=== PATIENT | female | born 1950 | race Two or more races ===

== ENCOUNTER 2016-03-10 15:09 | Emergency (ER) | payer MEDICARE, OTHER ==
[2016-03-10 15:42] LABS: ABSOLUTE BASOPHILS # (AUTO) 0.1 10^3/uL (0.0-0.2); ABSOLUTE EOSINOPHILS # (AUTO) 0.2 10^3/uL (0.0-0.6); ABSOLUTE LYMPHOCYTES (AUTO) 2.4 10^3/uL (0.5-4.7); ABSOLUTE MONOCYTES (AUTO) 0.7 10^3/uL (0.1-1.4); ABSOLUTE NEUT (AUTO) 7.4 10^3/uL (1.7-8.2); BASOPHILS % (AUTO) 0.7 % (0-2); EOSINOPHILS % (AUTO) 2.1 % (0-6); HEMATOCRIT 41.7 % (36.0-47.0); HEMOGLOBIN 13.9 g/dL (12.0-15.5); LYMPHOCYTES % (AUTO) 22.3 % (13-45); MEAN CORPUSCULAR HEMOGLOBIN 27.9 pg (27.0-33.4); MEAN CORPUSCULAR HGB CONC 33.3 g/dL (32.0-36.0); MEAN CORPUSCULAR VOLUME 84 fl (80-97); MONOCYTES % (AUTO) 6.7 % (3-13); RED BLOOD COUNT 4.97 10^6/uL (3.72-5.28); RED CELL DISTRIBUTION WIDTH 13.7 % (11.5-14.0); SEGMENTED NEUTROPHILS % (AUTO) 68.2 % (42-78); WHITE BLOOD COUNT 10.8 10^3/uL (4.0-10.5)
[2016-03-10 15:46] LABS: PROTHROMBIN TIME 11.9 SEC (11.4-15.4)
--- NOTE | 2016-03-10 16:01 | ER Document Report ---
ED General - General Chief Complaint: Blood Pressure Problem Stated Complaint: HEAD PAIN Time seen by provider: 15:56 Mode of Arrival: Medic Information source: Patient Notes: This is a 65-year-old female initially brought in by EMS because of marked elevation in blood pressure, headache, blurred vision. The blood pressure in the field was 260/120. EMS attempted to establish IV access and was unsuccessful. Patient did refuse nitroglycerin in the field. Patient currently states that she does have numbness to the mouth and to the right side. She was initially reluctant to tell me these things because she is fearful about it being admitted to the hospital. The patient states her symptoms started Wednesday (2 days ago). TRAVEL OUTSIDE OF THE [place] IN LAST 30 DAYS: No - HPI Onset: Last week Onset/Duration: Gradual Quality of pain: No pain Severity: None Pain Level: Denies Associated symptoms: denies: Chest pain, Fever Exacerbated by: Denies Relieved by: Denies Similar symptoms previously: No Recently seen / treated by doctor: No - Related Data Allergies/Adverse Reactions: latex [Latex] Allergy (Mild, Verified 11/02/12 11:50) RASH Penicillins Allergy (Mild, Verified 11/02/12 11:50) RASH, BREATHING DIFFICULTY Past Medical History - General Information source: Patient - Social History Smoking Status: Current Every Day Smoker Cigarette use (# per day): Yes - 1 pack per day Chew tobacco use (# tins/day): No Frequency of alcohol use: None Drug Abuse: None Lives with: Alone Family History: None Patient has suicidal ideation: No Patient has homicidal ideation: No - Past Medical History Cardiac Medical History: Denies: Hx Heart Attack, Hx Hypertension Pulmonary Medical History: Denies: Hx Asthma Neurological Medical History: Denies: Hx Cerebrovascular Accident, Hx Seizures Endocrine Medical History: Reports: Hx Diabetes Mellitus Type 2 Renal/ Medical History: Reports: None Malignancy Medical History: Reports: None GI Medical History: Denies: Hx Hepatitis, Hx Hiatal Hernia, Hx Ulcer Musculoskeltal Medical History: Reports None Skin Medical History: Reports None Psychiatric Medical History: Reports: None Traumatic Medical History: Reports: None Infectious Medical History: Denies: Hx Hepatitis Past Surgical History: Reports: Hx Hysterectomy. Denies: Hx Mastectomy, Hx Open Heart Surgery, Hx Pacemaker Review of Systems - Review of Systems Constitutional: No symptoms reported EENT: No symptoms reported Cardiovascular: See HPI Respiratory: No symptoms reported Gastrointestinal: No symptoms reported Genitourinary: No symptoms reported Female Genitourinary: No symptoms reported Musculoskeletal: No symptoms reported Skin: No symptoms reported Hematologic/Lymphatic: No symptoms reported Neurological/Psychological: See HPI Physical Exam - Vital signs Vitals: Pulse Ox 99 03/10/16 15:37 - Notes Notes: Physical exam: GENERAL: 65-year-old female, alert and oriented 2, no acute distress. HEAD: Atraumatic, normocephalic. EYES: Pupils equal round and reactive to light, extraocular movements intact, sclera anicteric, conjunctiva are normal. ENT: TMs normal, nares patent, oropharynx clear without exudates. Moist mucous membranes. NECK: Normal range of motion, supple without lymphadenopathy or JVD. LUNGS: Breath sounds clear to auscultation bilaterally and equal. No wheezes rales or rhonchi. HEART: Regular rate and rhythm without murmurs, rubs or gallops. ABDOMEN: Soft, nontender, normoactive bowel sounds. No guarding, no rebound. No masses appreciated. EXTREMITIES: Normal range of motion, no pitting or edema. No clubbing or cyanosis. NEUROLOGICAL: NIH score: Patient is alert and can minimally responsive, she the month and her age, she is able to follow commands, she has a good horizontal gaze, her visual weinstein are grossly intact, she has no facial palsy, she appears to have some right motor arm weakness and right motor leg weakness(the extremities drift but did not touch the bed), patient has good sensation to the right side of the face is an extremities, the patient's picture description, object naming and sentence reading is good, the patient's speech clarity is good. Finger to nose and heel to nunn ataxia is present in the right side. Patient's NIH score is 4: Right sided sensory loss, right upper and lower motor weakness, ataxia on the right. PSYCH: Normal mood, normal affect. SKIN: Warm, Dry, normal turgor, no rashes or lesions noted. Course - Re-evaluation Re-evalutation: 03/10/16 16:02 Note: Patient does not meet criteria for thrombolytics based upon the time of onset (2 days ago) and markedly elevated blood pressure. 03/10/16 23:04 Note: I have had a long discussion with the patient and the patient's son who is at the bedside. The patient absolutely refuses to come into the hospital. She is very apprehensive because she feels that the doctors "killed her " and she hates coming to the hospital and she has a dog at home and she refuses to come into the hospital. Her blood pressure is lower (significantly improved from 260/120) in the field. However, her blood pressure was still elevated. I have discussed with them my desire to have her admitted for a workup and to follow her blood pressure and lower a little bit more slowly. I have informed her that the risk of a secondary stroke which could be life- threatening and significantly debilitating if she did not . However, the patient still refuses to come into the hospital. I've advised her to increase the aspirin to one a day (full strength). The patient states she is unwilling to do this, but she will take 2 baby aspirins a day (81 mg 2). I have offered to write the patient for a "cholesterol medicine" explaining that these medicines have been found useful to prevent strokes and heart attacks, but the patient states her cholesterol has been fine and she refuses that. I have offered to write the patient a blood pressure medicine, but she is unwilling to take that. She will follow-up with her wire communications engineer (Dr. Lr). The son will be taking the patient home [facility] and a daughter is coming up from [place] and will stay with the patient. I have advised strongly that the patient should cut down on her smoking, but her reaction leads me to think that she won't be doing so. The patient did agree to return tomorrow morning for repeat blood pressure check and I informed her that I will be in the emergency room at 10 AM and I have strongly encouraged her to do this. I have referred the patient to a primary care physician (Dr. Linares). 03/10/16 23:09 - Vital Signs Vital signs: Temp Pulse Resp BP Pulse Ox 98.3 F 21 H 196/83 H 94 03/10/16 16:12 03/10/16 17:01 03/10/16 17:01 03/10/16 17:01 - Laboratory Result Diagrams: 03/10/16 15:25 03/10/16 15:25 Laboratory results interpreted by me: 03/10/16 03/10/16 15:25 15:25 WBC 10.8 H BUN 21 H Creatinine 1.37 H Est GFR ( Amer) 47 L Est GFR (Non-Af Amer) 38 L Glucose 194 H Alkaline Phosphatase 133 H Albumin 3.1 L - Diagnostic Test Radiology reviewed: Image reviewed, Reports reviewed - Rest x-ray shows no infiltrates - EKG Interpretation by Me Rate: Normal Rhythm: NSR - Normal sinus rhythm, nonspecific T changes laterally, LVH with strain. Critical Care Note - Critical Care Note Total time excluding time spent on procedures (mins): 60 Discharge - Discharge Clinical Impression: acute stroke, hypertensive emergency Condition: Serious Disposition: AGAINST MEDICAL ADVICE Additional Instructions: Recommendations: As we discussed, would like you to stop smoking cigarettes. Increase the dose of aspirin as we discussed. Follow-up with Dr. Lr this Wednesday. You will need an outpatient ultrasound of the carotid arteries and an ultrasound of the heart (ECHO) and reevaluation for your cholesterol. Follow-up with a primary care doctor: I left the number for Dr. Linares.\\ Return to the emergency room tomorrow morning as we discussed for repeat blood pressure check. Forms: Elevated Blood Pressure, Smoking Cessation Education Referrals: AIXA GUTIERREZ MD [ACTIVE STAFF] - Follow up as needed
[2016-03-10 16:02] LABS: ALANINE AMINOTRANSFERASE 25 U/L (9-52); ALBUMIN 3.1 g/dL (3.5-5.0); ALKALINE PHOSPHATASE 133 U/L (38-126); ANION GAP 7 (5-19); ASPARTATE AMINO TRANSFERASE 23 U/L (14-36); BILIRUBIN,TOTAL 0.6 mg/dL (0.2-1.3); BLOOD UREA NITROGEN 21 mg/dL (7-20); CALCIUM 9.2 mg/dL (8.4-10.2); CARBON DIOXIDE 27 mmol/L (22-30); CHLORIDE 104 mmol/L (98-107); CREATINE KINASE 42 U/L (30-135); CREATININE RESULT 1.37 mg/dL (0.52-1.25); GLUCOSE 194 mg/dL (75-110); POTASSIUM 4.1 mmol/L (3.6-5.0); SODIUM 138.1 mmol/L (137-145); TOTAL PROTEIN 6.7 g/dL (6.3-8.2)
[2016-03-10 16:14] LABS: CREATINE KINASE MB 0.88 ng/mL (<4.55)
[2016-03-10 16:22] LABS: TROPONIN I < 0.012 ng/mL
[2016-03-10] MEDS ORDERED: LABETALOL HCL INJ 20 MG/4 ML DISP.SYRIN IV ONE (17:19)
[2016-03-10 17:49] VITALS: BP 196/83
--- NOTE | 2016-03-11 15:40 | EKG REPORT ---
SEVERITY:- ABNORMAL ECG - SINUS RHYTHM PROBABLE LVH WITH SECONDARY REPOL ABNRM : Confirmed by: Dee Quinn 11-Mar-2016 15:39:25
== END 2016-03-10 18:03 | disposition left against medical advice (07) ==
LOC: ER 15:09
DX: I63.9 Cerebral infarction, unspecified (principal); I16.0 Hypertensive urgency; R51 Headache; H53.8 Other visual disturbances; F17.210 Nicotine dependence, cigarettes, uncomplicated
CPT/HCPCS: 36415; 70450; 71010; 80053; 82550; 82553; 84484; 85025; 85610; 93005; 93010; 99291

== ENCOUNTER 2016-03-11 09:27 | Observation (INO) | payer MEDICARE, OTHER ==
[2016-03-11] MEDS ORDERED: ASPIRIN 81 MG TABLET, CHEWABLE PO ONE (10:01)
[2016-03-11] MEDS ORDERED: LABETALOL HCL INJ 20 MG/4 ML DISP.SYRIN IV ONE ×2 (10:04→12:49)
--- NOTE | 2016-03-11 10:09 | ER Document Report ---
ED General - General Chief Complaint: Blood Pressure Problem Stated Complaint: BLOOD PRESSURE ISSUES Time seen by provider: 10:06 Mode of Arrival: Ambulatory Information source: Patient Notes: This is a 65-year-old female with a history of diabetes and smoking who presents for reevaluation of her blood pressure. Patient has been experiencing right-sided numbness and weakness for the past 3 days. She was initially brought in by EMS yesterday for strokelike symptoms in the setting of uncontrolled blood pressure. She did leave AMA at that time. She presents today and states she still having some of the numbness but it is improved somewhat. Her blood pressure is uncontrolled. TRAVEL OUTSIDE OF THE [place] IN LAST 30 DAYS: No - HPI Onset: Last week Onset/Duration: Gradual Quality of pain: No pain Severity: None Pain Level: Denies Associated symptoms: Headache. denies: Chills, Fever, Nausea, Vomiting, Shortness of breath Exacerbated by: Denies Relieved by: Denies Similar symptoms previously: Yes Recently seen / treated by doctor: Yes - Related Data Allergies/Adverse Reactions: latex [Latex] Allergy (Mild, Verified 03/11/16 09:34) RASH Penicillins Allergy (Mild, Verified 03/11/16 09:34) RASH, BREATHING DIFFICULTY acetaminophen [From Tylenol] Allergy (Verified 03/11/16 09:34) codeine Allergy (Verified 03/11/16 09:34) Past Medical History - General Information source: Patient - Social History Smoking Status: Current Every Day Smoker Cigarette use (# per day): Yes - 1 pack per day Chew tobacco use (# tins/day): No Frequency of alcohol use: None Drug Abuse: None Lives with: Alone Family History: None Patient has suicidal ideation: No Patient has homicidal ideation: No - Past Medical History Cardiac Medical History: Denies: Hx Heart Attack, Hx Hypertension Pulmonary Medical History: Denies: Hx Asthma Neurological Medical History: Denies: Hx Cerebrovascular Accident, Hx Seizures Endocrine Medical History: Reports: Hx Diabetes Mellitus Type 2 GI Medical History: Denies: Hx Hepatitis, Hx Hiatal Hernia, Hx Ulcer Infectious Medical History: Denies: Hx Hepatitis Past Surgical History: Reports: Hx Hysterectomy. Denies: Hx Mastectomy, Hx Open Heart Surgery, Hx Pacemaker Review of Systems - Review of Systems Constitutional: denies: Chills, Fever EENT: No symptoms reported Cardiovascular: No symptoms reported Respiratory: No symptoms reported Gastrointestinal: No symptoms reported Genitourinary: No symptoms reported Female Genitourinary: No symptoms reported Musculoskeletal: No symptoms reported Skin: No symptoms reported Hematologic/Lymphatic: No symptoms reported Neurological/Psychological: See HPI Physical Exam - Vital signs Vitals: Temp Pulse Resp BP Pulse Ox 97.8 F 85 18 216/97 H 96 03/11/16 09:38 03/11/16 09:38 03/11/16 09:38 03/11/16 09:38 03/11/16 09:38 Notes: Physical exam: GENERAL: HEAD: Atraumatic, normocephalic. EYES: Pupils equal round and reactive to light, extraocular movements intact, sclera anicteric, conjunctiva are normal. ENT: TMs normal, nares patent, oropharynx clear without exudates. Moist mucous membranes. NECK: Normal range of motion, supple without lymphadenopathy or JVD. LUNGS: Breath sounds clear to auscultation bilaterally and equal. No wheezes rales or rhonchi. HEART: Regular rate and rhythm without murmurs, rubs or gallops. ABDOMEN: Soft, nontender, normoactive bowel sounds. No guarding, no rebound. No masses appreciated. EXTREMITIES: Normal range of motion, no pitting or edema. No clubbing or cyanosis. NEUROLOGICAL: Cranial nerves II through XII grossly intact. Subjective right- sided numbness, weakness has improved since yesterday. PSYCH: Normal mood, normal affect. SKIN: Warm, Dry, normal turgor, no rashes or lesions noted. Course - Re-evaluation Re-evalutation: 03/11/16 12:46 Note: Patient presents with symptoms consistent with a stroke 3-4 days ago. She is not a candidate for thrombolytics. She does have uncontrolled hypertension. BP: 193/88, P78 after 10 mg of labetalol. We are attempting to avoid precipitous drop in her blood pressure, but we do want to maintain a lower level. Will give more of labetalol and continue to monitor. 03/11/16 12:49 03/11/16 13:01 - Vital Signs Vital signs: Temp Pulse Resp BP Pulse Ox 97.8 F 85 20 186/105 H 97 03/11/16 09:38 03/11/16 09:38 03/11/16 12:02 03/11/16 12:02 03/11/16 10:06 - Laboratory Result Diagrams: 03/11/16 12:07 03/11/16 12:07 - EKG Interpretation by Me Rate: Normal Rhythm: NSR - EKG shows normal sinus rhythm with a ventricular rate of 75, LVH. Discharge - Discharge Clinical Impression: CVA, uncontrolled hypertension Condition: Stable Disposition: ADMITTED INPATIENT Admitting Provider: Hospitalist - Dr. delong Unit Admitted: [facility]
[2016-03-11] MEDS ORDERED: ASPIRIN 325 MG TABLET PO SCH (11:30)
[2016-03-11 12:23] LABS: ABSOLUTE BASOPHILS # (AUTO) 0.1 10^3/uL (0.0-0.2); ABSOLUTE EOSINOPHILS # (AUTO) 0.2 10^3/uL (0.0-0.6); ABSOLUTE LYMPHOCYTES (AUTO) 2.7 10^3/uL (0.5-4.7); ABSOLUTE MONOCYTES (AUTO) 0.6 10^3/uL (0.1-1.4); ABSOLUTE NEUT (AUTO) 5.6 10^3/uL (1.7-8.2); EOSINOPHILS % (AUTO) 2.4 % (0-6); HEMATOCRIT 42.4 % (36.0-47.0); HEMOGLOBIN 14.2 g/dL (12.0-15.5); HGB HCT DIFFERENCE 0.2; MEAN CORPUSCULAR HEMOGLOBIN 27.9 pg (27.0-33.4); MEAN CORPUSCULAR HGB CONC 33.4 g/dL (32.0-36.0); MEAN CORPUSCULAR VOLUME 83 fl (80-97); MONOCYTES % (AUTO) 6.7 % (3-13); RED BLOOD COUNT 5.08 10^6/uL (3.72-5.28); RED CELL DISTRIBUTION WIDTH 13.5 % (11.5-14.0); SEGMENTED NEUTROPHILS % (AUTO) 60.9 % (42-78); WHITE BLOOD COUNT 9.2 10^3/uL (4.0-10.5)
[2016-03-11 12:39] LABS: ALANINE AMINOTRANSFERASE 27 U/L (9-52); ALBUMIN 3.2 g/dL (3.5-5.0); ALKALINE PHOSPHATASE 126 U/L (38-126); ANION GAP 10 (5-19); ASPARTATE AMINO TRANSFERASE 14 U/L (14-36); BILIRUBIN,TOTAL 0.9 mg/dL (0.2-1.3); BLOOD UREA NITROGEN 18 mg/dL (7-20); CALCIUM 9.3 mg/dL (8.4-10.2); CARBON DIOXIDE 25 mmol/L (22-30); CHLORIDE 103 mmol/L (98-107); CREATINE KINASE 46 U/L (30-135); CREATININE RESULT 1.38 mg/dL (0.52-1.25); GLUCOSE 145 mg/dL (75-110); POTASSIUM 4.2 mmol/L (3.6-5.0); SODIUM 137.8 mmol/L (137-145); TOTAL PROTEIN 6.2 g/dL (6.3-8.2)
[2016-03-11 12:52] LABS: CREATINE KINASE MB 0.96 ng/mL (<4.55); TROPONIN I < 0.012 ng/mL
[2016-03-11] MEDS ORDERED: ENOXAPARIN SODIUM INJ 40 MG/0.4 ML DISP.SYRIN SUBCUT ONE (14:00)
--- NOTE | 2016-03-11 15:39 | EKG REPORT ---
SEVERITY:- ABNORMAL ECG - SINUS RHYTHM PROBABLE LVH WITH SECONDARY REPOL ABNRM : Confirmed by: Dee Quinn 11-Mar-2016 15:39:14
[2016-03-11] MEDS ORDERED: LABETALOL HCL INJ 20 MG/4 ML DISP.SYRIN IV PRN (17:49)
[2016-03-11] MEDS ORDERED: AMLODIPINE BESYLATE 10 MG TABLET PO ONE (18:00)
--- NOTE | 2016-03-11 18:07 | XCELERA REPORT ---
[address] [address] Transthoracic Echocardiogram Report Name: GEORGE LAUGHLIN Age: 65 yrs Gender: Female : 1950 Patient Status: Inpatient Patient Location: \S\[facility]\S\A Study Date: 03/11/2016 03:11 PM Height: 63 in Weight: 145 lb BSA: 1.7 m2 Procedure: A two-dimensional transthoracic echocardiogram with color flow and Doppler was performed. Study Quality: Fair. Reason For Study: TIA History: TIA. Ordering Physician: MARKELL SAWANT Performed By: Crystal Taylor Interpretation Summary There is no obvious cardiac source of embolus noted on this transthoracic echocardiogram. Follow-up with a TOMA is suggested if cardiac source is still suspected. The left ventricle is normal in size. Mild to moderate concentric LVH. LV EF is > than 60% Left ventricular systolic function is normal. Doppler measurements suggest impaired left ventricular relaxation, which is associated with grade I/IV or mild diastolic dysfunction The left ventricular wall motion is normal. The left atrial size is normal. The interatrial septum is intact with no evidence for an atrial septal defect. There is no mitral valve stenosis. There is no mitral regurgitation noted. There is no evidence of mitral valve prolapse. There is no aortic valve stenosis There is no LVOT obstruction. No aortic regurgitation is present. There is no tricuspid stenosis. No tricuspid regurgitation. Unable to calcilate RVSP due to insufficient TR jet. There is no pericardial effusion. MMode/2D Measurements \T\ Calculations RVDd: 2.4 cm LVIDd: 4.1 cm FS: 20.2 % Ao root diam: 3.3 cm IVSd: 1.4 cm LVIDs: 3.3 cm EDV(Teich): 76.2 ml LVPWd: 1.4 cm ESV(Teich): 44.4 ml Ao root area: 8.3 cm2 EF(Teich): 41.7 % LA dimension: 3.7 cm LVOT diam: 2.2 cm LVOT area: 4.0 cm2 Doppler Measurements \T\ Calculations MV E max avel: MV P1/2t max avel: Ao V2 max: LV V1 max P.3 cm/sec 90.8 cm/sec 154.2 cm/sec 3.8 mmHg MV A max avel: MV P1/2t: 61.5 msec Ao max PG: LV V1 max: 109.6 cm/sec MVA(P1/2t): 3.6 cm2 9.5 mmHg 97.2 cm/sec MV E/A: 0.82 MV dec slope: MEGAN(V,D): 2.5 cm2 432.2 cm/sec2 MV dec time: 0.23 sec PA V2 max: 78.0 cm/sec PA max P.4 mmHg Left Ventricle The left ventricle is normal in size. Mild to moderate concentric LVH. LV EF is > than 60%. Left ventricular systolic function is normal. Doppler measurements suggest impaired left ventricular relaxation, which is associated with grade I/IV or mild diastolic dysfunction. The left ventricular wall motion is normal. There is no thrombus. There is no ventricular septal defect visualized. Right Ventricle The right ventricle is normal in size and function. Atria The right atrium is normal. The left atrial size is normal. The interatrial septum is intact with no evidence for an atrial septal defect. Mitral Valve There is mild mitral annular calcification. There is no evidence of mitral valve prolapse. There is no vegetation seen on the mitral valve. There is no mitral valve stenosis. There is no mitral regurgitation noted. Aortic Valve There is no aortic valvular vegetation. There is no aortic valve stenosis. There is no LVOT obstruction. No aortic regurgitation is present. Tricuspid Valve There is no tricuspid stenosis. No tricuspid regurgitation. Unable to calcilate RVSP due to insufficient TR jet. Pulmonic Valve There is no pulmonic valvular stenosis. There is no pulmonic valvular regurgitation. Great Vessels The aortic root is normal size. Effusions There is no pericardial effusion. : MARKELL SAWANT > Liya De Leon
--- NOTE | 2016-03-11 18:09 | PDOC H&P ---
History of Present Illness Admission Date/PCP: 03/11/16 12:31 CHARLENE ORTIZ Patient complains of: intermittent blurred vision, headache, numbness rt arm History of Present Illness: GEORGE LAUGHLIN is a 65 year old female ith a history of diabetes and smoking who presents for reevaluation of her blood pressure. Patient has been experiencing right-sided numbness and weakness for the past 3 days. She was initially brought in by EMS yesterday for strokelike symptoms in the setting of uncontrolled blood pressure. She did leave AMA at that time. She presents today and states she still having some of the numbness but it is improved somewhat. Her blood pressure is uncontrolled. Patient had a negative CT Scan of the brain in the ED She was subsequently admitted to a telemetry unit under Hospitalist service for further evaluation Past Medical History Cardiac Medical History: Denies: Myocardial Infarction, Hypertension Pulmonary Medical History: Denies: Asthma Neurological Medical History: Denies: Seizures Endocrine Medical History: Reports: Diabetes Mellitus Type 2 Malignancy Medical History: Reports: None GI Medical History: Reports: None Denies: Hepatitis, Hiatal Hernia Musculoskeltal Medical History: Reports: None Skin Medical History: Reports: None Psychiatric Medical History: Reports: None Hematology: Denies: Anemia, Sickle Cell Disease Past Surgical History Past Surgical History: Reports: Hysterectomy Denies: Amputation, Mastectomy, Pacemaker Social History Lives with: Alone Smoking Status: Current Every Day Smoker Cigarettes Packs Per Day: 1 Number of Years Smokin Last Time Smoked: t Frequency of Alcohol Use: None Hx Recreational Drug Use: No Drugs: None Hx Prescription Drug Abuse: No - Advance Directive Resuscitation Status: Do Not Resuscitate Surrogate healthcare decision maker:: daughter and son Asael Family History Family History: None Parental Family History Reviewed: Yes - mother CHF , father leukemia Children Family History Reviewed: Yes Sibling(s) Family History Reviewed.: Yes Medication/Allergy Home Medications: Aspirin [Aspirin EC] 81 mg PO DAILY 03/11/16 Cholecalciferol (Vitamin D3) [Vitamin D3] 400 mg PO DAILY 03/11/16 Insulin Aspart [Novolog Insulin (Aspart) 100 unit/mL] 0 units SQ ASDIR PRN 03/11 Insulin Glargine,Hum.rec.anlog [Lantus] 40 units SQ BID 03/11/16 Liraglutide [Victoza 2-Miko] 1.8 mg SQ DAILY 03/11/16 Allergies/Adverse Reactions: latex [Latex] Allergy (Mild, Verified 03/11/16 09:34) RASH Penicillins Allergy (Mild, Verified 03/11/16 09:34) RASH, BREATHING DIFFICULTY acetaminophen [From Tylenol] Allergy (Verified 03/11/16 09:34) codeine Allergy (Verified 03/11/16 09:34) Review of Systems Constitutional: ABSENT: chills, fever(s), headache(s), weight gain, weight loss Eyes: ABSENT: visual disturbances Ears: ABSENT: hearing changes Cardiovascular: ABSENT: chest pain, dyspnea on exertion, edema, orthropnea, palpitations Respiratory: ABSENT: cough, hemoptysis Gastrointestinal: ABSENT: abdominal pain, constipation, diarrhea, hematemesis, hematochezia, nausea, vomiting Genitourinary: ABSENT: dysuria, hematuria Musculoskeletal: ABSENT: joint swelling Integumentary: ABSENT: rash, wounds Neurological: PRESENT: numbness, tingling, other - occipital headache. ABSENT: abnormal gait, abnormal speech, confusion, dizziness, focal weakness, syncope Psychiatric: ABSENT: anxiety, depression, homidical ideation, suicidal ideation Endocrine: ABSENT: cold intolerance, heat intolerance, polydipsia, polyuria Hematologic/Lymphatic: ABSENT: easy bleeding, easy bruising Physical Exam Vital Signs: Temp Pulse Resp BP Pulse Ox 98.0 F 74 16 180/79 H 96 03/11/16 16:05 03/11/16 16:05 03/11/16 16:05 03/11/16 16:12 03/11/16 16:05 Intake & Output 03/10/16 03/11/16 03/12/16 00:59 00:59 00:59 Weight 67.5 kg General appearance: PRESENT: no acute distress, well-developed, well-nourished Head exam: PRESENT: atraumatic, normocephalic Eye exam: PRESENT: conjunctiva pink, EOMI, PERRLA. ABSENT: scleral icterus Ear exam: PRESENT: normal external ear exam Mouth exam: PRESENT: moist, tongue midline Neck exam: ABSENT: carotid bruit, JVD, lymphadenopathy, thyromegaly Respiratory exam: PRESENT: clear to auscultation nicole. ABSENT: rales, rhonchi, wheezes Cardiovascular exam: PRESENT: RRR. ABSENT: diastolic murmur, rubs, systolic murmur Pulses: PRESENT: normal dorsalis pedis pul Vascular exam: PRESENT: normal capillary refill GI/Abdominal exam: PRESENT: normal bowel sounds, soft. ABSENT: distended, guarding, mass, organolmegaly, rebound, tenderness Rectal exam: PRESENT: deferred Extremities exam: PRESENT: full ROM. ABSENT: calf tenderness, clubbing, pedal edema Neurological exam: PRESENT: alert, awake, oriented to person, oriented to place , oriented to time, oriented to situation, CN II-XII grossly intact. ABSENT: motor sensory deficit Psychiatric exam: PRESENT: appropriate affect, normal mood. ABSENT: homicidal ideation, suicidal ideation Skin exam: PRESENT: dry, intact, warm. ABSENT: cyanosis, rash Results Laboratory Results: 03/11/16 16:37 Troponin I < 0.012 Labs- All tests 24 hr 03/11/16 03/11/16 03/11/16 12:07 12:07 12:07 WBC 9.2 RBC 5.08 Hgb 14.2 Hct 42.4 MCV 83 MCH 27.9 MCHC 33.4 RDW 13.5 Plt Count 289 Seg Neutrophils % 60.9 Lymphocytes % 29.0 Monocytes % 6.7 Eosinophils % 2.4 Basophils % 1.0 Absolute Neutrophils 5.6 Absolute Lymphocytes 2.7 Absolute Monocytes 0.6 Absolute Eosinophils 0.2 Absolute Basophils 0.1 Sodium 137.8 Potassium 4.2 Chloride 103 Carbon Dioxide 25 Anion Gap 10 BUN 18 Creatinine 1.38 H Est GFR ( Amer) 46 L Est GFR (Non-Af Amer) 38 L Glucose 145 H Calcium 9.3 Total Bilirubin 0.9 Direct Bilirubin 0.0 AST 14 ALT 27 Alkaline Phosphatase 126 Creatine Kinase 46 CK-MB (CK-2) 0.96 Troponin I < 0.012 Total Protein 6.2 L Albumin 3.2 L 03/11/16 16:37 WBC RBC Hgb Hct MCV MCH MCHC RDW Plt Count Seg Neutrophils % Lymphocytes % Monocytes % Eosinophils % Basophils % Absolute Neutrophils Absolute Lymphocytes Absolute Monocytes Absolute Eosinophils Absolute Basophils Sodium Potassium Chloride Carbon Dioxide Anion Gap BUN Creatinine Est GFR ( Amer) Est GFR (Non-Af Amer) Glucose Calcium Total Bilirubin Direct Bilirubin AST ALT Alkaline Phosphatase Creatine Kinase CK-MB (CK-2) Troponin I < 0.012 Total Protein Albumin Impressions: Head MRI 03/11/16 12:37 IMPRESSION: No acute findings Mild spotty white matter disease with old lacunar infarcts in the right basal ganglia and left thalamus as above. Carotid Doppler Study 03/11/16 12:45 IMPRESSION: NO HEMODYNAMICALLY SIGNIFICANT STENOSIS AT THE CAROTID BIFURCATION. Assessment & Plan - Diagnosis (1) TIA (transient ischemic attack) Qualifiers: Transient cerebral ischemia type: unspecified Qualified Code(s): G45.9 - Transient cerebral ischemic attack, unspecified Is this a current diagnosis for this admission?: YesPlan: Patient will be admitted to telemetry unit for observation She will undergo MRI of the brain carotid ultrasound echocardiogram ; we will monitor her for 24 hours Serial EKG and a cardiac enzymes will be ordered Patient will be started on Ecotrin 325 mg by mouth daily and Lipitor 80 mg at bedtime (2) Accelerated hypertension Is this a current diagnosis for this admission?: YesPlan: We will treat the patient if blood pressure is over 180 with intermittent doses of labetalol Norvasc 10 mg daily will be ordered (3) Diabetes mellitus Qualifiers: Diabetes mellitus complication status: without complication Diabetes mellitus shelter insulin use: without keno terminal operator use Is this a current diagnosis for this admission?: YesPlan: Obtain hemoglobin A1c and lipid profile in a.m. Continue home meds Accu-Cheks before meals at bedtime and lispro coverage (4) DVT prophylaxis Is this a current diagnosis for this admission?: YesPlan: Teds and Lovenox subcutaneous - Time Time Spent: Greater than 70 Minutes - Inpatient Certification Based on my medical assessment, after consideration of the patient's comorbidities, presenting symptoms, or acuity I expect that the services needed warrant INPATIENT care.: No I certify that my determination is in accordance with my understanding of Medicare's requirements for reasonable and necessary INPATIENT services [42 CFR 412.3e].: Yes
[2016-03-11] MEDS ORDERED: INSULIN LISPRO 100 UNIT/ML 3 ML VIAL SUBCUT PRN (18:10)
[2016-03-11] MEDS ORDERED: GLUCAGON,HUMAN RECOMB 1 MG INJ IM PRN (18:10)
[2016-03-11] MEDS ORDERED: DEXTROSE 50%-WATER 25 GM/50 ML DISP.SYRIN IV PRN ×2 (18:10)
[2016-03-11] MEDS ORDERED: DEXTROSE 40% GEL 15 GM TUBE PO PRN ×2 (18:10)
[2016-03-11] MEDS: FAMOTIDINE 20 MG TABLET PO SCH (21:08)
[2016-03-11] MEDS ORDERED: ATORVASTATIN CALCIUM 80 MG TABLET PO SCH (22:00)
[2016-03-11] MEDS: INSULIN GLARGINE,HUM.REC.ANLOG 1,000 UNIT/10 ML UNIT SUBCUT SCH (22:54)
[2016-03-12 04:46] LABS: ABSOLUTE BASOPHILS # (AUTO) 0.1 10^3/uL (0.0-0.2); ABSOLUTE EOSINOPHILS # (AUTO) 0.2 10^3/uL (0.0-0.6); ABSOLUTE LYMPHOCYTES (AUTO) 1.8 10^3/uL (0.5-4.7); ABSOLUTE MONOCYTES (AUTO) 0.6 10^3/uL (0.1-1.4); ABSOLUTE NEUT (AUTO) 5.3 10^3/uL (1.7-8.2); BASOPHILS % (AUTO) 0.8 % (0-2); HEMATOCRIT 37.5 % (36.0-47.0); HEMOGLOBIN 12.3 g/dL (12.0-15.5); HGB HCT DIFFERENCE -0.6; LYMPHOCYTES % (AUTO) 22.4 % (13-45); MEAN CORPUSCULAR HEMOGLOBIN 27.7 pg (27.0-33.4); MEAN CORPUSCULAR HGB CONC 32.9 g/dL (32.0-36.0); MEAN CORPUSCULAR VOLUME 84 fl (80-97); RED BLOOD COUNT 4.45 10^6/uL (3.72-5.28); RED CELL DISTRIBUTION WIDTH 13.6 % (11.5-14.0); SEGMENTED NEUTROPHILS % (AUTO) 66.8 % (42-78); WHITE BLOOD COUNT 7.9 10^3/uL (4.0-10.5)
[2016-03-12 05:08] LABS: CHOLESTEROL 272.17 mg/dL (0-200); Direct HDL 42 mg/dL (>40); TRIGLYCERIDES 255 mg/dL (<150)
[2016-03-12 05:19] LABS: DIRECT LDL 199 mg/dL (<100)
--- NOTE | 2016-03-12 07:54 | EKG REPORT ---
SEVERITY:- ABNORMAL ECG - SINUS RHYTHM PROBABLE LEFT ATRIAL ABNORMALITY CONSIDER ANTEROSEPTAL INFARCT : Confirmed by: Dee Quinn 12-Mar-2016 07:53:29
[2016-03-12] MEDS ORDERED: ENOXAPARIN SODIUM INJ 40 MG/0.4 ML DISP.SYRIN SUBCUT SCH (08:00)
[2016-03-12] MEDS ORDERED: LOSARTAN POTASSIUM 50 MG TABLET PO SCH (09:00)
[2016-03-12] MEDS ORDERED: CHOLECALCIFEROL (D3) 400 UNIT TABLET PO SCH (10:00)
[2016-03-12] MEDS ORDERED: ASPIRIN 325 MG TABLET, ENT COATED PO SCH (10:00)
[2016-03-12] MEDS ORDERED: AMLODIPINE BESYLATE 10 MG TABLET PO SCH (10:00)
[2016-03-12] MEDS ORDERED: INSULIN GLARGINE,HUM.REC.ANLOG 1,000 UNIT/10 ML UNIT SUBCUT SCH ×2 (10:00→22:00)
[2016-03-12] MEDS: FAMOTIDINE 20 MG TABLET PO SCH (10:06)
[2016-03-12] MEDS: INSULIN GLARGINE,HUM.REC.ANLOG 1,000 UNIT/10 ML UNIT SUBCUT SCH (10:06)
--- NOTE | 2016-03-12 11:13 | PDOC DISCHARGE SUMMARY ---
General - Admit/Disc Date/PCP Admission Date/Primary Care Provider: 03/11/16 12:31 CHARLENE LR Discharge Date: 03/12/16 - Discharge Diagnosis (1) TIA (transient ischemic attack) Is this a current diagnosis for this admission?: Yes (2) Accelerated hypertension Is this a current diagnosis for this admission?: Yes (3) Diabetes mellitus Is this a current diagnosis for this admission?: Yes (4) DVT prophylaxis Is this a current diagnosis for this admission?: Yes (5) Hyperlipidemia Is this a current diagnosis for this admission?: Yes - Additional Information Resuscitation Status: Do Not Resuscitate Discharge Diet: Cardiac, Diabetic Discharge Activity: Activity As Tolerated Home Medications: Cholecalciferol (Vitamin D3) [Vitamin D3] 400 mg PO DAILY 03/11/16 Insulin Aspart [Novolog Insulin (Aspart) 100 unit/mL] 0 units SQ ASDIR PRN 03/11 Insulin Glargine,Hum.rec.anlog [Lantus] 40 units SQ BID 03/11/16 Liraglutide [Victoza 2-Miko] 1.8 mg SQ DAILY 03/11/16 Amlodipine Besylate [Norvasc 10 mg Tablet] 10 mg PO DAILY #30 tablet 03/12/16 Clopidogrel Bisulfate [Plavix 75 mg Tablet] 75 mg PO DAILY #30 tablet 03/12/16 Losartan Potassium [Cozaar 50 mg Tablet] 50 mg PO DAILY #30 tablet 03/12/16 Rosuvastatin Calcium [Crestor 20 mg Tablet] 20 mg PO QHS #30 tablet 03/12/16 History of Present Illness Patient complains of: headache, blurred vision and numbness right arm History of Present Illness: GEORGE LAUGHLIN is a 65 year old female ith a history of diabetes and smoking who presents for reevaluation of her blood pressure. Patient has been experiencing right-sided numbness and weakness for the past 3 days. She was initially brought in by EMS yesterday for strokelike symptoms in the setting of uncontrolled blood pressure. She did leave AMA at that time. She presents today and states she still having some of the numbness but it is improved somewhat. Her blood pressure is uncontrolled. Patient had a negative CT Scan of the brain in the ED She was subsequently admitted to a telemetry unit under Hospitalist service for further evaluation Hospital Course Hospital Course: 1 accelerated hypertension Patient was treated with Norvasc and intermittent doses of labetalol On day of discharge patient's blood pressure is 167/58 She will be discharged on Norvasc and losartan 2-hyperlipidemia Lipitor 80 mg was a prescribed during her hospital stay Patient states she did not tolerate Lipitor in the past we did discharge her on Crestor 20 mg q HS Edward he is all I think he could not reach me: Dennis was a local Patient is followed by Dr. Lr Her hemoglobin A1c was over 9; she will follow up in the office 4 TIA like episode Physical Exam Vital Signs: Temp Pulse Resp BP Pulse Ox 97.9 F 73 16 167/58 H 97 03/12/16 07:13 03/12/16 07:13 03/12/16 07:13 03/12/16 07:13 03/12/16 07:13 Intake & Output 03/11/16 03/12/16 03/13/16 00:59 00:59 00:59 Intake Total 250 150 Balance 250 150 Weight 67.5 kg 68.2 kg Results Laboratory Results: 03/12/16 04:23 03/12/16 03/12/16 03/12/16 04:23 04:23 04:23 WBC 7.9 RBC 4.45 Hgb 12.3 Hct 37.5 MCV 84 MCH 27.7 MCHC 32.9 RDW 13.6 Plt Count 246 Seg Neutrophils % 66.8 Lymphocytes % 22.4 Monocytes % 7.0 Eosinophils % 3.0 Basophils % 0.8 Absolute Neutrophils 5.3 Absolute Lymphocytes 1.8 Absolute Monocytes 0.6 Absolute Eosinophils 0.2 Absolute Basophils 0.1 Triglycerides 255 H Cholesterol 272.17 H LDL Cholesterol Direct 199 H VLDL Cholesterol 51.0 H HDL Cholesterol 42 TSH 1.21 03/11/16 03/11/16 03/12/16 16:37 22:20 04:23 Troponin I < 0.012 < 0.012 < 0.012 Impressions: Head MRI 03/11/16 12:37 IMPRESSION: No acute findings Mild spotty white matter disease with old lacunar infarcts in the right basal ganglia and left thalamus as above. Carotid Doppler Study 03/11/16 12:45 IMPRESSION: NO HEMODYNAMICALLY SIGNIFICANT STENOSIS AT THE CAROTID BIFURCATION.
[2016-03-12 12:40] VITALS: BP 180/79
== END 2016-03-12 13:00 | disposition home or self-care (01) ==
LOC: ER 09:27 → UNDOADMIN 10:58 → EH 10:58 → INTOOBSV 12:31 → EH 12:31 → 3W 15:56
PROVIDERS: ADMIT Emergency Medicine; ATTEND Emergency Medicine
DX: I63.9 Cerebral infarction, unspecified (principal); I10 Essential (primary) hypertension; E11.9 Type 2 diabetes mellitus without complications; E78.5 Hyperlipidemia, unspecified; Z79.4 Long term (current) use of insulin; Z79.01 Long term (current) use of anticoagulants; F17.200 Nicotine dependence, unspecified, uncomplicated
CPT/HCPCS: 93005 ×2; 99284; 36415 ×2; 82553; 82962 ×2; 82550; 84443; 85025 ×2; 80053; 84484 ×2; 83036; 80061; 93306; 93880; 70551; 93010 ×2; G0378 ×3; A9270 ×6; J3490; J1815

== ENCOUNTER 2016-03-25 19:39 | Emergency (ER) | payer MEDICARE, OTHER ==
--- NOTE | 2016-03-25 19:54 | ER Document Report ---
ED Medical Screen (RME) - General Stated Complaint: FALL/BACK PAIN Mode of Arrival: Wheelchair Information source: Relative - son Notes: Patient presents to the emergency department for recent stroke, fall yesterday complaining of right-sided pain. Denies neck pain when moving head side-to- side without problems. Son reports patient has no strength. He reports this is new since she's been discharged from the hospital on March 13. I have greeted and performed a rapid initial assessment of this patient. A comprehensive ED assessment and evaluation of the patient, analysis of test results and completion of the medical decision making process will be conducted by additional ED providers. -I have consulted the attending provider per [employer] guidelines TRAVEL OUTSIDE OF THE [place] IN LAST 30 DAYS: No - Related Data Allergies/Adverse Reactions: latex [Latex] Allergy (Mild, Verified 03/11/16 09:34) RASH Penicillins Allergy (Mild, Verified 03/11/16 09:34) RASH, BREATHING DIFFICULTY acetaminophen [From Tylenol] Allergy (Verified 03/11/16 09:34) codeine Allergy (Verified 03/11/16 09:34) Past Medical History - Past Medical History Cardiac Medical History: Denies: Hx Heart Attack, Hx Hypertension Pulmonary Medical History: Denies: Hx Asthma Neurological Medical History: Denies: Hx Cerebrovascular Accident, Hx Seizures Endocrine Medical History: Reports: Hx Diabetes Mellitus Type 2 GI Medical History: Denies: Hx Hepatitis, Hx Hiatal Hernia, Hx Ulcer Infectious Medical History: Denies: Hx Hepatitis Past Surgical History: Reports: Hx Hysterectomy. Denies: Hx Mastectomy, Hx Open Heart Surgery, Hx Pacemaker Physical Exam - Vital signs Vitals: Temp Pulse Resp BP Pulse Ox 98.0 F 79 18 162/80 H 95 03/25/16 19:48 03/25/16 19:48 03/25/16 19:48 03/25/16 19:48 03/25/16 19:48 Course - Vital Signs Vital signs: Temp Pulse Resp BP Pulse Ox 98.0 F 79 18 162/80 H 95 03/25/16 19:48 03/25/16 19:48 03/25/16 19:48 03/25/16 19:48 03/25/16 19:48
[2016-03-25 20:31] LABS: ABSOLUTE MONOCYTES (AUTO) 0.8 10^3/uL (0.1-1.4); ABSOLUTE NEUT (AUTO) 3.7 10^3/uL (1.7-8.2); BASOPHILS % (AUTO) 0.7 % (0-2); EOSINOPHILS % (AUTO) 0.8 % (0-6); HEMATOCRIT 46.4 % (36.0-47.0); HEMOGLOBIN 14.6 g/dL (12.0-15.5); HGB HCT DIFFERENCE -2.6; LYMPHOCYTES % (AUTO) 17.9 % (13-45); MEAN CORPUSCULAR HEMOGLOBIN 27.1 pg (27.0-33.4); MEAN CORPUSCULAR HGB CONC 31.5 g/dL (32.0-36.0); MEAN CORPUSCULAR VOLUME 86 fl (80-97); MONOCYTES % (AUTO) 13.8 % (3-13); RED BLOOD COUNT 5.39 10^6/uL (3.72-5.28); RED CELL DISTRIBUTION WIDTH 14.3 % (11.5-14.0); SEGMENTED NEUTROPHILS % (AUTO) 66.8 % (42-78); WHITE BLOOD COUNT 5.5 10^3/uL (4.0-10.5)
[2016-03-25 20:44] LABS: ALANINE AMINOTRANSFERASE 22 U/L (9-52); ALBUMIN 3.2 g/dL (3.5-5.0); ALKALINE PHOSPHATASE 112 U/L (38-126); ANION GAP 15 (5-19); ASPARTATE AMINO TRANSFERASE 28 U/L (14-36); BILIRUBIN,TOTAL 0.5 mg/dL (0.2-1.3); BLOOD UREA NITROGEN 21 mg/dL (7-20); CALCIUM 9.2 mg/dL (8.4-10.2); CARBON DIOXIDE 15 mmol/L (22-30); CHLORIDE 109 mmol/L (98-107); CREATININE RESULT 1.45 mg/dL (0.52-1.25); GLUCOSE 126 mg/dL (75-110); SODIUM 138.5 mmol/L (137-145); TOTAL PROTEIN 6.4 g/dL (6.3-8.2)
[2016-03-25] MEDS ORDERED: OXYCODONE HCL IR 5 MG TABLET PO ONE ×2 (21:29→23:58)
--- NOTE | 2016-03-25 21:33 | ER Document Report ---
ED Fall - General Chief Complaint: Fall Stated Complaint: FALL/BACK PAIN Time seen by provider: 21:31 Mode of Arrival: Wheelchair Information source: Relative - son Notes: The patient is a 65-year-old female with a history of accelerated hypertension, dyslipidemia, recent stroke symptoms with workup. Patient presents to the emergency room after a fall at home. She fell back hitting the right side of her body, back and head. She is complaining of pain. There is no loss of consciousness. Patient does report that since leaving the hospital, she's had decreased by mouth intake and her medicines bother her in the morning. TRAVEL OUTSIDE OF THE [place] IN LAST 30 DAYS: No - HPI Occurred: Just prior to arrival Where: Home Context: Slipped Associated symptoms: denies: Lost consciousness, Dazed/confused, Seizure, Difficulty breathing, Difficulty walking, Became dizzy/fainted, Blood in stool Location of injury/pain: Back Quality of pain: Dull Severity: Moderate Pain Level: 3 Prehospital interventions: No: C-collar, Backboard, KENNETH, IV, IO, BVM, Dg airway, Nasal airway, Oral airway, Intubation, Needle decompression, Splints, Wound care, Analgesia, Cardiac medications, CPR, Defibrillation, Other - Related data Allergies/Adverse Reactions: latex [Latex] Allergy (Mild, Verified 03/11/16 09:34) RASH Penicillins Allergy (Mild, Verified 03/11/16 09:34) RASH, BREATHING DIFFICULTY acetaminophen [From Tylenol] Allergy (Verified 03/11/16 09:34) codeine Allergy (Verified 03/11/16 09:34) Past Medical History - General Information source: Relative - son - Social History Smoking Status: Current Every Day Smoker Cigarette use (# per day): No Chew tobacco use (# tins/day): No Frequency of alcohol use: None Drug Abuse: None Family History: None Patient has suicidal ideation: No Patient has homicidal ideation: No - Past Medical History Cardiac Medical History: Denies: Hx Heart Attack, Hx Hypertension Pulmonary Medical History: Denies: Hx Asthma Neurological Medical History: Denies: Hx Cerebrovascular Accident, Hx Seizures Endocrine Medical History: Reports: Hx Diabetes Mellitus Type 2 Renal/ Medical History: Denies: Hx Peritoneal Dialysis GI Medical History: Denies: Hx Hepatitis, Hx Hiatal Hernia, Hx Ulcer Infectious Medical History: Denies: Hx Hepatitis Past Surgical History: Reports: Hx Hysterectomy. Denies: Hx Mastectomy, Hx Open Heart Surgery, Hx Pacemaker Review of Systems - Review of Systems Constitutional: No symptoms reported EENT: No symptoms reported Cardiovascular: No symptoms reported Respiratory: No symptoms reported Gastrointestinal: No symptoms reported Genitourinary: No symptoms reported Female Genitourinary: No symptoms reported Musculoskeletal: See HPI Skin: No symptoms reported Hematologic/Lymphatic: No symptoms reported Neurological/Psychological: No symptoms reported Physical Exam - Vital signs Vitals: Temp Pulse Resp BP Pulse Ox 98.0 F 79 18 162/80 H 95 03/25/16 19:48 03/25/16 19:48 03/25/16 19:48 03/25/16 19:48 03/25/16 19:48 Notes: Physical exam: GENERAL: 65-year-old female, alert and oriented 3 complaining of pain to the right shoulder and neck and back HEAD: Atraumatic, normocephalic. EYES: Pupils equal round and reactive to light, extraocular movements intact, sclera anicteric, conjunctiva are normal. ENT: TMs normal, nares patent, oropharynx clear without exudates. Moist mucous membranes. NECK: Normal range of motion, supple without lymphadenopathy or JVD. LUNGS: Breath sounds clear to auscultation bilaterally and equal. No wheezes rales or rhonchi. HEART: Regular rate and rhythm without murmurs, rubs or gallops. ABDOMEN: Soft, nontender, normoactive bowel sounds. No guarding, no rebound. No masses appreciated. BACK: Patient does have tenderness over the midthoracic spinous processes and lower lumbar spinous processes. There is right paraspinal tenderness as well. There is no crepitus or step offs. EXTREMITIES: Patient does have range of motion of the right shoulder, there is some pain to palpation over the humeral head,, no pitting or edema. No clubbing or cyanosis. NEUROLOGICAL: Cranial nerves II through XII grossly intact. Normal speech, normal gait. PSYCH: Normal mood, normal affect. SKIN: Warm, Dry, normal turgor, no rashes or lesions noted. Course - Re-evaluation Re-evalutation: 03/26/16 00:01 Patient has been taking ibuprofen regularly for the past month. I've explained to both her sons who are at the bedside and to the patient that the ibuprofen has been affecting her kidneys and she needs to cut down or even stop the ibuprofen. I am given a prescribe some oxycodone so she can avoid as much ibuprofen and she's been taking. She also complains of nausea and decreased by mouth intake. She states she takes her medicines before she eats in the morning and then is nauseated by them. I've advised her to take them after lunch. I also instructed that if she feels too weak and dizzy after her blood pressure medicines, then she could hold these until the nighttime and take them before bed. - Vital Signs Vital signs: Temp Pulse Resp BP Pulse Ox 98.0 F 79 18 162/80 H 95 03/25/16 19:48 03/25/16 19:48 03/25/16 19:48 03/25/16 19:48 03/25/16 19:48 - Laboratory Result Diagrams: 03/25/16 20:13 03/25/16 20:13 Laboratory results interpreted by me: 03/25/16 03/25/16 03/25/16 20:13 20:13 22:55 RBC 5.39 H MCHC 31.5 L RDW 14.3 H Monocytes % 13.8 H Chloride 109 H Carbon Dioxide 15 L BUN 21 H Creatinine 1.45 H Est GFR ( Amer) 44 L Est GFR (Non-Af Amer) 36 L Glucose 126 H Albumin 3.2 L Urine Protein >=500 H Urine Glucose (UA) 150 H Urine Ketones TRACE H - Diagnostic Test Radiology reviewed: Image reviewed, Reports reviewed - Head CT shows no bleed. T -spine, LS-spine, right shoulder x-rays are negative. Discharge - Discharge Clinical Impression: back pain status post fall Condition: Stable Disposition: HOME, SELF-CARE Instructions: Oral Narcotic Medication ([facility]) Additional Instructions: Recommendations: As we discussed, take the medicines after lunch instead of the morning. If you find that you're getting dizzy from the blood pressure medicine, you can take those to at night (this is the losartan and the amlodipine). Follow-up with your primary care doctor: Return to the emergency room for worsening pain, dizziness or any concerns he getting worse. Drink plenty fluids You're taking too much ibuprofen and it starting to affect her kidneys: I want you to cut back on it. Prescriptions: Oxycodone HCl 5 mg PO Q6HP PRN #14 tablet PRN Reason: Oxycodone HCl 5 mg PO Q6HP PRN #25 tablet PRN Reason:
[2016-03-25 23:11] LABS: APPEARANCE,URINE SLIGHTLY-CLOUDY; BILIRUBIN,URINE NEGATIVE (NEGATIVE); GLUCOSE, URINE 150 mg/dL (NEGATIVE); KETONES,URINE TRACE mg/dL (NEGATIVE); LEUKOCYTE ESTERASE,URINE NEGATIVE (NEGATIVE); NITRITE,URINE NEGATIVE (NEGATIVE); PROTEIN,URINE >=500 mg/dL (NEGATIVE); URINE SPECIFIC GRAVITY 1.017; UROBILINOGEN,URINE NEGATIVE mg/dL (<2.0)
[2016-03-26 00:28] VITALS: BP 171/69
== END 2016-03-26 00:26 | disposition home or self-care (01) ==
LOC: ER 19:39
DX: M54.9 Dorsalgia, unspecified (principal); M25.511 Pain in right shoulder; M54.2 Cervicalgia; W19.XXXA Unspecified fall, initial encounter; Y92.009 Unspecified place in unspecified non-institutional (private) residence as the place of occurrence of the external cause; I10 Essential (primary) hypertension; E11.9 Type 2 diabetes mellitus without complications; R11.0 Nausea; Z91.040 Latex allergy status; Z88.0 Allergy status to penicillin; Z88.6 Allergy status to analgesic agent; Z88.5 Allergy status to narcotic agent; Z79.1 Long term (current) use of non-steroidal anti-inflammatories (NSAID); Z79.899 Other long term (current) drug therapy
CPT/HCPCS: 99284; 36415; 85025; 80053; 81001; 72110; 73030; 72070; 70450; A9270 ×2

== ENCOUNTER 2016-03-28 15:19 | Inpatient (IN) | payer MEDICARE, OTHER ==
[2016-03-28] MEDS ORDERED: ONDANSETRON HCL INJ/PF 4 MG/2 ML SDV IV ONE ×2 (15:53→19:57)
[2016-03-28 16:40] LABS: ABSOLUTE LYMPHOCYTES (AUTO) 1.2 10^3/uL (0.5-4.7); ABSOLUTE MONOCYTES (AUTO) 0.7 10^3/uL (0.1-1.4); ABSOLUTE NEUT (AUTO) 8.9 10^3/uL (1.7-8.2); BASOPHILS % (AUTO) 0.5 % (0-2); HEMATOCRIT 44.4 % (36.0-47.0); HEMOGLOBIN 14.1 g/dL (12.0-15.5); HGB HCT DIFFERENCE -2.1; LYMPHOCYTES % (AUTO) 11.2 % (13-45); MEAN CORPUSCULAR HEMOGLOBIN 26.9 pg (27.0-33.4); MEAN CORPUSCULAR HGB CONC 31.7 g/dL (32.0-36.0); MEAN CORPUSCULAR VOLUME 85 fl (80-97); MONOCYTES % (AUTO) 6.7 % (3-13); RED BLOOD COUNT 5.22 10^6/uL (3.72-5.28); SEGMENTED NEUTROPHILS % (AUTO) 81.6 % (42-78); WHITE BLOOD COUNT 10.9 10^3/uL (4.0-10.5)
--- NOTE | 2016-03-28 17:57 | ER Document Report ---
ED General - General Chief Complaint: Nausea/Vomiting Stated Complaint: NAUSEA Time seen by provider: 17:45 Notes: Patient is a 65-year-old female presents emergency department for nausea, vomiting, and weakness for the past 3 days. Patient was recently hospitalized for acute CVA. Patient's son states that when she was discharged home, she was ambulatory without difficulties. She started having some nausea several days ago. She had a fall on the and was seen again in the emergency department for evaluation. She was prescribed oxycodone. Since states that for the past 3 days, she has had worsening nausea with vomiting. He states that she has generalized weakness and is unable to get out of bed. He states that she seems to be getting worse over the last several days. She's had difficulty keeping down any of her medications over the last several days as well. TRAVEL OUTSIDE OF THE [place] IN LAST 30 DAYS: No - Related Data Allergies/Adverse Reactions: latex [Latex] Allergy (Mild, Verified 03/28/16 16:38) RASH Penicillins Allergy (Mild, Verified 03/28/16 16:38) RASH, BREATHING DIFFICULTY acetaminophen [From Tylenol] Allergy (Verified 03/28/16 16:38) codeine Allergy (Verified 03/28/16 16:38) Past Medical History - Social History Smoking Status: Current Every Day Smoker Frequency of alcohol use: None Family History: None Patient has suicidal ideation: No Patient has homicidal ideation: No - Past Medical History Cardiac Medical History: Denies: Hx Heart Attack, Hx Hypertension Pulmonary Medical History: Denies: Hx Asthma Neurological Medical History: Denies: Hx Cerebrovascular Accident, Hx Seizures Endocrine Medical History: Reports: Hx Diabetes Mellitus Type 2 Renal/ Medical History: Denies: Hx Peritoneal Dialysis GI Medical History: Denies: Hx Hepatitis, Hx Hiatal Hernia, Hx Ulcer Infectious Medical History: Denies: Hx Hepatitis Past Surgical History: Reports: Hx Hysterectomy. Denies: Hx Mastectomy, Hx Open Heart Surgery, Hx Pacemaker Review of Systems - Review of Systems Constitutional: Fever - Subjective, Malaise EENT: denies: Nose congestion Cardiovascular: Dyspnea. denies: Chest pain Respiratory: Cough, Short of breath Gastrointestinal: Nausea, Vomiting, Poor appetite, Poor fluid intake. denies: Abdominal pain, Diarrhea Genitourinary: denies: Dysuria Skin: denies: Rash Neurological/Psychological: Weakness, Numbness. denies: Headaches -: Yes All other systems reviewed and negative Physical Exam - Vital signs Vitals: Temp Pulse Resp BP Pulse Ox 98.8 F 77 12 142/66 H 92 03/28/16 15:30 03/28/16 15:30 03/28/16 15:30 03/28/16 15:30 03/28/16 15:30 - Notes Notes: PHYSICAL EXAMINATION: GENERAL: Well-appearing, well-nourished and in no acute distress. HEAD: Atraumatic, normocephalic. EYES: Pupils equal, round, and reactive to light, sclera anicteric, conjunctiva are normal. ENT: dry mucous membranes. NECK: supple no nuchal rigidity LUNGS: Scattered wheezing bilaterally, no respiratory distress, on 2 L nasal cannula HEART: Regular rate and rhythm without murmurs ABDOMEN: Soft, nontender, normoactive bowel sounds. No guarding, no rebound. No masses appreciated. EXTREMITIES: Normal range of motion, no pitting or edema. No cyanosis. No calf tenderness to palpation. 2+ pulses. NEUROLOGICAL: Cranial nerves grossly intact. Slow speech. Right upper extremity strength 2/5, right lower extremity strength 3/5, left lower extremity strength 4/5, left upper extremity strength 4/5 decreased sensation to light touch on the right, oriented 3 PSYCH: Normal mood, normal affect. SKIN: Warm, Dry, no rashes or lesions noted. Course - Re-evaluation Re-evalutation: 03/28/16 20:59 Patient presents for vomiting and generalized weakness. She does appear to be dry on exam. She does have right sided weakness on exam. On review of patient' s previous notes, her right-sided weakness had resolved after her recent. Patient's laboratory evaluation does show elevated creatinine of 2 along with an elevated BUNs of 37. This is consistent with patient's vomiting and evidence of dehydration on exam. CT head did not show acute abnormality and chest x-ray did not show evidence of pulmonary edema or infiltrate. Case is discussed with Dr. Keith, hospitalist, who recommended a dose of Narcan as symptoms may be secondary to patient starting oxycodone. Patient was given a dose of oxycodone and had several more episodes of vomiting. She was given Zofran. Although she did appear more alert, her pulse ox did actually decreased to 87-88% on 2 L nasal cannula. She was given a DuoNeb and O2 was turned up to 3 L. Given her smoking history, suspect that she has underlying COPD. Given her evidence of dehydration with elevated creatinine and hypoxia, do think she wants hospitalization at this time. Patient and her sons verbalized understanding and are in agreement. Case was discussed with Dr. Keith who will evaluate patient in the ED. - Vital Signs Vital signs: Temp Pulse Resp BP Pulse Ox 98.8 F 77 18 162/73 H 93 03/28/16 15:30 03/28/16 15:30 03/28/16 19:01 03/28/16 18:00 03/28/16 19:01 - Laboratory Result Diagrams: 03/28/16 16:10 03/28/16 18:15 Laboratory results interpreted by me: 03/28/16 03/28/16 03/28/16 16:10 18:15 19:06 WBC 10.9 H MCH 26.9 L MCHC 31.7 L Seg Neutrophils % 81.6 H Lymphocytes % 11.2 L Absolute Neutrophils 8.9 H Carbon Dioxide 20 L BUN 37 H Creatinine 2.01 H Est GFR ( Amer) 30 L Est GFR (Non-Af Amer) 25 L Glucose 144 H Total Protein 5.7 L Albumin 3.0 L Urine Protein >=500 H Urine Glucose (UA) 50 H Urine Ketones TRACE H Urine Blood SMALL H - Diagnostic Test Radiology reviewed: Image reviewed, Reports reviewed - EKG Interpretation by Me EKG shows normal: Sinus rhythm, [place], QRS Complexes, ST-T Waves Rate: Normal Rhythm: NSR When compared to previous EKG there are: No significant change Discharge - Discharge Clinical Impression: Dehydration, Hypoxia, Right sided weakness Condition: Stable Disposition: ADMITTED OBSERVATION Admitting Provider: Hospitalist Unit Admitted: Medical Floor
[2016-03-28] MEDS ORDERED: NORMAL SALINE 1000 ML 1,000 ML IV ONE (17:58)
[2016-03-28 18:18] LABS: ADD ON TESTING BLD IN LAB ACKNOWLEDGE
[2016-03-28] MEDS ORDERED: ONDANSETRON HCL INJ/PF 4 MG/2 ML SDV ONE (18:46)
[2016-03-28 18:50] LABS: MAGNESIUM 2.2 mg/dL (1.6-2.3)
[2016-03-28 18:51] LABS: ALANINE AMINOTRANSFERASE 23 U/L (9-52); ALKALINE PHOSPHATASE 110 U/L (38-126); ANION GAP 15 (5-19); ASPARTATE AMINO TRANSFERASE 30 U/L (14-36); BILIRUBIN,TOTAL 0.5 mg/dL (0.2-1.3); BLOOD UREA NITROGEN 37 mg/dL (7-20); CALCIUM 8.9 mg/dL (8.4-10.2); CARBON DIOXIDE 20 mmol/L (22-30); CHLORIDE 107 mmol/L (98-107); CREATININE RESULT 2.01 mg/dL (0.52-1.25); GLUCOSE 144 mg/dL (75-110); POTASSIUM 4.2 mmol/L (3.6-5.0); SODIUM 142.1 mmol/L (137-145); TOTAL PROTEIN 5.7 g/dL (6.3-8.2)
[2016-03-28 19:02] LABS: CREATINE KINASE MB 0.69 ng/mL (<4.55); TROPONIN I 0.03 ng/mL
[2016-03-28 19:37] LABS: APPEARANCE,URINE CLOUDY; BILIRUBIN,URINE NEGATIVE (NEGATIVE); GLUCOSE, URINE 50 mg/dL (NEGATIVE); KETONES,URINE TRACE mg/dL (NEGATIVE); LEUKOCYTE ESTERASE,URINE NEGATIVE (NEGATIVE); NITRITE,URINE NEGATIVE (NEGATIVE); PROTEIN,URINE >=500 mg/dL (NEGATIVE); URINE SPECIFIC GRAVITY 1.022; UROBILINOGEN,URINE NEGATIVE mg/dL (<2.0)
[2016-03-28] MEDS ORDERED: NALOXONE HCL INJ/PF 0.4 MG/1 ML SDV IV ONE (19:46)
[2016-03-28] MEDS ORDERED: IPRATROPIUM/ALBUTEROL 0.5-2.5 MG/3 ML AMPUL NEB ONE (20:08)
[2016-03-28] MEDS ORDERED: DEXTROSE 50%-WATER 25 GM/50 ML DISP.SYRIN IV PRN ×2 (20:53)
[2016-03-28] MEDS ORDERED: GLUCAGON,HUMAN RECOMB 1 MG INJ IM PRN (20:53)
[2016-03-28] MEDS ORDERED: DEXTROSE 40% GEL 15 GM TUBE PO PRN ×2 (20:53)
[2016-03-28] MEDS ORDERED: ONDANSETRON HCL INJ/PF 4 MG/2 ML SDV IV PRN (21:25)
[2016-03-28] MEDS ORDERED: MAGNESIUM HYDROXIDE SUSP 30 ML UDCUP PO PRN (21:25)
[2016-03-28] MEDS ORDERED: NORMAL SALINE 1000 ML 1,000 ML IV SCH (21:30)
--- NOTE | 2016-03-28 21:37 | EKG REPORT ---
SEVERITY:- ABNORMAL ECG - SINUS RHYTHM MINIMAL ST DEPRESSION, INFEROLATERAL LEADS : Confirmed by: Baldomero Hollis MD 28-Mar-2016 21:37:15
[2016-03-28] MEDS: AMLODIPINE BESYLATE 10 MG TABLET PO SCH (22:00)
[2016-03-28] MEDS ORDERED: INSULIN GLARGINE,HUM.REC.ANLOG 300 UNIT/3 ML INSULN.PEN SUBCUT SCH (22:00)
[2016-03-28] MEDS ORDERED: (PENDING PHARMACY ID) (Rosuvastatin Calcium [Crestor 20 Mg Tablet] 20 MG) PO SCH (22:00)
[2016-03-28] MEDS ORDERED: LEVOFLOXACIN 750 MG/D5W RTU 750 MG/150 ML RTUPB IV ONE (22:00)
[2016-03-28] MEDS ORDERED: METOCLOPRAMIDE HCL INJ/PF 10 MG/2 ML SDV IV ONE (22:00)
[2016-03-29] MEDS: ATORVASTATIN CALCIUM 40 MG TABLET PO SCH ×2 (00:21→23:47)
[2016-03-29] MEDS: MIRTAZAPINE 15 MG TABLET PO SCH ×2 (00:21→21:42)
[2016-03-29] MEDS: HEPARIN SOD (PORCINE) 5,000 UNIT/ML 1 ML SYRINGE SUBCUT SCH ×4 (01:03→21:41)
[2016-03-29] MEDS ORDERED: INSULIN GLARGINE,HUM.REC.ANLOG 300 UNIT/3 ML INSULN.PEN SUBCUT ONE ×2 (02:07→10:45)
[2016-03-29] MEDS: METOCLOPRAMIDE HCL INJ/PF 10 MG/2 ML SDV IV SCH ×4 (02:25→21:42)
[2016-03-29] MEDS: IPRATROPIUM/ALBUTEROL 0.5-2.5 MG/3 ML AMPUL NEB SCH ×4 (02:25→19:59)
[2016-03-29] MEDS: HYDRALAZINE HCL INJ/PF 20 MG/1 ML SDV IV PRN (02:50)
[2016-03-29 04:40] LABS: ABSOLUTE MONOCYTES (AUTO) 0.9 10^3/uL (0.1-1.4); ABSOLUTE NEUT (AUTO) 7.4 10^3/uL (1.7-8.2); BASOPHILS % (AUTO) 0.2 % (0-2); HEMATOCRIT 41.1 % (36.0-47.0); HEMOGLOBIN 13.1 g/dL (12.0-15.5); HGB HCT DIFFERENCE -1.8; LYMPHOCYTES % (AUTO) 19.1 % (13-45); MEAN CORPUSCULAR HGB CONC 31.9 g/dL (32.0-36.0); MEAN CORPUSCULAR VOLUME 85 fl (80-97); MONOCYTES % (AUTO) 9.1 % (3-13); RED BLOOD COUNT 4.85 10^6/uL (3.72-5.28); RED CELL DISTRIBUTION WIDTH 14.2 % (11.5-14.0); SEGMENTED NEUTROPHILS % (AUTO) 71.6 % (42-78); WHITE BLOOD COUNT 10.3 10^3/uL (4.0-10.5)
[2016-03-29 04:55] LABS: ANION GAP 11 (5-19); BLOOD UREA NITROGEN 38 mg/dL (7-20); CALCIUM 8.5 mg/dL (8.4-10.2); CARBON DIOXIDE 21 mmol/L (22-30); CHLORIDE 111 mmol/L (98-107); CREATININE RESULT 1.73 mg/dL (0.52-1.25); GLUCOSE 77 mg/dL (75-110); POTASSIUM 3.6 mmol/L (3.6-5.0); SODIUM 142.6 mmol/L (137-145)
--- NOTE | 2016-03-29 05:17 | PDOC H&P ---
History of Present Illness Admission Date/PCP: 03/28/16 21:44 Patient complains of: Nausea and vomiting 3 days History of Present Illness: GEORGE LAUGHLIN is a 65 year old female with a past medical history of depression and grief as she is recently , recent TIA with right-sided weakness insulin dependent diabetes, COPD with ongoing tobacco dependence, hypertension dyslipidemia and recent fall resulting in pain to the right shoulder for which she had evaluated 3 days ago in the emergency room was given oxycodone for pain. She has subsequently had severe constipation and inability to tolerate by mouth resulting in vomiting of gastric content. In the emergency room she is found to have dehydration, constipation, acute renal failure with a creatinine of 2 and is referred to the hospitalist for admission. Discussion with family members believe her nausea vomiting predate Percocet use and I'm concerned for gastroparesis given long-term uncontrolled diabetes. Past Medical History Cardiac Medical History: Reports: Hypertension Denies: Atrial Fibrillation, Congestive Heart Failure, Myocardial Infarction , Peripheral Vascular Disease, Pulmonary Embolism Pulmonary Medical History: Reports: Chronic Obstructive Pulmonary Disease (COPD) Denies: Asthma Neurological Medical History: Denies: Seizures Endocrine Medical History: Reports: Diabetes Mellitus Type 2 GI Medical History: Denies: Hepatitis, Hiatal Hernia Psychiatric Medical History: Reports: Depression, Tobacco Dependency Hematology: Denies: Anemia, Sickle Cell Disease Past Surgical History Past Surgical History: Reports: Hysterectomy Denies: Amputation, Mastectomy, Pacemaker Social History Information Source: Patient, Relative Lives with: Family Smoking Status: Current Every Day Smoker Frequency of Alcohol Use: None Hx Recreational Drug Use: No Drugs: None Hx Prescription Drug Abuse: No - Advance Directive Resuscitation Status: Full Code Family History Family History: COPD Parental Family History Reviewed: Yes Children Family History Reviewed: Yes Sibling(s) Family History Reviewed.: Yes Medication/Allergy Home Medications: Cholecalciferol (Vitamin D3) [Vitamin D3] 400 mg PO DAILY 03/11/16 Insulin Aspart [Novolog Insulin (Aspart) 100 unit/mL] 0 units SQ ASDIR PRN 03/11 Insulin Glargine,Hum.rec.anlog [Lantus] 40 units SQ BID 03/11/16 Liraglutide [Victoza 2-Miko] 1.8 mg SQ DAILY 03/11/16 Amlodipine Besylate [Norvasc 10 mg Tablet] 10 mg PO DAILY #30 tablet 03/16/16 Clopidogrel Bisulfate [Plavix 75 mg Tablet] 75 mg PO DAILY #30 tablet 03/16/16 Losartan Potassium [Cozaar 50 mg Tablet] 50 mg PO DAILY #30 tablet 03/16/16 Rosuvastatin Calcium [Crestor 20 mg Tablet] 20 mg PO QHS #30 tablet 03/16/16 Oxycodone HCl 5 mg PO Q6HP PRN #14 tablet 03/25/16 Oxycodone HCl 5 mg PO Q6HP PRN #25 tablet 03/25/16 Allergies/Adverse Reactions: latex [Latex] Allergy (Mild, Verified 03/28/16 16:38) RASH Penicillins Allergy (Mild, Verified 03/28/16 16:38) RASH, BREATHING DIFFICULTY acetaminophen [From Tylenol] Allergy (Verified 03/28/16 16:38) codeine Allergy (Verified 03/28/16 16:38) Review of Systems Constitutional: PRESENT: anorexia, fatigue, weakness. ABSENT: fever(s), headache(s), night sweats Eyes: ABSENT: visual disturbances Ears: ABSENT: hearing changes Cardiovascular: ABSENT: chest pain, dyspnea on exertion, edema, orthropnea, palpitations Respiratory: PRESENT: cough, dyspnea, sputum Gastrointestinal: PRESENT: abdominal pain, bloating, constipation, heartburn, nausea, vomiting. ABSENT: diarrhea, hematemesis, hematochezia, melena Genitourinary: ABSENT: dysuria, hematuria Musculoskeletal: ABSENT: joint swelling Integumentary: ABSENT: rash, wounds Neurological: ABSENT: abnormal gait, abnormal speech, confusion, dizziness, focal weakness, syncope Psychiatric: PRESENT: anxiety, depression. ABSENT: homidical ideation, suicidal ideation Endocrine: ABSENT: cold intolerance, heat intolerance, polydipsia, polyuria Hematologic/Lymphatic: ABSENT: easy bleeding, easy bruising Physical Exam Vital Signs: Temp Pulse Resp BP Pulse Ox 98.4 F 79 21 H 166/53 H 92 03/29/16 03:15 03/29/16 04:00 03/29/16 04:00 03/29/16 04:00 03/29/16 04:00 Intake & Output 03/27/16 03/28/16 03/29/16 11:59 11:59 11:59 Weight 74 kg General appearance: PRESENT: cooperative, disheveled, mild distress, well- developed, well-nourished Head exam: PRESENT: atraumatic, normocephalic Eye exam: PRESENT: conjunctiva pink, EOMI, PERRLA. ABSENT: scleral icterus Ear exam: PRESENT: normal external ear exam Mouth exam: PRESENT: dry mucosa, tongue midline Neck exam: ABSENT: carotid bruit, JVD, lymphadenopathy, thyromegaly Respiratory exam: PRESENT: accessory muscle use, crackles, prolonged expiratory phas, rales, symmetrical, tachypnea, wheezes. ABSENT: rhonchi Cardiovascular exam: PRESENT: RRR. ABSENT: diastolic murmur, gallop, rubs, systolic murmur Pulses: PRESENT: normal dorsalis pedis pul Vascular exam: PRESENT: normal capillary refill GI/Abdominal exam: PRESENT: normal bowel sounds, soft. ABSENT: distended, guarding, mass, organolmegaly, rebound, tenderness Rectal exam: PRESENT: deferred Extremities exam: PRESENT: full ROM. ABSENT: calf tenderness, clubbing, pedal edema Neurological exam: PRESENT: alert, awake, oriented to person, oriented to place , oriented to time, oriented to situation, CN II-XII grossly intact. ABSENT: motor sensory deficit Psychiatric exam: PRESENT: appropriate affect, normal mood. ABSENT: homicidal ideation, suicidal ideation Skin exam: PRESENT: dry, intact, warm. ABSENT: cyanosis, rash Results Laboratory Results: 03/29/16 04:04 03/29/16 04:04 03/29/16 03/29/16 04:04 04:04 WBC 10.3 RBC 4.85 Hgb 13.1 Hct 41.1 MCV 85 MCH 27.0 MCHC 31.9 L RDW 14.2 H Plt Count 221 Seg Neutrophils % 71.6 Lymphocytes % 19.1 Monocytes % 9.1 Eosinophils % 0.0 Basophils % 0.2 Absolute Neutrophils 7.4 Absolute Lymphocytes 2.0 Absolute Monocytes 0.9 Absolute Eosinophils 0.0 Absolute Basophils 0.0 Sodium 142.6 Potassium 3.6 Chloride 111 H Carbon Dioxide 21 L Anion Gap 11 BUN 38 H Creatinine 1.73 H Est GFR ( Amer) 36 L Est GFR (Non-Af Amer) 29 L Glucose 77 Calcium 8.5 Impressions: Chest X-Ray 03/28/16 17:55 IMPRESSION: NO ACUTE RADIOGRAPHIC FINDING IN THE CHEST. Head CT 03/28/16 17:56 IMPRESSION: Stable CT appearance of the brain, again demonstrating chronic microvascular ischemic changes. No evidence of acute or subacute ischemic event. Assessment & Plan - Diagnosis (2) Acute renal failure Is this a current diagnosis for this admission?: YesPlan: Prerenal acute renal failure with dehydration avoid nephrotoxic meds and doses IV fluid challenge and reevaluation of chemistry (3) Acute bronchitis Is this a current diagnosis for this admission?: YesPlan: Tobacco cessation albuterol Atrovent empiric antibiotic's incentive spirometry and reevaluation (4) COPD exacerbation Is this a current diagnosis for this admission?: YesPlan: Please see #2 (5) Gastroparesis Is this a current diagnosis for this admission?: YesPlan: Long-standing uncontrolled diabetes with nausea and vomiting strongly suspect gastroparesis will trial Reglan IV every before meals (6) Generalized weakness Is this a current diagnosis for this admission?: YesPlan: Clearly physically debilitated and depressed unable to evaluate as she has intermittent weakness and uncooperative at this time will obtain physical therapy consultation (7) Depression Is this a current diagnosis for this admission?: YesPlan: Trial of Remeron consider Risperdal - Time Time Spent: 50 to 70 Minutes
[2016-03-29] MEDS ORDERED: OXYCODONE HCL IR 5 MG TABLET PO PRN (10:05)
[2016-03-29] MEDS: CLOPIDOGREL BISULFATE 75 MG TABLET PO SCH (10:22)
[2016-03-29] MEDS: DOCUSATE SODIUM 100 MG CAPSULE PO SCH ×2 (10:22→17:29)
[2016-03-29] MEDS: LOSARTAN POTASSIUM 50 MG TABLET PO SCH (10:23)
[2016-03-29] MEDS: AMLODIPINE BESYLATE 10 MG TABLET PO SCH (10:24)
[2016-03-29] MEDS ORDERED: LEVOFLOXACIN 750 MG/D5W RTU 750 MG/150 ML RTUPB IV ONE (11:30)
[2016-03-29] MEDS ORDERED: METHYLPREDNISOLONE INJ 40 MG/1 ML SDV ONE (13:26)
[2016-03-29] MEDS: METHYLPREDNISOLONE INJ 40 MG/1 ML SDV IV SCH ×2 (13:40→21:42)
[2016-03-29] MEDS: NORMAL SALINE 1000 ML 1,000 ML IV PRN (13:41)
[2016-03-29] MEDS ORDERED: NICOTINE 21 MG/24 HR PATCH.TD24 TD PRN (14:46)
[2016-03-29] MEDS: ALPRAZOLAM 0.5 MG TABLET PO PRN (17:29)
[2016-03-29] MEDS: INSULIN LISPRO 100 UNIT/ML 3 ML VIAL SUBCUT PRN (21:42)
[2016-03-29] MEDS: INSULIN GLARGINE,HUM.REC.ANLOG 300 UNIT/3 ML INSULN.PEN SUBCUT SCH (21:42)
[2016-03-29] MEDS ORDERED: INSULIN GLARGINE,HUM.REC.ANLOG 300 UNIT/3 ML INSULN.PEN SUBCUT SCH (22:00)
[2016-03-29] MEDS ORDERED: LEVOFLOXACIN 750 MG/D5W RTU 750 MG/150 ML RTUPB IV SCH (22:00)
[2016-03-30] MEDS: IPRATROPIUM/ALBUTEROL 0.5-2.5 MG/3 ML AMPUL NEB SCH ×4 (02:03→20:09)
[2016-03-30] MEDS: METOCLOPRAMIDE HCL INJ/PF 10 MG/2 ML SDV IV SCH ×4 (02:59→22:22)
[2016-03-30] MEDS: METHYLPREDNISOLONE INJ 40 MG/1 ML SDV IV SCH ×3 (06:47→22:22)
[2016-03-30] MEDS: HEPARIN SOD (PORCINE) 5,000 UNIT/ML 1 ML SYRINGE SUBCUT SCH ×3 (06:47→22:22)
--- NOTE | 2016-03-30 07:36 | PDOC PROGRESS REPORT ---
Subjective Progress Note for:: 03/29/16 Subjective:: Patient seen on morning rounds. She is sleeping in bed. She awakens easily. She denies any further nausea or vomiting. She denies any diarrhea. She has a congested cough. She denies dyspnea, chest pain or dizziness. She has refused some medications and breathing treatments. She has a flat affect. She denies any other complaints. Physical Exam Vital Signs: Temp Pulse Resp BP Pulse Ox 97.6 F 64 18 148/66 H 95 03/29/16 20:56 03/30/16 02:03 03/30/16 02:03 03/30/16 00:03 03/30/16 02:03 Intake & Output 03/29/16 03/30/16 03/31/16 06:59 06:59 06:59 Intake Total 1060 1003 Output Total 0 0 Balance 1060 1003 Weight 74 kg 74 kg General appearance: PRESENT: no acute distress, well-developed, well-nourished Head exam: PRESENT: atraumatic, normocephalic Eye exam: PRESENT: conjunctiva pink, EOMI, PERRLA. ABSENT: scleral icterus Ear exam: PRESENT: normal external ear exam Mouth exam: PRESENT: moist, tongue midline Neck exam: ABSENT: carotid bruit, JVD, lymphadenopathy, thyromegaly Respiratory exam: PRESENT: rhonchi, symmetrical, unlabored Cardiovascular exam: PRESENT: RRR. ABSENT: diastolic murmur, rubs, systolic murmur Pulses: PRESENT: normal dorsalis pedis pul Vascular exam: PRESENT: normal capillary refill GI/Abdominal exam: PRESENT: normal bowel sounds, soft. ABSENT: distended, guarding, mass, organolmegaly, rebound, tenderness Rectal exam: PRESENT: deferred Extremities exam: PRESENT: full ROM. ABSENT: calf tenderness, clubbing, pedal edema Neurological exam: PRESENT: alert, awake, oriented to person, oriented to place , oriented to time, oriented to situation, CN II-XII grossly intact. ABSENT: motor sensory deficit Psychiatric exam: PRESENT: appropriate affect, normal mood. ABSENT: homicidal ideation, suicidal ideation Skin exam: PRESENT: dry, intact, warm. ABSENT: cyanosis, rash Results Laboratory Results: 03/29/16 04:04 03/29/16 04:04 Impressions: Chest X-Ray 03/28/16 17:55 IMPRESSION: NO ACUTE RADIOGRAPHIC FINDING IN THE CHEST. Head CT 03/28/16 17:56 IMPRESSION: Stable CT appearance of the brain, again demonstrating chronic microvascular ischemic changes. No evidence of acute or subacute ischemic event. Assessment & Plan - Diagnosis (1) COPD exacerbation Is this a current diagnosis for this admission?: YesPlan: Continue nebulizer treatmens, antibiotics. Cultures pending (2) Acute renal failure Qualifiers: Acute renal failure type: unspecified Qualified Code(s): N17.9 - Acute kidney failure, unspecified Is this a current diagnosis for this admission?: YesPlan: Appears to be prerenal from volume depletion from vomiting and diarrhea. Rehydrating with fluids (3) Dehydration Is this a current diagnosis for this admission?: YesPlan: Continue rehydration and monitor (4) Generalized weakness Is this a current diagnosis for this admission?: YesPlan: Secondary to dehydration and COPD exacerbation (5) Diabetes mellitus Qualifiers: Diabetes mellitus complication status: with unspecified complications Diabetes mellitus buttermilk drier operator insulin use: with senior living use Is this a current diagnosis for this admission?: YesPlan: Sliding scale insulin plus 1/2 dose of lantus (6) Hyperlipidemia Qualifiers: Hyperlipidemia type: unspecified Qualified Code(s): E78.5 - Hyperlipidemia, unspecified Is this a current diagnosis for this admission?: YesPlan: Continue statin (7) Accelerated hypertension Is this a current diagnosis for this admission?: YesPlan: Continue current antihypertensives (8) Hypoxia Is this a current diagnosis for this admission?: YesPlan: Continue oxygen, breathing treatments and antibiotics (9) Tobacco abuse Is this a current diagnosis for this admission?: YesPlan: Counseled and is contemplating - Time Time Spent with patient: 25-34 minutes Critical Time spent with patient: 15-24 minutes Smoking Cessation Education: 3 to 10 minutes Anticipated discharge: Home
[2016-03-30 07:52] LABS: ABSOLUTE LYMPHOCYTES (AUTO) 0.8 10^3/uL (0.5-4.7); ABSOLUTE MONOCYTES (AUTO) 0.4 10^3/uL (0.1-1.4); ABSOLUTE NEUT (AUTO) 11.3 10^3/uL (1.7-8.2); HEMATOCRIT 38.8 % (36.0-47.0); HEMOGLOBIN 12.3 g/dL (12.0-15.5); HGB HCT DIFFERENCE -1.9; LYMPHOCYTES % (AUTO) 6.4 % (13-45); MEAN CORPUSCULAR HEMOGLOBIN 26.7 pg (27.0-33.4); MEAN CORPUSCULAR HGB CONC 31.6 g/dL (32.0-36.0); MEAN CORPUSCULAR VOLUME 85 fl (80-97); MONOCYTES % (AUTO) 2.8 % (3-13); RED BLOOD COUNT 4.59 10^6/uL (3.72-5.28); RED CELL DISTRIBUTION WIDTH 14.1 % (11.5-14.0); SEGMENTED NEUTROPHILS % (AUTO) 90.8 % (42-78); WHITE BLOOD COUNT 12.5 10^3/uL (4.0-10.5)
[2016-03-30 08:10] LABS: ANION GAP 11 (5-19); BLOOD UREA NITROGEN 36 mg/dL (7-20); CALCIUM 9.5 mg/dL (8.4-10.2); CARBON DIOXIDE 21 mmol/L (22-30); CHLORIDE 110 mmol/L (98-107); CREATININE RESULT 1.56 mg/dL (0.52-1.25); GLUCOSE 188 mg/dL (75-110); POTASSIUM 4.2 mmol/L (3.6-5.0); SODIUM 141.9 mmol/L (137-145)
[2016-03-30] MEDS: INSULIN GLARGINE,HUM.REC.ANLOG 300 UNIT/3 ML INSULN.PEN SUBCUT SCH ×2 (10:56→22:25)
[2016-03-30] MEDS: CLOPIDOGREL BISULFATE 75 MG TABLET PO SCH (11:05)
[2016-03-30] MEDS: LOSARTAN POTASSIUM 50 MG TABLET PO SCH (11:05)
[2016-03-30] MEDS: DOCUSATE SODIUM 100 MG CAPSULE PO SCH ×2 (11:06→17:39)
[2016-03-30] MEDS: CHOLECALCIFEROL (D3) 400 UNIT TABLET PO SCH (11:06)
[2016-03-30] MEDS: AMLODIPINE BESYLATE 10 MG TABLET PO SCH (11:06)
--- NOTE | 2016-03-30 12:22 | Physician Advisory Note ---
Physician Advisor ProgressNote .: Pursuant to the plan for [facility], I have reviewed the medical record for this patient. Physician Advisor Statement: Possible documentation opportunities if attending agrees: 1. "Acute Kidney Injury likely due to , w/baseline Cr 1.45 on 03/25/16" [ ATN, Acute cortical necrosis, medullary necrosis, ... are what coders are needing] 2. "COPD exac with suspected Acute Bronchitis & Acute Hypoxemic Resp Failure evidenced by (+) lethargy, accessory muscle use, & O2 sat 85% RA initially in ED " ['Ac Bronchitis' as per H&P - this dx explains why giving abx. O2/lethargy info in initial triage notes, acc muscle use per H&P; subsequent hypoxemia findings as well. ] 3. "suspected diabetic gastroparesis" [as per H&P] 4. Does pt still have residual "Rt-sided hemiparesis", or not? 5. Please document whether or not you feel pt has/has had "hypertensive urgency " or "hypertensive emergency". "Accelerated HTN" & "malignant HTN" were old terms that were the only ones recognized by the previous ICD-10 coding system as being something other than benign HTN, so documentation had to include them in order to get credit for the appropriate severity of illness. However, as of 12/07/15, multiple codes were changed, requiring changes in how we document. Now: "Accelerated HTN" or malignant HTN is taken to mean the same thing as "benign HTN". If pt has dHI151+ &/or eME399+ , without associated sx -> "HTNive urgency" is now the accepted term. If pt has bFI609+ &/or kAI445+ , & sx of possible organ damage, such as FERNANDEZ, CP, SOB, acute exac of CHF, ... -> "Hypertensive emergency" is now the accepted term, & we need documentation of what s/s were caused by the malig HTN. Status: Pt w/COPD/tobacco abuse/dependence (no h/o any previous need for O2 reported), recent TIA w/Rt hemiparesis, N/V issues since prior to use of Percocet, then recent Percocet use for shoulder pain, presented with N/V x3 days, constipation , anorexia, fatigue, cough, SOB, abd pain, RR21. She was initially lethargic w/ O2 sat 85% RA that increased to 92% on 2L O2. After 1MN of hospital care, pt's Cr still significantly above baseline, & pt continuing to have significant hypoxemia at times even on O2, with labored breathing documented 10AM 03/29/16. H&P, done 03/29 AM, documented continued "mild distress", "+)accessory muscle use, rales, wheezes, tachypnea, prolonged expir phase". In PM 03/29/16, sat as low as 83% at 16:08 (with O2 off) - sat increased to only 91% on 5L after O2 put back on, per nsg note. Mult other VS documentation of hypoxemia continued 03/29 PM. Pt still needing IVF rehydration & aggressive tx & monitoring of respiratory decompensation. Tx in inpatient hospital setting medically reasonable & necessary to protect pt's health, safety, & medical condition. Appropriate for Inpt status. Thanks for your help (& patience) with documentation accuracy/specificity improvement! Michell Lofton MD [facility] Physician Advisor, Fellow of Hospital Medicine
[2016-03-30] MEDS: INSULIN LISPRO 100 UNIT/ML 3 ML VIAL SUBCUT PRN ×3 (13:06→22:22)
[2016-03-30] MEDS: NORMAL SALINE 1000 ML 1,000 ML IV PRN ×2 (13:06→22:33)
--- NOTE | 2016-03-30 13:21 | PDOC PROGRESS REPORT ---
Subjective Progress Note for:: 03/30/16 Subjective:: Patient seen on morning rounds. She is resting in bed. She continues to have congested cough but it has improved since yesterday. She denies any further nausea or vomiting. She denies any diarrhea. She denies dyspnea, chest pain or dizziness. She has refused some medications and breathing treatments. Her family reports that is normal behavior for her since she had a stroke 5 years ago. She has a flat affect. She denies any other complaints. Physical Exam Vital Signs: Temp Pulse Resp BP Pulse Ox 97.4 F 67 16 190/62 H 97 03/30/16 07:36 03/30/16 07:40 03/30/16 07:40 03/30/16 07:36 03/30/16 07:40 Intake & Output 03/29/16 03/30/16 03/31/16 06:59 06:59 06:59 Intake Total 1060 2203 Output Total 0 0 Balance 1060 2203 Weight 74 kg 74 kg General appearance: PRESENT: no acute distress, well-developed, well-nourished Head exam: PRESENT: atraumatic, normocephalic Eye exam: PRESENT: conjunctiva pink, EOMI, PERRLA. ABSENT: scleral icterus Ear exam: PRESENT: normal external ear exam Mouth exam: PRESENT: moist, tongue midline Neck exam: ABSENT: carotid bruit, JVD, lymphadenopathy, thyromegaly Respiratory exam: PRESENT: clear to auscultation nicole. ABSENT: rales, rhonchi, wheezes Cardiovascular exam: PRESENT: RRR. ABSENT: diastolic murmur, rubs, systolic murmur Pulses: PRESENT: normal dorsalis pedis pul Vascular exam: PRESENT: normal capillary refill GI/Abdominal exam: PRESENT: normal bowel sounds, soft. ABSENT: distended, guarding, mass, organolmegaly, rebound, tenderness Rectal exam: PRESENT: deferred Extremities exam: PRESENT: full ROM. ABSENT: calf tenderness, clubbing, pedal edema Musculoskeletal exam: PRESENT: ambulatory, full ROM, tenderness Neurological exam: PRESENT: alert, awake, oriented to person, oriented to place , oriented to time, oriented to situation, CN II-XII grossly intact. ABSENT: motor sensory deficit Psychiatric exam: PRESENT: flat affect Skin exam: PRESENT: dry, intact, warm. ABSENT: cyanosis, rash Results Laboratory Results: 03/30/16 07:32 03/30/16 07:32 03/30/16 03/30/16 07:32 07:32 WBC 12.5 H RBC 4.59 Hgb 12.3 Hct 38.8 MCV 85 MCH 26.7 L MCHC 31.6 L RDW 14.1 H Plt Count 241 Seg Neutrophils % 90.8 H Lymphocytes % 6.4 L Monocytes % 2.8 L Eosinophils % 0.0 Basophils % 0.0 Absolute Neutrophils 11.3 H Absolute Lymphocytes 0.8 Absolute Monocytes 0.4 Absolute Eosinophils 0.0 Absolute Basophils 0.0 Sodium 141.9 Potassium 4.2 Chloride 110 H Carbon Dioxide 21 L Anion Gap 11 BUN 36 H Creatinine 1.56 H Est GFR ( Amer) 40 L Est GFR (Non-Af Amer) 33 L Glucose 188 H Calcium 9.5 Impressions: Chest X-Ray 03/28/16 17:55 IMPRESSION: NO ACUTE RADIOGRAPHIC FINDING IN THE CHEST. Head CT 03/28/16 17:56 IMPRESSION: Stable CT appearance of the brain, again demonstrating chronic microvascular ischemic changes. No evidence of acute or subacute ischemic event. Assessment & Plan - Diagnosis (1) Acute renal failure Qualifiers: Acute renal failure type: unspecified Qualified Code(s): N17.9 - Acute kidney failure, unspecified Is this a current diagnosis for this admission?: YesPlan: Patient had a cr of 1.45 during hospitalization earlier this month. Acute kidney injury appears to be prerenal from volume depletion from vomiting and diarrhea. Rehydrating with fluids. BUN/CR now trending towards baseline. Patient was encouraged to increase po intake now that nausea and vomiting has resolved. (2) Dehydration Is this a current diagnosis for this admission?: YesPlan: Continue rehydration and monitor electrolytes. Nausea and vomiting has resolved. (3) Generalized weakness Is this a current diagnosis for this admission?: YesPlan: Secondary to dehydration and COPD exacerbation (4) Diabetes mellitus Qualifiers: Diabetes mellitus complication status: with unspecified complications Diabetes mellitus terminal gauger insulin use: with terminal gauger use Is this a current diagnosis for this admission?: YesPlan: Sliding scale insulin plus regular dose of lantus (5) Hyperlipidemia Qualifiers: Hyperlipidemia type: unspecified Qualified Code(s): E78.5 - Hyperlipidemia, unspecified Is this a current diagnosis for this admission?: Yes (6) Hypoxia Is this a current diagnosis for this admission?: YesPlan: Continue oxygen, breathing treatments and antibiotics (7) Tobacco abuse Is this a current diagnosis for this admission?: Yes (8) COPD (chronic obstructive pulmonary disease) with acute bronchitis Is this a current diagnosis for this admission?: YesPlan: Patient had evidence of acute hypoxemic respiratory failure with SPO2 of 85% on room air. She was observed to be lethargic with use of accessory muscles to breath. Oxygenation improving with antibiotic therapy, nebulizer treatments (9) Asymptomatic hypertensive urgency Is this a current diagnosis for this admission?: YesPlan: Patient had not been taking her home blood pressure medications for 3 days prior to arrival here due to nausea and vomiting. Her nausea and vomiting has resolved . Her blood pressure control is improving. Increased losartan to bid now that creatinine is improving - Time Time Spent with patient: 25-34 minutes Critical Time spent with patient: 15-24 minutes Smoking Cessation Education: 3 to 10 minutes Medications reviewed and adjusted accordingly: Yes Anticipated discharge: Home with Homehealth
[2016-03-30] MEDS ORDERED: LOSARTAN POTASSIUM 50 MG TABLET PO ONE (14:00)
[2016-03-30] MEDS ORDERED: LOSARTAN POTASSIUM 50 MG TABLET PO SCH (22:00)
[2016-03-30] MEDS: MIRTAZAPINE 15 MG TABLET PO SCH (22:22)
[2016-03-30] MEDS: ATORVASTATIN CALCIUM 40 MG TABLET PO SCH (22:22)
[2016-03-31] MEDS: IPRATROPIUM/ALBUTEROL 0.5-2.5 MG/3 ML AMPUL NEB SCH ×4 (02:08→22:16)
[2016-03-31] MEDS: METOCLOPRAMIDE HCL INJ/PF 10 MG/2 ML SDV IV SCH ×3 (02:34→16:14)
[2016-03-31] MEDS: METHYLPREDNISOLONE INJ 40 MG/1 ML SDV IV SCH ×2 (06:51→16:14)
[2016-03-31] MEDS: HEPARIN SOD (PORCINE) 5,000 UNIT/ML 1 ML SYRINGE SUBCUT SCH ×2 (06:51→16:13)
[2016-03-31 07:09] LABS: ABSOLUTE LYMPHOCYTES (AUTO) 0.7 10^3/uL (0.5-4.7); ABSOLUTE MONOCYTES (AUTO) 0.5 10^3/uL (0.1-1.4); ABSOLUTE NEUT (AUTO) 12.7 10^3/uL (1.7-8.2); BASOPHILS % (AUTO) 0.2 % (0-2); HEMATOCRIT 40.7 % (36.0-47.0); HEMOGLOBIN 12.8 g/dL (12.0-15.5); HGB HCT DIFFERENCE -2.3; LYMPHOCYTES % (AUTO) 5.2 % (13-45); MEAN CORPUSCULAR HEMOGLOBIN 26.7 pg (27.0-33.4); MEAN CORPUSCULAR HGB CONC 31.5 g/dL (32.0-36.0); MEAN CORPUSCULAR VOLUME 85 fl (80-97); MONOCYTES % (AUTO) 3.9 % (3-13); RED CELL DISTRIBUTION WIDTH 14.3 % (11.5-14.0); SEGMENTED NEUTROPHILS % (AUTO) 90.7 % (42-78); WHITE BLOOD COUNT 14.1 10^3/uL (4.0-10.5)
[2016-03-31 07:35] LABS: ANION GAP 9 (5-19); BLOOD UREA NITROGEN 34 mg/dL (7-20); CALCIUM 9.6 mg/dL (8.4-10.2); CARBON DIOXIDE 20 mmol/L (22-30); CHLORIDE 114 mmol/L (98-107); CREATININE RESULT 1.24 mg/dL (0.52-1.25); GLUCOSE 161 mg/dL (75-110); POTASSIUM 3.8 mmol/L (3.6-5.0); SODIUM 143.4 mmol/L (137-145)
[2016-03-31] MEDS: NORMAL SALINE 1000 ML 1,000 ML IV PRN (08:31)
[2016-03-31] MEDS: INSULIN LISPRO 100 UNIT/ML 3 ML VIAL SUBCUT PRN (08:33)
[2016-03-31] MEDS: HYDRALAZINE HCL INJ/PF 20 MG/1 ML SDV IV PRN (09:08)
[2016-03-31] MEDS ORDERED: OXYCODONE HCL IR 5 MG TABLET PO PRN (10:53)
[2016-03-31] MEDS ORDERED: LOSARTAN POTASSIUM 50 MG TABLET PO SCH (11:00)
[2016-03-31] MEDS: CHOLECALCIFEROL (D3) 400 UNIT TABLET PO SCH (12:36)
[2016-03-31] MEDS: INSULIN GLARGINE,HUM.REC.ANLOG 300 UNIT/3 ML INSULN.PEN SUBCUT SCH (12:36)
[2016-03-31] MEDS: DOCUSATE SODIUM 100 MG CAPSULE PO SCH ×2 (12:39→18:40)
[2016-03-31] MEDS: AMLODIPINE BESYLATE 10 MG TABLET PO SCH (12:39)
[2016-03-31] MEDS ORDERED: HYDRALAZINE HCL 50 MG TABLET PO ONE (15:32)
--- NOTE | 2016-03-31 15:42 | PDOC PROGRESS REPORT ---
Subjective Progress Note for:: 03/31/16 Subjective:: The patient was seen earlier today on rounds. The patient would answer yes and no but would not elaborate anymore. The patient was very short and appeared irritated with the interaction. The patient denies any nausea, vomiting, diarrhea, shortness of breath, dizziness, chest pain, heart palpitations, fevers , or chills. The patient has remained afebrile. Blood pressures have been in a good range. When prompted the patient voices no other concerns at this time. Review of systems: The rest of the review of systems is negative. Physical Exam Vital Signs: Temp Pulse Resp BP Pulse Ox 98.7 F 71 16 202/67 H 95 03/31/16 08:03 03/31/16 13:11 03/31/16 13:11 03/31/16 12:47 03/31/16 13:11 Intake & Output 03/29/16 03/30/16 03/31/16 23:59 23:59 23:59 Intake Total 2062 3080 2322 Output Total 0 900 400 Balance 2062 2180 1922 Weight 74 kg 74 kg 74 kg General appearance: PRESENT: no acute distress, disheveled, well-developed, well -nourished Head exam: PRESENT: atraumatic, normocephalic Eye exam: PRESENT: conjunctiva pink, EOMI, PERRLA. ABSENT: scleral icterus Ear exam: PRESENT: normal external ear exam Mouth exam: PRESENT: moist, tongue midline Neck exam: ABSENT: carotid bruit, JVD, lymphadenopathy, thyromegaly Respiratory exam: PRESENT: symmetrical, unlabored, wheezes. ABSENT: rales, rhonchi, tachypnea Cardiovascular exam: PRESENT: RRR. ABSENT: diastolic murmur, rubs, systolic murmur Pulses: PRESENT: normal dorsalis pedis pul Vascular exam: PRESENT: normal capillary refill GI/Abdominal exam: PRESENT: normal bowel sounds, soft. ABSENT: distended, guarding, mass, organolmegaly, rebound, tenderness Rectal exam: PRESENT: deferred Extremities exam: PRESENT: full ROM. ABSENT: calf tenderness, clubbing, pedal edema Neurological exam: PRESENT: alert, awake, oriented to person, oriented to place. ABSENT: motor sensory deficit Psychiatric exam: PRESENT: agitated, unusual affect Skin exam: PRESENT: dry, intact, warm. ABSENT: cyanosis, rash Results Laboratory Results: 03/31/16 06:35 03/31/16 06:35 03/31/16 03/31/16 06:35 06:35 WBC 14.1 H RBC 4.80 Hgb 12.8 Hct 40.7 MCV 85 MCH 26.7 L MCHC 31.5 L RDW 14.3 H Plt Count 278 Seg Neutrophils % 90.7 H Lymphocytes % 5.2 L Monocytes % 3.9 Eosinophils % 0.0 Basophils % 0.2 Absolute Neutrophils 12.7 H Absolute Lymphocytes 0.7 Absolute Monocytes 0.5 Absolute Eosinophils 0.0 Absolute Basophils 0.0 Sodium 143.4 Potassium 3.8 Chloride 114 H Carbon Dioxide 20 L Anion Gap 9 BUN 34 H Creatinine 1.24 Est GFR ( Amer) 52 L Est GFR (Non-Af Amer) 43 L Glucose 161 H Calcium 9.6 Impressions: Chest X-Ray 03/28/16 17:55 IMPRESSION: NO ACUTE RADIOGRAPHIC FINDING IN THE CHEST. Head CT 03/28/16 17:56 IMPRESSION: Stable CT appearance of the brain, again demonstrating chronic microvascular ischemic changes. No evidence of acute or subacute ischemic event. Assessment & Plan - Diagnosis (1) Acute bronchitis Qualifiers: Bronchitis organism: unspecified organism Qualified Code(s): J20.9 - Acute bronchitis, unspecified Is this a current diagnosis for this admission?: YesPlan: Patient overall appears improved will continue current medication (2) COPD (chronic obstructive pulmonary disease) with acute bronchitis Is this a current diagnosis for this admission?: Yes (3) Acute renal failure Qualifiers: Acute renal failure type: unspecified Qualified Code(s): N17.9 - Acute kidney failure, unspecified Is this a current diagnosis for this admission?: YesPlan: The patient is back to baseline. Will DC IV fluids. Appears to be stage III at baseline. (4) Asymptomatic hypertensive urgency Is this a current diagnosis for this admission?: YesPlan: Will add hydralazine and continue oral medications. (5) Constipation Qualifiers: Constipation type: unspecified constipation type Qualified Code(s): K59.00 - Constipation, unspecified Is this a current diagnosis for this admission?: YesPlan: Will continue home medications. (6) Depression Qualifiers: Depression Type: major depressive disorder Is this a current diagnosis for this admission?: YesPlan: Will continue home medications. (7) Gastroparesis Is this a current diagnosis for this admission?: YesPlan: Will continue home medications. 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 (12) DVT prophylaxis Is this a current diagnosis for this admission?: YesPlan: Subcutaneous heparin (13) Tobacco abuse Is this a current diagnosis for this admission?: Yes - Time Time Spent with patient: on this visit including assessment, plan, physical examination, and patient education is 25 minutes. Time Spent with patient: 25-34 minutes Medications reviewed and adjusted accordingly: Yes Anticipated discharge: Home Within: within 48 hours Disposition: The patient is a full code. Pending patient's symptomatology and diagnostic findings will reevaluate in the a.m.
[2016-03-31] MEDS ORDERED: (PENDING PHARMACY ID) (Rosuvastatin Calcium [Crestor 20 Mg Tablet] 20 MG) PO SCH (22:00)
[2016-03-31] MEDS ORDERED: LEVOFLOXACIN 750 MG/D5W RTU 750 MG/150 ML RTUPB IV SCH (22:00)
[2016-04-01] MEDS: METOCLOPRAMIDE HCL INJ/PF 10 MG/2 ML SDV IV SCH ×3 (00:07→09:52)
[2016-04-01] MEDS: METHYLPREDNISOLONE INJ 40 MG/1 ML SDV IV SCH ×2 (00:08→06:31)
[2016-04-01] MEDS: HYDRALAZINE HCL 50 MG TABLET PO SCH ×2 (00:13→09:52)
[2016-04-01] MEDS: ATORVASTATIN CALCIUM 40 MG TABLET PO SCH (00:13)
[2016-04-01] MEDS: HEPARIN SOD (PORCINE) 5,000 UNIT/ML 1 ML SYRINGE SUBCUT SCH ×2 (00:13→06:31)
[2016-04-01] MEDS: LOSARTAN POTASSIUM 50 MG TABLET PO SCH ×2 (00:13→09:52)
[2016-04-01] MEDS: MIRTAZAPINE 15 MG TABLET PO SCH (00:13)
[2016-04-01] MEDS: INSULIN GLARGINE,HUM.REC.ANLOG 300 UNIT/3 ML INSULN.PEN SUBCUT SCH ×2 (00:14→09:53)
[2016-04-01] MEDS: IPRATROPIUM/ALBUTEROL 0.5-2.5 MG/3 ML AMPUL NEB SCH ×3 (02:37→13:37)
[2016-04-01] MEDS: ALPRAZOLAM 0.5 MG TABLET PO PRN (03:53)
[2016-04-01] MEDS: DOCUSATE SODIUM 100 MG CAPSULE PO SCH (09:52)
[2016-04-01] MEDS: CHOLECALCIFEROL (D3) 400 UNIT TABLET PO SCH (09:53)
[2016-04-01] MEDS: AMLODIPINE BESYLATE 10 MG TABLET PO SCH (09:53)
[2016-04-01] MEDS ORDERED: CLOPIDOGREL BISULFATE 75 MG TABLET PO SCH (10:00)
[2016-04-01] MEDS ORDERED: GUAIFENESIN 600 MG TABLET.SA PO ONE (11:00)
[2016-04-01] MEDS ORDERED: HYDRALAZINE HCL 50 MG TABLET PO SCH ×2 (11:00→22:00)
[2016-04-01] MEDS ORDERED: CLINDAMYCIN HCL 150 MG CAPSULE PO SCH (14:00)
[2016-04-01 14:12] VITALS: BP 175/59
--- NOTE | 2016-04-01 16:55 | PDOC DISCHARGE SUMMARY ---
General - Admit/Disc Date/PCP Admission Date/Primary Care Provider: 03/28/16 21:44 Has been referred to the primary care provider who is electrical construction project manager the day the patient was admitted. Discharge Date: 04/01/16 - Discharge Diagnosis (1) Acute bronchitis Is this a current diagnosis for this admission?: Yes (2) COPD (chronic obstructive pulmonary disease) with acute bronchitis Is this a current diagnosis for this admission?: Yes (3) Acute renal failure Is this a current diagnosis for this admission?: Yes (4) Asymptomatic hypertensive urgency Is this a current diagnosis for this admission?: Yes (5) Constipation Is this a current diagnosis for this admission?: Yes (6) Depression Is this a current diagnosis for this admission?: Yes (7) Gastroparesis Is this a current diagnosis for this admission?: Yes (8) Accelerated hypertension Is this a current diagnosis for this admission?: Yes (9) Hyperlipidemia Is this a current diagnosis for this admission?: Yes (10) Diabetes mellitus type II, controlled, with no complications Is this a current diagnosis for this admission?: Yes (11) DVT prophylaxis Is this a current diagnosis for this admission?: Yes (12) Tobacco abuse Is this a current diagnosis for this admission?: Yes - Additional Information Resuscitation Status: Full Code Discharge Diet: As Tolerated Discharge Activity: Supervised Activity Home Medications: Amlodipine Besylate [Norvasc 10 mg Tablet] 10 mg PO DAILY 03/29/16 Clopidogrel Bisulfate [Plavix 75 mg Tablet] 75 mg PO DAILY 03/29/16 Liraglutide [Victoza 2-Miko] 1.8 mg SQ DAILY 03/29/16 Oxycodone HCl [Oxy-Ir 5 mg Tablet] 5 mg PO Q6HP PRN 03/29/16 Rosuvastatin Calcium [Crestor 20 mg Tablet] 20 mg PO QHS 03/29/16 Bifidobacterium Infantis [Align 4 mg Capsule] 1 cap PO BID #28 04/01/16 Clindamycin HCl [Cleocin 300 mg Capsule] 300 mg PO Q6 #28 capsule 04/01/16 Guaifenesin [Mucinex Sr 600 mg Tablet.sa] 1,200 mg PO Q12 #8 tablet.sa 04/01/16 Hydralazine HCl [Apresoline 50 mg Tablet] 50 mg PO Q8H #90 tablet 04/01/16 Ipratropium/Albuterol Sulfate [Duoneb 3 ml Ampul] 3 ml NEB Q6HP PRN #10 vial.neb 04/01/16 Losartan Potassium [Cozaar 50 mg Tablet] 50 mg PO Q12H #60 tablet 04/01/16 Nebulizer [Nebulizer Machine] 1 each ASDIR PRN #1 kit 04/01/16 Prednisone [Deltasone 10 mg Tablet] 10 mg PO ASDIR PRN #10 tablet 04/01/16 Walker [Ultra-Light Rollator] 1 each PRN PRN #1 each 04/01/16 History of Present Illness Patient complains of: Nausea and vomiting History of Present Illness: GEORGE LAUGHLIN is a 65 year old female with a past medical history of depression and grief as she is recently , recent TIA with right-sided weakness insulin dependent diabetes, COPD with ongoing tobacco dependence, hypertension dyslipidemia and recent fall resulting in pain to the right shoulder for which she had evaluated 3 days ago in the emergency room was given oxycodone for pain. The patient subsequently had severe constipation and inability to tolerate by mouth resulting in vomiting of gastric content. In the emergency room she is found to have dehydration, constipation, acute renal failure with a creatinine of 2 and is referred to the hospitalist for admission. Discussion with family members believe her nausea vomiting predate Percocet use. The patient was referred to the hospitalist for admission and management. Hospital Course Hospital Course: The patient was admitted to telemetry. The patient was placed on scheduled nebs as well as PRN nebs, steroids, and supplemental oxygen. The patient's oxygen, steroids, and nebs were titrated and weaned. The patient is back to baseline and able to complete sentences. The patient's nausea and vomiting resolved. The patient's creatinine normalized with aggressive hydration. According to the patient she felt she may have aspirated during her vomiting episodes as she did check. The patient apparently had evidence of pneumonia on right lung during her stay and subsequently was cover with clindamycin. The patient is a significant improvement of symptoms back to baseline. During the patient's stay and did meet with her son who had a myriad of request for various durable equipment. I conceded the patient would benefit from a letter walker however I was unable to on his his request for hospital bed, shower chair, and bedside commode given that the patient did not meet criteria for any of the above given that the patient does not have wounds, is able to get out of bed, is able to ambulate with walker, patient is not confined to a single room, the patient is not confined to one level of her home environment without a toilet, and the patient does have indoor plumbing. Physical Exam Vital Signs: Temp Pulse Resp BP Pulse Ox 98.0 F 88 20 175/59 H 92 04/01/16 12:26 04/01/16 12:26 04/01/16 12:26 04/01/16 12:26 04/01/16 12:26 Intake & Output 03/30/16 03/31/16 04/01/16 23:59 23:59 23:59 Intake Total 3080 3687 50 Output Total 900 1000 Balance 2180 2687 50 Weight 74 kg 74 kg 74 kg General appearance: PRESENT: no acute distress, disheveled, well-developed, well -nourished Head exam: PRESENT: atraumatic, normocephalic Eye exam: PRESENT: conjunctiva pink, EOMI, PERRLA. ABSENT: scleral icterus Ear exam: PRESENT: normal external ear exam Mouth exam: PRESENT: moist, tongue midline Neck exam: ABSENT: carotid bruit, JVD, lymphadenopathy, thyromegaly Respiratory exam: PRESENT: clear to auscultation nicole, symmetrical, unlabored. ABSENT: rales, rhonchi, tachypnea, wheezes Cardiovascular exam: PRESENT: RRR. ABSENT: diastolic murmur, rubs, systolic murmur Pulses: PRESENT: normal dorsalis pedis pul Vascular exam: PRESENT: normal capillary refill GI/Abdominal exam: PRESENT: normal bowel sounds, soft. ABSENT: distended, guarding, mass, organolmegaly, rebound, tenderness Rectal exam: PRESENT: deferred Extremities exam: PRESENT: full ROM. ABSENT: calf tenderness, clubbing, pedal edema Neurological exam: PRESENT: alert, awake, oriented to person, oriented to place , oriented to time, oriented to situation, CN II-XII grossly intact. ABSENT: motor sensory deficit Psychiatric exam: PRESENT: appropriate affect, normal mood. ABSENT: homicidal ideation, suicidal ideation Skin exam: PRESENT: dry, intact, warm. ABSENT: cyanosis, rash Results Laboratory Results: 03/31/16 06:35 03/31/16 06:35 Impressions: Head CT 03/28/16 17:56 IMPRESSION: Stable CT appearance of the brain, again demonstrating chronic microvascular ischemic changes. No evidence of acute or subacute ischemic event. Chest X-Ray 03/31/16 18:50 IMPRESSION: PATCHY RIGHT LOWER LOBE AIRSPACE DISEASE WITH A SMALL AMOUNT OF FLUID WITHIN THE RIGHT HORIZONTAL FISSURE MAY REPRESENT DEVELOPING PNEUMONIA, ASPIRATION, OR ASYMMETRIC PULMONARY EDEMA. Qualifiers PATEINT BEING DISCHARGED WITH ANY OF THE FOLLOWING DIAGNOSIS?: No Plan Discharge Plan: The patient is to followup with their primary care provider, [ ], within one week for hospital followup regarding bronchitis. Time Spent: Greater than 30 Minutes
[2016-04-01] MEDS ORDERED: PREDNISONE 20 MG TABLET PO SCH (18:00)
[2016-04-01] MEDS ORDERED: LACTOBACILLUS ACIDOPHILUS 250 MG TAB PO SCH (18:00)
[2016-04-01] MEDS ORDERED: GUAIFENESIN 600 MG TABLET.SA PO SCH (22:00)
[2016-04-02] MEDS ORDERED: CITALOPRAM HYDROBROMIDE 20 MG TABLET PO SCH (10:00)
== END 2016-04-01 15:39 | disposition home health service (06) | DRG 191 ==
LOC: ER 15:19 → EH 21:25 → OBSVTOIN 21:44 → EH 21:44 → UNDOADMOB 21:44 → INTOOBSV 21:44 → 5 03-29 01:21
PROVIDERS: ADMIT Internal Medicine; ATTEND Internal Medicine
PROC: 3E0F73Z Introduction of Anti-inflammatory into Respiratory Tract, Via Natural or Artificial Opening (ICD-10-PCS; principal; 2016-03-29)
DX: J44.0 Chronic obstructive pulmonary disease with (acute) lower respiratory infection (principal); N17.9 Acute kidney failure, unspecified; I69.351 Hemiplegia and hemiparesis following cerebral infarction affecting right dominant side; J20.9 Acute bronchitis, unspecified; J44.1 Chronic obstructive pulmonary disease with (acute) exacerbation; E11.43 Type 2 diabetes mellitus with diabetic autonomic (poly)neuropathy; K31.84 Gastroparesis; I16.0 Hypertensive urgency; I10 Essential (primary) hypertension; K59.00 Constipation, unspecified; F32.9 Major depressive disorder, single episode, unspecified; E78.5 Hyperlipidemia, unspecified; F17.210 Nicotine dependence, cigarettes, uncomplicated; E86.0 Dehydration; R09.02 Hypoxemia; Z79.4 Long term (current) use of insulin; Z79.899 Other long term (current) drug therapy; Z90.710 Acquired absence of both cervix and uterus; Z88.0 Allergy status to penicillin; Z88.6 Allergy status to analgesic agent; Z91.040 Latex allergy status; Z83.6 Family history of other diseases of the respiratory system
CPT/HCPCS: 36415; 70450; 71010; 72070; 72110; 80048; 80053; 81001; 82553; 82962; 83036; 83735; 84484; 85025; 87086; 93005; 93010; 96361; 96365; 96375; 96376; 99285; G8978-GP; G8979-GP; J0360; J1644; J1815; J1956; J2310; J2405; J2765; J2920; J3490; J7030; J7620

== ENCOUNTER 2016-10-17 22:07 | Emergency (ER) | payer MEDICARE, OTHER ==
--- NOTE | 2016-10-18 00:03 | RADIOLOGY REPORT (SQ) ---
EXAM DESCRIPTION: RIBS LEFT W/PA CHEST COMPLETED DATE/TIME: 10/17/2016 11:43 pm REASON FOR STUDY: fall, rib injury, pain COMPARISON: 03/31/2016 TECHNIQUE: Frontal view of the chest and additional views of the left ribs acquired. NUMBER OF VIEWS: Four view. LIMITATIONS: None. FINDINGS: FRONTAL CXR: No pneumothorax. Small left-sided pleural effusion. No atelectasis or infil trates. Stable left lung base scarring. RIBS: Several subtle cortical irregularities are seen of the left lateral ribs, predominantly involvi ng ribs 7 through 10, suggest nondisplaced rib fractures. The 8th rib injury demonstrates some heali ng changes, conferring a subacute appearance. OTHER: No other significant finding. IMPRESSION: Multiple age indeterminate rib fractures involving left lateral ribs 7 through 10. Carlos mmend correlation with timing and mechanism of injury. COMMENT: SITE OF TRAUMA/COMPLAINT MARKED/STAMP COMPLETED: NO. TECHNICAL DOCUMENTATION: JOB ID: [id number] [employer]- All Rights Reserved
[2016-10-18] MEDS ORDERED: HYDROCODONE/ACETAMINOPHEN 5-325 MG 6 TAB/DSPK PO PRN (00:22)
--- NOTE | 2016-10-18 00:24 | ER Document Report ---
ED General - General Chief Complaint: Rib Pain Stated Complaint: FALL/RIB PAIN Time Seen by Provider: 10/17/16 23:25 Mode of Arrival: Wheelchair Information source: Patient Notes: Patient is a 66-year-old female with a history of stroke leaving her with left- sided weakness who presents to the ER today after fall Wednesday at 3 AM when she was getting up to go to the bathroom, hitting her left side on a wooden nightstand. Patient states that she has had some pain since that time but that it does not hurt to breathe. She also fell and hit that same side in March of this year. She denies any bruising. She denies hitting her head or losing consciousness. TRAVEL OUTSIDE OF THE [place] IN LAST 30 DAYS: No - Related Data Allergies/Adverse Reactions: latex [Latex] Allergy (Mild, Verified 03/28/16 16:38) RASH Penicillins Allergy (Mild, Verified 03/28/16 16:38) RASH, BREATHING DIFFICULTY acetaminophen [From Tylenol] Allergy (Verified 03/28/16 16:38) codeine Allergy (Verified 03/28/16 16:38) Past Medical History - General Information source: Patient - Social History Smoking Status: Former Smoker Family History: COPD Patient has suicidal ideation: No Patient has homicidal ideation: No - Past Medical History Cardiac Medical History: Reports: Hx Hypertension Denies: Hx Atrial Fibrillation, Hx Congestive Heart Failure, Hx Heart Attack , Hx Peripheral Vascular Disease, Hx Pulmonary Embolism Pulmonary Medical History: Reports: Hx COPD Denies: Hx Asthma Neurological Medical History: Denies: Hx Cerebrovascular Accident, Hx Seizures Endocrine Medical History: Reports: Hx Diabetes Mellitus Type 2 Renal/ Medical History: Denies: Hx Peritoneal Dialysis GI Medical History: Denies: Hx Hepatitis, Hx Hiatal Hernia, Hx Ulcer Psychiatric Medical History: Reports: Hx Depression Infectious Medical History: Denies: Hx Hepatitis Past Surgical History: Reports: Hx Hysterectomy. Denies: Hx Mastectomy, Hx Open Heart Surgery, Hx Pacemaker Review of Systems - Review of Systems Constitutional: No symptoms reported EENT: No symptoms reported Cardiovascular: No symptoms reported Respiratory: No symptoms reported Gastrointestinal: No symptoms reported Genitourinary: No symptoms reported Female Genitourinary: No symptoms reported Musculoskeletal: See HPI Skin: No symptoms reported Hematologic/Lymphatic: No symptoms reported Neurological/Psychological: No symptoms reported Physical Exam - Vital signs Vitals: Temp Pulse Resp BP Pulse Ox 98.2 F 81 20 167/68 H 95 10/17/16 22:16 10/17/16 22:16 10/17/16 22:16 10/17/16 22:16 10/17/16 22:16 - Notes Notes: PHYSICAL EXAMINATION: GENERAL: Appears uncomfortable, but in no acute distress. HEAD: Atraumatic, normocephalic. EYES: Pupils equal round and reactive to light, extraocular movements intact, sclera anicteric, conjunctiva are normal. NECK: Normal range of motion, supple without lymphadenopathy LUNGS: CTAB and equal. No wheezes rales or rhonchi. HEART: Regular rate and rhythm without murmurs ABDOMEN: tender over left lateral ribs, otherwise Soft, no abdominal tenderness. No guarding, no rebound BACK: no vertebral tenderness, normal ROM GI/: no CVA tenderness EXTREMITIES: Normal range of motion, no pitting edema. No cyanosis. NEUROLOGICAL: decreased strength on left side, Cranial nerves grossly intact. PSYCH: Normal mood, normal affect. SKIN: Warm, Dry, normal turgor, no rashes or lesions noted Course - Re-evaluation Re-evalutation: 10/18/16 00:35 x ray reports old and healing fractures with possible subacute fractures of 7-10 , all nondisplaced with small pleural effusion to left lower lobe. Due to old and new fractures and no increased pain with breathing, I did discharge pt with pain medication. She states she can get in with her pcp easily and will follow up Wednesday morning. (today is wednesday) or return with worsening symptoms, her vitals are all stable today. - Vital Signs Vital signs: Temp Pulse Resp BP Pulse Ox 98.2 F 81 20 167/68 H 95 10/17/16 22:16 10/17/16 22:16 10/17/16 22:16 10/17/16 22:16 10/17/16 22:16 Discharge - Discharge Clinical Impression: Rib fractures Qualifiers: Encounter type: initial encounter Rib fracture type: multiple ribs Fracture type: closed Laterality: left Qualified Code(s): S22.42XA - Multiple fractures of ribs, left side, initial encounter for closed fracture Condition: Stable Disposition: HOME, SELF-CARE Additional Instructions: Return immediately for any new or worsening symptoms. Follow up with primary care provider, call tomorrow to make followup appointment. Prescriptions: Hydrocodone/Acetaminophen [Olean 5-325 mg Tablet] 1 tab PO Q4 PRN #12 tablet PRN Reason: Referrals: AIXA GUTIERREZ MD [Primary Care Provider] - Follow up as needed
[2016-10-18 00:43] VITALS: BP 155/87
== END 2016-10-18 00:52 | disposition home or self-care (01) ==
LOC: ER 22:07
DX: S22.42XA Multiple fractures of ribs, left side, initial encounter for closed fracture (principal); R53.1 Weakness; Y92.009 Unspecified place in unspecified non-institutional (private) residence as the place of occurrence of the external cause; W18.39XA Other fall on same level, initial encounter; I10 Essential (primary) hypertension; E11.9 Type 2 diabetes mellitus without complications; Z90.710 Acquired absence of both cervix and uterus; Z88.0 Allergy status to penicillin; Z88.6 Allergy status to analgesic agent
CPT/HCPCS: 99283; 71101; A9270

== ENCOUNTER → 2017-02-17 | Outpatient (CLI) | payer MEDICARE, OTHER ==
--- NOTE | 2017-02-17 12:49 | RADIOLOGY REPORT (SQ) ---
EXAM DESCRIPTION: MRI HEAD WITHOUT COMPLETED DATE/TIME: 02/17/2017 11:52 am REASON FOR STUDY: HEMIPLGA FOL UNSP CEREBVASC DISEASE AFF RIGHT DOMINANT SIDE (I69.951) I69.951 HEM IPLGA FOL UNSP CEREBVASC DISEASE AFF RIGHT DOMINA COMPARISON: 03/11/2016 TECHNIQUE: Multiplanar imaging includes non-contrasted T1, T2, FLAIR, and diffusion with ADC map seq uences. Images stored on PACS. LIMITATIONS: None. FINDINGS: ANATOMY: No anomalies. Normal vascular flow voids. Pituitary fossa normal. CSF SPACES: Atrophy induced prominence of ventricles and CSF spaces. CEREBRUM: Old lacunar infarcts basal ganglia and left thalamus. Old infarct left internal capsule. High signal intensity lesions scattered throughout the white matter on FLAIR imaging with distributio n suggesting micro-vascular ischemic changes. No evidence of hemorrhage, mass, or extraaxial fluid c ollection. POSTERIOR FOSSA: No signal alteration. No hemorrhage. No edema, masses or mass effect. Internal kalie tory canals, cerebello-pontine angles, mastoids normal. DIFFUSION IMAGING: Areas of T2 shine through without corresponding decreased signal on ADC map. ORBITS: No masses. Globes normal. PARANASAL SINUSES: No fluid levels. Mucosa normal. OTHER: No other significant finding. IMPRESSION: Chronic ischemic changes. EVIDENCE OF ACUTE STROKE: NO. TECHNICAL DOCUMENTATION: JOB ID: [id number] [employer]- All Rights Reserved
== END ==
LOC: RAD 10:36
PROVIDERS: ATTEND Family Medicine
DX: I69.951 Hemiplegia and hemiparesis following unspecified cerebrovascular disease affecting right dominant side (principal)
CPT/HCPCS: 70551

== ENCOUNTER → 2017-02-22 | Outpatient (CLI) | payer MEDICARE, OTHER ==
[2017-02-22 12:58] LABS: ALANINE AMINOTRANSFERASE 26 U/L (9-52); ALBUMIN 3.2 g/dL (3.5-5.0); ALKALINE PHOSPHATASE 136 U/L (38-126); ANION GAP 11 (5-19); ASPARTATE AMINO TRANSFERASE 14 U/L (14-36); BILIRUBIN,DIRECT 0.5 mg/dL (0.0-0.4); BILIRUBIN,TOTAL 0.5 mg/dL (0.2-1.3); BLOOD UREA NITROGEN 30 mg/dL (7-20); CALCIUM 9.2 mg/dL (8.4-10.2); CARBON DIOXIDE 18 mmol/L (22-30); CHLORIDE 111 mmol/L (98-107); CREATININE RESULT 2.65 mg/dL (0.52-1.25); Direct HDL 42 mg/dL (>40); GLUCOSE 175 mg/dL (75-110); POTASSIUM 5.3 mmol/L (3.6-5.0); SODIUM 139.6 mmol/L (137-145); TOTAL PROTEIN 6.6 g/dL (6.3-8.2); TRIGLYCERIDES 468 mg/dL (<150)
[2017-02-22 13:09] LABS: DIRECT LDL 184 mg/dL (<100)
[2017-02-22 13:26] LABS: CHOLESTEROL 340.82 mg/dL (0-200)
== END ==
LOC: OD 11:32
PROVIDERS: ATTEND Family Medicine
DX: I10 Essential (primary) hypertension (principal); Z79.1 Long term (current) use of non-steroidal anti-inflammatories (NSAID)
CPT/HCPCS: 36415; 80053; 80061

== ENCOUNTER → 2017-02-25 | Outpatient (CLI) | payer MEDICARE, OTHER ==
[2017-02-25 11:21] LABS: ABSOLUTE EOSINOPHILS # (AUTO) 1.1 10^3/uL (0.0-0.6); ABSOLUTE LYMPHOCYTES (AUTO) 1.8 10^3/uL (0.5-4.7); ABSOLUTE MONOCYTES (AUTO) 0.4 10^3/uL (0.1-1.4); ABSOLUTE NEUT (AUTO) 4.5 10^3/uL (1.7-8.2); BASOPHILS % (AUTO) 0.6 % (0-2); EOSINOPHILS % (AUTO) 13.6 % (0-6); HEMATOCRIT 33.9 % (36.0-47.0); HEMOGLOBIN 11.2 g/dL (12.0-15.5); HGB HCT DIFFERENCE -0.3; LYMPHOCYTES % (AUTO) 23.1 % (13-45); MEAN CORPUSCULAR HEMOGLOBIN 27.9 pg (27.0-33.4); MEAN CORPUSCULAR VOLUME 85 fl (80-97); MONOCYTES % (AUTO) 5.4 % (3-13); RED BLOOD COUNT 4.01 10^6/uL (3.72-5.28); RED CELL DISTRIBUTION WIDTH 14.6 % (11.5-14.0); SEGMENTED NEUTROPHILS % (AUTO) 57.3 % (42-78); WHITE BLOOD COUNT 7.9 10^3/uL (4.0-10.5)
== END ==
LOC: OD 10:48
PROVIDERS: ATTEND Family Medicine
DX: I10 Essential (primary) hypertension (principal); Z79.1 Long term (current) use of non-steroidal anti-inflammatories (NSAID)
CPT/HCPCS: 36415; 85025

== ENCOUNTER → 2017-03-09 | Outpatient (CLI) | payer MEDICARE, OTHER ==
--- NOTE | 2017-03-09 12:39 | RADIOLOGY REPORT (SQ) ---
EXAM DESCRIPTION: KNEE LEFT 4 VIEW COMPLETED DATE/TIME: 03/09/2017 11:29 am REASON FOR STUDY: M25.562 PAIN IN LEFT KNEE M25.562 PAIN IN LEFT KNEE COMPARISON: None. NUMBER OF VIEWS: Four views. TECHNIQUE: AP, lateral, and both oblique radiographic images acquired of the left knee. LIMITATIONS: None. FINDINGS: MINERALIZATION: Osteopenia. BONES: Minimally displaced oblique fracture of the proximal fibula JOINT: No effusion. SOFT TISSUES: No soft tissue swelling. No radio-opaque foreign body. OTHER: No other significant finding. IMPRESSION: Minimally displaced fracture proximal fibula. TECHNICAL DOCUMENTATION: JOB ID: [id number] [employer]- All Rights Reserved
== END ==
LOC: RAD 11:10
PROVIDERS: ATTEND Family Medicine
DX: M25.562 Pain in left knee (principal); S82.452A Displaced comminuted fracture of shaft of left fibula, initial encounter for closed fracture

== ENCOUNTER 2017-03-18 14:41 | Inpatient (IN) | payer MEDICARE, OTHER ==
[2017-03-18] MEDS ORDERED: ONDANSETRON HCL INJ/PF 4 MG/2 ML SDV IV ONE (16:00)
[2017-03-18] MEDS ORDERED: NORMAL SALINE 1000 ML 1,000 ML IV PRN (16:06)
--- NOTE | 2017-03-18 16:12 | ER Document Report ---
ED General - General Chief Complaint: Nausea Stated Complaint: NAUSEA TRAVEL OUTSIDE OF THE [place] 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 Denies any recent travel, medications or foods. Patient states that started gradually. Patient has had history of nausea and vomiting in the past. Patient switched her primary care to Dr. Lauren Celaya, per son. Patient is recently been decreased on her clonidine from 3 times a day to twice a day approximately a week and half ago. Recent MRI of head done a month ago was negative for any acute findings and showed chronic ischemic changes.. Patient has chronic kidney disease, has first appointment with nephrology on April 07 with [facility] per son. Denies any rashes. Denies any chest pain, shortness of breath, diarrhea, vaginal or pelvic pain. Denies any blurred vision, double vision, loss of vision. Patient states she did not take blood pressure medication today - Related Data Allergies/Adverse Reactions: latex [Latex] Allergy (Mild, Verified 03/18/17 15:38) RASH Penicillins Allergy (Mild, Verified 03/18/17 15:38) RASH, BREATHING DIFFICULTY acetaminophen [From Tylenol] Allergy (Verified 03/18/17 15:38) codeine Allergy (Verified 03/18/17 15:38) Past Medical History - Social History Smoking Status: Unknown if Ever Smoked Chew tobacco use (# tins/day): No Frequency of alcohol use: None Drug Abuse: None Family History: COPD Patient has suicidal ideation: No Patient has homicidal ideation: No - Past Medical History Cardiac Medical History: Reports: Hx Hypertension Denies: Hx Atrial Fibrillation, Hx Congestive Heart Failure, Hx Heart Attack , Hx Peripheral Vascular Disease, Hx Pulmonary Embolism Pulmonary Medical History: Reports: Hx COPD Denies: Hx Asthma Neurological Medical History: Denies: Hx Cerebrovascular Accident, Hx Seizures Endocrine Medical History: Reports: Hx Diabetes Mellitus Type 2 Renal/ Medical History: Denies: Hx Peritoneal Dialysis GI Medical History: Denies: Hx Hepatitis, Hx Hiatal Hernia, Hx Ulcer Psychiatric Medical History: Reports: Hx Depression Infectious Medical History: Denies: Hx Hepatitis Past Surgical History: Reports: Hx Hysterectomy. Denies: Hx Mastectomy, Hx Open Heart Surgery, Hx Pacemaker Physical Exam - Vital signs Vitals: Temp Pulse Resp BP Pulse Ox 98.7 F 101 H 18 168/99 H 97 03/18/17 15:15 03/18/17 15:15 03/18/17 15:15 03/18/17 15:15 03/18/17 15:15 Interpretation: Tachycardic - Notes Notes: PHYSICAL EXAMINATION: GENERAL: Well-appearing, well-nourished and in no acute distress. HEAD: Atraumatic, normocephalic. EYES: Pupils equal round and reactive to light, extraocular movements intact, conjunctiva are normal. ENT: Nares patent, oropharynx clear without exudates. Moist mucous membranes. NECK: Normal range of motion, supple without lymphadenopathy LUNGS: Breath sounds clear to auscultation bilaterally and equal. No wheezes rales or rhonchi. HEART: Regular rate and rhythm without murmurs ABDOMEN: Soft, nontender, nondistended abdomen. No guarding, no rebound. No masses appreciated. Female : deferred Musculoskeletal: Normal range of motion, no pitting or edema. No cyanosis. NEUROLOGICAL: Cranial nerves grossly intact. slow speech. Extremity strength 2 out of 5, right lower extremity 3 out of 5, left lower extremity 45, left upper extremity 4 out of 5. Decreased sensation to light touch on the right. No facial droop, tongue midline. No drift, dysmetria or lag PSYCH: Normal mood, normal affect. SKIN: Warm, Dry, normal turgor, no rashes or lesions noted. Course - Re-evaluation Re-evalutation: 03/18/17 1745-patient given 10mg hydralazine for blood pressure 200/110. blood pressure did not show a reduction for over 1 hour. 1800- Added losartan p.o. 50 mg and clonidine 0.1 mg. With and review of laboratory findings, patient shows chronic renal failure with trending creatinine and GFR's. pt had an episodic nausa. CBC clotted and needs to be redrawn. Nurses attempted but unable to gain any blood access, power grader operator called at bedside for redraw. Awaiting for blood redraw. CT abdomen/pelvis nad per rad disposition given to VON muñoz at 1930 03/18/17 19:26 - Vital Signs Vital signs: Temp Pulse Resp BP Pulse Ox 98.7 F 101 H 17 214/90 H 94 03/18/17 15:15 03/18/17 15:15 03/18/17 17:40 03/18/17 17:40 03/18/17 16:21 - Laboratory Result Diagrams: 03/18/17 17:30 03/18/17 17:30 Laboratory results interpreted by me: 03/18/17 03/18/17 17:30 17:30 Chloride 110 H Carbon Dioxide 18 L BUN 38 H Creatinine 2.99 H Est GFR ( Amer) 19 L Est GFR (Non-Af Amer) 16 L Glucose 163 H AST 13 L Alkaline Phosphatase 151 H C-Reactive Protein 10.4 H NT-Pro-B Natriuret Pep 5510 H Albumin 3.2 L - Diagnostic Exam Chest Type of test: Xray Findings: Nml/NAD - EKG Interpretation by Sd EKG shows normal: Sinus rhythm Rate: Tachycardia Voltage: Consistant with LVH Discharge - Discharge Referrals: SHELBY RAYA MD [Primary Care Provider] - Follow up as needed
--- NOTE | 2017-03-18 17:18 | RADIOLOGY REPORT (SQ) ---
EXAM DESCRIPTION: CHEST SINGLE VIEW COMPLETED DATE/TIME: 03/18/2017 5:02 pm REASON FOR STUDY: weakness COMPARISON: March 2016 EXAM PARAMETERS: NUMBER OF VIEWS: One view. TECHNIQUE: Single frontal radiographic view of the chest acquired. RADIATION DOSE: NA LIMITATIONS: None. FINDINGS: LUNGS AND PLEURA: No opacities, masses or pneumothorax. No pleural effusion. There are so me minimal linear densities in the left lower lung field which could represent subsegmental atelectas is or scarring. MEDIASTINUM AND HILAR STRUCTURES: There is some widening of the superior mediastinum with mild trache al deviation at the thoracic inlet unchanged from the previous study. HEART AND VASCULAR STRUCTURES: The configuration of the heart and mediastinal structures is unchanged . BONES: No acute findings. HARDWARE: None in the chest. OTHER: No other significant finding. IMPRESSION: NO ACUTE RADIOGRAPHIC FINDING IN THE CHEST. TECHNICAL DOCUMENTATION: JOB ID: [id number] [employer]- All Rights Reserved
[2017-03-18] MEDS ORDERED: HYDRALAZINE HCL INJ/PF 20 MG/1 ML SDV IV ONE (17:23)
[2017-03-18] MEDS ORDERED: METOCLOPRAMIDE HCL INJ/PF 10 MG/2 ML SDV IV ONE (17:57)
[2017-03-18] MEDS ORDERED: CLONIDINE HCL 0.1 MG TABLET PO ONE (18:01)
[2017-03-18] MEDS ORDERED: LOSARTAN POTASSIUM 50 MG TABLET PO ONE (18:01)
[2017-03-18 18:13] LABS: ALANINE AMINOTRANSFERASE 17 U/L (9-52); ALBUMIN 3.2 g/dL (3.5-5.0); ALKALINE PHOSPHATASE 151 U/L (38-126); ANION GAP 14 (5-19); ASPARTATE AMINO TRANSFERASE 13 U/L (14-36); BILIRUBIN,DIRECT 0.3 mg/dL (0.0-0.4); BILIRUBIN,TOTAL 0.5 mg/dL (0.2-1.3); BLOOD UREA NITROGEN 38 mg/dL (7-20); C-REACTIVE PROTEIN 10.4 mg/L (<10.0); CALCIUM 9.2 mg/dL (8.4-10.2); CARBON DIOXIDE 18 mmol/L (22-30); CHLORIDE 110 mmol/L (98-107); GLUCOSE 163 mg/dL (75-110); LIPASE 35.9 U/L (23-300); MAGNESIUM 1.9 mg/dL (1.6-2.3); POTASSIUM 4.9 mmol/L (3.6-5.0); SODIUM 142.3 mmol/L (137-145); TOTAL PROTEIN 6.3 g/dL (6.3-8.2)
--- NOTE | 2017-03-18 18:41 | EKG REPORT ---
SEVERITY:- ABNORMAL ECG - SINUS TACHYCARDIA PROBABLE LVH WITH SECONDARY REPOL ABNRM : Confirmed by: Baldomero Hollis MD 18-Mar-2017 18:40:39
--- NOTE | 2017-03-18 19:04 | RADIOLOGY REPORT (SQ) ---
EXAM DESCRIPTION: CT ABD/PELVIS NO ORAL OR IV COMPLETED DATE/TIME: 03/18/2017 6:52 pm REASON FOR STUDY: n/v with abd pain COMPARISON: None. TECHNIQUE: CT scan of the abdomen and pelvis performed without intravenous or oral contrast. Images reviewed with lung, soft tissue, and bone windows. Reconstructed coronal and sagittal MPR images revi ewed. All images stored on PACS. All CT scanners at this facility use dose modulation, iterative reconstruction, and/or weight based d osing when appropriate to reduce radiation dose to as low as reasonably achievable (ALARA). [facility]: Dose Right [facility]: CareDose [facility]: Dose Right [facility]: Teradose 4D [facility]: [place] RADIATION DOSE: CT Rad equipment meets quality standard of care and radiation dose reduction techniq ues were employed. CTDIvol: 8.9 mGy. DLP: 496 mGy-cm.mGy. LIMITATIONS: None. FINDINGS: LOWER CHEST: No significant findings. No nodules or infiltrates. NON-CONTRASTED LIVER, SPLEEN, ADRENALS: Evaluation limited by lack of IV contrast. No identified sign ificant masses. PANCREAS: No masses. No peripancreatic inflammatory changes. GALLBLADDER: Surgically absent. RIGHT KIDNEY AND URETER: No suspicious masses. Assessment limited by lack of IV contrast. Periphera l calcifications. Scarring. No hydronephrosis or hydroureter. LEFT KIDNEY AND URETER: 6 mm indeterminate mass exophytic from the mid kidney. No significant calci fications. No hydronephrosis or hydroureter. AORTA AND RETROPERITONEUM: No aneurysm. No retroperitoneal masses or adenopathy. BOWEL AND PERITONEAL CAVITY: No obvious masses or inflammatory changes. No free fluid. APPENDIX: Normal. PELVIS, BLADDER, AND ABDOMINAL WALL:No abnormal masses. No free fluid. Bladder normal. BONES: Compression fractures of T11 and T7 which are age indeterminate. OTHER: No other significant finding. IMPRESSION: No acute intra-abdominal process. 6 mm indeterminate mass left kidney. Compression fractures T11 and T7 which are age indeterminate. COMMENT: Quality ID # [id number]: Final reports with documentation of one or more dose reduction techniques (e.g., Automated exposure control, adjustment of the mA and/or kV according to patient size, use of iterative reconstruction technique) TECHNICAL DOCUMENTATION: JOB ID: [id number] [employer]- All Rights Reserved
[2017-03-18 21:45] LABS: ABSOLUTE BASOPHILS # (AUTO) 0.1 10^3/uL (0.0-0.2); ABSOLUTE LYMPHOCYTES (AUTO) 1.5 10^3/uL (0.5-4.7); ABSOLUTE MONOCYTES (AUTO) 0.4 10^3/uL (0.1-1.4); ABSOLUTE NEUT (AUTO) 9.7 10^3/uL (1.7-8.2); BASOPHILS % (AUTO) 0.7 % (0-2); EOSINOPHILS % (AUTO) 0.1 % (0-6); HEMATOCRIT 35.2 % (36.0-47.0); HEMOGLOBIN 11.1 g/dL (12.0-15.5); MEAN CORPUSCULAR HEMOGLOBIN 26.9 pg (27.0-33.4); MEAN CORPUSCULAR HGB CONC 31.6 g/dL (32.0-36.0); MEAN CORPUSCULAR VOLUME 85 fl (80-97); MONOCYTES % (AUTO) 3.1 % (3-13); PLATELET COUNT 367 10^3/uL (150-450); RED BLOOD COUNT 4.14 10^6/uL (3.72-5.28); RED CELL DISTRIBUTION WIDTH 14.7 % (11.5-14.0); SEGMENTED NEUTROPHILS % (AUTO) 83.1 % (42-78); TOTAL CELLS COUNTED % (AUTO) 100 %; WHITE BLOOD COUNT 11.7 10^3/uL (4.0-10.5)
[2017-03-18] MEDS ORDERED: PROCHLORPERAZINE EDISYLATE INJ 10 MG/2 ML VIAL IV ONE (22:46)
[2017-03-18 23:08] LABS: AMORPHOUS SEDIMENT,URINE TRACE /HPF; APPEARANCE,URINE CLOUDY; BILIRUBIN,URINE NEGATIVE (NEGATIVE); COLOR,URINE YELLOW; GLUCOSE, URINE >=500 mg/dL (NEGATIVE); KETONES,URINE 20 mg/dL (NEGATIVE); LEUKOCYTE ESTERASE,URINE NEGATIVE (NEGATIVE); NITRITE,URINE NEGATIVE (NEGATIVE); PROTEIN,URINE >=500 mg/dL (NEGATIVE); URINE SPECIFIC GRAVITY 1.021; UROBILINOGEN,URINE NEGATIVE mg/dL (<2.0)
[2017-03-19] MEDS ORDERED: PROMETHAZINE HCL INJ 25 MG/1 ML VIAL IV ONE (00:22)
[2017-03-19] MEDS ORDERED: NORMAL SALINE 1000 ML 1,000 ML IV PRN ×2 (00:45→02:16)
[2017-03-19] MEDS ORDERED: PROMETHAZINE HCL 25 MG SUPP.RECT PR PRN (02:16)
[2017-03-19] MEDS ORDERED: ONDANSETRON HCL INJ/PF 4 MG/2 ML SDV IV PRN (02:16)
[2017-03-19] MEDS ORDERED: DEXTROSE 40% GEL 15 GM TUBE PO PRN ×2 (02:33)
[2017-03-19] MEDS ORDERED: GLUCAGON,HUMAN RECOMB 1 MG INJ IM PRN (02:33)
[2017-03-19] MEDS ORDERED: DEXTROSE 50%-WATER 25 GM/50 ML DISP.SYRIN IV PRN ×2 (02:33)
[2017-03-19] MEDS ORDERED: INSULIN LISPRO 100 UNIT/ML 3 ML VIAL SUBCUT PRN (02:33)
[2017-03-19] MEDS ORDERED: HYDRALAZINE HCL INJ/PF 20 MG/1 ML SDV IV PRN ×2 (02:34→07:52)
[2017-03-19] MEDS ORDERED: CEFTRIAXONE 1 GM/D5W RTU 1 GM/50 ML RTUPB IV ONE (03:00)
[2017-03-19] MEDS ORDERED: CEFTRIAXONE INJ 1000 MG VIAL ONE (03:27)
[2017-03-19] MEDS: MAGNESIUM SULFATE 1 GM/D5W 100 ML IV SCH ×2 (04:51→06:14)
[2017-03-19] MEDS: ACETAMINOPHEN 325 MG TABLET PO PRN ×2 (05:33→10:17)
[2017-03-19] MEDS ORDERED: HEPARIN SOD (PORCINE) 5,000 UNIT/ML 1 ML SYRINGE SUBCUT SCH (06:00)
[2017-03-19] MEDS ORDERED: HYDRALAZINE HCL INJ/PF 20 MG/1 ML SDV IV ONE (07:51)
--- NOTE | 2017-03-19 08:17 | PDOC H&P ---
History of Present Illness Admission Date/PCP: SHELBY RAYA MD History of Present Illness: GEORGE LAUGHLIN is a 66 year old female who is an exceptionally poor historian who reports a history of diabetes, hypertension, CVA, COPD who presents with 3 days of sudden onset nausea vomiting. She denies any abdominal pain she denies any diarrhea. Patient is found to have UTI and acute on chronic renal failure. She is referred to hospital service Patient's medications are currently undergoing reconciliation. Current list is automatically generated by [employer] and does not reflect an accurate description of her medications. Due to the urgent/emergent nature of her condition, she is admitted without a full list. Past Medical History Cardiac Medical History: Reports: Hypertension Denies: Atrial Fibrillation, Congestive Heart Failure, Myocardial Infarction , Peripheral Vascular Disease, Pulmonary Embolism Pulmonary Medical History: Reports: Chronic Obstructive Pulmonary Disease (COPD) Denies: Asthma Neurological Medical History: Denies: Seizures Endocrine Medical History: Reports: Diabetes Mellitus Type 2 GI Medical History: Denies: Hepatitis, Hiatal Hernia Psychiatric Medical History: Reports: Depression Hematology: Denies: Anemia, Sickle Cell Disease Past Surgical History Past Surgical History: Reports: Hysterectomy Denies: Amputation, Mastectomy, Pacemaker Social History Smoking Status: Unknown if Ever Smoked Frequency of Alcohol Use: None Hx Recreational Drug Use: No Drugs: None Hx Prescription Drug Abuse: No - Advance Directive Resuscitation Status: Full Code Surrogate healthcare decision maker:: SonJason Family History Family History: CAD, COPD Parental Family History Reviewed: Yes Children Family History Reviewed: Yes Sibling(s) Family History Reviewed.: Yes Medication/Allergy Allergies/Adverse Reactions: latex [Latex] Allergy (Mild, Verified 03/18/17 15:38) RASH Penicillins Allergy (Mild, Verified 03/18/17 15:38) RASH, BREATHING DIFFICULTY codeine Allergy (Verified 03/18/17 15:38) Review of Systems Constitutional: PRESENT: anorexia. ABSENT: chills, fever(s), headache(s), weight gain, weight loss Eyes: ABSENT: visual disturbances Ears: ABSENT: hearing changes Cardiovascular: ABSENT: chest pain, dyspnea on exertion, edema, orthropnea, palpitations Respiratory: ABSENT: cough, hemoptysis Gastrointestinal: PRESENT: nausea, vomiting. ABSENT: abdominal pain, constipation, diarrhea, hematemesis, hematochezia, melena Genitourinary: ABSENT: dysuria, hematuria Musculoskeletal: ABSENT: joint swelling Integumentary: ABSENT: rash, wounds Neurological: ABSENT: abnormal gait, abnormal speech, confusion, dizziness, focal weakness, syncope Psychiatric: ABSENT: anxiety, depression, homidical ideation, suicidal ideation Endocrine: ABSENT: cold intolerance, heat intolerance, polydipsia, polyuria Hematologic/Lymphatic: ABSENT: easy bleeding, easy bruising Physical Exam Vital Signs: Temp Pulse Resp BP Pulse Ox 98.7 F 101 H 16 146/73 H 89 L 03/18/17 15:15 03/18/17 15:15 03/18/17 23:20 03/18/17 23:20 03/18/17 23:20 General appearance: PRESENT: mild distress, well-developed, well-nourished Head exam: PRESENT: atraumatic, normocephalic Eye exam: PRESENT: conjunctiva pink, EOMI, PERRLA. ABSENT: scleral icterus Ear exam: PRESENT: normal external ear exam Mouth exam: PRESENT: dry mucosa, tongue midline Neck exam: ABSENT: JVD, lymphadenopathy, thyromegaly, tracheal deviation Respiratory exam: PRESENT: clear to auscultation nicole. ABSENT: rales, rhonchi, wheezes Cardiovascular exam: PRESENT: +S1, +S2. ABSENT: diastolic murmur, rubs, systolic murmur Pulses: PRESENT: normal dorsalis pedis pul Vascular exam: PRESENT: normal capillary refill GI/Abdominal exam: PRESENT: hypoactive bowel sounds, soft. ABSENT: distended, firm, guarding, mass, Baker's sign, organolmegaly, rebound, rigid, tenderness Rectal exam: PRESENT: deferred Extremities exam: PRESENT: full ROM. ABSENT: calf tenderness, clubbing, pedal edema Neurological exam: PRESENT: alert, awake, oriented to person, oriented to place , oriented to time, oriented to situation, motor sensory deficit - Right-sided hemiparesis Psychiatric exam: PRESENT: appropriate affect, normal mood. ABSENT: homicidal ideation, suicidal ideation Skin exam: PRESENT: dry, intact, warm. ABSENT: cyanosis, rash Results Laboratory Results: 03/18/17 21:36 03/18/17 17:30 03/18/17 03/18/17 03/18/17 17:30 17:30 17:30 WBC Cancelled RBC Cancelled Hgb Cancelled Hct Cancelled MCV Cancelled MCH Cancelled MCHC Cancelled RDW Cancelled Plt Count Cancelled Seg Neutrophils % Cancelled Lymphocytes % Cancelled Monocytes % Cancelled Eosinophils % Cancelled Basophils % Cancelled Absolute Neutrophils Cancelled Absolute Lymphocytes Cancelled Absolute Monocytes Cancelled Absolute Eosinophils Cancelled Absolute Basophils Cancelled Sodium 142.3 Potassium 4.9 Chloride 110 H Carbon Dioxide 18 L Anion Gap 14 BUN 38 H Creatinine 2.99 H Est GFR ( Amer) 19 L Est GFR (Non-Af Amer) 16 L Glucose 163 H Lactic Acid 1.1 Calcium 9.2 Magnesium 1.9 Total Bilirubin 0.5 AST 13 L ALT 17 Alkaline Phosphatase 151 H C-Reactive Protein 10.4 H Total Protein 6.3 Albumin 3.2 L Lipase 35.9 Urine Color Urine Appearance Urine pH Ur Specific [place] Urine Protein Urine Glucose (UA) Urine Ketones Urine Blood Urine Nitrite Ur Leukocyte Esterase Urine WBC (Auto) Urine RBC (Auto) 03/18/17 03/18/17 03/18/17 17:30 21:36 22:24 WBC Cancelled 11.7 H RBC Cancelled 4.14 Hgb Cancelled 11.1 L Hct Cancelled 35.2 L MCV Cancelled 85 MCH Cancelled 26.9 L MCHC Cancelled 31.6 L RDW Cancelled 14.7 H Plt Count Cancelled 367 Seg Neutrophils % Cancelled 83.1 H Lymphocytes % Cancelled 13.0 Monocytes % Cancelled 3.1 Eosinophils % Cancelled 0.1 Basophils % Cancelled 0.7 Absolute Neutrophils Cancelled 9.7 H Absolute Lymphocytes Cancelled 1.5 Absolute Monocytes Cancelled 0.4 Absolute Eosinophils Cancelled 0.0 Absolute Basophils Cancelled 0.1 Sodium Potassium Chloride Carbon Dioxide Anion Gap BUN Creatinine Est GFR ( Amer) Est GFR (Non-Af Amer) Glucose Lactic Acid Calcium Magnesium Total Bilirubin AST ALT Alkaline Phosphatase C-Reactive Protein Total Protein Albumin Lipase Urine Color YELLOW Urine Appearance CLOUDY Urine pH 5.0 Ur Specific [place] 1.021 Urine Protein >=500 H Urine Glucose (UA) >=500 H Urine Ketones 20 H Urine Blood MODERATE H Urine Nitrite NEGATIVE Ur Leukocyte Esterase NEGATIVE Urine WBC (Auto) 43 Urine RBC (Auto) 61 03/18/17 03/18/17 03/18/17 17:30 17:30 21:36 Troponin I 0.031 0.029 NT-Pro-B Natriuret Pep 5510 H Impressions: Chest X-Ray 03/18/17 16:22 IMPRESSION: NO ACUTE RADIOGRAPHIC FINDING IN THE CHEST. Abdomen/Pelvis CT 03/18/17 18:14 IMPRESSION: No acute intra-abdominal process. 6 mm indeterminate mass left kidney. Compression fractures T11 and T7 which are age indeterminate. Assessment & Plan - Diagnosis (1) Acute renal failure Qualifiers: Acute renal failure type: unspecified Qualified Code(s): N17.9 - Acute kidney failure, unspecified Is this a current diagnosis for this admission?: Yes Plan: Gentle hydration (2) Hypertensive urgency Is this a current diagnosis for this admission?: Yes Plan: As needed hydralazine (3) Nausea & vomiting Qualifiers: Vomiting type: unspecified Vomiting Intractability: intractable Qualified Code(s): R11.2 - Nausea with vomiting, unspecified Is this a current diagnosis for this admission?: Yes Plan: May need NG if this is not controlled As needed Zofran Likely secondary to gastroparesis (4) UTI (urinary tract infection) Qualifiers: Urinary tract infection type: acute cystitis Hematuria presence: with hematuria Qualified Code(s): N30.01 - Acute cystitis with hematuria Is this a current diagnosis for this admission?: Yes Plan: Place on Rocephin send culture (5) Diabetes mellitus type II, controlled, with no complications Qualifiers: Diabetes mellitus long term acute care registered nurse insulin use: without prison use Qualified Code(s): E11.9 - Type 2 diabetes mellitus without complications Is this a current diagnosis for this admission?: Yes (6) Gastroparesis Is this a current diagnosis for this admission?: Yes Plan: Reglan (7) Hyperlipidemia Qualifiers: Hyperlipidemia type: unspecified Qualified Code(s): E78.5 - Hyperlipidemia , unspecified Is this a current diagnosis for this admission?: Yes
[2017-03-19] MEDS ORDERED: METOCLOPRAMIDE HCL INJ/PF 10 MG/2 ML SDV IV ONE (08:30)
[2017-03-19] MEDS ORDERED: LABETALOL HCL INJ 20 MG/4 ML DISP.SYRIN IV PRN (08:42)
[2017-03-19] MEDS: MAGNESIUM SULFATE/D5W 1 GM/100 ML RTUPB IV SCH ×2 (10:16→12:04)
[2017-03-19 10:20] VITALS: BP 168/67
[2017-03-19] MEDS ORDERED: METOCLOPRAMIDE HCL INJ/PF 10 MG/2 ML SDV IV SCH (11:00)
--- NOTE | 2017-03-19 13:35 | Progress Note ---
Provider Note Provider Note: Patient family has decided to take her AGAINST MEDICAL ADVICE. Patient has history of diabetes, hypertension the [facility] and COPD. Hypertensive emergency with systolic blood pressure of 215/94 with abdominal pain and vomiting. Patient was given labetalol, hydralazine, hydralazine and losartan. Last recorded blood pressure was 160/67. There are no more recorded blood pressures at this time as all equipment has been removed by the patient's family. CT abdomen was completed for patient's abdominal pain and vomiting. CT scan of the abdomen was negative for any acute intra-abdominal process. Patient does have a indeterminate mass of the left kidney. Patient was given IV hydration her acute on chronic renal failure most likely due to dehydration from vomiting over the last 3 days. Patient creatinine was 2.99 however her previous creatinine on 02/22/2017 was 2.65. Unfortunately we are unable to repeat any labs to see if patient was improving. She also had hypomagnesemia with magnesium level of 1.1. 3 g of magnesium were given. Again repeat labs were not drawn to see if there is any correction. She was noted to have a UTI with greater than 100,000 gram-negative rods which patient was given ceftriaxone. Patient only was given 1 dose of ceftriaxone. Patient family was informed that she does have UTI that scripts cannot be given if he decides to leave AGAINST MEDICAL ADVICE. The decision was made to leave AGAINST MEDICAL ADVICE and follow-up PCP. It was not evaluated prior to discharge. I was called by the nurse and informed that patient family was taking her AGAINST MEDICAL ADVICE.
[2017-03-19] MEDS ORDERED: CEFTRIAXONE 1 GM/D5W RTU 1 GM/50 ML RTUPB IV SCH (22:00)
== END 2017-03-19 13:10 | disposition left against medical advice (07) | DRG 683 ==
LOC: ER 14:41 → EH 03-19 02:29
PROVIDERS: ADMIT Family Medicine; ATTEND Family Medicine
DX: N17.9 Acute kidney failure, unspecified (principal); N30.01 Acute cystitis with hematuria; E11.22 Type 2 diabetes mellitus with diabetic chronic kidney disease; I12.9 Hypertensive chronic kidney disease with stage 1 through stage 4 chronic kidney disease, or unspecified chronic kidney disease; N18.9 Chronic kidney disease, unspecified; J44.9 Chronic obstructive pulmonary disease, unspecified; R11.2 Nausea with vomiting, unspecified; F32.9 Major depressive disorder, single episode, unspecified; I16.0 Hypertensive urgency; E78.5 Hyperlipidemia, unspecified; R63.0 Anorexia; E11.43 Type 2 diabetes mellitus with diabetic autonomic (poly)neuropathy; K31.84 Gastroparesis; E83.42 Hypomagnesemia; Z91.040 Latex allergy status; Z88.6 Allergy status to analgesic agent; Z88.0 Allergy status to penicillin; Z86.73 Personal history of transient ischemic attack (TIA), and cerebral infarction without residual deficits; Z90.710 Acquired absence of both cervix and uterus; Z83.6 Family history of other diseases of the respiratory system; Z82.49 Family history of ischemic heart disease and other diseases of the circulatory system
CPT/HCPCS: 36415; 71045; 74176; 80053; 81001; 82962; 83605; 83690; 83735; 83880; 84439; 84443; 84484; 85025; 86140; 87040; 87086; 87088; 87186; 93005; 93010; 96361; 96374; 96375; 99285; J0360; J0696; J0780; J2405; J2550; J2765; J3475; J7030

== ENCOUNTER → 2017-04-15 | Outpatient (CLI) | payer MEDICARE, OTHER ==
[2017-04-15 12:06] LABS: HEMATOCRIT 33.5 % (36.0-47.0); HEMOGLOBIN 10.6 g/dL (12.0-15.5); MEAN CORPUSCULAR HEMOGLOBIN 27.1 pg (27.0-33.4); MEAN CORPUSCULAR HGB CONC 31.6 g/dL (32.0-36.0); MEAN CORPUSCULAR VOLUME 86 fl (80-97); RED BLOOD COUNT 3.92 10^6/uL (3.72-5.28); RED CELL DISTRIBUTION WIDTH 14.7 % (11.5-14.0); WHITE BLOOD COUNT 9.3 10^3/uL (4.0-10.5)
[2017-04-15 12:23] LABS: PLATELET COUNT 340 10^3/uL (150-450)
[2017-04-15 12:26] LABS: ABSOLUTE MONOCYTES # (MANUAL) 0.3 10^3/uL (0.1-1.4); BASOPHILS % (MANUAL) 0 % (0-2); EOSINOPHILS % (MANUAL) 1 % (0-6); LYMPHOCYTES % (MANUAL) 32 % (13-45); MONOCYTES % (MANUAL) 3 % (3-13); SEGMENTED NEUTROPHILS % (MAN) 64 % (42-78); TOTAL CELLS COUNTED 100
[2017-04-15 12:27] LABS: ANISOCYTOSIS SLIGHT; OVALOCYTES 1+; PLATELET CLUMPS PRESENT; POIKILOCYTOSIS 1+; TEAR DROP CELLS SLIGHT
[2017-04-15 12:43] LABS: ALBUMIN 3.1 g/dL (3.5-5.0); ANION GAP 7 (5-19); BLOOD UREA NITROGEN 27 mg/dL (7-20); CALCIUM 9.4 mg/dL (8.4-10.2); CARBON DIOXIDE 21 mmol/L (22-30); CHLORIDE 111 mmol/L (98-107); GLUCOSE 187 mg/dL (75-110); PHOSPHORUS 4.9 mg/dL (2.5-4.5); POTASSIUM 5.7 mmol/L (3.6-5.0); SODIUM 139.4 mmol/L (137-145)
[2017-04-15 13:01] LABS: APPEARANCE,URINE SLIGHTLY-CLOUDY; BILIRUBIN,URINE NEGATIVE (NEGATIVE); COLOR,URINE YELLOW; GLUCOSE, URINE 150 mg/dL (NEGATIVE); KETONES,URINE NEGATIVE (NEGATIVE); LEUKOCYTE ESTERASE,URINE SMALL (NEGATIVE); NITRITE,URINE NEGATIVE (NEGATIVE); PROTEIN,URINE >=500 mg/dL (NEGATIVE); UROBILINOGEN,URINE NEGATIVE mg/dL (<2.0)
[2017-04-15 13:24] LABS: URINE CREATININE 66.9 mg/dL (15-278)
[2017-04-15 13:45] LABS: UR PRO/CREAT RATIO RESULT 9.4 mg/mg (0.0-0.2); URINE PROTEIN 632.1 mg/dL (<12)
== END ==
LOC: OD 11:09
PROVIDERS: ATTEND Internal Medicine Nephrology
DX: N17.9 Acute kidney failure, unspecified (principal); R80.1 Persistent proteinuria, unspecified; N28.89 Other specified disorders of kidney and ureter; D64.9 Anemia, unspecified
CPT/HCPCS: 36415; 80048; 81001; 82040; 82306; 82570; 83970; 84100; 84156; 85025

== ENCOUNTER → 2017-04-23 | Outpatient (CLI) | payer MEDICARE, OTHER | LOC: OD 10:19 | PROVIDERS: ATTEND Internal Medicine Nephrology | DX: E87.5 Hyperkalemia (principal) | CPT/HCPCS: 36415; 84132 ==

== ENCOUNTER → 2017-09-29 | Outpatient (CLI) | payer MEDICARE, OTHER ==
[2017-09-29 11:04] LABS: ABSOLUTE BASOPHILS # (AUTO) 0.1 10^3/uL (0.0-0.2); ABSOLUTE EOSINOPHILS # (AUTO) 0.2 10^3/uL (0.0-0.6); ABSOLUTE LYMPHOCYTES (AUTO) 2.3 10^3/uL (0.5-4.7); ABSOLUTE MONOCYTES (AUTO) 0.7 10^3/uL (0.1-1.4); ABSOLUTE NEUT (AUTO) 6.4 10^3/uL (1.7-8.2); BASOPHILS % (AUTO) 0.5 % (0-2); EOSINOPHILS % (AUTO) 2.4 % (0-6); HEMATOCRIT 28.3 % (36.0-47.0); HEMOGLOBIN 9.6 g/dL (12.0-15.5); LYMPHOCYTES % (AUTO) 24.2 % (13-45); MEAN CORPUSCULAR HEMOGLOBIN 28.8 pg (27.0-33.4); MEAN CORPUSCULAR HGB CONC 33.7 g/dL (32.0-36.0); MEAN CORPUSCULAR VOLUME 85 fl (80-97); MONOCYTES % (AUTO) 6.8 % (3-13); PLATELET COUNT 331 10^3/uL (150-450); RED BLOOD COUNT 3.32 10^6/uL (3.72-5.28); RED CELL DISTRIBUTION WIDTH 14.1 % (11.5-14.0); SEGMENTED NEUTROPHILS % (AUTO) 66.1 % (42-78); TOTAL CELLS COUNTED % (AUTO) 100 %; WHITE BLOOD COUNT 9.6 10^3/uL (4.0-10.5)
[2017-09-29 11:20] LABS: ALBUMIN 3.5 g/dL (3.5-5.0); ANION GAP 12 (5-19); BLOOD UREA NITROGEN 34 mg/dL (7-20); CALCIUM 9.6 mg/dL (8.4-10.2); CARBON DIOXIDE 18 mmol/L (22-30); CHLORIDE 111 mmol/L (98-107); GLUCOSE 224 mg/dL (75-110); IRON(TIBC) 56.7 ug/dL (37-170); PHOSPHORUS 4.6 mg/dL (2.5-4.5); POTASSIUM 5.3 mmol/L (3.6-5.0); SODIUM 140.6 mmol/L (137-145)
[2017-10-01 11:40] LABS: UR PRO/CREAT RATIO RESULT 8.6 mg/mg (0.0-0.2)
== END ==
LOC: OD 10:12
PROVIDERS: ATTEND Internal Medicine Nephrology
DX: N18.4 Chronic kidney disease, stage 4 (severe) (principal); D63.1 Anemia in chronic kidney disease; N25.81 Secondary hyperparathyroidism of renal origin; E55.9 Vitamin D deficiency, unspecified
CPT/HCPCS: 36415; 80048; 82040; 82306; 82570; 82728; 83540; 83550; 83970; 84100; 84156; 85025

== ENCOUNTER → 2017-10-21 | Outpatient (CLI) | payer MEDICARE, OTHER ==
[2017-10-21 11:52] LABS: ANION GAP 14 (5-19); BLOOD UREA NITROGEN 46 mg/dL (7-20); CALCIUM 9.1 mg/dL (8.4-10.2); CARBON DIOXIDE 14 mmol/L (22-30); CHLORIDE 115 mmol/L (98-107); GLUCOSE 163 mg/dL (75-110); POTASSIUM 5.7 mmol/L (3.6-5.0); SODIUM 142.9 mmol/L (137-145)
== END ==
LOC: OD 10:33
PROVIDERS: ATTEND Physician Assistant Surgical
DX: N18.4 Chronic kidney disease, stage 4 (severe) (principal)
CPT/HCPCS: 36415; 80048

== ENCOUNTER 2017-12-31 16:49 | Emergency (ER) | payer MEDICARE, OTHER ==
--- NOTE | 2017-12-31 19:35 | ER Document Report ---
ED General - General Chief Complaint: Abscess Stated Complaint: POSSIBLE ABSCESS Time Seen by Provider: 12/31/17 18:44 Cannot obtain history due to: Altered mental status Notes: Patient is a 67-year-old female with a past medical history of dialysis dependent end-stage renal disease, diabetes with insulin dependence, hypertension, recent left BKA, history of peripheral arterial disease who presents with multiple issues. History is as provided by the son at the bedside as the patient is quite lethargic, unable to provide history. Apparently this morning the patient's son noticed that there was an area of swelling underneath her right breast. He says that when he lifted the breast a large quantity of black, purulent material came from what appear to be an abscess under the right breast. This is what prompted him to contact EMS to bring patient to the hospital. He however states that he is quite concerned that the patient has been more lethargic than normal over the last 48-72 hours. He notes that her right foot has become increasingly necrotic in appearance over the last 2 weeks and that when she last saw her vascular surgeon 3 weeks ago only the toes were necrotic. He states that he is concerned that this is causing her increased lethargy as she was acting in this manner prior to amputation of her left lower extremity below the knee. She has not had fever. She has not seen her primary doctor. TRAVEL OUTSIDE OF THE [place] IN LAST 30 DAYS: No - Related Data Allergies/Adverse Reactions: latex [Latex] Allergy (Mild, Verified 12/31/17 17:56) RASH Penicillins Allergy (Mild, Verified 12/31/17 17:56) RASH, BREATHING DIFFICULTY codeine Allergy (Verified 12/31/17 17:56) heparin Allergy (Verified 12/31/17 17:56) Past Medical History - General Information source: Relative - Social History Smoking Status: Never Smoker Chew tobacco use (# tins/day): No Frequency of alcohol use: None Drug Abuse: None Lives with: Family Family History: CAD, COPD Patient has suicidal ideation: No Patient has homicidal ideation: No - Past Medical History Cardiac Medical History: Reports: Hx Hypertension Denies: Hx Atrial Fibrillation, Hx Congestive Heart Failure, Hx Heart Attack , Hx Peripheral Vascular Disease, Hx Pulmonary Embolism Pulmonary Medical History: Reports: Hx COPD Denies: Hx Asthma Neurological Medical History: Denies: Hx Cerebrovascular Accident, Hx Seizures Endocrine Medical History: Reports: Hx Diabetes Mellitus Type 2 Renal/ Medical History: Denies: Hx Peritoneal Dialysis GI Medical History: Denies: Hx Hepatitis, Hx Hiatal Hernia, Hx Ulcer Psychiatric Medical History: Reports: Hx Depression Infectious Medical History: Denies: Hx Hepatitis Past Surgical History: Reports: Hx Hysterectomy, Hx Orthopedic Surgery - L AKA. Denies: Hx Mastectomy, Hx Open Heart Surgery, Hx Pacemaker Review of Systems - Review of Systems -: Yes ROS unobtainable due to patient's medical condition Physical Exam - Vital signs Vitals: Temp Pulse Resp BP 97.8 F 80 18 124/50 L 12/31/17 16:58 12/31/17 16:58 12/31/17 16:58 12/31/17 16:58 Notes: PHYSICAL EXAMINATION: GENERAL: Somewhat lethargic, appears chronically ill but in no acute distress HEAD: Atraumatic, normocephalic. EYES: Pupils equal round and reactive to light, extraocular movements intact, sclera anicteric, conjunctiva are normal. ENT: nares patent, oropharynx clear without exudates. Moderately dry mucous membranes. NECK: Normal range of motion, supple without lymphadenopathy LUNGS: Breath sounds clear to auscultation bilaterally and equal. No wheezes rales or rhonchi. HEART: Regular rate and rhythm without murmurs ABDOMEN: Soft, nontender, normoactive bowel sounds. No guarding, no rebound. No masses appreciated. EXTREMITIES: Left BKA present, stump with seamus in place, appears to be very well healing. The right foot is necrotic diffusely over the plantar surface as well as all 5 digits of the foot. NEUROLOGICAL: No focal neurological deficits. Moves all extremities spontaneously and on command. PSYCH: Lethargic, oriented only to person SKIN: Warm, Dry, normal turgor, there is a 1 x 1 cm mostly drained abscess below the right mid breast Course - Re-evaluation Re-evalutation: 12/31/17 19:33 Presentation of a very complex 67-year-old patient. I did spend over 35 minutes at the patient's bedside discussing overall prognosis with her son. In summary this is a patient with end-stage renal disease with dialysis dependence , insulin dependent diabetes, peripheral arterial disease, left-sided BKA 3 weeks ago, now with a completely necrotic right foot and increasing confusion and lethargy. The patient also came in for a breast abscess on the right breast that drained at home. If complete incision and drainage was also performed at the bedside and packing placed. See procedure note. The patient' s vitals are within normal limits. The family is requesting transfer to [facility] as they report that the necrosis of the right foot has occurred rapidly and that is where her vascular surgeon is located. They also state that her current mental status is not her baseline. Patient is able to tell me her name but is not able to provide any additional details. Falls asleep mid sentence. Quite lethargic. Family is also concerned the patient struck her right knee at dialysis has been complaining of pain to the area since that time. There is no obvious deformity or swelling to the area. Will proceed with an x-ray of the right foot, right knee, labs, and then reevaluate the patient. 12/31/17 21:06 Patient's laboratories do not demonstrate any evidence of sepsis, normal lactate , there is no evidence of osteomyelitis or gas-forming infection on the x-ray of the right foot. The right knee does show some soft tissue swelling, likely the source of the patient's discomfort but no evidence of fracture. I have explained the results to the patient's son as well as the patient herself. At this point there is not appear to be any emergent indication for hospitalization or amputation of the right foot. I explained the family that they need to contact the vascular surgeon, evaluate for the possible need for a BKA. We have also discussed consideration of comfort measures at length. The patient has been started on doxycycline for coverage of MRSA in regards her right breast abscess. At this time will discharge with return precautions and follow-up recommendations. Verbal discharge instructions given a the bedside and opportunity for questions given. Medication warnings reviewed. Patient is in agreement with this plan and has verbalized understanding of return precautions and the need for primary care follow-up in the next 24-72 hours. - Vital Signs Vital signs: Temp Pulse Resp BP Pulse Ox 97.8 F 80 18 124/50 L 12/31/17 16:58 12/31/17 16:58 12/31/17 16:58 12/31/17 16:58 - Laboratory Result Diagrams: 12/31/17 19:45 12/31/17 19:45 Laboratory results interpreted by me: 12/31/17 12/31/17 19:45 19:45 RBC 2.90 L Hgb 8.1 L Hct 24.9 L RDW 17.6 H Creatinine 1.50 H Est GFR ( Amer) 42 L Est GFR (Non-Af Amer) 34 L Calcium 8.2 L Total Protein 5.1 L Albumin 2.2 L - Diagnostic Test Radiology reviewed: Image reviewed, Reports reviewed Radiology results interpreted by me: 12/31/17 21:13 Right knee x-ray: No acute fracture or dislocation Procedures - Incision and Drainage Right breast Type: Simple Anesthetic type: 1% Lidocaine Blade size: 11 I&D procedure: Betadine prep applied, Iodoform packing placed Incision Method: Incision made by scalpel Amount/type of drainage: 1 cc purulent material Critical Care Note - Critical Care Note Total time excluding time spent on procedures (mins): 38 Comments: Critical care time spent continuous at the bedside discussing treatment options with the family, physical assessment, review of old charts, review of laboratories and radiographic results. Discharge - Discharge Clinical Impression: Abscess of right breast, Right foot necrosis, Anemia of chronic disease Diabetes mellitus type II, controlled, with no complications Qualifiers: Diabetes mellitus nursing home insulin use: with nursing home use Qualified Code(s): E11.9 - Type 2 diabetes mellitus without complications; Z79.4 - [facility] ( current) use of insulin; Z79.4 - [facility] (current) use of insulin; Z79.4 - [employer] (current) use of insulin; Z79.4 - [facility] (current) use of insulin Condition: Stable Disposition: HOME, SELF-CARE Additional Instructions: You were seen for an abscess that required drainage. Please clean this area with soap and water twice daily and apply a topical antibiotic. Dress the area after each cleaning. Please return if you develop fever, vomiting, the pain at the site worsens, you notice spreading redness from the area, or you have any other symptoms that are concerning to you.. In regards to your necrotic right foot you do need to follow-up with your vascular surgeon regarding this issue. Your x-rays do not show any evidence of infection of the bone or soft tissues. Your labs do not suggest an infection with a normal white blood cell count. Your blood lactate is also normal. Your right leg pain is likely due to a small soft tissue contusion that he sustained at dialysis. Your x-ray does not show any fracture. Prescriptions: Doxycycline Hyclate 100 mg PO BID #14 capsule Referrals: SHELBY RAYA MD [Primary Care Provider] - Follow up tomorrow
[2017-12-31 20:03] LABS: ABSOLUTE BASOPHILS # (AUTO) 0.1 10^3/uL (0.0-0.2); ABSOLUTE EOSINOPHILS # (AUTO) 0.3 10^3/uL (0.0-0.6); ABSOLUTE LYMPHOCYTES (AUTO) 2.1 10^3/uL (0.5-4.7); ABSOLUTE MONOCYTES (AUTO) 0.9 10^3/uL (0.1-1.4); ABSOLUTE NEUT (AUTO) 7.1 10^3/uL (1.7-8.2); BASOPHILS % (AUTO) 0.6 % (0-2); EOSINOPHILS % (AUTO) 3.1 % (0-6); HEMATOCRIT 24.9 % (36.0-47.0); HEMOGLOBIN 8.1 g/dL (12.0-15.5); LYMPHOCYTES % (AUTO) 20.4 % (13-45); MEAN CORPUSCULAR HEMOGLOBIN 28.1 pg (27.0-33.4); MEAN CORPUSCULAR HGB CONC 32.8 g/dL (32.0-36.0); MEAN CORPUSCULAR VOLUME 86 fl (80-97); MONOCYTES % (AUTO) 8.2 % (3-13); PLATELET COUNT 369 10^3/uL (150-450); RED CELL DISTRIBUTION WIDTH 17.6 % (11.5-14.0); SEGMENTED NEUTROPHILS % (AUTO) 67.7 % (42-78); TOTAL CELLS COUNTED % (AUTO) 100 %; WHITE BLOOD COUNT 10.4 10^3/uL (4.0-10.5)
[2017-12-31 20:22] LABS: ALANINE AMINOTRANSFERASE 19 U/L (9-52); ALBUMIN 2.2 g/dL (3.5-5.0); ALKALINE PHOSPHATASE 123 U/L (38-126); ANION GAP 9 (5-19); ASPARTATE AMINO TRANSFERASE 22 U/L (14-36); BILIRUBIN,DIRECT 0.3 mg/dL (0.0-0.4); BILIRUBIN,TOTAL 0.7 mg/dL (0.2-1.3); BLOOD UREA NITROGEN 10 mg/dL (7-20); CALCIUM 8.2 mg/dL (8.4-10.2); CARBON DIOXIDE 30 mmol/L (22-30); CHLORIDE 99 mmol/L (98-107); GLUCOSE 89 mg/dL (75-110); TOTAL PROTEIN 5.1 g/dL (6.3-8.2)
--- NOTE | 2017-12-31 21:00 | RADIOLOGY REPORT (SQ) ---
EXAM DESCRIPTION: FOOT RIGHT COMPLETE COMPLETED DATE/TIME: 12/31/2017 8:12 pm REASON FOR STUDY: black foot COMPARISON: None. NUMBER OF VIEWS: Three views. TECHNIQUE: AP, lateral and oblique radiographic images acquired of the right foot. LIMITATIONS: None. FINDINGS: MINERALIZATION: Osteopenia. BONES: Chronic fracture deformity of the 5th metatarsal. No acute fracture. Os naviculare present. Plantar calcaneal and Achilles enthesophytes. No erosions. JOINTS: Mild diffuse interphalangeal joint space narrowing. SOFT TISSUES: Mild soft tissue swelling of the hindfoot. No foreign body. No dissecting subcutaneou s gas. OTHER: No other significant finding. IMPRESSION: 1. Mild soft tissue swelling of the hindfoot. No radiographic findings of active osteomyelitis. 2. Diffuse osteopenia. TECHNICAL DOCUMENTATION: JOB ID: [id number] [employer]- All Rights Reserved Reading location - IP/workstation name: [email or web address]
--- NOTE | 2017-12-31 21:02 | RADIOLOGY REPORT (SQ) ---
EXAM DESCRIPTION: KNEE RIGHT 3 VIEWS COMPLETED DATE/TIME: 12/31/2017 8:13 pm REASON FOR STUDY: pain post-trauma COMPARISON: None. NUMBER OF VIEWS: Four views. TECHNIQUE: AP, lateral, and both oblique radiographic images acquired of the right knee. LIMITATIONS: None. FINDINGS: MINERALIZATION: Osteopenia. BONES: No acute fracture or dislocation. No worrisome bone lesions. JOINT: Small suprapatellar joint effusion. SOFT TISSUES: No soft tissue swelling. No radio-opaque foreign body.Mild soft tissue swelling of the medial right knee. Mild scattered vascular calcifications. OTHER: None IMPRESSION: Small suprapatellar knee joint effusion with mild soft tissue swelling of the medial rig ht knee. No acute fracture or dislocation. TECHNICAL DOCUMENTATION: JOB ID: [id number] [employer]- All Rights Reserved Reading location - IP/workstation name: [email or web address]
[2017-12-31] MEDS ORDERED: DOXYCYCLINE HYCLATE 100 MG TABLET PO ONE (21:09)
[2017-12-31] MEDS ORDERED: ACETAMINOPHEN 325 MG TABLET PO ONE (21:13)
[2017-12-31 22:51] VITALS: BP 122/44
== END 2017-12-31 22:53 | disposition home or self-care (01) ==
LOC: ER 16:49
DX: N61.1 Abscess of the breast and nipple (principal); E11.52 Type 2 diabetes mellitus with diabetic peripheral angiopathy with gangrene; E11.65 Type 2 diabetes mellitus with hyperglycemia; I96 Gangrene, not elsewhere classified; R53.83 Other fatigue; Z79.4 Long term (current) use of insulin; I12.0 Hypertensive chronic kidney disease with stage 5 chronic kidney disease or end stage renal disease; E11.22 Type 2 diabetes mellitus with diabetic chronic kidney disease; N18.6 End stage renal disease; D63.1 Anemia in chronic kidney disease; Z99.2 Dependence on renal dialysis; Z89.512 Acquired absence of left leg below knee; Z91.040 Latex allergy status; Z88.0 Allergy status to penicillin; Z88.6 Allergy status to analgesic agent; Z90.710 Acquired absence of both cervix and uterus
CPT/HCPCS: 99291; 36415; 87040; 83605; 85025; 80053; 73630; 73562; 10060; A6266; A9270 ×2

== ENCOUNTER 2018-01-24 22:51 | Emergency (ER) | payer MEDICARE, OTHER ==
[2018-01-25] MEDS ORDERED: HYDROCODONE/ACETAMINOPHEN 5-325 MG (6 TAB/ER DISP) PO PRN (00:35)
--- NOTE | 2018-01-25 00:35 | ER Document Report ---
ED Extremity Problem, Lower - General Chief Complaint: Leg Pain Stated Complaint: LEG PAIN Time Seen by Provider: 01/24/18 23:27 Mode of Arrival: Medic Information source: Patient, Relative, Emergency Med Personnel TRAVEL OUTSIDE OF THE [place] IN LAST 30 DAYS: No - HPI Patient complains to provider of: Other - 67-year-old female status post a right -sided AKA with pain which worsened tonight in the setting of having run out of her home hydrocodone postoperatively. She is scheduled to be seen in surgery clinic tomorrow for a wound check and staple removal. Denies urinary symptoms at this time, she and her family note that the major concern is pain control they deny any fevers chills other injuries do note a small bit of skin breakdown over her buttocks because she is essentially now entirely bedbound. She is on dialysis and has not missed any sessions they have no concerns at this time family notes that they do not wish to pursue any aggressive workup if available and that if we are able to control pain they have no further concerns. Currently the patient notes that while in route to the hospital she was given medicine and currently has no complaints. - Related Data Allergies/Adverse Reactions: latex [Latex] Allergy (Mild, Verified 12/31/17 17:56) RASH Penicillins Allergy (Mild, Verified 12/31/17 17:56) RASH, BREATHING DIFFICULTY codeine Allergy (Verified 12/31/17 17:56) heparin Allergy (Verified 12/31/17 17:56) Home Medications: atorvastatin, torsemide, vit D, virt-caps, gabapentin, clonidine, cyclobenzaprine, clopidogrel, mag-oxide, metoprolol Past Medical History - General Information source: Patient, Relative, Emergency Med Personnel - Social History Smoking Status: Former Smoker Family History: CAD, COPD - Past Medical History Cardiac Medical History: Reports: Hx Hypertension Denies: Hx Atrial Fibrillation, Hx Congestive Heart Failure, Hx Heart Attack , Hx Peripheral Vascular Disease, Hx Pulmonary Embolism Pulmonary Medical History: Reports: Hx COPD Denies: Hx Asthma Neurological Medical History: Denies: Hx Cerebrovascular Accident, Hx Seizures Endocrine Medical History: Reports: Hx Diabetes Mellitus Type 2 Renal/ Medical History: Denies: Hx Peritoneal Dialysis GI Medical History: Denies: Hx Hepatitis, Hx Hiatal Hernia, Hx Ulcer Psychiatric Medical History: Reports: Hx Depression Infectious Medical History: Denies: Hx Hepatitis Past Surgical History: Reports: Hx Hysterectomy, Hx Orthopedic Surgery - L AKA. Denies: Hx Mastectomy, Hx Open Heart Surgery, Hx Pacemaker Review of Systems - Review of Systems -: Yes All other systems reviewed and negative Physical Exam - Vital signs Vitals: Resp BP 15 168/73 H 01/24/18 23:01 01/24/18 23:01 - General General appearance: Alert In distress: None - HEENT Head: Normocephalic, Atraumatic Eyes: Normal Pupils: PERRL - Respiratory Respiratory status: No respiratory distress Chest status: Nontender Breath sounds: Normal Chest palpation: Normal - Cardiovascular Rhythm: Regular Heart sounds: Normal auscultation Murmur: No - Abdominal Inspection: Normal Distension: No distension Bowel sounds: Normal Tenderness: Nontender Organomegaly: No organomegaly - Back Back: Normal, Nontender - Extremities General upper extremity: Normal inspection, Nontender, Normal color, Normal ROM , Normal temperature General lower extremity: Other - 311 P left-sided BKA Right-sided AKA, well approximated stump incision line with seamus no obvious underlying fluctuance or erythema - Neurological Neuro grossly intact: Yes Cognition: Normal Orientation: AAOx4 Robbie Coma Scale Eye Opening: Spontaneous Dillon Coma Scale Verbal: Oriented Dillon Coma Scale Motor: Obeys Commands Robbie Coma Scale Total: 15 Speech: Normal Cranial nerves: Normal Motor strength normal: RUE - Psychological Associated symptoms: Flat affect Course - Re-evaluation Re-evalutation: 01/25/18 04:52 67-year-old woman status post AKA on the right side who comes in for pain control issues at home. Ran out of her home narcotic medications, she is scheduled to see her primary surgeon tomorrow morning at approximately 9 AM. He has no secondary complaints at this time no systemic signs of infection. Family notes that they do not wish to pursue any aggressive workup if at all avoidable, because this patient is well-appearing overall will plan for administration of analgesia in the emergency department, 6 pills of [place] to take home and hand such that they are able to help control her pain until she is able to be seen in clinic with a brief prescription thereafter. They are given return precautions, she was subsequently transported by ambulance home. - Vital Signs Vital signs: Temp Pulse Resp BP Pulse Ox 17 145/66 H 94 01/25/18 03:01 01/25/18 03:01 01/25/18 03:01 Discharge - Discharge Clinical Impression: Leg pain Qualifiers: Laterality: right Qualified Code(s): M79.604 - Pain in right leg Condition: Good Disposition: HOME, SELF-CARE Prescriptions: Hydrocodone/Acetaminophen [[place] 5-325 mg Tablet] 1 tab PO Q8H PRN 3 Days #8 tablet PRN Reason: For Pain Scale 4-5 Referrals: SHELBY RAYA MD [Primary Care Provider] - Follow up as needed
[2018-01-25 03:13] VITALS: BP 145/66
== END 2018-01-25 03:24 | disposition home or self-care (01) ==
LOC: ER 22:51
DX: M79.604 Pain in right leg (principal); Z89.611 Acquired absence of right leg above knee; Z99.2 Dependence on renal dialysis; Z79.899 Other long term (current) drug therapy; I10 Essential (primary) hypertension; J44.9 Chronic obstructive pulmonary disease, unspecified; E11.9 Type 2 diabetes mellitus without complications
CPT/HCPCS: 99283; A9270

== ENCOUNTER → 2018-02-17 | Outpatient (CLI) | payer MEDICARE, OTHER | LOC: OD 10:49 | PROVIDERS: ATTEND Internal Medicine Nephrology | DX: Z53.9 Procedure and treatment not carried out, unspecified reason (principal); N18.6 End stage renal disease ==

== ENCOUNTER → 2018-02-23 | Outpatient (CLI) | payer MEDICARE, OTHER ==
[2018-02-23 11:41] LABS: ANION GAP 9 (5-19); BLOOD UREA NITROGEN 44 mg/dL (7-20); CALCIUM 8.4 mg/dL (8.4-10.2); CARBON DIOXIDE 18 mmol/L (22-30); CHLORIDE 112 mmol/L (98-107); GLUCOSE 58 mg/dL (75-110); SODIUM 139.4 mmol/L (137-145)
--- NOTE | 2018-02-23 11:51 | RADIOLOGY REPORT (SQ) ---
EXAM DESCRIPTION: CHEST SINGLE VIEW COMPLETED DATE/TIME: 02/23/2018 11:24 am REASON FOR STUDY: HYPOXEMIA COMPARISON: None. EXAM PARAMETERS: NUMBER OF VIEWS: One view. TECHNIQUE: Single frontal radiographic view of the chest acquired. RADIATION DOSE: NA LIMITATIONS: None. FINDINGS: LUNGS AND PLEURA: No focal consolidation. Mild Basilar predominant interstitial opacities and Filippo B-lines. No significant pleural effusion. No pneumothorax. MEDIASTINUM AND HILAR STRUCTURES: No masses. Contour normal. HEART AND VASCULAR STRUCTURES: Heart normal in size. Normal vasculature. BONES: Decreased mineralization. No acute findings. HARDWARE: Right internal jugular central venous hemodialysis catheter with tip at right atrium. OTHER: No other significant finding. IMPRESSION: Likely mild interstitial edema. Right IJ hemodialysis catheter with tip at right atrium. TECHNICAL DOCUMENTATION: JOB ID: [id number] [email or web address]- All Rights Reserved Reading location - IP/workstation name: [email or web address]
== END ==
LOC: OD 10:39
PROVIDERS: ATTEND Family Medicine
DX: N18.6 End stage renal disease (principal); R09.02 Hypoxemia
CPT/HCPCS: 36415; 71045; 80048

== ENCOUNTER 2018-03-10 12:08 | Emergency (ER) | payer MEDICARE, OTHER ==
[~2018-03-10 12:08] MED LIST: ROCURONIUM BROMIDE INJ 50 MG/5 ML VIAL IV ONE
[2018-03-10] MEDS ORDERED: ETOMIDATE INJ/PF 20 MG/10 ML SDV IV ONE ×2 (12:21→12:23)
[2018-03-10 12:22] LABS: PARTIAL THROMBOPLASTIN TIME 40.8 SEC (23.5-35.8)
[2018-03-10] MEDS ORDERED: ROCURONIUM BROMIDE INJ 50 MG/5 ML VIAL IV ONE (12:23)
[2018-03-10 12:24] LABS: ABSOLUTE BASOPHILS # (AUTO) 0.1 10^3/uL (0.0-0.2); ABSOLUTE EOSINOPHILS # (AUTO) 0.2 10^3/uL (0.0-0.6); ABSOLUTE LYMPHOCYTES (AUTO) 2.2 10^3/uL (0.5-4.7); ABSOLUTE NEUT (AUTO) 8.8 10^3/uL (1.7-8.2); BASOPHILS % (AUTO) 0.9 % (0-2); EOSINOPHILS % (AUTO) 1.4 % (0-6); HEMATOCRIT 25.1 % (36.0-47.0); INTERNATIONAL RATION (INR) 0.95; LYMPHOCYTES % (AUTO) 17.9 % (13-45); MEAN CORPUSCULAR HEMOGLOBIN 27.4 pg (27.0-33.4); MEAN CORPUSCULAR HGB CONC 31.2 g/dL (32.0-36.0); MEAN CORPUSCULAR VOLUME 88 fl (80-97); PLATELET COUNT 307 10^3/uL (150-450); PROTHROMBIN TIME 13.2 SEC (11.4-15.4); RED BLOOD COUNT 2.87 10^6/uL (3.72-5.28); RED CELL DISTRIBUTION WIDTH 19.2 % (11.5-14.0); SEGMENTED NEUTROPHILS % (AUTO) 71.8 % (42-78); TOTAL CELLS COUNTED % (AUTO) 100 %; WHITE BLOOD COUNT 12.2 10^3/uL (4.0-10.5)
[2018-03-10 12:25] LABS: HEMOGLOBIN 7.9 g/dL (12.0-15.5)
--- NOTE | 2018-03-10 12:27 | RADIOLOGY REPORT (SQ) ---
EXAM DESCRIPTION: CT HEAD WITHOUT COMPLETED DATE/TIME: 03/10/2018 12:16 pm REASON FOR STUDY: bed 9 stroke alert COMPARISON: None. TECHNIQUE: Axial images acquired through the brain without intravenous contrast. Images reviewed wi th bone, brain and subdural windows. Additional sagittal and coronal reconstructions were generated. Images stored on PACS. All CT scanners at this facility use dose modulation, iterative reconstruction, and/or weight based d osing when appropriate to reduce radiation dose to as low as reasonably achievable (ALARA). [facility]: Dose Right [facility]: CareDose [facility]: Dose Right [facility]: Teradose 4D [facility]: [facility]gate RADIATION DOSE: CT Rad equipment meets quality standard of care and radiation dose reduction techniq ues were employed. CTDIvol: 53.2 mGy. DLP: 991 mGy-cm. mGy. LIMITATIONS: None. FINDINGS: VENTRICLES: Normal size and contour. CEREBRUM: No CT evidence of acute large territory ischemic change. No acute intracranial hemorrhage, mass effect, or midline shift. There is extensive small vessel ischemic change, with multiple lacun ar infarcts in the right and left thalamus and bilateral deep periventricular white matter. CEREBELLUM: No masses. No hemorrhage. No alteration of density. No evidence for acute infarction. EXTRAAXIAL SPACES: No fluid collections. No masses. ORBITS AND GLOBE: No intra- or extraconal masses. Normal contour of globe without masses. CALVARIUM: No fracture. PARANASAL SINUSES: No fluid or mucosal thickening. SOFT TISSUES: No mass or hematoma. OTHER: No other significant finding. 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 No acute findings. EVIDENCE OF ACUTE STROKE: NO. COMMENT: Pertinent findings on the imaging study reported as a CRITICAL RESULT to Dr Diamond Llamas at12:14 on 03/10/2018. Category of Critical Result: CT code stroke Quality ID # [id number]: Final reports with documentation of one or more dose reduction techniques (e.g., Au tomated exposure control, adjustment of the mA and/or kV according to patient size, use of iterative reconstruction technique) TECHNICAL DOCUMENTATION: JOB ID: [id number] [employer]- All Rights Reserved Reading location - IP/workstation name: [email or web address] [email or web address]
--- NOTE | 2018-03-10 12:36 | ER Document Report ---
ED General - General Stated Complaint: UNRESPONSIVE Time Seen by Provider: 03/10/18 12:22 Notes: Patient is a 67-year-old female with history of CVA, renal disease, and severe peripheral vascular disease that presents to the emergency department for chief complaint of unresponsiveness. History obtained from patient's who is at bedside, he states that around 930 last night as on the last time he saw the patient normal, she was talking at that time and conversant, and seemed normal. He states this morning around 8:30 in the morning he woke up and checked on her she was snoring, did not think much of it, went to do his normal morning routine, then around 11 AM she was checked on again, and he could not wake her up, he said he tapped her face, and she was not responding, and was snoring, at that point he called 911. She does have a history of a stroke in the past, with residual right-sided deficits, but she was talking, and functioning afterwards. She does have significant comorbidities including severe peripheral vascular disease, hypertension, hyperlipidemia and chronic kidney disease, he states she was temporarily on dialysis, but that was stopped approximately 3 weeks ago, because she was making urine. She did have relatively recent jaazj-rjd-[id number] amputation on the right, and below the knee amputation on the left. The patient's as far as he is aware does not think the patient has had any fever, chills, chest pain or shortness of breath or difficulty breathing she has not had any nausea or vomiting. Past Medical History: CVA, chronic kidney disease, severe peripheral vascular disease, hypertension, hyperlipidemia, sacral decubitus ulcers Past Surgical History: Right lfkne-spa-hiod amputation, left below the knee amp utation Social History: Smoker, denies alcohol or drug use. Family History: Reviewed and noncontributory for presenting illness Allergies: Reviewed, see documented allergy list. REVIEW OF SYSTEMS: Other than noted above, the 12 point review of systems was reviewed with the patient and were negative, all pertinent findings are included in the HPI. PHYSICAL EXAMINATION: Vital signs reviewed, nursing noted reviewed. GENERAL: Elderly, chronically ill appearing female, obtunded HEAD: Atraumatic, normocephalic. EYES: Pupils are nonreactive, appears to be a partial gaze palsy to the right, patient unable to look to the left, corneal reflex intact ENT: nares patent, copious oral secretions NECK: supple without lymphadenopathy LUNGS: Rhonchorous lung sounds, no acute respiratory distress, but patient not protecting airway HEART: Regular rate and rhythm without murmurs ABDOMEN: Soft, normoactive bowel sounds. No rebound, guarding, or rigidity. No masses appreciated. EXTREMITIES: Left below the knee amputation, right rdiil-fcs-zlno amputation. The right upper extremity has flexion contractures, from prior CVA, the left upper extremity, has minimal movement, patient will grab hand, but not purposely. NEUROLOGICAL: GCS: 6, eyes open, minimal response to noxious stimuli in 1 limb, no verbal response. Contracture of the right upper extremity PSYCH: Unresponsive SKIN: Warm, Dry, normal turgor, sacral decubitus ulcer TRAVEL OUTSIDE OF THE [place] IN LAST 30 DAYS: No - Related Data Allergies/Adverse Reactions: latex [Latex] Allergy (Mild, Verified 12/31/17 17:56) RASH Penicillins Allergy (Mild, Verified 12/31/17 17:56) RASH, BREATHING DIFFICULTY codeine Allergy (Verified 12/31/17 17:56) heparin Allergy (Verified 12/31/17 17:56) Past Medical History - Social History Smoking Status: Current Every Day Smoker Family History: CAD, COPD - Past Medical History Cardiac Medical History: Reports: Hx Hypertension Denies: Hx Atrial Fibrillation, Hx Congestive Heart Failure, Hx Heart Attack, Hx Peripheral Vascular Disease, Hx Pulmonary Embolism Pulmonary Medical History: Reports: Hx COPD Denies: Hx Asthma Neurological Medical History: Denies: Hx Cerebrovascular Accident, Hx Seizures Endocrine Medical History: Reports: Hx Diabetes Mellitus Type 2 Renal/ Medical History: Denies: Hx Peritoneal Dialysis GI Medical History: Denies: Hx Hepatitis, Hx Hiatal Hernia, Hx Ulcer Psychiatric Medical History: Reports: Hx Depression Infectious Medical History: Denies: Hx Hepatitis Past Surgical History: Reports: Hx Hysterectomy, Hx Orthopedic Surgery - L AKA. Denies: Hx Mastectomy, Hx Open Heart Surgery, Hx Pacemaker Physical Exam - Vital signs Vitals: Resp Pulse Ox 17 100 03/10/18 12:17 03/10/18 12:17 Course - Re-evaluation Re-evalutation: Patient seen and examined vital signs reviewed. Laboratory data and imaging were ordered as appropriate for the patient's presenting symptoms and complaint, with consideration of any critical or life threatening conditions that may be associated with their obtained history and exam as noted above. Patient was initially seen, noted to be obtunded, taken to CT scan, she was requiring nonrebreather, she was hypoxic by EMS, 85% on room air. CT scan was reviewed, no acute stroke, demonstrated previous lacunar stroke. Patient was not maintaining her airway, and a GCS of 6, at this point I decided to intubate the patient using RSI, as noted, no complications, blood work and urine testing was ordered, patient was noted to have a metabolic acidosis, and she did have renal insufficiency, which was near her baseline chronic kidney disease creatinine, and BUN, she did have a mild hyperkalemia of 5.9, she was given IV sodium bicarbonate, IV insulin 10 units with IV dextrose, as well as a liter of IV fluids. Patient's ventilatory settings were corrected after ABG was obtained, decrease her rate from 12-8 initially, and then back up to 10. Patient was maintained on a very low dose of propofol, for sedation. She remained hemodynamically stable, her blood pressure remained in the 130s systolic, heart rate low 100s, pulse ox 96% on 40% FiO2 on the ventilator. The patient was re-evaluated and was stable on the ventilator Evaluation was most consistent with acute CVA, unfortunate this patient is awake CVA, and would not be a TPA candidate, she is out of the therapeutic window for systemic intravenous alteplase, I did discuss this with the patient's , her altered mental status and encephalopathy, could be secondary to her renal failure, although her numbers are not terribly off than her recent blood work about a week and a half ago. Urinalysis pending, patient was not making much urine in the ED, however the patient's stated that they drained about 900 mL's prior to ED arrival from her Carrillo catheter. I discussed with the , poor prognosis, she may have a reversible metabolic cause of her encephalopathy, versus having a devastating CVA, resulting in her comatose state that she is currently in he understood this, she does have chronic conditions, and has been in a rather difficult state over the last several years since her initial stroke. I again spoke with the patients at length her current state and that she will need ICU care and correction of metabolic abnormalities and ultimately prognosis cannot be completely determined at this time. He understood and will plan on driving to [facility] to meet her when she arrives. Results were discussed with the patient at this point after careful cons ideration I feel that that patient should be transferred to [facility] due to acute CVA, metabolic encephalopathy, acute respiratory failure. This was discussed with the patient that it is in the best interest for their care to be transferred, the risks and benefits of transfer were discussed, including but not limited to clinical deterioration during transport, respiratory distress, and potential for traumatic injuries. Patient agreed with this plan of care. *Note is created using voice recognition software and may contain spelling, syntax or grammatical errors. Laboratory 03/10/18 03/10/18 03/10/18 11:50 11:50 11:50 WBC 12.2 H RBC 2.87 L Hgb 7.9 L Hct 25.1 L MCV 88 MCH 27.4 MCHC 31.2 L RDW 19.2 H Plt Count 307 Seg Neutrophils % 71.8 Lymphocytes % 17.9 Monocytes % 8.0 Eosinophils % 1.4 Basophils % 0.9 Absolute Neutrophils 8.8 H Absolute Lymphocytes 2.2 Absolute Monocytes 1.0 Absolute Eosinophils 0.2 Absolute Basophils 0.1 PT 13.2 INR 0.95 APTT 40.8 H Carbonic Acid HCO3/H2CO3 Ratio ABG pH ABG pCO2 ABG pO2 ABG HCO3 ABG Total CO2 ABG O2 Saturation ABG Base Excess FiO2 Sodium 140.8 Potassium 5.9 H Chloride 117 H Carbon Dioxide 18 L Anion Gap 6 BUN 52 H Creatinine 2.87 H Est GFR ( Amer) 20 L Est GFR (Non-Af Amer) 16 L Glucose 85 Lactic Acid Calcium 8.4 Total Bilirubin 0.4 Direct Bilirubin 0.4 Neonat Total Bilirubin Not Reportable Neonat Direct Bilirubin Not Reportable Neonat Indirect Bili Not Reportable AST 59 H ALT 20 Alkaline Phosphatase 261 H Creatine Kinase 34 CK-MB (CK-2) Troponin I Total Protein 5.5 L Albumin 2.1 L 03/10/18 03/10/18 03/10/18 11:50 13:35 14:05 WBC RBC Hgb Hct MCV MCH MCHC RDW Plt Count Seg Neutrophils % Lymphocytes % Monocytes % Eosinophils % Basophils % Absolute Neutrophils Absolute Lymphocytes Absolute Monocytes Absolute Eosinophils Absolute Basophils PT INR APTT Carbonic Acid 1.07 HCO3/H2CO3 Ratio 13:1 ABG pH 7.24 L ABG pCO2 35.6 ABG pO2 80.6 ABG HCO3 14.8 L ABG Total CO2 15.9 L ABG O2 Saturation 94.0 ABG Base Excess -11.7 FiO2 50% Sodium Potassium Chloride Carbon Dioxide Anion Gap BUN Creatinine Est GFR ( Amer) Est GFR (Non-Af Amer) Glucose Lactic Acid 0.9 Calcium Total Bilirubin Direct Bilirubin Neonat Total Bilirubin Neonat Direct Bilirubin Neonat Indirect Bili AST ALT Alkaline Phosphatase Creatine Kinase CK-MB (CK-2) 1.35 Troponin I 0.031 Total Protein Albumin Chest X-Ray 03/10/18 12:09 IMPRESSION: LIFE LINES DESCRIBED IN SATISFACTORY POSITION. Head CT 03/10/18 12:09 IMPRESSION: Chronic white matter disease with old right and left alignment lacunar infarcts. No acute findings. EVIDENCE OF ACUTE STROKE: NO. 03/10/18 20:03 - Vital Signs Vital signs: Temp Pulse Resp BP Pulse Ox 99.3 F 100 18 156/68 H 97 03/10/18 18:33 03/10/18 18:33 03/10/18 18:33 03/10/18 18:33 03/10/18 18:33 - Laboratory Result Diagrams: 03/10/18 11:50 03/10/18 11:50 Laboratory results interpreted by me: 03/10/18 03/10/18 03/10/18 11:50 11:50 11:50 WBC 12.2 H RBC 2.87 L Hgb 7.9 L Hct 25.1 L MCHC 31.2 L RDW 19.2 H Absolute Neutrophils 8.8 H APTT 40.8 H ABG pH ABG HCO3 ABG Total CO2 Potassium 5.9 H Chloride 117 H Carbon Dioxide 18 L BUN 52 H Creatinine 2.87 H Est GFR ( Amer) 20 L Est GFR (Non-Af Amer) 16 L AST 59 H Alkaline Phosphatase 261 H Total Protein 5.5 L Albumin 2.1 L Urine Protein Urine Blood Ur Leukocyte Esterase 03/10/18 03/10/18 14:05 17:05 WBC RBC Hgb Hct MCHC RDW Absolute Neutrophils APTT ABG pH 7.24 L ABG HCO3 14.8 L ABG Total CO2 15.9 L Potassium Chloride Carbon Dioxide BUN Creatinine Est GFR ( Amer) Est GFR (Non-Af Amer) AST Alkaline Phosphatase Total Protein Albumin Urine Protein 100 H Urine Blood MODERATE H Ur Leukocyte Esterase LARGE H Procedures - Intubation Orotracheal Airway evaluation: Large tongue Mallampati Classification: Class 3 Medications: Etomidate - 15mg, Other - Rocuronium 75mg Intubation method: Orotracheal Blade size: 4 Equipment used: Glidescope ETT size: 7.5 ETT secured at: Lips ETT secured at (cm): 23 Breath Sounds after Intubation: Equal End tidal CO2 confirmed: Yes Ventilator settings: SIMV Tidal volume: 450 FiO2: 40 Respirations: 12 PEEP: 5 Post Intubation Xray: Yes Intubation Complications: No complications Critical Care Note - Critical Care Note Total time excluding time spent on procedures (mins): 78 Comments: Critical care time 78 minutes exclusive from separate billable procedures for a patient requiring complex medical decision making, and high potential for clinical deterioration. In a patient with acute encephalopathy, obtunded, requiring intubation, ventilator management, and correction of her metabolic abnormalities. Time spent obtaining history from patient or surrogate, discussions with consultants, development of treatment plan with patient or surrogate, evaluation of patient's response to treatment, examination of patient, ordering and performing treatments and interventions, ordering and review of laboratory studies, re-evaluation of patient's condition, ordering and review of radiographic studies and review of old charts Discharge - Discharge Clinical Impression: Aphasia, Hyperkalemia, Acute CVA (cerebrovascular accident), Metabolic acidosis, Renal insufficiency Altered mental status Qualifiers: Altered mental status type: unspecified Qualified Code(s): R41.82 - Altered mental status, unspecified Leukocytosis Qualifiers: Leukocytosis type: unspecified Qualified Code(s): D72.829 - Elevated white blood cell count, unspecified Condition: Serious Disposition: [facility] Referrals: SHELBY RAYA MD [Primary Care Provider] - Follow up as needed ED [employer]te[employer]/Exc Criteria - Inclusion Criteria: 1: Patient presented to ED within 3 hours of acute ischemic stroke symptom onset? -: No - Last known normal was 9:30PM 03/09/2018 2: Did baseline CT exclude intracranial hemorrhage and/or other risk factors? -: Yes 3: Is the age of the patient 18 years of age or greater? -: Yes : If any of the above questions are answered "NO" then stop, patient is not a candidate for Alteplase, : If all of the above questions are answered "YES" then continue with Exclusion Criteria. - Exclusion Criteria: 1: Is there evidence of intracranial hemorrhage on baseline CT? 2: Is there suspicion of subarachnoid hemorrhage (even if CT negative)? 3: Is there a history of serious head trauma, recent previous stroke or SC within 3 months? 4: Does the patient have a clinical presentation consistent with SC or post-SC pericarditis? 5: Is there history of intracranial hemorrhage? 6: On repeated measurement is Systolic BP greater than 185mmHg or Diastolic BP greater that 110 mmHg and is aggressive treatment needed to reduce blood pressure to these limits (e.g. constant infusion of an anti-hypertensive)? 7: Did the patient awake with stroke symptoms? 8: Has the patient had a lumbar puncture or an arterial puncture at a non- compressile site within 7 days? 9: With in the last 14 days did the patient have surgery or major trauma? 10: Is the patient or less than 2 weeks? 11: Was there any active bleeding or acute trauma? 12: Does the patient have intracranial neoplasm, arteriovenous malformation or aneurysm? 13: Does the patient have abnormal glucose (less than 50 or greater than 400mg/dl)? Record glucose in Comment. 14: Patient has rapidly improving symptoms at the time Alteplase is to be Administered. 15: Does the patient have any risks for bleeding, including but not limited to: a.: Current use of Coumadin with PT greater than 15 seconds or INR greater than 1.7. b.: Current use of Pradaxa (Dabigatran). c.: Heparin administereed within the past 48 hours and PTT elevated. d.: Platelet count less than 100,000/mm. e.: Major surgery or serious trauma within 14 days. f.: Gastrointestinal or gynecological urinary bleeding within 14 days. g.: Myocardial Infarction (SC) within 3 months. : If the answer to any of the above questions is "YES" then stop, the patient is not a candidate for Alteplase. : If the answer to all of the above questions is "NO" then the patient may be eligible for the Administration of Alteplase. : If the patient is noted to have seizure activity at onset of Stroke symptoms; Consult Neurologist for further evaluation. - The patient is: -: Included and is eligible to receive Alteplase. *Initiate bed placement at higher level of care* --: No Reviewed risks & benefits of thrombolytic therapy: I have reviewed the risks and benefits of thrombolytic therapy with the patient and/or his/her family. -: Excluded and not eligible to receive Alteplase for the above exclusions. --: Yes -: Excluded and not eligible to receive Alteplase for other reasons (specify in comments): - Diagnosis of TIA: -: Patient presented with transient symptoms that are now resolved and no other neurologic findings are currently present. List symptoms in comments. -: Patient is NOT a candidate for tPA. -: ____(put name in comment) has been consulted for admission and continued evaluation of risk factor assessment. Comment: Patient not a tPA candidate due to last known normal at 930PM on 03/09/2018. ED NIH Stroke Scale - NIH Stroke Scale When completed:: Protocol - Stroke symptoms, last known normal 930PM on 03/09/2018 *: 1. NIH scale should be completed with appropriate accompanying assessment tools. *: 2. The NIH should reflect what the patient is capable of doing and should not be coached by the clinician. 1a. Level of Consciousness: 0=Alert;keenly responsive -: 1=Drowsy -: 2=Obtunded -: 3=Coma/unresponsive or reflex to noxious stimuli. 1a. Responses: 3 1b. Orientation Questions: a. What month is it? -: b. How old are you? -: 0=Answers both questions correctly. -: 1=Answers one question correctly or patient is intubated or has orotracheal trauma. -: 2=Answers neither question correctly. 1b. Responses: 2 1c. Response to commands: a. Open and close eyes? -: b. Automotive Consultant and release hand? -: Credit is given despite weakness. Demonstration of task is permitted. Sub stitute command if hands cannot be used. -: 0=Performs both tasks correctly -: 1=Performs one task correctly -: 2=Performs neither task correctly 1c. Responses: 2 2. Gaze: Establish eye contact and instruct patient to "Follow my finger" -: 0=Normal -: 1=Partial gaze palsy. Gaze is abnormal in one or both eyes, but where forced deviation or total gaze paresis is not present. -: 2=Forced deviation or total gaze paresis. 2. Responses: 1 3. Visual Chavez: Sees fingers in all four quadrants. -: 0=No visual loss. -: 1=Partial hemianopsia. -: 2=Complete hemianopsia. -: 3=Bilateral hemianopsia (including Cortical blindness) 3. Responses: 0 4. Facial Movement: Instruct patient to: -: a. Show me your teeth -: b. Raise your eyebrows -: c. Close your eyes -: d. Smile -: 0=Normal symmetrical movement -: 1=Minor paralysis (flattened nasolabial fold, asymmetry on smiling). -: 2=Partial paralysis (total or near total paralysis of lower face). -: 3=Complete paralysis of upper and lower face 4. Responses: 1 5. Motor functions (left arm): Alternate sides and extend each arm with palms down (90 degrees if sitting or 45 degrees for supine). -: 0=No drift;limb holds for full 10 seconds. -: 1=Drift; limb holds but drifts down before full 10 seconds, but does not hit bed. -: 2=Some effort against gravity; limb cannot get to or maintain position. -: 3=No effort against gravity; limb falls. -: 4=No movement. -: UN=Amputation, joint fusion, explain in comments. 5. Responses (left arm): 4 5. Motor Functions (right arm): Alternate sides and extend each arm with palms down (90 degrees if sitting or 45 degrees for supine). -: 0=No drift;limb holds for full 10 seconds. -: 1=Drift; limb holds but drifts down before full 10 seconds, but does not hit bed. -: 2=Some effort against gravity; limb cannot get to or maintain position. -: 3=No effort against gravity; limb falls. -: 4=No movement. -: UN=Amputation, joint fusion, explain in comments. 5. Responses (right arm): UN - Right arm contracture, previous CVA 6. Motor Functions (left leg): With patient lying supine, alternate sides and extend each leg (30 degrees always while supine). -: 0=No drift, leg holds position for full 5 seconds -: 1=Drift; leg falls before full 5 seconds but does not hit bed. -: 2=Some effort against gravity, leg falls to bed but some effort against gravity. -: 3=No effort against gravity, leg falls to bed immediately. -: 4=No movement. -: UN=Amputation, joint fusion; explain in comments. 6. Responses (left leg): UN - amputation 6. Motor Functions (right leg): With patient lying supine, alternate sides and extend each leg (30 degrees always while supine). -: 0=No drift, leg holds position for full 5 seconds -: 1=Drift; leg falls before full 5 seconds but does not hit bed. -: 2=Some effort against gravity, leg falls to bed but some effort against gravity. -: 3=No effort against gravity, leg falls to bed immediately. -: 4=No movement. -: UN=Amputation, joint fusion; explain in comments. 6. Responses (right leg): UN - amputation 7. Limb Ataxia: With eyes open instruct patient to: -: a. "Touch your finger to your nose". -: b. "Touch your heel to your nunn" -: 0=Absent -: 1=Present in one limb. -: 2=Present in two limbs. -: UN=Amputation or joint fusion; explain in comments. 7. Responses: UN - bilateral LE amputations, aphasic 8. Sensory: Test sensation using pinprick or noxious stimuli. Test as many body parts as possible. -: 0=Normal;no sensory loss -: 1=Mile to moderate sensory loss (patient feels pin prick but is less sharp on affected side). -: 2=Severe or total sensory loss. 8. Responses: 2 9. Best Language: Instruct patient to: -: a. "Describe what you see in this picture." -: b. "Name the items in this picture." -: c. "Read these sentences." -: 0=No aphasia, normal -: 1=Mild to moderate aphasia. -: 2=Severe aphasia -: 3=Mute, global aphasia, no usable speech or auditory comprehension. 9. Responses: 3 10. Articulation, Dysarthia: Instruct patient to: -: "Read these words" or "Repeat these words" -: 0=Normal -: 1=Mild to moderate; patient may slur some words but can be understood without difficulty. -: 2=Severe; patients speech so slurred as to be unintelligible in the absence of dysphasia. -: UN=Intubated or other physical barrier, explain in comments. 10. Responses: 2 11. Extinction or inattention: 0=No abnormality -: 1= Visual, tactile, auditory, spatial, or personal inattention or extinction to bilateral simulation in one or the sensory modalities. -: 2=Profound rima-inattention or rima-inattention to more than one modality; does not recognize own hand. 11. Responses: 0 Total Score: 20
[2018-03-10 12:51] LABS: ALANINE AMINOTRANSFERASE 20 U/L (9-52); ALBUMIN 2.1 g/dL (3.5-5.0); ALKALINE PHOSPHATASE 261 U/L (38-126); ANION GAP 6 (5-19); ASPARTATE AMINO TRANSFERASE 59 U/L (14-36); BILIRUBIN,DIRECT 0.4 mg/dL (0.0-0.4); BILIRUBIN,TOTAL 0.4 mg/dL (0.2-1.3); BLOOD UREA NITROGEN 52 mg/dL (7-20); CALCIUM 8.4 mg/dL (8.4-10.2); CARBON DIOXIDE 18 mmol/L (22-30); CHLORIDE 117 mmol/L (98-107); CREATINE KINASE 34 U/L (30-135); GLUCOSE 85 mg/dL (75-110); POTASSIUM 5.9 mmol/L (3.6-5.0); SODIUM 140.8 mmol/L (137-145); TOTAL PROTEIN 5.5 g/dL (6.3-8.2)
[2018-03-10 12:58] LABS: CREATINE KINASE MB 1.35 ng/mL (<4.55); TROPONIN I 0.031 ng/mL
[2018-03-10] MEDS ORDERED: PROPOFOL 1,000 MG/100 ML INFUS..BTL IV ONE (13:08)
--- NOTE | 2018-03-10 13:08 | RADIOLOGY REPORT (SQ) ---
EXAM DESCRIPTION: CHEST SINGLE VIEW COMPLETED DATE/TIME: 03/10/2018 12:53 pm REASON FOR STUDY: bed 9 stroke alert, INTUBATION, NG TUBE COMPARISON: 02/23/2018. EXAM PARAMETERS: NUMBER OF VIEWS: One view. TECHNIQUE: Single frontal radiographic view of the chest acquired. RADIATION DOSE: NA LIMITATIONS: None. FINDINGS: LUNGS AND PLEURA: Interstitial prominence with pleural thickening versus minimal fluid in the right minor fissure. MEDIASTINUM AND HILAR STRUCTURES: No masses. Contour normal. HEART AND VASCULAR STRUCTURES: Heart normal in size. Normal vasculature. BONES: No acute findings. HARDWARE: Endotracheal tube with the tip located 2 cm proximal to the perlita. Nasogastric tube with the tip in the stomach. Stable central line. OTHER: No other significant finding. IMPRESSION: LIFE LINES DESCRIBED IN SATISFACTORY POSITION. TECHNICAL DOCUMENTATION: JOB ID: [id number]- All Rights Reserved Reading location - IP/workstation name: [email or web address]
--- NOTE | 2018-03-10 13:36 | EKG REPORT ---
SEVERITY:- OTHERWISE NORMAL ECG - SINUS RHYTHM LOW VOLTAGE IN FRONTAL LEADS : Confirmed by: Liya De Leon MD 10-Mar-2018 13:36:07
[2018-03-10] MEDS ORDERED: NORMAL SALINE 1000 ML 1,000 ML IV ONE (13:49)
[2018-03-10] MEDS ORDERED: SODIUM BICARBONATE 8.4% INJ 50 MEQ/50 ML DISP.SYRIN IV ONE (13:50)
[2018-03-10] MEDS ORDERED: PROPOFOL 1,000 MG/100 ML INFUS..BTL IV PRN (13:57)
[2018-03-10 14:21] LABS: ARTERIAL BLOOD BASE EXCESS -11.7 mmol/L; ARTERIAL BLOOD H2CO3 1.07 mmol/L (1.05-1.35); ARTERIAL BLOOD HCO3 14.8 mmol/L (20-24); ARTERIAL BLOOD PCO2 35.6 mmHg (35-45); ARTERIAL BLOOD PH 7.24 (7.35-7.45); ARTERIAL BLOOD PO2 80.6 mmHg (80-100); ARTERIAL BLOOD TOTAL CO2 15.9 mmol/L (21-25)
[2018-03-10 14:22] LABS: ARTERIAL BLOOD FIO2 50%
[2018-03-10] MEDS ORDERED: INSULIN REG, HUMAN 100 UNIT/ML 3 ML VIAL (PYX) IV ONE (14:56)
[2018-03-10] MEDS ORDERED: DEXTROSE 5%-WATER 1000 ML 1,000 ML with SODIUM BICARBONATE 150 MEQ IV ONE ×2 (14:56)
[2018-03-10] MEDS ORDERED: DEXTROSE 50%-WATER 25 GM/50 ML DISP.SYRIN IV ONE (14:56)
[2018-03-10 17:51] LABS: APPEARANCE,URINE TURBID; BILIRUBIN,URINE NEGATIVE (NEGATIVE); GLUCOSE, URINE NEGATIVE (NEGATIVE); KETONES,URINE NEGATIVE (NEGATIVE); LEUKOCYTE ESTERASE,URINE LARGE (NEGATIVE); NITRITE,URINE NEGATIVE (NEGATIVE); PROTEIN,URINE 100 mg/dL (NEGATIVE); URINE SPECIFIC GRAVITY 1.016; UROBILINOGEN,URINE NEGATIVE mg/dL (<2.0)
[2018-03-10 17:54] LABS: COLOR,URINE YELLOW
[2018-03-10 18:20] VITALS: BP 156/68
== END 2018-03-10 18:30 | disposition short-term general hospital (02) ==
LOC: ER 12:08
DX: I63.9 Cerebral infarction, unspecified (principal); R47.01 Aphasia; D72.829 Elevated white blood cell count, unspecified; R41.82 Altered mental status, unspecified; E87.2 Acidosis; N28.9 Disorder of kidney and ureter, unspecified; I10 Essential (primary) hypertension; E11.9 Type 2 diabetes mellitus without complications; F17.200 Nicotine dependence, unspecified, uncomplicated; I69.951 Hemiplegia and hemiparesis following unspecified cerebrovascular disease affecting right dominant side; Z90.710 Acquired absence of both cervix and uterus; Z91.040 Latex allergy status; Z88.0 Allergy status to penicillin; Z88.6 Allergy status to analgesic agent; Z89.512 Acquired absence of left leg below knee; Z89.611 Acquired absence of right leg above knee
CPT/HCPCS: 93005; 99291; 99292; 96361; 96374; 36415; 87040; 87086; 82553; 82803; 82550; 85025; 85610; 85730; 87077; 87088; 80053; 81001; 84484; 87186; 83605; 71045; 70450; 94660; 93010; 36600; 31500; J3490 ×3; J2704; A9270; J7060; J7030; 94002; J1815

== ENCOUNTER 2018-03-28 10:15 | Inpatient (IN) | payer MEDICARE, OTHER ==
--- NOTE | 2018-03-28 11:34 | ER Document Report ---
ED General - General Stated Complaint: ALTERED MENTAL STATUS Time Seen by Provider: 03/28/18 11:26 Notes: Patient brought in by EMS from home where she is cared for by her sons. Patient has a history of a massive stroke 2 years ago which resulted in right-sided paralysis, now with contractures. She is normally alert, and can converse although she is supposed to get therapy for dysphasia. Son says that she is poorly responsive today and not as responsive as usual. This is the same way she was when she was here a week and a half ago and was sent from here to [facility]. She was just discharged from [facility] 3 days ago. They told the family that the patient has had another stroke a week and a half ago. Son describes her oxygen level is being low when EMS arrived it was 40-60%, but on the run report, she is 99% on 10 L of oxygen. Has had some recent cough. Has an indwelling Carrillo. Feeds by PEG tube. Patient has had bilateral BKA's for peripheral vascular disease. In the past, she has been on dialysis, but not currently requiring dialysis. She has not had any for at least 2 months. TRAVEL OUTSIDE OF THE [place] IN LAST 30 DAYS: No - Related Data Allergies/Adverse Reactions: latex [Latex] Allergy (Mild, Verified 12/31/17 17:56) RASH Penicillins Allergy (Mild, Verified 12/31/17 17:56) RASH, BREATHING DIFFICULTY codeine Allergy (Verified 12/31/17 17:56) heparin Allergy (Verified 12/31/17 17:56) Past Medical History - Social History Smoking Status: Unknown if Ever Smoked Family History: Reviewed & Not Pertinent, CAD, COPD - Past Medical History Cardiac Medical History: Reports: Hx Hypertension Pulmonary Medical History: Reports: Hx COPD Neurological Medical History: Reports: Hx Cerebrovascular Accident - 2 years ago and then couple of weeks ago.. Denies: Hx Seizures Endocrine Medical History: Reports: Hx Diabetes Mellitus Type 2 Renal/ Medical History: Reports: Hx Renal Insufficiency, Other - Patient has previously been on dialysis, but has not had dialysis for sever Psychiatric Medical History: Reports: Hx Depression Past Surgical History: Reports: Hx Hysterectomy, Hx Orthopedic Surgery - Bilateral BKA Review of Systems - Review of Systems -: Yes ROS unobtainable due to patient's medical condition - patient has severe dysplasia and I cannot understand what she is saying. Physical Exam - Vital signs Vitals: Resp 20 03/28/18 10:22 Interpretation: Normal, Hypoxic - Family reports oxygen saturation was low (40%) at home. Notes: Physical Exam late entry 02/27/2019, 2:14 pm Vital Signs all essentially normal Head: atraumatic, EOM intact. Oral moist, no lesions. Neck: supple. No caroid bruits heard. Thyroid not enlarged without nocules. Chest: clear bilaterally; poor inspirations. O2 sat 97% on O2. Heart: RR. No murmur heard. No ectopy heard. Abdom: soft and nontender anywhere. Feeding PEG tube. Urol: Carrillo cath in bladder. cloudy urine. no bladder tenderness. Skin: Decubitus lesions around buttock; seem painful. Otherwise, no rashes or lesions Ortho/Extremities: Bilateral BKA. Neuro: right arm with chronic contracture from old stroke. awake and alert, but not oriented. Unable to speak although she tries. Moves left arm. No facial asymmetry. Course - Re-evaluation Re-evalutation: 03/30/18 14:28 Carrillo cath was changed and subsequent U/A shows severe UTI. Discussed with Hospitalist who will admit patient. - Vital Signs Vital signs: Temp Pulse Resp BP Pulse Ox 98.0 F 78 16 144/58 H 98 03/30/18 08:09 03/30/18 12:00 03/30/18 12:00 03/30/18 12:00 03/30/18 12:00 - Laboratory Result Diagrams: 03/30/18 05:46 03/30/18 05:46 Laboratory results interpreted by me: 03/28/18 03/28/18 03/28/18 11:20 11:20 11:20 RBC 2.62 L Hgb 7.7 L Hct 23.4 L RDW 17.4 H VBG pH Sodium 136.9 L Potassium 6.0 H* BUN 76 H Creatinine 2.14 H Est GFR ( Amer) 28 L Est GFR (Non-Af Amer) 23 L Lactic Acid 0.6 L AST 37 H Alkaline Phosphatase 132 H Total Protein 5.5 L Albumin 2.4 L Urine Protein Urine Blood Ur Leukocyte Esterase 03/28/18 03/28/18 11:20 13:10 RBC Hgb Hct RDW VBG pH 7.44 H Sodium Potassium BUN Creatinine Est GFR ( Amer) Est GFR (Non-Af Amer) Lactic Acid AST Alkaline Phosphatase Total Protein Albumin Urine Protein 100 H Urine Blood SMALL H Ur Leukocyte Esterase LARGE H Critical Care Note - Critical Care Note Total time excluding time spent on procedures (mins): 40 Discharge - Discharge Clinical Impression: Renal insufficiency, Hyperkalemia, Pneumonia UTI (urinary tract infection) Qualifiers: Urinary tract infection type: acute cystitis Hematuria presence: with hematuria Qualified Code(s): N30.01 - Acute cystitis with hematuria Condition: Stable Disposition: ADMITTED INPATIENT Admitting Provider: Hospitalist Unit Admitted: IMCU
[2018-03-28 11:46] LABS: ABSOLUTE BASOPHILS # (AUTO) 0.1 10^3/uL (0.0-0.2); ABSOLUTE EOSINOPHILS # (AUTO) 0.2 10^3/uL (0.0-0.6); ABSOLUTE LYMPHOCYTES (AUTO) 1.5 10^3/uL (0.5-4.7); ABSOLUTE MONOCYTES (AUTO) 0.6 10^3/uL (0.1-1.4); ABSOLUTE NEUT (AUTO) 6.4 10^3/uL (1.7-8.2); EOSINOPHILS % (AUTO) 2.8 % (0-6); HEMATOCRIT 23.4 % (36.0-47.0); LYMPHOCYTES % (AUTO) 16.6 % (13-45); MEAN CORPUSCULAR HEMOGLOBIN 29.5 pg (27.0-33.4); MEAN CORPUSCULAR HGB CONC 33.1 g/dL (32.0-36.0); MEAN CORPUSCULAR VOLUME 89 fl (80-97); MONOCYTES % (AUTO) 7.1 % (3-13); PLATELET COUNT 375 10^3/uL (150-450); RED BLOOD COUNT 2.62 10^6/uL (3.72-5.28); RED CELL DISTRIBUTION WIDTH 17.4 % (11.5-14.0); SEGMENTED NEUTROPHILS % (AUTO) 72.5 % (42-78); TOTAL CELLS COUNTED % (AUTO) 100 %; WHITE BLOOD COUNT 8.8 10^3/uL (4.0-10.5)
[2018-03-28 11:47] LABS: PROTHROMBIN TIME 12.6 SEC (11.4-15.4)
[2018-03-28 11:49] LABS: VENOUS BLOOD HCO3 26.5 mmol/L (20-32); VENOUS BLOOD PCO2 40.3 mmHg (35-63); VENOUS BLOOD PH 7.44 (7.30-7.42)
[2018-03-28 11:51] LABS: HEMOGLOBIN 7.7 g/dL (12.0-15.5)
[2018-03-28 12:00] LABS: ALANINE AMINOTRANSFERASE 31 U/L (9-52); ALBUMIN 2.4 g/dL (3.5-5.0); ALKALINE PHOSPHATASE 132 U/L (38-126); ANION GAP 6 (5-19); ASPARTATE AMINO TRANSFERASE 37 U/L (14-36); BILIRUBIN,DIRECT 0.4 mg/dL (0.0-0.4); BILIRUBIN,TOTAL 0.4 mg/dL (0.2-1.3); BLOOD UREA NITROGEN 76 mg/dL (7-20); CALCIUM 8.7 mg/dL (8.4-10.2); CARBON DIOXIDE 28 mmol/L (22-30); CHLORIDE 103 mmol/L (98-107); GLUCOSE 86 mg/dL (75-110); SODIUM 136.9 mmol/L (137-145); TOTAL PROTEIN 5.5 g/dL (6.3-8.2)
--- NOTE | 2018-03-28 12:42 | RADIOLOGY REPORT (SQ) ---
EXAM DESCRIPTION: CT HEAD WITHOUT COMPLETED DATE/TIME: 03/28/2018 12:15 pm REASON FOR STUDY: bed 11 r/o stroke COMPARISON: 03/10/2018 TECHNIQUE: Axial images acquired through the brain without intravenous contrast. Images reviewed wi th bone, brain and subdural windows. Additional sagittal and coronal reconstructions were generated. Images stored on PACS. All CT scanners at this facility use dose modulation, iterative reconstruction, and/or weight based d osing when appropriate to reduce radiation dose to as low as reasonably achievable (ALARA). [facility]: Dose Right [facility]: CareDose [facility]: Dose Right [facility]: Teradose 4D [facility]: Smart P[employer] RADIATION DOSE: CT Rad equipment meets quality standard of care and radiation dose reduction techniq ues were employed. CTDIvol: 53.2 mGy. DLP: 1017 mGy-cm LIMITATIONS: None. FINDINGS: VENTRICLES: Mildly prominent, commensurate with the sulci. The cisterns are patent. CEREBRUM: Old left thalamic infarct and right periventricular infarct.. Chronic small vessel ischem ic disease. No masses. No hemorrhage. No midline shift. No evidence for acute infarction. CEREBELLUM: No masses. No hemorrhage. No alteration of density. No evidence for acute infarction. EXTRAAXIAL SPACES: Age related involutional change. No fluid collections. No masses. ORBITS AND GLOBE: No intra- or extraconal masses. Normal contour of globe without masses. CALVARIUM: No fracture. PARANASAL SINUSES: Small air-fluid level in the sphenoid sinus suggest acute disease. SOFT TISSUES: No mass or hematoma. OTHER: No other significant finding. IMPRESSION: 1. No significant interval changes since the prior study dated 03/10/2018. No acute intra cranial abnormality. 2. Chronic small vessel ischemic changes and old remote left thalamic and right periventricular infa rcts. 3. A small air-fluid level in the sphenoid sinus suggest acute sinus disease. Correlation suggested . EVIDENCE OF ACUTE STROKE: NO. COMMENT: Quality ID # 436: Final reports with documentation of one or more dose reduction techniques (e.g., Automated exposure control, adjustment of the mA and/or kV according to patient size, use of iterative reconstruction technique) TECHNICAL DOCUMENTATION: JOB ID: [id number] [employer]- All Rights Reserved Reading location - IP/workstation name: [email or web address]
--- NOTE | 2018-03-28 12:54 | RADIOLOGY REPORT (SQ) ---
EXAM DESCRIPTION: CHEST SINGLE VIEW COMPLETED DATE/TIME: 03/28/2018 12:41 pm REASON FOR STUDY: Fever and cough. COMPARISON: 03/10/2018 EXAM PARAMETERS: NUMBER OF VIEWS: One view. TECHNIQUE: Single frontal radiographic view of the chest acquired. RADIATION DOSE: NA LIMITATIONS: None. FINDINGS: LUNGS AND PLEURA: The previously demonstrated right upper lobe infiltrate has resolved. New finding of mild parenchymal density in the left mid-lower lung zones, may be on the basis of infi ltrates. Minimal atelectasis/infiltrate at the right lung base. No pneumothorax or pleural effusion . MEDIASTINUM AND HILAR STRUCTURES: No masses. Contour normal. HEART AND VASCULAR STRUCTURES: Heart normal in size. Normal vasculature. BONES: No acute findings. HARDWARE: Interval resolution of endotracheal and nasogastric tubes. The previously demonstrated Rr ight internal jugular central venous hemodialysis catheter is not visualized. OTHER: No other significant finding. IMPRESSION: 1. Interval resolution of the right upper lobe infiltrate since the prior study dated . 2. There are new areas of mild increased parenchymal density in the left mid-lower lung zones and mi nimal changes at the right lung base, may be on the basis of infiltrates. Correlation suggested. 3. Interval removal of the Right IJ hemodialysis catheter, endotracheal and nasogastric tubes. TECHNICAL DOCUMENTATION: JOB ID: [id number] [employer]- All Rights Reserved Reading location - IP/workstation name: [email or web address]
[2018-03-28] MEDS ORDERED: CEFTRIAXONE INJ 1000 MG VIAL IV ONE (13:19)
[2018-03-28] MEDS ORDERED: FENTANYL CITRATE INJ/PF 100 MCG/2 ML AMPUL IV ONE ×2 (13:19→13:25)
[2018-03-28 13:30] LABS: APPEARANCE,URINE CLOUDY; BILIRUBIN,URINE NEGATIVE (NEGATIVE); COLOR,URINE YELLOW; GLUCOSE, URINE NEGATIVE (NEGATIVE); KETONES,URINE NEGATIVE (NEGATIVE); LEUKOCYTE ESTERASE,URINE LARGE (NEGATIVE); NITRITE,URINE NEGATIVE (NEGATIVE); PROTEIN,URINE 100 mg/dL (NEGATIVE); URINE SPECIFIC GRAVITY 1.014; UROBILINOGEN,URINE NEGATIVE mg/dL (<2.0)
[2018-03-28] MEDS ORDERED: ACETAMINOPHEN 650 MG SUPP.RECT PR ONE (13:32)
[2018-03-28] MEDS ORDERED: DEXTROSE 50%-WATER 25 GM/50 ML DISP.SYRIN IV ONE (14:44)
[2018-03-28] MEDS ORDERED: INSULIN REG, HUMAN 100 UNIT/ML 3 ML VIAL (PYX) IV ONE (14:46)
[2018-03-28] MEDS ORDERED: NORMAL SALINE 1000 ML 1,000 ML IV ONE (14:48)
[2018-03-28] MEDS ORDERED: SODIUM BICARBONATE 8.4% INJ 50 MEQ/50 ML DISP.SYRIN IV ONE (15:22)
[2018-03-28] MEDS ORDERED: INSULIN LISPRO 100 UNIT/ML 3 ML VIAL SUBCUT PRN (15:48)
[2018-03-28] MEDS ORDERED: GLUCAGON,HUMAN RECOMB 1 MG INJ IM PRN (15:48)
[2018-03-28] MEDS ORDERED: DEXTROSE 50%-WATER 25 GM/50 ML DISP.SYRIN IV PRN ×2 (15:48)
[2018-03-28] MEDS ORDERED: DEXTROSE 40% GEL 15 GM TUBE PO PRN ×2 (15:48)
[2018-03-28] MEDS ORDERED: IPRATROPIUM/ALBUTEROL 0.5-2.5 MG/3 ML AMPUL NEB PRN (15:50)
--- NOTE | 2018-03-28 16:23 | RADIOLOGY REPORT (SQ) ---
EXAM DESCRIPTION: CT CHEST WITHOUT COMPLETED DATE/TIME: 03/28/2018 4:00 pm REASON FOR STUDY: hypoxia COMPARISON: None. TECHNIQUE: CT scan performed of the chest without intravenous contrast. Images reviewed with lung, soft tissue and bone windows. Reconstructed coronal and sagittal MPR images reviewed. All images st ored on PACS. All CT scanners at this facility use dose modulation, iterative reconstruction, and/or weight based d osing when appropriate to reduce radiation dose to as low as reasonably achievable (ALARA). [facility]: Dose Right [facility]: CareDose [facility]: Dose Right [facility]: Teradose 4D [facility]: Smart [employer] RADIATION DOSE: CT Rad equipment meets quality standard of care and radiation dose reduction techniq ues were employed. CTDIvol: 15.0 mGy. DLP: 571 mGy-cm. LIMITATIONS: No technical limitations. FINDINGS: LUNGS AND PLEURA: Bilateral small pleural effusions, larger on the right. Multifocal air space disease, more so in the left lung, with fairly extensive consolidation in the left perihilar an d left lower lobe with associated air bronchograms. Considerations for these findings include pneumo klever. A few very small subcentimeter pulmonary nodules. A few focal secretions in the proximal -mid trache a. No pneumothorax. HILAR AND MEDIASTINAL STRUCTURES: No identified masses or abnormal nodes. No obvious aneurysm. HEART AND VASCULAR STRUCTURES: No aneurysm. Dense mitral annular calcifications. Coronary artery ca lcifications. Small pericardial effusion. UPPER ABDOMEN: Prior cholecystectomy. Stable appearing atrophic appearing right kidney. Lobulated contour may be on the basis of prior inflammatory changes with scar. Gastrostomy tube, new finding s robel the CT abdomen and pelvis study dated 03/18/2017. Atherosclerotic changes involving the visualiz ed upper abdominal aorta and branch vessels. Limited exam. THYROID AND OTHER SOFT TISSUES: The thyroid gland is heterogenous in appearance with asymmetric prom inence of the left lobe. A large complex nodule with calcifications almost completely replaces the v isualized left lobe of the thyroid gland. There is evidence of some retrosternal extension identifie d. BONES: Stable remote moderate severe compression deformity involving the T11 vertebra. Remote compr ession deformity at T7. HARDWARE: None in the chest.. OTHER: No other significant findings. IMPRESSION: 1. Multifocal airspace disease, more so in the left lung with fairly extensive consolid ation in the left perihilar and left lower lobe with associated air bronchograms. Considerations for these findings include pneumonia. A follow-up examination following treatment for re-evaluation and to exclude any other underlying pathology. Bilateral small pleural effusions. 2. A few very small subcentimeter pulmonary nodules. 3. The visualized thyroid gland is heterogenous in appearance with asymmetric prominence of the left lobe which is almost completely replaced by a complex appearing nodule. Correlation with lab values and thyroid ultrasound. 4. Additional findings as above. COMMENT: 1. The results of this examination were discussed with the Hospitalist on 03/28/2018 at 16: 16 hours. TECHNICAL DOCUMENTATION: JOB ID: [id number] Quality ID # [id number]: Final reports with documentation of one or more dose reduction techniques (e.g., Au tomated exposure control, adjustment of the mA and/or kV according to patient size, use of iterative reconstruction technique) 2010 [employer]- All Rights Reserved Reading location - IP/workstation name: [email or web address]
[2018-03-28] MEDS ORDERED: CALCIUM GLUCONATE 1000 MG/10 ML INJ IV ONE (16:30)
--- NOTE | 2018-03-28 17:31 | PDOC H&P ---
History of Present Illness Admission Date/PCP: SHELBY RAYA MD Patient complains of: confusion, low O2 at home History of Present Illness: GEORGE LAUGHLIN is a 67 year old female with multiple medical issues. History obtained through patient and calling son over the phone. She has a PMH of prior CVAs with right sided residual weakness, PAD (failed angioplasty and stenting), had a recent left BKA in November 2017 at [facility], complicated by acute renal failure that time requiring hemodialysys and post operative anemia, right BKA in January 2018, subsequently developed sacral ulcers, placed on Carrillo catheter since then, has a PEG tube for dysphagia (failed swallow eval x 3), diabetes mellitus, hypertension and COPD (supposed to be on 2-4L NC but son says O2 was ?not covered by insurance) who was brought in due to lethargy and low O2 sats at home. Upon encounter, patient is saturating at 98% on NRB. She is not in acute distress. She is able to tell me her name, knows she is in a hospital and knows it is March 2018. Denies chest pain or SOB at the moment. Spoke to son/DPOA over the phone who says patient was recently discharged a week and a half ago from [facility] where she was treated for an acute embolic stroke and infected dialysis port subsequently removed. He says patient was discharged back home and was doing fine and was at baseline (AO x 4) until this morning when she woke up and was noted to be more unusually lethargic. He says he took her O2 sats which read in the 40-50s. He called EMS and sats were noted to be in the low 80s and imprved to high 90s with O2 support. He does say she has been having minimally productive cough in the past few days. He says she felt warm but no actual temp was checked at home. Past Medical History Cardiac Medical History: Reports: Hypertension Denies: Atrial Fibrillation, Congestive Heart Failure, Myocardial Infarction, Peripheral Vascular Disease, Pulmonary Embolism Pulmonary Medical History: Reports: Chronic Obstructive Pulmonary Disease (COPD) Denies: Asthma Neurological Medical History: Denies: Seizures Endocrine Medical History: Reports: Diabetes Mellitus Type 2 Renal/ Medical History: Reports: Other - Patient has previously been on dialysis, but has not had dialysis for sever GI Medical History: Denies: Hepatitis, Hiatal Hernia Psychiatric Medical History: Reports: Depression Hematology: Denies: Anemia, Sickle Cell Disease Past Surgical History Past Surgical History: Reports: Hysterectomy, Orthopedic Surgery - Bilateral BKA Denies: Amputation, Mastectomy, Pacemaker Social History Smoking Status: Unknown if Ever Smoked Frequency of Alcohol Use: None Hx Recreational Drug Use: No Drugs: None Hx Prescription Drug Abuse: No Family History Family History: Reviewed & Not Pertinent, CAD, COPD Parental Family History Reviewed: Yes - no premature CAD Children Family History Reviewed: No Sibling(s) Family History Reviewed.: No Medication/Allergy Home Medications: RX: Amlodipine Besylate [Norvasc 5 mg Tablet] 5 mg PO DAILY 03/28/18 RX: Aspirin [Aspirin 325 mg Tablet] 325 mg PO DAILY 03/28/18 RX: Atorvastatin Calcium [Lipitor 40 mg Tablet] 40 mg PO QHS 03/28/18 RX: Cholecalciferol (Vitamin D3) [Vitamin D3 5000 unit Capsule] 5,000 unit PO DAILY 03/28/18 RX: Clonidine HCl [Clonidine HCl ER] 0.1 mg PO Q12 03/28/18 RX: Gabapentin [Neurontin 100 mg Capsule] 100 mg PO QHS 03/28/18 RX: Insulin Aspart [Novolog Flexpen] 0 unit SUBCUT .SLD SCALE 03/28/18 RX: Metoprolol Tartrate [Lopressor 25 mg Tablet] 50 mg PO Q12 03/28/18 Allergies/Adverse Reactions: heparin Allergy (Intermediate, Verified 03/31/18 10:14) Hives latex [Latex] Allergy (Mild, Verified 12/31/17 17:56) RASH Penicillins Allergy (Mild, Verified 12/31/17 17:56) RASH, BREATHING DIFFICULTY codeine Allergy (Verified 12/31/17 17:56) Review of Systems All systems: reviewed and no additional remarkable complaints except as stated - as mentioned above Physical Exam Vital Signs: Temp Pulse Resp BP Pulse Ox 100.7 F H 88 20 154/57 H 99 03/28/18 11:00 03/28/18 11:00 03/28/18 13:01 03/28/18 13:01 03/28/18 13:01 General appearance: PRESENT: no acute distress, well-developed, well-nourished Head exam: PRESENT: atraumatic, normocephalic Eye exam: PRESENT: conjunctiva pink, EOMI, PERRLA. ABSENT: scleral icterus Ear exam: PRESENT: normal external ear exam Neck exam: ABSENT: carotid bruit, JVD, lymphadenopathy, thyromegaly Respiratory exam: PRESENT: rales, rhonchi. ABSENT: wheezes Cardiovascular exam: PRESENT: RRR. ABSENT: diastolic murmur, rubs, systolic murmur Pulses: PRESENT: normal dorsalis pedis pul GI/Abdominal exam: PRESENT: normal bowel sounds, soft. ABSENT: distended, guarding, mass, organolmegaly, rebound, tenderness Rectal exam: PRESENT: deferred Neurological exam: PRESENT: alert, awake, oriented to person, oriented to place, oriented to time, motor sensory deficit - 2/5 motor strength on the right arm, unable to test LEs due to pror bilateral amputations. ABSENT: oriented to situation, CN II-XII grossly intact Results Laboratory Results: 03/28/18 11:20 03/28/18 11:20 03/28/18 03/28/18 03/28/18 11:20 11:20 11:20 WBC 8.8 RBC 2.62 L Hgb 7.7 L Hct 23.4 L MCV 89 MCH 29.5 MCHC 33.1 RDW 17.4 H Plt Count 375 Seg Neutrophils % 72.5 Lymphocytes % 16.6 Monocytes % 7.1 Eosinophils % 2.8 Basophils % 1.0 Absolute Neutrophils 6.4 Absolute Lymphocytes 1.5 Absolute Monocytes 0.6 Absolute Eosinophils 0.2 Absolute Basophils 0.1 VBG pH VBG pCO2 VBG HCO3 VBG Base Excess Sodium 136.9 L Potassium 6.0 H* Chloride 103 Carbon Dioxide 28 Anion Gap 6 BUN 76 H Creatinine 2.14 H Est GFR ( Amer) 28 L Est GFR (Non-Af Amer) 23 L Glucose 86 Lactic Acid 0.6 L Calcium 8.7 Total Bilirubin 0.4 AST 37 H ALT 31 Alkaline Phosphatase 132 H Total Protein 5.5 L Albumin 2.4 L Urine Color Urine Appearance Urine pH Ur Specific [place] Urine Protein Urine Glucose (UA) Urine Ketones Urine Blood Urine Nitrite Ur Leukocyte Esterase Urine WBC (Auto) Urine RBC (Auto) 03/28/18 03/28/18 11:20 13:10 WBC RBC Hgb Hct MCV MCH MCHC RDW Plt Count Seg Neutrophils % Lymphocytes % Monocytes % Eosinophils % Basophils % Absolute Neutrophils Absolute Lymphocytes Absolute Monocytes Absolute Eosinophils Absolute Basophils VBG pH 7.44 H VBG pCO2 40.3 VBG HCO3 26.5 VBG Base Excess 2.0 Sodium Potassium Chloride Carbon Dioxide Anion Gap BUN Creatinine Est GFR ( Amer) Est GFR (Non-Af Amer) Glucose Lactic Acid Calcium Total Bilirubin AST ALT Alkaline Phosphatase Total Protein Albumin Urine Color YELLOW Urine Appearance CLOUDY Urine pH 5.0 Ur Specific [place] 1.014 Urine Protein 100 H Urine Glucose (UA) NEGATIVE Urine Ketones NEGATIVE Urine Blood SMALL H Urine Nitrite NEGATIVE Ur Leukocyte Esterase LARGE H Urine WBC (Auto) >182 Urine RBC (Auto) 23 Impressions: Head CT 03/28/18 00:00 IMPRESSION: 1. No significant interval changes since the prior study dated 03/10/2018. No acute intracranial abnormality. 2. 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 3. A small air-fluid level in the sphenoid sinus suggest acute sinus disease. Correlation suggested. EVIDENCE OF ACUTE STROKE: NO. Chest X-Ray 03/28/18 12:12 IMPRESSION: 1. Interval resolution of the right upper lobe infiltrate since the prior study dated 03/10/2018. 2. There are new areas of mild increased parenchymal density in the left mid- lower lung zones and minimal changes at the right lung base, may be on the basis of infiltrates. Correlation suggested. 3. Interval removal of the Right IJ hemodialysis catheter, endotracheal and nasogastric tubes. Assessment & Plan - Diagnosis (1) Acute encephalopathy Is this a current diagnosis for this admission?: Yes Plan: Appears to have improved with oxygen support. Likely from hypoxia from pneumonia, UTI contributing. CT head only remarkable for chronic CVA changes from previous CVA. Unable to do a full neuro assessment due to prior bilateral amputations. Will proceed with MRI of the brain. (2) Acute respiratory failure with hypoxia Is this a current diagnosis for this admission?: Yes Plan: Secondary to multifocal pneumonia. Currently comfortable and saturating well on a nonrebreather. (3) Multifocal pneumonia Is this a current diagnosis for this admission?: Yes Plan: Noted inital CXR results. Chest CT pursued which showed multifocal pneumonia. Likely HCAP due to recent hospitalization. She has penicillin allergy. She has been recently taken off dialysis. Will hold off on vancomycin for now and will start patient on Levofloxacin. Breathing treatments and sputum culture ordered. (4) UTI (urinary tract infection) due to urinary indwelling Carrillo catheter Is this a current diagnosis for this admission?: Yes Plan: Started on Levaquin. Urine culture ordered. (5) CKD (chronic kidney disease) stage 4, GFR 15-29 ml/min Is this a current diagnosis for this admission?: Yes Plan: Patient recently taken off dialysis. Creatinine today is 2.1. Per son, her creatinine a few weeks ago was 2.8. Avoid nephrotoxic agents. Will also consult Dr. Worrell. (6) Hyperkalemia Is this a current diagnosis for this admission?: Yes Plan: Potassium at 6.0. No EKG changes. Dextrose, insulin and calcium gluconate regimen ordered in the ER. Repeat BMP. (7) Insulin dependent diabetes mellitus Is this a current diagnosis for this admission?: Yes Plan: Son says she is on Novolog and Lantus but that Dr. Angelo has recently d/yvse Lantus. Check Hba1c. Sliding scale insulin for now. Accucheck q6h. Dietary consult for tube feedings. (8) Sacral decubitus ulcer Qualifiers: Pressure injury stage: stage 3 Qualified Code(s): L89.153 - Pressure ulcer of sacral region, stage 3 Is this a current diagnosis for this admission?: Yes Plan: Daily wound care. (9) Anemia Qualifiers: Anemia type: due to chronic kidney disease Chronic kidney disease stage: stage 4 (severe) Qualified Code(s): N18.4 - Chronic kidney disease, stage 4 (severe); D63.1 - Anemia in chronic kidney disease Is this a current diagnosis for this admission?: Yes Plan: Son says she developed significant anemia after her bilateral amputations and when she was started on dialysis. Hemoglobin appears to be stable from new baseline post amputations. (10) Pulmonary nodules Is this a current diagnosis for this admission?: Yes Plan: Discussed chest CT results with radiologist. Will consult pulmonology for further recommendations. (11) Thyroid nodule Is this a current diagnosis for this admission?: Yes Plan: Called by radiologist about complex thyroid nodule. Will check TSH. Routine US thyroid when patient is more stable. - Time Time Spent: 50 to 70 Minutes
[2018-03-28 18:06] LABS: ANION GAP 6 (5-19); BLOOD UREA NITROGEN 73 mg/dL (7-20); CALCIUM 8.9 mg/dL (8.4-10.2); CARBON DIOXIDE 29 mmol/L (22-30); CHLORIDE 104 mmol/L (98-107); GLUCOSE 187 mg/dL (75-110); SODIUM 139.2 mmol/L (137-145)
[2018-03-28 18:10] LABS: POTASSIUM 4.6 mmol/L (3.6-5.0)
--- NOTE | 2018-03-28 18:29 | EKG REPORT ---
SEVERITY:- OTHERWISE NORMAL ECG - SINUS RHYTHM LEFT AXIS DEVIATION MINIMAL ST DEPRESSION, LATERAL LEADS : Confirmed by: Liya De Leon MD 28-Mar-2018 18:29:23
[2018-03-28] MEDS: TRAMADOL HCL 50 MG TABLET PO PRN (20:08)
[2018-03-28] MEDS ORDERED: LORAZEPAM INJ 2 MG/1 ML VIAL IV ONE (20:30)
[2018-03-28] MEDS ORDERED: LEVOFLOXACIN 500 MG/D5W RTU 500 MG/100 ML RTUPB IV ONE (20:30)
--- NOTE | 2018-03-28 21:06 | RADIOLOGY REPORT (SQ) ---
EXAM DESCRIPTION: MR BRAIN WITHOUT IV CONTRAST COMPLETED DATE/TME: 03/28/2018 15:26 CLINICAL HISTORY: 67 years, Female, acute enceph,recent CVA,multiple hx of CVA COMPARISON: CT brain from today's date TECHNIQUE: 280 Images stored on PACS. LIMITATIONS: None. FINDINGS: Sagittal, midline anatomic structures show what is likely at least a partially "empty sella". There is extensive motion artifact which significantly limits the exam. T2 sequences are nearly nondiagnostic. The globes are grossly intact. Partial opacification of the right mastoid air cells. Gradient sequences show no evidence for acute intracranial hemorrhage. Diffusion sequences show areas of diffusion restriction in the right parietal region, measuring 1.7 x 1.0 cm. This area shows relatively low signal on ADC map consistent with acute infarct. No large or territorial acute infarct. No discrete mass or midline shift. Diffuse atrophy. Areas of increased FLAIR/T2 white matter signal in the periventricular and subcortical regions consistent with sequelae of small vessel ischemic change. Remote lacunar infarct of the left thalamus. IMPRESSION: Areas of diffusion restriction consistent with acute infarct in the right parietal region, as above. Remote lacunar infarct left thalamus. Significant motion artifact. Atrophy. Small vessel ischemic change. Partial opacification of the right mastoid air cells. copyright 2010 [employer]- All Rights Reserved
[2018-03-28] MEDS ORDERED: ATORVASTATIN CALCIUM 40 MG TABLET PO SCH (22:00)
[2018-03-28] MEDS ORDERED: ASPIRIN 81 MG TABLET, CHEWABLE PO ONE (22:30)
[2018-03-28] MEDS: ATORVASTATIN CALCIUM 80 MG TABLET PO SCH (22:30)
[2018-03-29] MEDS: HYDRALAZINE HCL INJ/PF 20 MG/1 ML SDV IV PRN (00:33)
[2018-03-29 01:53] LABS: A TYPE INFLUENZA AG NEGATIVE (NEGATIVE); B INFLUENZA AG NEGATIVE (NEGATIVE)
[2018-03-29 06:19] LABS: ABSOLUTE BASOPHILS # (AUTO) 0.1 10^3/uL (0.0-0.2); ABSOLUTE EOSINOPHILS # (AUTO) 0.3 10^3/uL (0.0-0.6); ABSOLUTE LYMPHOCYTES (AUTO) 2.1 10^3/uL (0.5-4.7); ABSOLUTE NEUT (AUTO) 7.4 10^3/uL (1.7-8.2); BASOPHILS % (AUTO) 0.5 % (0-2); EOSINOPHILS % (AUTO) 3.1 % (0-6); HEMATOCRIT 22.6 % (36.0-47.0); LYMPHOCYTES % (AUTO) 18.9 % (13-45); MEAN CORPUSCULAR HEMOGLOBIN 29.6 pg (27.0-33.4); MEAN CORPUSCULAR HGB CONC 33.5 g/dL (32.0-36.0); MEAN CORPUSCULAR VOLUME 88 fl (80-97); MONOCYTES % (AUTO) 9.6 % (3-13); PLATELET COUNT 363 10^3/uL (150-450); RED BLOOD COUNT 2.56 10^6/uL (3.72-5.28); RED CELL DISTRIBUTION WIDTH 17.2 % (11.5-14.0); SEGMENTED NEUTROPHILS % (AUTO) 67.9 % (42-78); TOTAL CELLS COUNTED % (AUTO) 100 %
[2018-03-29 06:21] LABS: HEMOGLOBIN 7.6 g/dL (12.0-15.5)
[2018-03-29 06:41] LABS: BLOOD UREA NITROGEN 69 mg/dL (7-20); CALCIUM 8.8 mg/dL (8.4-10.2); CHOLESTEROL 107.18 mg/dL (0-200); GLUCOSE 70 mg/dL (75-110); POTASSIUM 5.1 mmol/L (3.6-5.0); TRIGLYCERIDES 103 mg/dL (<150)
[2018-03-29 06:47] LABS: ANION GAP 6 (5-19); CARBON DIOXIDE 30 mmol/L (22-30); CHLORIDE 105 mmol/L (98-107); SODIUM 141.2 mmol/L (137-145)
[2018-03-29 06:52] LABS: DIRECT LDL 54 mg/dL (<100)
[2018-03-29] MEDS: FONDAPARINUX SODIUM INJ 2.5 MG/0.5 ML DISP.SYRIN SUBCUT SCH (08:24)
--- NOTE | 2018-03-29 08:37 | RADIOLOGY REPORT (SQ) ---
EXAM DESCRIPTION: U/S THYROID/SFT TISS HD NECK COMPLETED DATE/TIME: 03/29/2018 5:37 am REASON FOR STUDY: complex thyroid nodule COMPARISON: 03/28/2018 TECHNIQUE: Dynamic and static shepard-scale images acquired of the thyroid gland. Selected additional c olor/power Doppler images recorded. All images stored to PACS. LIMITATIONS: Limited exam secondary to patient movement and positioning. FINDINGS: RIGHT LOBE: Unremarkable size measuring 4.0 x 1.3 x 1.6 cm. Heterogeneous echotexture. T here is a anechoic nodule with hyperechoic rim within the mid lobe measuring 6 x 4 x 5 mm. There add itional hypoechoic nodule with internal echoes chain neck areas measuring 5 x 3 x 2 mm. LEFT LOBE: Mildly enlarged measuring 4.6 x 3.2 x 2.1 cm. There is a heterogeneous echotexture with s cattered calcifications. There is a dominant complex nodule with internal calcifications and mixed e chogenicity measuring 1.6 x 2.2 x 1.8 cm. ISTHMUS: Normal size. There is a small hypoechoic nodule measuring 3 x 3 x 2 mm. OTHER: No other significant finding. IMPRESSION: Dominant heterogeneous nodule within the left thyroid lobe measuring 1.6 x 2.2 x 1.8 cm which meets criteria for ultrasound-guided FNA. Additional nodules above. COMMENT: RECOMMENDATIONS FOR THYROID NODULES 1 CM OR LARGER Solitary nodules: Microcalcifications - FNA if 1 cm or greater. Solid or coarse calcification - FNA if 1.5 cm or greater. Mixed Solid/Cystic or Cystic with Mural Nodule - FNA if 2 cm or greater. None of the above but substantial growth since previous - FNA. Cystic with none of the above features and no significant growth - no FNA. Multiple nodules: Use above criteria for selection of nodules to FNA/biopsy. Biopsy probably not necessary in enlarged gland with multiple nodules of similar appearance. Abnormal lymph nodes - FNA/biopsy. Reference: Management of Thyroid Nodules Detected at [place]: Society of Radiologists in Ultrasound Consensus Stateme nt. Radiology 2005; 237:794-800 TECHNICAL DOCUMENTATION: JOB ID: [id number]- All Rights Reserved Reading location - IP/workstation name: [email or web address]
[2018-03-29] MEDS: ASPIRIN 81 MG TABLET, CHEWABLE PO SCH (09:59)
[2018-03-29] MEDS: CLOPIDOGREL BISULFATE 75 MG TABLET PO SCH (09:59)
[2018-03-29] MEDS: TRAMADOL HCL 50 MG TABLET PO PRN (13:11)
--- NOTE | 2018-03-29 14:00 | PDOC CONSULTATION ---
Consultation Consult Date: 03/29/18 Consult reason:: CKD stage IV. History of Present Illness Admission Date/PCP: 03/28/18 17:27 SHELBY RAYA MD History of Present Illness: GEORGE LAUGHLIN is a 67 year old with multiple medical issues. History obtained from her son who is at her bedside this morning. 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 Since her recent discharge from [facility] after her apparent stroke, she was found to be hypoxic and was supposed to be on 2-4L NC but son says O2 was apparently not covered by insurance And so she was not getting any oxygen post discharge from [facility]. Along with her altered mental status she was found to be hypoxic by her son and was brought in due to lethargy and low O2 sats at home. She was on transient hemodialysis during the months of . She then made an apparent renal recovery and was taken off dialysis but before her catheter could be removed she was admitted to [facility] for the stroke. During this evaluation at that hospital she was found to have an infected IJ catheter which was then removed and she was given antibiotics according to the son. Currently on today's examination, she is not in acute distress. She is able to tell me her name, knows she is in a hospital and was talking with her son like nothing was different. Denies chest pain or SOB at the moment. Labs and medications were reviewed with the patient and her son.Shows a stable creatinine of 2.2. Discussions were also done with the treating nurse. Past Medical History Cardiac Medical History: Reports: Hypertension-primary Denies: Atrial Fibrillation, Myocardial Infarction, Peripheral Vascular Disease, Pulmonary Embolism Pulmonary Medical History: Reports: Chronic Obstructive Pulmonary Disease (COPD) Denies: Asthma Neurological Medical History: Denies: Seizures Neurological History Note: History of multiple strokes affecting the left side. Endocrine Medical History: Reports: Diabetes Mellitus Type 2 Complications of Diabetes: Reports: Diabetic Foot Ulcer Renal/ Medical History: Reports: Chronic Kidney Disease Stage IV, Other - Patient has previously been on dialysis, but has not had dialysis for sever GI Medical History: Denies: Hepatitis, Hiatal Hernia Psychiatric Medical History: Reports: Depression Past Surgical History Past Surgical History: Reports: Hysterectomy, Orthopedic Surgery - Bilateral BKA Denies: Mastectomy, Pacemaker Social History Smoking Status: Unknown if Ever Smoked Frequency of Alcohol Use: None Hx Recreational Drug Use: No Drugs: None Hx Prescription Drug Abuse: No Family History Parental Family History Reviewed: Yes - Negative for ESRD Children Family History Reviewed: No Sibling(s) Family History Reviewed.: No Medication/Allergy Home Medications: Amlodipine Besylate [Norvasc 5 mg Tablet] 5 mg PO DAILY 03/28/18 Aspirin [Aspirin 325 mg Tablet] 325 mg PO DAILY 03/28/18 Atorvastatin Calcium [Lipitor 40 mg Tablet] 40 mg PO QHS 03/28/18 Cholecalciferol (Vitamin D3) [Vitamin D3 5000 unit Capsule] 5,000 unit PO DAILY 03/28/18 Clonidine HCl [Clonidine HCl ER] 0.1 mg PO Q12 03/28/18 Gabapentin [Neurontin 100 mg Capsule] 100 mg PO QHS 03/28/18 Insulin Aspart [Novolog Flexpen] 0 unit SUBCUT .SLD SCALE 03/28/18 Metoprolol Tartrate [Lopressor 25 mg Tablet] 50 mg PO Q12 03/28/18 Allergies/Adverse Reactions: latex [Latex] Allergy (Mild, Verified 12/31/17 17:56) RASH Penicillins Allergy (Mild, Verified 12/31/17 17:56) RASH, BREATHING DIFFICULTY codeine Allergy (Verified 12/31/17 17:56) heparin Allergy (Verified 12/31/17 17:56) Review of Systems Constitutional: PRESENT: fatigue, weakness. ABSENT: anorexia, chills, fever(s), headache(s), night sweats Nose, Mouth, and Throat: ABSENT: mouth pain, sore throat Cardiovascular: PRESENT: dyspnea on exertion. ABSENT: chest pain, edema, orthropnea Respiratory: PRESENT: dyspnea. ABSENT: hemoptysis Gastrointestinal: ABSENT: abdominal pain, coffee ground emesis, diarrhea, dysphagia, heartburn, melena, nausea, vomiting Genitourinary: ABSENT: dysuria, hematuria Neurological: PRESENT: abnormal speech, confusion. ABSENT: focal weakness Hematologic/Lymphatic: ABSENT: easy bruising, lymphadenopathy Physical Exam Vital Signs: Temp Pulse Resp BP Pulse Ox 98.2 F 80 16 145/57 H 95 03/29/18 12:01 03/29/18 12:01 03/29/18 12:01 03/29/18 12:01 03/29/18 12:01 Intake & Output 03/28/18 03/29/18 03/30/18 06:59 06:59 06:59 Intake Total 1100 Output Total 225 Balance 875 Weight 62.3 kg General appearance: PRESENT: no acute distress - She is awake alert and talking with her son. She has a chronic Carrillo catheter which was apparently recently exchanged and 1 in [facility]. Eye exam: PRESENT: EOMI, PERRLA. ABSENT: nystagmus Ear exam: PRESENT: normal external ear exam Mouth exam: PRESENT: moist, neck supple Neck exam: ABSENT: lymphadenopathy, meningismus, tenderness, thyromegaly, tracheal deviation Respiratory exam: PRESENT: clear to auscultation nicole, crackles, decreased breath sounds Cardiovascular exam: PRESENT: +S1, +S2 GI/Abdominal exam: PRESENT: normal bowel sounds, soft. ABSENT: organomegaly, tenderness Extremities exam: ABSENT: pedal edema Musculoskeletal exam: PRESENT: other - She is a bilateral lower extremity amputee.. ABSENT: ambulatory Neurological exam: PRESENT: alert, awake, oriented to person, motor sensory deficit - Mainly of the left side.. ABSENT: oriented to place, oriented to time Skin exam: ABSENT: cyanosis, mottled, rash Results Laboratory Results: 03/29/18 05:44 03/29/18 05:44 03/28/18 03/28/18 03/29/18 11:20 17:42 05:44 WBC RBC Hgb Hct MCV MCH MCHC RDW Plt Count Seg Neutrophils % Lymphocytes % Monocytes % Eosinophils % Basophils % Absolute Neutrophils Absolute Lymphocytes Absolute Monocytes Absolute Eosinophils Absolute Basophils Sodium 139.2 141.2 Potassium 4.6 D 5.1 H Chloride 104 105 Carbon Dioxide 29 30 Anion Gap 6 6 BUN 73 H 69 H Creatinine 2.32 H 2.29 H Est GFR ( Amer) 25 L 26 L Est GFR (Non-Af Amer) 21 L 21 L Glucose 187 H 70 L Calcium 8.9 8.8 Triglycerides 103 Cholesterol 107.18 LDL Cholesterol Direct 54 VLDL Cholesterol 21.0 HDL Cholesterol 36 L TSH 1.97 03/29/18 05:44 WBC 11.0 H RBC 2.56 L Hgb 7.6 L Hct 22.6 L MCV 88 MCH 29.6 MCHC 33.5 RDW 17.2 H Plt Count 363 Seg Neutrophils % 67.9 Lymphocytes % 18.9 Monocytes % 9.6 Eosinophils % 3.1 Basophils % 0.5 Absolute Neutrophils 7.4 Absolute Lymphocytes 2.1 Absolute Monocytes 1.0 Absolute Eosinophils 0.3 Absolute Basophils 0.1 Sodium Potassium Chloride Carbon Dioxide Anion Gap BUN Creatinine Est GFR ( Amer) Est GFR (Non-Af Amer) Glucose Calcium Triglycerides Cholesterol LDL Cholesterol Direct VLDL Cholesterol HDL Cholesterol TSH 03/28/18 13:10 Catheterized Urine Urine Culture - Final C.albicans/C.dubliniensis Impressions: Head CT 03/28/18 00:00 IMPRESSION: 1. No significant interval changes since the prior study dated 03/10/2018. No acute intracranial abnormality. 2. 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 3. A small air-fluid level in the sphenoid sinus suggest acute sinus disease. Correlation suggested. EVIDENCE OF ACUTE STROKE: NO. Chest X-Ray 03/28/18 12:12 IMPRESSION: 1. Interval resolution of the right upper lobe infiltrate since the prior study dated 03/10/2018. 2. There are new areas of mild increased parenchymal density in the left mid- lower lung zones and minimal changes at the right lung base, may be on the basis of infiltrates. Correlation suggested. 3. Interval removal of the Right IJ hemodialysis catheter, endotracheal and nasogastric tubes. Head MRI 03/28/18 15:26 IMPRESSION: Areas of diffusion restriction consistent with acute infarct in the right parietal region, as above. Remote lacunar infarct left thalamus. Significant motion artifact. Atrophy. Small vessel ischemic change. Partial opacification of the right mastoid air cells. copyright 2010 [employer]- All Rights Reserved Chest CT 03/28/18 15:43 IMPRESSION: 1. Multifocal airspace disease, more so in the left lung with fairly extensive consolidation in the left perihilar and left lower lobe with associated air bronchograms. Considerations for these findings include pneumo klever. A follow-up examination following treatment for re-evaluation and to exclude any other underlying pathology. Bilateral small pleural effusions. 2. A few very small subcentimeter pulmonary nodules. 3. The visualized thyroid gland is heterogenous in appearance with asymmetric prominence of the left lobe which is almost completely replaced by a complex appearing nodule. Correlation with lab values and thyroid ultrasound. 4. Additional findings as above. Thyroid Ultrasound 03/29/18 13:00 IMPRESSION: Dominant heterogeneous nodule within the left thyroid lobe measuring 1.6 x 2.2 x 1.8 cm which meets criteria for ultrasound-guided FNA. Additional nodules above. Assessment & Plan - Diagnosis (1) Acute encephalopathy Is this a current diagnosis for this admission?: Yes Plan: Apparently possibly multifactorial. I believe she had insults of hypoxia from multifocal pneumonia and possible infection from a sinusitis. Both of these have been corrected with introduction of oxygen as well as levofloxacin. Currently her mental status is back to baseline according to the son. Renal functions are stable and no evidences of uremia. (2) Multifocal pneumonia Is this a current diagnosis for this admission?: Yes Plan: Patient on antibiotic and seemingly responding along with the oxygen being supplemented (3) Sinusitis, acute Plan: Currently on levofloxacin and apparently doing better. (4) Acute respiratory failure with hypoxia Is this a current diagnosis for this admission?: Yes Plan: . Background multifocal pneumonia. Currently on oxygen and saturating well. (5) Anemia Is this a current diagnosis for this admission?: Yes Plan: Latest hemoglobin is 7.6. This needs to be worked up and possibly started on erythropoietin (6) CKD (chronic kidney disease) stage 4, GFR 15-29 ml/min Is this a current diagnosis for this admission?: Yes Plan: It is creatinine is 2.2 and nonoliguric. She has a Carrillo catheter and draining well. No evidences of uremia. No indications for renal replacements. We will continue to monitor. (7) Hyperkalemia Is this a current diagnosis for this admission?: Yes Plan: Advised proper diet. (8) Insulin dependent diabetes mellitus Is this a current diagnosis for this admission?: Yes Plan: Advised tight control. (9) COPD (chronic obstructive pulmonary disease) with acute bronchitis Plan: Presently stable and on oxygen. Stable saturations
--- NOTE | 2018-03-29 15:14 | RADIOLOGY REPORT (SQ) ---
EXAM DESCRIPTION: CAROTID DOPPLER COMPLETED DATE/TIME: 03/29/2018 3:00 pm REASON FOR STUDY: cva COMPARISON: 03/11/2016 TECHNIQUE: Grayscale ultrasound, Doppler velocity and spectra, and color Doppler images acquired of the extra-cranial carotid and vertebral arteries. Images stored on PACS. LIMITATIONS: None. FINDINGS: RIGHT CAROTID CCA Velocities: Within normal limits. ICA Velocities Peak systolic 135 cm/s. End diastolic 45 cm/s. Proximal ICA/CCA peak systolic ratio 1.6. There is plaque in the proximal internal carotid. LEFT CAROTID CCA Velocities: Within normal limits. ICA Velocities Peak systolic 155 cm/s. End diastolic 24 cm/s. Proximal ICA/CCA peak systolic ratio 2. There is plaque in the proximal internal and external carotids. VERTEBRAL ARTERIES: Antegrade flow. Normal waveforms. SUBCLAVIAN ARTERIES: No finding. OTHER: No other significant finding. IMPRESSION: NO HEMODYNAMICALLY SIGNIFICANT STENOSIS. COMMENT: Quality ID #[id number]: Velocity criteria are extrapolated from the diameter data as defined by t he Society of Radiologists in Ultrasound Consensus Conference. Radiology 2003: 229; 340-346. TECHNICAL DOCUMENTATION: JOB ID: [id number] [employer]- All Rights Reserved Reading location - IP/workstation name: [email or web address]
--- NOTE | 2018-03-29 16:44 | PDOC PROGRESS REPORT ---
Subjective Progress Note for:: 03/29/18 Subjective:: No adverse events overnight. No new complaints. No complaints of cough or shortness of breath. Her son said that she had had a stroke and that is why she was initially in the hospital and that she has just come home with a new PEG tube that she had to get as a result of the stroke. She apparently had not been home very long when she had an episode of decreased responsiveness and was found to have a multifocal pneumonia. She was also found to have a thyroid nodule, but she was not interested in getting a biopsy at this time. She actually seems quite fearful of it. Her son seemed to be enthusiastic about getting the biopsy. Reason For Visit: ACUTE ENCEPHALOPATHY, PNEUMONIA, UTI Physical Exam Vital Signs: Temp Pulse Resp BP Pulse Ox 98.2 F 78 16 145/57 H 95 03/29/18 12:01 03/29/18 14:00 03/29/18 12:01 03/29/18 12:01 03/29/18 12:01 Intake & Output 03/28/18 03/29/18 03/30/18 06:59 06:59 06:59 Intake Total 1100 Output Total 225 Balance 875 Weight 62.3 kg General appearance: PRESENT: no acute distress, cooperative, disheveled, hard of hearing Teeth exam: PRESENT: edentulous Respiratory exam: PRESENT: decreased breath sounds, symmetrical, unlabored. ABSENT: accessory muscle use, crackles, prolonged expiratory phas, rhonchi, tach ypnea, wheezes Cardiovascular exam: PRESENT: RRR Vascular exam: PRESENT: normal capillary refill, pallor GI/Abdominal exam: PRESENT: normal bowel sounds, soft. ABSENT: distended, guarding, rebound, tenderness Extremities exam: PRESENT: other - She had a left BKA and a right TKA with unremarkable stumps. ABSENT: joint swelling Musculoskeletal exam: PRESENT: deformity - Left BKA and right AKA as noted above Neurological exam: PRESENT: alert - Drowsy but arousable answer questions appropriately, awake, oriented to person, oriented to place, oriented to situation, other - She held her right upper extremity with the elbow and wrist in flexed positions Psychiatric exam: PRESENT: flat affect Skin exam: PRESENT: dry, pallor, warm Results Laboratory Results: 03/29/18 05:44 03/29/18 05:44 03/28/18 03/28/18 03/29/18 11:20 17:42 05:44 WBC RBC Hgb Hct MCV MCH MCHC RDW Plt Count Seg Neutrophils % Lymphocytes % Monocytes % Eosinophils % Basophils % Absolute Neutrophils Absolute Lymphocytes Absolute Monocytes Absolute Eosinophils Absolute Basophils Sodium 139.2 141.2 Potassium 4.6 D 5.1 H Chloride 104 105 Carbon Dioxide 29 30 Anion Gap 6 6 BUN 73 H 69 H Creatinine 2.32 H 2.29 H Est GFR ( Amer) 25 L 26 L Est GFR (Non-Af Amer) 21 L 21 L Glucose 187 H 70 L Calcium 8.9 8.8 Triglycerides 103 Cholesterol 107.18 LDL Cholesterol Direct 54 VLDL Cholesterol 21.0 HDL Cholesterol 36 L TSH 1.97 03/29/18 05:44 WBC 11.0 H RBC 2.56 L Hgb 7.6 L Hct 22.6 L MCV 88 MCH 29.6 MCHC 33.5 RDW 17.2 H Plt Count 363 Seg Neutrophils % 67.9 Lymphocytes % 18.9 Monocytes % 9.6 Eosinophils % 3.1 Basophils % 0.5 Absolute Neutrophils 7.4 Absolute Lymphocytes 2.1 Absolute Monocytes 1.0 Absolute Eosinophils 0.3 Absolute Basophils 0.1 Sodium Potassium Chloride Carbon Dioxide Anion Gap BUN Creatinine Est GFR ( Amer) Est GFR (Non-Af Amer) Glucose Calcium Triglycerides Cholesterol LDL Cholesterol Direct VLDL Cholesterol HDL Cholesterol TSH 03/28/18 13:10 Catheterized Urine Urine Culture - Final C.albicans/C.dubliniensis Impressions: Head CT 03/28/18 00:00 IMPRESSION: 1. No significant interval changes since the prior study dated 03/10/2018. No acute intracranial abnormality. 2. 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 3. A small air-fluid level in the sphenoid sinus suggest acute sinus disease. Correlation suggested. EVIDENCE OF ACUTE STROKE: NO. Chest X-Ray 03/28/18 12:12 IMPRESSION: 1. Interval resolution of the right upper lobe infiltrate since the prior study dated 03/10/2018. 2. There are new areas of mild increased parenchymal density in the left mid- lower lung zones and minimal changes at the right lung base, may be on the basis of infiltrates. Correlation suggested. 3. Interval removal of the Right IJ hemodialysis catheter, endotracheal and nasogastric tubes. Head MRI 03/28/18 15:26 IMPRESSION: Areas of diffusion restriction consistent with acute infarct in the right parietal region, as above. Remote lacunar infarct left thalamus. Significant motion artifact. Atrophy. Small vessel ischemic change. Partial opacification of the right mastoid air cells. copyright 2010 [employer]- All Rights Reserved Chest CT 03/28/18 15:43 IMPRESSION: 1. Multifocal airspace disease, more so in the left lung with fairly extensive consolidation in the left perihilar and left lower lobe with associated air bronchograms. Considerations for these findings include pneumoni a. A follow-up examination following treatment for re-evaluation and to exclude any other underlying pathology. Bilateral small pleural effusions. 2. A few very small subcentimeter pulmonary nodules. 3. The visualized thyroid gland is heterogenous in appearance with asymmetric prominence of the left lobe which is almost completely replaced by a complex appearing nodule. Correlation with lab values and thyroid ultrasound. 4. Additional findings as above. Carotid Doppler Study 03/29/18 00:00 IMPRESSION: NO HEMODYNAMICALLY SIGNIFICANT STENOSIS. Thyroid Ultrasound 03/29/18 13:00 IMPRESSION: Dominant heterogeneous nodule within the left thyroid lobe measuring 1.6 x 2.2 x 1.8 cm which meets criteria for ultrasound-guided FNA. Additional nodules above. Assessment & Plan - Diagnosis (1) Acute respiratory failure with hypoxia Is this a current diagnosis for this admission?: Yes (2) Anemia Qualifiers: Anemia type: due to chronic kidney disease Chronic kidney disease stage: stage 4 (severe) Qualified Code(s): N18.4 - Chronic kidney disease, stage 4 (severe); D63.1 - Anemia in chronic kidney disease Is this a current diagnosis for this admission?: Yes Plan: Nephrology has been consulted, says she may need to start taking EPO. (3) CKD (chronic kidney disease) stage 4, GFR 15-29 ml/min Is this a current diagnosis for this admission?: Yes Plan: Creatinine is stable in its usual range (4) Multifocal pneumonia Is this a current diagnosis for this admission?: Yes Plan: Possibly due to aspiration. She just got the PEG tube. Whenever the case she seems to be responding to the current treatment, so we will continue. (5) Pulmonary nodules Is this a current diagnosis for this admission?: Yes Plan: Dr. Escobar has been consulted (6) Sacral decubitus ulcer Qualifiers: Pressure injury stage: unspecified pressure injury stage Qualified Code(s): L89.159 - Pressure ulcer of sacral region, unspecified stage Is this a current diagnosis for this admission?: Yes Plan: Present on admission, continue to provide local wound care and turn every 2 hours (7) Thyroid nodule Is this a current diagnosis for this admission?: Yes Plan: She was adamant that she did not want a fine-needle aspirate. I told her to think about it and will check back in with her tomorrow. Her son seem to want t o be very aggressive with her. - Time Time Spent with patient: 25-34 minutes
[2018-03-29] MEDS: LEVOFLOXACIN 250 MG/D5W RTU 250 MG/50 ML RTUPB IV SCH (17:50)
[2018-03-29] MEDS: ATORVASTATIN CALCIUM 80 MG TABLET PO SCH (22:08)
[2018-03-30 06:31] LABS: BLOOD UREA NITROGEN 65 mg/dL (7-20); CALCIUM 8.9 mg/dL (8.4-10.2); GLUCOSE 72 mg/dL (75-110); IRON(TIBC) 39.8 ug/dL (37-170); POTASSIUM 5.2 mmol/L (3.6-5.0)
[2018-03-30 06:37] LABS: ABSOLUTE RETICS # 0.068 10^6/uL (0.028-0.122); ANION GAP 5 (5-19); CARBON DIOXIDE 30 mmol/L (22-30); CHLORIDE 104 mmol/L (98-107); HEMATOCRIT 23.4 % (36.0-47.0); HEMOGLOBIN 7.9 g/dL (12.0-15.5); MEAN CORPUSCULAR HEMOGLOBIN 29.5 pg (27.0-33.4); MEAN CORPUSCULAR HGB CONC 33.6 g/dL (32.0-36.0); MEAN CORPUSCULAR VOLUME 88 fl (80-97); PLATELET COUNT 373 10^3/uL (150-450); RED BLOOD COUNT 2.67 10^6/uL (3.72-5.28); RETICULOCYTE COUNT (AUTO) 2.53 % (0.66-2.85); SODIUM 138.5 mmol/L (137-145); WHITE BLOOD COUNT 8.9 10^3/uL (4.0-10.5)
[2018-03-30] MEDS: FONDAPARINUX SODIUM INJ 2.5 MG/0.5 ML DISP.SYRIN SUBCUT SCH (07:32)
[2018-03-30] MEDS: ASPIRIN 81 MG TABLET, CHEWABLE PO SCH (10:18)
[2018-03-30] MEDS: CLOPIDOGREL BISULFATE 75 MG TABLET PO SCH (10:18)
--- NOTE | 2018-03-30 11:28 | PDOC PROGRESS REPORT ---
Subjective Progress Note for:: 03/30/18 Reason For Visit: Patient seen in the hospital today. She is sleeping comfortably but easily arousable. Seems a bit confused this morning. Discussions were done with the treating nurse Whit. No apparent complaints of shortness of breath, fever or chills. Labs and medications were reviewed. Physical Exam Vital Signs: Temp Pulse Resp BP Pulse Ox 98.0 F 82 16 144/58 H 97 03/30/18 03:43 03/30/18 08:00 03/30/18 08:00 03/30/18 08:00 03/30/18 08:00 Intake & Output 03/29/18 03/30/18 03/31/18 06:59 06:59 06:59 Intake Total 1100 1348 213 Output Total 225 600 Balance 875 748 213 Weight 62.3 kg 66.3 kg General appearance: PRESENT: no acute distress Respiratory exam: PRESENT: clear to auscultation nicole, decreased breath sounds. ABSENT: crackles Cardiovascular exam: PRESENT: +S1, +S2 GI/Abdominal exam: PRESENT: normal bowel sounds, soft. ABSENT: organomegaly, t enderness Extremities exam: ABSENT: pedal edema Musculoskeletal exam: ABSENT: ambulatory Results Laboratory Results: 03/30/18 05:46 03/30/18 05:46 03/30/18 03/30/18 05:46 05:46 WBC 8.9 RBC 2.67 L Hgb 7.9 L Hct 23.4 L MCV 88 MCH 29.5 MCHC 33.6 RDW 17.0 H Plt Count 373 Retic Count (auto) 2.53 Absolute Retic 0.068 Sodium 138.5 Potassium 5.2 H Chloride 104 Carbon Dioxide 30 Anion Gap 5 BUN 65 H Creatinine 2.34 H Est GFR ( Amer) 25 L Est GFR (Non-Af Amer) 21 L Glucose 72 L Calcium 8.9 Iron 39.8 TIBC 189 L % Saturation 21 Ferritin 917.00 H Vitamin B12 840.0 Folate 19.90 03/28/18 13:10 Catheterized Urine Urine Culture - Final C.albicans/C.dubliniensis Impressions: Head CT 03/28/18 00:00 IMPRESSION: 1. No significant interval changes since the prior study dated 03/10/2018. No acute intracranial abnormality. 2. 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 3. A small air-fluid level in the sphenoid sinus suggest acute sinus disease. Correlation suggested. EVIDENCE OF ACUTE STROKE: NO. Chest X-Ray 03/28/18 12:12 IMPRESSION: 1. Interval resolution of the right upper lobe infiltrate since the prior study dated 03/10/2018. 2. There are new areas of mild increased parenchymal density in the left mid- lower lung zones and minimal changes at the right lung base, may be on the basis of infiltrates. Correlation suggested. 3. Interval removal of the Right IJ hemodialysis catheter, endotracheal and na sogastric tubes. Head MRI 03/28/18 15:26 IMPRESSION: Areas of diffusion restriction consistent with acute infarct in the right parietal region, as above. Remote lacunar infarct left thalamus. Significant motion artifact. Atrophy. Small vessel ischemic change. Partial opacification of the right mastoid air cells. copyright 2010 [employer]- All Rights Reserved Chest CT 03/28/18 15:43 IMPRESSION: 1. Multifocal airspace disease, more so in the left lung with fairly extensive consolidation in the left perihilar and left lower lobe with associated air bronchograms. Considerations for these findings include pneumonia. A follow-up examination following treatment for re-evaluation and to exclude any other underlying pathology. Bilateral small pleural effusions. 2. A few very small subcentimeter pulmonary nodules. 3. The visualized thyroid gland is heterogenous in appearance with asymmetric prominence of the left lobe which is almost completely replaced by a complex appearing nodule. Correlation with lab values and thyroid ultrasound. 4. Additional findings as above. Carotid Doppler Study 03/29/18 00:00 IMPRESSION: NO HEMODYNAMICALLY SIGNIFICANT STENOSIS. Thyroid Ultrasound 03/29/18 13:00 IMPRESSION: Dominant heterogeneous nodule within the left thyroid lobe measuring 1.6 x 2.2 x 1.8 cm which meets criteria for ultrasound-guided FNA. Additional nodules above. Assessment & Plan - Diagnosis (1) Acute encephalopathy Is this a current diagnosis for this admission?: Yes Plan: Likely from multifocal pneumonia and hypoxia. Currently improved. (2) CKD (chronic kidney disease) stage 4, GFR 15-29 ml/min Is this a current diagnosis for this admission?: Yes Plan: Renal numbers are stable. She is CKD stage IV. She is currently getting Nepro through her gastrostomy. Potassium is slightly high. No indications for renal dialysis. (3) Multifocal pneumonia Is this a current diagnosis for this admission?: Yes Plan: On antibiotics. As per hospitalist. (4) Acute respiratory failure with hypoxia Is this a current diagnosis for this admission?: Yes (5) Anemia Qualifiers: Anemia type: due to chronic kidney disease Chronic kidney disease stage: stage 4 (severe) Qualified Code(s): N18.4 - Chronic kidney disease, stage 4 (severe); D63.1 - Anemia in chronic kidney disease Is this a current diagnosis for this admission?: Yes Plan: Iron studies are adequate. She has anemia of chronic kidney disease.Will start on erythropoietin weekly and post discharge this needs to be followed up as an outpatient.. (6) Hyperkalemia Is this a current diagnosis for this admission?: Yes Plan: Will make sure that she is on a renal diet. (7) Insulin dependent diabetes mellitus Is this a current diagnosis for this admission?: Yes Plan: Advised tight control (8) COPD (chronic obstructive pulmonary disease) with acute bronchitis Plan: Stable.
[2018-03-30] MEDS ORDERED: EPOETIN ALFA INJ 20000 UNIT/1 ML VIAL (RENAL) SUBCUT ONE (14:00)
--- NOTE | 2018-03-30 15:39 | PDOC PROGRESS REPORT ---
Subjective Progress Note for:: 03/30/18 Subjective:: No adverse events overnight. No fevers. We had hold her tube feeds for a while and then decrease the rate today because she had some residuals. We did not have the tube feed she uses at home and so were using Nepro. Her son told the nurse last night that he has been giving her liquids at home to drink. Reason For Visit: ACUTE ENCEPHALOPATHY, PNEUMONIA, UTI Physical Exam Vital Signs: Temp Pulse Resp BP Pulse Ox 98.0 F 83 16 144/58 H 98 03/30/18 08:09 03/30/18 14:00 03/30/18 12:00 03/30/18 12:00 03/30/18 12:00 Intake & Output 03/29/18 03/30/18 03/31/18 06:59 06:59 06:59 Intake Total 1100 1348 213 Output Total 225 600 Balance 875 748 213 Weight 62.3 kg 66.3 kg General appearance: PRESENT: no acute distress, cooperative, disheveled, hard of hearing Teeth exam: PRESENT: edentulous Respiratory exam: PRESENT: decreased breath sounds, symmetrical, unlabored. ABSENT: accessory muscle use, crackles, prolonged expiratory phas, rhonchi, tachypnea, wheezes Cardiovascular exam: PRESENT: RRR Vascular exam: PRESENT: normal capillary refill, pallor GI/Abdominal exam: PRESENT: normal bowel sounds, soft. ABSENT: distended, guarding, rebound, tenderness Extremities exam: PRESENT: other - She had a left BKA and a right TKA with unremarkable stumps. ABSENT: joint swelling Musculoskeletal exam: PRESENT: deformity - Left BKA and right AKA as noted above Neurological exam: PRESENT: alert - Drowsy but arousable and can answer yes and no questions appropriately, awake, oriented to person, oriented to place, oriented to situation Psychiatric exam: PRESENT: flat affect Skin exam: PRESENT: dry, pallor, warm Results Laboratory Results: 03/30/18 05:46 03/30/18 05:46 03/30/18 03/30/18 05:46 05:46 WBC 8.9 RBC 2.67 L Hgb 7.9 L Hct 23.4 L MCV 88 MCH 29.5 MCHC 33.6 RDW 17.0 H Plt Count 373 Retic Count (auto) 2.53 Absolute Retic 0.068 Sodium 138.5 Potassium 5.2 H Chloride 104 Carbon Dioxide 30 Anion Gap 5 BUN 65 H Creatinine 2.34 H Est GFR ( Amer) 25 L Est GFR (Non-Af Amer) 21 L Glucose 72 L Calcium 8.9 Iron 39.8 TIBC 189 L % Saturation 21 Ferritin 917.00 H Vitamin B12 840.0 Folate 19.90 03/28/18 13:10 Catheterized Urine Urine Culture - Final C.albicans/C.dubliniensis Impressions: Head CT 03/28/18 00:00 IMPRESSION: 1. No significant interval changes since the prior study dated 03/10/2018. No acute intracranial abnormality. 2. 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 3. A small air-fluid level in the sphenoid sinus suggest acute sinus disease. Correlation suggested. EVIDENCE OF ACUTE STROKE: NO. Chest X-Ray 03/28/18 12:12 IMPRESSION: 1. Interval resolution of the right upper lobe infiltrate since the prior study dated 03/10/2018. 2. There are new areas of mild increased parenchymal density in the left mid- lower lung zones and minimal changes at the right lung base, may be on the basis of infiltrates. Correlation suggested. 3. Interval removal of the Right IJ hemodialysis catheter, endotracheal and nasogastric tubes. Head MRI 03/28/18 15:26 IMPRESSION: Areas of diffusion restriction consistent with acute infarct in the right parietal region, as above. Remote lacunar infarct left thalamus. Significant motion artifact. Atrophy. Small vessel ischemic change. Partial opacification of the right mastoid air cells. copyright 2010 [employer]- All Rights Reserved Chest CT 03/28/18 15:43 IMPRESSION: 1. Multifocal airspace disease, more so in the left lung with fairly extensive consolidation in the left perihilar and left lower lobe with associated air bronchograms. Considerations for these findings include pneumonia. A follow-up examination following treatment for re-evaluation and to exclude any other underlying pathology. Bilateral small pleural effusions. 2. A few very small subcentimeter pulmonary nodules. 3. The visualized thyroid gland is heterogenous in appearance with asymmetric prominence of the left lobe which is almost completely replaced by a complex appearing nodule. Correlation with lab values and thyroid ultrasound. 4. Additional findings as above. Carotid Doppler Study 03/29/18 00:00 IMPRESSION: NO HEMODYNAMICALLY SIGNIFICANT STENOSIS. Thyroid Ultrasound 03/29/18 13:00 IMPRESSION: Dominant heterogeneous nodule within the left thyroid lobe measuring 1.6 x 2.2 x 1.8 cm which meets criteria for ultrasound-guided FNA. Additional nodules above. Assessment & Plan - Diagnosis (1) Acute respiratory failure with hypoxia Is this a current diagnosis for this admission?: Yes Plan: Currently stable on 2 L of nasal cannula. We will wean as tolerated. (2) Anemia Qualifiers: Anemia type: due to chronic kidney disease Chronic kidney disease stage: stage 4 (severe) Qualified Code(s): N18.4 - Chronic kidney disease, stage 4 (severe); D63.1 - Anemia in chronic kidney disease Is this a current diagnosis for this admission?: Yes Plan: EPO being started due to to nephrology recommendations (3) CKD (chronic kidney disease) stage 4, GFR 15-29 ml/min Is this a current diagnosis for this admission?: Yes Plan: Stable in her usual range, being followed by nephrology (4) Multifocal pneumonia Is this a current diagnosis for this admission?: Yes Plan: I switched her antibiotics to Zosyn yesterday due to suspicion of aspiration pneumonia (5) Pulmonary nodules Is this a current diagnosis for this admission?: Yes Plan: Dr. Escobar has been consulted (6) Sacral decubitus ulcer Qualifiers: Pressure injury stage: unspecified pressure injury stage Qualified Code(s): L89.159 - Pressure ulcer of sacral region, unspecified stage Is this a current diagnosis for this admission?: Yes Plan: Present on admission, continue to provide local wound care and turn every 2 hours (7) Thyroid nodule Is this a current diagnosis for this admission?: Yes Plan: She continues to refuse biopsy. Her son was not in the room today when I came in and so I do not know if he has had any discussion with her about this. - Time Time Spent with patient: 25-34 minutes
[2018-03-30] MEDS: LEVOFLOXACIN 250 MG/D5W RTU 250 MG/50 ML RTUPB IV SCH (17:25)
[2018-03-30] MEDS: ATORVASTATIN CALCIUM 80 MG TABLET PO SCH (21:41)
[2018-03-30] MEDS: TRAMADOL HCL 50 MG TABLET PO PRN (23:54)
[2018-03-31] MEDS ORDERED: EPOETIN ALFA INJ 20000 UNIT/1 ML VIAL (RENAL) SUBCUT ONE (08:00)
[2018-03-31] MEDS: ENOXAPARIN SODIUM INJ 30 MG/0.3 ML DISP.SYRIN SUBCUT SCH (11:05)
[2018-03-31] MEDS: CLOPIDOGREL BISULFATE 75 MG TABLET PO SCH (11:06)
[2018-03-31] MEDS: ASPIRIN 81 MG TABLET, CHEWABLE PO SCH (11:06)
[2018-03-31 12:20] LABS: ANION GAP 6 (5-19); BLOOD UREA NITROGEN 63 mg/dL (7-20); CALCIUM 9.1 mg/dL (8.4-10.2); CARBON DIOXIDE 30 mmol/L (22-30); CHLORIDE 104 mmol/L (98-107); GLUCOSE 99 mg/dL (75-110); POTASSIUM 5.1 mmol/L (3.6-5.0); SODIUM 139.6 mmol/L (137-145)
[2018-03-31] MEDS: HYDRALAZINE HCL INJ/PF 20 MG/1 ML SDV IV PRN ×2 (15:10→23:44)
[2018-03-31] MEDS: TRAMADOL HCL 50 MG TABLET PO PRN (15:17)
[2018-03-31] MEDS: LEVOFLOXACIN 250 MG/D5W RTU 250 MG/50 ML RTUPB IV SCH (17:03)
--- NOTE | 2018-03-31 17:26 | PDOC PROGRESS REPORT ---
Subjective Progress Note for:: 03/31/18 Subjective:: No adverse events overnight. No new complaints. More alert and interactive today. We had to slow down her tube feeds for her to tolerate it better. Today she did say that she wants to get this thyroid mass biopsied. Reason For Visit: ACUTE ENCEPHALOPATHY, PNEUMONIA, UTI Physical Exam Vital Signs: Temp Pulse Resp BP Pulse Ox 97.4 F 88 18 166/68 H 100 03/31/18 14:59 03/31/18 14:59 03/31/18 14:59 03/31/18 16:27 03/31/18 14:59 Intake & Output 03/30/18 03/31/18 04/01/18 06:59 06:59 06:59 Intake Total 1348 923 296 Output Total 600 750 375 Balance 748 173 -79 Weight 66.3 kg 66.2 kg General appearance: PRESENT: no acute distress, cooperative, disheveled, hard of hearing Teeth exam: PRESENT: edentulous Respiratory exam: PRESENT: decreased breath sounds, symmetrical, unlabored. ABSENT: accessory muscle use, crackles, prolonged expiratory phas, rhonchi, tachypnea, wheezes Cardiovascular exam: PRESENT: RRR Vascular exam: PRESENT: normal capillary refill, pallor GI/Abdominal exam: PRESENT: normal bowel sounds, soft. ABSENT: distended, guarding, rebound, tenderness Extremities exam: PRESENT: other - She had a left BKA and a right TKA with unremarkable stumps. ABSENT: joint swelling Musculoskeletal exam: PRESENT: deformity - Left BKA and right AKA as noted above Neurological exam: PRESENT: alert - Drowsy but arousable and can answer yes and no questions appropriately, awake, oriented to person, oriented to place, oriented to situation Psychiatric exam: PRESENT: flat affect Skin exam: PRESENT: dry, pallor, warm Results Laboratory Results: 03/30/18 05:46 03/31/18 11:12 03/31/18 11:12 Sodium 139.6 Potassium 5.1 H Chloride 104 Carbon Dioxide 30 Anion Gap 6 BUN 63 H Creatinine 2.28 H Est GFR ( Amer) 26 L Est GFR (Non-Af Amer) 21 L Glucose 99 Calcium 9.1 Impressions: Head CT 03/28/18 00:00 IMPRESSION: 1. No significant interval changes since the prior study dated 03/10/2018. No acute intracranial abnormality. 2. 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 3. A small air-fluid level in the sphenoid sinus suggest acute sinus disease. Correlation suggested. EVIDENCE OF ACUTE STROKE: NO. Chest X-Ray 03/28/18 12:12 IMPRESSION: 1. Interval resolution of the right upper lobe infiltrate since the prior study dated 03/10/2018. 2. There are new areas of mild increased parenchymal density in the left mid-lo wer lung zones and minimal changes at the right lung base, may be on the basis of infiltrates. Correlation suggested. 3. Interval removal of the Right IJ hemodialysis catheter, endotracheal and nasogastric tubes. Head MRI 03/28/18 15:26 IMPRESSION: Areas of diffusion restriction consistent with acute infarct in the right parietal region, as above. Remote lacunar infarct left thalamus. Significant motion artifact. Atrophy. Small vessel ischemic change. Partial opacification of the right mastoid air cells. copyright 2010 [employer]- All Rights Reserved Chest CT 03/28/18 15:43 IMPRESSION: 1. Multifocal airspace disease, more so in the left lung with fairly extensive consolidation in the left perihilar and left lower lobe with associated air bronchograms. Considerations for these findings include p neumonia. A follow-up examination following treatment for re-evaluation and to exclude any other underlying pathology. Bilateral small pleural effusions. 2. A few very small subcentimeter pulmonary nodules. 3. The visualized thyroid gland is heterogenous in appearance with asymmetric prominence of the left lobe which is almost completely replaced by a complex appearing nodule. Correlation with lab values and thyroid ultrasound. 4. Additional findings as above. Carotid Doppler Study 03/29/18 00:00 IMPRESSION: NO HEMODYNAMICALLY SIGNIFICANT STENOSIS. Thyroid Ultrasound 03/29/18 13:00 IMPRESSION: Dominant heterogeneous nodule within the left thyroid lobe measuring 1.6 x 2.2 x 1.8 cm which meets criteria for ultrasound-guided FNA. Additional nodules above. Assessment & Plan - Diagnosis (1) Acute respiratory failure with hypoxia Is this a current diagnosis for this admission?: Yes Plan: Currently stable on 2 L of nasal cannula. We will wean as tolerated. (2) Anemia Qualifiers: Anemia type: due to chronic kidney disease Chronic kidney disease stage: stage 4 (severe) Qualified Code(s): N18.4 - Chronic kidney disease, stage 4 (severe); D63.1 - Anemia in chronic kidney disease Is this a current diagnosis for this admission?: Yes Plan: EPO being started due to to nephrology recommendations. Anemia of chronic kidney disease. (3) CKD (chronic kidney disease) stage 4, GFR 15-29 ml/min Is this a current diagnosis for this admission?: Yes Plan: Stable in her usual range, being followed by nephrology (4) Multifocal pneumonia Is this a current diagnosis for this admission?: Yes Plan: I switched her antibiotics to Zosyn due to suspicion of aspiration pneumonia. She will probably have to finish on IV antibiotics. (5) Pulmonary nodules Is this a current diagnosis for this admission?: Yes Plan: Dr. Escobar has been consulted (6) Sacral decubitus ulcer Qualifiers: Pressure injury stage: unspecified pressure injury stage Qualified Code(s): L89.159 - Pressure ulcer of sacral region, unspecified stage Is this a current diagnosis for this admission?: Yes Plan: Present on admission, continue to provide local wound care and turn every 2 hours (7) Thyroid nodule Is this a current diagnosis for this admission?: Yes Plan: She has decided she wants to get the thyroid nodule biopsied, so we will try to make the arrangements to get this done. We might be able to do this as an outpatient. - Time Time Spent with patient: 25-34 minutes
[2018-03-31] MEDS: ATORVASTATIN CALCIUM 80 MG TABLET PO SCH (22:55)
[2018-04-01] MEDS: ASPIRIN 81 MG TABLET, CHEWABLE PO SCH (10:09)
[2018-04-01] MEDS: HYDRALAZINE HCL INJ/PF 20 MG/1 ML SDV IV PRN ×2 (16:24→23:24)
--- NOTE | 2018-04-01 16:54 | PDOC PROGRESS REPORT ---
Subjective Progress Note for:: 04/01/18 Subjective:: No adverse events overnight. She is now off oxygen. She is more alert and interactive today. No abdominal pain. No cough or shortness of breath. No fevers. Reason For Visit: ACUTE ENCEPHALOPATHY, PNEUMONIA, UTI Physical Exam Vital Signs: Temp Pulse Resp BP Pulse Ox 98.1 F 91 18 174/74 H 96 04/01/18 16:02 04/01/18 16:02 04/01/18 16:02 04/01/18 16:02 04/01/18 16:02 Intake & Output 03/31/18 04/01/18 04/02/18 06:59 06:59 06:59 Intake Total 923 532 0 Output Total 750 700 150 Balance 173 -168 -150 Weight 66.2 kg 66.6 kg General appearance: PRESENT: no acute distress, cooperative, disheveled, hard of hearing Teeth exam: PRESENT: edentulous Respiratory exam: PRESENT: decreased breath sounds, symmetrical, unlabored. ABSENT: accessory muscle use, crackles, prolonged expiratory phas, rhonchi, tachypnea, wheezes Cardiovascular exam: PRESENT: RRR Vascular exam: PRESENT: normal capillary refill, pallor GI/Abdominal exam: PRESENT: normal bowel sounds, soft. ABSENT: distended, guarding, rebound, tenderness Extremities exam: PRESENT: other - She had a left BKA and a right TKA with unremarkable stumps. ABSENT: joint swelling Musculoskeletal exam: PRESENT: deformity - Left BKA and right AKA as noted above Neurological exam: PRESENT: alert, awake, oriented to person, oriented to place, oriented to situation Psychiatric exam: PRESENT: flat affect Skin exam: PRESENT: dry, pallor, warm Results Laboratory Results: 03/30/18 05:46 03/31/18 11:12 Impressions: Head CT 03/28/18 00:00 IMPRESSION: 1. No significant interval changes since the prior study dated 03/10/2018. No acute intracranial abnormality. 2. 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 3. A small air-fluid level in the sphenoid sinus suggest acute sinus disease. Correlation suggested. EVIDENCE OF ACUTE STROKE: NO. Chest X-Ray 03/28/18 12:12 IMPRESSION: 1. Interval resolution of the right upper lobe infiltrate since the prior study dated 03/10/2018. 2. There are new areas of mild increased parenchymal density in the left mid- lower lung zones and minimal changes at the right lung base, may be on the basis of infiltrates. Correlation suggested. 3. Interval removal of the Right IJ hemodialysis catheter, endotracheal and n asogastric tubes. Head MRI 03/28/18 15:26 IMPRESSION: Areas of diffusion restriction consistent with acute infarct in the right parietal region, as above. Remote lacunar infarct left thalamus. Significant motion artifact. Atrophy. Small vessel ischemic change. Partial opacification of the right mastoid air cells. copyright 2010 [employer]- All Rights Reserved Chest CT 03/28/18 15:43 IMPRESSION: 1. Multifocal airspace disease, more so in the left lung with fairly extensive consolidation in the left perihilar and left lower lobe with associated air bronchograms. Considerations for these findings include pneumonia. A follow-up examination following treatment for re-evaluation and to exclude any other underlying pathology. Bilateral small pleural effusions. 2. A few very small subcentimeter pulmonary nodules. 3. The visualized thyroid gland is heterogenous in appearance with asymmetric prominence of the left lobe which is almost completely replaced by a complex appearing nodule. Correlation with lab values and thyroid ultrasound. 4. Additional findings as above. Carotid Doppler Study 03/29/18 00:00 IMPRESSION: NO HEMODYNAMICALLY SIGNIFICANT STENOSIS. Thyroid Ultrasound 03/29/18 13:00 IMPRESSION: Dominant heterogeneous nodule within the left thyroid lobe measuring 1.6 x 2.2 x 1.8 cm which meets criteria for ultrasound-guided FNA. Additional nodules above. Assessment & Plan - Diagnosis (1) Acute respiratory failure with hypoxia Is this a current diagnosis for this admission?: Yes Plan: Resolved (2) Anemia Qualifiers: Anemia type: due to chronic kidney disease Chronic kidney disease stage: stage 4 (severe) Qualified Code(s): N18.4 - Chronic kidney disease, stage 4 (severe); D63.1 - Anemia in chronic kidney disease Is this a current diagnosis for this admission?: Yes Plan: EPO being started due to to nephrology recommendations. Anemia of chronic ki dney disease. (3) CKD (chronic kidney disease) stage 4, GFR 15-29 ml/min Is this a current diagnosis for this admission?: Yes Plan: Stable in her usual range, being followed by nephrology (4) Multifocal pneumonia Is this a current diagnosis for this admission?: Yes Plan: I switched her antibiotics to Zosyn due to suspicion of aspiration pneumonia. She will probably have to finish on IV antibiotics. Tomorrow should be her fifth day she should finish after that. (5) Pulmonary nodules Is this a current diagnosis for this admission?: Yes Plan: Dr. Escobar has been consulted, plan to follow-up as an outpatient (6) Sacral decubitus ulcer Qualifiers: Pressure injury stage: unspecified pressure injury stage Qualified Code(s): L89.159 - Pressure ulcer of sacral region, unspecified stage Is this a current diagnosis for this admission?: Yes Plan: Present on admission, continue to provide local wound care and turn every 2 hours (7) Thyroid nodule Is this a current diagnosis for this admission?: Yes Plan: She will follow-up outpatient with surgery because radiology said they would be able to do it with a needle based on its location - Time Time Spent with patient: 25-34 minutes
[2018-04-01] MEDS: LEVOFLOXACIN 250 MG/D5W RTU 250 MG/50 ML RTUPB IV SCH (17:17)
[2018-04-01] MEDS: ATORVASTATIN CALCIUM 80 MG TABLET PO SCH (22:29)
[2018-04-01] MEDS: TRAMADOL HCL 50 MG TABLET PO PRN (22:38)
[2018-04-02] MEDS: ASPIRIN 81 MG TABLET, CHEWABLE PO SCH (09:58)
[2018-04-02] MEDS: ENOXAPARIN SODIUM INJ 30 MG/0.3 ML DISP.SYRIN SUBCUT SCH (10:01)
[2018-04-02 12:40] VITALS: BP 151/70
--- NOTE | 2018-04-02 16:30 | PDOC DISCHARGE SUMMARY ---
General - Admit/Disc Date/PCP Admission Date/Primary Care Provider: 03/28/18 17:27 SHELBY RAYA MD Discharge Date: 04/02/18 - Discharge Diagnosis (1) Acute respiratory failure with hypoxia Is this a current diagnosis for this admission?: Yes Summary: Resolved with treatment of her aspiration pneumonia. (2) Anemia Is this a current diagnosis for this admission?: Yes Summary: Of chronic kidney disease. She is followed by nephrology. They are starting her on EPO. (3) CKD (chronic kidney disease) stage 4, GFR 15-29 ml/min Is this a current diagnosis for this admission?: Yes Summary: Remained stable in his usual range. (4) Multifocal pneumonia Is this a current diagnosis for this admission?: Yes Summary: Seem to be worse in the left lower lobe, aspiration pneumonia suspected. She got 5 days of antibiotics and this has resolved. (5) Pulmonary nodules Is this a current diagnosis for this admission?: Yes Summary: She was seen in consultation by pulmonary, who will follow her as an outpatient. (6) Sacral decubitus ulcer Is this a current diagnosis for this admission?: Yes Summary: We provided local wound care and turn her every couple of hours. (7) Thyroid nodule Is this a current diagnosis for this admission?: Yes Summary: Radiology said that because of the location it would be very difficult to get via FNA. They have recommended surgical consultation. Surgery said they would see her in the outpatient setting. - Additional Information Discharge Diet: Tube Feeding (Comments) Discharge Activity: Activity As Tolerated Home Medications: Amlodipine Besylate [Norvasc 5 mg Tablet] 5 mg PO DAILY 03/28/18 Aspirin [Aspirin 325 mg Tablet] 325 mg PO DAILY 03/28/18 Atorvastatin Calcium [Lipitor 40 mg Tablet] 40 mg PO QHS 03/28/18 Cholecalciferol (Vitamin D3) [Vitamin D3 5000 unit Capsule] 5,000 unit PO DAILY 03/28/18 Clonidine HCl [Clonidine HCl ER] 0.1 mg PO Q12 03/28/18 Gabapentin [Neurontin 100 mg Capsule] 100 mg PO QHS 03/28/18 Insulin Aspart [Novolog Flexpen] 0 unit SUBCUT .SLD SCALE 03/28/18 Metoprolol Tartrate [Lopressor 25 mg Tablet] 50 mg PO Q12 03/28/18 History of Present Illness History of Present Illness: GEORGE LAUGHLIN is a 67 year old female with multiple medical issues. History obtained through patient and calling son over the phone. 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 Upon encounter, patient is saturating at 98% on NRB. She is not in acute distress. She is able to tell me her name, knows she is in a hospital and knows it is March 2018. Denies chest pain or SOB at the moment. Spoke to son/DPOA over the phone who says patient was recently discharged a week and a half ago from [facility] where she was treated for an acute embolic stroke and infected dialysis port subsequently removed. He says patient was discharged back home and was doing fine and was at baseline (AO x 4) until this morning when she woke up and was noted to be more unusually lethargic. He says he took her O2 sats which read in the 40-50s. He called EMS and sats were noted to be in the low 80s and imprved to high 90s with O2 support. He does say she has been having minimally productive cough in the past few days. He says she felt warm but no actual temp was checked at home. Hospital Course Hospital Course: Her symptoms and given her things to drink at home and it is suspected that she aspirated. She recently had a stroke and had to have a PEG tube placed because she could not swallow. She did not have any signs of aspiration here. We put her on Nepro for her tube feeds because we do not have what she uses at home, she had issues tolerating that we had to stop the pump a couple of times, but she never had any symptoms of aspiration from it. We kept her head of the bed at 30 degrees or greater. We treated her for aspiration pneumonia for 5 days and that is now resolved. She initially required supplemental O2 but the last couple of days she has not needed it. Her comorbid conditions were managed with her home medications. Her labs and examination were reassuring and she was discharged in good condition. She also had a thyroid nodule that was not going to be easy to biopsy via FNA and so were going to set her up with an outpatient surgical consultation. Physical Exam Vital Signs: Temp Pulse Resp BP Pulse Ox 97.2 F 91 18 136/69 H 94 04/02/18 12:28 04/02/18 12:28 04/02/18 12:28 04/02/18 12:28 04/02/18 12:28 Intake & Output 04/01/18 04/02/18 04/03/18 06:59 06:59 06:59 Intake Total 532 50 Output Total 700 800 Balance -168 -750 Weight 66.6 kg 65.7 kg General appearance: PRESENT: no acute distress, cooperative, disheveled, hard of hearing Teeth exam: PRESENT: edentulous Respiratory exam: PRESENT: decreased breath sounds, symmetrical, unlabored. ABSENT: accessory muscle use, crackles, prolonged expiratory phas, rhonchi, tachypnea, wheezes Cardiovascular exam: PRESENT: RRR Vascular exam: PRESENT: normal capillary refill, pallor GI/Abdominal exam: PRESENT: normal bowel sounds, soft. ABSENT: distended, guarding, rebound, tenderness Extremities exam: PRESENT: other - She had a left BKA and a right TKA with unremarkable stumps. ABSENT: joint swelling Musculoskeletal exam: PRESENT: deformity - Left BKA and right AKA as noted above Neurological exam: PRESENT: alert, awake, oriented to person, oriented to place, oriented to situation Psychiatric exam: PRESENT: flat affect Skin exam: PRESENT: dry, pallor, warm Results Laboratory Results: 03/30/18 05:46 03/31/18 11:12 03/28/18 12:32 Blood Blood Culture - Final NO GROWTH IN 5 DAYS 03/28/18 11:20 Blood Blood Culture - Final NO GROWTH IN 5 DAYS Impressions: Head CT 03/28/18 00:00 IMPRESSION: 1. No significant interval changes since the prior study dated 03/10/2018. No acute intracranial abnormality. 2. 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 3. A small air-fluid level in the sphenoid sinus suggest acute sinus disease. Correlation suggested. EVIDENCE OF ACUTE STROKE: NO. Chest X-Ray 03/28/18 12:12 IMPRESSION: 1. Interval resolution of the right upper lobe infiltrate since the prior study dated 03/10/2018. 2. There are new areas of mild increased parenchymal density in the left mid- lower lung zones and minimal changes at the right lung base, may be on the basis of infiltrates. Correlation suggested. 3. Interval removal of the Right IJ hemodialysis catheter, endotracheal and nasogastric tubes. Head MRI 03/28/18 15:26 IMPRESSION: Areas of diffusion restriction consistent with acute infarct in the right parietal region, as above. Remote lacunar infarct left thalamus. Significant motion artifact. Atrophy. Small vessel ischemic change. Partial opacification of the right mastoid air cells. copyright 2010 [employer]- All Rights Reserved Chest CT 03/28/18 15:43 IMPRESSION: 1. Multifocal airspace disease, more so in the left lung with fairly extensive consolidation in the left perihilar and left lower lobe with associated air bronchograms. Considerations for these findings include pneumonia. A follow-up examination following treatment for re-evaluation and to exclude any other underlying pathology. Bilateral small pleural effusions. 2. A few very small subcentimeter pulmonary nodules. 3. The visualized thyroid gland is heterogenous in appearance with asymmetric prominence of the left lobe which is almost completely replaced by a complex appearing nodule. Correlation with lab values and thyroid ultrasound. 4. Additional findings as above. Carotid Doppler Study 03/29/18 00:00 IMPRESSION: NO HEMODYNAMICALLY SIGNIFICANT STENOSIS. Thyroid Ultrasound 03/29/18 13:00 IMPRESSION: Dominant heterogeneous nodule within the left thyroid lobe measuring 1.6 x 2.2 x 1.8 cm which meets criteria for ultrasound-guided FNA. Additional nodules above. Qualifiers - * PATIENT BEING DISCHARGED WITH ANY OF THE FOLLOWING DIAGNOSIS: No
== END 2018-04-02 12:40 | disposition home or self-care (01) | DRG 177 ==
LOC: ER 10:15 → EH 17:27 → 3S 23:55
PROVIDERS: ADMIT Internal Medicine; ATTEND Internal Medicine
DX: J69.0 Pneumonitis due to inhalation of food and vomit (principal); J96.01 Acute respiratory failure with hypoxia; T83.511A Infection and inflammatory reaction due to indwelling urethral catheter, initial encounter; I69.351 Hemiplegia and hemiparesis following cerebral infarction affecting right dominant side; N18.4 Chronic kidney disease, stage 4 (severe); G93.49 Other encephalopathy; N39.0 Urinary tract infection, site not specified; L89.152 Pressure ulcer of sacral region, stage 2; E11.22 Type 2 diabetes mellitus with diabetic chronic kidney disease; E11.51 Type 2 diabetes mellitus with diabetic peripheral angiopathy without gangrene; E87.5 Hyperkalemia; Z93.1 Gastrostomy status; Z89.611 Acquired absence of right leg above knee; J44.9 Chronic obstructive pulmonary disease, unspecified; D63.1 Anemia in chronic kidney disease; E04.1 Nontoxic single thyroid nodule; I12.9 Hypertensive chronic kidney disease with stage 1 through stage 4 chronic kidney disease, or unspecified chronic kidney disease; H91.90 Unspecified hearing loss, unspecified ear; F32.9 Major depressive disorder, single episode, unspecified; J01.90 Acute sinusitis, unspecified; J20.9 Acute bronchitis, unspecified; Z91.040 Latex allergy status; Z79.82 Long term (current) use of aspirin; Z79.4 Long term (current) use of insulin; Z95.820 Peripheral vascular angioplasty status with implants and grafts; Z89.512 Acquired absence of left leg below knee; Z83.6 Family history of other diseases of the respiratory system; Z88.0 Allergy status to penicillin
CPT/HCPCS: 36415; 51702; 70450; 70551; 71045; 71250; 76536; 80048; 80053; 80061; 81001; 82607; 82728; 82746; 82803; 82962; 83036; 83540; 83550; 83605; 84443; 85025; 85027; 85045; 85610; 87040; 87086; 87804; 93005; 93010; 93880; 96365; 96375; 99285; J0360; J0610; J0696; J1610; J1650; J1652; J1815; J1956; J2060; J3010; J3490; J7030; Q4081

== ENCOUNTER 2018-04-18 10:49 | Inpatient (IN) | payer MEDICARE, OTHER ==
[2018-04-18 11:42] LABS: ABSOLUTE BASOPHILS # (AUTO) 0.1 10^3/uL (0.0-0.2); ABSOLUTE EOSINOPHILS # (AUTO) 0.3 10^3/uL (0.0-0.6); ABSOLUTE LYMPHOCYTES (AUTO) 1.5 10^3/uL (0.5-4.7); ABSOLUTE MONOCYTES (AUTO) 0.8 10^3/uL (0.1-1.4); ABSOLUTE NEUT (AUTO) 7.4 10^3/uL (1.7-8.2); BASOPHILS % (AUTO) 0.7 % (0-2); EOSINOPHILS % (AUTO) 3.1 % (0-6); HEMATOCRIT 32.3 % (36.0-47.0); HEMOGLOBIN 10.4 g/dL (12.0-15.5); LYMPHOCYTES % (AUTO) 14.5 % (13-45); MEAN CORPUSCULAR HEMOGLOBIN 29.4 pg (27.0-33.4); MEAN CORPUSCULAR HGB CONC 32.1 g/dL (32.0-36.0); MEAN CORPUSCULAR VOLUME 91 fl (80-97); MONOCYTES % (AUTO) 8.4 % (3-13); RED BLOOD COUNT 3.53 10^6/uL (3.72-5.28); RED CELL DISTRIBUTION WIDTH 15.4 % (11.5-14.0); SEGMENTED NEUTROPHILS % (AUTO) 73.3 % (42-78); TOTAL CELLS COUNTED % (AUTO) 100 %
--- NOTE | 2018-04-18 11:48 | RADIOLOGY REPORT (SQ) ---
EXAM DESCRIPTION: CHEST SINGLE VIEW COMPLETED DATE/TIME: 04/18/2018 11:33 am REASON FOR STUDY: low O2 sats COMPARISON: 03/28/2018 EXAM PARAMETERS: NUMBER OF VIEWS: One view. TECHNIQUE: Single frontal radiographic view of the chest acquired. RADIATION DOSE: NA LIMITATIONS: None. FINDINGS: LUNGS AND PLEURA: Interval resolution of the left mid-lower lung zones and right lower anabel ng zone infiltrates. No pneumothorax or pleural effusion. MEDIASTINUM AND HILAR STRUCTURES: No masses. Contour normal. HEART AND VASCULAR STRUCTURES: Heart normal in size. Normal vasculature. BONES: No acute findings. HARDWARE: None in the chest. OTHER: Calcified nodules are again identified overlying the left thoracic inlet. Smooth indentation on the left lateral wall of the trachea likely related to enlarged left thyroid lobe. These findings are stable since the prior study and the CT chest examination dated 03/28/2018. IMPRESSION: 1. Interval resolution of the infiltrates previously demonstrated in the left mid-left lower lower lung zones and the right lower lung zone. TECHNICAL DOCUMENTATION: JOB ID: [id number] [employer]- All Rights Reserved Reading location - IP/workstation name: [email or web address]
[2018-04-18 12:10] LABS: PLATELET COUNT 228 10^3/uL (150-450)
[2018-04-18 12:11] LABS: APPEARANCE,URINE TURBID; BILIRUBIN,URINE NEGATIVE (NEGATIVE); GLUCOSE, URINE NEGATIVE (NEGATIVE); KETONES,URINE TRACE mg/dL (NEGATIVE); LEUKOCYTE ESTERASE,URINE LARGE (NEGATIVE); NITRITE,URINE NEGATIVE (NEGATIVE); PROTEIN,URINE 100 mg/dL (NEGATIVE); URINE SPECIFIC GRAVITY 1.012; UROBILINOGEN,URINE NEGATIVE mg/dL (<2.0)
[2018-04-18 12:12] LABS: COLOR,URINE YELLOW
[2018-04-18 12:49] LABS: ALANINE AMINOTRANSFERASE 180 U/L (9-52); ALBUMIN 3.1 g/dL (3.5-5.0); ALKALINE PHOSPHATASE 175 U/L (38-126); ANION GAP 12 (5-19); ASPARTATE AMINO TRANSFERASE 290 U/L (14-36); BILIRUBIN,DIRECT 0.3 mg/dL (0.0-0.4); BILIRUBIN,TOTAL 0.5 mg/dL (0.2-1.3); BLOOD UREA NITROGEN 74 mg/dL (7-20); CALCIUM 9.3 mg/dL (8.4-10.2); CARBON DIOXIDE 26 mmol/L (22-30); CHLORIDE 96 mmol/L (98-107); CREATINE KINASE 30 U/L (30-135); POTASSIUM 5.9 mmol/L (3.6-5.0); SODIUM 133.6 mmol/L (137-145); TOTAL PROTEIN 6.1 g/dL (6.3-8.2)
[2018-04-18 12:55] LABS: GLUCOSE 63 mg/dL (75-110)
[2018-04-18] MEDS ORDERED: DEXTROSE 50%-WATER 25 GM/50 ML DISP.SYRIN IV ONE ×2 (13:06→13:17)
[2018-04-18 13:21] LABS: VENOUS BLOOD HCO3 27.3 mmol/L (20-32); VENOUS BLOOD PCO2 56.8 mmHg (35-63); VENOUS BLOOD PH 7.3 (7.30-7.42)
[2018-04-18 13:26] LABS: CREATINE KINASE MB 1.62 ng/mL (<4.55)
[2018-04-18 13:28] LABS: TROPONIN I < 0.012 ng/mL
[2018-04-18] MEDS ORDERED: NORMAL SALINE 1000 ML 1,000 ML IV ONE (14:42)
[2018-04-18] MEDS ORDERED: IPRATROPIUM/ALBUTEROL 0.5-2.5 MG/3 ML AMPUL NEB ONE (14:42)
[2018-04-18] MEDS ORDERED: CALCIUM GLUCONATE 1000 MG/10 ML INJ IV ONE (14:42)
[2018-04-18] MEDS ORDERED: SODIUM BICARBONATE 8.4% INJ 50 MEQ/50 ML DISP.SYRIN IV ONE ×2 (14:43→15:26)
--- NOTE | 2018-04-18 15:34 | ER Document Report ---
Entered by RAMU WILKINS SCRIBE 04/18/18 1306 Acting as scribe for:SAIGE LEY MD ED Respiratory Problem - General Chief Complaint: Shortness Of Breath Stated Complaint: DIFFICULTY BREATHING Time Seen by Provider: 04/18/18 11:02 Primary Care Provider: SHELBY RAYA MD [Primary Care Provider] - Follow up as needed Mode of Arrival: Medic Information source: Patient, Relative, Emergency Med Personnel, [facility] Records Notes: 67-year-old female who presents to the emergency department today with complaints of shortness of breath. According to family at bedside, the patient had an oxygen saturation between 40% and 50% this morning prior to arrival on room air. The patient was recently discharged from [facility] but in her discharge summary it did not mention anything about her breathing issues so she is not on home oxygen as Medicaid will not pay for it. EMS had an oxygen saturation in the low 50s on arrival as well, on arrival here the patient had an oxygen saturation 82% on room air which increased to 100% on 4 L. Family does note vomit on the patient's gown this morning. The oxygen was turned down at my request to maintain her sats in the 95% range, they are able to quickly lower the oxygen to 1 L and still maintain oxygen saturations of 95%. The family reports that she has been running high residuals after tube feeding, and they had decreased her feeding from 240 mL to 120 mL's, despite that she still has run high residuals, this may have contributed to her vomiting this morning. Chest x-ray does not suggest an aspiration in the pneumonia that was present on 03/28/2018 has cleared.. The patient had been admitted here on 03/28/2018 through 04/02/2018 for pneumonia. At that time she had urine that showed too numerous to count red cells and white cells as she did on a previous visit in March. A culture done on the 03/28/2018 visit grew Ashley in the urine but no bacteria. She was started on Diflucan yesterday by her primary care provider. TRAVEL OUTSIDE OF THE [place] IN LAST 30 DAYS: No - Related Data Allergies/Adverse Reactions: heparin Allergy (Intermediate, Verified 03/31/18 10:14) Hives latex [Latex] Allergy (Mild, Verified 12/31/17 17:56) RASH Penicillins Allergy (Mild, Verified 12/31/17 17:56) RASH, BREATHING DIFFICULTY codeine Allergy (Verified 12/31/17 17:56) Past Medical History - General Information source: Patient, Relative, Emergency Med Personnel, [facility] Records - Social History Smoking Status: Former Smoker Cigarette use (# per day): No Chew tobacco use (# tins/day): No Smoking Education Provided: No Frequency of alcohol use: None Drug Abuse: None Lives with: Family Family History: Reviewed & Not Pertinent, CAD, COPD Patient has suicidal ideation: No Patient has homicidal ideation: No - Past Medical History Cardiac Medical History: Reports: Hx Hypertension, Hx Peripheral Vascular Disease Pulmonary Medical History: Reports: Hx COPD Neurological Medical History: Reports: Hx Cerebrovascular Accident - 2 years ago and then couple of weeks ago. Chronic right sided weakness. Endocrine Medical History: Reports: Hx Diabetes Mellitus Type 2 Renal/ Medical History: Reports: Hx Renal Insufficiency, Other - Both patient did recently have renal failure requiring brief dialysis. Musculoskeletal Medical History: Reports Other - Contractures to the right upper extremity secondary to old CVA. Psychiatric Medical History: Reports: Hx Depression Past Surgical History: Reports: Hx Abdominal Surgery - Gastrostomy tube, Hx Hysterectomy, Hx Orthopedic Surgery - Bilateral BKA, Hx Vascular Surgery - Failed angioplasty and stenting into the lower extremities. Review of Systems - Review of Systems Notes: Patient is nonverbal, given by family at bedside Constitutional: No symptoms reported EENT: No symptoms reported Cardiovascular: No symptoms reported Respiratory: See HPI, Short of breath, Wheezing Gastrointestinal: No symptoms reported Genitourinary: No symptoms reported Female Genitourinary: No symptoms reported Musculoskeletal: No symptoms reported Skin: No symptoms reported Hematologic/Lymphatic: No symptoms reported Neurological/Psychological: No symptoms reported -: Yes All other systems reviewed and negative Physical Exam - Vital signs Vitals: Pulse Ox 82 L 04/18/18 10:57 - Notes Notes: Physical Exam: General: Alert but nonverbal. HEENT: Normocephalic. Atraumatic. PERRL. Extraocular movements intact. Oropharynx clear. Neck: Supple. Non-tender. Respiratory: No respiratory distress. Clear and equal breath sounds bilaterally. Cardiovascular: Regular rate and rhythm. Abdominal: Normal Inspection. Non-tender. No distension. Normal Bowel Sounds. Back: Non-tender. No deformity or step off. Extremities: Upper extremities: Normal inspection. Normal ROM. Lower extremities: Right AKA, left BKA. Neurological: Nonverbal. Skin: Warm. Dry. Normal color. Course - Re-evaluation Re-evalutation: 04/18/18 15:12 The patient's venous blood gas today had a pH of 7.30, PCO2 56.8, on 03/28/2018 she had pH 7.44 and a PCO2 of 40.3 This would suggest that the hypoxia that was seen this morning may have been due to hypoventilation. She was somewhat non-interactive when I first saw her this morning. Later in the day she is wide awake smiling talking and does recall seeing me when I came in the room earlier today. I suspect that she may have had a transient ischemic type event or some other reason to have been hyperventilating and so lethargic earlier today. Given that the only suggestion of TIA is now suspected based on the mental status improving, and the lab work suggesting hypoventilation, and the fact that she did not have any new motor deficits, she was not a TPA candidate when she first came into the emergency room. - Vital Signs Vital signs: Temp Pulse Resp BP Pulse Ox 98.2 F 16 125/61 94 04/18/18 11:00 04/18/18 14:01 04/18/18 14:00 04/18/18 14:01 - Laboratory Result Diagrams: 04/18/18 10:15 04/18/18 12:10 Laboratory results interpreted by me: 04/18/18 04/18/18 04/18/18 10:15 11:55 12:10 RBC 3.53 L Hgb 10.4 L Hct 32.3 L RDW 15.4 H Sodium 133.6 L Potassium 5.9 H Chloride 96 L BUN 74 H Creatinine 2.54 H Est GFR ( Amer) 23 L Est GFR (Non-Af Amer) 19 L Glucose 63 L POC Glucose AST 290 H ALT 180 H Alkaline Phosphatase 175 H Total Protein 6.1 L Albumin 3.1 L Urine Protein 100 H Urine Ketones TRACE H Urine Blood MODERATE H Ur Leukocyte Esterase LARGE H 04/18/18 13:48 RBC Hgb Hct RDW Sodium Potassium Chloride BUN Creatinine Est GFR ( Amer) Est GFR (Non-Af Amer) Glucose POC Glucose 141 H AST ALT Alkaline Phosphatase Total Protein Albumin Urine Protein Urine Ketones Urine Blood Ur Leukocyte Esterase - Diagnostic Test Radiology reviewed: Image reviewed, Reports reviewed - Chest x-ray shows interval clearing of the pneumonias that were seen on 03/08/2018. - EKG Interpretation by Me EKG shows normal: Sinus rhythm, Voss, Intervals, QRS Complexes, ST-T Waves Rate: Normal - 87 Rhythm: NSR Voltage: Consistant with LVH, Decreased voltage - Consults Dr. Cottrell Time consulted: 14:29 Consulted provider: will come to ER Critical Care Note - Critical Care Note Total time excluding time spent on procedures (mins): 45 Discharge - Discharge Clinical Impression: Hypoxemia, Hypoglycemia, Hyperkalemia Altered mental status Qualifiers: Altered mental status type: transient alteration of awareness Qualified Code(s): R40.4 - Transient alteration of awareness Condition: Stable Disposition: ADMITTED OBSERVATION Admitting Provider: Hospitalist Unit Admitted: Telemetry Referrals: SHELBY RAYA MD [Primary Care Provider] - Follow up as needed Scribe Attestation: 04/18/18 13:19 I personally performed the services described in the documentation, reviewed and edited the documentation which was dictated to the scribe in my presence, and it accurately records my words and actions. I personally performed the services described in the documentation, reviewed and edited the documentation which was dictated to the scribe in my presence, and it accurately records my words and actions.
[2018-04-18] MEDS ORDERED: ONDANSETRON HCL INJ/PF 4 MG/2 ML SDV IV PRN (18:08)
[2018-04-18] MEDS ORDERED: DEXTROSE 50%-WATER 25 GM/50 ML DISP.SYRIN IV PRN ×2 (18:08)
[2018-04-18] MEDS ORDERED: DEXTROSE 40% GEL 15 GM TUBE PO PRN ×2 (18:08)
[2018-04-18] MEDS ORDERED: GLUCAGON,HUMAN RECOMB 1 MG INJ SUBCUT PRN (18:08)
[2018-04-18] MEDS ORDERED: NORMAL SALINE 1000 ML 1,000 ML IV PRN (18:08)
[2018-04-18] MEDS ORDERED: IPRATROPIUM/ALBUTEROL 0.5-2.5 MG/3 ML AMPUL NEB PRN (18:15)
[2018-04-18] MEDS ORDERED: (PENDING PHARMACY ID) (Buprenorphine [Butrans] 1 PATCH) TD SCH (18:15)
--- NOTE | 2018-04-18 18:59 | PDOC H&P ---
History of Present Illness Admission Date/PCP: 04/18/18 15:49 SHELBY RAYA MD Patient complains of: Altered level of consciousness History of Present Illness: GEORGE LAUGHLIN is a 67 year old female this is the third admission for this pleasant 67-year-old female since March 08. She has had an admission for her stroke in early March with subsequent admission for pneumonia April 02. She now presents for altered mental status. Evidently they patient was feeling short of breath. She has a pulse oximeter at home. The son tested her pulse oximetry and it was less than 50%. The patient was asymptomatic. Hypoxemia was confirmed in the emergency department. The patient was 84% on room air and required 4 L of nasal cannula oxygen initially. This successfully brought her pulse ox to 100%. She was tapered down to 1 L while in the emergency room in ad dition the patient was found to have hyperkalemia, respiratory acidosis, acute on chronic kidney injury and possible cystitis. Past Medical History Cardiac Medical History: Reports: Hypertension, Peripheral Vascular Disease Denies: Atrial Fibrillation, Congestive Heart Failure, Myocardial Infarction, Pulmonary Embolism Pulmonary Medical History: Reports: Chronic Obstructive Pulmonary Disease (COPD) Denies: Asthma Neurological Medical History: Denies: Seizures Endocrine Medical History: Reports: Diabetes Mellitus Type 2 Renal/ Medical History: Reports: Other - Both patient did recently have renal failure requiring brief dialysis. 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 Psychiatric Medical History: Reports: Depression Hematology: Denies: Anemia, Sickle Cell Disease Past Surgical History Past Surgical History: Reports: Hysterectomy, Orthopedic Surgery - Bilateral BKA, Vascular Surgery - Failed angioplasty and stenting into the lower extremities. Denies: Amputation, Mastectomy, Pacemaker Social History Information Source: Patient Lives with: Family Smoking Status: Former Smoker Frequency of Alcohol Use: None Hx Recreational Drug Use: No Drugs: None Hx Prescription Drug Abuse: No - Advance Directive Resuscitation Status: Do Not Resuscitate Surrogate healthcare decision maker:: The patient was very clear about her DNR status. I believe we have a copy on file at the hospital since she has been admitted twice already since March. Family History Family History: Reviewed & Not Pertinent, CAD, COPD Parental Family History Reviewed: Yes Children Family History Reviewed: Yes Sibling(s) Family History Reviewed.: Yes Medication/Allergy Home Medications: Amlodipine Besylate [Norvasc 5 mg Tablet] 5 mg PO DAILY 03/28/18 Clonidine HCl [Clonidine HCl ER] 0.1 mg PO Q12 03/28/18 Insulin Aspart [Novolog Flexpen] 0 unit SUBCUT .SLD SCALE 03/28/18 Buprenorphine [Butrans] 1 patch TD Q7D 04/18/18 Metoprolol Tartrate [Lopressor 25 mg Tablet] 12.5 mg PO Q12 04/18/18 Naloxone HCl [Narcan] 1 spray NASL DAILY PRN 04/18/18 Nystatin [Mycostatin Cream 15 gm] 15 applic TP QID 04/18/18 Oxycodone HCl [Oxy-Ir 5 mg Tablet] 5 mg PO Q4HP PRN 04/18/18 Allergies/Adverse Reactions: heparin Allergy (Intermediate, Verified 03/31/18 10:14) Hives latex [Latex] Allergy (Mild, Verified 12/31/17 17:56) RASH Penicillins Allergy (Mild, Verified 12/31/17 17:56) RASH, BREATHING DIFFICULTY codeine Allergy (Verified 12/31/17 17:56) Review of Systems Constitutional: PRESENT: as per HPI, fatigue. ABSENT: fever(s), headache(s), night sweats Ears: ABSENT: hearing changes Nose, Mouth, and Throat: ABSENT: mouth pain, sore throat Respiratory: PRESENT: dyspnea Gastrointestinal: ABSENT: constipation, diarrhea, heartburn, nausea, vomiting Genitourinary: ABSENT: dysuria, hematuria Musculoskeletal: PRESENT: other - Left below-knee amputation and right above- knee amputation Integumentary: ABSENT: diaphoresis, lesions, rash Neurological: PRESENT: focal weakness, other - Bedbound Psychiatric: ABSENT: anxiety, depression Endocrine: ABSENT: cold intolerance, heat intolerance Hematologic/Lymphatic: ABSENT: easy bleeding, easy bruising Physical Exam Vital Signs: Temp Pulse Resp BP Pulse Ox 98.2 F 17 138/59 H 95 04/18/18 18:02 04/18/18 17:01 04/18/18 18:00 04/18/18 18:01 General appearance: PRESENT: cooperative, mild distress, well-developed Head exam: PRESENT: atraumatic, normocephalic Ear exam: PRESENT: TM's normal bilaterally Mouth exam: PRESENT: moist Respiratory exam: PRESENT: clear to auscultation nicole - Anteriorly, symmetrical, unlabored. ABSENT: crackles, rales, stridor, tachypnea, wheezes Cardiovascular exam: PRESENT: RRR, +S1, +S2, systolic murmur - 2/6 GI/Abdominal exam: PRESENT: normal bowel sounds, soft, other - PEG tube left side of abdomen. ABSENT: guarding, tenderness Rectal exam: PRESENT: deferred Neurological exam: PRESENT: alert, awake, oriented to person, oriented to place, oriented to situation Psychiatric exam: PRESENT: flat affect. ABSENT: agitated, anxious Results Laboratory Results: 04/18/18 10:15 04/18/18 12:10 04/18/18 04/18/18 04/18/18 10:15 11:55 12:10 WBC 10.0 RBC 3.53 L Hgb 10.4 L Hct 32.3 L MCV 91 MCH 29.4 MCHC 32.1 RDW 15.4 H Plt Count 228 Seg Neutrophils % 73.3 Lymphocytes % 14.5 Monocytes % 8.4 Eosinophils % 3.1 Basophils % 0.7 Absolute Neutrophils 7.4 Absolute Lymphocytes 1.5 Absolute Monocytes 0.8 Absolute Eosinophils 0.3 Absolute Basophils 0.1 VBG pH VBG pCO2 VBG HCO3 VBG Base Excess Sodium 133.6 L Potassium 5.9 H Chloride 96 L Carbon Dioxide 26 Anion Gap 12 BUN 74 H Creatinine 2.54 H Est GFR ( Amer) 23 L Est GFR (Non-Af Amer) 19 L Glucose 63 L Lactic Acid Calcium 9.3 Total Bilirubin 0.5 AST 290 H ALT 180 H Alkaline Phosphatase 175 H Total Protein 6.1 L Albumin 3.1 L Urine Color YELLOW Urine Appearance TURBID Urine pH 5.0 Ur Specific [place] 1.012 Urine Protein 100 H Urine Glucose (UA) NEGATIVE Urine Ketones TRACE H Urine Blood MODERATE H Urine Nitrite NEGATIVE Ur Leukocyte Esterase LARGE H Urine WBC (Auto) >182 Urine RBC (Auto) 46 04/18/18 04/18/18 12:28 12:28 WBC RBC Hgb Hct MCV MCH MCHC RDW Plt Count Seg Neutrophils % Lymphocytes % Monocytes % Eosinophils % Basophils % Absolute Neutrophils Absolute Lymphocytes Absolute Monocytes Absolute Eosinophils Absolute Basophils VBG pH 7.30 VBG pCO2 56.8 VBG HCO3 27.3 VBG Base Excess 0 Sodium Potassium Chloride Carbon Dioxide Anion Gap BUN Creatinine Est GFR ( Amer) Est GFR (Non-Af Amer) Glucose Lactic Acid 0.8 Calcium Total Bilirubin AST ALT Alkaline Phosphatase Total Protein Albumin Urine Color Urine Appearance Urine pH Ur Specific [place] Urine Protein Urine Glucose (UA) Urine Ketones Urine Blood Urine Nitrite Ur Leukocyte Esterase Urine WBC (Auto) Urine RBC (Auto) 04/18/18 04/18/18 12:10 12:28 Creatine Kinase 30 CK-MB (CK-2) 1.62 Troponin I < 0.012 Impressions: Chest X-Ray 04/18/18 11:17 IMPRESSION: 1. Interval resolution of the infiltrates previously demonstrated in the left mid-left lower lower lung zones and the right lower lung zone. Assessment & Plan - Diagnosis (1) Altered mental status Qualifiers: Altered mental status type: somnolence Qualified Code(s): R40.0 - Somnolence Is this a current diagnosis for this admission?: Yes Plan: It is difficult to identify the exact etiology of the patient's altered mental state. With her elevated PCO2 there could have been a transient window of hypoventilation. With her history of stroke this could have been a TIA. She also had hypoglycemia and hyperkalemia. She has acute on chronic kidney failure. She just recently had pneumonia. When the patient was placed on oxygen she clearly improved and improved fairly quickly. She was also given dextrose until depending on where her hemoglobin A1c level is a glucose of 60 could have been extremely low for this patient. It is possible that she was even lower and was recovering slowly. At the time of this encounter she was awake, alert, oriented and participating in the encounter. (2) Acute on chronic respiratory failure with hypoxia and hypercapnia Is this a current diagnosis for this admission?: Yes Plan: As noted above the patient had an elevated PCO2 as well as an oxygen saturation of 84% on room air at the time of admission. There were no scheduled inhalers on her medication list. I have ordered nebulizer treatments to be available if needed. Oxygen supplementation to keep pulse ox greater than 90%. (3) Hyperkalemia Is this a current diagnosis for this admission?: Yes Plan: The patient was given IV fluids and glucose. I have asked to recheck the electrolytes this evening. (4) Hypoglycemia Is this a current diagnosis for this admission?: Yes Plan: The patient's most recent hemoglobin A1c was 5.2 on March 29. It is surprisin g that she would drop to 60 unless she administered an incorrect dose of insulin She was given dextrose in the emergency department. She is awake and alert. We will continue to monitor her glucose by Accu-Chek. (5) CKD (chronic kidney disease) stage 4, GFR 15-29 ml/min Is this a current diagnosis for this admission?: Yes Plan: Gentle IV fluids. Continue to monitor renal function. (6) Abnormal liver enzymes Is this a current diagnosis for this admission?: Yes Plan: Unsure of the etiology of the abnormal liver enzymes. I do not believe that there is any history of liver disease. I reviewed records from the multiple previous admissions and never found enzymes as high as this. Will recheck in the morning. We may need to image the abdomen. (7) Dysphagia as late effect of stroke Is this a current diagnosis for this admission?: Yes Plan: Medications, tube feeds and water boluses through the PEG tube. - Time Time Spent: 50 to 70 Minutes Medications reviewed and adjusted accordingly: Yes Anticipated discharge: Home Within: within 48 hours
[2018-04-18 20:19] LABS: ANION GAP 8 (5-19); BLOOD UREA NITROGEN 74 mg/dL (7-20); CALCIUM 8.6 mg/dL (8.4-10.2); CARBON DIOXIDE 25 mmol/L (22-30); CHLORIDE 101 mmol/L (98-107); POTASSIUM 5.3 mmol/L (3.6-5.0); SODIUM 134.3 mmol/L (137-145)
[2018-04-18 20:40] LABS: GLUCOSE 62 mg/dL (75-110)
[2018-04-18] MEDS ORDERED: (PENDING PHARMACY ID) (Clonidine Hcl [Clonidine Hcl Er] 0.1 MG) PEG SCH (22:00)
[2018-04-18] MEDS: METOPROLOL TARTRATE 25 MG TABLET PEG SCH (22:08)
[2018-04-18] MEDS: CLONIDINE HCL 0.1 MG TABLET PO SCH (22:08)
--- NOTE | 2018-04-18 23:18 | EKG REPORT ---
SEVERITY:- ABNORMAL ECG - SINUS RHYTHM LOW VOLTAGE IN FRONTAL LEADS CONSIDER LEFT VENTRICULAR HYPERTROPHY : Confirmed by: Liya De Leon MD 18-Apr-2018 23:18:27
[2018-04-18] MEDS: INSULIN LISPRO 100 UNIT/ML 3 ML VIAL SUBCUT SCH (23:41)
[2018-04-19 06:08] LABS: ALANINE AMINOTRANSFERASE 117 U/L (9-52); ALBUMIN 2.2 g/dL (3.5-5.0); ALKALINE PHOSPHATASE 125 U/L (38-126); ANION GAP 6 (5-19); ASPARTATE AMINO TRANSFERASE 149 U/L (14-36); BILIRUBIN,DIRECT 0.3 mg/dL (0.0-0.4); BILIRUBIN,TOTAL 0.3 mg/dL (0.2-1.3); CARBON DIOXIDE 27 mmol/L (22-30); CHLORIDE 103 mmol/L (98-107); GLUCOSE 93 mg/dL (75-110); POTASSIUM 5.1 mmol/L (3.6-5.0); SODIUM 136.2 mmol/L (137-145); TOTAL PROTEIN 4.7 g/dL (6.3-8.2)
[2018-04-19] MEDS: INSULIN LISPRO 100 UNIT/ML 3 ML VIAL SUBCUT SCH ×4 (06:10→23:30)
[2018-04-19] MEDS: CLONIDINE HCL 0.1 MG TABLET PO SCH ×2 (09:54→21:28)
[2018-04-19] MEDS: AMLODIPINE BESYLATE 5 MG TABLET PEG SCH (09:54)
[2018-04-19] MEDS: METOPROLOL TARTRATE 25 MG TABLET PEG SCH ×2 (09:54→21:28)
[2018-04-19] MEDS: ACETAMINOPHEN 325 MG TABLET PEG PRN ×2 (16:31→20:36)
[2018-04-19] MEDS: OXYCODONE HCL IR 5 MG TABLET PEG PRN ×2 (16:32→20:35)
--- NOTE | 2018-04-19 19:01 | PDOC PROGRESS REPORT ---
Subjective Progress Note for:: 04/19/18 Subjective:: No adverse events overnight. She seems sad today and generally just kept saying that she wanted to go home. She is tolerating her continuous tube feeds without incident. She is apparently more alert awake and interactive than she was yesterday. Reason For Visit: HYPOXEMIA,HYPERKALEMIA,ALTERED MENTAL STATUS Physical Exam Vital Signs: Temp Pulse Resp BP Pulse Ox 98.6 F 73 16 131/44 H 95 04/19/18 15:27 04/19/18 15:27 04/19/18 15:27 04/19/18 15:27 04/19/18 15:27 Intake & Output 04/18/18 04/19/18 04/20/18 06:59 06:59 06:59 Intake Total 1000 1119 Output Total 720 Balance 1000 399 Weight 60.1 kg General appearance: PRESENT: no acute distress, cooperative, disheveled Teeth exam: PRESENT: edentulous Respiratory exam: PRESENT: clear to auscultation nicole, symmetrical, unlabored. ABSENT: accessory muscle use, crackles, prolonged expiratory phas, rhonchi, tachypnea, wheezes Cardiovascular exam: PRESENT: RRR, +S1, +S2 Vascular exam: PRESENT: normal capillary refill GI/Abdominal exam: PRESENT: normal bowel sounds, soft. ABSENT: distended, guarding, rebound, tenderness Extremities exam: PRESENT: other - Bilateral lower extremity amputee. ABSENT: clubbing Musculoskeletal exam: ABSENT: tenderness Neurological exam: PRESENT: alert, awake, oriented to person, oriented to place, oriented to situation Psychiatric exam: PRESENT: depressed Skin exam: PRESENT: dry, pallor, warm Results Laboratory Results: 04/18/18 10:15 04/19/18 05:24 04/18/18 04/19/18 19:30 05:24 Sodium 134.3 L 136.2 L Potassium 5.3 H 5.1 H Chloride 101 103 Carbon Dioxide 25 27 Anion Gap 8 6 BUN 74 H Creatinine 2.32 H Est GFR ( Amer) 25 L Est GFR (Non-Af Amer) 21 L Glucose 62 L 93 Calcium 8.6 Total Bilirubin 0.3 AST 149 H ALT 117 H Alkaline Phosphatase 125 Total Protein 4.7 L Albumin 2.2 L 04/18/18 11:55 Carrillo Catheter Urine Culture - Final C.albicans/C.dubliniensis 04/18/18 04/18/18 12:10 12:28 Creatine Kinase 30 CK-MB (CK-2) 1.62 Troponin I < 0.012 Impressions: Chest X-Ray 04/18/18 11:17 IMPRESSION: 1. Interval resolution of the infiltrates previously demonstrated in the left mid-left lower lower lung zones and the right lower lung zone. Assessment & Plan - Diagnosis (1) Altered mental status Qualifiers: Altered mental status type: somnolence Qualified Code(s): R40.0 - Somnolence Is this a current diagnosis for this admission?: Yes Plan: Resolved. She is back to baseline. (2) Hypoxemia Is this a current diagnosis for this admission?: Yes Plan: Stable on 1 L per nasal cannula. We will wean as tolerated. (3) CKD (chronic kidney disease) stage 4, GFR 15-29 ml/min Is this a current diagnosis for this admission?: Yes Plan: Creatinine is at baseline (4) Hypoglycemia Is this a current diagnosis for this admission?: Yes Plan: It seems like she was not getting the right amount of nutritional support at home. I am told it is estimated she was getting between 600 to 700 bella a day on the feeding regimen her son was giving her at home. We have got her on a continuous tube feeding regimen which she is tolerating. We hope to be able to set this up for her at home. - Time Time Spent with patient: 25-34 minutes
[2018-04-20] MEDS: INSULIN LISPRO 100 UNIT/ML 3 ML VIAL SUBCUT SCH ×3 (05:36→18:07)
[2018-04-20] MEDS: AMLODIPINE BESYLATE 5 MG TABLET PEG SCH (09:09)
[2018-04-20] MEDS: OXYCODONE HCL IR 5 MG TABLET PEG PRN ×2 (09:09→15:45)
[2018-04-20] MEDS: ACETAMINOPHEN 325 MG TABLET PEG PRN ×2 (09:10→15:44)
[2018-04-20] MEDS: CLONIDINE HCL 0.1 MG TABLET PO SCH ×2 (09:11→21:54)
[2018-04-20] MEDS: METOPROLOL TARTRATE 25 MG TABLET PEG SCH ×2 (09:12→21:55)
[2018-04-20] MEDS: NYSTATIN TOPICAL POWDER 15 GM TP SCH ×3 (12:33→21:48)
[2018-04-20] MEDS: NYSTATIN CREAM 15 GM TP SCH ×2 (12:34→21:49)
[2018-04-20] MEDS: FLUCONAZOLE 100 MG in CONTAINER,EMPTY 1 EACH IV SCH (16:53)
--- NOTE | 2018-04-20 17:39 | PDOC PROGRESS REPORT ---
Subjective Progress Note for:: 04/20/18 Subjective:: No adverse events overnight. Complaining of some discomfort in her groin and under her skin folds. She is been tolerating her tube feeds. Reason For Visit: HYPOXEMIA,HYPERKALEMIA,ALTERED MENTAL STATUS Physical Exam Vital Signs: Temp Pulse Resp BP Pulse Ox 97.9 F 70 16 150/57 H 97 04/20/18 17:20 04/20/18 17:20 04/20/18 17:20 04/20/18 17:20 04/20/18 17:20 Intake & Output 04/19/18 04/20/18 04/21/18 06:59 06:59 06:59 Intake Total 1000 1369 250 Output Total 870 Balance 1000 499 250 Weight 60.1 kg 64 kg General appearance: PRESENT: no acute distress, cooperative, disheveled Teeth exam: PRESENT: edentulous Respiratory exam: PRESENT: clear to auscultation nicole, symmetrical, unlabored. ABSENT: accessory muscle use, crackles, prolonged expiratory phas, rhonchi, tachypnea, wheezes Cardiovascular exam: PRESENT: RRR, +S1, +S2 Vascular exam: PRESENT: normal capillary refill GI/Abdominal exam: PRESENT: normal bowel sounds, soft. ABSENT: distended, guarding, rebound, tenderness Extremities exam: PRESENT: other - Bilateral lower extremity amputee. ABSENT: clubbing Musculoskeletal exam: ABSENT: tenderness Neurological exam: PRESENT: alert, awake, oriented to person, oriented to place, oriented to situation Psychiatric exam: PRESENT: depressed Skin exam: PRESENT: dry, pallor, warm, candidiasis in the groin and under her breasts and axillae Results Laboratory Results: 04/18/18 10:15 04/19/18 05:24 04/18/18 11:55 Carrillo Catheter Urine Culture - Final C.albicans/C.dubliniensis 04/18/18 04/18/18 12:10 12:28 Creatine Kinase 30 CK-MB (CK-2) 1.62 Troponin I < 0.012 Impressions: Chest X-Ray 04/18/18 11:17 IMPRESSION: 1. Interval resolution of the infiltrates previously demonstrated in the left mid-left lower lower lung zones and the right lower lung zone. Assessment & Plan - Diagnosis (1) Altered mental status Qualifiers: Altered mental status type: somnolence Qualified Code(s): R40.0 - Somnolence Is this a current diagnosis for this admission?: Yes Plan: Resolved. She is back to baseline. (2) Hypoxemia Is this a current diagnosis for this admission?: Yes Plan: Stable on 1 L per nasal cannula. We will wean as tolerated. (3) CKD (chronic kidney disease) stage 4, GFR 15-29 ml/min Is this a current diagnosis for this admission?: Yes Plan: Creatinine is at baseline (4) Hypoglycemia Is this a current diagnosis for this admission?: Yes Plan: It seems like she was not getting the right amount of nutritional support at home. I am told it is estimated she was getting between 600 to 700 bella a day on the feeding regimen her son was giving her at home. We have got her on a continuous tube feeding regimen which she is tolerating. We hope to be able to set this up for her at home. She is currently 25 mL's an hour, we will try to increase this up to 45 mL's an hour. (5) Candidiasis of skin Is this a current diagnosis for this admission?: Yes Plan: We started her on some Diflucan, along with some nystatin cream and powder. - Time Time Spent with patient: 25-34 minutes
[2018-04-21] MEDS: INSULIN LISPRO 100 UNIT/ML 3 ML VIAL SUBCUT SCH ×4 (00:33→18:00)
[2018-04-21] MEDS: NYSTATIN TOPICAL POWDER 15 GM TP SCH ×3 (06:31→21:35)
[2018-04-21] MEDS: NYSTATIN CREAM 15 GM TP SCH ×3 (06:31→21:37)
[2018-04-21 10:51] LABS: ANION GAP 8 (5-19); BLOOD UREA NITROGEN 66 mg/dL (7-20); CALCIUM 9.2 mg/dL (8.4-10.2); CARBON DIOXIDE 26 mmol/L (22-30); CHLORIDE 105 mmol/L (98-107); GLUCOSE 89 mg/dL (75-110); POTASSIUM 5.2 mmol/L (3.6-5.0); SODIUM 138.5 mmol/L (137-145)
[2018-04-21] MEDS: AMLODIPINE BESYLATE 5 MG TABLET PEG SCH (11:31)
[2018-04-21] MEDS: METOPROLOL TARTRATE 25 MG TABLET PEG SCH ×2 (11:31→21:36)
[2018-04-21] MEDS: CLONIDINE HCL 0.1 MG TABLET PO SCH ×2 (11:31→21:37)
[2018-04-21] MEDS: FLUCONAZOLE 100 MG in CONTAINER,EMPTY 1 EACH IV SCH (11:33)
[2018-04-21] MEDS: OXYCODONE HCL IR 5 MG TABLET PEG PRN (15:19)
--- NOTE | 2018-04-21 17:59 | PDOC PROGRESS REPORT ---
Subjective Progress Note for:: 04/21/18 Subjective:: No adverse events overnight. She says the discomfort in her skin fold is improving. She is tolerating her tube feeds. We increased her up to 35 mL's an hour earlier and she is been tolerating it for the last several hours. Reason For Visit: HYPOXEMIA,HYPERKALEMIA,ALTERED MENTAL STATUS Physical Exam Vital Signs: Temp Pulse Resp BP Pulse Ox 97.9 F 70 17 136/49 H 98 04/21/18 17:33 04/21/18 17:33 04/21/18 17:33 04/21/18 17:33 04/21/18 17:33 Intake & Output 04/20/18 04/21/18 04/22/18 06:59 06:59 06:59 Intake Total 1369 300 33 Output Total 870 Balance 499 300 33 Weight 64 kg 64.4 kg General appearance: PRESENT: no acute distress, cooperative, disheveled Teeth exam: PRESENT: edentulous Respiratory exam: PRESENT: clear to auscultation nicole, symmetrical, unlabored. ABSENT: accessory muscle use, crackles, prolonged expiratory phase, rhonchi, tachypnea, wheezes Cardiovascular exam: PRESENT: RRR, +S1, +S2 Vascular exam: PRESENT: normal capillary refill GI/Abdominal exam: PRESENT: normal bowel sounds, soft. ABSENT: distended, guarding, rebound, tenderness Extremities exam: PRESENT: other - Bilateral lower extremity amputee. ABSENT: clubbing Musculoskeletal exam: ABSENT: tenderness Neurological exam: PRESENT: alert, awake, oriented to person, oriented to place, oriented to situation Psychiatric exam: PRESENT: depressed Skin exam: PRESENT: dry, pallor, warm, candidiasis in the groin and under her breasts and axillae has reduced in intensity Results Laboratory Results: 04/18/18 10:15 04/21/18 10:04 04/21/18 10:04 Sodium 138.5 Potassium 5.2 H Chloride 105 Carbon Dioxide 26 Anion Gap 8 BUN 66 H Creatinine 2.04 H Est GFR ( Amer) 29 L Est GFR (Non-Af Amer) 24 L Glucose 89 Calcium 9.2 04/18/18 04/18/18 12:10 12:28 Creatine Kinase 30 CK-MB (CK-2) 1.62 Troponin I < 0.012 Impressions: Chest X-Ray 04/18/18 11:17 IMPRESSION: 1. Interval resolution of the infiltrates previously demonstrated in the left mid-left lower lower lung zones and the right lower lung zone. Assessment & Plan - Diagnosis (1) Altered mental status Qualifiers: Altered mental status type: somnolence Qualified Code(s): R40.0 - Somnolence Is this a current diagnosis for this admission?: Yes Plan: Resolved. She is back to baseline. (2) Hypoxemia Is this a current diagnosis for this admission?: Yes Plan: Stable on 1 L per nasal cannula. We will wean as tolerated. (3) CKD (chronic kidney disease) stage 4, GFR 15-29 ml/min Is this a current diagnosis for this admission?: Yes Plan: Creatinine is at baseline (4) Hypoglycemia Is this a current diagnosis for this admission?: Yes Plan: It seems like she was not getting the right amount of nutritional support at home. I am told it is estimated she was getting between 600 to 700 bella a day on the feeding regimen her son was giving her at home. We have got her on a contin uous tube feeding regimen which she is tolerating. We hope to be able to set this up for her at home. She is currently 25 mL's an hour, we will try to increase this up to 45 mL's an hour. If she is tolerating that by tomorrow, will probably discharge her home at that time. (5) Candidiasis of skin Is this a current diagnosis for this admission?: Yes Plan: We started her on some Diflucan, along with some nystatin cream and powder. She is responding well to it. - Time Time Spent with patient: 15-24 minutes
[2018-04-22] MEDS: INSULIN LISPRO 100 UNIT/ML 3 ML VIAL SUBCUT SCH ×4 (02:31→22:27)
[2018-04-22] MEDS: NYSTATIN CREAM 15 GM TP SCH ×3 (06:00→22:26)
[2018-04-22] MEDS: NYSTATIN TOPICAL POWDER 15 GM TP SCH ×3 (06:00→22:25)
[2018-04-22] MEDS: METOPROLOL TARTRATE 25 MG TABLET PEG SCH ×2 (10:27→22:24)
[2018-04-22] MEDS: AMLODIPINE BESYLATE 5 MG TABLET PEG SCH (10:28)
[2018-04-22] MEDS: FLUCONAZOLE 100 MG in CONTAINER,EMPTY 1 EACH IV SCH (10:29)
[2018-04-22] MEDS: CLONIDINE HCL 0.1 MG TABLET PO SCH ×2 (10:29→22:22)
[2018-04-22] MEDS: OXYCODONE HCL IR 5 MG TABLET PEG PRN (10:34)
--- NOTE | 2018-04-22 17:22 | PDOC PROGRESS REPORT ---
Subjective Progress Note for:: 04/22/18 Subjective:: No adverse events overnight. No new complaints. Results were going to be able to send her home today but the home health agency cannot deliver her tube feed pump until Wednesday. Reason For Visit: HYPOXEMIA,HYPERKALEMIA,ALTERED MENTAL STATUS Physical Exam Vital Signs: Temp Pulse Resp BP Pulse Ox 98.0 F 80 16 167/59 H 94 04/22/18 12:00 04/22/18 12:00 04/22/18 12:00 04/22/18 12:00 04/22/18 12:00 Intake & Output 04/21/18 04/22/18 04/23/18 06:59 06:59 06:59 Intake Total 300 33 50 Output Total 950 Balance 300 -917 50 Weight 64.4 kg 63.4 kg General appearance: PRESENT: no acute distress, cooperative, disheveled Teeth exam: PRESENT: edentulous Respiratory exam: PRESENT: clear to auscultation nicole, symmetrical, unlabored. ABSENT: accessory muscle use, crackles, prolonged expiratory phase, rhonchi, tachypnea, wheezes Cardiovascular exam: PRESENT: RRR, +S1, +S2 Vascular exam: PRESENT: normal capillary refill GI/Abdominal exam: PRESENT: normal bowel sounds, soft. ABSENT: distended, guarding, rebound, tenderness Extremities exam: PRESENT: other - Bilateral lower extremity amputee. ABSENT: clubbing Musculoskeletal exam: ABSENT: tenderness Neurological exam: PRESENT: alert, awake, oriented to person, oriented to place, oriented to situation Psychiatric exam: PRESENT: depressed Skin exam: PRESENT: dry, pallor, warm, candidiasis in the groin and under her breasts and axillae has reduced in intensity Results Laboratory Results: 04/18/18 10:15 04/21/18 10:04 04/18/18 04/18/18 12:10 12:28 Creatine Kinase 30 CK-MB (CK-2) 1.62 Troponin I < 0.012 Impressions: Chest X-Ray 04/18/18 11:17 IMPRESSION: 1. Interval resolution of the infiltrates previously demonstrated in the left mid-left lower lower lung zones and the right lower lung zone. Assessment & Plan - Diagnosis (1) Altered mental status Qualifiers: Altered mental status type: somnolence Qualified Code(s): R40.0 - Somnolence Is this a current diagnosis for this admission?: Yes Plan: Resolved. She is back to baseline. (2) Hypoxemia Is this a current diagnosis for this admission?: Yes Plan: Stable on 1 L per nasal cannula. We will wean as tolerated. (3) CKD (chronic kidney disease) stage 4, GFR 15-29 ml/min Is this a current diagnosis for this admission?: Yes Plan: Creatinine is at baseline (4) Hypoglycemia Is this a current diagnosis for this admission?: Yes Plan: It seems like she was not getting the right amount of nutritional support at home. I am told it is estimated she was getting between 600 to 700 bella a day on the feeding regimen her son was giving her at home. We have got her on a continuous tube feeding regimen which she is tolerating. We got her up to 45 mL's an hour and she is doing fine. We will plan to send her home on 50 mL's an hour. As previously noted, we were going to send her home today but they cannot deliver her tube feeding pump until Wednesday. (5) Candidiasis of skin Is this a current diagnosis for this admission?: Yes Plan: We started her on some Diflucan, along with some nystatin cream and powder. She is responding well to it. - Time Time Spent with patient: 15-24 minutes
[2018-04-23] MEDS: INSULIN LISPRO 100 UNIT/ML 3 ML VIAL SUBCUT SCH ×4 (00:01→17:44)
[2018-04-23] MEDS: NYSTATIN CREAM 15 GM TP SCH ×3 (06:29→21:34)
[2018-04-23] MEDS: NYSTATIN TOPICAL POWDER 15 GM TP SCH ×3 (06:29→21:35)
[2018-04-23] MEDS: FLUCONAZOLE 100 MG in CONTAINER,EMPTY 1 EACH IV SCH (10:56)
[2018-04-23] MEDS: METOPROLOL TARTRATE 25 MG TABLET PEG SCH ×2 (10:56→21:33)
[2018-04-23] MEDS: AMLODIPINE BESYLATE 5 MG TABLET PEG SCH (10:57)
[2018-04-23] MEDS: CLONIDINE HCL 0.1 MG TABLET PO SCH ×2 (10:57→21:33)
[2018-04-23] MEDS: OXYCODONE HCL IR 5 MG TABLET PEG PRN ×3 (11:00→21:32)
--- NOTE | 2018-04-23 15:47 | PDOC PROGRESS REPORT ---
Subjective Progress Note for:: 04/23/18 Subjective:: No adverse events overnight. No new complaints. We were going to be able to send her home yesterday but the home health agency cannot deliver her tube feed pump until Wednesday. Her clinical condition has remained unchanged and she is at her baseline. Reason For Visit: HYPOXEMIA,HYPERKALEMIA,ALTERED MENTAL STATUS Physical Exam Vital Signs: Temp Pulse Resp BP Pulse Ox 98.6 F 79 17 159/68 H 95 04/23/18 12:00 04/23/18 12:00 04/23/18 12:00 04/23/18 12:00 04/23/18 12:00 Intake & Output 04/22/18 04/23/18 04/24/18 06:59 06:59 06:59 Intake Total 33 50 4012 Output Total 950 1200 Balance -917 -1150 4012 Weight 63.4 kg 67.8 kg General appearance: PRESENT: no acute distress, cooperative, disheveled Teeth exam: PRESENT: edentulous Respiratory exam: PRESENT: clear to auscultation nicole, symmetrical, unlabored. ABSENT: accessory muscle use, crackles, prolonged expiratory phase, rhonchi, tachypnea, wheezes Cardiovascular exam: PRESENT: RRR, +S1, +S2 Vascular exam: PRESENT: normal capillary refill GI/Abdominal exam: PRESENT: normal bowel sounds, soft. ABSENT: distended, guarding, rebound, tenderness Extremities exam: PRESENT: other - Bilateral lower extremity amputee. ABSENT: clubbing Musculoskeletal exam: ABSENT: tenderness Neurological exam: PRESENT: alert, awake, oriented to person, oriented to place, oriented to situation Psychiatric exam: PRESENT: depressed Skin exam: PRESENT: dry, pallor, warm, candidiasis in the groin and under her breasts and axillae has reduced in intensity Results Laboratory Results: 04/18/18 10:15 04/21/18 10:04 04/18/18 12:10 Blood Blood Culture - Final NO GROWTH IN 5 DAYS 04/18/18 04/18/18 12:10 12:28 Creatine Kinase 30 CK-MB (CK-2) 1.62 Troponin I < 0.012 Impressions: Chest X-Ray 04/18/18 11:17 IMPRESSION: 1. Interval resolution of the infiltrates previously demonstrated in the left mid-left lower lower lung zones and the right lower lung zone. Assessment & Plan - Diagnosis (1) Altered mental status Qualifiers: Altered mental status type: somnolence Qualified Code(s): R40.0 - Somnolence Is this a current diagnosis for this admission?: Yes Plan: Resolved. She is back to baseline. (2) Hypoxemia Is this a current diagnosis for this admission?: Yes Plan: Resolved (3) CKD (chronic kidney disease) stage 4, GFR 15-29 ml/min Is this a current diagnosis for this admission?: Yes Plan: Creatinine is at baseline (4) Hypoglycemia Is this a current diagnosis for this admission?: Yes Plan: It seems like she was not getting the right amount of nutritional support at home. I am told it is estimated she was getting between 600 to 700 bella a day on the feeding regimen her son was giving her at home. We have got her on a continuous tube feeding regimen which she is tolerating. We got her up to 45 mL's an hour and she is doing fine. We will plan to send her home on 50 mL's an hour. As previously noted, we were going to send her home yesterday but they cannot deliver her tube feeding pump until Wednesday. (5) Candidiasis of skin Is this a current diagnosis for this admission?: Yes Plan: We started her on some Diflucan, along with some nystatin cream and powder. She is responding well to it. - Time Time Spent with patient: 15-24 minutes
[2018-04-23] MEDS: ACETAMINOPHEN SOLN 325 MG/10.15 ML UDCUP PEG PRN (21:29)
[2018-04-24] MEDS: NYSTATIN TOPICAL POWDER 15 GM TP SCH ×3 (06:03→22:20)
[2018-04-24] MEDS: NYSTATIN CREAM 15 GM TP SCH ×3 (06:03→22:33)
[2018-04-24] MEDS: INSULIN LISPRO 100 UNIT/ML 3 ML VIAL SUBCUT SCH ×4 (08:05→18:15)
[2018-04-24] MEDS: FLUCONAZOLE 100 MG in CONTAINER,EMPTY 1 EACH IV SCH (09:35)
[2018-04-24] MEDS: AMLODIPINE BESYLATE 5 MG TABLET PEG SCH (09:36)
[2018-04-24] MEDS: METOPROLOL TARTRATE 25 MG TABLET PEG SCH ×2 (09:36→22:20)
[2018-04-24] MEDS: CLONIDINE HCL 0.1 MG TABLET PO SCH ×2 (09:40→22:19)
[2018-04-24] MEDS: OXYCODONE HCL IR 5 MG TABLET PEG PRN (10:06)
[2018-04-24] MEDS: ACETAMINOPHEN SOLN 325 MG/10.15 ML UDCUP PEG PRN ×2 (10:06→19:00)
[2018-04-24] MEDS: ONDANSETRON HCL INJ/PF 4 MG/2 ML SDV IV PRN ×2 (11:14→22:32)
--- NOTE | 2018-04-24 18:11 | PDOC PROGRESS REPORT ---
Subjective Progress Note for:: 04/24/18 Subjective:: No adverse events overnight. No new complaints. Vital signs been stable. Tolerating her tube feeds. Clinical condition is unchanged. Reason For Visit: HYPOXEMIA,HYPERKALEMIA,ALTERED MENTAL STATUS Physical Exam Vital Signs: Temp Pulse Resp BP Pulse Ox 98.2 F 68 15 146/55 H 94 04/24/18 16:00 04/24/18 16:00 04/24/18 16:00 04/24/18 16:00 04/24/18 16:00 Intake & Output 04/23/18 04/24/18 04/25/18 06:59 06:59 06:59 Intake Total 50 8578 50 Output Total 1200 1100 Balance -1150 7478 50 Weight 67.8 kg 69.9 kg General appearance: PRESENT: no acute distress, cooperative, disheveled Teeth exam: PRESENT: edentulous Respiratory exam: PRESENT: clear to auscultation nicole, symmetrical, unlabored. ABSENT: accessory muscle use, crackles, prolonged expiratory phase, rhonchi, tachypnea, wheezes Cardiovascular exam: PRESENT: RRR, +S1, +S2 Vascular exam: PRESENT: normal capillary refill GI/Abdominal exam: PRESENT: normal bowel sounds, soft. ABSENT: distended, guarding, rebound, tenderness Extremities exam: PRESENT: other - Bilateral lower extremity amputee. ABSENT: clubbing Musculoskeletal exam: ABSENT: tenderness Neurological exam: PRESENT: alert, awake, oriented to person, oriented to place, oriented to situation Psychiatric exam: PRESENT: depressed Skin exam: PRESENT: dry, pallor, warm, candidiasis in the groin and under her breasts and axillae has reduced in intensity Results Laboratory Results: 04/18/18 10:15 04/21/18 10:04 04/18/18 19:30 Blood Blood Culture - Final NO GROWTH IN 5 DAYS 04/18/18 04/18/18 12:10 12:28 Creatine Kinase 30 CK-MB (CK-2) 1.62 Troponin I < 0.012 Impressions: Chest X-Ray 04/18/18 11:17 IMPRESSION: 1. Interval resolution of the infiltrates previously demonstrated in the left mid-left lower lower lung zones and the right lower lung zone. Assessment & Plan - Diagnosis (1) Altered mental status Qualifiers: Altered mental status type: somnolence Qualified Code(s): R40.0 - Somno lence Is this a current diagnosis for this admission?: Yes Plan: Resolved. She is back to baseline. (2) Hypoxemia Is this a current diagnosis for this admission?: Yes Plan: Resolved (3) CKD (chronic kidney disease) stage 4, GFR 15-29 ml/min Is this a current diagnosis for this admission?: Yes Plan: Creatinine is at baseline (4) Hypoglycemia Is this a current diagnosis for this admission?: Yes Plan: It seems like she was not getting the right amount of nutritional support at home. I am told it is estimated she was getting between 600 to 700 bella a day on the feeding regimen her son was giving her at home. We have got her on a c ontinuous tube feeding regimen which she is tolerating. We got her up to 45 mL's an hour and she is doing fine. We will plan to send her home on 50 mL's an hour. As previously noted, we were going to send her home Wednesday but they cannot deliver her tube feeding pump until Wednesday. (5) Candidiasis of skin Is this a current diagnosis for this admission?: Yes Plan: We started her on some Diflucan, along with some nystatin cream and powder. She is responding well to it. - Time Time Spent with patient: 15-24 minutes
[2018-04-25] MEDS: INSULIN LISPRO 100 UNIT/ML 3 ML VIAL SUBCUT SCH ×4 (00:46→17:27)
[2018-04-25] MEDS: NYSTATIN TOPICAL POWDER 15 GM TP SCH ×3 (07:00→22:59)
[2018-04-25] MEDS: NYSTATIN CREAM 15 GM TP SCH ×3 (07:01→23:00)
[2018-04-25] MEDS: ONDANSETRON HCL INJ/PF 4 MG/2 ML SDV IV PRN (07:05)
[2018-04-25] MEDS: ACETAMINOPHEN SOLN 325 MG/10.15 ML UDCUP PEG PRN ×2 (07:51→18:08)
[2018-04-25] MEDS: OXYCODONE HCL IR 5 MG TABLET PEG PRN ×2 (07:52→18:08)
[2018-04-25] MEDS: CLONIDINE HCL 0.1 MG TABLET PO SCH ×2 (09:35→23:22)
[2018-04-25] MEDS: METOPROLOL TARTRATE 25 MG TABLET PEG SCH ×2 (09:35→23:22)
[2018-04-25] MEDS: AMLODIPINE BESYLATE 5 MG TABLET PEG SCH (09:35)
[2018-04-25] MEDS: FLUCONAZOLE 100 MG in CONTAINER,EMPTY 1 EACH IV SCH (09:36)
--- NOTE | 2018-04-25 16:15 | PDOC PROGRESS REPORT ---
Subjective Progress Note for:: 04/25/18 Subjective:: No acute events/adverse events overnight. Patient is afebrile. Blood pressure today is 141/50. T-max is 97.7. Comfortable in the bed asking me when she is ready to go home. Explained to her that we waiting for the feeding tube machine. Reason For Visit: HYPOXEMIA,HYPERKALEMIA,ALTERED MENTAL STATUS Physical Exam Vital Signs: Temp Pulse Resp BP Pulse Ox 98.3 F 71 17 157/72 H 92 04/25/18 12:00 04/25/18 14:00 04/25/18 12:00 04/25/18 12:00 04/25/18 12:00 Intake & Output 04/24/18 04/25/18 04/26/18 06:59 06:59 06:59 Intake Total 8578 50 50 Output Total 1100 750 Balance 7478 -700 50 Weight 69.9 kg 68.7 kg General appearance: PRESENT: no acute distress, cooperative, disheveled Head exam: PRESENT: atraumatic Eye exam: PRESENT: PERRLA Mouth exam: PRESENT: moist, tongue midline Neck exam: ABSENT: carotid bruit, JVD, lymphadenopathy, thyromegaly Respiratory exam: PRESENT: clear to auscultation nicole. ABSENT: rales, rhonchi, wheezes Cardiovascular exam: PRESENT: RRR. ABSENT: diastolic murmur, rubs, systolic murmur GI/Abdominal exam: PRESENT: normal bowel sounds, soft. ABSENT: distended, guarding, mass, organolmegaly, rebound, tenderness Extremities exam: PRESENT: other - Bilateral lower extremity amputation by Neurological exam: PRESENT: alert, awake, oriented to person, oriented to place, oriented to time, oriented to situation, CN II-XII grossly intact. ABSENT: motor sensory deficit Psychiatric exam: PRESENT: anxious, depressed Results Laboratory Results: 04/18/18 10:15 04/21/18 10:04 04/18/18 04/18/18 12:10 12:28 Creatine Kinase 30 CK-MB (CK-2) 1.62 Troponin I < 0.012 Impressions: Chest X-Ray 04/18/18 11:17 IMPRESSION: 1. Interval resolution of the infiltrates previously demonstrated in the left mid-left lower lower lung zones and the right lower lung zone. Assessment & Plan - Diagnosis (1) Altered mental status Qualifiers: Altered mental status type: somnolence Qualified Code(s): R40.0 - Somnolence Is this a current diagnosis for this admission?: Yes Plan: 04/25/2018 patient was admitted with altered mental status/acute encephalopathy most likely secondary to elevated PCO2, she has history of stroke it could be a TIA. She was also hyperglycemic hyperkalemic at the time of admission in association with acute on chronic kidney failure. All these factors may be contributing to her altered mental status/acute encephalopathy. (2) Hypoxemia Is this a current diagnosis for this admission?: Yes Plan: 04/25/2018-patient was admitted with hypoxia which was resolved pulse ox today is 94% on room air. Hypoxia most likely secondary to pneumonia. (3) CKD (chronic kidney disease) stage 4, GFR 15-29 ml/min Is this a current diagnosis for this admission?: Yes Plan: 04/25/2018 patient's admission creatinine was 2.54, and it is today 2.04. Acute on chronic renal failure is resolving. Patient has baseline CKD stage III. Kidney function is back to baseline. (4) Hypoglycemia Is this a current diagnosis for this admission?: Yes Plan: 04/25/2018 patient was admitted with hypoglycemia latest blood sugar today is 106. Patient is on tube feedings. Patient is going to go home with feeding rate of 50 mL/h. waiting for the feeding pump and supplies. - Time Time Spent with patient: 15-24 minutes Smoking Cessation Education: 3 to 10 minutes Medications reviewed and adjusted accordingly: Yes Anticipated discharge: Home
[2018-04-26] MEDS: INSULIN LISPRO 100 UNIT/ML 3 ML VIAL SUBCUT SCH ×3 (00:11→12:44)
[2018-04-26] MEDS: NYSTATIN TOPICAL POWDER 15 GM TP SCH ×2 (06:12→13:54)
[2018-04-26] MEDS: NYSTATIN CREAM 15 GM TP SCH ×2 (06:13→13:54)
[2018-04-26] MEDS: ACETAMINOPHEN SOLN 325 MG/10.15 ML UDCUP PEG PRN (07:50)
[2018-04-26] MEDS: CLONIDINE HCL 0.1 MG TABLET PO SCH (09:49)
[2018-04-26] MEDS: FLUCONAZOLE 100 MG in CONTAINER,EMPTY 1 EACH IV SCH ×2 (09:49→10:58)
[2018-04-26] MEDS: METOPROLOL TARTRATE 25 MG TABLET PEG SCH (09:50)
[2018-04-26] MEDS: AMLODIPINE BESYLATE 5 MG TABLET PEG SCH (09:50)
[2018-04-26] MEDS ORDERED: OXYCODONE HCL IR 5 MG TABLET PEG PRN (10:01)
[2018-04-26] MEDS: ONDANSETRON HCL INJ/PF 4 MG/2 ML SDV IV PRN (11:19)
[2018-04-26] MEDS ORDERED: PROMETHAZINE HCL 25 MG TABLET PEG PRN (12:12)
--- NOTE | 2018-04-26 14:41 | PDOC DISCHARGE SUMMARY ---
General - Admit/Disc Date/PCP Admission Date/Primary Care Provider: 04/19/18 15:41 SHELBY RAYA MD Discharge Date: 04/26/18 - Discharge Diagnosis (1) Altered mental status Is this a current diagnosis for this admission?: Yes Summary: 04/25/2018 patient was admitted with altered mental status/acute encephalopathy most likely secondary to elevated PCO2, she has history of stroke it could be a TIA. She was also hyperglycemic hyperkalemic at the time of admission in association with acute on chronic kidney failure. All these factors may be contributing to her altered mental status/acute encephalopathy. 04/26/2018 patient admitted with altered mental status/acute encephalopathy most likely due to hypercapnia, she had a history of stroke it could be transient ischemic attack. Initially she was found to be hyperglycemic, with high potassium levels. She is also came in with acute on chronic kidney failure. All these factors may be contributing to altered mental status which was resolved now. It is going home today. (2) Hypoxemia Is this a current diagnosis for this admission?: Yes Summary: 04/25/2018-patient was admitted with hypoxia which was resolved pulse ox today is 94% on room air. Hypoxia most likely secondary to pneumonia. 04/26/2018-patient was admitted with hypoxia pulse ox today is 93% on room air. Hypoxia may be secondary to infiltrates that was found in the chest x-ray. (3) CKD (chronic kidney disease) stage 4, GFR 15-29 ml/min Is this a current diagnosis for this admission?: Yes Summary: 04/25/2018 patient's admission creatinine was 2.54, and it is today 2.04. Acute on chronic renal failure is resolving. Patient has baseline CKD stage III. Kidney function is back to baseline. 04/26/2018-patient's admission creatinine is 2.54, latest creatinine is 2.04. Acute on chronic renal failure is resolved. (4) Hypoglycemia Is this a current diagnosis for this admission?: Yes Summary: 04/25/2018 patient was admitted with hyperglycemia latest blood sugar today is 106. Patient is on tube feedings. Patient is going to go home with feeding rate of 50 mL/h. waiting for the feeding pump and supplies. 04/26/2018-patient was admitted with hyperglycemia. Latest blood sugar is 81. Patient is going to go home on feedings at the rate of 50 mL/h. Patient has a feeding pump and supplies at home today she can go home today. - Additional Information Resuscitation Status: Do Not Resuscitate Discharge Diet: Tube Feeding (Comments) - Nepro at 50 ml/hr Discharge Activity: Other - turn q 2 hr Prescriptions: Fluconazole [Diflucan 100 Mg Tablet] 100 mg PO DAILY #7 tablet Nystatin [Mycostatin Topical Powder 15 gm] 1 applic TP Q8 #1 bottle Nystatin/Triamcin [Mycolog-II Cream 15 gm] 1 applic TP Q8 #1 tube Home Medications: Amlodipine Besylate [Norvasc 5 mg Tablet] 5 mg PO DAILY 03/28/18 Insulin Aspart [Novolog Flexpen] 0 unit SUBCUT .SLD SCALE 03/28/18 Buprenorphine [Butrans] 1 patch TD Q7D 04/18/18 Clonidine HCl [Catapres 0.1 mg Tablet] 0.1 mg PO Q12 04/18/18 Metoprolol Tartrate [Lopressor 25 mg Tablet] 12.5 mg PO Q12 04/18/18 Naloxone HCl [Narcan] 1 spray NASL DAILY PRN 04/18/18 Oxycodone HCl [Oxy-Ir 5 mg Tablet] 5 mg PO Q4HP PRN 04/18/18 Fluconazole [Diflucan 100 Mg Tablet] 100 mg PO DAILY #7 tablet 04/22/18 Nystatin [Mycostatin Topical Powder 15 gm] 1 applic TP Q8 #1 bottle 04/22/18 Nystatin/Triamcin [Mycolog-II Cream 15 gm] 1 applic TP Q8 #1 tube 04/22/18 History of Present Illness History of Present Illness: GEORGE LAUGHLIN is a 67 year old female 67 year old female this is the third admission for this pleasant 67-year-old f emale since March 08. She has had an admission for her stroke in early March with subsequent admission for pneumonia April 02. She now presents for altered mental status. Evidently they patient was feeling short of breath. She has a pulse oximeter at home. The son tested her pulse oximetry and it was less than 50%. The patient was asymptomatic. Hypoxemia was confirmed in the emergency department. The patient was 84% on room air and required 4 L of nasal cannula oxygen initially. This successfully brought her pulse ox to 100%. She was tapered down to 1 L while in the emergency room in addition the patient was found to have hyperkalemia, respiratory acidosis, acute on chronic kidney injury and possible cystitis. Physical Exam Vital Signs: Temp Pulse Resp BP Pulse Ox 97.8 F 74 18 160/61 H 94 04/26/18 11:44 04/26/18 11:44 04/26/18 11:44 04/26/18 13:46 04/26/18 11:44 Intake & Output 04/25/18 04/26/18 04/27/18 06:59 06:59 06:59 Intake Total 50 50 Output Total 750 450 Balance -700 50 -450 Weight 68.7 kg 69.4 kg General appearance: PRESENT: no acute distress Head exam: PRESENT: atraumatic Eye exam: PRESENT: PERRLA Mouth exam: PRESENT: dry mucosa Neck exam: ABSENT: carotid bruit, JVD, lymphadenopathy, thyromegaly Respiratory exam: PRESENT: clear to auscultation nicole. ABSENT: rales, rhonchi, wheezes Cardiovascular exam: PRESENT: RRR. ABSENT: diastolic murmur, rubs, systolic murmur GI/Abdominal exam: PRESENT: other - Feeding tube in place bowel sounds are pr esent. Neurological exam: PRESENT: alert, awake, oriented to person, oriented to place, oriented to time, oriented to situation, CN II-XII grossly intact. ABSENT: motor sensory deficit Psychiatric exam: PRESENT: appropriate affect, normal mood. ABSENT: homicidal ideation, suicidal ideation Results Laboratory Results: 04/18/18 10:15 04/21/18 10:04 04/18/18 04/18/18 12:10 12:28 Creatine Kinase 30 CK-MB (CK-2) 1.62 Troponin I < 0.012 Impressions: Chest X-Ray 04/18/18 11:17 IMPRESSION: 1. Interval resolution of the infiltrates previously demonstrated in the left mid-left lower lower lung zones and the right lower lung zone. Qualifiers - * PATIENT BEING DISCHARGED WITH ANY OF THE FOLLOWING DIAGNOSIS: No VTE patient discharged on overlapping Therapy?: No
[2018-04-26 17:10] VITALS: BP 160/71
== END 2018-04-26 17:11 | disposition home health service (06) | DRG 640 ==
LOC: ER 10:49 → EH 15:49 → INTOOBSV 15:49 → OBSVTOIN 15:49 → 5 20:25 → OBSVTOIN 04-19 15:41
PROVIDERS: ADMIT Internal Medicine; ATTEND Internal Medicine
PROC: 3E0F73Z Introduction of Anti-inflammatory into Respiratory Tract, Via Natural or Artificial Opening (ICD-10-PCS; principal; 2018-04-19)
DX: E87.5 Hyperkalemia (principal); J18.9 Pneumonia, unspecified organism; N17.9 Acute kidney failure, unspecified; N18.4 Chronic kidney disease, stage 4 (severe); I13.0 Hypertensive heart and chronic kidney disease with heart failure and stage 1 through stage 4 chronic kidney disease, or unspecified chronic kidney disease; J44.0 Chronic obstructive pulmonary disease with (acute) lower respiratory infection; Z66 Do not resuscitate; E11.22 Type 2 diabetes mellitus with diabetic chronic kidney disease; B37.2 Candidiasis of skin and nail; E11.649 Type 2 diabetes mellitus with hypoglycemia without coma; E11.51 Type 2 diabetes mellitus with diabetic peripheral angiopathy without gangrene; R09.02 Hypoxemia; F32.9 Major depressive disorder, single episode, unspecified; I69.991 Dysphagia following unspecified cerebrovascular disease; Z79.4 Long term (current) use of insulin; Z79.899 Other long term (current) drug therapy; Z90.710 Acquired absence of both cervix and uterus; Z89.512 Acquired absence of left leg below knee; Z89.511 Acquired absence of right leg below knee; Z87.891 Personal history of nicotine dependence; Z88.0 Allergy status to penicillin; Z88.6 Allergy status to analgesic agent; Z91.040 Latex allergy status; Z83.6 Family history of other diseases of the respiratory system; Z82.49 Family history of ischemic heart disease and other diseases of the circulatory system
CPT/HCPCS: 36415; 71045; 80048; 80051; 80053; 80076; 81001; 82550; 82553; 82803; 82947; 82962; 83605; 84484; 85025; 87040; 87086; 93005; 93010; 94640; 96361; 96374; 96375; 99291; G0378; J0610; J1450; J1815; J2405; J3490; J7030; J7620

== ENCOUNTER 2018-05-18 19:19 | Inpatient (IN) | payer MEDICARE, OTHER ==
[2018-05-18 20:47] LABS: ABSOLUTE BASOPHILS # (AUTO) 0.1 10^3/uL (0.0-0.2); ABSOLUTE EOSINOPHILS # (AUTO) 0.2 10^3/uL (0.0-0.6); ABSOLUTE LYMPHOCYTES (AUTO) 1.3 10^3/uL (0.5-4.7); ABSOLUTE MONOCYTES (AUTO) 0.9 10^3/uL (0.1-1.4); ABSOLUTE NEUT (AUTO) 6.4 10^3/uL (1.7-8.2); BASOPHILS % (AUTO) 0.6 % (0-2); HEMATOCRIT 31.1 % (36.0-47.0); HEMOGLOBIN 10.4 g/dL (12.0-15.5); LYMPHOCYTES % (AUTO) 14.5 % (13-45); MEAN CORPUSCULAR HEMOGLOBIN 29.1 pg (27.0-33.4); MEAN CORPUSCULAR HGB CONC 33.6 g/dL (32.0-36.0); MEAN CORPUSCULAR VOLUME 87 fl (80-97); MONOCYTES % (AUTO) 10.1 % (3-13); PLATELET COUNT 287 10^3/uL (150-450); RED BLOOD COUNT 3.59 10^6/uL (3.72-5.28); SEGMENTED NEUTROPHILS % (AUTO) 72.8 % (42-78); TOTAL CELLS COUNTED % (AUTO) 100 %; WHITE BLOOD COUNT 8.8 10^3/uL (4.0-10.5)
--- NOTE | 2018-05-18 21:06 | ER Document Report ---
ED Medical Screen (RME) - General Chief Complaint: Decreased LOC Stated Complaint: BREATHING PROBLEMS Time Seen by Provider: 05/18/18 21:05 Primary Care Provider: SHELBY RAYA MD [Primary Care Provider] - Follow up as needed Notes: 68-year-old female brought in by EMS for evaluation of shortness of breath and low oxygen saturations at home. Patient is a bilateral lower extremity amputee, stroke, PEG tube, feeding tube. Had a little cough she says. Patient is alert and responsive and talking at this time. Reportedly her oxygen saturations were 70%. Currently while talking her saturations are 95%. Patient denies any complaints at this time. I have greeted and performed a rapid initial assessment of this patient. A comprehensive ED assessment and evaluation of the patient, analysis of test results and completion of the medical decision making process will be conducted by additional ED providers. TRAVEL OUTSIDE OF THE [place] IN LAST 30 DAYS: No - Related Data Allergies/Adverse Reactions: heparin Allergy (Intermediate, Verified 05/18/18 19:46) Hives latex [Latex] Allergy (Mild, Verified 05/18/18 19:46) RASH Penicillins Allergy (Mild, Verified 05/18/18 19:46) RASH, BREATHING DIFFICULTY coconut Allergy (Verified 05/18/18 19:46) codeine Allergy (Verified 05/18/18 19:46) seafood Allergy (Uncoded 05/18/18 19:46) Past Medical History - Past Medical History Cardiac Medical History: Reports: Hx Hypertension, Hx Peripheral Vascular Disease Denies: Hx Atrial Fibrillation, Hx Congestive Heart Failure, Hx Heart Attack, Hx Pulmonary Embolism Pulmonary Medical History: Reports: Hx COPD Denies: Hx Asthma Neurological Medical History: Reports: Hx Cerebrovascular Accident - 2 years ago and then couple of weeks ago. Chronic right sided weakness.. Denies: Hx Seizures Endocrine Medical History: Reports: Hx Diabetes Mellitus Type 2 Renal/ Medical History: Reports: Hx Renal Insufficiency. Denies: Hx Peritoneal Dialysis GI Medical History: Denies: Hx Hepatitis, Hx Hiatal Hernia, Hx Ulcer Psychiatric Medical History: Reports: Hx Depression Infectious Medical History: Denies: Hx Hepatitis Past Surgical History: Reports: Hx Abdominal Surgery - Gastrostomy tube, Hx Hysterectomy, Hx Orthopedic Surgery - Bilateral BKA, Hx Vascular Surgery - Failed angioplasty and stenting into the lower extremities.. Denies: Hx Mastectomy, Hx Open Heart Surgery, Hx Pacemaker - Immunizations History of Influenza Vaccine for 12/2016 - 05/2017 Season: No Physical Exam - Vital signs Vitals: Pulse Ox 89 L 05/18/18 19:30 Course - Vital Signs Vital signs: Temp Pulse Resp BP Pulse Ox 98.1 F 10 L 148/61 H 95 05/18/18 20:01 05/18/18 20:01 05/18/18 20:01 05/18/18 20:01 - Laboratory Result Diagrams: 05/18/18 20:14 05/18/18 20:14 Laboratory results interpreted by me: 05/18/18 20:14 RBC 3.59 L Hgb 10.4 L Hct 31.1 L Doctor's Discharge - Discharge Referrals: SHELBY RAYA MD [Primary Care Provider] - Follow up as needed
[2018-05-18 21:14] LABS: ALANINE AMINOTRANSFERASE 293 U/L (9-52); ALBUMIN 4.1 g/dL (3.5-5.0); ALKALINE PHOSPHATASE 166 U/L (38-126); ANION GAP 14 (5-19); ASPARTATE AMINO TRANSFERASE 229 U/L (14-36); BILIRUBIN,DIRECT 0.5 mg/dL (0.0-0.4); BILIRUBIN,TOTAL 0.5 mg/dL (0.2-1.3); CALCIUM 10.5 mg/dL (8.4-10.2); CARBON DIOXIDE 25 mmol/L (22-30); CHLORIDE 93 mmol/L (98-107); GLUCOSE 100 mg/dL (75-110); SODIUM 131.8 mmol/L (137-145)
[2018-05-18 21:39] LABS: BLOOD UREA NITROGEN 130 mg/dL (7-20)
[2018-05-18 21:41] LABS: POTASSIUM 6.2 mmol/L (3.6-5.0)
[2018-05-18 22:11] LABS: INTERNATIONAL RATION (INR) 0.94
[2018-05-18] MEDS ORDERED: INSULIN REG, HUMAN 100 UNIT/ML 3 ML VIAL (PYX) IV ONE (22:35)
[2018-05-18] MEDS ORDERED: DEXTROSE 50%-WATER 25 GM/50 ML DISP.SYRIN IV ONE (22:35)
[2018-05-18] MEDS ORDERED: CALCIUM GLUCONATE 1000 MG/10 ML INJ IV ONE (22:35)
[2018-05-18] MEDS ORDERED: SODIUM POLYSTYRENE SULFONATE 15 GM/60 ML GT ONE (22:35)
[2018-05-18 22:51] LABS: CREATINE KINASE MB 0.93 ng/mL (<4.55)
[2018-05-18 22:52] LABS: TROPONIN I < 0.012 ng/mL
[2018-05-19 02:35] LABS: ARTERIAL BLOOD BASE EXCESS -1.4 mmol/L; ARTERIAL BLOOD H2CO3 1.35 mmol/L (1.05-1.35); ARTERIAL BLOOD HCO3 24.2 mmol/L (20-24); ARTERIAL BLOOD O2 SATURATION 93.4 % (94-98); ARTERIAL BLOOD PH 7.35 (7.35-7.45); ARTERIAL BLOOD PO2 70.8 mmHg (80-100); ARTERIAL BLOOD TOTAL CO2 25.6 mmol/L (21-25)
[2018-05-19 02:36] LABS: ARTERIAL BLOOD FIO2 2L
[2018-05-19 02:42] LABS: APPEARANCE,URINE CLOUDY; BILIRUBIN,URINE NEGATIVE (NEGATIVE); COLOR,URINE YELLOW; GLUCOSE, URINE 50 mg/dL (NEGATIVE); KETONES,URINE NEGATIVE (NEGATIVE); LEUKOCYTE ESTERASE,URINE LARGE (NEGATIVE); NITRITE,URINE POSITIVE (NEGATIVE); PROTEIN,URINE 100 mg/dL (NEGATIVE); URINE SPECIFIC GRAVITY 1.011; UROBILINOGEN,URINE NEGATIVE mg/dL (<2.0)
--- NOTE | 2018-05-19 02:55 | ER Document Report ---
ED General - General Chief Complaint: Decreased LOC Stated Complaint: BREATHING PROBLEMS Time Seen by Provider: 05/18/18 21:05 Primary Care Provider: SHELBY RAYA MD [Primary Care Provider] - Follow up as needed TRAVEL OUTSIDE OF THE [place] IN LAST 30 DAYS: No - HPI Notes: Patient brought to the emergency room for evaluation. Per the son he found her to have a decreased level of consciousness. She was seeming short of breath. He found her oxygen saturation to be in the 70s. She is not on oxygen at home. She has a very comp gated medical history including recent CVA, is a bilateral amputee, PEG tube feedings. Patient herself can offer me little in the way of history. She denies any pain at this time. - Related Data Allergies/Adverse Reactions: heparin Allergy (Intermediate, Verified 05/18/18 19:46) Hives latex [Latex] Allergy (Mild, Verified 05/18/18 19:46) RASH Penicillins Allergy (Mild, Verified 05/18/18 19:46) RASH, BREATHING DIFFICULTY coconut Allergy (Verified 05/18/18 19:46) codeine Allergy (Verified 05/18/18 19:46) seafood Allergy (Uncoded 05/18/18 19:46) Past Medical History - General Information source: Patient, [facility] Records - Social History Smoking Status: Former Smoker Drug Abuse: None Lives with: Family Family History: Reviewed & Not Pertinent, CAD, COPD Patient has suicidal ideation: No Patient has homicidal ideation: No - Past Medical History Cardiac Medical History: Reports: Hx Hypertension, Hx Peripheral Vascular Di sease Denies: Hx Atrial Fibrillation, Hx Congestive Heart Failure, Hx Heart Attack, Hx Pulmonary Embolism Pulmonary Medical History: Reports: Hx COPD Denies: Hx Asthma Neurological Medical History: Reports: Hx Cerebrovascular Accident - 2 years ago and then couple of weeks ago. Chronic right sided weakness.. Denies: Hx Seizures Endocrine Medical History: Reports: Hx Diabetes Mellitus Type 2 Renal/ Medical History: Reports: Hx Renal Insufficiency. Denies: Hx Peritoneal Dialysis GI Medical History: Denies: Hx Hepatitis, Hx Hiatal Hernia, Hx Ulcer Psychiatric Medical History: Reports: Hx Depression Infectious Medical History: Denies: Hx Hepatitis Past Surgical History: Reports: Hx Abdominal Surgery - Gastrostomy tube, Hx Hysterectomy, Hx Orthopedic Surgery - Bilateral BKA, Hx Vascular Surgery - Failed angioplasty and stenting into the lower extremities.. Denies: Hx Mastectomy, Hx Open Heart Surgery, Hx Pacemaker Review of Systems - Review of Systems Constitutional: Weakness EENT: No symptoms reported Cardiovascular: No symptoms reported Respiratory: See HPI Gastrointestinal: No symptoms reported Genitourinary: No symptoms reported Musculoskeletal: No symptoms reported Skin: No symptoms reported Neurological/Psychological: No symptoms reported Physical Exam - Vital signs Vitals: Pulse Ox 89 L 05/18/18 19:30 Notes: Total signs reviewed and as charted - Notes Notes: Vital signs reviewed, as charted. Head is normocephalic and appears atraumatic. Pupils are equal, round, reactive to light. She does have a right-sided facial droop. Heart is regular rate and rhythm, lungs reveal diminished breath sounds, particularly expiratory. Abdomen is soft. G-tube in the left upper abdomen with some dried blood surrounding, but no erythema. Patient is a right [id number] amputation, left below the knee amputation. No skin breakdown noted. Patient has a sickly of right-sided weakness from a former stroke, unchanged per patient. She is awake and alert. Course - Re-evaluation Re-evalutation: 05/19/18 02:54 Presents emergency department for evaluation. There was report of hypoxia. The patient is not on oxygen at home. She did have an ABG here performed on 2 L and remained hypoxemic. Laboratory investigations show an acute alteration in kidney function, with a creatinine of 3.24. Her last creatinine was 2.04. Potassium is elevated at 6.2 as well. She was given calcium, insulin, dextrose, Kayexalate. Her oxygen level was increased to 3 L. Patient's urine was a nitrates positive specimen with large leukocyte esterase. This was in fact however a Carrillo catheter specimen. I suspect this is colonization. We will contact Dr. Keith for potential admission. 05/19/18 04:05 Notified by nursing that Dr. Keith has placed orders for admission 05/19/18 04:06 - Vital Signs Vital signs: Temp Pulse Resp BP Pulse Ox 98.1 F 12 150/61 H 96 05/18/18 20:01 05/19/18 02:21 05/19/18 02:21 05/19/18 02:21 - Laboratory Result Diagrams: 05/18/18 20:14 05/18/18 20:14 Laboratory results interpreted by me: 05/18/18 05/18/18 05/18/18 20:14 20:14 20:17 RBC 3.59 L Hgb 10.4 L Hct 31.1 L APTT 50.0 H ABG pO2 ABG HCO3 ABG Total CO2 ABG O2 Saturation Sodium 131.8 L Potassium 6.2 H* Chloride 93 L BUN 130 H Creatinine 3.24 H Est GFR ( Amer) 17 L Est GFR (Non-Af Amer) 14 L Calcium 10.5 H Magnesium Direct Bilirubin 0.5 H AST 229 H ALT 293 H Alkaline Phosphatase 166 H Creatine Kinase NT-Pro-B Natriuret Pep Urine Protein Urine Glucose (UA) Urine Blood Urine Nitrite Ur Leukocyte Esterase 05/18/18 05/18/18 05/18/18 21:08 21:08 21:08 RBC Hgb Hct APTT ABG pO2 ABG HCO3 ABG Total CO2 ABG O2 Saturation Sodium Potassium Chloride BUN Creatinine Est GFR ( Amer) Est GFR (Non-Af Amer) Calcium Magnesium 3.9 H Direct Bilirubin AST ALT Alkaline Phosphatase Creatine Kinase 25 L NT-Pro-B Natriuret Pep 4430 H Urine Protein Urine Glucose (UA) Urine Blood Urine Nitrite Ur Leukocyte Esterase 05/19/18 05/19/18 02:20 02:20 RBC Hgb Hct APTT ABG pO2 70.8 L ABG HCO3 24.2 H ABG Total CO2 25.6 H ABG O2 Saturation 93.4 L Sodium Potassium Chloride BUN Creatinine Est GFR ( Amer) Est GFR (Non-Af Amer) Calcium Magnesium Direct Bilirubin AST ALT Alkaline Phosphatase Creatine Kinase NT-Pro-B Natriuret Pep Urine Protein 100 H Urine Glucose (UA) 50 H Urine Blood SMALL H Urine Nitrite POSITIVE H Ur Leukocyte Esterase LARGE H - Diagnostic Test Radiology results interpreted by me: 05/19/18 02:53 No acute cardiopulmonary disease, interpreted by myself - EKG Interpretation by Me Additional EKG results interpreted by me: 05/19/18 02:53 Sinus mechanism with a rate of 77 bpm. Left axis deviation. Mildly peaked T waves. No acute changes concerning for ischemia or infarction. Discharge - Discharge Clinical Impression: Hypoxemia, Acute renal failure, Hyperkalemia Disposition: ADMITTED INPATIENT Admitting Provider: Hospitalist - [facility] Admitted: Telemetry Referrals: SHELBY RAYA MD [Primary Care Provider] - Follow up as needed
[2018-05-19] MEDS ORDERED: ACETAMINOPHEN 325 MG TABLET PEG PRN (03:52)
[2018-05-19] MEDS ORDERED: MAG HYDROX/AL HYDROX/SIMETH SUSP 30 ML UDCUP PEG PRN (03:52)
[2018-05-19] MEDS ORDERED: DEXTROSE 40% GEL 15 GM TUBE PO PRN ×2 (03:52)
[2018-05-19] MEDS ORDERED: IPRATROPIUM/ALBUTEROL 0.5-2.5 MG/3 ML AMPUL NEB PRN (03:52)
[2018-05-19] MEDS ORDERED: GLUCAGON,HUMAN RECOMB 1 MG INJ IM PRN (03:52)
[2018-05-19] MEDS ORDERED: DEXTROSE 50%-WATER 25 GM/50 ML DISP.SYRIN IV PRN ×2 (03:52)
[2018-05-19] MEDS ORDERED: (PENDING PHARMACY ID) (Buprenorphine [Butrans] 1 PATCH) TD SCH (04:00)
[2018-05-19] MEDS: NORMAL SALINE 1000 ML 1,000 ML IV PRN ×2 (04:23→08:54)
[2018-05-19 06:15] LABS: ANION GAP 10 (5-19); BLOOD UREA NITROGEN 119 mg/dL (7-20); CARBON DIOXIDE 23 mmol/L (22-30); CHLORIDE 99 mmol/L (98-107); GLUCOSE 80 mg/dL (75-110); LIPASE 62.2 U/L (23-300); PHOSPHORUS 6.3 mg/dL (2.5-4.5); POTASSIUM 5.7 mmol/L (3.6-5.0); SODIUM 131.9 mmol/L (137-145)
--- NOTE | 2018-05-19 06:16 | RADIOLOGY REPORT (SQ) ---
CLINICAL HISTORY: low POX/ decreased LOC COMPARISON: April 18, 2018 TECHNIQUE: XR CHEST 1 VIEW 05/18/2018 7:47 PM CDT FINDINGS: The heart is enlarged. Lungs are clear without consolidation, atelectasis, mass or edema. There is no pleural effusion. There is no pneumothorax. There are no acute osseous findings. IMPRESSION: Clear lungs.
[2018-05-19] MEDS: FONDAPARINUX SODIUM INJ 2.5 MG/0.5 ML DISP.SYRIN SUBCUT SCH (08:00)
--- NOTE | 2018-05-19 08:04 | EKG REPORT ---
SEVERITY:- OTHERWISE NORMAL ECG - SINUS RHYTHM LEFT AXIS DEVIATION LOW VOLTAGE IN FRONTAL LEADS : Confirmed by: Baldomero Hollis MD 19-May-2018 08:03:51
[2018-05-19] MEDS ORDERED: ASPIRIN 81 MG TABLET, ENT COATED PO SCH (10:00)
[2018-05-19] MEDS: CLONIDINE HCL 0.1 MG TABLET PEG SCH ×2 (12:08→22:00)
[2018-05-19] MEDS: METOPROLOL TARTRATE 25 MG TABLET PEG SCH ×2 (12:08→21:59)
[2018-05-19] MEDS: CLOPIDOGREL BISULFATE 75 MG TABLET PEG SCH (12:09)
[2018-05-19] MEDS: GABAPENTIN 100 MG CAPSULE PEG SCH (12:10)
[2018-05-19] MEDS: DOCUSATE SODIUM 100 MG/10 ML UDC PEG SCH ×2 (12:10→18:54)
[2018-05-19] MEDS: MAGNESIUM HYDROXIDE SUSP 30 ML UDCUP PEG SCH (12:10)
[2018-05-19] MEDS: NYSTATIN TOPICAL POWDER 15 GM TP SCH ×3 (12:11→22:01)
[2018-05-19] MEDS: INSULIN LISPRO 100 UNIT/ML 3 ML VIAL SUBCUT SCH ×3 (12:12→21:08)
[2018-05-19] MEDS: NYSTATIN/TRIAMCIN CREAM 15 GM TP SCH ×3 (14:00→22:02)
[2018-05-19] MEDS ORDERED: NORMAL SALINE 1000 ML 1,000 ML IV PRN (17:32)
[2018-05-19] MEDS ORDERED: SODIUM POLYSTYRENE SULFONATE 15 GM/60 ML GT ONE (17:47)
[2018-05-19] MEDS ORDERED: ASPIRIN 81 MG TABLET, CHEWABLE ONE (17:51)
--- NOTE | 2018-05-19 17:52 | PDOC PROGRESS REPORT ---
Subjective Progress Note for:: 05/19/18 Subjective:: The patient is a 68-year-old female with a past medical history of hypertension, PVD, COPD, DM 2,CKD 4, bilateral BKA, CVA, and PEG tube who is on her fourth admission since March of this year for altered mental status, acute respiratory failure with hypoxia, acute on chronic kidney failure, and hyperkalemia. The patient was seen on afternoon rounds. She was found resting in bed comfortably on supplemental oxygen via nasal cannula. She was alert and oriented to self, place, situation. She reports that she is feeling fine today, though somewhat fatigued. She denies headaches, dizziness, chest pain, palpitation, dyspnea, orthopnea, abdominal pain, nausea vomiting and diarrhea. She cannot recall why she was brought to the emergency department. She becomes tearful and agitated when attempting to discuss her living situation and frequent readmissions. She tells me that she only wants to discuss this when her son is present and is adamant that she return to home at time of discharge. She has no other questions or concerns at this time. No concerns per nursing. Reason For Visit: ASPIRATION PNA, UREMIA, ARF, HYPERKALEMIA Physical Exam Vital Signs: Temp Pulse Resp BP Pulse Ox 98.6 F 66 16 145/52 H 96 05/19/18 15:35 05/19/18 15:35 05/19/18 15:35 05/19/18 15:35 05/19/18 15:35 Intake & Output 05/18/18 05/19/18 05/20/18 06:59 06:59 06:59 Intake Total 1060 Output Total 520 Balance 1060 -520 Weight 63 kg 63 kg General appearance: PRESENT: no acute distress, disheveled, obese, well- developed Head exam: PRESENT: atraumatic, normocephalic Eye exam: PRESENT: conjunctiva pink, EOMI, PERRLA. ABSENT: scleral icterus Mouth exam: PRESENT: moist, tongue midline Teeth exam: PRESENT: poor dentation Respiratory exam: PRESENT: clear to auscultation nicole, decreased breath sounds - Bibasilar; secondary to body habitus and poor respiratory effort, symmetrical, unlabored, other - Supplemental oxygen by nasal cannula. ABSENT: rales, rhonchi, wheezes Cardiovascular exam: PRESENT: RRR. ABSENT: diastolic murmur, rubs, systolic murmur Vascular exam: PRESENT: normal capillary refill GI/Abdominal exam: PRESENT: normal bowel sounds, soft, other - PEG tube. ABSENT: distended, guarding, mass, organolmegaly, rebound, tenderness Rectal exam: PRESENT: deferred Extremities exam: PRESENT: full ROM - BUE. ABSENT: calf tenderness, clubbing, pedal edema Neurological exam: PRESENT: alert, awake, oriented to person, oriented to place, oriented to situation, CN II-XII grossly intact. ABSENT: motor sensory deficit Psychiatric exam: PRESENT: anxious, appropriate affect, normal mood, other - Tearful. ABSENT: homicidal ideation, suicidal ideation Skin exam: PRESENT: dry, warm. ABSENT: cyanosis, intact - Stage III decubitus ulcer, rash Results Laboratory Results: 05/18/18 20:14 05/19/18 05:30 05/18/18 05/18/18 05/18/18 20:14 20:14 21:08 WBC 8.8 RBC 3.59 L Hgb 10.4 L Hct 31.1 L MCV 87 MCH 29.1 MCHC 33.6 RDW 14.0 Plt Count 287 Seg Neutrophils % 72.8 Lymphocytes % 14.5 Monocytes % 10.1 Eosinophils % 2.0 Basophils % 0.6 Absolute Neutrophils 6.4 Absolute Lymphocytes 1.3 Absolute Monocytes 0.9 Absolute Eosinophils 0.2 Absolute Basophils 0.1 Carbonic Acid HCO3/H2CO3 Ratio ABG pH ABG pCO2 ABG pO2 ABG HCO3 ABG O2 Saturation ABG Base Excess FiO2 Sodium 131.8 L Potassium 6.2 H* Chloride 93 L Carbon Dioxide 25 Anion Gap 14 BUN 130 H Creatinine 3.24 H Est GFR ( Amer) 17 L Est GFR (Non-Af Amer) 14 L Glucose 100 Lactic Acid 0.8 Calcium 10.5 H Phosphorus Magnesium Total Bilirubin 0.5 AST 229 H ALT 293 H Alkaline Phosphatase 166 H Total Protein 8.0 Albumin 4.1 Lipase Urine Color Urine Appearance Urine pH Ur Specific Seale Urine Protein Urine Glucose (UA) Urine Ketones Urine Blood Urine Nitrite Ur Leukocyte Esterase Urine WBC (Auto) Urine RBC (Auto) 05/18/18 05/19/18 05/19/18 21:08 02:20 02:20 WBC RBC Hgb Hct MCV MCH MCHC RDW Plt Count Seg Neutrophils % Lymphocytes % Monocytes % Eosinophils % Basophils % Absolute Neutrophils Absolute Lymphocytes Absolute Monocytes Absolute Eosinophils Absolute Basophils Carbonic Acid 1.35 HCO3/H2CO3 Ratio 17:1 ABG pH 7.35 ABG pCO2 45.0 ABG pO2 70.8 L ABG HCO3 24.2 H ABG O2 Saturation 93.4 L ABG Base Excess -1.4 FiO2 2L Sodium Potassium Chloride Carbon Dioxide Anion Gap BUN Creatinine Est GFR ( Amer) Est GFR (Non-Af Amer) Glucose Lactic Acid Calcium Phosphorus Magnesium 3.9 H Total Bilirubin AST ALT Alkaline Phosphatase Total Protein Albumin Lipase Urine Color YELLOW Urine Appearance CLOUDY Urine pH 5.0 Ur Specific Seale 1.011 Urine Protein 100 H Urine Glucose (UA) 50 H Urine Ketones NEGATIVE Urine Blood SMALL H Urine Nitrite POSITIVE H Ur Leukocyte Esterase LARGE H Urine WBC (Auto) 56 Urine RBC (Auto) 4 05/19/18 05/19/18 04:34 05:30 WBC RBC Hgb Hct MCV MCH MCHC RDW Plt Count Seg Neutrophils % Lymphocytes % Monocytes % Eosinophils % Basophils % Absolute Neutrophils Absolute Lymphocytes Absolute Monocytes Absolute Eosinophils Absolute Basophils Carbonic Acid HCO3/H2CO3 Ratio ABG pH ABG pCO2 ABG pO2 ABG HCO3 ABG O2 Saturation ABG Base Excess FiO2 Sodium Cancelled 131.9 L Potassium Cancelled 5.7 H Chloride Cancelled 99 Carbon Dioxide Cancelled 23 Anion Gap Cancelled 10 BUN Cancelled 119 H Creatinine Cancelled 3.19 H Est GFR ( Amer) Cancelled 17 L Est GFR (Non-Af Amer) Cancelled 14 L Glucose Cancelled 80 Lactic Acid Calcium Cancelled 10.0 Phosphorus Cancelled 6.3 H Magnesium Total Bilirubin AST ALT Alkaline Phosphatase Total Protein Albumin Lipase Cancelled 62.2 Urine Color Urine Appearance Urine pH Ur Specific Seale Urine Protein Urine Glucose (UA) Urine Ketones Urine Blood Urine Nitrite Ur Leukocyte Esterase Urine WBC (Auto) Urine RBC (Auto) 05/18/18 05/18/18 05/18/18 21:08 21:08 21:08 Creatine Kinase 25 L CK-MB (CK-2) 0.93 Troponin I < 0.012 NT-Pro-B Natriuret Pep 4430 H Impressions: Chest X-Ray 05/18/18 19:47 IMPRESSION: Clear lungs. Assessment & Plan - Diagnosis (1) Acute on chronic renal failure Qualifiers: Chronic kidney disease stage: stage 4 (severe) Is this a current diagnosis for this admission?: Yes Plan: The patient is admitted with acute on chronic renal failure. Baseline creatinine of 2.2. On admission she was found to have an elevated creatinine to 3.24 which is improved slightly with IV fluids. Currently 3.19. BUN is also elevated to 130 from baseline of 60. She is found to have hyperkalemia which is trending down with IV fluids. Likely secondary to dehydration. Carrillo catheter has been placed for strict I&O's. She received 2 L IV fluid bolus; we will continue gentle IV fluid hydration. We will avoid nephrotoxic medications as able. Monitor with daily chemistries. Nephrology, Dr. Hinojosa, has been consulted. Appreciate her evaluation recommendations. (2) Diabetes Qualifiers: Diabetes mellitus group home insulin use: with group home use Diabetes mellitus complication status: with kidney complications Chronic kidney disease stage: stage 4 (severe) Is this a current diagnosis for this admission?: Yes Plan: Patient is provided tube feedings. Registered dietitian has been consulted. We will monitor Accu-Cheks every 6 hours and provide Humalog for sliding scale coverage. Hypoglycemia protocol in place. (3) Hyperkalemia Is this a current diagnosis for this admission?: Yes Plan: Secondary to acute on chronic kidney disease. She received Kayexalate 15 g x1 overnight. Continues to trend down with IV fluids. Will repeat kayexalate today. Nephrology is consulted; appreciate their assistance. (4) Acute encephalopathy Is this a current diagnosis for this admission?: Yes Plan: Improved; likely secondary to hypoxia. (5) Acute respiratory failure with hypoxia Is this a current diagnosis for this admission?: Yes Plan: Significantly improved. Unclear etiology; found to be hypoxic with a saturation of 70% on room air by EM S. She is now maintaining oxygen saturations in the high 90s on 1 L/min. Lung sounds are diminished but clear. Chest x-ray and EKG are benign. There is no evidence of pneumonia or COPD exacerbation at this time. Possibly related to narcotic medications; patient utilizes Butrans patch and oxycodone as needed home. We will continue home oxygen as needed to maintain saturations >89% She is provided as needed nebulizer treatments. Will monitor closely for sedation secondary to narcotic medications; home regiment on hold at present. - Time Time Spent with patient: 35 or more minutes Medications reviewed and adjusted accordingly: Yes Anticipated discharge: Home with Homehealth - Inpatient Certification Based on my medical assessment, after consideration of the patient's comor bidities, presenting symptoms, or acuity I expect that the services needed warrant INPATIENT care.: Yes I certify that my determination is in accordance with my understanding of Medicare's requirements for reasonable and necessary INPATIENT services [42 CFR 412.3e].: Yes Medical Necessity: Failure to Improve With Outpatient Therapy, Significant Comorbidiites Make Outpatient Treatment Too Risky, Need Close Monitoring Due to Risk of Patient Decompensation, Need For IV Fluids
[2018-05-19] MEDS: ASPIRIN 81 MG TABLET, CHEWABLE PEG SCH ×2 (17:53→21:59)
[2018-05-19] MEDS: ACETAMINOPHEN SOLN 325 MG/10.15 ML UDCUP PEG PRN ×2 (17:54→22:01)
[2018-05-19] MEDS ORDERED: ATORVASTATIN CALCIUM 40 MG TABLET PO SCH (22:00)
[2018-05-19] MEDS ORDERED: PATIROMER 8.4 GM SUSP PACKET PO ONE (22:30)
[2018-05-20] MEDS: INSULIN LISPRO 100 UNIT/ML 3 ML VIAL SUBCUT SCH ×4 (00:10→18:58)
[2018-05-20] MEDS: NYSTATIN TOPICAL POWDER 15 GM TP SCH ×3 (05:40→21:54)
[2018-05-20] MEDS: NYSTATIN/TRIAMCIN CREAM 15 GM TP SCH ×3 (05:40→21:54)
[2018-05-20] MEDS: ACETAMINOPHEN SOLN 325 MG/10.15 ML UDCUP PEG PRN ×3 (06:02→21:49)
[2018-05-20 08:19] LABS: ABSOLUTE BASOPHILS # (AUTO) 0.1 10^3/uL (0.0-0.2); ABSOLUTE EOSINOPHILS # (AUTO) 0.4 10^3/uL (0.0-0.6); ABSOLUTE LYMPHOCYTES (AUTO) 1.5 10^3/uL (0.5-4.7); ABSOLUTE NEUT (AUTO) 5.2 10^3/uL (1.7-8.2); BASOPHILS % (AUTO) 0.7 % (0-2); EOSINOPHILS % (AUTO) 4.6 % (0-6); HEMATOCRIT 26.8 % (36.0-47.0); LYMPHOCYTES % (AUTO) 18.1 % (13-45); MEAN CORPUSCULAR HEMOGLOBIN 29.3 pg (27.0-33.4); MEAN CORPUSCULAR HGB CONC 33.5 g/dL (32.0-36.0); MEAN CORPUSCULAR VOLUME 87 fl (80-97); MONOCYTES % (AUTO) 12.5 % (3-13); PLATELET COUNT 240 10^3/uL (150-450); RED BLOOD COUNT 3.06 10^6/uL (3.72-5.28); RED CELL DISTRIBUTION WIDTH 14.1 % (11.5-14.0); SEGMENTED NEUTROPHILS % (AUTO) 64.1 % (42-78); TOTAL CELLS COUNTED % (AUTO) 100 %; WHITE BLOOD COUNT 8.2 10^3/uL (4.0-10.5)
[2018-05-20 08:39] LABS: ANION GAP 12 (5-19); BLOOD UREA NITROGEN 107 mg/dL (7-20); CALCIUM 9.8 mg/dL (8.4-10.2); CARBON DIOXIDE 20 mmol/L (22-30); CHLORIDE 103 mmol/L (98-107); GLUCOSE 89 mg/dL (75-110); POTASSIUM 5.1 mmol/L (3.6-5.0); SODIUM 134.6 mmol/L (137-145)
[2018-05-20] MEDS: FONDAPARINUX SODIUM INJ 2.5 MG/0.5 ML DISP.SYRIN SUBCUT SCH (08:44)
[2018-05-20] MEDS: DOCUSATE SODIUM 100 MG/10 ML UDC PEG SCH ×2 (10:27→18:58)
[2018-05-20] MEDS: CLONIDINE HCL 0.1 MG TABLET PEG SCH ×2 (10:32→21:49)
[2018-05-20] MEDS: MAGNESIUM HYDROXIDE SUSP 30 ML UDCUP PEG SCH (10:32)
[2018-05-20] MEDS: CLOPIDOGREL BISULFATE 75 MG TABLET PEG SCH (10:33)
[2018-05-20] MEDS: METOPROLOL TARTRATE 25 MG TABLET PEG SCH ×2 (10:33→21:49)
[2018-05-20] MEDS: ASPIRIN 81 MG TABLET, CHEWABLE PEG SCH ×2 (10:33→21:49)
[2018-05-20] MEDS: GABAPENTIN 100 MG CAPSULE PEG SCH (10:33)
[2018-05-20] MEDS ORDERED: CARBOXYMETHYLCELLULOSE SOD 0.5% 0.4 ML DROPERETTE OU PRN (13:06)
--- NOTE | 2018-05-20 13:13 | ADVANCED CARE ---
- Diagnosis (1) Acute on chronic renal failure Diagnosis Current: Yes (2) Diabetes Diagnosis Current: Yes (3) Hyperkalemia Diagnosis Current: Yes (4) Acute encephalopathy Diagnosis Current: Yes (5) Acute respiratory failure with hypoxia Diagnosis Current: Yes Attendance: The patient, Ms. Sonja Bolanos, and her son (by phone) Junito Bolanos. Resuscitation Status: Full Code Discussion: We discussed the patient's overall comorbid condition, age, and frequent readmissions. It was stated that it is important to begin advance care planning and asked if they had discussed what the patient would want if she were to become critically ill or has her diseases worsen with time. Both the son and patient were immediately adamant that the patient is to be a FULL CODE with all interventions provided. However, they were agreeable to meeting with Palliative Care for "informational purposes." Care Planning Goals: FULL CODE. Palliative Care consultation. Time Spent: >16 minutes
--- NOTE | 2018-05-20 13:21 | PDOC PROGRESS REPORT ---
Subjective Progress Note for:: 05/20/18 Subjective:: The patient is a 68-year-old female with a past medical history of hypertension, PVD, COPD, DM 2,CKD 4, bilateral BKA, CVA, and PEG tube who is on her fourth admission since March of this year for altered mental status, acute respiratory failure with hypoxia, acute on chronic kidney failure, and hyperkalemia. The patient was seen on morning rounds. She was found resting in bed comfortably on supplemental oxygen via nasal cannula at 0.5 lpm; oxygen was turned off while I was in the room and the patient continued to breathe easily with even and unlabored respirations and speaking in full sentences. She was alert and oriented to self, place, situation. She denies headaches, dizziness, chest pain, palpitation, dyspnea, orthopnea, abdominal pain, nausea vomiting and diarrhea. Her only concern today is her desire to be discharged home as soon as possible. We did speak with her son over the phone. We discussed advance care planning; see separate note dated same day, patient remains full code. We reviewed that the patient does not have any indications of pneumonia at this time, is currently maintaining oxygen saturations on room air, but continues to receive IV fluids and tube feedings for electrolyte correction and management of her acute on chronic kidney injury. They have no other questions or concerns at this time. No concerns per nursing. Reason For Visit: ASPIRATION PNA, UREMIA, ARF, HYPERKALEMIA Physical Exam Vital Signs: Temp Pulse Resp BP Pulse Ox 98.1 F 66 18 148/47 H 95 05/20/18 11:55 05/20/18 11:55 05/20/18 11:55 05/20/18 11:55 05/20/18 11:55 Intake & Output 05/19/18 05/20/18 05/21/18 06:59 06:59 06:59 Intake Total 1060 1025 Output Total 660 Balance 1060 365 Weight 63 kg 63.5 kg General appearance: PRESENT: no acute distress, disheveled, obese, well-develop ed Head exam: PRESENT: atraumatic, normocephalic Eye exam: PRESENT: conjunctiva pink, EOMI, PERRLA. ABSENT: scleral icterus Mouth exam: PRESENT: moist, tongue midline Teeth exam: PRESENT: poor dentation Respiratory exam: PRESENT: decreased breath sounds - Bibasilar; secondary to body habitus and poor inspiratory effort, symmetrical, unlabored. ABSENT: rales, rhonchi, wheezes Cardiovascular exam: PRESENT: RRR. ABSENT: diastolic murmur, rubs, systolic murmur Pulses: PRESENT: normal dorsalis pedis pul Vascular exam: PRESENT: normal capillary refill GI/Abdominal exam: PRESENT: normal bowel sounds, soft, other - G-tube. ABSENT: distended, guarding, mass, organolmegaly, rebound, tenderness Rectal exam: PRESENT: deferred Gentrourinary exam: PRESENT: indwelling catheter Extremities exam: PRESENT: full ROM - Generalized weakness, other - Right AKA, left BKA. ABSENT: calf tenderness, clubbing, pedal edema Neurological exam: PRESENT: alert, awake, oriented to person, oriented to place, oriented to situation, CN II-XII grossly intact, other - Forgetful; easily confu sed. ABSENT: motor sensory deficit Psychiatric exam: PRESENT: appropriate affect, depressed, other - Tearful. ABSENT: homicidal ideation, suicidal ideation Skin exam: PRESENT: dry, warm. ABSENT: cyanosis, rash Results Laboratory Results: 05/20/18 07:34 05/20/18 07:34 05/20/18 05/20/18 07:34 07:34 WBC 8.2 RBC 3.06 L Hgb 9.0 L Hct 26.8 L MCV 87 MCH 29.3 MCHC 33.5 RDW 14.1 H Plt Count 240 Seg Neutrophils % 64.1 Lymphocytes % 18.1 Monocytes % 12.5 Eosinophils % 4.6 Basophils % 0.7 Absolute Neutrophils 5.2 Absolute Lymphocytes 1.5 Absolute Monocytes 1.0 Absolute Eosinophils 0.4 Absolute Basophils 0.1 Sodium 134.6 L Potassium 5.1 H Chloride 103 Carbon Dioxide 20 L Anion Gap 12 BUN 107 H Creatinine 2.67 H Est GFR ( Amer) 21 L Est GFR (Non-Af Amer) 18 L Glucose 89 Calcium 9.8 05/18/18 05/18/18 05/18/18 21:08 21:08 21:08 Creatine Kinase 25 L CK-MB (CK-2) 0.93 Troponin I < 0.012 NT-Pro-B Natriuret Pep 4430 H Impressions: Chest X-Ray 05/18/18 19:47 IMPRESSION: Clear lungs. Assessment & Plan - Diagnosis (1) Acute on chronic renal failure Qualifiers: Chronic kidney disease stage: stage 4 (severe) Is this a current diagnosis for this admission?: Yes Plan: Improved; Cr 3.24-> 3.19-> 2.67The patient is admitted with acute on chronic renal failure. Baseline creatinine of 2.2. She is found to have hyperkalemia which is trending down with IV fluids. Likely secondary to dehydration. Carrillo catheter has been placed for strict I&O's. She received 2 L IV fluid bolus; we will continue gentle IV fluid hydration. Patient currently receives 2.4 L/24 hr fluid between IVF, peg flushes, and free water in tube feeds. We will avoid nephrotoxic medications as able. Monitor with daily chemistries. Nephrology, Dr. Sandy has been consulted. Appreciate her evaluation recommendations. (2) Diabetes Qualifiers: Diabetes mellitus assisted insulin use: with long wall shear operator use Diabetes shea itus complication status: with kidney complications Chronic kidney disease stage: stage 4 (severe) Is this a current diagnosis for this admission?: Yes Plan: Patient is provided tube feedings. Registered dietitian has been consulted. We will monitor Accu-Cheks every 6 hours and provide Humalog for sliding scale coverage. Hypoglycemia protocol in place. (3) Hyperkalemia Is this a current diagnosis for this admission?: Yes Plan: Secondary to acute on chronic kidney disease. She received Kayexalate 15 g x2. Continues to trend down with IV fluids. Nephrology is consulted; appreciate their assistance. (4) Acute encephalopathy Is this a current diagnosis for this admission?: Yes Plan: Improved; likely secondary to hypoxia. (5) Acute respiratory failure with hypoxia Is this a current diagnosis for this admission?: Yes Plan: Resolved; now maintaining oxygen saturations on room air. Unclear etiology; though I have a high suspicion for DAKOTAH as the patient's son reports that her respiratory difficulty always occurs at night while sleeping. She does have an outpatient sleep study scheduled by her PCP. Lung sounds are diminished but clear. Chest x-ray and EKG are benign. There is no evidence of pneumonia or COPD exacerbation at this time. Possibly related to narcotic medications; patient utilizes Butrans patch and oxycodone as needed home. We will continue home oxygen as needed to maintain saturations >89% She is provided as needed nebulizer treatments. Will monitor closely for sedation secondary to narcotic medications; home regiment on hold at present. - Time Time Spent with patient: 15-24 minutes Medications reviewed and adjusted accordingly: Yes Anticipated discharge: Home with Homehealth Within: within 72 hours - Inpatient Certification Based on my medical assessment, after consideration of the patient's comorbidities, presenting symptoms, or acuity I expect that the services needed warrant INPATIENT care.: Yes I certify that my determination is in accordance with my understanding of Medicare's requirements for reasonable and necessary INPATIENT services [42 CFR 412.3e].: Yes Medical Necessity: Need For IV Fluids
[2018-05-20] MEDS: NORMAL SALINE 1000 ML 1,000 ML IV PRN (15:13)
[2018-05-20] MEDS: CEFTRIAXONE 1 GM/D5W RTU 1 GM/50 ML RTUPB IV SCH (15:16)
[2018-05-20] MEDS: CETIRIZINE 5 MG TABLET PO SCH (16:00)
--- NOTE | 2018-05-20 21:11 | PDOC CONSULTATION ---
Consultation Consult Date: 05/20/18 Attending physician:: INDRA CLANCY Consult reason:: I was asked to see the patient because of worsening kidney function and hyperkalemia. History of Present Illness Admission Date/PCP: 05/19/18 04:07 SHELBY RAYA MD History of Present Illness: GEORGE LAUGHLIN is a 68 year old female known to me with a complex history including chronic kidney disease stage V, diabetes mellitus type 2, hypertension, anemia of chronic kidney disease, peripheral vascular disease, previous CVA, bilateral amputations who was brought into the emergency room by [facility] because the patient was found to have altered mental status at home by the son, associated with shortness of breath with oxygen saturation as low as 70 percent. Initial evaluation showed hypoxia, potassium of 6.2, BUN of 130 creatinine of 3.24. Urinalysis also showed 100 protein, glucose of 50, small blood, positive nitrite and large leukocyte esterase. Blood culture showed gram-positive cocci in clusters in 1 of 2 bottles. Urine culture showed gram- negative rods greater than 100,000. Chest x-ray did not show any acute changes. When I saw the patient today the patient is awake alert and answering questions coherently. He said she feels tired but denies any other symptoms including chest pains, shortness of breath nor any pain anywhere. She is on tube feeding using Nepro. Said she drinks water a little bit sometimes. Patient was treated with IV fluid hydration, Patiromer for the hyperkalemia. The patient could not not really give any other further history aside from the above. However from the way she was described on admission she seems improved clinically today. Her labs today showed potassium of 5.1, BUN of 107, creatinine of 2.67. Note that the patient had a history of acute on chronic kidney disease last year after her vascular surgeries requiring hemodialysis treatment for about 6 months until February 2018. She also has multiple hospitalizations after discontinuation of dialysis so we were able to see her for follow-up in the clinic after discontinuation of dialysis. Past Medical History Cardiac Medical History: Reports: Hyperlipidemia, Hypertension-primary, Peripheral Vascular Disease Pulmonary Medical History: Reports: Chronic Obstructive Pulmonary Disease (COPD) EENT Medical History: Reports: Cataracts Neurological Medical History: Reports: Ischemic CVA Endocrine Medical History: Reports: Diabetes Mellitus Type 2 Complications of Diabetes: Reports: Autonomic Neuropathy, Diabetic Foot Ulcer, Nephropathy Renal/ Medical History: Reports: Chronic Kidney Disease Stage IV, Hyperkalemia, Hyperphosphatemia, Proteinuria, Secondary Hyperparathyroidism, Other - History of acute kidney injury requiring hemodialysis for 6 months in 2018 Musculoskeltal Medical History: Reports: Other - Right AKA and left BKA, left knee fracture Psychiatric Medical History: Reports: Depression Hematology Medical History: Reports Anemia of Chronic Kidney Disease Past Surgical History Past Surgical History: Reports: Hysterectomy, Orthopedic Surgery - Left BKA, right AKA, Vascular Surgery - Failed angioplasty and stenting into the lower extremities. Social History Lives with: Family - Lives with son Smoking Status: Former Smoker Frequency of Alcohol Use: None Hx Recreational Drug Use: No Drugs: None Hx Prescription Drug Abuse: No - Advance Directive Resuscitation Status: Full Code Family History Family History: Chronic Kidney Disease - Grandson, CVA - Mother, Malignancy - Father had leukemia Parental Family History Reviewed: Yes Children Family History Reviewed: Yes Sibling(s) Family History Reviewed.: Yes Medication/Allergy Home Medications: Amlodipine Besylate [Norvasc 5 mg Tablet] 5 mg PO DAILY 03/28/18 Insulin Aspart [Novolog Flexpen] 0 unit SUBCUT .SLD SCALE PRN 03/28/18 Buprenorphine [Butrans] 1 patch TD Q7D 04/18/18 Clonidine HCl [Catapres 0.1 mg Tablet] 0.1 mg PO Q12 04/18/18 Metoprolol Tartrate [Lopressor 25 mg Tablet] 12.5 mg PO Q12 04/18/18 Naloxone HCl [Narcan] 1 spray NASL DAILY PRN 04/18/18 Oxycodone HCl [Oxy-Ir 5 mg Tablet] 5 mg PO Q4HP PRN 04/18/18 Nystatin [Mycostatin Topical Powder 15 gm] 1 applic TP Q8 #1 bottle 04/22/18 Nystatin/Triamcin [Mycolog-II Cream 15 gm] 1 applic TP Q8 #1 tube 04/22/18 Aspirin [Lo-Dose Aspirin EC] 81 mg PO BID 05/19/18 Atorvastatin Calcium [Lipitor 40 mg Tablet] 40 mg PO QHS 05/19/18 Clopidogrel Bisulfate [Plavix 75 mg Tablet] 75 mg PO DAILY 05/19/18 Dextrose [Glucose] 1 each PO PRN PRN 05/19/18 Fluconazole [Diflucan] 100 mg PO DAILY 05/19/18 Fluconazole [Diflucan] 150 mg PO ONCE PRN 05/19/18 Gabapentin [Neurontin 100 mg Capsule] 100 mg PO QHS 05/19/18 Ondansetron HCl [Zofran 4 mg Tablet] 1 tab PO Q4H PRN 05/19/18 Allergies/Adverse Reactions: heparin Allergy (Intermediate, Verified 05/18/18 19:46) Hives latex [Latex] Allergy (Mild, Verified 05/18/18 19:46) RASH Penicillins Allergy (Mild, Verified 05/18/18 19:46) RASH, BREATHING DIFFICULTY coconut Allergy (Verified 05/18/18 19:46) codeine Allergy (Verified 05/18/18 19:46) seafood Allergy (Uncoded 05/18/18 19:46) Review of Systems All systems: reviewed and no additional remarkable complaints except as stated Review of Systems: Constitutional: ABSENT: chills, fever(s), headache(s), weight gain, weight loss; admits fatigue and tiredness Eyes: ABSENT: visual disturbances Ears: ABSENT: hearing changes Cardiovascular: ABSENT: chest pain, dyspnea on exertion, edema, orthropnea, palpitations Respiratory: ABSENT: cough, hemoptysis; presented with shortness of breath Gastrointestinal: ABSENT: abdominal pain, constipation, diarrhea, hematemesis, hematochezia, nausea, vomiting Genitourinary: ABSENT: dysuria, hematuria Musculoskeletal: ABSENT: joint swelling Integumentary: ABSENT: rash, wounds Neurological: ABSENT: abnormal gait, abnormal speech, confusion, dizziness, focal weakness, numbness, syncope Psychiatric: ABSENT: anxiety, depression Endocrine: ABSENT: cold intolerance, heat intolerance, polydipsia, polyuria Hematologic/Lymphatic: ABSENT: easy bleeding, easy bruising, lymphadenopathy Physical Exam Vital Signs: Temp Pulse Resp BP Pulse Ox 98.2 F 66 16 163/53 H 92 05/20/18 15:26 05/20/18 15:26 05/20/18 15:26 05/20/18 15:26 05/20/18 15:26 Intake & Output 05/19/18 05/20/18 05/21/18 06:59 06:59 06:59 Intake Total 1060 1025 425 Output Total 660 800 Balance 1060 365 -375 Weight 63 kg 63.5 kg Exam: General appearance: No acute distress, cooperative, well-developed, well- nourished Head exam: PRESENT: atraumatic, normocephalic Eye exam: PRESENT: Conjunctiva pale, EOMI, PERRLA. ABSENT: conjunctival inje ction, scleral icterus Mouth exam: PRESENT: moist, neck supple, tongue midline Neck exam: PRESENT: full ROM. ABSENT: carotid bruit, JVD, lymphadenopathy, thyromegaly Respiratory exam: PRESENT: clear to auscultation bilaterally. ABSENT: rales, rhonchi, stridor, wheezes Cardiovascular exam: PRESENT: RRR, +S1, +S2. Grade 2/6 systolic murmur Pulses: PRESENT: normal radial pulses, normal dorsalis pedis pulses GI/Abdominal exam: PRESENT: normal bowel sounds, soft. PEG tube in place and functional. Positive with chronic indwelling Carrillo catheter. ABSENT: guarding, mass, tenderness Rectal exam: Deferred Extremities exam: PRESENT: Right AKA and left BKA ABSENT: calf tenderness, pedal edema Musculoskeletal: PRESENT: full ROM. ABSENT: deformity Neurological exam: PRESENT: alert, Awake, Oriented to person, Oriented to place, Oriented to time, reflexes normal, CN II-XII grossly intact. ABSENT: motor sensory deficit Psychiatric exam: PRESENT: appropriate affect, normal mood. ABSENT: homicidal ideation, suicidal ideation Skin exam: PRESENT: intact, dry, warm. ABSENT: rash Results Laboratory Results: 05/20/18 07:34 05/20/18 07:34 05/20/18 05/20/18 07:34 07:34 WBC 8.2 RBC 3.06 L Hgb 9.0 L Hct 26.8 L MCV 87 MCH 29.3 MCHC 33.5 RDW 14.1 H Plt Count 240 Seg Neutrophils % 64.1 Lymphocytes % 18.1 Monocytes % 12.5 Eosinophils % 4.6 Basophils % 0.7 Absolute Neutrophils 5.2 Absolute Lymphocytes 1.5 Absolute Monocytes 1.0 Absolute Eosinophils 0.4 Absolute Basophils 0.1 Sodium 134.6 L Potassium 5.1 H Chloride 103 Carbon Dioxide 20 L Anion Gap 12 BUN 107 H Creatinine 2.67 H Est GFR ( Amer) 21 L Est GFR (Non-Af Amer) 18 L Glucose 89 Calcium 9.8 05/18/18 05/18/18 05/18/18 21:08 21:08 21:08 Creatine Kinase 25 L CK-MB (CK-2) 0.93 Troponin I < 0.012 NT-Pro-B Natriuret Pep 4430 H Impressions: Chest X-Ray 05/18/18 19:47 IMPRESSION: Clear lungs. Assessment & Plan - Diagnosis (1) Acute on chronic renal failure Qualifiers: Chronic kidney disease stage: stage 4 (severe) Is this a current diagnosis for this admission?: Yes Plan: Patient is nonoliguric and her kidney function improved with IV fluid hydration. So this is likely due to prerenal factors including volume depletion with dehy dration. Continue maintenance IV fluid hydration currently. Patient does not need any acute renal replacement therapy at this time. When I asked the patient if she would go for dialysis again if her kidney function deteriorates again in the future, he replied that she would go for dialysis again if needed. (2) CKD (chronic kidney disease) stage 4, GFR 15-29 ml/min Is this a current diagnosis for this admission?: Yes Plan: This is due to underlying diabetic nephropathy with known proteinuria. (3) Hyperkalemia Is this a current diagnosis for this admission?: Yes Plan: Resolving with IV fluid hydration and anti-hyperkalemia regimen. Continue low potassium prerenal diet. (4) Acute encephalopathy Is this a current diagnosis for this admission?: Yes Plan: Due to hypoxia. Currently at baseline mental status. (5) Acute respiratory failure with hypoxia Is this a current diagnosis for this admission?: Yes Plan: Resolved. (6) Diabetes mellitus type 2 in obese Is this a current diagnosis for this admission?: Yes (7) UTI (urinary tract infection) due to urinary indwelling Carrillo catheter Is this a current diagnosis for this admission?: Yes Plan: On IV ceftriaxone. (8) Anemia Qualifiers: Anemia type: due to chronic kidney disease Chronic kidney disease stage: stage 4 (severe) Qualified Code(s): N18.4 - Chronic kidney disease, stage 4 (severe); D63.1 - Anemia in chronic kidney disease Is this a current diagnosis for this admission?: Yes (9) Hypertension Is this a current diagnosis for this admission?: Yes - Notes Notes: Thank you very much for this consultation. - Time Time Spent: 50 to 70 Minutes
[2018-05-21] MEDS: INSULIN LISPRO 100 UNIT/ML 3 ML VIAL SUBCUT SCH ×5 (05:14→23:12)
[2018-05-21] MEDS: NYSTATIN TOPICAL POWDER 15 GM TP SCH ×3 (05:15→22:38)
[2018-05-21] MEDS: NYSTATIN/TRIAMCIN CREAM 15 GM TP SCH ×3 (05:15→22:38)
[2018-05-21] MEDS: NORMAL SALINE 1000 ML 1,000 ML IV PRN (06:05)
[2018-05-21 08:03] LABS: ALANINE AMINOTRANSFERASE 140 U/L (9-52); ALKALINE PHOSPHATASE 141 U/L (38-126); ANION GAP 12 (5-19); ASPARTATE AMINO TRANSFERASE 67 U/L (14-36); BILIRUBIN,DIRECT 0.3 mg/dL (0.0-0.4); BILIRUBIN,TOTAL 0.3 mg/dL (0.2-1.3); BLOOD UREA NITROGEN 94 mg/dL (7-20); CALCIUM 9.8 mg/dL (8.4-10.2); CARBON DIOXIDE 21 mmol/L (22-30); CHLORIDE 106 mmol/L (98-107); GLUCOSE 76 mg/dL (75-110); POTASSIUM 4.8 mmol/L (3.6-5.0); SODIUM 138.8 mmol/L (137-145)
[2018-05-21] MEDS: METOPROLOL TARTRATE 25 MG TABLET PEG SCH ×2 (10:01→22:40)
[2018-05-21] MEDS: DOCUSATE SODIUM 100 MG/10 ML UDC PEG SCH ×2 (10:01→17:33)
[2018-05-21] MEDS: FONDAPARINUX SODIUM INJ 2.5 MG/0.5 ML DISP.SYRIN SUBCUT SCH (10:01)
[2018-05-21] MEDS: ASPIRIN 81 MG TABLET, CHEWABLE PEG SCH ×2 (10:01→22:40)
[2018-05-21] MEDS: CLONIDINE HCL 0.1 MG TABLET PEG SCH ×2 (10:01→22:41)
[2018-05-21] MEDS: CLOPIDOGREL BISULFATE 75 MG TABLET PEG SCH (10:02)
[2018-05-21] MEDS: CEFTRIAXONE 1 GM/D5W RTU 1 GM/50 ML RTUPB IV SCH (10:02)
[2018-05-21] MEDS: GABAPENTIN 100 MG CAPSULE PEG SCH (10:02)
[2018-05-21] MEDS: CETIRIZINE 5 MG TABLET PO SCH (10:02)
[2018-05-21] MEDS: MAGNESIUM HYDROXIDE SUSP 30 ML UDCUP PEG SCH (10:02)
[2018-05-21] MEDS ORDERED: NORMAL SALINE 1000 ML 1,000 ML IV PRN (14:27)
--- NOTE | 2018-05-21 14:39 | PDOC PROGRESS REPORT ---
Subjective Progress Note for:: 05/21/18 Subjective:: The patient is a 68-year-old female with a past medical history of hypertension, PVD, COPD, DM 2,CKD 4, bilateral BKA, CVA, and PEG tube who is on her fourth admission since March of this year for altered mental status, acute respiratory failure with hypoxia, acute on chronic kidney failure, and hyperkalemia. The patient was seen on morning rounds. She was found resting in bed comfortably on room air. She was sleeping soundly; she woke slightly when I said her name but quickly fell back to sleep. She appears to be comfortable and not in any acute distress. Overnight pulse oximetry was completed and demonstrated desaturations <89% for greater than 5 minutes while on room air. Will ask d/c planning to assist with obtaining home O2. I did speak with the patient's PCP, Dr. Stewart today. Discontinued Milk of Mag. Reviewed overnight study and lab work. All questions answered. No concerns per nursing. Reason For Visit: ASPIRATION PNA, UREMIA, ARF, HYPERKALEMIA Physical Exam Vital Signs: Temp Pulse Resp BP Pulse Ox 98.4 F 68 16 185/64 H 99 05/21/18 12:00 05/21/18 14:00 05/21/18 12:00 05/21/18 12:00 05/21/18 12:00 Pulse Oximeter Nocturnal Start: 05/20/18 17:05 Freq: RTQ4 Status: Complete Protocol: Document 05/21/18 07:10 CMI (Rec: 05/21/18 07:10 CMI [id number]) Nocturnal Pulse Oximetry Equipment Usage Equipment Discontinued Continuous SpO2 Machine # 6 Intake & Output 05/20/18 05/21/18 05/22/18 06:59 06:59 06:59 Intake Total 1025 2035 50 Output Total 660 1400 Balance 365 635 50 Weight 63.5 kg 66.3 kg General appearance: PRESENT: no acute distress, disheveled - hair is matted, obese, well-developed Head exam: PRESENT: atraumatic, normocephalic Eye exam: PRESENT: conjunctiva pink, EOMI, PERRLA Teeth exam: PRESENT: poor dentation Respiratory exam: PRESENT: clear to auscultation nicole, decreased breath sounds - bibasilar, symmetrical, unlabored. ABSENT: rales, rhonchi, wheezes Cardiovascular exam: PRESENT: RRR. ABSENT: diastolic murmur, rubs, systolic murmur Vascular exam: PRESENT: normal capillary refill GI/Abdominal exam: PRESENT: normal bowel sounds, soft, other - G tube. ABSENT: distended, guarding, mass, organolmegaly, rebound, tenderness Gentrourinary exam: PRESENT: indwelling catheter Extremities exam: PRESENT: other - Right AKA, left BKA Musculoskeletal exam: PRESENT: full ROM Neurological exam: PRESENT: alert, awake, oriented to person, oriented to place, CN II-XII grossly intact. ABSENT: motor sensory deficit Skin exam: PRESENT: dry, warm. ABSENT: cyanosis, intact - Stage II decubitus ulcer, rash Results Laboratory Results: 05/20/18 07:34 05/21/18 07:00 05/21/18 07:00 Sodium 138.8 Potassium 4.8 Chloride 106 Carbon Dioxide 21 L Anion Gap 12 BUN 94 H Creatinine 2.41 H Est GFR ( Amer) 24 L Est GFR (Non-Af Amer) 20 L Glucose 76 Calcium 9.8 Phosphorus 5.0 H Magnesium 3.6 H Total Bilirubin 0.3 AST 67 H ALT 140 H Alkaline Phosphatase 141 H Total Protein 6.0 L Albumin 3.0 L 05/19/18 02:20 Catheterized Urine Urine Culture - Final Escherichia Coli 05/18/18 05/18/18 05/18/18 21:08 21:08 21:08 Creatine Kinase 25 L CK-MB (CK-2) 0.93 Troponin I < 0.012 NT-Pro-B Natriuret Pep 4430 H Impressions: Chest X-Ray 05/18/18 19:47 IMPRESSION: Clear lungs. Assessment & Plan - Diagnosis (1) Acute on chronic renal failure Qualifiers: Chronic kidney disease stage: stage 4 (severe) Is this a current diagnosis for this admission?: Yes Plan: Improved; Cr 3.24-> 3.19-> 2.67-> 2.41. Nearing baseline. The patient is admitted with acute on chronic renal failure. Baseline creatinine of 2.2. Hyperkalemia has resolved. Likely secondary to dehydration. Carrillo catheter has been placed for strict I&O's. She received 2 L IV fluid bolus; we will continue gentle IV fluid hydration. Patient currently receives 1.4 L/24 hr fluid between IVF, peg flushes, and free water in tube feeds. We will avoid nephrotoxic medications as able. Monitor with daily chemistries. Nephrology, Dr. Sandy has been consulted. Appreciate her evaluation recommendations. (2) Diabetes Qualifiers: Diabetes mellitus sales account executive insulin use: with chcf use Diabetes mellitus complication status: with kidney complications Chronic kidney disease stage: stage 4 (severe) Is this a current diagnosis for this admission?: Yes Plan: Patient is provided tube feedings; has not required glucose correction this admission. Registered dietitian has been consulted. We will monitor Accu-Cheks every 6 hours and provide Humalog for sliding scale coverage. Hypoglycemia protocol in place. (3) Hyperkalemia Is this a current diagnosis for this admission?: Yes Plan: Resolved. Secondary to acute on chronic kidney disease. (4) Acute encephalopathy Is this a current diagnosis for this admission?: Yes Plan: Resolved; now at baseline. Likely secondary to hypoxia. (5) Acute respiratory failure with hypoxia Is this a current diagnosis for this admission?: Yes Plan: Resolved; now maintaining oxygen saturations on room air. Unclear etiology; though I have a high suspicion for DAKOTAH as the patient's son reports that her respiratory difficulty always occurs at night while sleeping. She does have an outpatient sleep study scheduled by her PCP. Lung sounds are diminished but clear. Chest x-ray and EKG are benign. There is no evidence of pneumonia or COPD exacerbation at this time. Possibly related to narcotic medications; patient utilizes Butrans patch and oxycodone as needed at home. We will continue supplemental oxygen as needed to maintain saturations >89% Overnight pulse oximetry study did show desaturation events below 89% for more than 5 minutes. Will request home oxygen for use while sleeping. She is provided as needed nebulizer treatments. Will monitor closely for sedation secondary to narcotic medications; home regiment on hold at present. (6) UTI (urinary tract infection) Qualifiers: Urinary tract infection type: acute cystitis Hematuria presence: with hematuria Qualified Code(s): N30.01 - Acute cystitis with hematuria Is this a current diagnosis for this admission?: Yes Plan: Urinalysis is positive for UTI. Urine culture demonstrates carlton sensitive e. coli. Currently on Rocephin. - Time Time Spent with patient: 15-24 minutes Medications reviewed and adjusted accordingly: Yes Anticipated discharge: Home with Homehealth Within: within 48 hours
[2018-05-22] MEDS: NYSTATIN/TRIAMCIN CREAM 15 GM TP SCH ×3 (05:45→21:37)
[2018-05-22] MEDS: NYSTATIN TOPICAL POWDER 15 GM TP SCH ×3 (05:45→21:38)
[2018-05-22] MEDS: INSULIN LISPRO 100 UNIT/ML 3 ML VIAL SUBCUT SCH ×3 (06:26→17:11)
[2018-05-22 07:28] LABS: HEMATOCRIT 28.4 % (36.0-47.0); HEMOGLOBIN 9.5 g/dL (12.0-15.5); MEAN CORPUSCULAR HEMOGLOBIN 28.9 pg (27.0-33.4); MEAN CORPUSCULAR HGB CONC 33.3 g/dL (32.0-36.0); MEAN CORPUSCULAR VOLUME 87 fl (80-97); PLATELET COUNT 267 10^3/uL (150-450); RED BLOOD COUNT 3.27 10^6/uL (3.72-5.28); RED CELL DISTRIBUTION WIDTH 14.4 % (11.5-14.0); WHITE BLOOD COUNT 7.8 10^3/uL (4.0-10.5)
[2018-05-22 07:44] LABS: ANION GAP 11 (5-19); BLOOD UREA NITROGEN 83 mg/dL (7-20); CALCIUM 9.9 mg/dL (8.4-10.2); CARBON DIOXIDE 20 mmol/L (22-30); CHLORIDE 108 mmol/L (98-107); GLUCOSE 93 mg/dL (75-110); POTASSIUM 4.7 mmol/L (3.6-5.0); SODIUM 139.3 mmol/L (137-145)
[2018-05-22] MEDS: CEFTRIAXONE 1 GM/D5W RTU 1 GM/50 ML RTUPB IV SCH (10:14)
[2018-05-22] MEDS: CLONIDINE HCL 0.1 MG TABLET PEG SCH ×2 (10:15→21:37)
[2018-05-22] MEDS: GABAPENTIN 100 MG CAPSULE PEG SCH (10:15)
[2018-05-22] MEDS: CLOPIDOGREL BISULFATE 75 MG TABLET PEG SCH (10:15)
[2018-05-22] MEDS: METOPROLOL TARTRATE 25 MG TABLET PEG SCH ×2 (10:16→21:37)
[2018-05-22] MEDS: FONDAPARINUX SODIUM INJ 2.5 MG/0.5 ML DISP.SYRIN SUBCUT SCH (10:18)
[2018-05-22] MEDS: DOCUSATE SODIUM 100 MG/10 ML UDC PEG SCH ×2 (10:19→18:19)
[2018-05-22] MEDS: CETIRIZINE 5 MG TABLET PO SCH (10:19)
[2018-05-22] MEDS: ASPIRIN 81 MG TABLET, CHEWABLE PEG SCH ×2 (10:20→21:37)
--- NOTE | 2018-05-22 13:20 | PDOC PROGRESS REPORT ---
Subjective Progress Note for:: 05/22/18 Subjective:: The patient is a 68-year-old female with a past medical history of hypertension, PVD, COPD, DM 2,CKD 4, bilateral BKA, CVA, and PEG tube who is on her fourth admission since March of this year for altered mental status, acute respiratory failure with hypoxia, acute on chronic kidney failure, and hyperkalemia. The patient was seen on morning rounds. She was found resting in bed comfortably on room air. She was sleeping soundly; but woke easily when I said her name. We did speak with the patient's son, Junito, by phone while I was in the room. She reports that she is feeling well and has no new concerns or complaints today. She denies fever, chills, chest pain, palpitations, abdominal pain, nausea and vomiting. No concerns per nursing. Reason For Visit: ASPIRATION PNA, UREMIA, ARF, HYPERKALEMIA Physical Exam Vital Signs: Temp Pulse Resp BP Pulse Ox 97.7 F 67 15 178/60 H 97 05/22/18 08:00 05/22/18 08:00 05/22/18 08:00 05/22/18 08:00 05/22/18 08:00 Pulse Oximeter Nocturnal Start: 05/20/18 17:05 Freq: RTQ4 Status: Complete Protocol: Document 05/21/18 07:10 CMI (Rec: 05/21/18 07:10 CMI [id number]) Nocturnal Pulse Oximetry Equipment Usage Equipment Discontinued Continuous SpO2 Machine # 6 Intake & Output 05/21/18 05/22/18 05/23/18 06:59 06:59 06:59 Intake Total 2034 2021 Output Total 1400 1400 Balance 635 622 Weight 66.3 kg 67.9 kg General appearance: PRESENT: no acute distress, disheveled - hair matted, obese, well-developed Head exam: PRESENT: atraumatic, normocephalic Eye exam: PRESENT: conjunctiva pink, EOMI, PERRLA. ABSENT: scleral icterus Mouth exam: PRESENT: moist, tongue midline Respiratory exam: PRESENT: clear to auscultation nicole, decreased breath sounds, symmetrical, unlabored, other. ABSENT: rales, rhonchi, wheezes Cardiovascular exam: PRESENT: RRR. ABSENT: diastolic murmur, rubs, systolic murmur Vascular exam: PRESENT: normal capillary refill GI/Abdominal exam: PRESENT: normal bowel sounds, soft, other - G tube. ABSENT: distended, guarding, mass, organolmegaly, rebound, tenderness Rectal exam: PRESENT: deferred Extremities exam: PRESENT: full ROM, other - Right AKA, left BKA. ABSENT: calf tenderness, clubbing, pedal edema Neurological exam: PRESENT: alert, awake, oriented to person, oriented to place, oriented to time, oriented to situation, CN II-XII grossly intact. ABSENT: motor sensory deficit Psychiatric exam: PRESENT: appropriate affect, normal mood. ABSENT: homicidal ideation, suicidal ideation Skin exam: PRESENT: dry, warm, other - Stage II decubitus ulcer. ABSENT: cyanosis, rash Results Laboratory Results: 05/22/18 06:54 05/22/18 06:54 05/22/18 05/22/18 06:54 06:54 WBC 7.8 RBC 3.27 L Hgb 9.5 L Hct 28.4 L MCV 87 MCH 28.9 MCHC 33.3 RDW 14.4 H Plt Count 267 Sodium 139.3 Potassium 4.7 Chloride 108 H Carbon Dioxide 20 L Anion Gap 11 BUN 83 H Creatinine 2.41 H Est GFR ( Amer) 24 L Est GFR (Non-Af Amer) 20 L Glucose 93 Calcium 9.9 05/18/18 20:14 Blood Blood Culture - Final Staphylococcus Hominis 05/19/18 02:20 Catheterized Urine Urine Culture - Final Escherichia Coli 05/18/18 05/18/18 05/18/18 21:08 21:08 21:08 Creatine Kinase 25 L CK-MB (CK-2) 0.93 Troponin I < 0.012 NT-Pro-B Natriuret Pep 4430 H Impressions: Chest X-Ray 05/18/18 19:47 IMPRESSION: Clear lungs. Assessment & Plan - Diagnosis (1) Acute on chronic renal failure Qualifiers: Chronic kidney disease stage: stage 4 (severe) Is this a current diagnosis for this admission?: Yes Plan: Improved; Cr 3.24-> 3.19-> 2.67-> 2.41. Nearing baseline. The patient is admitted with acute on chronic renal failure. Baseline creatinine of 2.2. Hyperkalemia has resolved. Likely secondary to dehydration. Carrillo catheter has been placed for strict I&O's. Discontinue IV fluids today. Continue tube feedings with q2 hour flushes; will receive 1.4 L/24 hr fluid between peg flushes and free water in tube feeds. Will ask psychiatric registered nurse to make recommendations for home tube feeding formula and flushes to prevent dehydration once discharged. We will avoid nephrotoxic medications as able. Monitor with daily chemistries. Nephrology, Dr. Sandy has been consulted. Appreciate her evaluation recommendations. (2) Diabetes Qualifiers: Diabetes mellitus long-term insulin use: with watermelon inspector use Diabetes mellitus complication status: with kidney complications Chronic kidney disease stage: stage 4 (severe) Is this a current diagnosis for this admission?: Yes Plan: Patient is provided tube feedings; has not required glucose correction this admission. Registered dietitian has been consulted. We will monitor Accu-Cheks every 6 hours and provide Humalog for sliding scale coverage. Hypoglycemia protocol in place. (3) Hyperkalemia Is this a current diagnosis for this admission?: Yes Plan: Resolved. Secondary to acute on chronic kidney disease. (4) Acute encephalopathy Is this a current diagnosis for this admission?: Yes Plan: Resolved; now at baseline. Likely secondary to hypoxia. (5) Acute respiratory failure with hypoxia Is this a current diagnosis for this admission?: Yes Plan: Resolved; now maintaining oxygen saturations on room air when awake. She desats while sleeping. Unclear etiology; though I have a high suspicion for DAKOTAH as the patient's son reports that her respiratory difficulty always occurs at night while sleeping. She does have an outpatient sleep study scheduled by her PCP. Chest x-ray and EKG are benign. There is no evidence of pneumonia or COPD exacerbation at this time. Possibly related to narcotic medications; patient utilizes Butrans patch and oxycodone as needed at home (has not received narcotics while here). We will continue supplemental oxygen as needed to maintain saturations >89% Overnight pulse oximetry study did show desaturation events below 89% for more than 5 minutes. Will request home oxygen for use while sleeping. She is provided as needed nebulizer treatments. Will monitor closely for sedation secondary to narcotic medications; home regiment on hold at present. (6) UTI (urinary tract infection) Qualifiers: Urinary tract infection type: acute cystitis Hematuria presence: with hematuria Qualified Code(s): N30.01 - Acute cystitis with hematuria Is this a current diagnosis for this admission?: Yes Plan: Urinalysis is positive for UTI. Urine culture demonstrates carlton sensitive e. coli. Currently on Rocephin, Day #3 - Time Time Spent with patient: 25-34 minutes Medications reviewed and adjusted accordingly: Yes Anticipated discharge: Home with Homehealth Within: within 24 hours
[2018-05-23] MEDS: INSULIN LISPRO 100 UNIT/ML 3 ML VIAL SUBCUT SCH ×3 (01:40→11:59)
[2018-05-23] MEDS ORDERED: HYDRALAZINE HCL 10 MG TABLET PEG PRN (04:54)
[2018-05-23] MEDS ORDERED: TRAZODONE HCL 50 MG TABLET PEG ONE (05:00)
[2018-05-23] MEDS: NYSTATIN/TRIAMCIN CREAM 15 GM TP SCH ×2 (05:27→13:24)
[2018-05-23] MEDS: NYSTATIN TOPICAL POWDER 15 GM TP SCH ×2 (05:27→13:25)
[2018-05-23 06:25] LABS: HEMOGLOBIN 9.8 g/dL (12.0-15.5); MEAN CORPUSCULAR HEMOGLOBIN 28.8 pg (27.0-33.4); MEAN CORPUSCULAR HGB CONC 32.7 g/dL (32.0-36.0); MEAN CORPUSCULAR VOLUME 88 fl (80-97); PLATELET COUNT 260 10^3/uL (150-450); RED BLOOD COUNT 3.41 10^6/uL (3.72-5.28); RED CELL DISTRIBUTION WIDTH 14.3 % (11.5-14.0)
[2018-05-23 06:43] LABS: ALANINE AMINOTRANSFERASE 105 U/L (9-52); ALBUMIN 3.2 g/dL (3.5-5.0); ALKALINE PHOSPHATASE 140 U/L (38-126); ANION GAP 15 (5-19); ASPARTATE AMINO TRANSFERASE 57 U/L (14-36); BILIRUBIN,DIRECT 0.4 mg/dL (0.0-0.4); BILIRUBIN,TOTAL 0.4 mg/dL (0.2-1.3); BLOOD UREA NITROGEN 82 mg/dL (7-20); CARBON DIOXIDE 21 mmol/L (22-30); CHLORIDE 104 mmol/L (98-107); GLUCOSE 109 mg/dL (75-110); POTASSIUM 4.7 mmol/L (3.6-5.0); SODIUM 139.7 mmol/L (137-145); TOTAL PROTEIN 6.5 g/dL (6.3-8.2)
--- NOTE | 2018-05-23 09:37 | ST Inp Modified Barium Swallow ---
Medical Diagnosis - Medical Diagnoses Medical Diagnosis Description & ICD-10 Code(s): acute on chronic renal failure, dysphagia ST [place] [facility] [place] - General Date: 05/23/18 Date of Onset: 05/23/18 - unsure of onset date - History History Obtained From: Other - EMR -: Medical - per EMR: patient admitted with altered mental status, has had frequent admissions since March of this year. Prior medical history includes past recent CVA, PEG tube dependent, bilateral amputee lower extremeties, chronic kidney disease stage 5, diabetes, hypertension, peripheral vascular disease, chronic right side weakness. Coconut and seafood allergy. Medications: Medications Reviewed Allergies: Refer to medical record - Subjective Current Nutritional Means: PEG Current PO Diet: N/A (NPO) Pain: Patient reports, 2/5 - did not quantify pain, but expressed pain in backside when positioned upright for procedure. - Objective Assessment: Upright, Left Lateral - Food Trials Food Trials Used: Thin liquids, Pureed The Patient: Required Assist, via cup, via spoon - Assessment Labial Function: Impaired - right side loss of liquid Dentition: Edentulous - Pharyngeal Stage Initiation of Pharyngeal Stage: Delayed - up to a 4 second delay, at level of pyriform sinus Decreased Laryngeal Elevation: No Reduced Velo-Pharyngeal Closure: no Reduced Pressure Generation: Yes - mild Reduced Tongue Base Retraction: No Pre-Swallowing Pooling in Valleculae: Moderate Pre-Swallowing Pooling in Pyriforms: Moderate Reduced Thyro-Hyiod Approximation: No Reduced Epiglottic Excursion: No Reduced Pharyngeal Peristalsis: No Multiple Swallows With: Cleared w/ Dry Swallow Post Swallow Residuals in Valleculae: Mild Post Swallow Residuals in Pyriforms: Mild - Impression/Summary Laryngeal Penetration: Yes, during swallow - with thin liquids Tracheal Aspiration: no - none observed on this study Patient Presents With: Pharyngeal stage dysph., Mild-Moderate Risk of Aspiration: Mild Risk Due To: When positioned upright, and with max assist to feed, patient with mild risk of aspiration. However, due to difficulty positioning patient and confusion level of patient, risk of aspiration may increase in less controlled and structured settings. - Recommendations NPO: therapeutic trials - pleasure feeds, free water - candidate for free water protocol Solid Diet Recommendations: Pureed Liquid Diet Recommendations: Thin Strict Aspitarion Precautions: Yes Dysphagia Therapy with MEDIA SERVICES SPECIALIST: No Recommended Techniques: Fully Upright During Meal, Small Bites and Sips Supervision: requires assistance Other Recommendations: Recommend pleasure feeds of puree solids and cup sips of thin liquid, only when patient is fully upright. Will likely require PEG feeds to maintain nutrition and hydration. - Time Total Time: 20 Total Timed Minutes: 20
[2018-05-23] MEDS: FONDAPARINUX SODIUM INJ 2.5 MG/0.5 ML DISP.SYRIN SUBCUT SCH (10:23)
[2018-05-23] MEDS: CLONIDINE HCL 0.1 MG TABLET PEG SCH (10:26)
[2018-05-23] MEDS: ASPIRIN 81 MG TABLET, CHEWABLE PEG SCH (10:26)
[2018-05-23] MEDS: DOCUSATE SODIUM 100 MG/10 ML UDC PEG SCH (10:26)
[2018-05-23] MEDS: CEFTRIAXONE 1 GM/D5W RTU 1 GM/50 ML RTUPB IV SCH (10:27)
[2018-05-23] MEDS: GABAPENTIN 100 MG CAPSULE PEG SCH (10:27)
[2018-05-23] MEDS: METOPROLOL TARTRATE 25 MG TABLET PEG SCH (10:27)
[2018-05-23] MEDS: CLOPIDOGREL BISULFATE 75 MG TABLET PEG SCH (10:27)
[2018-05-23] MEDS: CETIRIZINE 5 MG TABLET PO SCH (10:27)
--- NOTE | 2018-05-23 11:55 | RADIOLOGY REPORT (SQ) ---
EXAM DESCRIPTION: MIRYAM SWALLOW COMPLETED DATE/TIME: 05/23/2018 9:32 am REASON FOR STUDY: Dysphagia, aspiration COMPARISON: None. TECHNIQUE: Videofluoroscopic swallowing examination was performed in conjunction with speech patholo gy. Videofluoroscopic imaging was obtained and reviewed and these are the findings: RADIATION DOSE: Fluoro time 2.1 minutes 1 images saved to PACS. LIMITATIONS: None FINDINGS: The patient was brought into the fluoro room and placed upright on a modified barium swall ow chair. The patient was then given multiple consistencies mixed with barium to swallow under live fluoroscopic video guidance. According to the Speech Pathologist there was penetration seen with thi n barium. All other consistencies were swallowed without incident. No aspiration identified. Please refer to the speech pathology report for further details. IMPRESSION: LARYNGEAL PENETRATION WITHOUT ASPIRATION SEEN WITH THIN BARIUM. PLEASE SEE SPEECH PATHOL OGIST REPORT FOR OTHER FINDINGS AND RECOMMENDATIONS. COMMENT: NONE Quality ID [id number]: Final reports for procedures using fluoroscopy that document radiation exposure pablito erica, or exposure time and number of fluorographic images (if radiation exposure indices are not avail able) TECHNICAL DOCUMENTATION: JOB ID: [id number] [employer]- All Rights Reserved Reading location - IP/workstation name: [email or web address]
--- NOTE | 2018-05-23 15:10 | PDOC DISCHARGE SUMMARY ---
Addendum entered and electronically signed by INDRA CLANCY NP-C 06/06/18 15:17: Provider Note Provider Note: Addendum of diagnosis #6) UTI The patient presented to the emergency department with catheter associated urinary tract infection; present on arrival. Urinalysis positive for UTI. Urine culture grew E. coli; likely chronic colonization. However, the patient was symptomatic with suprapubic abdominal pain and had nitrates in urinalysis. Carrillo catheter was exchanged and she received a full course of IV Rocephin. Addendum entered and electronically signed by INDRA CLANCY NP-C 06/05/18 17:28: Provider Note Provider Note: (7) stage II decubitus ulcer Stable. The patient was admitted with a stage II decubitus ulcer to her sacrum, chronic and present on arrival. Nursing was asked to reposition and turn patient every 2 hours and as needed to offload. Meticulous hygiene. Allevyn dressing. Original Note: General - Admit/Disc Date/PCP Admission Date/Primary Care Provider: 05/19/18 04:07 SHELBY RAYA MD Discharge Date: 05/23/18 - Discharge Diagnosis (1) Acute on chronic renal failure Is this a current diagnosis for this admission?: Yes Summary: Acute exacerbation has resolved; patient is now at her baseline renal function. Cr 3.24-> 3.19-> 2.67-> 2.41-> 2.12. The patient is admitted with acute on chronic renal failure. Baseline creatinine of 2.2. Hyperkalemia has resolved. Likely secondary to dehydration. The patient was admitted to the medical floor and monitored on continuous cardiac telemetry. She was provided gentle IV fluids with resumption of her tube feeds with free water flushes. Her strict I&Os were monitored carefully in order to adjust her total daily water intake. IV fluids were gradually decreased as tube feeding and flushes were increased. The registered dietitian was consulted to assist with adjustments. At discharge they recommended the patient resume Nepro at 30 mL's per hour with water flush 75 mL's every 2 hours for a total 1400 mL's free water daily. Dr. Sandy was consulted; appreciate her evaluation recommendations. Patient should follow-up with her in the office as scheduled. At time of discharge, the patient has returned to her baseline mental and functional status. She is in no acute distress, maintaining oxygen saturations while on supplemental oxygen at 2 L/min, and tolerating her goal feed and water rates. She is discharged to home in the care of her family members with home health nursing, physical therapy, occupational therapy, speech therapy, and aide services. She is directed follow-up with her primary care provider within 1 week. She is advised to follow-up with Dr. Sandy as scheduled. Recommend returning to the emergency department as needed for concerning symptoms. (2) Diabetes Is this a current diagnosis for this admission?: Yes Summary: The patient did not require insulin coverage while on tube feedings. Recommend continued once daily glucose monitoring at home and reporting any upward trends to primary care provider at routine follow-up appointments. (3) Hyperkalemia Is this a current diagnosis for this admission?: Yes Summary: Resolved. Secondary to acute on chronic kidney disease. (4) Acute encephalopathy Is this a current diagnosis for this admission?: Yes Summary: Resolved; now at baseline. Likely secondary to hypoxia; possibly further complicated by narcotic pain medications. The patient is prescribed Butrans patch and as needed oxycodone for her chronic pain. She did not require opiate medications for management of her discomfort while admitted. Strongly encourage discussing reduce dose opiate medications at follow-up with PCP. (5) Acute respiratory failure with hypoxia Is this a current diagnosis for this admission?: Yes Summary: Resolved; now maintaining oxygen saturations on room air when awake. She desats while sleeping. Unclear etiology; though I have a high suspicion for DAKOTAH as the patient's son reports that her respiratory difficulty always occurs at night while sleeping. She does have an outpatient sleep study scheduled by her PCP. Chest x-ray and EKG are benign. There is no evidence of pneumonia or COPD exacerbation at this time. Possibly related to narcotic medications; patient utilizes Butrans patch and oxycodone as needed at home (has not received narcotics while here). Recommend weaning narcotic medications as able. Overnight pulse oximetry study did show desaturation events below 89% for more than 5 minutes. Will request home oxygen for use while sleeping. (6) UTI (urinary tract infection) Is this a current diagnosis for this admission?: Yes Summary: Urinalysis is positive for UTI. Urine culture demonstrates carlton sensitive e. coli. She received a full course of Rocephin; no further antibiotic therapies are warranted. Advise urology follow-up and consideration of straight caths over Carrillo catheter for management of neurogenic bladder to reduce future urinary tract infection risk. - Additional Information Resuscitation Status: Full Code Discharge Diet: Tube Feeding (Comments) - Nepro @ 30 mls/hr w/ 75 ml water flush every 2 hours Discharge Activity: Activity As Tolerated Home Medications: Amlodipine Besylate [Norvasc 5 mg Tablet] 5 mg PO DAILY 03/28/18 Insulin Aspart [Novolog Flexpen] 0 unit SUBCUT .SLD SCALE PRN 03/28/18 Buprenorphine [Butrans] 1 patch TD Q7D 04/18/18 Clonidine HCl [Catapres 0.1 mg Tablet] 0.1 mg PO Q12 04/18/18 Metoprolol Tartrate [Lopressor 25 mg Tablet] 12.5 mg PO Q12 04/18/18 Naloxone HCl [Narcan] 1 spray NASL DAILY PRN 04/18/18 Nystatin [Mycostatin Topical Powder 15 gm] 1 applic TP Q8 #1 bottle 04/22/18 Nystatin/Triamcin [Mycolog-II Cream 15 gm] 1 applic TP Q8 #1 tube 04/22/18 Aspirin [Lo-Dose Aspirin EC] 81 mg PO BID 05/19/18 Atorvastatin Calcium [Lipitor 40 mg Tablet] 40 mg PO QHS 05/19/18 Clopidogrel Bisulfate [Plavix 75 mg Tablet] 75 mg PO DAILY 05/19/18 Dextrose [Glucose] 1 each PO PRN PRN 05/19/18 Gabapentin [Neurontin 100 mg Capsule] 100 mg PO QHS 05/19/18 Ondansetron HCl [Zofran 4 mg Tablet] 1 tab PO Q4H PRN 05/19/18 Acetaminophen [Tylenol Soln 325 mg/10.15 ml Udcup] 650 mg PEG Q4HP PRN udc 05/23/18 Cetirizine HCl [Zyrtec 5 mg Tablet] 5 mg PO DAILY tablet 05/23/18 Docusate Sodium [Colace Udc 100 mg/10 ml Oral Soln] 100 mg PEG BID udc 05/23/18 History of Present Illness History of Present Illness: The patient is a 68-year-old female with a past medical history of hypertension, PVD, COPD, DM 2,CKD 4, bilateral BKA, CVA, and PEG tube who presented via EMS for hypoxia; found to be in the 70s on room air, altered mental status and found to have acute respiratory failure with hypoxia, UTI, and dehydration evidenced by acute on chronic kidney failure, and hyperkalemia. This is the patient's third admission since March 2018 for similar findings. Physical Exam Vital Signs: Temp Pulse Resp BP Pulse Ox 98.5 F 71 16 205/75 H 94 05/23/18 08:00 05/23/18 10:31 05/23/18 10:31 05/23/18 08:00 05/23/18 10:31 Pulse Oximeter Nocturnal Start: 05/20/18 17:05 Freq: RTQ4 Status: Complete Protocol: Document 05/21/18 07:10 CMI (Rec: 05/21/18 07:10 CMI [id number]) Nocturnal Pulse Oximetry Equipment Usage Equipment Discontinued Continuous SpO2 Machine # 6 Intake & Output 05/22/18 05/23/18 05/24/18 06:59 06:59 06:59 Intake Total 2 1414 50 Output Total 1400 1350 300 Balance 622 64 -250 Weight 67.9 kg 67.9 kg General appearance: PRESENT: no acute distress, disheveled, obese Head exam: PRESENT: atraumatic, normocephalic Eye exam: PRESENT: conjunctiva pink, EOMI, PERRLA Mouth exam: PRESENT: moist, tongue midline Teeth exam: PRESENT: poor dentation Respiratory exam: PRESENT: clear to auscultation nicole, decreased breath sounds, symmetrical, unlabored, other - supplemental oxygen via NC. ABSENT: rales, rhonchi, wheezes Cardiovascular exam: PRESENT: RRR. ABSENT: diastolic murmur, rubs, systolic murmur Vascular exam: PRESENT: normal capillary refill GI/Abdominal exam: PRESENT: normal bowel sounds, soft, other - G tube. ABSENT: distended, guarding, mass, organolmegaly, rebound, tenderness Rectal exam: PRESENT: deferred Gentrourinary exam: PRESENT: indwelling catheter Extremities exam: PRESENT: full ROM, other - Right AKA, left BKA. ABSENT: calf tenderness, clubbing, pedal edema Neurological exam: PRESENT: alert, awake, oriented to person, oriented to place, oriented to situation, CN II-XII grossly intact, other - Intermittently confused/forgetful. ABSENT: motor sensory deficit Psychiatric exam: PRESENT: anxious, normal mood Skin exam: PRESENT: dry, warm, other - Stage II decubitus ulcer. ABSENT: cyanosis, rash Results Laboratory Results: 05/23/18 05:25 05/23/18 05:25 05/23/18 05/23/18 05:25 05:25 WBC 8.0 RBC 3.41 L Hgb 9.8 L Hct 30.0 L MCV 88 MCH 28.8 MCHC 32.7 RDW 14.3 H Plt Count 260 Sodium 139.7 Potassium 4.7 Chloride 104 Carbon Dioxide 21 L Anion Gap 15 BUN 82 H Creatinine 2.12 H Est GFR ( Amer) 28 L Est GFR (Non-Af Amer) 23 L Glucose 109 Calcium 10.0 Total Bilirubin 0.4 AST 57 H ALT 105 H Alkaline Phosphatase 140 H Total Protein 6.5 Albumin 3.2 L 05/18/18 20:14 Blood Blood Culture - Final Staphylococcus Hominis 05/18/18 05/18/18 05/18/18 21:08 21:08 21:08 Creatine Kinase 25 L CK-MB (CK-2) 0.93 Troponin I < 0.012 NT-Pro-B Natriuret Pep 4430 H Impressions: Chest X-Ray 05/18/18 19:47 IMPRESSION: Clear lungs. Qualifiers - * PATIENT BEING DISCHARGED WITH ANY OF THE FOLLOWING DIAGNOSIS: No Plan Discharge Plan: Follow up with primary care provider within 1 week. Recommend outpatient Palliative Care/Advance Care Planning consultation. Resume tube feedings as follows: Nepro continuous feedings at 30 ml/hr with 75 ml Water flush every 2 hours. This provides a total of 1,400 ml of free water daily [520 ml from the Nepro [720 total volume] and 900 ml from flushes). Recommend repeat chemistry in 3-5 days to assess electrolytes and kidney function. Follow up with Dr. Sandy as scheduled. Recommend urology follow-up to evaluate chronic Acrrillo catheter and recurrent U TIs. Time Spent: Greater than 30 Minutes
[2018-05-23 16:04] VITALS: BP 168/72
== END 2018-05-23 16:09 | disposition home health service (06) | DRG 698 ==
LOC: ER 19:19 → EH 05-19 04:07 → 4S 05-19 06:30
PROVIDERS: ADMIT Internal Medicine; ATTEND Internal Medicine
PROC: 3E0F73Z Introduction of Anti-inflammatory into Respiratory Tract, Via Natural or Artificial Opening (ICD-10-PCS; principal; 2018-05-19)
DX: T83.511A Infection and inflammatory reaction due to indwelling urethral catheter, initial encounter (principal); J96.01 Acute respiratory failure with hypoxia; N17.9 Acute kidney failure, unspecified; G93.40 Encephalopathy, unspecified; N18.4 Chronic kidney disease, stage 4 (severe); N25.81 Secondary hyperparathyroidism of renal origin; N39.0 Urinary tract infection, site not specified; E87.5 Hyperkalemia; E86.0 Dehydration; E11.22 Type 2 diabetes mellitus with diabetic chronic kidney disease; B96.20 Unspecified Escherichia coli [E. coli] as the cause of diseases classified elsewhere; I12.9 Hypertensive chronic kidney disease with stage 1 through stage 4 chronic kidney disease, or unspecified chronic kidney disease; L89.152 Pressure ulcer of sacral region, stage 2; E11.51 Type 2 diabetes mellitus with diabetic peripheral angiopathy without gangrene; D63.1 Anemia in chronic kidney disease; E78.5 Hyperlipidemia, unspecified; E11.43 Type 2 diabetes mellitus with diabetic autonomic (poly)neuropathy; E11.21 Type 2 diabetes mellitus with diabetic nephropathy; E83.39 Other disorders of phosphorus metabolism; F32.9 Major depressive disorder, single episode, unspecified; E66.9 Obesity, unspecified; J44.9 Chronic obstructive pulmonary disease, unspecified; Y84.6 Urinary catheterization as the cause of abnormal reaction of the patient, or of later complication, without mention of misadventure at the time of the procedure; Z89.512 Acquired absence of left leg below knee; Z86.73 Personal history of transient ischemic attack (TIA), and cerebral infarction without residual deficits; Z98.42 Cataract extraction status, left eye; Z98.41 Cataract extraction status, right eye; Z99.81 Dependence on supplemental oxygen; Z79.899 Other long term (current) drug therapy; Z79.1 Long term (current) use of non-steroidal anti-inflammatories (NSAID); Z79.4 Long term (current) use of insulin; Z79.82 Long term (current) use of aspirin; Z90.710 Acquired absence of both cervix and uterus; Z89.611 Acquired absence of right leg above knee; Z87.891 Personal history of nicotine dependence; Z79.02 Long term (current) use of antithrombotics/antiplatelets; Z88.6 Allergy status to analgesic agent; Z91.040 Latex allergy status; Z88.0 Allergy status to penicillin; Z91.013 Allergy to seafood; Z88.8 Allergy status to other drugs, medicaments and biological substances; Z91.018 Allergy to other foods; Z93.1 Gastrostomy status; Z84.1 Family history of disorders of kidney and ureter; Z80.6 Family history of leukemia; Z82.3 Family history of stroke
CPT/HCPCS: 36415; 71045; 74230; 80048; 80053; 81001; 82550; 82553; 82803; 82962; 83605; 83690; 83735; 83880; 84100; 84484; 85025; 85027; 85610; 85730; 87040; 87077; 87086; 87088; 87186; 93005; 93010; 94762; 96365; 96366; 96375; 99285; J0610; J0696; J1652; J1815; J3490; J7030

== ENCOUNTER 2018-06-28 11:59 | Inpatient (IN) | payer MEDICARE, OTHER ==
[2018-06-28] MEDS ORDERED: NORMAL SALINE 1000 ML 1,000 ML IV ONE (12:36)
[2018-06-28 14:43] LABS: AMORPHOUS SEDIMENT,URINE TRACE /HPF; APPEARANCE,URINE CLOUDY; BILIRUBIN,URINE NEGATIVE (NEGATIVE); COLOR,URINE YELLOW; GLUCOSE, URINE 150 mg/dL (NEGATIVE); KETONES,URINE NEGATIVE (NEGATIVE); LEUKOCYTE ESTERASE,URINE LARGE (NEGATIVE); NITRITE,URINE NEGATIVE (NEGATIVE); PROTEIN,URINE 100 mg/dL (NEGATIVE); URINE SPECIFIC GRAVITY 1.012; UROBILINOGEN,URINE NEGATIVE mg/dL (<2.0)
--- NOTE | 2018-06-28 15:33 | RADIOLOGY REPORT (SQ) ---
EXAM DESCRIPTION: CHEST SINGLE VIEW COMPLETED DATE/TIME: 06/28/2018 3:14 pm REASON FOR STUDY: Congested cough COMPARISON: 05/18/2018 EXAM PARAMETERS: NUMBER OF VIEWS: One view. TECHNIQUE: Single frontal radiographic view of the chest acquired. RADIATION DOSE: NA LIMITATIONS: None. FINDINGS: LUNGS AND PLEURA: Low lung volumes. No opacities, masses or pneumothorax. No pleural eff usion. MEDIASTINUM AND HILAR STRUCTURES: No masses. Contour normal. HEART AND VASCULAR STRUCTURES: Slight accentuation of the cardiac silhouette maybe related patient p ositioning. Normal vasculature. BONES: No acute findings. HARDWARE: None in the chest. OTHER: Small hiatal hernia. Stable calcified nodule overlying the region of the left thyroid gland. IMPRESSION: 1. Low lung volumes limits examination. No acute pulmonary findings. TECHNICAL DOCUMENTATION: JOB ID: [id number] [employer]- All Rights Reserved Reading location - IP/workstation name: [email or web address]
[2018-06-28 15:50] LABS: HEMATOCRIT 29.6 % (36.0-47.0); HEMOGLOBIN 9.7 g/dL (12.0-15.5); MEAN CORPUSCULAR HEMOGLOBIN 27.6 pg (27.0-33.4); MEAN CORPUSCULAR HGB CONC 32.9 g/dL (32.0-36.0); MEAN CORPUSCULAR VOLUME 84 fl (80-97); PLATELET COUNT 291 10^3/uL (150-450); RED BLOOD COUNT 3.53 10^6/uL (3.72-5.28); RED CELL DISTRIBUTION WIDTH 13.8 % (11.5-14.0)
--- NOTE | 2018-06-28 16:03 | ER Document Report ---
Entered by CELESTINE MONTGOMERY SCRIBE 06/28/18 1249 Acting as scribe for:SAIGE LEY MD ED General - General Chief Complaint: Altered Mental Status Stated Complaint: WEAKNESS Time Seen by Provider: 06/28/18 12:23 Primary Care Provider: SHELBY RAYA MD [Primary Care Provider] - Follow up as needed Mode of Arrival: Ambulatory Information source: Patient Notes: Patient is a 68 year old female presenting to the emergency department accompanied by son complaining of altered mental status onset 1 week ago. Son states for the last week, the patient has become very drowsy further stating she has become less talkative and less responsive. He reports multiple decubitus ulcers on her sacral region and right posterior thigh as well as an healing ulcer on her left stump. Son reports the patient has an appointment with wound care on the pertaining to the decubitus ulcers on her sacral region. I did see this patient here on 04/19/2018 when she came in for decreased mental status. She had an elevated PCO2 and was hypoventilating. Throughout the day her mental status improved to the point that she became wide awake and talking, and did recall seeing me earlier that morning. At the time it was felt that she may have had a TIA causing her symptoms. Given the way she presented today and the history from the son and EMS, I suspect these episodes of decreased mental status are probably due to too much narcotic dosing. She is on the Butrans patch by her son's history, and he supplements her pain control with oxycodone. TRAVEL OUTSIDE OF THE [place] IN LAST 30 DAYS: No - Related Data Allergies/Adverse Reactions: heparin Allergy (Intermediate, Verified 05/18/18 19:46) Hives latex [Latex] Allergy (Mild, Verified 05/18/18 19:46) RASH Penicillins Allergy (Mild, Verified 05/18/18 19:46) RASH, BREATHING DIFFICULTY coconut Allergy (Verified 05/18/18 19:46) codeine Allergy (Verified 05/18/18 19:46) seafood Allergy (Uncoded 05/18/18 19:46) Past Medical History - General Information source: Relative - Social History Smoking Status: Former Smoker Cigarette use (# per day): No Chew tobacco use (# tins/day): No Smoking Education Provided: No Frequency of alcohol use: None Family History: Reviewed & Not Pertinent, CAD, COPD - Past Medical History Cardiac Medical History: Reports: Hx Hypercholesterolemia, Hx Hypertension, Hx Peripheral Vascular Disease Pulmonary Medical History: Reports: Hx COPD Neurological Medical History: Reports: Hx Cerebrovascular Accident - 2 years ago and then couple of weeks ago. Chronic right sided weakness. Endocrine Medical History: Reports: Hx Diabetes Mellitus Type 2 Renal/ Medical History: Reports: Hx Renal Insufficiency Psychiatric Medical History: Reports: Hx Depression Past Surgical History: Reports: Hx Abdominal Surgery - Gastrostomy tube, Hx Hysterectomy, Hx Orthopedic Surgery - Left BKA, right AKA, Hx Vascular Surgery - Failed angioplasty and stenting into the lower extremities. Review of Systems - Review of Systems Constitutional: See HPI, Weakness EENT: No symptoms reported Cardiovascular: No symptoms reported Respiratory: No symptoms reported Gastrointestinal: No symptoms reported Genitourinary: No symptoms reported Female Genitourinary: No symptoms reported Musculoskeletal: No symptoms reported Skin: No symptoms reported Hematologic/Lymphatic: No symptoms reported Neurological/Psychological: No symptoms reported -: Yes All other systems reviewed and negative Physical Exam - Vital signs Vitals: Resp Pulse Ox 16 96 06/28/18 12:08 06/28/18 12:08 - Notes Notes: GENERAL: Alert, responds to noxious stimuli. Keeps head turned towards the left. HEAD: Normocephalic, atraumatic. EYES: Pupils equal, round, and reactive to light. Extraocular movements intact. ENT: Oral mucosa moist, tongue midline. NECK: Full range of motion. Supple. Trachea midline. LUNGS: Rhonchi. No respiratory distress. HEART: Regular rate and rhythm. Faint systolic murmur. ABDOMEN: Soft, non-tender. Non-distended. Bowel sounds present in all 4 quadrants. No guarding, rigidity, or rebound. EXTREMITIES: Moves all 4 extremities spontaneously. Right AKA, Left BKA. NEUROLOGICAL: Alert, responds to noxious stimuli. Keeps head turned towards the left. PSYCH: Normal affect, normal mood. SKIN: Warm, dry, normal turgor. Almost healed pressure ulcer on left stump. 2 pressure ulcers on right posterior thigh. Decubitus ulcers on sacral region. Course - Re-evaluation Re-evalutation: 06/28/18 18:28 At this time the patient is wide awake. She states she is not having any pain anywhere and does not feel bad. She does have a white count of 30,600 with a shift but no obvious source of infection to cause such a white blood cell count. Review of multiple visits does not show a prior leukemoid reaction but she has today. - Vital Signs Vital signs: Temp Pulse Resp BP Pulse Ox 99.7 F 20 153/69 H 99 06/28/18 13:09 06/28/18 14:01 06/28/18 14:01 06/28/18 14:01 - Laboratory Result Diagrams: 06/28/18 15:30 06/28/18 15:30 Laboratory results interpreted by me: 06/28/18 06/28/18 06/28/18 14:06 15:30 15:30 WBC 30.6 H* RBC 3.53 L Hgb 9.7 L Hct 29.6 L Seg Neuts % (Manual) 88 H Lymphocytes % (Manual) 4 L Abs Neuts (Manual) 26.9 H Abs Monocytes (Manual) 2.1 H Abs Basophils (Manual) 0.3 H Sodium 129.8 L Potassium 5.2 H Carbon Dioxide 20 L BUN 206 H Creatinine 2.54 H Est GFR ( Amer) 23 L Est GFR (Non-Af Amer) 19 L Glucose 206 H Magnesium 4.0 H AST 217 H ALT 422 H Alkaline Phosphatase 272 H Creatine Kinase < 20 L Albumin 3.4 L Urine Protein 100 H Urine Glucose (UA) 150 H Urine Blood SMALL H Ur Leukocyte Esterase LARGE H - Diagnostic Test Radiology reviewed: Image reviewed, Reports reviewed - Chest x-ray shows low lung volumes without any acute process. - EKG Interpretation by Me EKG shows normal: Sinus rhythm, Lynch, Intervals, QRS Complexes, ST-T Waves Rate: Normal - 70 Rhythm: NSR Lynch/QRS: Left axis deviation When compared to previous EKG there are: No significant change - Consults Dr. Neil Time consulted: 18:18 Consulted provider: will come to ER - Admit to telemetry. Will have Dr. Keith see the patient when he comes on duty. Critical Care Note - Critical Care Note Total time excluding time spent on procedures (mins): 35 Discharge - Discharge Clinical Impression: Narcotic induced mental alteration, Leukemoid reaction Altered mental status Qualifiers: Altered mental status type: unspecified Qualified Code(s): R41.82 - Altered mental status, unspecified Leukocytosis Qualifiers: Leukocytosis type: unspecified Qualified Code(s): D72.829 - Elevated white blood cell count, unspecified Condition: Stable Disposition: ADMITTED INPATIENT Admitting Provider: Jolynn (Hospitalist) Unit Admitted: Telemetry Referrals: SHELBY RAYA MD [Primary Care Provider] - Follow up as needed Scribe Attestation: 06/28/18 14:04 I personally performed the services described in the documentation, reviewed and edited the documentation which was dictated to the scribe in my presence, and it accurately records my words and actions. I personally performed the services described in the documentation, reviewed and edited the documentation which was dictated to the scribe in my presence, and it accurately records my words and actions.
[2018-06-28 16:06] LABS: ABSOLUTE LYMPHOCYTES# (MANUAL) 1.2 10^3/uL (0.5-4.7); ABSOLUTE MONOCYTES # (MANUAL) 2.1 10^3/uL (0.1-1.4); ABSOLUTE NEUTROPHILS# (MANUAL) 26.9 10^3/uL (1.7-8.2); BASOPHILS % (MANUAL) 1 % (0-2); EOSINOPHILS % (MANUAL) 0 % (0-6); LYMPHOCYTES % (MANUAL) 4 % (13-45); MONOCYTES % (MANUAL) 7 % (3-13); SEGMENTED NEUTROPHILS % (MAN) 88 % (42-78); TOTAL CELLS COUNTED 100
[2018-06-28 16:09] LABS: PLATELET COMMENT ADEQUATE; RBC MORPHOLOGY COMMENT NORMO-CYTIC/CHROMIC
[2018-06-28 16:13] LABS: WHITE BLOOD COUNT 30.6 10^3/uL (4.0-10.5)
[2018-06-28 16:27] LABS: ALANINE AMINOTRANSFERASE 422 U/L (9-52); ALBUMIN 3.4 g/dL (3.5-5.0); ALKALINE PHOSPHATASE 272 U/L (38-126); ANION GAP 12 (5-19); ASPARTATE AMINO TRANSFERASE 217 U/L (14-36); BILIRUBIN,DIRECT 0.4 mg/dL (0.0-0.4); BILIRUBIN,TOTAL 0.4 mg/dL (0.2-1.3); CALCIUM 9.3 mg/dL (8.4-10.2); CARBON DIOXIDE 20 mmol/L (22-30); CHLORIDE 98 mmol/L (98-107); GLUCOSE 206 mg/dL (75-110); POTASSIUM 5.2 mmol/L (3.6-5.0); SODIUM 129.8 mmol/L (137-145); TOTAL PROTEIN 7.3 g/dL (6.3-8.2)
[2018-06-28 16:34] LABS: BLOOD UREA NITROGEN 206 mg/dL (7-20); CREATINE KINASE < 20 U/L (30-135)
--- NOTE | 2018-06-28 17:16 | EKG REPORT ---
SEVERITY:- ABNORMAL ECG - SINUS RHYTHM BORDERLINE LEFT AXIS DEVIATION CONSIDER OLD INFERIOR PR. : Confirmed by: Baldomero Hollis MD 28-Jun-2018 17:15:38
[2018-06-28] MEDS ORDERED: CEFTRIAXONE 1 GM/D5W RTU 1 GM/50 ML RTUPB IV ONE (18:27)
[2018-06-28] MEDS ORDERED: ACETAMINOPHEN 325 MG TABLET JT PRN (19:41)
[2018-06-28] MEDS ORDERED: (PENDING PHARMACY ID) (Buprenorphine [Butrans] 1 PATCH) TD SCH (19:45)
[2018-06-28] MEDS ORDERED: NORMAL SALINE 1000 ML 1,000 ML IV SCH (19:45)
[2018-06-28] MEDS: IPRATROPIUM/ALBUTEROL 0.5-2.5 MG/3 ML AMPUL NEB SCH (20:19)
[2018-06-28 20:42] LABS: PHOSPHORUS 5.3 mg/dL (2.5-4.5)
[2018-06-28] MEDS ORDERED: HEPARIN SOD (PORCINE) 5,000 UNIT/ML 1 ML SYRINGE SUBCUT SCH (22:00)
[2018-06-28] MEDS: CLONIDINE HCL 0.1 MG TABLET PO SCH (23:05)
[2018-06-28] MEDS: ATORVASTATIN CALCIUM 40 MG TABLET PO SCH (23:05)
[2018-06-28] MEDS: METOPROLOL TARTRATE 25 MG TABLET PO SCH (23:05)
[2018-06-28] MEDS: GABAPENTIN 100 MG CAPSULE PO SCH (23:05)
[2018-06-28] MEDS: CEFTAZIDIME PENTAHYDRATE 2 GM in DEXTROSE 5%-WATER 100 ML IV SCH (23:07)
[2018-06-28] MEDS: NORMAL SALINE 1000 ML 1,000 ML IV PRN (23:30)
[2018-06-28] MEDS: NYSTATIN/TRIAMCIN CREAM 15 GM TP SCH (23:49)
[2018-06-28] MEDS: AMLODIPINE BESYLATE 5 MG TABLET PO SCH (23:49)
[2018-06-29] MEDS: IPRATROPIUM/ALBUTEROL 0.5-2.5 MG/3 ML AMPUL NEB SCH ×4 (01:18→23:59)
[2018-06-29] MEDS: NORMAL SALINE 1000 ML 1,000 ML IV PRN ×2 (03:35→10:20)
[2018-06-29 04:38] LABS: HEMATOCRIT 24.8 % (36.0-47.0); HEMOGLOBIN 8.2 g/dL (12.0-15.5); MEAN CORPUSCULAR HEMOGLOBIN 27.8 pg (27.0-33.4); MEAN CORPUSCULAR HGB CONC 33.2 g/dL (32.0-36.0); MEAN CORPUSCULAR VOLUME 84 fl (80-97); PLATELET COUNT 219 10^3/uL (150-450); RED BLOOD COUNT 2.96 10^6/uL (3.72-5.28); WHITE BLOOD COUNT 25.2 10^3/uL (4.0-10.5)
--- NOTE | 2018-06-29 04:49 | PDOC H&P ---
History of Present Illness Admission Date/PCP: 06/28/18 18:36 SHELBY RAYA MD Patient complains of: Lethargy History of Present Illness: GEORGE LAUGHLIN is a 68 year old female with a past medical history of CVA with immobility, peripheral vascular disease status post bilateral lower extremity amputation, chronic kidney disease, diabetes, chronic UTI and stage III sacral decubiti. She is brought to the emergency room for altered mental status found to have leukocytosis, acute on chronic renal failure, pyuria, 4 x 4 centimeter stage IV sacral decubiti, 2 x 3 cm stage II decubiti at the gluteal fold bilaterally. Patient admits to pain but is unable to localize. She received empiric antibiotic and refer to the hospitalist for admission. Past Medical History Cardiac Medical History: Reports: Hyperlipidema, Hypertension, Peripheral Vascular Disease Denies: Atrial Fibrillation, Congestive Heart Failure, Myocardial Infarction, Pulmonary Embolism Pulmonary Medical History: Reports: Chronic Obstructive Pulmonary Disease (COPD) Denies: Asthma Neurological Medical History: Denies: Seizures Endocrine Medical History: Reports: Diabetes Mellitus Type 2 GI Medical History: Denies: Hepatitis, Hiatal Hernia Psychiatric Medical History: Reports: Depression Hematology: Denies: Anemia, Sickle Cell Disease Past Surgical History Past Surgical History: Reports: Hysterectomy, Orthopedic Surgery - Left BKA, right AKA, Vascular Surgery - Failed angioplasty and stenting into the lower extremities. Denies: Amputation, Mastectomy, Pacemaker Social History Information Source: Patient Lives with: Family Smoking Status: Former Smoker Frequency of Alcohol Use: None Hx Recreational Drug Use: No Drugs: None Hx Prescription Drug Abuse: No - Advance Directive Resuscitation Status: Full Code Family History Family History: CAD, COPD Parental Family History Reviewed: Yes Children Family History Reviewed: Yes Sibling(s) Family History Reviewed.: Yes Medication/Allergy Home Medications: Amlodipine Besylate [Norvasc 5 mg Tablet] 10 mg PO DAILY 03/28/18 Buprenorphine [Butrans] 1 patch TD FR@1000 04/18/18 Metoprolol Tartrate [Lopressor 25 mg Tablet] 25 mg PO Q12 04/18/18 Naloxone HCl [Narcan] 1 spray NASL DAILY PRN 04/18/18 Atorvastatin Calcium [Lipitor 40 mg Tablet] 40 mg PO QHS 05/19/18 Clopidogrel Bisulfate [Plavix 75 mg Tablet] 75 mg PO DAILY 05/19/18 Dextrose [Glucose] 1 each PO PRN PRN 05/19/18 Gabapentin [Neurontin 100 mg Capsule] 100 mg PO QHS 05/19/18 Aspirin [Ecotrin 81 mg EC Tablet] 81 mg PO Q12 06/28/18 Cholecalciferol (Vitamin D3) [Vitamin D3 5000 unit Capsule] 5,000 unit PO DAILY 06/28/18 Clonidine [Catapres-Tts 3 (0.3 mg/24 Hr) Transderm Patch] 1 patch TD FR@1000 06/28/18 Oxycodone HCl [Oxy-Ir 5 mg Tablet] 7.5 mg PO Q5HP PRN MDD 37.5 MG 06/28/18 Polyethylene Glycol 3350 [Miralax Powder 17 gm/Packet] 1 packet PO Q2D 06/28/18 Allergies/Adverse Reactions: heparin Allergy (Intermediate, Verified 05/18/18 19:46) Hives latex [Latex] Allergy (Mild, Verified 05/18/18 19:46) RASH Penicillins Allergy (Mild, Verified 05/18/18 19:46) RASH, BREATHING DIFFICULTY coconut Allergy (Verified 05/18/18 19:46) codeine Allergy (Verified 05/18/18 19:46) seafood Allergy (Uncoded 05/18/18 19:46) Review of Systems ROS unobtainable: Due to mental status Physical Exam Vital Signs: Temp Pulse Resp BP Pulse Ox 97.9 F 19 107/53 L 99 06/29/18 03:01 06/29/18 03:01 06/29/18 03:01 06/29/18 03:01 Intake & Output 06/27/18 06/28/18 06/29/18 11:59 11:59 11:59 Intake Total 2150 Output Total 500 Balance 1650 Weight 60.555 kg General appearance: PRESENT: cooperative, mild distress, well-developed. AB SENT: disheveled Head exam: PRESENT: atraumatic, normocephalic Eye exam: PRESENT: conjunctiva pink, EOMI, PERRLA. ABSENT: scleral icterus Ear exam: PRESENT: normal external ear exam Mouth exam: PRESENT: moist, tongue midline Neck exam: ABSENT: carotid bruit, JVD, lymphadenopathy, thyromegaly Respiratory exam: PRESENT: crackles. ABSENT: rales, rhonchi, wheezes Cardiovascular exam: PRESENT: RRR. ABSENT: diastolic murmur, rubs, systolic murmur Pulses: PRESENT: normal dorsalis pedis pul Vascular exam: PRESENT: normal capillary refill GI/Abdominal exam: PRESENT: normal bowel sounds, soft. ABSENT: distended, guarding, mass, organolmegaly, rebound, tenderness Rectal exam: PRESENT: deferred Extremities exam: PRESENT: full ROM. ABSENT: calf tenderness, clubbing, pedal edema Neurological exam: PRESENT: alert, awake, oriented to person, oriented to place, CN II-XII grossly intact. ABSENT: motor sensory deficit Psychiatric exam: PRESENT: appropriate affect, normal mood. ABSENT: homicidal ideation, suicidal ideation Skin exam: PRESENT: erythema, other - 4 x 4 centimeter stage IV sacral decubiti, 2 x 3 cm stage II decubiti at the gluteal fold bilaterally. ABSENT: abrasion, cyanosis, dry Results Laboratory Results: 06/28/18 06/28/18 06/28/18 14:06 15:30 15:30 WBC 30.6 H* RBC 3.53 L Hgb 9.7 L Hct 29.6 L MCV 84 MCH 27.6 MCHC 32.9 RDW 13.8 Plt Count 291 Seg Neutrophils % Not Reportable Lymphocytes % Not Reportable Monocytes % Not Reportable Eosinophils % Not Reportable Basophils % Not Reportable Absolute Neutrophils Not Reportable Absolute Lymphocytes Not Reportable Absolute Monocytes Not Reportable Absolute Eosinophils Not Reportable Absolute Basophils Not Reportable Sodium 129.8 L Potassium 5.2 H Chloride 98 Carbon Dioxide 20 L Anion Gap 12 BUN 206 H Creatinine 2.54 H Est GFR ( Amer) 23 L Est GFR (Non-Af Amer) 19 L Glucose 206 H Lactic Acid Calcium 9.3 Phosphorus Magnesium 4.0 H Total Bilirubin 0.4 AST 217 H ALT 422 H Alkaline Phosphatase 272 H Total Protein 7.3 Albumin 3.4 L Prealbumin Urine Color YELLOW Urine Appearance CLOUDY Urine pH 5.0 Ur Specific [place] 1.012 Urine Protein 100 H Urine Glucose (UA) 150 H Urine Ketones NEGATIVE Urine Blood SMALL H Urine Nitrite NEGATIVE Ur Leukocyte Esterase LARGE H Urine WBC (Auto) 99 Urine RBC (Auto) 5 06/28/18 06/28/18 06/28/18 15:30 20:10 20:10 WBC RBC Hgb Hct MCV MCH MCHC RDW Plt Count Seg Neutrophils % Lymphocytes % Monocytes % Eosinophils % Basophils % Absolute Neutrophils Absolute Lymphocytes Absolute Monocytes Absolute Eosinophils Absolute Basophils Sodium Potassium Chloride Carbon Dioxide Anion Gap BUN Creatinine Est GFR ( Amer) Est GFR (Non-Af Amer) Glucose Lactic Acid 1.0 Calcium Phosphorus 5.3 H Magnesium 4.0 H Total Bilirubin AST ALT Alkaline Phosphatase Total Protein Albumin Prealbumin 15.3 L Urine Color Urine Appearance Urine pH Ur Specific [place] Urine Protein Urine Glucose (UA) Urine Ketones Urine Blood Urine Nitrite Ur Leukocyte Esterase Urine WBC (Auto) Urine RBC (Auto) 06/28/18 06/28/18 15:30 15:30 Creatine Kinase < 20 L Troponin I < 0.012 Impressions: Chest X-Ray 06/28/18 14:56 IMPRESSION: 1. Low lung volumes limits examination. No acute pulmonary findings. Assessment and Plan - Diagnosis (1) CKD (chronic kidney disease) stage 4, GFR 15-29 ml/min Is this a current diagnosis for this admission?: Yes Plan: With uremia, IV fluid challenge, follow-up chemistry (2) Sacral decubitus ulcer Qualifiers: Pressure injury stage: stage 3 Qualified Code(s): L89.153 - Pressure ulcer of sacral region, stage 3 Is this a current diagnosis for this admission?: Yes Plan: Wound management, specialty bed (3) UTI (urinary tract infection) Qualifiers: Urinary tract infection type: acute cystitis Hematuria presence: with hematuria Qualified Code(s): N30.01 - Acute cystitis with hematuria Is this a current diagnosis for this admission?: Yes Plan: Recent urine culture grew E. coli sensitive to ceftazidime. Initiated. Follow- up blood and urine culture (4) Altered mental status Qualifiers: Altered mental status type: unspecified Qualified Code(s): R41.82 - Altered mental status, unspecified Is this a current diagnosis for this admission?: Yes Plan: Encephalopathy likely secondary to acute illness., Monitor for opiate wi thdrawal as to pain patches were removed by EMS. - Time Time Spent with patient: 35 or more minutes - Inpatient Certification Medical Necessity: Need Close Monitoring Due to Risk of Patient Decompensation
[2018-06-29 04:59] LABS: ABSOLUTE LYMPHOCYTES# (MANUAL) 2.8 10^3/uL (0.5-4.7); ABSOLUTE MONOCYTES # (MANUAL) 0.5 10^3/uL (0.1-1.4); ABSOLUTE NEUTROPHILS# (MANUAL) 21.9 10^3/uL (1.7-8.2); BASOPHILS % (MANUAL) 0 % (0-2); EOSINOPHILS % (MANUAL) 0 % (0-6); LYMPHOCYTES % (MANUAL) 11 % (13-45); MONOCYTES % (MANUAL) 2 % (3-13); SEGMENTED NEUTROPHILS % (MAN) 87 % (42-78); TOTAL CELLS COUNTED 100
[2018-06-29 05:00] LABS: PLATELET COMMENT ADEQUATE; RBC MORPHOLOGY COMMENT NORMO-CYTIC/CHROMIC
[2018-06-29 05:03] LABS: ANION GAP 14 (5-19); CALCIUM 8.8 mg/dL (8.4-10.2); CARBON DIOXIDE 19 mmol/L (22-30); CHLORIDE 99 mmol/L (98-107); GLUCOSE 137 mg/dL (75-110); POTASSIUM 4.8 mmol/L (3.6-5.0)
[2018-06-29 05:20] LABS: BLOOD UREA NITROGEN 192 mg/dL (7-20)
[2018-06-29] MEDS ORDERED: NYSTATIN/TRIAMCIN CREAM 15 GM ONE (05:50)
[2018-06-29] MEDS ORDERED: CEFTAZIDIME INJ 1 GM VIAL ONE (05:59)
[2018-06-29] MEDS: CEFTAZIDIME PENTAHYDRATE 2 GM in DEXTROSE 5%-WATER 100 ML IV SCH ×3 (06:08→21:39)
[2018-06-29] MEDS: NYSTATIN/TRIAMCIN CREAM 15 GM TP SCH ×3 (06:16→22:03)
[2018-06-29] MEDS ORDERED: ASPIRIN 81 MG TABLET, ENT COATED PO SCH (10:00)
[2018-06-29] MEDS: DOCUSATE SODIUM 100 MG/10 ML UDC PEG SCH ×2 (10:14→18:31)
[2018-06-29] MEDS: METOPROLOL TARTRATE 25 MG TABLET PO SCH ×2 (10:15→22:03)
[2018-06-29] MEDS: AMLODIPINE BESYLATE 5 MG TABLET PO SCH (10:15)
[2018-06-29] MEDS: CETIRIZINE 5 MG TABLET PO SCH (10:15)
[2018-06-29] MEDS: CLOPIDOGREL BISULFATE 75 MG TABLET PO SCH (10:15)
[2018-06-29] MEDS: CLONIDINE HCL 0.1 MG TABLET PO SCH ×2 (10:16→22:03)
[2018-06-29 11:40] LABS: PATH REVIEW PATHOLOGIST REVIEWED
[2018-06-29] MEDS ORDERED: OXYCODONE HCL IR 5 MG TABLET PO PRN (12:24)
[2018-06-29] MEDS ORDERED: GLUCAGON,HUMAN RECOMB 1 MG INJ IM PRN (12:30)
[2018-06-29] MEDS ORDERED: DEXTROSE 50%-WATER 25 GM/50 ML DISP.SYRIN IV PRN ×2 (12:30)
[2018-06-29] MEDS ORDERED: DEXTROSE 40% GEL 15 GM TUBE PO PRN ×2 (12:30)
--- NOTE | 2018-06-29 12:35 | PDOC PROGRESS REPORT ---
Subjective Progress Note for:: 06/29/18 Subjective:: 68 year old female with a past medical history of CVA with immobility, peripheral vascular disease status post bilateral lower extremity amputation, chronic kidney disease, diabetes, chronic UTI and stage III sacral decubiti. She is brought to the emergency room for altered mental status found to have leukocytosis, acute on chronic renal failure, pyuria, 4 x 4 centimeter stage IV sacral decubiti, 2 x 3 cm stage II decubiti at the gluteal fold bilaterally. Patient admits to pain but is unable to localize. She received empiric antibiotic and refer to the hospitalist for admission. [id number]-old female with multiple medical problems including sacral decubitus, diabetes mellitus, chronic UTI, chronic kidney disease bilateral lower extremity amputation came to the emergency room with altered mental status found to have elevated WBC count acute on chronic renal failure, pyuria. No acute events since the hospital admission. Patient is afebrile. WBC count is still 25,000. Patient is a full code as per the family. Son has the power of deputy commonwealth's attorney. Once she stable family wants to take her back home. Reason For Visit: UTI ,DECUB SEPSIS, UREMIA Physical Exam Vital Signs: Temp Pulse Resp BP Pulse Ox 97.9 F 6 L 147/58 H 100 06/29/18 03:01 06/29/18 12:01 06/29/18 12:01 06/29/18 12:01 Intake & Output 06/28/18 06/29/18 06/30/18 06:59 06:59 06:59 Intake Total 2150 1100 Output Total 500 Balance 1650 1100 Weight 60.555 kg General appearance: PRESENT: no acute distress, obese Head exam: PRESENT: atraumatic Mouth exam: PRESENT: moist, tongue midline Teeth exam: PRESENT: poor dentation Neck exam: ABSENT: carotid bruit, JVD, lymphadenopathy, thyromegaly Respiratory exam: PRESENT: clear to auscultation nicole. ABSENT: rales, rhonchi, wheezes Cardiovascular exam: PRESENT: RRR. ABSENT: diastolic murmur, rubs, systolic murmur GI/Abdominal exam: PRESENT: normal bowel sounds, soft. ABSENT: distended, gua rding, mass, organolmegaly, rebound, tenderness Rectal exam: PRESENT: deferred Extremities exam: PRESENT: other - Bilateral lower extremity amputation. Neurological exam: PRESENT: alert, awake, oriented to person, oriented to place, oriented to time, oriented to situation, CN II-XII grossly intact. ABSENT: motor sensory deficit Psychiatric exam: PRESENT: appropriate affect, normal mood. ABSENT: homicidal ideation, suicidal ideation Skin exam: PRESENT: other - She has a stage III sacral decubitus. Results Laboratory Results: 06/29/18 03:22 06/29/18 03:22 06/28/18 06/28/18 06/28/18 14:06 15:30 15:30 WBC 30.6 H* RBC 3.53 L Hgb 9.7 L Hct 29.6 L MCV 84 MCH 27.6 MCHC 32.9 RDW 13.8 Plt Count 291 Seg Neutrophils % Not Reportable Lymphocytes % Not Reportable Monocytes % Not Reportable Eosinophils % Not Reportable Basophils % Not Reportable Absolute Neutrophils Not Reportable Absolute Lymphocytes Not Reportable Absolute Monocytes Not Reportable Absolute Eosinophils Not Reportable Absolute Basophils Not Reportable Sodium 129.8 L Potassium 5.2 H Chloride 98 Carbon Dioxide 20 L Anion Gap 12 BUN 206 H Creatinine 2.54 H Est GFR ( Amer) 23 L Est GFR (Non-Af Amer) 19 L Glucose 206 H Lactic Acid Calcium 9.3 Phosphorus Magnesium 4.0 H Total Bilirubin 0.4 AST 217 H ALT 422 H Alkaline Phosphatase 272 H Total Protein 7.3 Albumin 3.4 L Prealbumin Urine Color YELLOW Urine Appearance CLOUDY Urine pH 5.0 Ur Specific [place] 1.012 Urine Protein 100 H Urine Glucose (UA) 150 H Urine Ketones NEGATIVE Urine Blood SMALL H Urine Nitrite NEGATIVE Ur Leukocyte Esterase LARGE H Urine WBC (Auto) 99 Urine RBC (Auto) 5 06/28/18 06/28/18 06/28/18 15:30 20:10 20:10 WBC RBC Hgb Hct MCV MCH MCHC RDW Plt Count Seg Neutrophils % Lymphocytes % Monocytes % Eosinophils % Basophils % Absolute Neutrophils Absolute Lymphocytes Absolute Monocytes Absolute Eosinophils Absolute Basophils Sodium Potassium Chloride Carbon Dioxide Anion Gap BUN Creatinine Est GFR ( Amer) Est GFR (Non-Af Amer) Glucose Lactic Acid 1.0 Calcium Phosphorus 5.3 H Magnesium 4.0 H Total Bilirubin AST ALT Alkaline Phosphatase Total Protein Albumin Prealbumin 15.3 L Urine Color Urine Appearance Urine pH Ur Specific [place] Urine Protein Urine Glucose (UA) Urine Ketones Urine Blood Urine Nitrite Ur Leukocyte Esterase Urine WBC (Auto) Urine RBC (Auto) 06/29/18 06/29/18 03:22 03:22 WBC 25.2 H RBC 2.96 L Hgb 8.2 L Hct 24.8 L MCV 84 MCH 27.8 MCHC 33.2 RDW 14.0 Plt Count 219 Seg Neutrophils % Not Reportable Lymphocytes % Not Reportable Monocytes % Not Reportable Eosinophils % Not Reportable Basophils % Not Reportable Absolute Neutrophils Not Reportable Absolute Lymphocytes Not Reportable Absolute Monocytes Not Reportable Absolute Eosinophils Not Reportable Absolute Basophils Not Reportable Sodium 132.0 L Potassium 4.8 Chloride 99 Carbon Dioxide 19 L Anion Gap 14 BUN 192 H Creatinine 2.41 H Est GFR ( Amer) 24 L Est GFR (Non-Af Amer) 20 L Glucose 137 H Lactic Acid Calcium 8.8 Phosphorus Magnesium Total Bilirubin AST ALT Alkaline Phosphatase Total Protein Albumin Prealbumin Urine Color Urine Appearance Urine pH Ur Specific [place] Urine Protein Urine Glucose (UA) Urine Ketones Urine Blood Urine Nitrite Ur Leukocyte Esterase Urine WBC (Auto) Urine RBC (Auto) 06/28/18 06/28/18 15:30 15:30 Creatine Kinase < 20 L Troponin I < 0.012 Impressions: Chest X-Ray 06/28/18 14:56 IMPRESSION: 1. Low lung volumes limits examination. No acute pulmonary findings. Assessment and Plan - Diagnosis (1) CKD (chronic kidney disease) stage 4, GFR 15-29 ml/min Is this a current diagnosis for this admission?: Yes Plan: With uremia, IV fluid challenge, follow-up chemistry 06/29/2018 patient's baseline creatinine is 1.9. On admission it was 2.5 improved to 2.4 today. Patient has a stage III/IV cKd. pLan is to repeat the labs tomorrow. Received normal saline IV bolus in the ER. (2) Leukocytosis Qualifiers: Leukocytosis type: unspecified Qualified Code(s): D72.829 - Elevated white blood cell count, unspecified Is this a current diagnosis for this admission?: Yes Plan: 06/29/2018-patient came in with WBC count of 30,000 100 improved to 25,000 today. Leukocytosis most likely secondary to underlying UTI plan is to repeat the labs tomorrow continue ceftazidime. (3) Acute encephalopathy Is this a current diagnosis for this admission?: Yes Plan: 06/29/2018-altered mental status/acute and coagulopathy most likely secondary to sepsis is resolved. (4) Diabetes Qualifiers: Diabetes mellitus halfway insulin use: with halfway use Diabetes mellitus complication status: with kidney complications Chronic kidney disease stage: stage 4 (severe) Is this a current diagnosis for this admission?: No Plan: 06/29/2018-patient has a history of type 2 diabetes mellitus. Plan to start her on insulin sliding scale. Patient is not on diabetic medications at home. diatery consult is going to be requested and to check for hemoglobin A1c tomorrow. (5) UTI (urinary tract infection) Qualifiers: Urinary tract infection type: acute cystitis Hematuria presence: with hematuria Qualified Code(s): N30.01 - Acute cystitis with hematuria Is this a current diagnosis for this admission?: Yes Plan: Recent urine culture grew E. coli sensitive to ceftazidime. Initiated. Follow- up blood and urine culture 06/29/2018 patient has history of recurrent UTI recent urine culture growing E. coli sensitivity to ceftriaxone. Urinalysis done in the ER shows leukocyte esterase is large. Urine culture is pending. Blood cultures are pending. (6) Sacral decubitus ulcer, stage III Is this a current diagnosis for this admission?: No Plan: 06/29/2018-patient has sacral decubitus stage II/III. Patient has history of CVA bedbound. Patient has a hospital bed at home. She has also home health available. if the sacral decubitus shows any signs of infection, surgical consult will be requested for possible debridement. - Time Time Spent with patient: 15-24 minutes Medications reviewed and adjusted accordingly: Yes Anticipated discharge: Home with Homehealth
[2018-06-29] MEDS: INSULIN LISPRO 100 UNIT/ML 3 ML VIAL SUBCUT SCH ×3 (14:17→22:22)
[2018-06-29] MEDS: CHOLECALCIFEROL (D3) 1,000 UNIT TABLET PO SCH (14:31)
[2018-06-29] MEDS: ASPIRIN 81 MG TABLET, ENT COATED PO SCH (22:03)
[2018-06-29] MEDS: GABAPENTIN 100 MG CAPSULE PO SCH (22:03)
[2018-06-29] MEDS: ATORVASTATIN CALCIUM 40 MG TABLET PO SCH (22:03)
[2018-06-30] MEDS: CEFTAZIDIME PENTAHYDRATE 2 GM in DEXTROSE 5%-WATER 100 ML IV SCH (05:02)
[2018-06-30] MEDS: NYSTATIN/TRIAMCIN CREAM 15 GM TP SCH ×3 (05:03→21:58)
[2018-06-30] MEDS: IPRATROPIUM/ALBUTEROL 0.5-2.5 MG/3 ML AMPUL NEB SCH ×3 (07:46→23:53)
[2018-06-30] MEDS: INSULIN LISPRO 100 UNIT/ML 3 ML VIAL SUBCUT SCH ×4 (08:22→21:57)
[2018-06-30] MEDS: CETIRIZINE 5 MG TABLET PO SCH (10:01)
[2018-06-30] MEDS: CHOLECALCIFEROL (D3) 1,000 UNIT TABLET PO SCH (10:01)
[2018-06-30] MEDS: CLONIDINE HCL 0.1 MG TABLET PO SCH ×2 (10:02→21:58)
[2018-06-30] MEDS: METOPROLOL TARTRATE 25 MG TABLET PO SCH ×2 (10:02→21:58)
[2018-06-30] MEDS: CLOPIDOGREL BISULFATE 75 MG TABLET PO SCH (10:02)
[2018-06-30] MEDS: ASPIRIN 81 MG TABLET, ENT COATED PO SCH ×2 (10:02→21:58)
[2018-06-30] MEDS: DOCUSATE SODIUM 100 MG/10 ML UDC PEG SCH ×2 (10:03→17:39)
[2018-06-30] MEDS: AMLODIPINE BESYLATE 5 MG TABLET PO SCH (10:03)
[2018-06-30] MEDS: ACETAMINOPHEN SOLN 325 MG/10.15 ML UDCUP PEG PRN (17:42)
--- NOTE | 2018-06-30 17:56 | PDOC PROGRESS REPORT ---
Subjective Progress Note for:: 06/30/18 Subjective:: GEORGE LAUGHLIN is a 68 year old female with a past medical history of CVA with immobility, peripheral vascular disease status post bilateral lower extremity amputation, chronic kidney disease, diabetes, chronic UTI and stage III sacral decubiti. She is brought to the emergency room for altered mental status found to have leukocytosis, acute on chronic renal failure, pyuria, 4 x 4 centimeter stage IV sacral decubiti, 2 x 3 cm stage II decubiti at the gluteal fold bilaterally. Patient admits to pain but is unable to localize. She received empiric antibiotic and refer to the hospitalist for admission. 06/30/2017. Patient has awake but very lethargic not follow commands when asked if she is in pain she says yes but does not localize, she does not seem to be in any acute distress, T-max 100, SBP 132-170. PO2 92 to 100% 2 L FiO2 28% nasal cannula. Pulse 70-80. RR 16-20. Weight 63.7 up from 60.0.5 on admission. BGL 113 -122. WBC 25.2 down from 30.6. Sodium 132.0, potassium 4.8, creatinine 2.41 baseline 2.4. Urine culture from 06/30/2018 growing MRSA. Reason For Visit: UTI ,DECUB SEPSIS, UREMIA Physical Exam Vital Signs: Temp Pulse Resp BP Pulse Ox 98.8 F 81 20 139/47 H 96 06/30/18 12:30 06/30/18 16:32 06/30/18 16:32 06/30/18 12:30 06/30/18 16:32 Intake & Output 06/29/18 06/30/18 07/01/18 06:59 06:59 06:59 Intake Total 0 2002 540 Output Total 500 700 600 Balance 1650 1303 -60 Weight 60.555 kg 63.7 kg General appearance: PRESENT: no acute distress Head exam: PRESENT: atraumatic, normocephalic Respiratory exam: PRESENT: clear to auscultation nicole. ABSENT: rales, rhonchi, wheezes Cardiovascular exam: PRESENT: RRR. ABSENT: diastolic murmur, rubs, systolic murmur GI/Abdominal exam: PRESENT: normal bowel sounds, soft. ABSENT: distended, guarding, mass, organolmegaly, rebound, tenderness Musculoskeletal exam: PRESENT: other - Right lower extremity AKA, left lower extremity BKA Neurological exam: PRESENT: awake Results Laboratory Results: 06/29/18 03:22 06/29/18 03:22 06/28/18 14:06 Catheterized Urine Urine Culture - Final Mrsa (Meth Resis Staph Aureus) 06/28/18 06/28/18 15:30 15:30 Creatine Kinase < 20 L Troponin I < 0.012 Impressions: Chest X-Ray 06/28/18 14:56 IMPRESSION: 1. Low lung volumes limits examination. No acute pulmonary findings. Assessment and Plan - Diagnosis (1) Acute encephalopathy Is this a current diagnosis for this admission?: Yes Plan: Most likely due to underlying infectious process. No improvement since admission. T-max 100, SBP 132-170. PO2 92 to 100% 2 L FiO2 28% nasal cannula. Pulse 70-80. RR 16-20. Weight 63.7 up from 60.0.5 on admission. BGL 113 -122. WBC 25.2 down from 30.6. Sodium 132.0, potassium 4.8, creatinine 2.41 baseline 2.4. Urine culture from 06/30/2018 growing MRSA. Continue treating the underlying infectious process. (2) CKD (chronic kidney disease) stage 4, GFR 15-29 ml/min Is this a current diagnosis for this admission?: Yes Plan: Creatinine stable. Electrolytes within normal limits. BGL 113 -122. WBC 25.2 down from 30.6. Sodium 132.0, potassium 4.8 creatinine 2.41 baseline 2.4. Urine culture from 06/30/2018 growing MRSA. Continue IV fluids guided by volume status. BMP tomorrow. Replace electrolytes as needed. (3) Leukocytosis Qualifiers: Leukocytosis type: unspecified Qualified Code(s): D72.829 - Elevated white blood cell count, unspecified Is this a current diagnosis for this admission?: Yes Plan: Urine culture positive for MRSA. No blood culture available from admission. Continue Fortaz Stat blood cultures. Started vancomycin 06/30/2018. Total 2 days of IV antibiotics. WBC 25.2 down from 30.6. Sodium 132.0, potassium 4.8, creatinine 2.41 baseline 2.4. Urine culture from 06/30/2018 growing MRSA. Patient febrile, altered, leukocytosis on admission urine culture positive for MRSA raises a question of seeding possibly endocarditis or any other focus of infection. Will order 2D echo obtain blood culture and start vancomycin. (4) Sacral decubitus ulcer, stage III Is this a current diagnosis for this admission?: No Plan: Patient has sacral decubitus stage II/III. Patient has history of CVA bedbound. Patient has a hospital bed at home. She has also home health available. If the sacral decubitus shows any signs of infection, surgical consult will be requested for possible debridement. Continue wound care. (5) UTI (urinary tract infection) Qualifiers: Urinary tract infection type: acute cystitis Hematuria presence: with hematuria Qualified Code(s): N30.01 - Acute cystitis with hematuria Is this a current diagnosis for this admission?: Yes Plan: Urine culture positive for MRSA. History of recurrent E. coli sensitive UTIs. Continue Fortaz Stat blood cultures. Started vancomycin 06/30/2018. Total 2 days of IV antibiotics. WBC 25.2 down from 30.6. Sodium 132.0, potassium 4.8, creatinine 2.41 baseline 2.4. Urine culture from 06/30/2018 growing MRSA. Patient febrile, altered, leukocytosis on admission urine culture positive for MRSA raises a question of seeding possibly endocarditis or any other focus of infection. Will order 2D echo obtain blood culture and start vancomycin. (6) Diabetes mellitus type 2 in obese Is this a current diagnosis for this admission?: No Plan: Controlled BGL 113 -122 Continue diabetic diet, Accu-Chek, sliding scale insulin, long-acting insulin, pre-meal insulin, adjust dosage as needed.
--- NOTE | 2018-06-30 20:40 | XCELERA REPORT ---
[address] [address] Transthoracic Echocardiogram Report Name: GEORGE LAUGHLIN Age: 68 yrs Gender: Female : 1950 Patient Status: Inpatient Patient Location: [address] [place] [address] Study Date: 06/30/2018 03:38 PM Procedure: A two-dimensional transthoracic echocardiogram with color flow and Doppler was performed. Study Quality: Technically suboptimal. The study was technically difficult with many images being suboptimal in quality. Reason For Study: concerned endocarditis History: ENDOCARDITIS. Ordering Physician: LIBERTAD CERNA Performed By: Shiela Belle Interpretation Summary The left ventricle is normal in size. There is normal left ventricular wall thickness. LV EF is 60% The left ventricular ejection fraction is within normal limits. Doppler measurements suggest normal left ventricular diastolic function The left ventricular wall motion is normal. There is no thrombus. Not agood study to assess ASD,VSD , or PFO. The right ventricle is not well visualized secondary to technical limitations The right atrium is normal. Right atrium not well visualized secondary to technical limitations The left atrium is mildly dilated. There is moderate mitral annular calcification. There is no evidence of mitral valve prolapse. There is no vegetation seen on the mitral valve. There is no mitral valve stenosis. There is a trace amount of mitral regurgitation There is no aortic valvular vegetation. There is no aortic valve stenosis There is aortic sclerosis without aortic stenosis. There is no LVOT obstruction. No aortic regurgitation is present. There is no tricuspid stenosis. There is a trace amount of tricuspid regurgitation There is mild pulmonary hypertension by echo RVSP is 33 to 38 mm of Hg , with RA mean of 5 to 10. There is no pulmonic valvular stenosis. There is no pulmonic valvular regurgitation. The aortic root is not well visualized but is probably normal size. The inferior vena cava appeared normal and decreased > 50% with respiration (RAP 5-10 mmHg) There is no pericardial effusion. MMode/2D Measurements & Calculations RVDd: 3.6 cm LVIDd: 5.0 cm FS: 30.9 % Ao root diam: 3.0 cm IVSd: 1.1 cm LVIDs: 3.5 cm EDV(Teich): 120.7 ml Ao root area: 7.0 cm2 LVPWd: 1.2 cm ESV(Teich): 50.3 ml EF(Teich): 58.3 % Doppler Measurements & Calculations MV E max avel: MV dec slope: Ao V2 max: LV V1 max P.6 cm/sec 184.9 cm/sec 4.6 mmHg MV A max avel: 686.0 cm/sec2 Ao max PG: LV V1 max: 133.4 cm/sec MV dec time: 0.19 sec13.7 mmHg 106.9 cm/sec MV E/A: 0.96 PA V2 max: TR max avel: 106.6 cm/sec 260.6 cm/sec PA max P.5 mmHg TR max P.2 mmHg Left Ventricle The left ventricle is normal in size. There is normal left ventricular wall thickness. LV EF is 60%. The left ventricular ejection fraction is within normal limits. Doppler measurements suggest normal left ventricular diastolic function. The left ventricular wall motion is normal. There is no thrombus. Not agood study to assess ASD,VSD , or PFO. Right Ventricle The right ventricle is not well visualized secondary to technical limitations. Atria The right atrium is normal. Right atrium not well visualized secondary to technical limitations. The left atrium is mildly dilated. Mitral Valve There is moderate mitral annular calcification. There is no evidence of mitral valve prolapse. There is no vegetation seen on the mitral valve. There is no mitral valve stenosis. There is a trace amount of mitral regurgitation. Aortic Valve There is no aortic valvular vegetation. There is no aortic valve stenosis. There is aortic sclerosis without aortic stenosis. There is no LVOT obstruction. No aortic regurgitation is present. Tricuspid Valve There is no tricuspid stenosis. There is a trace amount of tricuspid regurgitation. There is mild pulmonary hypertension by echo. RVSP is 33 to 38 mm of Hg , with RA mean of 5 to 10. Pulmonic Valve There is no pulmonic valvular stenosis. There is no pulmonic valvular regurgitation. Great Vessels The aortic root is not well visualized but is probably normal size. The inferior vena cava appeared normal and decreased > 50% with respiration (RAP 5-10 mmHg). Effusions There is no pericardial effusion. : LIBERTAD CERNA > Liya De Leon
[2018-06-30] MEDS ORDERED: VANCOMYCIN HCL 0 MG in DEXTROSE 5%-WATER 250 ML IV NR (21:00)
[2018-06-30] MEDS: GABAPENTIN 100 MG CAPSULE PO SCH (21:58)
[2018-06-30] MEDS: ATORVASTATIN CALCIUM 40 MG TABLET PO SCH (21:58)
[2018-06-30] MEDS ORDERED: VANCOMYCIN HCL 750 MG in DEXTROSE 5%-WATER 250 ML IV ONE (22:00)
[2018-07-01 04:36] LABS: ABSOLUTE BASOPHILS # (AUTO) 0.1 10^3/uL (0.0-0.2); ABSOLUTE LYMPHOCYTES (AUTO) 1.2 10^3/uL (0.5-4.7); ABSOLUTE MONOCYTES (AUTO) 1.8 10^3/uL (0.1-1.4); BASOPHILS % (AUTO) 0.5 % (0-2); EOSINOPHILS % (AUTO) 5.8 % (0-6); HEMATOCRIT 27.4 % (36.0-47.0); HEMOGLOBIN 9.2 g/dL (12.0-15.5); LYMPHOCYTES % (AUTO) 6.8 % (13-45); MEAN CORPUSCULAR HEMOGLOBIN 27.9 pg (27.0-33.4); MEAN CORPUSCULAR HGB CONC 33.5 g/dL (32.0-36.0); MEAN CORPUSCULAR VOLUME 83 fl (80-97); MONOCYTES % (AUTO) 10.1 % (3-13); PLATELET COUNT 260 10^3/uL (150-450); RED BLOOD COUNT 3.29 10^6/uL (3.72-5.28); RED CELL DISTRIBUTION WIDTH 14.1 % (11.5-14.0); SEGMENTED NEUTROPHILS % (AUTO) 76.8 % (42-78); TOTAL CELLS COUNTED % (AUTO) 100 %; WHITE BLOOD COUNT 18.2 10^3/uL (4.0-10.5)
[2018-07-01 04:46] LABS: ALANINE AMINOTRANSFERASE 289 U/L (9-52); ALBUMIN 2.7 g/dL (3.5-5.0); ALKALINE PHOSPHATASE 189 U/L (38-126); ANION GAP 14 (5-19); ASPARTATE AMINO TRANSFERASE 141 U/L (14-36); BILIRUBIN,DIRECT 0.5 mg/dL (0.0-0.4); BILIRUBIN,TOTAL 0.5 mg/dL (0.2-1.3); CALCIUM 9.1 mg/dL (8.4-10.2); CARBON DIOXIDE 17 mmol/L (22-30); CHLORIDE 104 mmol/L (98-107); GLUCOSE 106 mg/dL (75-110); POTASSIUM 4.8 mmol/L (3.6-5.0); SODIUM 135.4 mmol/L (137-145)
[2018-07-01 04:59] LABS: BLOOD UREA NITROGEN 164 mg/dL (7-20)
[2018-07-01] MEDS: CEFTAZIDIME PENTAHYDRATE 2 GM in DEXTROSE 5%-WATER 100 ML IV SCH (05:12)
[2018-07-01] MEDS: NYSTATIN/TRIAMCIN CREAM 15 GM TP SCH ×3 (05:12→22:43)
[2018-07-01] MEDS: IPRATROPIUM/ALBUTEROL 0.5-2.5 MG/3 ML AMPUL NEB SCH ×2 (07:52→16:21)
[2018-07-01] MEDS: INSULIN LISPRO 100 UNIT/ML 3 ML VIAL SUBCUT SCH ×4 (08:46→22:49)
[2018-07-01] MEDS: VANCOMYCIN HCL 500 MG in DEXTROSE 5%-WATER 100 ML IV SCH (11:08)
--- NOTE | 2018-07-01 11:50 | RADIOLOGY REPORT (SQ) ---
EXAM DESCRIPTION: CT ABD/PELVIS NO ORAL OR IV COMPLETED DATE/TIME: 07/01/2018 11:09 am REASON FOR STUDY: Hx of sacral ulcers, r/o osteo COMPARISON: 03/18/2017 TECHNIQUE: CT scan of the abdomen and pelvis performed without intravenous or oral contrast. Images reviewed with lung, soft tissue, and bone windows. Reconstructed coronal and sagittal MPR images revi ewed. All images stored on PACS. All CT scanners at this facility use dose modulation, iterative reconstruction, and/or weight based d osing when appropriate to reduce radiation dose to as low as reasonably achievable (ALARA). [facility]: Dose Right [facility]: CareDose [facility]: Dose Right [facility]: Teradose 4D [facility]: Smart Sidense RADIATION DOSE: CT Rad equipment meets quality standard of care and radiation dose reduction techniq ues were employed. CTDIvol: 9.5 mGy. DLP: 517 mGy-cm.mGy. LIMITATIONS: None. FINDINGS: LOWER CHEST: There are small bilateral pleural effusions right greater than left. There i s bibasilar airspace disease most likely atelectasis although pneumonia cannot be excluded. NON-CONTRASTED LIVER, SPLEEN, ADRENALS: The liver and spleen are unremarkable. Small bilateral adren al lesions are present most likely adenomas. Possibly hyperplasia. PANCREAS: No masses. No peripancreatic inflammatory changes. GALLBLADDER: Surgically absent. RIGHT KIDNEY AND URETER: There are areas of cortical scarring. Possibly postsurgical change. The re are small nonobstructing stones. There is vascular calcification. No hydronephrosis or hydroure ter. LEFT KIDNEY AND URETER: There is a 2.1 cm cortical mass. This is increased in size since prior study . Previously it measured 7 x 8 mm in greatest diameter. There is vascular calcification. No obstr ucting stones. No hydronephrosis or hydroureter. AORTA AND RETROPERITONEUM: Atherosclerotic change. No aneurysmal dilatation. BOWEL AND PERITONEAL CAVITY: There is a large amount of stool throughout the colon. No obstruction. No mesenteric inflammatory changes. APPENDIX: Normal. PELVIS, BLADDER, AND ABDOMINAL WALL:There is subcutaneous edema. There is a decubitus ulcer just rig ht of midline overlying the sacrum. Inflammatory changes do extend to the coccyx and lower sacral re gion. Bony involvement cannot be excluded. Correlation with three-phase bone scan are MRI would be more sensitive. BONES: As above. OTHER: No other significant finding. IMPRESSION: 1. Moderate constipation. 2. Left exophytic solid renal lesion has increased in size and now measures 2.1 cm. This could repr esent complex cyst although a solid mass cannot be excluded. 3. Decubitus ulcer just right of midline overlying the sacrum. Inflammation extends to the level of the lower sacrum and coccyx. Bone involvement cannot be excluded. 4. Subcutaneous edema. COMMENT: Quality ID # [id number]: Final reports with documentation of one or more dose reduction techniques (e.g., Automated exposure control, adjustment of the mA and/or kV according to patient size, use of iterative reconstruction technique) TECHNICAL DOCUMENTATION: JOB ID: [id number] [employer]- All Rights Reserved Reading location - IP/workstation name: [email or web address]
[2018-07-01] MEDS ORDERED: LACTULOSE SYRUP 20 GM/30 ML UDCUP PO ONE (14:32)
[2018-07-01] MEDS ORDERED: BISACODYL 5 MG TABEC PO ONE (14:32)
[2018-07-01] MEDS ORDERED: ONDANSETRON HCL INJ/PF 4 MG/2 ML SDV IV PRN (14:39)
[2018-07-01] MEDS ORDERED: PROMETHAZINE HCL 6.25 MG/5 ML SYRUP 60 ML PO PRN (14:39)
--- NOTE | 2018-07-01 14:50 | PDOC PROGRESS REPORT ---
Subjective Progress Note for:: 07/01/18 Subjective:: GEORGE LAUGHLIN is a 68 year old female with a past medical history of CVA with immobility, peripheral vascular disease status post bilateral lower extremity amputation, chronic kidney disease, diabetes, chronic UTI and stage III sacral decubiti. She is brought to the emergency room for altered mental status found to have leukocytosis, acute on chronic renal failure, pyuria, 4 x 4 centimeter stage IV sacral decubiti, 2 x 3 cm stage II decubiti at the gluteal fold bilaterally. Patient admits to pain but is unable to localize. She received empiric antibiotic and refer to the hospitalist for admission. 06/30/2017. Patient has awake but very lethargic not follow commands when asked if she is in pain she says yes but does not localize, she does not seem to be in any acute distress, T-max 100, SBP 132-170. PO2 92 to 100% 2 L FiO2 28% nasal cannula. Pulse 70-80. RR 16-20. Weight 63.7 up from 60.0.5 on admission. BGL 113 -122. WBC 25.2 down from 30.6. Sodium 132.0, potassium 4.8, creatinine 2.41 baseline 2.4. Urine culture from 06/30/2018 growing MRSA. 07/01/2018. Mild improvement of her mental status, patient is alert oriented x2. Does not communicate much, stating that she is hurting in her back was no complaints. Otherwise no complaints. Reason For Visit: UTI ,DECUB SEPSIS, UREMIA Physical Exam Vital Signs: Temp Pulse Resp BP Pulse Ox 98.2 F 86 18 170/66 H 100 07/01/18 11:28 07/01/18 11:28 07/01/18 11:28 07/01/18 11:28 07/01/18 11:28 Intake & Output 06/30/18 07/01/18 07/02/18 06:59 06:59 06:59 Intake Total 2002 2091 Output Total 700 3200 650 Balance 1303 1108 -650 Weight 63.7 kg 66.5 kg Results Laboratory Results: 07/01/18 03:35 07/01/18 04:21 07/01/18 07/01/18 03:35 04:21 WBC 18.2 H RBC 3.29 L Hgb 9.2 L Hct 27.4 L MCV 83 MCH 27.9 MCHC 33.5 RDW 14.1 H Plt Count 260 Seg Neutrophils % 76.8 Lymphocytes % 6.8 L Monocytes % 10.1 Eosinophils % 5.8 Basophils % 0.5 Absolute Neutrophils 14.0 H Absolute Lymphocytes 1.2 Absolute Monocytes 1.8 H Absolute Eosinophils 1.0 H Absolute Basophils 0.1 Sodium 135.4 L Potassium 4.8 Chloride 104 Carbon Dioxide 17 L Anion Gap 14 BUN 164 H Creatinine 1.94 H Est GFR ( Amer) 31 L Est GFR (Non-Af Amer) 26 L Glucose 106 Calcium 9.1 Magnesium 3.5 H Total Bilirubin 0.5 AST 141 H ALT 289 H Alkaline Phosphatase 189 H Total Protein 6.0 L Albumin 2.7 L 06/28/18 06/28/18 15:30 15:30 Creatine Kinase < 20 L Troponin I < 0.012 Impressions: Chest X-Ray 06/28/18 14:56 IMPRESSION: 1. Low lung volumes limits examination. No acute pulmonary findings. Abdomen/Pelvis CT 07/01/18 00:00 IMPRESSION: 1. Moderate constipation. 2. Left exophytic solid renal lesion has increased in size and now measures 2.1 cm. This could represent complex cyst although a solid mass cannot be excluded. 3. Decubitus ulcer just right of midline overlying the sacrum. Inflammation extends to the level of the lower sacrum and coccyx. Bone involvement cannot be excluded. 4. Subcutaneous edema. Assessment and Plan - Diagnosis (1) Acute encephalopathy Is this a current diagnosis for this admission?: Yes Plan: Most likely due to underlying infectious process. No improvement since admission. 07/01/2018. SBP 139-170. T-max 98.2. Pulse 69-86. SPO2 100% on 2 L nasal cannula FiO2 28%. WBC 18.2 down from 30.6 on admission, sodium 135.4, potassium 4.8, bicarbonate 17, creatinine 1.94 down from 2.54 from admission Urine culture from 06/30/2018 growing MRSA. Continue treating the underlying infectious process. Blood cultures no growth x 24 hours. (2) CKD (chronic kidney disease) stage 4, GFR 15-29 ml/min Is this a current diagnosis for this admission?: Yes Plan: Creatinine stable. Electrolytes within normal limits. 07/01/2018. sodium 135.4, potassium 4.8, bicarbonate 17, Creatinine 1.94 down from 2.54 from admission. Baseline 2.4. Urine culture from 06/30/2018 growing MRSA. Continue IV fluids guided by volume status. BMP tomorrow. Replace electrolytes as needed. (3) Leukocytosis Qualifiers: Leukocytosis type: unspecified Qualified Code(s): D72.829 - Elevated white blood cell count, unspecified Is this a current diagnosis for this admission?: Yes Plan: Urine culture positive for MRSA. No blood culture available from admission. Continue Fortaz and Vanco Started vancomycin 06/30/2018. Total 3 days of IV antibiotics. 07/01/2018. WBC 18.2 down from 30.6 on admission, sodium 135.4, potassium 4.8, bicarbonate 17, creatinine 1.94 down from 2.54 from admission Urine culture from 06/30/2018 growing MRSA. Patient febrile, altered, leukocytosis on admission urine culture positive for MRSA raises a question of seeding possibly endocarditis or decubitus ulcer. 07/01/2018. 2D echo no vegetations. Ejection fraction 60%. CT pelvis constipation and decubitus ulcer inflammation extending to the sacrum. No sign of osteomyelitis. (4) Sacral decubitus ulcer, stage III Is this a current diagnosis for this admission?: No Plan: Patient has sacral decubitus stage III. Patient has history of CVA bedbound. Patient has a hospital bed at home. She has also home health available. 07/01/2018. CT abdomen and pelvis. Moderate constipation. Decubitus ulcer just right of midline overlying the sacrum. Inflammation extends to the level of the lower sacrum and coccyx. Bone involvement cannot be excluded. (5) UTI (urinary tract infection) Qualifiers: Urinary tract infection type: acute cystitis Hematuria presence: with hematuria Qualified Code(s): N30.01 - Acute cystitis with hematuria Is this a current diagnosis for this admission?: Yes Plan: Urine culture positive for MRSA. History of recurrent E. coli sensitive UTIs. 07/01/2018. WBC 18.2 down from 30.6 on admission, sodium 135.4, potassium 4.8, bicarbonate 17, creatinine 1.94 down from 2.54 from admission Continue Fortaz Stat blood cultures. Started vancomycin 06/30/2018. Total 3 days of IV antibiotics. Urine culture from 06/30/2018 growing MRSA. (6) Diabetes mellitus type 2 in obese Is this a current diagnosis for this admission?: No Plan: Controlled BGL 113 -122 Continue diabetic diet, Accu-Chek, sliding scale insulin, long-acting insulin, pre-meal insulin, adjust dosage as needed. (7) Nausea & vomiting Qualifiers: Vomiting type: unspecified Vomiting Intractability: intractable Qualified Code(s): R11.2 - Nausea with vomiting, unspecified Is this a current diagnosis for this admission?: Yes Plan: Antiemetics. Supportive measures. Monitor replace electrolytes as needed. (8) Constipation Qualifiers: Constipation type: unspecified constipation type Qualified Code(s): K59.00 - Constipation, unspecified Is this a current diagnosis for this admission?: No Plan: Started on bowel regimen. (9) Hypertension Qualifiers: Hypertension type: essential hypertension Qualified Code(s): I10 - Essential (primary) hypertension Is this a current diagnosis for this admission?: No Plan: Not controlled. 07/01/2018. SBP 139-170. T-max 98.2. Pulse 69-86. SPO2 100% on 2 L nasal cannula FiO2 28%. DC amlodipine due to constipation. Increase clonidine to 0.2 MCG transdermal.
[2018-07-01] MEDS ORDERED: FUROSEMIDE INJ/PF 40 MG/4 ML SDV IV ONE (15:16)
[2018-07-01] MEDS: CLOPIDOGREL BISULFATE 75 MG TABLET PO SCH (15:18)
[2018-07-01] MEDS: ASPIRIN 81 MG TABLET, ENT COATED PO SCH ×2 (15:18→22:14)
[2018-07-01] MEDS: CHOLECALCIFEROL (D3) 1,000 UNIT TABLET PO SCH (15:18)
[2018-07-01] MEDS: CETIRIZINE 5 MG TABLET PO SCH (15:19)
[2018-07-01] MEDS: CLONIDINE HCL 0.1 MG TABLET PO SCH ×3 (15:20→22:14)
[2018-07-01] MEDS: GABAPENTIN 100 MG CAPSULE PO SCH ×2 (15:22→22:41)
[2018-07-01] MEDS ORDERED: BISACODYL 10 MG SUPP.RECT PR ONE (16:00)
[2018-07-01] MEDS: METOPROLOL TARTRATE 25 MG TABLET PO SCH (21:20)
[2018-07-01] MEDS: DOCUSATE SODIUM 100 MG/10 ML UDC PEG SCH (21:20)
[2018-07-01] MEDS: AMLODIPINE BESYLATE 5 MG TABLET PO SCH (21:21)
[2018-07-01] MEDS: ATORVASTATIN CALCIUM 40 MG TABLET PO SCH (22:14)
[2018-07-01] MEDS: HYDRALAZINE HCL INJ/PF 20 MG/1 ML SDV IV PRN (22:43)
[2018-07-02] MEDS: IPRATROPIUM/ALBUTEROL 0.5-2.5 MG/3 ML AMPUL NEB SCH ×3 (00:09→15:36)
[2018-07-02] MEDS: CEFTAZIDIME PENTAHYDRATE 2 GM in DEXTROSE 5%-WATER 100 ML IV SCH (06:18)
[2018-07-02] MEDS: GABAPENTIN 100 MG CAPSULE PO SCH ×3 (06:24→22:05)
[2018-07-02] MEDS: NYSTATIN/TRIAMCIN CREAM 15 GM TP SCH ×3 (06:25→22:08)
[2018-07-02] MEDS ORDERED: MORPHINE SULFATE 10 MG/ML INJ IV PRN ×2 (08:25→08:33)
[2018-07-02] MEDS ORDERED: BISACODYL 10 MG SUPP.RECT PR PRN (08:34)
[2018-07-02] MEDS: INSULIN LISPRO 100 UNIT/ML 3 ML VIAL SUBCUT SCH ×4 (08:49→22:05)
[2018-07-02] MEDS: DOCUSATE SODIUM 100 MG CAPSULE PO SCH (10:04)
[2018-07-02] MEDS: ASPIRIN 81 MG TABLET, ENT COATED PO SCH ×2 (10:04→22:05)
--- NOTE | 2018-07-02 10:05 | PDOC CONSULTATION ---
Consultation Consult Date: 07/02/18 Consult reason:: sacral decubitus History of Present Illness Admission Date/PCP: 06/28/18 18:36 SHELBY RAYA MD History of Present Illness: GEORGE LAUGHLIN is a 68 year old female noted to have sacral decube. Pt apparently im NH x [address] scan which showed inflammation at the sacro coccygeal area but no collection. Her WBC yesterday was 30,00 and today down to 18,000. Past Medical History Cardiac Medical History: Reports: Hyperlipidema, Hypertension, Peripheral Vascular Disease Denies: Atrial Fibrillation, Congestive Heart Failure, Myocardial Infarction, Pulmonary Embolism Pulmonary Medical History: Reports: Chronic Obstructive Pulmonary Disease (COPD) Denies: Asthma Neurological Medical History: Denies: Seizures Endocrine Medical History: Reports: Diabetes Mellitus Type 2 GI Medical History: Denies: Hepatitis, Hiatal Hernia Psychiatric Medical History: Reports: Depression Hematology: Denies: Anemia, Sickle Cell Disease Past Surgical History Past Surgical History: Reports: Hysterectomy, Orthopedic Surgery - Left BKA, right AKA, Vascular Surgery - Failed angioplasty and stenting into the lower extremities. Denies: Amputation, Mastectomy, Pacemaker Social History Lives with: Family Smoking Status: Former Smoker Frequency of Alcohol Use: None Hx Recreational Drug Use: No Drugs: None Hx Prescription Drug Abuse: No - Advance Directive Resuscitation Status: Full Code Family History Family History: CAD, COPD Parental Family History Reviewed: Yes Children Family History Reviewed: No Sibling(s) Family History Reviewed.: No Medication/Allergy Home Medications: Amlodipine Besylate [Norvasc 5 mg Tablet] 10 mg PO DAILY 03/28/18 Buprenorphine [Butrans] 1 patch TD FR@1000 04/18/18 Metoprolol Tartrate [Lopressor 25 mg Tablet] 25 mg PO Q12 04/18/18 Naloxone HCl [Narcan] 1 spray NASL DAILY PRN 04/18/18 Atorvastatin Calcium [Lipitor 40 mg Tablet] 40 mg PO QHS 05/19/18 Clopidogrel Bisulfate [Plavix 75 mg Tablet] 75 mg PO DAILY 05/19/18 Dextrose [Glucose] 1 each PO PRN PRN 05/19/18 Gabapentin [Neurontin 100 mg Capsule] 100 mg PO QHS 05/19/18 Aspirin [Ecotrin 81 mg EC Tablet] 81 mg PO Q12 06/28/18 Cholecalciferol (Vitamin D3) [Vitamin D3 5000 unit Capsule] 5,000 unit PO DAILY 06/28/18 Clonidine [Catapres-Tts 3 (0.3 mg/24 Hr) Transderm Patch] 1 patch TD FR@1000 06/28/18 Oxycodone HCl [Oxy-Ir 5 mg Tablet] 7.5 mg PO Q5HP PRN MDD 37.5 MG 06/28/18 Polyethylene Glycol 3350 [Miralax Powder 17 gm/Packet] 1 packet PO Q2D 06/28/18 Allergies/Adverse Reactions: heparin Allergy (Intermediate, Verified 05/18/18 19:46) Hives latex [Latex] Allergy (Mild, Verified 05/18/18 19:46) RASH Penicillins Allergy (Mild, Verified 05/18/18 19:46) RASH, BREATHING DIFFICULTY shellfish derived Allergy (Unknown, Verified 06/30/18 07:57) coconut Allergy (Verified 05/18/18 19:46) codeine Allergy (Verified 05/18/18 19:46) Review of Systems Review of Systems: not very communicative. Had a stroke and bedridden. Son at bedside Physical Exam Vital Signs: Temp Pulse Resp BP Pulse Ox 98.4 F 94 18 162/99 H 97 07/02/18 07:37 07/02/18 07:52 07/02/18 07:52 07/02/18 07:37 07/02/18 08:00 Intake & Output 07/01/18 07/02/18 07/03/18 06:59 06:59 06:59 Intake Total 2092 260 Output Total 3200 1900 Balance -1108 -1640 Weight 66.5 kg 64.6 kg Exam: Has a coccygeal decubitus stage 3. No obvious collection at this time. Mild tenderness and erythema Pt seen with Hospitalist and pt's son. Results Laboratory Results: 07/01/18 03:35 07/01/18 04:21 06/28/18 06/28/18 15:30 15:30 Creatine Kinase < 20 L Troponin I < 0.012 Impressions: Chest X-Ray 06/28/18 14:56 IMPRESSION: 1. Low lung volumes limits examination. No acute pulmonary findings. Abdomen/Pelvis CT 07/01/18 00:00 IMPRESSION: 1. Moderate constipation. 2. Left exophytic solid renal lesion has increased in size and now measures 2.1 cm. This could represent complex cyst although a solid mass cannot be excluded. 3. Decubitus ulcer just right of midline overlying the sacrum. Inflammation extends to the level of the lower sacrum and coccyx. Bone involvement cannot be excluded. 4. Subcutaneous edema. Assessment & Plan - Diagnosis (1) sacral decube stage 3 Is this a current diagnosis for this admission?: Yes - Time Time Spent: 30 to 50 Minutes - Plan Summary Plan Summary: No definite indication for debridement right now. Will re-evaluate in am. Continue IV antibiotics. Turn to sides frequently.
[2018-07-02] MEDS: FUROSEMIDE INJ/PF 20 MG/2 ML SDV IV SCH ×2 (10:15→22:08)
[2018-07-02] MEDS: VANCOMYCIN HCL 500 MG in DEXTROSE 5%-WATER 100 ML IV SCH (10:15)
[2018-07-02] MEDS: LUBIPROSTONE 24 MCG CAPSULE PO SCH (10:17)
[2018-07-02] MEDS: FONDAPARINUX SODIUM INJ 2.5 MG/0.5 ML DISP.SYRIN SUBCUT SCH (10:17)
[2018-07-02] MEDS: CLOPIDOGREL BISULFATE 75 MG TABLET PO SCH (10:17)
[2018-07-02] MEDS: CLONIDINE 0.3 MG/24 HR PATCH.TDWK TD SCH (10:17)
[2018-07-02] MEDS: CETIRIZINE 5 MG TABLET PO SCH (10:18)
[2018-07-02] MEDS: CHOLECALCIFEROL (D3) 1,000 UNIT TABLET PO SCH (10:18)
[2018-07-02 10:27] LABS: HEMATOCRIT 27.6 % (36.0-47.0); HEMOGLOBIN 9.4 g/dL (12.0-15.5); MEAN CORPUSCULAR HEMOGLOBIN 28.3 pg (27.0-33.4); MEAN CORPUSCULAR HGB CONC 33.9 g/dL (32.0-36.0); MEAN CORPUSCULAR VOLUME 83 fl (80-97); PLATELET COUNT 341 10^3/uL (150-450); RED CELL DISTRIBUTION WIDTH 14.5 % (11.5-14.0); WHITE BLOOD COUNT 19.6 10^3/uL (4.0-10.5)
[2018-07-02 10:37] LABS: ALANINE AMINOTRANSFERASE 202 U/L (9-52); ALKALINE PHOSPHATASE 138 U/L (38-126); ANION GAP 14 (5-19); ASPARTATE AMINO TRANSFERASE 61 U/L (14-36); BILIRUBIN,DIRECT 0.5 mg/dL (0.0-0.4); BILIRUBIN,TOTAL 0.5 mg/dL (0.2-1.3); CALCIUM 9.7 mg/dL (8.4-10.2); CARBON DIOXIDE 19 mmol/L (22-30); CHLORIDE 105 mmol/L (98-107); GLUCOSE 87 mg/dL (75-110); POTASSIUM 4.3 mmol/L (3.6-5.0); SODIUM 137.5 mmol/L (137-145); TOTAL PROTEIN 6.6 g/dL (6.3-8.2)
[2018-07-02 10:44] LABS: BLOOD UREA NITROGEN 141 mg/dL (7-20)
[2018-07-02 11:14] LABS: ABSOLUTE LYMPHOCYTES# (MANUAL) 1.6 10^3/uL (0.5-4.7); ABSOLUTE MONOCYTES # (MANUAL) 0.6 10^3/uL (0.1-1.4); ABSOLUTE NEUTROPHILS# (MANUAL) 16.5 10^3/uL (1.7-8.2); BASOPHILS % (MANUAL) 0 % (0-2); EOSINOPHILS % (MANUAL) 5 % (0-6); LYMPHOCYTES % (MANUAL) 8 % (13-45); MONOCYTES % (MANUAL) 3 % (3-13); SEGMENTED NEUTROPHILS % (MAN) 84 % (42-78); TOTAL CELLS COUNTED 100
[2018-07-02 11:15] LABS: ANISOCYTOSIS SLIGHT; PLATELET COMMENT ADEQUATE; PLATELET LARGE PRESENT
--- NOTE | 2018-07-02 12:12 | PDOC PROGRESS REPORT ---
Subjective Progress Note for:: 07/02/18 Subjective:: GEORGE LAUGHLIN is a 68 year old female with a past medical history of CVA with immobility, peripheral vascular disease status post bilateral lower extremity amputation, chronic kidney disease, diabetes, chronic UTI and stage III sacral decubiti. She is brought to the emergency room for altered mental status found to have leukocytosis, acute on chronic renal failure, pyuria, 4 x 4 centimeter stage IV sacral decubiti, 2 x 3 cm stage II decubiti at the gluteal fold bilaterally. Patient admits to pain but is unable to localize. She received empiric antibiotic and refer to the hospitalist for admission. 06/30/2017. Patient has awake but very lethargic not follow commands when asked if she is in pain she says yes but does not localize, she does not seem to be in any acute distress, T-max 100, SBP 132-170. PO2 92 to 100% 2 L FiO2 28% nasal cannula. Pulse 70-80. RR 16-20. Weight 63.7 up from 60.0.5 on admission. BGL 113 -122. WBC 25.2 down from 30.6. Sodium 132.0, potassium 4.8, creatinine 2.41 baseline 2.4. Urine culture from 06/30/2018 growing MRSA. 07/01/2018. Mild improvement of her mental status, patient is alert oriented x2. Does not communicate much, stating that she is hurting in her back was no complaints. Otherwise no complaints. 07/02/2018. Patient complaining of constant back pain, nausea, abdominal pain, more alert, PEG tube still expressing fecal material, had 2 bowel movements since yesterday. Denies chest pain, shortness of breath. Was evaluated by surgery for possible debridement of stage III decubitus ulcer however upon expansion they noted that she did not have any drainable collections. 07/02/2018: SBP 136-170, T-max 98.4, pulse 70-94, SPO2 97 to 102 L NC, WBC 19.6, Plt 341, Hgb 9.4, Na 137.5, K 4.3, HC3 19, Instructional Support Services Director 2.24 up from 1.94, baseline 2.41. 4 04/12/2018 blood cultures no growth x24 hours. Weight 64 from 6 kg up from six- point weight 64.6 kg up from 60.5 kg on admission. Fluid balance -1640. Reason For Visit: UTI ,DECUB SEPSIS, UREMIA Physical Exam Vital Signs: Temp Pulse Resp BP Pulse Ox 98.4 F 94 18 147/58 H 97 07/02/18 07:37 07/02/18 07:52 07/02/18 07:52 07/02/18 08:00 07/02/18 08:00 Intake & Output 07/01/18 07/02/18 07/03/18 06:59 06:59 06:59 Intake Total 2092 260 Output Total 3200 1900 Balance -1108 -1640 Weight 66.5 kg 64.6 kg General appearance: PRESENT: mild distress Head exam: PRESENT: atraumatic, normocephalic Respiratory exam: PRESENT: clear to auscultation nicole, crackles, other. ABSENT: rales, rhonchi, wheezes Cardiovascular exam: PRESENT: RRR. ABSENT: diastolic murmur, rubs, systolic murmur GI/Abdominal exam: PRESENT: normal bowel sounds, soft. ABSENT: distended, guarding, mass, organolmegaly, rebound, tenderness Extremities exam: PRESENT: full ROM. ABSENT: calf tenderness, clubbing, pedal edema Musculoskeletal exam: PRESENT: tenderness - Stage III decubitus ulcer, no active discharge, tenderness to palpation, collection noted., other Results Laboratory Results: 07/02/18 10:00 07/02/18 10:00 07/02/18 07/02/18 10:00 10:00 WBC 19.6 H RBC 3.30 L Hgb 9.4 L Hct 27.6 L MCV 83 MCH 28.3 MCHC 33.9 RDW 14.5 H Plt Count 341 Seg Neutrophils % Not Reportable Lymphocytes % Not Reportable Monocytes % Not Reportable Eosinophils % Not Reportable Basophils % Not Reportable Absolute Neutrophils Not Reportable Absolute Lymphocytes Not Reportable Absolute Monocytes Not Reportable Absolute Eosinophils Not Reportable Absolute Basophils Not Reportable Sodium 137.5 Potassium 4.3 Chloride 105 Carbon Dioxide 19 L Anion Gap 14 BUN 141 H Creatinine 2.24 H Est GFR ( Amer) 26 L Est GFR (Non-Af Amer) 22 L Glucose 87 Calcium 9.7 Magnesium 3.4 H Total Bilirubin 0.5 AST 61 H ALT 202 H Alkaline Phosphatase 138 H Total Protein 6.6 Albumin 3.0 L 06/28/18 06/28/18 15:30 15:30 Creatine Kinase < 20 L Troponin I < 0.012 Impressions: Chest X-Ray 06/28/18 14:56 IMPRESSION: 1. Low lung volumes limits examination. No acute pulmonary findings. Abdomen/Pelvis CT 07/01/18 00:00 IMPRESSION: 1. Moderate constipation. 2. Left exophytic solid renal lesion has increased in size and now measures 2.1 cm. This could represent complex cyst although a solid mass cannot be excluded. 3. Decubitus ulcer just right of midline overlying the sacrum. Inflammation extends to the level of the lower sacrum and coccyx. Bone involvement cannot be excluded. 4. Subcutaneous edema. Assessment and Plan - Diagnosis (1) Acute encephalopathy Is this a current diagnosis for this admission?: Yes Plan: Most likely due to underlying infectious process. Moderate improvement. Awake and alert. 07/02/2018: SBP 136-170, T-max 98.4, pulse 70-94, SPO2 97 to 102 L NC, WBC 19.6, platelet 341, Hgb 9.4, 137.5, potassium 4.3, bicarb 19, creatinine 2.24 up from 1.94, baseline 2.41. 07/01/2018. SBP 139-170. T-max 98.2. Pulse 69-86. SPO2 100% on 2 L nasal cannula FiO2 28%. WBC 18.2 down from 30.6 on admission, sodium 135.4, potassium 4.8, bicarbonate 17, creatinine 1.94 down from 2.54 from admission Urine culture from 06/30/2018 growing MRSA. Continue treating the underlying infectious process. Blood cultures no growth x 24 hours. (2) CKD (chronic kidney disease) stage 4, GFR 15-29 ml/min Is this a current diagnosis for this admission?: Yes Plan: Creatinine stable. Electrolytes within normal limits. 07/02/2018: Sodium 137.5, potassium 4.3, bicarb 19, creatinine 2.24 up from 1.94, baseline 2.41, Mg 3.4 down from 3.5. Fluid balance -1640. 07/01/2018. sodium 135.4, potassium 4.8, bicarbonate 17, creatinine 1.94 down from 2.54 from admission. Baseline 2.4. Urine culture from 06/30/2018 growing MRSA. BMP tomorrow. Replace electrolytes as needed. (3) Leukocytosis Qualifiers: Leukocytosis type: unspecified Qualified Code(s): D72.829 - Elevated white blood cell count, unspecified Is this a current diagnosis for this admission?: Yes Plan: Urine culture positive for MRSA. No blood culture available from admission. Continue Fortaz and Vanco Started vancomycin 06/30/2018. Total 3 days of IV antibiotics. 07/01/2018. WBC 18.2 down from 30.6 on admission, sodium 135.4, potassium 4.8, bicarbonate 17, creatinine 1.94 down from 2.54 from admission Urine culture from 06/30/2018 growing MRSA. Patient febrile, altered, leukocytosis on admission urine culture positive for MRSA raises a question of seeding possibly endocarditis or decubitus ulcer. 07/01/2018. 2D echo no vegetations. Ejection fraction 60%. CT pelvis constipation and decubitus ulcer inflammation extending to the sacrum. No sign of osteomyelitis. (4) Sacral decubitus ulcer, stage III Is this a current diagnosis for this admission?: No Plan: Patient has sacral decubitus stage III. Active discharge or drainage will collection. Was evaluated by surgery and at this point no drainage she will collection was observed. 07/01/2018. CT abdomen and pelvis. Moderate constipation. Decubitus ulcer just right of midline overlying the sacrum. Inflammation extends to the level of the lower sacrum and coccyx. Bone involvement cannot be excluded. (5) UTI (urinary tract infection) Qualifiers: Urinary tract infection type: acute cystitis Hematuria presence: with hematuria Qualified Code(s): N30.01 - Acute cystitis with hematuria Is this a current diagnosis for this admission?: Yes Plan: Urine culture positive for MRSA. History of recurrent E. coli sensitive UTIs. Continue Fortaz Stat blood cultures. Started vancomycin 06/30/2018. Total 3 days of IV antibiotics. Urine culture from 06/30/2018 growing MRSA. (6) Diabetes mellitus type 2 in obese Is this a current diagnosis for this admission?: No Plan: Controlled BGL 113 -122 Continue diabetic diet, Accu-Chek, sliding scale insulin, long-acting insulin, pre-meal insulin, adjust dosage as needed. (7) Nausea & vomiting Qualifiers: Vomiting type: unspecified Vomiting Intractability: intractable Qualified Code(s): R11.2 - Nausea with vomiting, unspecified Is this a current diagnosis for this admission?: Yes Plan: Antiemetics. Supportive measures. Monitor replace electrolytes as needed. (8) Constipation Qualifiers: Constipation type: unspecified constipation type Qualified Code(s): K59.00 - Constipation, unspecified Is this a current diagnosis for this admission?: No Plan: Most likely opioid induced. Started on Amitiza. Continue bisacodyl, docusate, Fleet enema as needed. (9) Hypertension Qualifiers: Hypertension type: essential hypertension Qualified Code(s): I10 - Essential (primary) hypertension Is this a current diagnosis for this admission?: No Plan: Not controlled. 07/01/2018. SBP 139-170. T-max 98.2. Pulse 69-86. SPO2 100% on 2 L nasal cannula FiO2 28%. 07/02/2018: SBP 136-170, T-max 98.4, pulse 70-94, SPO2 97 to 102 L NC, DC amlodipine due to constipation. Increase clonidine to 0.3 MCG transdermal. (10) Hypermagnesemia Is this a current diagnosis for this admission?: Yes Plan: Likely due to worsening kidney function. Patient is not on supplemental magnesium. Continue IV diuretics, magnesium level tomorrow.
[2018-07-02 13:45] LABS: ARTERIAL BLOOD BASE EXCESS -4.5 mmol/L; ARTERIAL BLOOD H2CO3 1.18 mmol/L (1.05-1.35); ARTERIAL BLOOD HCO3 20.8 mmol/L (20-24); ARTERIAL BLOOD PCO2 39.1 mmHg (35-45); ARTERIAL BLOOD PH 7.34 (7.35-7.45); ARTERIAL BLOOD PO2 48.2 mmHg (80-100)
[2018-07-02] MEDS: IPRATROPIUM/ALBUTEROL 0.5-2.5 MG/3 ML AMPUL NEB PRN (13:45)
[2018-07-02 13:46] LABS: ARTERIAL BLOOD FIO2 6L
[2018-07-02] MEDS ORDERED: DEXTROSE 10%-WATER 1,000 ML IV PRN (15:12)
--- NOTE | 2018-07-02 17:02 | EKG REPORT ---
SEVERITY:- ABNORMAL ECG - SINUS TACHYCARDIA BORDERLINE LEFT AXIS DEVIATION NONSPECIFIC ST- CHANGES ANTEROLATERAL LEADS. : Confirmed by: Baldomero Hollis MD 02-Jul-2018 17:02:00
--- NOTE | 2018-07-02 18:06 | RADIOLOGY REPORT (SQ) ---
EXAM DESCRIPTION: NM LUNG PERFUSION SCAN COMPLETED DATE/TIME: 07/02/2018 5:53 pm REASON FOR STUDY: Hypoxia COMPARISON: None. RADIONUCLIDE AND DOSE: 5.0 millicuries TC-99m MAA The route of agent administration: Intravenous TECHNIQUE: Anterior and anterior oblique planar scintigraphic views of the chest obtained following IV administration of technetium-99m MAA LIMITATIONS: Patient body positioning, bed-bound, unable to perform ventilation FINDINGS: PERFUSION: Very limited anterior and anterior oblique planar perfusion images on bed bound patient unable to tolerate flat positioning. No obvious perfusion defect. OTHER: No other significant finding. IMPRESSION: Very limited anterior and anterior oblique planar perfusion images on bed bound patient unable to tolerate flat positioning and unable to perform ventilation imaging. Generally nondiagnost ic examination without obvious perfusion defect. Recommend CT pulmonary angiogram to further evaluat e if there is persistent suspicion for pulmonary embolism. TECHNICAL DOCUMENTATION: JOB ID: [id number] [employer]- All Rights Reserved Reading location - IP/workstation name: [email or web address]
--- NOTE | 2018-07-02 18:09 | RADIOLOGY REPORT (SQ) ---
EXAM DESCRIPTION: CHEST SINGLE VIEW COMPLETED DATE/TIME: 07/02/2018 6:00 pm REASON FOR STUDY: HYPOXIA, PT WILL BE IN [facility] FOR VQ COMPARISON: 06/28/2018 EXAM PARAMETERS: NUMBER OF VIEWS: One view. TECHNIQUE: Single frontal radiographic view of the chest acquired. RADIATION DOSE: NA LIMITATIONS: None. FINDINGS: LUNGS AND PLEURA: New right pleural effusion and heterogeneous opacity of the right lung b ase. MEDIASTINUM AND HILAR STRUCTURES: No masses. Contour normal. HEART AND VASCULAR STRUCTURES: Heart normal in size. Normal vasculature. BONES: No acute findings. HARDWARE: None in the chest. OTHER: No other significant finding. IMPRESSION: New right pleural effusion and heterogeneous opacity of the right lung base concerning f or infection or aspiration. TECHNICAL DOCUMENTATION: JOB ID: [id number] [employer]- All Rights Reserved Reading location - IP/workstation name: [email or web address]
[2018-07-02] MEDS ORDERED: CALCIUM GLUCONATE 1000 MG/10 ML INJ IV ONE ×2 (18:27→21:15)
[2018-07-02 19:11] LABS: ANION GAP 15 (5-19); CALCIUM 9.6 mg/dL (8.4-10.2); CARBON DIOXIDE 19 mmol/L (22-30); CHLORIDE 104 mmol/L (98-107); GLUCOSE 97 mg/dL (75-110); POTASSIUM 4.4 mmol/L (3.6-5.0); SODIUM 137.5 mmol/L (137-145)
[2018-07-02 19:19] LABS: BLOOD UREA NITROGEN 144 mg/dL (7-20)
[2018-07-02] MEDS: ATORVASTATIN CALCIUM 40 MG TABLET PO SCH (22:05)
[2018-07-03] MEDS: IPRATROPIUM/ALBUTEROL 0.5-2.5 MG/3 ML AMPUL NEB SCH ×4 (00:14→23:59)
[2018-07-03] MEDS: NYSTATIN/TRIAMCIN CREAM 15 GM TP SCH ×3 (05:41→22:00)
[2018-07-03] MEDS: CEFTAZIDIME PENTAHYDRATE 2 GM in DEXTROSE 5%-WATER 100 ML IV SCH (05:41)
[2018-07-03] MEDS: GABAPENTIN 100 MG CAPSULE PO SCH ×3 (05:42→23:19)
[2018-07-03 06:04] LABS: ABSOLUTE BASOPHILS # (AUTO) 0.1 10^3/uL (0.0-0.2); ABSOLUTE EOSINOPHILS # (AUTO) 0.1 10^3/uL (0.0-0.6); ABSOLUTE LYMPHOCYTES (AUTO) 1.4 10^3/uL (0.5-4.7); ABSOLUTE MONOCYTES (AUTO) 1.9 10^3/uL (0.1-1.4); ABSOLUTE NEUT (AUTO) 14.3 10^3/uL (1.7-8.2); BASOPHILS % (AUTO) 0.3 % (0-2); EOSINOPHILS % (AUTO) 0.3 % (0-6); HEMATOCRIT 26.4 % (36.0-47.0); HEMOGLOBIN 8.7 g/dL (12.0-15.5); LYMPHOCYTES % (AUTO) 7.9 % (13-45); MEAN CORPUSCULAR HEMOGLOBIN 27.9 pg (27.0-33.4); MEAN CORPUSCULAR VOLUME 85 fl (80-97); MONOCYTES % (AUTO) 10.9 % (3-13); PLATELET COUNT 312 10^3/uL (150-450); RED BLOOD COUNT 3.12 10^6/uL (3.72-5.28); RED CELL DISTRIBUTION WIDTH 14.7 % (11.5-14.0); SEGMENTED NEUTROPHILS % (AUTO) 80.6 % (42-78); TOTAL CELLS COUNTED % (AUTO) 100 %; WHITE BLOOD COUNT 17.8 10^3/uL (4.0-10.5)
[2018-07-03 06:26] LABS: ALANINE AMINOTRANSFERASE 137 U/L (9-52); ALBUMIN 2.9 g/dL (3.5-5.0); ALKALINE PHOSPHATASE 111 U/L (38-126); ANION GAP 17 (5-19); ASPARTATE AMINO TRANSFERASE 38 U/L (14-36); BILIRUBIN,DIRECT 0.5 mg/dL (0.0-0.4); BILIRUBIN,TOTAL 0.5 mg/dL (0.2-1.3); CALCIUM 9.8 mg/dL (8.4-10.2); CARBON DIOXIDE 19 mmol/L (22-30); CHLORIDE 106 mmol/L (98-107); GLUCOSE 84 mg/dL (75-110); POTASSIUM 4.3 mmol/L (3.6-5.0); SODIUM 141.7 mmol/L (137-145); TOTAL PROTEIN 6.2 g/dL (6.3-8.2)
[2018-07-03 06:33] LABS: BLOOD UREA NITROGEN 144 mg/dL (7-20)
[2018-07-03] MEDS ORDERED: DEXTROSE 10%-WATER 1,000 ML IV PRN (08:28)
[2018-07-03] MEDS ORDERED: CALCIUM GLUCONATE 1000 MG/10 ML INJ IV ONE (09:00)
[2018-07-03 09:12] LABS: ARTERIAL BLOOD BASE EXCESS -4.1 mmol/L; ARTERIAL BLOOD FIO2 4L; ARTERIAL BLOOD HCO3 21.2 mmol/L (20-24); ARTERIAL BLOOD PCO2 39.9 mmHg (35-45); ARTERIAL BLOOD PH 7.34 (7.35-7.45); ARTERIAL BLOOD PO2 73.3 mmHg (80-100); ARTERIAL BLOOD TOTAL CO2 22.5 mmol/L (21-25)
[2018-07-03] MEDS: CLOPIDOGREL BISULFATE 75 MG TABLET PO SCH (09:48)
[2018-07-03] MEDS: DOCUSATE SODIUM 100 MG CAPSULE PO SCH (09:48)
[2018-07-03] MEDS: ASPIRIN 81 MG TABLET, ENT COATED PO SCH ×2 (09:48→23:19)
[2018-07-03] MEDS: CETIRIZINE 5 MG TABLET PO SCH (09:49)
[2018-07-03] MEDS: CHOLECALCIFEROL (D3) 1,000 UNIT TABLET PO SCH (09:49)
[2018-07-03] MEDS: FONDAPARINUX SODIUM INJ 2.5 MG/0.5 ML DISP.SYRIN SUBCUT SCH (09:57)
[2018-07-03] MEDS: LUBIPROSTONE 24 MCG CAPSULE PO SCH (09:57)
[2018-07-03] MEDS: ALBUMIN HUMAN 12.5 GM/50 ML RTUINJ IV SCH ×4 (10:00→12:48)
[2018-07-03] MEDS: VANCOMYCIN HCL 500 MG in DEXTROSE 5%-WATER 100 ML IV SCH (10:01)
[2018-07-03] MEDS: INSULIN LISPRO 100 UNIT/ML 3 ML VIAL SUBCUT SCH ×2 (10:38→12:18)
--- NOTE | 2018-07-03 11:02 | PDOC PROGRESS REPORT ---
Subjective Progress Note for:: 07/03/18 Subjective:: GEORGE LAUGHLIN is a 68 year old female with a past medical history of CVA with immobility, peripheral vascular disease status post bilateral lower extremity amputation, chronic kidney disease, diabetes, chronic UTI and stage III sacral decubiti. She is brought to the emergency room for altered mental status found to have leukocytosis, acute on chronic renal failure, pyuria, 4 x 4 centimeter stage IV sacral decubiti, 2 x 3 cm stage II decubiti at the gluteal fold bilaterally. Patient admits to pain but is unable to localize. She received empiric antibiotic and refer to the hospitalist for admission. 06/30/2017. Patient has awake but very lethargic not follow commands when asked if she is in pain she says yes but does not localize, she does not seem to be in any acute distress, T-max 100, SBP 132-170. PO2 92 to 100% 2 L FiO2 28% nasal cannula. Pulse 70-80. RR 16-20. Weight 63.7 up from 60.0.5 on admission. BGL 113 -122. WBC 25.2 down from 30.6. Sodium 132.0, potassium 4.8, creatinine 2.41 baseline 2.4. Urine culture from 06/30/2018 growing MRSA. 07/01/2018. Mild improvement of her mental status, patient is alert oriented x2. Does not communicate much, stating that she is hurting in her back was no complaints. Otherwise no complaints. 07/02/2018. Patient complaining of constant back pain, nausea, abdominal pain, more alert, PEG tube still expressing fecal material, had 2 bowel movements since yesterday. Denies chest pain, shortness of breath. Was evaluated by surgery for possible debridement of stage III decubitus ulcer however upon expansion they noted that she did not have any drainable collections. 07/02/2018: SBP 136-170, T-max 98.4, pulse 70-94, SPO2 97 to 102 L NC, WBC 19.6, Plt 341, Hgb 9.4, Na 137.5, K 4.3, HC3 19, [employer] 2.24 up from 1.94, baseline 2.41. 07/03/2018. No acute events overnight, patient is still very lethargic, complaining of pain, her ABG as well as WBC have improved. SBP of 130-150. T- max 99.3, pulse 95-157, FiO2 91-97 4 L nasal cannula. I/O 360/900 -540. WBC 17.8, hemoglobin 8.7, platelet 312. ABG pH 7.34, PCO2 39.9, PO2 73.3. Odium 141.7, potassium 4.3, chloride 106, creatinine 2.47, magnesium 3.6, Reason For Visit: UTI ,DECUB SEPSIS, UREMIA Physical Exam Vital Signs: Temp Pulse Resp BP Pulse Ox 99.3 F 95 16 141/55 H 97 07/03/18 07:34 07/03/18 07:39 07/03/18 07:39 07/03/18 07:34 07/03/18 07:39 Intake & Output 07/02/18 07/03/18 07/04/18 06:59 06:59 06:59 Intake Total 260 360 222 Output Total 1900 900 Balance -1640 -540 222 Weight 64.6 kg 62.6 kg General appearance: PRESENT: morbidly obese, obese, severe distress Head exam: PRESENT: atraumatic, normocephalic Neck exam: ABSENT: carotid bruit, JVD, lymphadenopathy, thyromegaly Respiratory exam: PRESENT: clear to auscultation nicole, crackles, rhonchi. ABSENT: rales, wheezes Cardiovascular exam: PRESENT: RRR. ABSENT: diastolic murmur, rubs, systolic murmur GI/Abdominal exam: PRESENT: normal bowel sounds, soft. ABSENT: distended, guarding, mass, organolmegaly, rebound, tenderness Extremities exam: PRESENT: full ROM. ABSENT: calf tenderness, clubbing, pedal edema Skin exam: PRESENT: other - Stage III sacral ulcer, no active discharge or any collection. Results Laboratory Results: 07/03/18 05:08 07/03/18 05:08 07/02/18 07/02/18 07/02/18 10:00 13:20 18:40 WBC 19.6 H RBC 3.30 L Hgb 9.4 L Hct 27.6 L MCV 83 MCH 28.3 MCHC 33.9 RDW 14.5 H Plt Count 341 Seg Neutrophils % Not Reportable Lymphocytes % Not Reportable Monocytes % Not Reportable Eosinophils % Not Reportable Basophils % Not Reportable Absolute Neutrophils Not Reportable Absolute Lymphocytes Not Reportable Absolute Monocytes Not Reportable Absolute Eosinophils Not Reportable Absolute Basophils Not Reportable Carbonic Acid 1.18 HCO3/H2CO3 Ratio 17:1 ABG pH 7.34 L ABG pCO2 39.1 ABG pO2 48.2 L ABG HCO3 20.8 ABG O2 Saturation 82.0 L ABG Base Excess -4.5 FiO2 6L Sodium 137.5 Potassium 4.4 Chloride 104 Carbon Dioxide 19 L Anion Gap 15 BUN 144 H Creatinine 2.25 H Est GFR ( Amer) 26 L Est GFR (Non-Af Amer) 22 L Glucose 97 Calcium 9.6 Magnesium 3.5 H Total Bilirubin AST ALT Alkaline Phosphatase Total Protein Albumin 07/03/18 07/03/18 07/03/18 05:08 05:08 09:00 WBC 17.8 H RBC 3.12 L Hgb 8.7 L Hct 26.4 L MCV 85 MCH 27.9 MCHC 33.0 RDW 14.7 H Plt Count 312 Seg Neutrophils % 80.6 H Lymphocytes % 7.9 L Monocytes % 10.9 Eosinophils % 0.3 Basophils % 0.3 Absolute Neutrophils 14.3 H Absolute Lymphocytes 1.4 Absolute Monocytes 1.9 H Absolute Eosinophils 0.1 Absolute Basophils 0.1 Carbonic Acid 1.20 HCO3/H2CO3 Ratio 17:1 ABG pH 7.34 L ABG pCO2 39.9 ABG pO2 73.3 L ABG HCO3 21.2 ABG O2 Saturation 94.0 ABG Base Excess -4.1 FiO2 4L Sodium 141.7 Potassium 4.3 Chloride 106 Carbon Dioxide 19 L Anion Gap 17 BUN 144 H Creatinine 2.47 H Est GFR ( Amer) 23 L Est GFR (Non-Af Amer) 19 L Glucose 84 Calcium 9.8 Magnesium 3.6 H Total Bilirubin 0.5 AST 38 H ALT 137 H Alkaline Phosphatase 111 Total Protein 6.2 L Albumin 2.9 L 06/28/18 06/28/18 15:30 15:30 Creatine Kinase < 20 L Troponin I < 0.012 Impressions: Abdomen/Pelvis CT 07/01/18 00:00 IMPRESSION: 1. Moderate constipation. 2. Left exophytic solid renal lesion has increased in size and now measures 2.1 cm. This could represent complex cyst although a solid mass cannot be excluded. 3. Decubitus ulcer just right of midline overlying the sacrum. Inflammation extends to the level of the lower sacrum and coccyx. Bone involvement cannot be excluded. 4. Subcutaneous edema. Chest X-Ray 07/02/18 00:00 IMPRESSION: New right pleural effusion and heterogeneous opacity of the right lung base concerning for infection or aspiration. Lung Scan-[facility] 07/02/18 13:06 IMPRESSION: Very limited anterior and anterior oblique planar perfusion images on bed bound patient unable to tolerate flat positioning and unable to perform ventilation imaging. Generally nondiagnostic examination without obvious perfusion defect. Recommend CT pulmonary angiogram to further evaluate if there is persistent suspicion for pulmonary embolism. Assessment and Plan - Diagnosis (1) Acute and chronic respiratory failure with hypoxia Is this a current diagnosis for this admission?: Yes Plan: Improving. Multifcatorial, likely due to underlying pneumonia and aspiration. Not a candidate for CTA due to worsening renal function, VQ scan sub-optimal due to patient being bedbound. Continue supplemental oxygen. If PO2 drops patient will need to be intubated as she is to altered for BiPAP. Continue empiric antibiotics. 07/03/2018: ABG pH 7.34, PCO2 39.9, PO2 73.3. 07/02/2018: ABG pH 7.34, PCO2 39.1, PO2 48.2. (2) Acute encephalopathy Is this a current diagnosis for this admission?: Yes Plan: Multifactorial, most likely due to underlying infectious, worsening azotemia, narcotics and hypoxia. 07/03/2018: SBP of 130-150, T-max 99.3, HR 95-157, RR 16-20, FiO2 91-97 4 L nasal cannula. I/O 360/900 -540. WBC 17.8, hemoglobin 8.7, platelet 312. ABG pH 7.34, PCO2 39.9, PO2 73.3. Sodium 141.7, potassium 4.3, chloride 106, creatinine 2.47, magnesium 3.6, 07/02/2018: SBP 136-170, T-max 98.4, pulse 70-94, SPO2 97 to 102 L NC, WBC 19.6, platelet 341, Hgb 9.4, 137.5, potassium 4.3, bicarb 19, creatinine 2.24 up from 1.94, baseline 2.41. 07/01/2018. SBP 139-170. T-max 98.2. Pulse 69-86. SPO2 100% on 2 L nasal cannula FiO2 28%. WBC 18.2 down from 30.6 on admission, sodium 135.4, potassium 4.8, bicarbonate 17, creatinine 1.94 down from 2.54 from admission Urine culture from 06/30/2018 growing MRSA. Continue treating the underlying infectious process. Blood cultures no growth x 72 hours. (3) CKD (chronic kidney disease) stage 4, GFR 15-29 ml/min Is this a current diagnosis for this admission?: Yes Plan: Worsening stable. Electrolytes within normal limits except for magnesium. Will DC Lasix. 07/03/2018: FiO2 91-97 4 L nasal cannula. I/O 360/900 -540. ABG pH 7.34, PCO2 39.9, PO2 73.3. Sodium 141.7, potassium 4.3, chloride 106, creatinine 2.47, magnesium 3.6, 07/02/2018: Sodium 137.5, potassium 4.3, bicarb 19, creatinine 2.24 up from 1.94, baseline 2.41, Mg 3.4 down from 3.5. Fluid balance -1640. 07/01/2018. sodium 135.4, potassium 4.8, bicarbonate 17, creatinine 1.94 down from 2.54 from admission. Baseline 2.4. Urine culture from 06/30/2018 growing MRSA. BMP tomorrow. Replace electrolytes as needed. (4) Leukocytosis Qualifiers: Leukocytosis type: unspecified Qualified Code(s): D72.829 - Elevated white blood cell count, unspecified Is this a current diagnosis for this admission?: Yes Plan: Improving. Urine culture positive for MRSA. No blood culture available from admission. Continue Fortaz and Vanco Started vancomycin 06/30/2018. Total 4 days of IV antibiotics. 07/03/2018: WBC 17.8, hemoglobin 8.7, platelet 312. ABG pH 7.34, PCO2 39.9, PO2 73.3. Sodium 141.7, potassium 4.3, chloride 106, creatinine 2.47, magnesium 3.6, 07/01/2018. WBC 18.2 down from 30.6 on admission, sodium 135.4, potassium 4.8, bicarbonate 17, creatinine 1.94 down from 2.54 from admission Urine culture from 06/30/2018 growing MRSA. Patient febrile was, altered, leukocytosis on admission urine culture positive for MRSA raises a question of seeding possibly endocarditis or decubitus ulcer. 07/01/2018. 2D echo no vegetations. Ejection fraction 60%. CT pelvis constipation and decubitus ulcer inflammation extending to the sacrum. No sign of osteomyelitis. (5) Sacral decubitus ulcer, stage III Is this a current diagnosis for this admission?: No Plan: Patient has sacral decubitus stage III. Active discharge or drainage will collection. Was evaluated by surgery and at this point no drainage she will collection was observed. 07/01/2018. CT abdomen and pelvis. Moderate constipation. Decubitus ulcer just right of midline overlying the sacrum. Inflammation extends to the level of the lower sacrum and coccyx. Bone involvement cannot be excluded. (6) UTI (urinary tract infection) Qualifiers: Urinary tract infection type: acute cystitis Hematuria presence: with hematuria Qualified Code(s): N30.01 - Acute cystitis with hematuria Is this a current diagnosis for this admission?: Yes Plan: Urine culture positive for MRSA. History of recurrent E. coli sensitive UTIs. Continue Fortaz Stat blood cultures. Started vancomycin 06/30/2018. Total 4 days of IV antibiotics. Urine culture from 06/30/2018 growing MRSA. (7) Diabetes mellitus type 2 in obese Is this a current diagnosis for this admission?: No Plan: Controlled BGL 113 -122 Continue diabetic diet, Accu-Chek, sliding scale insulin, long-acting insulin, pre-meal insulin, adjust dosage as needed. (8) Nausea & vomiting Qualifiers: Vomiting type: unspecified Vomiting Intractability: intractable Qualified Code(s): R11.2 - Nausea with vomiting, unspecified Is this a current diagnosis for this admission?: Yes Plan: Antiemetics. Supportive measures. Monitor replace electrolytes as needed. (9) Constipation Qualifiers: Constipation type: unspecified constipation type Qualified Code(s): K59.00 - Constipation, unspecified Is this a current diagnosis for this admission?: No Plan: Has had 2 BM x 24 hours. Most likely opioid induced. Started on Amitiza. Continue bisacodyl, docusate, Fleet enema as needed. (10) Hypertension Qualifiers: Hypertension type: essential hypertension Qualified Code(s): I10 - Es sential (primary) hypertension Is this a current diagnosis for this admission?: No Plan: Improving. 07/03/2018: SBP of 130-150, T-max 99.3, HR 95-157, RR 16-20, FiO2 91-97 4 L nasal cannula. 07/01/2018. SBP 139-170. T-max 98.2. Pulse 69-86. SPO2 100% on 2 L nasal cannula FiO2 28%. 07/02/2018: SBP 136-170, T-max 98.4, pulse 70-94, SPO2 97 to 102 L NC, DC amlodipine due to constipation. Increase clonidine to 0.3 MCG transdermal. (11) Hypermagnesemia Is this a current diagnosis for this admission?: Yes Plan: Likely due to worsening kidney function. Patient is not on supplemental magnesium. Diuretics had to be stopped due to worsening kidney function. 1 g of IV calcium gluconate. Continue bowel regimen. Medium level tomorrow.
[2018-07-03] MEDS: HYDRALAZINE HCL INJ/PF 20 MG/1 ML SDV IV PRN (17:41)
--- NOTE | 2018-07-03 19:55 | PDOC PROGRESS REPORT ---
Subjective Progress Note for:: 07/03/18 Reason For Visit: UTI ,DECUB SEPSIS, UREMIA Physical Exam Vital Signs: Temp Pulse Resp BP Pulse Ox 99.4 F 100 20 157/62 H 100 07/03/18 16:13 07/03/18 16:13 07/03/18 16:13 07/03/18 16:13 07/03/18 16:13 Intake & Output 07/02/18 07/03/18 07/04/18 06:59 06:59 06:59 Intake Total 260 360 468 Output Total 1900 900 500 Balance -1640 -540 -32 Weight 64.6 kg 62.6 kg Exam: Partial debridement of necrotic skin at sacral decubitus area done at bedside in the presence of patient's son. No abscess underneath. Results Laboratory Results: 07/03/18 05:08 07/03/18 05:08 07/03/18 07/03/18 07/03/18 05:08 05:08 09:00 WBC 17.8 H RBC 3.12 L Hgb 8.7 L Hct 26.4 L MCV 85 MCH 27.9 MCHC 33.0 RDW 14.7 H Plt Count 312 Seg Neutrophils % 80.6 H Lymphocytes % 7.9 L Monocytes % 10.9 Eosinophils % 0.3 Basophils % 0.3 Absolute Neutrophils 14.3 H Absolute Lymphocytes 1.4 Absolute Monocytes 1.9 H Absolute Eosinophils 0.1 Absolute Basophils 0.1 Carbonic Acid 1.20 HCO3/H2CO3 Ratio 17:1 ABG pH 7.34 L ABG pCO2 39.9 ABG pO2 73.3 L ABG HCO3 21.2 ABG O2 Saturation 94.0 ABG Base Excess -4.1 FiO2 4L Sodium 141.7 Potassium 4.3 Chloride 106 Carbon Dioxide 19 L Anion Gap 17 BUN 144 H Creatinine 2.47 H Est GFR ( Amer) 23 L Est GFR (Non-Af Amer) 19 L Glucose 84 Calcium 9.8 Magnesium 3.6 H Total Bilirubin 0.5 AST 38 H ALT 137 H Alkaline Phosphatase 111 Ammonia Total Protein 6.2 L Albumin 2.9 L 07/03/18 15:10 WBC RBC Hgb Hct MCV MCH MCHC RDW Plt Count Seg Neutrophils % Lymphocytes % Monocytes % Eosinophils % Basophils % Absolute Neutrophils Absolute Lymphocytes Absolute Monocytes Absolute Eosinophils Absolute Basophils Carbonic Acid HCO3/H2CO3 Ratio ABG pH ABG pCO2 ABG pO2 ABG HCO3 ABG O2 Saturation ABG Base Excess FiO2 Sodium Potassium Chloride Carbon Dioxide Anion Gap BUN Creatinine Est GFR ( Amer) Est GFR (Non-Af Amer) Glucose Calcium Magnesium Total Bilirubin AST ALT Alkaline Phosphatase Ammonia 10.6 Total Protein Albumin 06/28/18 06/28/18 15:30 15:30 Creatine Kinase < 20 L Troponin I < 0.012 Impressions: Abdomen/Pelvis CT 07/01/18 00:00 IMPRESSION: 1. Moderate constipation. 2. Left exophytic solid renal lesion has increased in size and now measures 2.1 cm. This could represent complex cyst although a solid mass cannot be excluded. 3. Decubitus ulcer just right of midline overlying the sacrum. Inflammation extends to the level of the lower sacrum and coccyx. Bone involvement cannot be excluded. 4. Subcutaneous edema. Chest X-Ray 07/02/18 00:00 IMPRESSION: New right pleural effusion and heterogeneous opacity of the right lung base concerning for infection or aspiration. [facility] 07/02/18 13:06 IMPRESSION: Very limited anterior and anterior oblique planar perfusion images on bed bound patient unable to tolerate flat positioning and unable to perform ventilation imaging. Generally nondiagnostic examination without obvious perfusion defect. Recommend CT pulmonary angiogram to further evaluate if there is persistent suspicion for pulmonary embolism. Assessment & Plan - Diagnosis (1) sacral decube stage 3 Is this a current diagnosis for this admission?: Yes - Time Time Spent with patient: 15-24 minutes - Plan Summary Plan Summary: D/W patient's son re code status. His mother would like to be resuscitated Mentioned the difficulty of healing this decubitus. Nurses are trying their best to turn pt to sides q 3 hrs and despite this has extended erythematous area towards the sacral side. Will sign off Call for any questions
[2018-07-03 20:20] LABS: INTERNATIONAL RATION (INR) 1.37
[2018-07-03 20:24] LABS: PROTHROMBIN TIME 17.6 SEC (11.4-15.4)
[2018-07-03 20:25] LABS: HEMATOCRIT 27.6 % (36.0-47.0); HEMOGLOBIN 8.7 g/dL (12.0-15.5); MEAN CORPUSCULAR HEMOGLOBIN 27.5 pg (27.0-33.4); MEAN CORPUSCULAR HGB CONC 31.4 g/dL (32.0-36.0); MEAN CORPUSCULAR VOLUME 88 fl (80-97); PLATELET COUNT 355 10^3/uL (150-450); RED BLOOD COUNT 3.15 10^6/uL (3.72-5.28); WHITE BLOOD COUNT 21.9 10^3/uL (4.0-10.5)
[2018-07-03 20:37] LABS: ARTERIAL BLOOD BASE EXCESS -7.4 mmol/L; ARTERIAL BLOOD FIO2 80%; ARTERIAL BLOOD H2CO3 1.37 mmol/L (1.05-1.35); ARTERIAL BLOOD HCO3 19.4 mmol/L (20-24); ARTERIAL BLOOD O2 SATURATION 99.1 % (94-98); ARTERIAL BLOOD PCO2 45.5 mmHg (35-45); ARTERIAL BLOOD PH 7.25 (7.35-7.45); ARTERIAL BLOOD PO2 192.2 mmHg (80-100); ARTERIAL BLOOD TOTAL CO2 20.8 mmol/L (21-25)
[2018-07-03 20:39] LABS: ALANINE AMINOTRANSFERASE 374 U/L (9-52); ALBUMIN 3.4 g/dL (3.5-5.0); ALKALINE PHOSPHATASE 102 U/L (38-126); ASPARTATE AMINO TRANSFERASE 451 U/L (14-36); BILIRUBIN,DIRECT 0.5 mg/dL (0.0-0.4); BILIRUBIN,TOTAL 0.5 mg/dL (0.2-1.3); CALCIUM 10.3 mg/dL (8.4-10.2); GLUCOSE 162 mg/dL (75-110); PHOSPHORUS 5.9 mg/dL (2.5-4.5); TOTAL PROTEIN 6.5 g/dL (6.3-8.2)
[2018-07-03 20:44] LABS: CARBON DIOXIDE 18 mmol/L (22-30); CHLORIDE 105 mmol/L (98-107); SODIUM 144.2 mmol/L (137-145)
[2018-07-03 20:46] LABS: ANION GAP 21 (5-19); BLOOD UREA NITROGEN 143 mg/dL (7-20)
[2018-07-03 20:47] LABS: ABSOLUTE LYMPHOCYTES# (MANUAL) 3.7 10^3/uL (0.5-4.7); ABSOLUTE MONOCYTES # (MANUAL) 1.3 10^3/uL (0.1-1.4); BAND NEUTROPHILS % (MANUAL) 2 % (3-5); BASOPHILS % (MANUAL) 0 % (0-2); LYMPHOCYTES % (MANUAL) 17 % (13-45); MONOCYTES % (MANUAL) 6 % (3-13); TOTAL CELLS COUNTED 100
[2018-07-03 20:49] LABS: ABSOLUTE NEUTROPHILS# (MANUAL) 16.6 10^3/uL (1.7-8.2); ANISOCYTOSIS SLIGHT; EOSINOPHILS % (MANUAL) 1 % (0-6); HYPOCHROMASIA SLIGHT; POIKILOCYTOSIS SLIGHT; SEGMENTED NEUTROPHILS % (MAN) 72 % (42-78)
[2018-07-03 20:50] LABS: PLATELET COMMENT ADEQUATE
[2018-07-03 20:51] LABS: METAMYELOCYTES % (MANUAL) 1 % (0); MYELOCYTES % (MANUAL) 1 % (0)
--- NOTE | 2018-07-03 20:53 | RADIOLOGY REPORT (SQ) ---
XR CHEST 1 VIEW CLINICAL STATEMENT: intubated COMPARISON: 07/02/2018 FINDINGS: Heart is moderately enlarged. Endotracheal tube is in place with tip about 1 cm above the perlita. Chest tubes are in place. Enteric tube is in place with tip below the diaphragm in the stomach. The heart is moderately enlarged. No pneumothorax. No pulmonary edema. No pleural effusions. IMPRESSION: Endotracheal tube in place. Aeration of the lungs is improved.
[2018-07-03 20:59] LABS: CREATINE KINASE MB 4.98 ng/mL (<4.55); TROPONIN I 0.078 ng/mL
--- NOTE | 2018-07-03 21:35 | EKG REPORT ---
SEVERITY:- ABNORMAL ECG - SINUS RHYTHM RBBB AND LAFB : Confirmed by: Baldomero Hollis MD 03-Jul-2018 21:34:01
--- NOTE | 2018-07-03 22:43 | RADIOLOGY REPORT (SQ) ---
EXAM DESCRIPTION: CT HEAD WITHOUT IV CONTRAST COMPLETED DATE/TME: 07/03/2018 00:00 CLINICAL HISTORY: 68 years, Female, ams COMPARISON: Prior MR brain from 03/28/2018 TECHNIQUE: Noncontrast CT of the head was performed. Coronal and sagittal reformations were created. Images stored on PACS. All CT scanners at this facility use dose modulation, iterative reconstruction, and/or weight based dosing when appropriate to reduce radiation dose to as low as reasonably achievable (ALARA). [facility]: Dose Right [facility]: CareDose [facility]: Dose Right [facility]: Teradose 4D [facility]: CoreDial LIMITATIONS: None. FINDINGS: Evaluation of the brain parenchyma reveals mild periventricular and patchy subcortical white matter low attenuation. A few more focal areas of hypodensity are noted about the left thalamus as well as the bilateral lentiform nuclei, indicating remote lacunar infarcts. No acute intracranial hemorrhage, mass effect, or extra-axial fluid is seen. The ventricles and sulcal spaces are mildly enlarged. Globes and orbits show no acute abnormality. Mild mucosal thickening is noted about the sphenoid cellules. Remaining paranasal sinuses and mastoid air cells are clear. Calcifications are evident about the parasellar carotid arteries. There are no depressed skull fractures. However, the calvarium demonstrates a heterogenous attenuation, unchanged from the previous exam dated 03/28/2016. IMPRESSION: No acute intracranial hemorrhage or mass effect. Mild chronic microvascular ischemic change and generalized atrophy. Remote lacunar infarcts about the bilateral lentiform nuclei and left thalamus. TECHNICAL DOCUMENTATION: Quality ID # [id number]: Final reports with documentation of one or more dose reduction techniques (e.g., Automated exposure control, adjustment of the mA and/or kV according to patient size, use of iterative reconstruction technique) copyright 2011 [email or web address]- All Rights Reserved
--- NOTE | 2018-07-03 22:50 | OPERATIVE REPORT E ---
Operative Report NAME: GEORGE LAUGHLIN : 1950 AGE: 68Y DATE OF SURGERY: 07/03/2018 ROOM: 309 PREOPERATIVE DIAGNOSIS: DECUBITUS ULCER OF THE SACROCOCCYGEAL AREA. POSTOPERATIVE DIAGNOSIS: DECUBITUS ULCER OF THE SACROCOCCYGEAL AREA. PROCEDURE: Debridement of one necrotic area in the coccygeal decubitus area. SURGEON: VINOD QUINTANILLA M.D. DESCRIPTION OF PROCEDURE: The patient was placed in the left lateral decubitus position and sacral decubitus area identified. There is a small area of necrosis of the skin and this was sharply debrided. Minimal amount of bleeding noted. No evidence of collection underneath. This was done under the presence of the patient's son. The patient has further erythematous area towards the sacral side since seen 2 days ago. The patient tolerated the procedure well. A sterile 4 x 4 and covered with Allevyn dressing was placed. The procedure was done with the use of an 11 blade and the full thickness of the skin was removed but nothing underneath. DICTATING PHYSICIAN: VINOD QUINTANILLA M.D. [id number] PHY#: [id number] ID: [id number] JOB#: [id number] ACCT: [id number] cc:VINOD QUINTANILLA M.D. >
[2018-07-03] MEDS ORDERED: NA PHOS,M-B/NA PHOS,DI-BA (ADULT) 133 ML ENEMA PR ONE (23:00)
[2018-07-03] MEDS: ATORVASTATIN CALCIUM 40 MG TABLET PO SCH (23:19)
[2018-07-03] MEDS ORDERED: LACTULOSE SYRUP 20 GM/30 ML UDCUP PEG ONE (23:45)
[2018-07-04] MEDS: PROPOFOL 1,000 MG/100 ML INFUS..BTL IV PRN ×2 (00:23→17:49)
[2018-07-04] MEDS: INSULIN LISPRO 100 UNIT/ML 3 ML VIAL SUBCUT SCH ×5 (00:32→22:08)
[2018-07-04 02:52] LABS: HEMOGLOBIN 8.5 g/dL (12.0-15.5); MEAN CORPUSCULAR HEMOGLOBIN 27.4 pg (27.0-33.4); MEAN CORPUSCULAR HGB CONC 32.8 g/dL (32.0-36.0); PLATELET COUNT 286 10^3/uL (150-450); RED BLOOD COUNT 3.11 10^6/uL (3.72-5.28); RED CELL DISTRIBUTION WIDTH 14.4 % (11.5-14.0); WHITE BLOOD COUNT 21.9 10^3/uL (4.0-10.5)
[2018-07-04] MEDS ORDERED: NORMAL SALINE 1000 ML 1,000 ML IV SCH (03:00)
[2018-07-04 03:02] LABS: MEAN CORPUSCULAR VOLUME 84 fl (80-97)
[2018-07-04 03:03] LABS: ALANINE AMINOTRANSFERASE 335 U/L (9-52); ALBUMIN 3.3 g/dL (3.5-5.0); ALKALINE PHOSPHATASE 93 U/L (38-126); ANION GAP 14 (5-19); ASPARTATE AMINO TRANSFERASE 319 U/L (14-36); BILIRUBIN,DIRECT 0.6 mg/dL (0.0-0.4); BILIRUBIN,TOTAL 0.6 mg/dL (0.2-1.3); CARBON DIOXIDE 19 mmol/L (22-30); CHLORIDE 109 mmol/L (98-107); GLUCOSE 122 mg/dL (75-110); SODIUM 141.7 mmol/L (137-145); TOTAL PROTEIN 6.4 g/dL (6.3-8.2)
[2018-07-04] MEDS: FENTANYL CITRATE INJ/PF 100 MCG/2 ML AMPUL IV PRN (03:05)
[2018-07-04 03:13] LABS: ABSOLUTE LYMPHOCYTES# (MANUAL) 0.9 10^3/uL (0.5-4.7); ABSOLUTE MONOCYTES # (MANUAL) 1.5 10^3/uL (0.1-1.4); ABSOLUTE NEUTROPHILS# (MANUAL) 19.3 10^3/uL (1.7-8.2); BASOPHILS % (MANUAL) 1 % (0-2); BLOOD UREA NITROGEN 139 mg/dL (7-20); EOSINOPHILS % (MANUAL) 0 % (0-6); LYMPHOCYTES % (MANUAL) 4 % (13-45); MONOCYTES % (MANUAL) 7 % (3-13); MYELOCYTES % (MANUAL) 1 % (0); SEGMENTED NEUTROPHILS % (MAN) 85 % (42-78); TOTAL CELLS COUNTED 100
[2018-07-04 03:14] LABS: CREATINE KINASE MB 6.58 ng/mL (<4.55); PLATELET COMMENT ADEQUATE; POTASSIUM 3.6 mmol/L (3.6-5.0)
[2018-07-04 03:17] LABS: ANISOCYTOSIS SLIGHT; HYPOCHROMASIA SLIGHT
[2018-07-04 03:18] LABS: METAMYELOCYTES % (MANUAL) 2 % (0)
[2018-07-04 03:22] LABS: TROPONIN I 0.158 ng/mL
[2018-07-04 04:51] LABS: ARTERIAL BLOOD BASE EXCESS -1.7 mmol/L; ARTERIAL BLOOD H2CO3 1.07 mmol/L (1.05-1.35); ARTERIAL BLOOD HCO3 22.5 mmol/L (20-24); ARTERIAL BLOOD O2 SATURATION 88.3 % (94-98); ARTERIAL BLOOD PCO2 35.4 mmHg (35-45); ARTERIAL BLOOD PH 7.42 (7.35-7.45); ARTERIAL BLOOD PO2 52.8 mmHg (80-100); ARTERIAL BLOOD TOTAL CO2 23.6 mmol/L (21-25)
[2018-07-04 04:52] LABS: ARTERIAL BLOOD FIO2 30%
[2018-07-04] MEDS: NYSTATIN/TRIAMCIN CREAM 15 GM TP SCH ×3 (05:12→23:36)
[2018-07-04] MEDS: GABAPENTIN 100 MG CAPSULE PO SCH ×3 (05:12→21:38)
[2018-07-04] MEDS ORDERED: CEFTAZIDIME INJ 1 GM VIAL ONE (05:13)
[2018-07-04] MEDS: IPRATROPIUM/ALBUTEROL 0.5-2.5 MG/3 ML AMPUL NEB SCH ×2 (08:27→16:17)
[2018-07-04] MEDS: CEFTAZIDIME PENTAHYDRATE 2 GM in DEXTROSE 5%-WATER 100 ML IV SCH (09:02)
--- NOTE | 2018-07-04 09:12 | PDOC PROGRESS REPORT ---
Subjective Progress Note for:: 07/04/18 Subjective:: 68 year old female with a past medical history of CVA with immobility, peripheral vascular disease status post bilateral lower extremity amputation, chronic kidney disease, diabetes, chronic UTI and stage III sacral decubiti. She is brought to the emergency room for altered mental status found to have leukocytosis, acute on chronic renal failure, pyuria, 4 x 4 centimeter stage IV sacral decubiti, 2 x 3 cm stage II decubiti at the gluteal fold bilaterally. Patient admits to pain but is unable to localize. She received empiric antibiotic and refer to the hospitalist for admission. 07/04/2018-patient was brought to the ICU last night she has PEA ,status post resuscitation lasted for less than a minute she was given EPI and intubated. EKG shows questionable new RBBB. Troponin went up to 0.158 may be because of the resuscitation effort. Patient is presently on 30% oxygen pH is 7.42/PO2 35 PCO2 52 oxygen saturation is 88%. Patient is presently on propofol. Sedated. Nurses noticing fecal-like matter coming through the NG tube. Patient is severely constipated she was started on soapsuds enemas yesterday. And has a PEG tube. She has also has a stage III sacral decubitus and also stage III wound on the lateral aspect of the right upper thigh. Presently WBC count is 21,900 on vancomycin and Fortaz. Blood sugars are dropping to 75 to start on a D5 today to prevent hypoglycemic episodes. CT head done last night shows mild microvascular changes. On examination right eye pupil is dilated mildly reactive. Left pupil is reacting well. Unable to do neuro examination because patient is sedated. Reason For Visit: UTI ,DECUB SEPSIS, UREMIA Physical Exam Vital Signs: Temp Pulse Resp BP Pulse Ox 97.7 F 88 12 142/74 H 100 07/04/18 08:00 07/04/18 08:28 07/04/18 08:28 07/04/18 08:00 07/04/18 08:28 Intake & Output 07/03/18 07/04/18 07/05/18 06:59 06:59 06:59 Intake Total 360 473 Output Total 900 1650 50 Balance -540 -1177 -50 Weight 62.6 kg 58.6 kg General appearance: PRESENT: other - Intubated under sedation. Head exam: PRESENT: atraumatic Eye exam: PRESENT: other - Right pupil was dilated and slightly reactive left legs equal reacting well to the light. Mouth exam: PRESENT: moist, tongue midline Teeth exam: PRESENT: poor dentation Neck exam: ABSENT: carotid bruit, JVD, lymphadenopathy, thyromegaly Respiratory exam: PRESENT: decreased breath sounds Cardiovascular exam: PRESENT: systolic murmur, tachycardia GI/Abdominal exam: PRESENT: other - Bowel sounds are present PEG tube in place she has NG tube in place draining dark material. Rectal exam: PRESENT: deferred Gentrourinary exam: PRESENT: indwelling catheter Extremities exam: PRESENT: other - Patient is a bilateral amputee one leg is below the knee of the leg is about the knee amputation Neurological exam: PRESENT: other - Intubated under sedation. Results Laboratory Results: 07/04/18 02:38 07/04/18 02:38 07/03/18 07/03/18 07/03/18 09:00 15:10 20:05 WBC 21.9 H RBC 3.15 L Hgb 8.7 L Hct 27.6 L MCV 88 MCH 27.5 MCHC 31.4 L RDW 15.0 H Plt Count 355 Seg Neutrophils % Not Reportable Lymphocytes % Not Reportable Monocytes % Not Reportable Eosinophils % Not Reportable Basophils % Not Reportable Absolute Neutrophils Not Reportable Absolute Lymphocytes Not Reportable Absolute Monocytes Not Reportable Absolute Eosinophils Not Reportable Absolute Basophils Not Reportable Carbonic Acid 1.20 HCO3/H2CO3 Ratio 17:1 ABG pH 7.34 L ABG pCO2 39.9 ABG pO2 73.3 L ABG HCO3 21.2 ABG O2 Saturation 94.0 ABG Base Excess -4.1 FiO2 4L Sodium Potassium Chloride Carbon Dioxide Anion Gap BUN Creatinine Est GFR ( Amer) Est GFR (Non-Af Amer) Glucose Calcium Phosphorus Magnesium Total Bilirubin AST ALT Alkaline Phosphatase Ammonia 10.6 Total Protein Albumin 07/03/18 07/03/18 07/03/18 20:05 20:05 20:30 WBC RBC Hgb Hct MCV MCH MCHC RDW Plt Count Seg Neutrophils % Lymphocytes % Monocytes % Eosinophils % Basophils % Absolute Neutrophils Absolute Lymphocytes Absolute Monocytes Absolute Eosinophils Absolute Basophils Carbonic Acid 1.37 H HCO3/H2CO3 Ratio 14:1 ABG pH 7.25 L ABG pCO2 45.5 H ABG pO2 192.2 H ABG HCO3 19.4 L ABG O2 Saturation 99.1 H ABG Base Excess -7.4 FiO2 80% Sodium 144.2 Potassium 5.0 Chloride 105 Carbon Dioxide 18 L Anion Gap 21 H BUN 143 H Creatinine 2.45 H Est GFR ( Amer) 24 L Est GFR (Non-Af Amer) 19 L Glucose 162 H Calcium 10.3 H Phosphorus 5.9 H Magnesium 3.9 H 3.9 H Total Bilirubin 0.5 AST 451 H ALT 374 H Alkaline Phosphatase 102 Ammonia Total Protein 6.5 Albumin 3.4 L 07/04/18 07/04/18 07/04/18 02:38 02:38 04:40 WBC 21.9 H RBC 3.11 L Hgb 8.5 L Hct 26.0 L MCV 84 D MCH 27.4 MCHC 32.8 RDW 14.4 H Plt Count 286 Seg Neutrophils % Not Reportable Lymphocytes % Not Reportable Monocytes % Not Reportable Eosinophils % Not Reportable Basophils % Not Reportable Absolute Neutrophils Not Reportable Absolute Lymphocytes Not Reportable Absolute Monocytes Not Reportable Absolute Eosinophils Not Reportable Absolute Basophils Not Reportable Carbonic Acid 1.07 HCO3/H2CO3 Ratio 21:1 ABG pH 7.42 ABG pCO2 35.4 ABG pO2 52.8 L ABG HCO3 22.5 ABG O2 Saturation 88.3 L ABG Base Excess -1.7 FiO2 30% Sodium 141.7 Potassium 3.6 D Chloride 109 H Carbon Dioxide 19 L Anion Gap 14 BUN 139 H Creatinine 2.28 H Est GFR ( Amer) 26 L Est GFR (Non-Af Amer) 21 L Glucose 122 H Calcium 10.0 Phosphorus Magnesium 3.5 H Total Bilirubin 0.6 AST 319 H ALT 335 H Alkaline Phosphatase 93 Ammonia Total Protein 6.4 Albumin 3.3 L 06/28/18 06/28/18 07/03/18 15:30 15:30 20:05 Creatine Kinase < 20 L 76 CK-MB (CK-2) Troponin I < 0.012 07/03/18 07/04/18 07/04/18 20:05 02:38 02:38 Creatine Kinase 83 CK-MB (CK-2) 4.98 H 6.58 H Troponin I 0.078 0.158 Impressions: Abdomen/Pelvis CT 07/01/18 00:00 IMPRESSION: 1. Moderate constipation. 2. Left exophytic solid renal lesion has increased in size and now measures 2.1 cm. This could represent complex cyst although a solid mass cannot be excluded. 3. Decubitus ulcer just right of midline overlying the sacrum. Inflammation extends to the level of the lower sacrum and coccyx. Bone involvement cannot be excluded. 4. Subcutaneous edema. Lung Scan-VQ NM 07/02/18 13:06 IMPRESSION: Very limited anterior and anterior oblique planar perfusion images on bed bound patient unable to tolerate flat positioning and unable to perform ventilation imaging. Generally nondiagnostic examination without obvious perfusion defect. Recommend CT pulmonary angiogram to further evaluate if there is persistent suspicion for pulmonary embolism. Chest X-Ray 07/03/18 00:00 IMPRESSION: Endotracheal tube in place. Aeration of the lungs is improved. Head CT 07/03/18 00:00 IMPRESSION: No acute intracranial hemorrhage or mass effect. Mild chronic microvascular ischemic change and generalized atrophy. Remote lacunar infarcts about the bilateral lentiform nuclei and left thalamus. TECHNICAL DOCUMENTATION: Quality ID # [id number]: Final reports with documentation of one or more dose reduction techniques (e.g., Automated exposure control, adjustment of the mA and/or kV according to patient size, use of iterative reconstruction technique) copyright 2010 [email or web address]- All Rights Reserved Assessment and Plan - Diagnosis (1) CKD (chronic kidney disease) stage 4, GFR 15-29 ml/min Is this a current diagnosis for this admission?: Yes Plan: Worsening stable. Electrolytes within normal limits except for magnesium. Will DC Lasix. 07/03/2018: FiO2 91-97 4 L nasal cannula. I/O 360/900 -540. ABG pH 7.34, PCO2 39.9, PO2 73.3. Sodium 141.7, potassium 4.3, chloride 106, creatinine 2.47, magnesium 3.6, 07/02/2018: Sodium 137.5, potassium 4.3, bicarb 19, creatinine 2.24 up from 1.94, baseline 2.41, Mg 3.4 down from 3.5. Fluid balance -1640. 07/01/2018. sodium 135.4, potassium 4.8, bicarbonate 17, creatinine 1.94 down from 2.54 from admission. Baseline 2.4. Urine culture from 06/30/2018 growing MRSA. BMP tomorrow. Replace electrolytes as needed. 07/04/2018-patient has a stage IV kidney disease creatinine 2 days at 2.28 baseline creatinine is around 2.4. Urine cultures are showing MRSA. Presently on Fortaz and vancomycin. Potassium is 3.6 stable bicarb is 19. Serum sodium is 141.9. Hyponatremia may be secondary to poor oral intake secondary to intubation. Plan is to repeat the labs tomorrow. Patient has a negative fluid balance of 1100 mL. (2) Leukocytosis Qualifiers: Leukocytosis type: unspecified Qualified Code(s): D72.829 - Elevated white blood cell count, unspecified Is this a current diagnosis for this admission?: Yes Plan: Improving. Urine culture positive for MRSA. No blood culture available from admission. Continue Fortaz and Vanco Started vancomycin 06/30/2018. Total 4 days of IV antibiotics. 07/03/2018: WBC 17.8, hemoglobin 8.7, platelet 312. ABG pH 7.34, PCO2 39.9, PO2 73.3. Sodium 141.7, potassium 4.3, chloride 106, creatinine 2.47, magnesium 3.6, 07/01/2018. WBC 18.2 down from 30.6 on admission, sodium 135.4, potassium 4.8, bicarbonate 17, creatinine 1.94 down from 2.54 from admission Urine culture from 06/30/2018 growing MRSA. Patient febrile was, altered, leukocytosis on admission urine culture positive for MRSA raises a question of seeding possibly endocarditis or decubitus ulcer. 07/01/2018. 2D echo no vegetations. Ejection fraction 60%. CT pelvis constipation and decubitus ulcer inflammation extending to the sacrum. No sign of osteomyelitis. 07/04/2018-WBC count is 21,900 today. Presently on Fortaz and vancomycin. Urine culture shows MRSA. Blood cultures are negative. T-max is 99.1 today. She has a sacral decubiti and also decubitus ulcer on the right thigh. Echocardiogram was done EF is 60% no evidence of any vegetation no suspicion for vegetation. CT pelvis shows constipation under decubitus ulcer inflammation extending to the sacrum but no signs of osteomyelitis. Plan is to continue the present management. (3) Acute encephalopathy Is this a current diagnosis for this admission?: Yes Plan: Multifactorial, most likely due to underlying infectious, worsening azotemia, narcotics and hypoxia. 07/03/2018: SBP of 130-150, T-max 99.3, HR 95-157, RR 16-20, FiO2 91-97 4 L nasal cannula. I/O 360/900 -540. WBC 17.8, hemoglobin 8.7, platelet 312. ABG pH 7.34, PCO2 39.9, PO2 73.3. Sodium 141.7, potassium 4.3, chloride 106, creatinine 2.47, magnesium 3.6, 07/02/2018: SBP 136-170, T-max 98.4, pulse 70-94, SPO2 97 to 102 L NC, WBC 19.6, platelet 341, Hgb 9.4, 137.5, potassium 4.3, bicarb 19, creatinine 2.24 up from 1.94, baseline 2.41. 07/01/2018. SBP 139-170. T-max 98.2. Pulse 69-86. SPO2 100% on 2 L nasal cannula FiO2 28%. WBC 18.2 down from 30.6 on admission, sodium 135.4, potassium 4.8, bicarbonate 17, creatinine 1.94 down from 2.54 from admission Urine culture from 06/30/2018 growing MRSA. Continue treating the underlying infectious process. Blood cultures no growth x 72 hours. 07/04/2018-patient admitted with altered mental status and sepsis. Presently intubated on sedation. Unable to assisted neuro evaluation. Acute encephalopathy/altered mental status most likely multifactorial including sepsis and electrolyte abnormalities. (4) Diabetes Qualifiers: Diabetes mellitus superintendent terminal insulin use: with penitentiary use Diabetes mellitus complication status: with kidney complications Chronic kidney disease stage: stage 4 (severe) Is this a current diagnosis for this admission?: No Plan: 06/29/2018-patient has a history of type 2 diabetes mellitus. Plan to start her on insulin sliding scale. Patient is not on diabetic medications at home. diatery consult is going to be requested and to check for hemoglobin A1c tomorrow. 07/04/2018-patient has a history of type 2 diabetes nurses also insulin sliding scale is n.p.o. we will under intubated. Plan to start her on D5 half-normal saline because blood sugars are dropping to 75 this morning. (5) UTI (urinary tract infection) Qualifiers: Urinary tract infection type: acute cystitis Hematuria presence: with hematuria Qualified Code(s): N30.01 - Acute cystitis with hematuria Is this a current diagnosis for this admission?: Yes Plan: Urine culture positive for MRSA. History of recurrent E. coli sensitive UTIs. Continue Fortaz Stat blood cultures. Started vancomycin 06/30/2018. Total 4 days of IV antibiotics. Urine culture from 06/30/2018 growing MRSA. 07/04/2018-urine cultures positive for MRSA patient has history of recurrent E. coli's causing urinary tract infection. Present on Fortaz and vancomycin. Blood cultures are negative. Plan is to continue the present management. (6) Sacral decubitus ulcer, stage III Is this a current diagnosis for this admission?: No Plan: Patient has sacral decubitus stage III. Active discharge or drainage will collection. Was evaluated by surgery and at this point no drainage she will collection was observed. 07/01/2018. CT abdomen and pelvis. Moderate constipation. Decubitus ulcer just right of midline overlying the sacrum. Inflammation extends to the level of the lower sacrum and coccyx. Bone involvement cannot be excluded. 07/04/2018-patient has a decubitus ulcer over the sacrum and she has also decubitus ulcer on the lateral aspect of the right upper thigh. Present on Fortaz and vancomycin surgical team signed off on her yesterday. (7) Acute and chronic respiratory failure with hypoxia Is this a current diagnosis for this admission?: Yes Plan: Improving. Multifcatorial, likely due to underlying pneumonia and aspiration. Not a candidate for CTA due to worsening renal function, VQ scan sub-optimal due to patient being bedbound. Continue supplemental oxygen. If PO2 drops patient will need to be intubated as she is to altered for BiPAP. Continue empiric antibiotics. 07/03/2018: ABG pH 7.34, PCO2 39.9, PO2 73.3. 07/02/2018: ABG pH 7.34, PCO2 39.1, PO2 48.2. 07/04/2018-patient was transferred to ICU last night because of pulseless electrical activity status post resuscitation for less than a minute she was intubated during the process ABG had 30% oxygen he is pH 7.42 PCO2 35 PO2 52 oxygen saturation is 88.5. Plan is to continue to keep her intubated underscore keep it under sedation/ consultation with Dr. Escobar is going to be requested. plan to repeat the ABG in the morning. (8) PEA (Pulseless electrical activity) Is this a current diagnosis for this admission?: Yes Plan: 07/04/2018-patient has pulseless electrical activity last night transferred to ICU status post intubation. Resuscitation lasted less than a minute. She was given EPI. Patient is intubated at this moment blood pressure is 157/62 heart rate is around 100. cause is unknown at this point. - Time Time Spent with patient: 25-34 minutes Medications reviewed and adjusted accordingly: Yes Anticipated discharge: SNF
[2018-07-04 10:08] LABS: VANCOMYCIN,TROUGH 17.3 ug/mL (5.0-20.0)
[2018-07-04] MEDS: CLOPIDOGREL BISULFATE 75 MG TABLET PO SCH (10:09)
[2018-07-04] MEDS: CHOLECALCIFEROL (D3) 1,000 UNIT TABLET PO SCH (10:09)
[2018-07-04] MEDS: FONDAPARINUX SODIUM INJ 2.5 MG/0.5 ML DISP.SYRIN SUBCUT SCH (10:10)
[2018-07-04] MEDS: ASPIRIN 81 MG TABLET, ENT COATED PO SCH ×2 (10:10→21:38)
--- NOTE | 2018-07-04 10:10 | RADIOLOGY REPORT (SQ) ---
EXAM DESCRIPTION: KUB/ABDOMEN (SINGLE VIEW) COMPLETED DATE/TIME: 07/04/2018 9:53 am REASON FOR STUDY: severe constipation/ileus COMPARISON: CT abdomen pelvis 07/01/2018 NUMBER OF VIEWS: One view. TECHNIQUE: Supine radiographic image of the abdomen acquired. LIMITATIONS: None. FINDINGS: BOWEL GAS PATTERN: Massive amount of stool throughout the entire colon. No dilated small bowel loops. Gastrostomy tube in the left upper quadrant. CALCIFICATIONS: No suspicious calcifications. SOFT TISSUES: No gross mass or suggestion of organomegaly. HARDWARE: Carrillo catheter in the bladder. Gastrostomy tube in the left upper quadrant. Clips right u pper quadrant post cholecystectomy. Old left proximal common femoral artery stent BONES: Osteoporotic OTHER: No other significant finding. IMPRESSION: Massive amount of stool throughout the colon. TECHNICAL DOCUMENTATION: JOB ID: [id number] [employer]- All Rights Reserved Reading location - IP/workstation name: [email or web address]
[2018-07-04] MEDS: DOCUSATE SODIUM 100 MG CAPSULE PO SCH (10:11)
[2018-07-04] MEDS: NA PHOS,M-B/NA PHOS,DI-BA (ADULT) 133 ML ENEMA PR SCH ×2 (10:11→22:06)
[2018-07-04 10:21] LABS: CREATINE KINASE MB 5.94 ng/mL (<4.55); TROPONIN I 0.273 ng/mL
[2018-07-04] MEDS: LUBIPROSTONE 24 MCG CAPSULE PO SCH (11:55)
[2018-07-04] MEDS: CETIRIZINE 5 MG TABLET PO SCH (11:55)
[2018-07-04] MEDS ORDERED: EPINEPHRINE INJ 1 MG/10 ML DISP.SYRIN ONE (12:38)
[2018-07-04] MEDS ORDERED: SODIUM BICARBONATE 8.4% INJ 50 MEQ/50 ML DISP.SYRIN ONE (12:38)
[2018-07-04 13:11] LABS: PATH REVIEW PATHOLOGIST REVIEWED
[2018-07-04] MEDS: DEXTROSE 5%-1/2 NORMAL SALINE 1,000 ML IV PRN (17:11)
[2018-07-04] MEDS: ATORVASTATIN CALCIUM 40 MG TABLET PO SCH (21:38)
[2018-07-04 21:57] LABS: ANION GAP 14 (5-19); CALCIUM 9.5 mg/dL (8.4-10.2); CARBON DIOXIDE 22 mmol/L (22-30); CHLORIDE 108 mmol/L (98-107); GLUCOSE 95 mg/dL (75-110); SODIUM 144.3 mmol/L (137-145)
[2018-07-04 22:11] LABS: BLOOD UREA NITROGEN 127 mg/dL (7-20)
[2018-07-04 22:12] LABS: POTASSIUM 2.7 mmol/L (3.6-5.0)
[2018-07-04] MEDS ORDERED: LACTULOSE SYRUP 20 GM/30 ML UDCUP PEG ONE (22:45)
[2018-07-04] MEDS: POTASSIUM CHLORIDE 20 MEQ/50 ML RTU IV SCH (23:35)
[2018-07-05] MEDS: IPRATROPIUM/ALBUTEROL 0.5-2.5 MG/3 ML AMPUL NEB SCH ×4 (00:23→23:43)
[2018-07-05] MEDS: POTASSIUM CHLORIDE 20 MEQ/50 ML RTU IV SCH ×2 (01:17→03:23)
[2018-07-05 03:38] LABS: ABSOLUTE EOSINOPHILS # (AUTO) 0.7 10^3/uL (0.0-0.6); ABSOLUTE LYMPHOCYTES (AUTO) 1.5 10^3/uL (0.5-4.7); ABSOLUTE MONOCYTES (AUTO) 1.6 10^3/uL (0.1-1.4); ABSOLUTE NEUT (AUTO) 12.2 10^3/uL (1.7-8.2); BASOPHILS % (AUTO) 0.3 % (0-2); EOSINOPHILS % (AUTO) 4.5 % (0-6); HEMATOCRIT 25.5 % (36.0-47.0); HEMOGLOBIN 8.2 g/dL (12.0-15.5); LYMPHOCYTES % (AUTO) 9.3 % (13-45); MEAN CORPUSCULAR HGB CONC 32.1 g/dL (32.0-36.0); MEAN CORPUSCULAR VOLUME 84 fl (80-97); MONOCYTES % (AUTO) 10.2 % (3-13); PLATELET COUNT 285 10^3/uL (150-450); RED BLOOD COUNT 3.04 10^6/uL (3.72-5.28); RED CELL DISTRIBUTION WIDTH 14.6 % (11.5-14.0); SEGMENTED NEUTROPHILS % (AUTO) 75.7 % (42-78); TOTAL CELLS COUNTED % (AUTO) 100 %; WHITE BLOOD COUNT 16.2 10^3/uL (4.0-10.5)
[2018-07-05 03:48] LABS: ANION GAP 15 (5-19); CALCIUM 9.8 mg/dL (8.4-10.2); CARBON DIOXIDE 21 mmol/L (22-30); CHLORIDE 112 mmol/L (98-107); GLUCOSE 85 mg/dL (75-110); POTASSIUM 3.6 mmol/L (3.6-5.0); SODIUM 147.9 mmol/L (137-145)
[2018-07-05 03:59] LABS: BLOOD UREA NITROGEN 125 mg/dL (7-20)
[2018-07-05] MEDS: CEFTAZIDIME PENTAHYDRATE 2 GM in DEXTROSE 5%-WATER 100 ML IV SCH (05:10)
[2018-07-05] MEDS: GABAPENTIN 100 MG CAPSULE PO SCH ×3 (05:11→21:49)
[2018-07-05] MEDS: NYSTATIN/TRIAMCIN CREAM 15 GM TP SCH ×2 (05:11→14:19)
[2018-07-05] MEDS ORDERED: SODIUM POLYSTYRENE SULFONATE 15 GM/60 ML PO SCH (07:30)
--- NOTE | 2018-07-05 08:26 | PDOC PROGRESS REPORT ---
Subjective Progress Note for:: 07/05/18 Subjective:: 68 year old female with a past medical history of CVA with immobility, peripheral vascular disease status post bilateral lower extremity amputation, chronic kidney disease, diabetes, chronic UTI and stage III sacral decubiti. She is brought to the emergency room for altered mental status found to have leukocytosis, acute on chronic renal failure, pyuria, 4 x 4 centimeter stage IV sacral decubiti, 2 x 3 cm stage II decubiti at the gluteal fold bilaterally. Patient admits to pain but is unable to localize. She received empiric antibiotic and refer to the hospitalist for admission. 07/04/2018-patient was brought to the ICU last night she has PEA ,status post resuscitation lasted for less than a minute she was given EPI and intubated. EKG shows questionable new RBBB. Troponin went up to 0.158 may be because of the resuscitation effort. Patient is presently on 30% oxygen pH is 7.42/PO2 35 PCO2 52 oxygen saturation is 88%. Patient is presently on propofol. Sedated. Nurses noticing fecal-like matter coming through the NG tube. Patient is severely constipated she was started on soapsuds enemas yesterday. And has a PEG tube. She has also has a stage III sacral decubitus and also stage III wound on the lateral aspect of the right upper thigh. Presently WBC count is 21,900 on vancomycin and Fortaz. Blood sugars are dropping to 75 to start on a D5 today to prevent hypoglycemic episodes. CT head done last night shows mild microvascular changes. On examination right eye pupil is dilated mildly reactive. Left pupil is reacting well. Unable to do neuro examination because patient is sedated. 07/05/2018-patient is still on ventilator pulse ox is 100% on 25% oxygen. Patient ventilator settings are SIMV with tidal volume of 500 PEEP of 5 oxygen saturation of 25%. Decreasing requirements of oxygen. KUB done yesterday suggests significant amount of stool. To give Kayexalate, mag citrate and enemas today to resolve the constipation. No acute events in the last 24 hours. Propofol is turned off this morning. Patient is on a D5 half-normal saline because of hypoglycemia yesterday. Blood sugar is around 94 this morning. NG tube feedings are on hold. Reason For Visit: UTI ,DECUB SEPSIS, UREMIA Physical Exam Vital Signs: Temp Pulse Resp BP Pulse Ox 98.2 F 80 0 L 135/64 H 100 07/05/18 07:37 07/05/18 00:23 07/05/18 07:37 07/05/18 07:37 07/05/18 07:37 Intake & Output 07/04/18 07/05/18 07/06/18 06:59 06:59 06:59 Intake Total 473 299 26 Output Total 1650 1080 [facility] -[id number] -781 26 Weight 58.6 kg 61.1 kg General appearance: PRESENT: other - Patient is intubated propofol is just turned off this morning. Head exam: PRESENT: atraumatic Eye exam: PRESENT: other - Right pupil is dilated mildly reactive. Left pupil is reactive to light well. Mouth exam: PRESENT: moist, tongue midline Teeth exam: PRESENT: poor dentation Neck exam: ABSENT: carotid bruit, JVD, lymphadenopathy, thyromegaly Respiratory exam: PRESENT: decreased breath sounds Cardiovascular exam: PRESENT: systolic murmur, tachycardia GI/Abdominal exam: PRESENT: other - Patient has a PEG tube. Patient has NG tube connected to the suction. Gentrourinary exam: PRESENT: indwelling catheter Extremities exam: PRESENT: other - Patient has right BKA left AKA. Neurological exam: PRESENT: other - Patient is intubated unable to do the neuro examination. Skin exam: PRESENT: other - Patient has a sacral decubitus stage III and also has a sacral wound on the lateral aspect of the right upper thigh. Results Laboratory Results: 07/05/18 03:05 07/05/18 03:05 07/04/18 07/05/18 07/05/18 20:10 03:05 03:05 WBC 16.2 H RBC 3.04 L Hgb 8.2 L Hct 25.5 L MCV 84 MCH 27.0 MCHC 32.1 RDW 14.6 H Plt Count 285 Seg Neutrophils % 75.7 Lymphocytes % 9.3 L Monocytes % 10.2 Eosinophils % 4.5 Basophils % 0.3 Absolute Neutrophils 12.2 H Absolute Lymphocytes 1.5 Absolute Monocytes 1.6 H Absolute Eosinophils 0.7 H Absolute Basophils 0.0 Carbonic Acid HCO3/H2CO3 Ratio ABG pH ABG pCO2 ABG pO2 ABG HCO3 ABG O2 Saturation ABG Base Excess FiO2 Sodium 144.3 147.9 H Potassium 2.7 L* 3.6 Chloride 108 H 112 H Carbon Dioxide 22 21 L Anion Gap 14 15 BUN 127 H 125 H Creatinine 2.44 H 2.34 H Est GFR ( Amer) 24 L 25 L Est GFR (Non-Af Amer) 20 L 21 L Glucose 95 85 Calcium 9.5 9.8 07/05/18 04:25 WBC RBC Hgb Hct MCV MCH MCHC RDW Plt Count Seg Neutrophils % Lymphocytes % Monocytes % Eosinophils % Basophils % Absolute Neutrophils Absolute Lymphocytes Absolute Monocytes Absolute Eosinophils Absolute Basophils Carbonic Acid Cancelled HCO3/H2CO3 Ratio Cancelled ABG pH Cancelled ABG pCO2 Cancelled ABG pO2 Cancelled ABG HCO3 Cancelled ABG O2 Saturation Cancelled ABG Base Excess Cancelled FiO2 Cancelled Sodium Potassium Chloride Carbon Dioxide Anion Gap BUN Creatinine Est GFR ( Amer) Est GFR (Non-Af Amer) Glucose Calcium 06/28/18 06/28/18 07/03/18 15:30 15:30 20:05 Creatine Kinase < 20 L 76 CK-MB (CK-2) Troponin I < 0.012 07/03/18 07/04/18 07/04/18 20:05 02:38 02:38 Creatine Kinase 83 CK-MB (CK-2) 4.98 H 6.58 H Troponin I 0.078 0.158 07/04/18 07/04/18 09:44 09:44 Creatine Kinase 43 CK-MB (CK-2) 5.94 H Troponin I 0.273 Impressions: Abdomen/Pelvis CT 07/01/18 00:00 IMPRESSION: 1. Moderate constipation. 2. Left exophytic solid renal lesion has increased in size and now measures 2.1 cm. This could represent complex cyst although a solid mass cannot be excluded. 3. Decubitus ulcer just right of midline overlying the sacrum. Inflammation extends to the level of the lower sacrum and coccyx. Bone involvement cannot be excluded. 4. Subcutaneous edema. Lung Scan-VQ ND 07/02/18 13:06 IMPRESSION: Very limited anterior and anterior oblique planar perfusion images on bed bound patient unable to tolerate flat positioning and unable to perform ventilation imaging. Generally nondiagnostic examination without obvious perfusion defect. Recommend CT pulmonary angiogram to further evaluate if there is persistent suspicion for pulmonary embolism. Chest X-Ray 07/03/18 00:00 IMPRESSION: Endotracheal tube in place. Aeration of the lungs is improved. Head CT 07/03/18 00:00 IMPRESSION: No acute intracranial hemorrhage or mass effect. Mild chronic microvascular ischemic change and generalized atrophy. Remote lacunar infarcts about the bilateral lentiform nuclei and left thalamus. TECHNICAL DOCUMENTATION: Quality ID # [id number]: Final reports with documentation of one or more dose reduction techniques (e.g., Automated exposure control, adjustment of the mA and/or kV according to patient size, use of iterative reconstruction technique) copyright 2011 [employer]- All Rights Reserved KUB X-Ray 07/04/18 00:00 IMPRESSION: Massive amount of stool throughout the colon. Assessment and Plan - Diagnosis (1) Acute and chronic respiratory failure with hypoxia Is this a current diagnosis for this admission?: Yes Plan: Improving. Multifcatorial, likely due to underlying pneumonia and aspiration. Not a candidate for CTA due to worsening renal function, VQ scan sub-optimal due to patient being bedbound. Continue supplemental oxygen. If PO2 drops patient will need to be intubated as she is to altered for BiPAP. Continue empiric antibiotics. 07/03/2018: ABG pH 7.34, PCO2 39.9, PO2 73.3. 07/02/2018: ABG pH 7.34, PCO2 39.1, PO2 48.2. 07/04/2018-patient was transferred to ICU last night because of pulseless electrical activity status post resuscitation for less than a minute she was intubated during the process ABG had 30% oxygen he is pH 7.42 PCO2 35 PO2 52 oxygen saturation is 88.5. Plan is to continue to keep her intubated underscore keep it under sedation/ consultation with Dr. Escobar is going to be requested. plan to repeat the ABG in the morning. 07/05/2018-patient is still intubated propofol is turned off pulse ox 100% on 25% oxygen. ABG this morning is pending. No acute events in the last 24 hours. Patient is afebrile. presently on Fortaz and vancomycin. ABG today pending. Today's chest x-ray is pending. (2) CKD (chronic kidney disease) stage 4, GFR 15-29 ml/min Is this a current diagnosis for this admission?: Yes Plan: Worsening stable. Electrolytes within normal limits except for magnesium. Will DC Lasix. 07/03/2018: FiO2 91-97 4 L nasal cannula. I/O 360/900 -540. ABG pH 7.34, PCO2 39.9, PO2 73.3. Sodium 141.7, potassium 4.3, chloride 106, creatinine 2.47, magnesium 3.6, 07/02/2018: Sodium 137.5, potassium 4.3, bicarb 19, creatinine 2.24 up from 1.94, baseline 2.41, Mg 3.4 down from 3.5. Fluid balance -1640. 07/01/2018. sodium 135.4, potassium 4.8, bicarbonate 17, creatinine 1.94 down from 2.54 from admission. Baseline 2.4. Urine culture from 06/30/2018 growing MRSA. BMP tomorrow. Replace electrolytes as needed. 07/04/2018-patient has a stage IV kidney disease creatinine 2 days at 2.28 baseline creatinine is around 2.4. Urine cultures are showing MRSA. Presently on Fortaz and vancomycin. Potassium is 3.6 stable bicarb is 19. Serum sodium is 141.9. Plan is to repeat the labs tomorrow. Patient has a negative fluid balance of 1100 mL. 07/05/2018-patient serum creatinine today is 2.34. sLightly improved from 2.44 yesterday. Patient is presently on D5 half-normal saline at 75 cc/h. Serum potassium is 3.6 bicarb is 21. Sodium is 148. Plan is to continue the present management. (3) Leukocytosis Qualifiers: Leukocytosis type: unspecified Qualified Code(s): D72.829 - Elevated white blood cell count, unspecified Is this a current diagnosis for this admission?: Yes Plan: Improving. Urine culture positive for MRSA. No blood culture available from admission. Continue Fortaz and Vanco Started vancomycin 06/30/2018. Total 4 days of IV antibiotics. 07/03/2018: WBC 17.8, hemoglobin 8.7, platelet 312. ABG pH 7.34, PCO2 39.9, PO2 73.3. Sodium 141.7, potassium 4.3, chloride 106, creatinine 2.47, magnesium 3.6, 07/01/2018. WBC 18.2 down from 30.6 on admission, sodium 135.4, potassium 4.8, bicarbonate 17, creatinine 1.94 down from 2.54 from admission Urine culture from 06/30/2018 growing MRSA. Patient febrile was, altered, leukocytosis on admission urine culture positive for MRSA raises a question of seeding possibly endocarditis or decubitus ulcer. 07/01/2018. 2D echo no vegetations. Ejection fraction 60%. CT pelvis constipation and decubitus ulcer inflammation extending to the sacrum. No sign of osteomyelitis. 07/04/2018-WBC count is 21,900 today. Presently on Fortaz and vancomycin. Urine culture shows MRSA. Blood cultures are negative. T-max is 99.1 today. She has a sacral decubiti and also decubitus ulcer on the right thigh. Echocardiogram was done EF is 60% no evidence of any vegetation no suspicion for vegetation. CT pelvis shows constipation under decubitus ulcer inflammation extending to the sacrum but no signs of osteomyelitis. Plan is to continue the present management. 07/05/2018-patient's WBC count is 16,200 today. Improved from 21,900 yesterday. Presently on Fortaz and IV vancomycin. Urine culture shows MRSA. Blood cultures are negative. Afebrile. Temperature is 98.1 today. Pulse rate is 80. Plan is to continue the present management. (4) Acute encephalopathy Is this a current diagnosis for this admission?: Yes Plan: Multifactorial, most likely due to underlying infectious, worsening azotemia, narcotics and hypoxia. 07/03/2018: SBP of 130-150, T-max 99.3, HR 95-157, RR 16-20, FiO2 91-97 4 L nasal cannula. I/O 360/900 -540. WBC 17.8, hemoglobin 8.7, platelet 312. ABG pH 7.34, PCO2 39.9, PO2 73.3. Sodium 141.7, potassium 4.3, chloride 106, creatinine 2.47, magnesium 3.6, 07/02/2018: SBP 136-170, T-max 98.4, pulse 70-94, SPO2 97 to 102 L NC, WBC 19.6, platelet 341, Hgb 9.4, 137.5, potassium 4.3, bicarb 19, creatinine 2.24 up from 1.94, baseline 2.41. 07/01/2018. SBP 139-170. T-max 98.2. Pulse 69-86. SPO2 100% on 2 L nasal cannula FiO2 28%. WBC 18.2 down from 30.6 on admission, sodium 135.4, potassium 4.8, bicarbonate 17, creatinine 1.94 down from 2.54 from admission Urine culture from 06/30/2018 growing MRSA. Continue treating the underlying infectious process. Blood cultures no growth x 72 hours. 07/04/2018-patient admitted with altered mental status and sepsis. Presently intubated on sedation. Unable to assisted neuro evaluation. Acute encephalopathy/altered mental status most likely multifactorial including sepsis and electrolyte abnormalities. 07/05/2018-patient was admitted for acute encephalopathy/altered mental status. Patient is on mechanical ventilation and propofol was turned off this morning. Pulse ox is 100% on 25% oxygen. Altered mental status most likely secondary to electrolyte abnormalities and underlying sepsis. She also has history of strokes and dementia. (5) Diabetes Qualifiers: Diabetes mellitus long-term insulin use: with long-term use Diabetes mellitus complication status: with kidney complications Chronic kidney disease stage: stage 4 (severe) Is this a current diagnosis for this admission?: No Plan: 06/29/2018-patient has a history of type 2 diabetes mellitus. Plan to start her on insulin sliding scale. Patient is not on diabetic medications at home. diatery consult is going to be requested and to check for hemoglobin A1c oliver orrow. 07/04/2018-patient has a history of type 2 diabetes nurses also insulin sliding scale is n.p.o. we will under intubated. Plan to start her on D5 half-normal saline because blood sugars are dropping to 75 this morning. 07/05/2018-patient has history of type 2 diabetes mellitus blood sugar this morning is 94 , tube feedings are on hold. Presently on D5 half-normal saline at 50 cc/h to prevent hypoglycemic episodes. (6) UTI (urinary tract infection) Qualifiers: Urinary tract infection type: acute cystitis Hematuria presence: with hematuria Qualified Code(s): N30.01 - Acute cystitis with hematuria Is this a current diagnosis for this admission?: Yes Plan: Urine culture positive for MRSA. History of recurrent E. coli sensitive UTIs. Continue Fortaz Stat blood cultures. Started vancomycin 06/30/2018. Total 4 days of IV antibiotics. Urine culture from 06/30/2018 growing MRSA. 07/04/2018-urine cultures positive for MRSA patient has history of recurrent E. coli's causing urinary tract infection. Present on Fortaz and vancomycin. Blood cultures are negative. Plan is to continue the present management. 07/05/2018-urine culture is positive for MRSA sensitivity to vancomycin. Present on Fortaz and vancomycin blood cultures are negative plan is to continue the present management. (7) Sacral decubitus ulcer, stage III Is this a current diagnosis for this admission?: No Plan: Patient has sacral decubitus stage III. Active discharge or drainage will collection. Was evaluated by surgery and at this point no drainage she will collection was observed. 07/01/2018. CT abdomen and pelvis. Moderate constipation. Decubitus ulcer just right of midline overlying the sacrum. Inflammation extends to the level of the lower sacrum and coccyx. Bone involvement cannot be excluded. 07/04/2018-patient has a decubitus ulcer over the sacrum and she has also decubitus ulcer on the lateral aspect of the right upper thigh. Present on Fortaz and vancomycin .surgical team signed off on her yesterday. 07/05/2018-patient has a stage III sacral decubitus and also decubitus ulcer on the lateral aspect of the right upper thigh. Surgery signed off on her. Presently on Fortaz and vancomycin. (8) PEA (Pulseless electrical activity) Is this a current diagnosis for this admission?: Yes Plan: 07/04/2018-patient has pulseless electrical activity last night transferred to ICU status post intubation. Resuscitation lasted less than a minute. She was given EPI. Patient is intubated at this moment blood pressure is 157/62 heart rate is around 100. cause is unknown at this point. 07/05/2018-patient was transferred to ICU for pulseless electrical activity rapid response was called she was coded for less than 1 minute. Presently intubated no cardiac arrhythmias are noted. Patient is doing well on mechanical ventilation plan is to start weaning process from tomorrow. - Time Time Spent with patient: 35 or more minutes Medications reviewed and adjusted accordingly: Yes Anticipated discharge: SNF
[2018-07-05] MEDS ORDERED: BISACODYL 10 MG SUPP.RECT PR ONE (08:30)
[2018-07-05] MEDS ORDERED: MAGNESIUM CITRATE 296 ML BOTTLE PO ONE ×2 (08:30→11:15)
[2018-07-05 09:00] LABS: ARTERIAL BLOOD BASE EXCESS -2.8 mmol/L; ARTERIAL BLOOD HCO3 21.6 mmol/L (20-24); ARTERIAL BLOOD O2 SATURATION 97.4 % (94-98); ARTERIAL BLOOD PCO2 36.5 mmHg (35-45); ARTERIAL BLOOD PH 7.39 (7.35-7.45); ARTERIAL BLOOD PO2 97.2 mmHg (80-100); ARTERIAL BLOOD TOTAL CO2 22.8 mmol/L (21-25)
[2018-07-05 09:10] LABS: ARTERIAL BLOOD FIO2 25%
--- NOTE | 2018-07-05 09:27 | RADIOLOGY REPORT (SQ) ---
EXAM DESCRIPTION: CHEST SINGLE VIEW COMPLETED DATE/TIME: 07/05/2018 9:08 am REASON FOR STUDY: resp failure COMPARISON: 07/03/2018 EXAM PARAMETERS: NUMBER OF VIEWS: One view. TECHNIQUE: Single frontal radiographic view of the chest acquired. RADIATION DOSE: NA LIMITATIONS: None. FINDINGS: LUNGS AND PLEURA: No opacities, masses or pneumothorax. No pleural effusion. MEDIASTINUM AND HILAR STRUCTURES: No masses. Contour normal. HEART AND VASCULAR STRUCTURES: Stable appearance. Normal vasculature. BONES: No acute findings. HARDWARE: Gastrostomy tube and nasogastric tube are identified. The tip of the endotracheal tube is approximately 1.6 cm proximal to the perlita. OTHER: No other significant finding. IMPRESSION: 1. Endotracheal tube is again noted. The tip of the tube is approximately 1.6 cm proxi mal to the perlita. Correlation suggested. 2. No acute pulmonary findings. TECHNICAL DOCUMENTATION: JOB ID: [id number] [employer]- All Rights Reserved Reading location - IP/workstation name: [email or web address]
[2018-07-05] MEDS: INSULIN LISPRO 100 UNIT/ML 3 ML VIAL SUBCUT SCH ×4 (10:25→21:57)
[2018-07-05] MEDS: DOCUSATE SODIUM 100 MG CAPSULE PO SCH (10:30)
[2018-07-05] MEDS: CLOPIDOGREL BISULFATE 75 MG TABLET PO SCH (10:48)
[2018-07-05] MEDS: CHOLECALCIFEROL (D3) 1,000 UNIT TABLET PO SCH (10:48)
[2018-07-05] MEDS: ASPIRIN 81 MG TABLET, ENT COATED PO SCH ×2 (10:48→21:48)
[2018-07-05] MEDS: FONDAPARINUX SODIUM INJ 2.5 MG/0.5 ML DISP.SYRIN SUBCUT SCH (10:48)
[2018-07-05] MEDS: NA PHOS,M-B/NA PHOS,DI-BA (ADULT) 133 ML ENEMA PR SCH ×2 (10:49→21:49)
[2018-07-05] MEDS: LUBIPROSTONE 24 MCG CAPSULE PO SCH (10:49)
[2018-07-05] MEDS: CETIRIZINE 5 MG TABLET PO SCH (10:49)
[2018-07-05] MEDS: VANCOMYCIN HCL 750 MG in DEXTROSE 5%-WATER 250 ML IV SCH (10:57)
[2018-07-05] MEDS: DOCUSATE SODIUM 100 MG/10 ML UDC NG SCH (12:18)
[2018-07-05] MEDS ORDERED: LACTULOSE SYRUP 20 GM/30 ML UDCUP PR PRN (12:30)
[2018-07-05] MEDS: DEXTROSE 5%-1/2 NORMAL SALINE 1,000 ML IV PRN (14:20)
[2018-07-05] MEDS: ATORVASTATIN CALCIUM 40 MG TABLET PO SCH (21:48)
[2018-07-06] MEDS: DEXTROSE 5%-1/2 NORMAL SALINE 1,000 ML IV PRN (03:00)
[2018-07-06] MEDS: CEFTAZIDIME PENTAHYDRATE 2 GM in DEXTROSE 5%-WATER 100 ML IV SCH (05:40)
[2018-07-06] MEDS: GABAPENTIN 100 MG CAPSULE PO SCH ×3 (06:06→21:21)
[2018-07-06 06:34] LABS: ARTERIAL BLOOD H2CO3 1.09 mmol/L (1.05-1.35); ARTERIAL BLOOD HCO3 23.2 mmol/L (20-24); ARTERIAL BLOOD O2 SATURATION 98.2 % (94-98); ARTERIAL BLOOD PCO2 36.1 mmHg (35-45); ARTERIAL BLOOD PH 7.43 (7.35-7.45); ARTERIAL BLOOD PO2 110.4 mmHg (80-100); ARTERIAL BLOOD TOTAL CO2 24.3 mmol/L (21-25)
[2018-07-06 06:35] LABS: ARTERIAL BLOOD FIO2 21%
[2018-07-06] MEDS: IPRATROPIUM/ALBUTEROL 0.5-2.5 MG/3 ML AMPUL NEB SCH ×2 (08:16→17:02)
[2018-07-06 08:28] LABS: ABSOLUTE BASOPHILS # (AUTO) 0.1 10^3/uL (0.0-0.2); ABSOLUTE EOSINOPHILS # (AUTO) 1.1 10^3/uL (0.0-0.6); ABSOLUTE LYMPHOCYTES (AUTO) 1.4 10^3/uL (0.5-4.7); ABSOLUTE MONOCYTES (AUTO) 1.3 10^3/uL (0.1-1.4); ABSOLUTE NEUT (AUTO) 10.4 10^3/uL (1.7-8.2); BASOPHILS % (AUTO) 0.4 % (0-2); HEMATOCRIT 22.4 % (36.0-47.0); MEAN CORPUSCULAR HEMOGLOBIN 27.3 pg (27.0-33.4); MEAN CORPUSCULAR HGB CONC 32.5 g/dL (32.0-36.0); MEAN CORPUSCULAR VOLUME 84 fl (80-97); MONOCYTES % (AUTO) 9.1 % (3-13); PLATELET COUNT 227 10^3/uL (150-450); RED BLOOD COUNT 2.67 10^6/uL (3.72-5.28); SEGMENTED NEUTROPHILS % (AUTO) 72.5 % (42-78); TOTAL CELLS COUNTED % (AUTO) 100 %; WHITE BLOOD COUNT 14.3 10^3/uL (4.0-10.5)
[2018-07-06 08:30] LABS: HEMOGLOBIN 7.3 g/dL (12.0-15.5)
[2018-07-06] MEDS ORDERED: NORMAL SALINE 250 ML IV PRN ×2 (08:32)
[2018-07-06 08:44] LABS: ALANINE AMINOTRANSFERASE 107 U/L (9-52); ALBUMIN 2.6 g/dL (3.5-5.0); ALKALINE PHOSPHATASE 77 U/L (38-126); ANION GAP 14 (5-19); ASPARTATE AMINO TRANSFERASE 25 U/L (14-36); BILIRUBIN,DIRECT 0.4 mg/dL (0.0-0.4); BILIRUBIN,TOTAL 0.4 mg/dL (0.2-1.3); BLOOD UREA NITROGEN 106 mg/dL (7-20); CALCIUM 9.1 mg/dL (8.4-10.2); CARBON DIOXIDE 21 mmol/L (22-30); CHLORIDE 110 mmol/L (98-107); GLUCOSE 144 mg/dL (75-110); POTASSIUM 3.3 mmol/L (3.6-5.0); SODIUM 144.8 mmol/L (137-145); TOTAL PROTEIN 5.4 g/dL (6.3-8.2)
--- NOTE | 2018-07-06 08:46 | PDOC PROGRESS REPORT ---
Subjective Progress Note for:: 07/06/18 Subjective:: 68 year old female with a past medical history of CVA with immobility, peripheral vascular disease status post bilateral lower extremity amputation, chronic kidney disease, diabetes, chronic UTI and stage III sacral decubiti. She is brought to the emergency room for altered mental status found to have leukocytosis, acute on chronic renal failure, pyuria, 4 x 4 centimeter stage IV sacral decubiti, 2 x 3 cm stage II decubiti at the gluteal fold bilaterally. Patient admits to pain but is unable to localize. She received empiric antibiotic and refer to the hospitalist for admission. 07/04/2018-patient was brought to the ICU last night she has PEA ,status post resuscitation lasted for less than a minute she was given EPI and intubated. EKG shows questionable new RBBB. Troponin went up to 0.158 may be because of the resuscitation effort. Patient is presently on 30% oxygen pH is 7.42/PO2 35 PCO2 52 oxygen saturation is 88%. Patient is presently on propofol. Sedated. Nurses noticing fecal-like matter coming through the NG tube. Patient is severely constipated she was started on soapsuds enemas yesterday. And has a PEG tube. She has also has a stage III sacral decubitus and also stage III wound on the lateral aspect of the right upper thigh. Presently WBC count is 21,900 on vancomycin and Fortaz. Blood sugars are dropping to 75 to start on a D5 today to prevent hypoglycemic episodes. CT head done last night shows mild microvascular changes. On examination right eye pupil is dilated mildly reactive. Left pupil is reacting well. Unable to do neuro examination because patient is sedated. 07/05/2018-patient is still on ventilator pulse ox is 100% on 25% oxygen. Patient ventilator settings are SIMV with tidal volume of 500 PEEP of 5 oxygen saturation of 25%. Decreasing requirements of oxygen. KUB done yesterday suggests significant amount of stool. To give Kayexalate, mag citrate and enemas today to resolve the constipation. No acute events in the last 24 hours. Propofol is turned off this morning. Patient is on a D5 half-normal saline because of hypoglycemia yesterday. Blood sugar is around 94 this morning. NG tube feedings are on hold. 07/06/2018-no acute events in the last 24 hours. Patient is afebrile. Patient's hemoglobin dropped to 7.3 today. Yesterday's hemoglobin is 8.2 plan is to transfuse at least 2 units today. ABG done this morning shows pH of 7.43 PCO2 36 PO2 110 bicarb is 23 this is on room air. Plan to wean her off from the vent today. Plan to do the KUB today before starting the tube feedings. Family members are at bedside they are happy with the care so far. Reason For Visit: UTI ,DECUB SEPSIS, UREMIA Physical Exam Vital Signs: Temp Pulse Resp BP Pulse Ox 98.8 F 80 12 166/71 H 100 07/06/18 02:52 07/05/18 23:44 07/05/18 23:44 07/05/18 18:00 07/06/18 03:22 Intake & Output 07/05/18 07/06/18 07/07/18 06:59 06:59 06:59 Intake Total 1299 1326 Output Total 1080 1530 Balance 219 -204 Weight 61.1 kg 62.6 kg General appearance: PRESENT: no acute distress, other - Patient is still on the ventilator off the sedation responding to verbal commands very well. Head exam: PRESENT: atraumatic Eye exam: PRESENT: other - Right pupil was dilated reactive. Left pupil was rich cting well to the light and accommodation. Mouth exam: PRESENT: moist, tongue midline Neck exam: ABSENT: carotid bruit, JVD, lymphadenopathy, thyromegaly Respiratory exam: PRESENT: decreased breath sounds Cardiovascular exam: PRESENT: systolic murmur, tachycardia GI/Abdominal exam: PRESENT: normal bowel sounds, soft, other - Patient has feeding tube.. ABSENT: distended, guarding, mass, organolmegaly, rebound, tenderness Rectal exam: PRESENT: deferred Gentrourinary exam: PRESENT: indwelling catheter Extremities exam: PRESENT: other - Patient has a right AKA and left BKA. Neurological exam: PRESENT: alert, awake, other - On the ventilator. Skin exam: PRESENT: other - Patient has a sacral decubitus stage III and also sacral ulcer on the lateral aspect of the right upper thigh. Results Laboratory Results: 07/05/18 07/06/18 08:45 05:09 Carbonic Acid 1.10 1.09 HCO3/H2CO3 Ratio 19:1 21:1 ABG pH 7.39 7.43 ABG pCO2 36.5 36.1 ABG pO2 97.2 110.4 H ABG HCO3 21.6 23.2 ABG O2 Saturation 97.4 98.2 H ABG Base Excess -2.8 -1.0 FiO2 25% 21% 07/03/18 23:20 Tracheal Aspirate Gram Stain - Final 07/03/18 23:20 Tracheal Aspirate Sputum Culture - Final Mrsa (Meth Resis Staph Aureus) Normal [place] Absent 06/30/18 15:27 Blood Blood Culture - Final NO GROWTH IN 5 DAYS 06/30/18 14:26 Blood Blood Culture - Final NO GROWTH IN 5 DAYS 06/28/18 06/28/18 07/03/18 15:30 15:30 20:05 Creatine Kinase < 20 L 76 CK-MB (CK-2) Troponin I < 0.012 07/03/18 07/04/18 07/04/18 20:05 02:38 02:38 Creatine Kinase 83 CK-MB (CK-2) 4.98 H 6.58 H Troponin I 0.078 0.158 07/04/18 07/04/18 09:44 09:44 Creatine Kinase 43 CK-MB (CK-2) 5.94 H Troponin I 0.273 Impressions: Abdomen/Pelvis CT 07/01/18 00:00 IMPRESSION: 1. Moderate constipation. 2. Left exophytic solid renal lesion has increased in size and now measures 2.1 cm. This could represent complex cyst although a solid mass cannot be excluded. 3. Decubitus ulcer just right of midline overlying the sacrum. Inflammation extends to the level of the lower sacrum and coccyx. Bone involvement cannot be excluded. 4. Subcutaneous edema. Lung Scan-VQ CA 07/02/18 13:06 IMPRESSION: Very limited anterior and anterior oblique planar perfusion images on bed bound patient unable to tolerate flat positioning and unable to perform ventilation imaging. Generally nondiagnostic examination without obvious perfusion defect. Recommend CT pulmonary angiogram to further evaluate if there is persistent suspicion for pulmonary embolism. Head CT 07/03/18 00:00 IMPRESSION: No acute intracranial hemorrhage or mass effect. Mild chronic microvascular ischemic change and generalized atrophy. Remote lacunar infarcts about the bilateral lentiform nuclei and left thalamus. TECHNICAL DOCUMENTATION: Quality ID # [id number]: Final reports with documentation of one or more dose reduction techniques (e.g., Automated exposure control, adjustment of the mA and/or kV according to patient size, use of iterative reconstruction technique) copyright 2010 [employer]- All Rights Reserved KUB X-Ray 07/04/18 00:00 IMPRESSION: Massive amount of stool throughout the colon. Chest X-Ray 07/05/18 00:00 IMPRESSION: 1. Endotracheal tube is again noted. The tip of the tube is approximately 1.6 cm proximal to the perlita. Correlation suggested. 2. No acute pulmonary findings. Assessment and Plan - Diagnosis (1) Acute and chronic respiratory failure with hypoxia Is this a current diagnosis for this admission?: Yes Plan: Improving. Multifcatorial, likely due to underlying pneumonia and aspiration. Not a candidate for CTA due to worsening renal function, VQ scan sub-optimal due to patient being bedbound. Continue supplemental oxygen. If PO2 drops patient will need to be intubated as she is to altered for BiPAP. Continue empiric antibiotics. 07/03/2018: ABG pH 7.34, PCO2 39.9, PO2 73.3. 07/02/2018: ABG pH 7.34, PCO2 39.1, PO2 48.2. 07/04/2018-patient was transferred to ICU last night because of pulseless electrical activity status post resuscitation for less than a minute she was intubated during the process ABG had 30% oxygen he is pH 7.42 PCO2 35 PO2 52 oxygen saturation is 88.5. Plan is to continue to keep her intubated underscore keep it under sedation/ consultation with Dr. Escobar is going to be requested. plan to repeat the ABG in the morning. 07/05/2018-patient is still intubated propofol is turned off pulse ox 100% on 25% oxygen. ABG this morning is pending. No acute events in the last 24 hours. Patient is afebrile. presently on ceftazadime and vancomycin. ABG today pending. Today's chest x-ray is pending. 07/06/2018-patient is still on mechanical ventilation off the sedatives. Alert awake responding to the verbal commands. ABG on room air shows pH of 7.43 PCO2 36 PO2 110 bicarb is 23. Plan is to wean her off from the vent today. presently on geftazadime and vancomycin. Sputum cultures are showing MRSA urine culture showing MRSA. Chest x-ray done yesterday shows no acute pulmonary pathology noticed. (2) CKD (chronic kidney disease) stage 4, GFR 15-29 ml/min Is this a current diagnosis for this admission?: Yes Plan: Worsening stable. Electrolytes within normal limits except for magnesium. Will DC Lasix. 07/03/2018: FiO2 91-97 4 L nasal cannula. I/O 360/900 -540. ABG pH 7.34, PCO2 39.9, PO2 73.3. Sodium 141.7, potassium 4.3, chloride 106, creatinine 2.47, magnesium 3.6, 07/02/2018: Sodium 137.5, potassium 4.3, bicarb 19, creatinine 2.24 up from 1.94, baseline 2.41, Mg 3.4 down from 3.5. Fluid balance -1640. 07/01/2018. sodium 135.4, potassium 4.8, bicarbonate 17, creatinine 1.94 down from 2.54 from admission. Baseline 2.4. Urine culture from 06/30/2018 growing MRSA. BMP tomorrow. Replace electrolytes as needed. 07/04/2018-patient has a stage IV kidney disease creatinine 2 days at 2.28 baseline creatinine is around 2.4. Urine cultures are showing MRSA. Presently on ceftazadime and vancomycin. Potassium is 3.6 stable bicarb is 19. Serum sodium is 141.9. Plan is to repeat the labs tomorrow. Patient has a negative fluid balance of 1100 mL. 07/05/2018-patient serum creatinine today is 2.34. sLightly improved from 2.44 yesterday. Patient is presently on D5 half-normal saline at 75 cc/h. Serum potassium is 3.6 bicarb is 21. Sodium is 148. Plan is to continue the present management. 07/06/2018-patient has today's creatinine is 2.34 today's creatinine is pending. Presently on a D5 half-normal saline at 75 cc/h. Patient has baseline creatinine of around 2.4. Urine culture showing MRSA. Plan is to continue the present management. (3) Leukocytosis Qualifiers: Leukocytosis type: unspecified Qualified Code(s): D72.829 - Elevated white blood cell count, unspecified Is this a current diagnosis for this admission?: Yes Plan: Improving. Urine culture positive for MRSA. No blood culture available from admission. Continue Fortaz and Vanco Started vancomycin 06/30/2018. Total 4 days of IV antibiotics. 07/03/2018: WBC 17.8, hemoglobin 8.7, platelet 312. ABG pH 7.34, PCO2 39.9, PO2 73.3. Sodium 141.7, potassium 4.3, chloride 106, creatinine 2.47, magnesium 3.6, 07/01/2018. WBC 18.2 down from 30.6 on admission, sodium 135.4, potassium 4.8, bicarbonate 17, creatinine 1.94 down from 2.54 from admission Urine culture from 06/30/2018 growing MRSA. Patient febrile was, altered, leukocytosis on admission urine culture positive for MRSA raises a question of seeding possibly endocarditis or decubitus ulcer. 07/01/2018. 2D echo no vegetations. Ejection fraction 60%. CT pelvis constipation and decubitus ulcer inflammation extending to the sacrum. No sign of osteomyelitis. 07/04/2018-WBC count is 21,900 today. Presently on Fortaz and vancomycin. Urine culture shows MRSA. Blood cultures are negative. T-max is 99.1 today. She has a sacral decubiti and also decubitus ulcer on the right thigh. Echocardiogram was done EF is 60% no evidence of any vegetation no suspicion for vegetation. CT pelvis shows constipation under decubitus ulcer inflammation extending to the sacrum but no signs of osteomyelitis. Plan is to continue the present management. 07/05/2018-patient's WBC count is 16,200 today. Improved from 21,900 yesterday. Presently on Fortaz and IV vancomycin. Urine culture shows MRSA. Blood cultures are negative. Afebrile. Temperature is 98.1 today. Pulse rate is 80. Plan is to continue the present management. 07/06/2018-WBC count came down to 14,300. WBC count is improving. Plan is to continue Ceftin at this time and IV vancomycin. Sputum culture on the urine culture showing MRSA. Patient has also has sacral wounds as per the surgery there is no evidence of infection . T-max is 98.8 today. (4) Acute encephalopathy Is this a current diagnosis for this admission?: Yes Plan: Multifactorial, most likely due to underlying infectious, worsening azotemia, narcotics and hypoxia. 07/03/2018: SBP of 130-150, T-max 99.3, HR 95-157, RR 16-20, FiO2 91-97 4 L nasal cannula. I/O 360/900 -540. WBC 17.8, hemoglobin 8.7, platelet 312. ABG pH 7.34, PCO2 39.9, PO2 73.3. Sodium 141.7, potassium 4.3, chloride 106, creatinine 2.47, magnesium 3.6, 07/02/2018: SBP 136-170, T-max 98.4, pulse 70-94, SPO2 97 to 102 L NC, WBC 19.6, platelet 341, Hgb 9.4, 137.5, potassium 4.3, bicarb 19, creatinine 2.24 up from 1.94, baseline 2.41. 07/01/2018. SBP 139-170. T-max 98.2. Pulse 69-86. SPO2 100% on 2 L nasal cannula FiO2 28%. WBC 18.2 down from 30.6 on admission, sodium 135.4, potassium 4.8, bicarbonate 17, creatinine 1.94 down from 2.54 from admission Urine culture from 06/30/2018 growing MRSA. Continue treating the underlying infectious process. Blood cultures no growth x 72 hours. 07/04/2018-patient admitted with altered mental status and sepsis. Presently intubated on sedation. Unable to assisted neuro evaluation. Acute encephalopathy/altered mental status most likely multifactorial including sepsis and electrolyte abnormalities. 07/05/2018-patient was admitted for acute encephalopathy/altered mental status. Patient is on mechanical ventilation and propofol was turned off this morning. Pulse ox is 100% on 25% oxygen. Altered mental status most likely secondary to electrolyte abnormalities and underlying sepsis. She also has history of strokes and dementia. 07/06/2018-patient is alert and awake and responding to verbal commands very well. Still intubated but off the sedation. Acute encephalopathy/altered mental status is resolving. (5) Diabetes Qualifiers: Diabetes mellitus senior living insulin use: with compliance advisor use Diabetes mellitus complication status: with kidney complications Chronic kidney disease stage: stage 4 (severe) Is this a current diagnosis for this admission?: No Plan: 06/29/2018-patient has a history of type 2 diabetes mellitus. Plan to start her on insulin sliding scale. Patient is not on diabetic medications at home. diatery consult is going to be requested and to check for hemoglobin A1c tomorrow. 07/04/2018-patient has a history of type 2 diabetes nurses also insulin sliding scale is n.p.o. we will under intubated. Plan to start her on D5 half-normal saline because blood sugars are dropping to 75 this morning. 07/05/2018-patient has history of type 2 diabetes mellitus blood sugar this morning is 94 , tube feedings are on hold. Presently on D5 half-normal saline at 50 cc/h to prevent hypoglycemic episodes. 07/06/2018-patient is presently on D5 half-normal saline to prevent hypoglycemia. Plan to do the KUB today if it is okay , going to start back on tube feeds with Glucerna. (6) UTI (urinary tract infection) Qualifiers: Urinary tract infection type: acute cystitis Hematuria presence: with hematuria Qualified Code(s): N30.01 - Acute cystitis with hematuria Is this a current diagnosis for this admission?: Yes Plan: Urine culture positive for MRSA. History of recurrent E. coli sensitive UTIs. Continue Fortaz Stat blood cultures. Started vancomycin 06/30/2018. Total 4 days of IV antibiotics. Urine culture from 06/30/2018 growing MRSA. 07/04/2018-urine cultures positive for MRSA patient has history of recurrent E. coli's causing urinary tract infection. Present on Fortaz and vancomycin. Blood cultures are negative. Plan is to continue the present management. 07/05/2018-urine culture is positive for MRSA sensitivity to vancomycin. Present on Fortaz and vancomycin blood cultures are negative plan is to continue the present management. 07/06/2018-urine culture is positive for MRSA sensitive to the vancomycin. Presently on Ceftazadime and vancomycin. Plan is to continue present management. (7) Sacral decubitus ulcer, stage III Is this a current diagnosis for this admission?: No (8) PEA (Pulseless electrical activity) Is this a current diagnosis for this admission?: Yes (9) Hx of AKA (above knee amputation) Qualifiers: Laterality: right Qualified Code(s): Z89.611 - Acquired absence of right leg above knee Is this a current diagnosis for this admission?: No Plan: 07/06/2018-patient has history of right AKA. Stump is without any signs of infection. (10) Hx of BKA Qualifiers: Laterality: left Qualified Code(s): Z89.512 - Acquired absence of left leg below knee Is this a current diagnosis for this admission?: No Plan: 07/06/2018-patient has history of left BKA. Stump is clean without any signs of infection. - Time Time Spent with patient: 25-34 minutes Medications reviewed and adjusted accordingly: Yes Anticipated discharge: Home with Homehealth
[2018-07-06] MEDS: INSULIN LISPRO 100 UNIT/ML 3 ML VIAL SUBCUT SCH ×4 (09:19→21:21)
[2018-07-06] MEDS: CETIRIZINE 5 MG TABLET PO SCH (09:52)
[2018-07-06] MEDS: LUBIPROSTONE 24 MCG CAPSULE PO SCH (09:52)
[2018-07-06] MEDS: DOCUSATE SODIUM 100 MG/10 ML UDC NG SCH (09:52)
[2018-07-06] MEDS: CHOLECALCIFEROL (D3) 1,000 UNIT TABLET PO SCH (09:52)
[2018-07-06] MEDS: CLOPIDOGREL BISULFATE 75 MG TABLET PO SCH (09:53)
[2018-07-06] MEDS: FONDAPARINUX SODIUM INJ 2.5 MG/0.5 ML DISP.SYRIN SUBCUT SCH (09:53)
[2018-07-06] MEDS: ASPIRIN 81 MG TABLET, ENT COATED PO SCH ×2 (09:53→21:22)
[2018-07-06] MEDS: NA PHOS,M-B/NA PHOS,DI-BA (ADULT) 133 ML ENEMA PR SCH ×2 (10:06→21:21)
--- NOTE | 2018-07-06 12:13 | RADIOLOGY REPORT (SQ) ---
EXAM DESCRIPTION: KUB/ABDOMEN (SINGLE VIEW) COMPLETED DATE/TIME: 07/06/2018 10:51 am REASON FOR STUDY: ileus COMPARISON: 07/04/2018. NUMBER OF VIEWS: One view. TECHNIQUE: Supine radiographic image of the abdomen acquired. LIMITATIONS: None. FINDINGS: BOWEL GAS PATTERN: Since the prior study, there has been considerable clearance of stool. Mild -moderate rectal stool remains. Mild gas throughout the remainder of the colon which is genera lly nondilated. No dilated small bowel loops appreciated. CALCIFICATIONS: No suspicious calcifications. SOFT TISSUES: No gross mass or suggestion of organomegaly. HARDWARE: NG tube remains appropriately positioned. BONES: Osteopenic. OTHER: No other significant finding. IMPRESSION: Improved stool burden. No acute radiographic abnormality. TECHNICAL DOCUMENTATION: JOB ID: [id number] [employer]- All Rights Reserved Reading location - IP/workstation name: [email or web address]
[2018-07-06] MEDS ORDERED: FUROSEMIDE INJ/PF 40 MG/4 ML SDV ONE (14:47)
[2018-07-06] MEDS: LACTULOSE SYRUP 20 GM/30 ML UDCUP PR PRN (14:55)
[2018-07-06] MEDS: POTASSIUM CHLORIDE 20 MEQ/50 ML RTU IV SCH ×2 (17:05→18:25)
[2018-07-06 18:49] LABS: ABSOLUTE BASOPHILS # (AUTO) 0.1 10^3/uL (0.0-0.2); ABSOLUTE EOSINOPHILS # (AUTO) 1.3 10^3/uL (0.0-0.6); ABSOLUTE LYMPHOCYTES (AUTO) 1.3 10^3/uL (0.5-4.7); ABSOLUTE MONOCYTES (AUTO) 1.2 10^3/uL (0.1-1.4); BASOPHILS % (AUTO) 0.6 % (0-2); EOSINOPHILS % (AUTO) 9.6 % (0-6); HEMATOCRIT 32.8 % (36.0-47.0); LYMPHOCYTES % (AUTO) 9.2 % (13-45); MEAN CORPUSCULAR HEMOGLOBIN 28.4 pg (27.0-33.4); MEAN CORPUSCULAR VOLUME 86 fl (80-97); MONOCYTES % (AUTO) 8.9 % (3-13); PLATELET COUNT 210 10^3/uL (150-450); RED BLOOD COUNT 3.82 10^6/uL (3.72-5.28); RED CELL DISTRIBUTION WIDTH 14.7 % (11.5-14.0); SEGMENTED NEUTROPHILS % (AUTO) 71.7 % (42-78); TOTAL CELLS COUNTED % (AUTO) 100 %; WHITE BLOOD COUNT 13.9 10^3/uL (4.0-10.5)
[2018-07-06 18:53] LABS: HEMOGLOBIN 10.8 g/dL (12.0-15.5)
[2018-07-06] MEDS: ATORVASTATIN CALCIUM 40 MG TABLET PO SCH (21:22)
[2018-07-06 23:48] LABS: ANION GAP 11 (5-19); BLOOD UREA NITROGEN 102 mg/dL (7-20); CARBON DIOXIDE 20 mmol/L (22-30); CHLORIDE 112 mmol/L (98-107); GLUCOSE 149 mg/dL (75-110); POTASSIUM 3.9 mmol/L (3.6-5.0); SODIUM 142.5 mmol/L (137-145)
[2018-07-07] MEDS: IPRATROPIUM/ALBUTEROL 0.5-2.5 MG/3 ML AMPUL NEB SCH ×4 (00:21→23:51)
[2018-07-07 04:55] LABS: ABSOLUTE BASOPHILS # (AUTO) 0.1 10^3/uL (0.0-0.2); ABSOLUTE EOSINOPHILS # (AUTO) 1.3 10^3/uL (0.0-0.6); ABSOLUTE LYMPHOCYTES (AUTO) 1.7 10^3/uL (0.5-4.7); ABSOLUTE MONOCYTES (AUTO) 1.4 10^3/uL (0.1-1.4); BASOPHILS % (AUTO) 0.7 % (0-2); EOSINOPHILS % (AUTO) 9.2 % (0-6); HEMATOCRIT 31.3 % (36.0-47.0); HEMOGLOBIN 10.4 g/dL (12.0-15.5); LYMPHOCYTES % (AUTO) 11.7 % (13-45); MEAN CORPUSCULAR HEMOGLOBIN 28.5 pg (27.0-33.4); MEAN CORPUSCULAR HGB CONC 33.3 g/dL (32.0-36.0); MEAN CORPUSCULAR VOLUME 86 fl (80-97); MONOCYTES % (AUTO) 9.7 % (3-13); PLATELET COUNT 197 10^3/uL (150-450); RED BLOOD COUNT 3.66 10^6/uL (3.72-5.28); RED CELL DISTRIBUTION WIDTH 14.7 % (11.5-14.0); SEGMENTED NEUTROPHILS % (AUTO) 68.7 % (42-78); TOTAL CELLS COUNTED % (AUTO) 100 %; WHITE BLOOD COUNT 14.6 10^3/uL (4.0-10.5)
[2018-07-07 05:18] LABS: ALANINE AMINOTRANSFERASE 85 U/L (9-52); ALBUMIN 2.6 g/dL (3.5-5.0); ALKALINE PHOSPHATASE 77 U/L (38-126); ANION GAP 12 (5-19); ASPARTATE AMINO TRANSFERASE 18 U/L (14-36); BILIRUBIN,DIRECT 0.4 mg/dL (0.0-0.4); BILIRUBIN,TOTAL 0.6 mg/dL (0.2-1.3); BLOOD UREA NITROGEN 96 mg/dL (7-20); CALCIUM 8.7 mg/dL (8.4-10.2); CARBON DIOXIDE 20 mmol/L (22-30); CHLORIDE 113 mmol/L (98-107); GLUCOSE 111 mg/dL (75-110); POTASSIUM 3.7 mmol/L (3.6-5.0); SODIUM 144.7 mmol/L (137-145); TOTAL PROTEIN 5.4 g/dL (6.3-8.2)
[2018-07-07] MEDS: CEFTAZIDIME PENTAHYDRATE 2 GM in DEXTROSE 5%-WATER 100 ML IV SCH (05:51)
[2018-07-07] MEDS: GABAPENTIN 100 MG CAPSULE PO SCH ×3 (05:53→21:41)
--- NOTE | 2018-07-07 08:36 | PDOC PROGRESS REPORT ---
Subjective Progress Note for:: 07/07/18 Subjective:: 68 year old female with a past medical history of CVA with immobility, peripheral vascular disease status post bilateral lower extremity amputation, chronic kidney disease, diabetes, chronic UTI and stage III sacral decubiti. She is brought to the emergency room for altered mental status found to have leukocytosis, acute on chronic renal failure, pyuria, 4 x 4 centimeter stage IV sacral decubiti, 2 x 3 cm stage II decubiti at the gluteal fold bilaterally. Patient admits to pain but is unable to localize. She received empiric antibiotic and refer to the hospitalist for admission. 07/04/2018-patient was brought to the ICU last night she has PEA ,status post resuscitation lasted for less than a minute she was given EPI and intubated. EKG shows questionable new RBBB. Troponin went up to 0.158 may be because of the resuscitation effort. Patient is presently on 30% oxygen pH is 7.42/PO2 35 PCO2 52 oxygen saturation is 88%. Patient is presently on propofol. Sedated. Nurses noticing fecal-like matter coming through the NG tube. Patient is severely constipated she was started on soapsuds enemas yesterday. And has a PEG tube. She has also has a stage III sacral decubitus and also stage III wound on the lateral aspect of the right upper thigh. Presently WBC count is 21,900 on vancomycin and Fortaz. Blood sugars are dropping to 75 to start on a D5 today to prevent hypoglycemic episodes. CT head done last night shows mild microvascular changes. On examination right eye pupil is dilated mildly reactive. Left pupil is reacting well. Unable to do neuro examination because patient is sedated. 07/05/2018-patient is still on ventilator pulse ox is 100% on 25% oxygen. Patient ventilator settings are SIMV with tidal volume of 500 PEEP of 5 oxygen saturation of 25%. Decreasing requirements of oxygen. KUB done yesterday suggests significant amount of stool. To give Kayexalate, mag citrate and enemas today to resolve the constipation. No acute events in the last 24 hours. Propofol is turned off this morning. Patient is on a D5 half-normal saline because of hypoglycemia yesterday. Blood sugar is around 94 this morning. NG tube feedings are on hold. 07/06/2018-no acute events in the last 24 hours. Patient is afebrile. Patient's hemoglobin dropped to 7.3 today. Yesterday's hemoglobin is 8.2 plan is to transfuse at least 2 units today. ABG done this morning shows pH of 7.43 PCO2 36 PO2 110 bicarb is 23 this is on room air. Plan to wean her off from the vent today. Plan to do the KUB today before starting the tube feedings. Family members are at bedside they are happy with the care so far. 07/07/2018-patient is successfully extubated yesterday no acute events last night patient is afebrile. She received 2 units of PRBC yesterday. Hemoglobin is 10.4 this morning. Pulse ox is 100% on 2 L blood pressure is 176/66 heart rate in the 70s. Nurse is concerned about patient is more lethargic this morning plan to do the ABG. Reason For Visit: UTI ,DECUB SEPSIS, UREMIA Physical Exam Vital Signs: Temp Pulse Resp BP Pulse Ox 97.7 F 74 16 161/61 H 100 07/07/18 07:30 07/07/18 07:30 07/07/18 07:30 07/07/18 07:30 07/07/18 07:30 Intake & Output 07/06/18 07/07/18 07/08/18 06:59 06:59 06:59 Intake Total 1426 833 Output Total 1530 2970 60 Balance -104 -2137 -60 Weight 62.6 kg 63.2 kg General appearance: PRESENT: no acute distress, other - Look letter check on calling opening her eyes responding appropriately. Head exam: PRESENT: atraumatic Eye exam: PRESENT: other - Pupil is reactive light accommodation. Right pupil is dilated slightly reactive. Ear exam: PRESENT: normal external ear exam Neck exam: ABSENT: carotid bruit, JVD, lymphadenopathy, thyromegaly Respiratory exam: PRESENT: decreased breath sounds Cardiovascular exam: PRESENT: RRR, systolic murmur. ABSENT: diastolic murmur, rubs GI/Abdominal exam: PRESENT: other - PEG tube is in place. Abdomen is soft flat nontender. Rectal exam: PRESENT: deferred Gentrourinary exam: PRESENT: indwelling catheter Extremities exam: PRESENT: other - She has a right AKA and left BKA. Neurological exam: PRESENT: alert, awake, other - Patient is lethargic slowly responding to verbal commands. She had a history of stroke with right-sided weakness.. ABSENT: motor sensory deficit Psychiatric exam: PRESENT: appropriate affect, normal mood. ABSENT: homicidal ideation, suicidal ideation Skin exam: PRESENT: dry, intact, warm, other - And has stage III sacral decubitus no signs of infection and also has a decubitus wound on the lateral aspect of the right upper leg.. ABSENT: cyanosis, rash Results Laboratory Results: 07/07/18 04:05 07/07/18 04:05 07/06/18 07/06/18 07/06/18 08:04 08:04 09:59 WBC 14.3 H RBC 2.67 L Hgb 7.3 L Hct 22.4 L MCV 84 MCH 27.3 MCHC 32.5 RDW 15.0 H Plt Count 227 Seg Neutrophils % 72.5 Lymphocytes % 10.0 L Monocytes % 9.1 Eosinophils % 8.0 H Basophils % 0.4 Absolute Neutrophils 10.4 H Absolute Lymphocytes 1.4 Absolute Monocytes 1.3 Absolute Eosinophils 1.1 H Absolute Basophils 0.1 Sodium 144.8 Potassium 3.3 L Chloride 110 H Carbon Dioxide 21 L Anion Gap 14 BUN 106 H Creatinine 2.13 H Est GFR ( Amer) 28 L Est GFR (Non-Af Amer) 23 L Glucose 144 H Calcium 9.1 Magnesium 3.8 H Total Bilirubin 0.4 AST 25 ALT 107 H Alkaline Phosphatase 77 Total Protein 5.4 L Albumin 2.6 L Blood Type O POSITIVE Antibody Screen NEGATIVE 07/06/18 07/06/18 07/07/18 18:20 23:13 04:05 WBC 13.9 H 14.6 H RBC 3.82 3.66 L Hgb 10.8 L D 10.4 L Hct 32.8 L 31.3 L MCV 86 86 MCH 28.4 28.5 MCHC 33.0 33.3 RDW 14.7 H 14.7 H Plt Count 210 197 Seg Neutrophils % 71.7 68.7 Lymphocytes % 9.2 L 11.7 L Monocytes % 8.9 9.7 Eosinophils % 9.6 H 9.2 H Basophils % 0.6 0.7 Absolute Neutrophils 10.0 H 10.0 H Absolute Lymphocytes 1.3 1.7 Absolute Monocytes 1.2 1.4 Absolute Eosinophils 1.3 H 1.3 H Absolute Basophils 0.1 0.1 Sodium 142.5 Potassium 3.9 Chloride 112 H Carbon Dioxide 20 L Anion Gap 11 BUN 102 H Creatinine 2.07 H Est GFR ( Amer) 29 L Est GFR (Non-Af Amer) 24 L Glucose 149 H Calcium 9.0 Magnesium Total Bilirubin AST ALT Alkaline Phosphatase Total Protein Albumin Blood Type Antibody Screen 07/07/18 04:05 WBC RBC Hgb Hct MCV MCH MCHC RDW Plt Count Seg Neutrophils % Lymphocytes % Monocytes % Eosinophils % Basophils % Absolute Neutrophils Absolute Lymphocytes Absolute Monocytes Absolute Eosinophils Absolute Basophils Sodium 144.7 Potassium 3.7 Chloride 113 H Carbon Dioxide 20 L Anion Gap 12 BUN 96 H Creatinine 2.15 H Est GFR ( Amer) 27 L Est GFR (Non-Af Amer) 23 L Glucose 111 H Calcium 8.7 Magnesium Total Bilirubin 0.6 AST 18 ALT 85 H Alkaline Phosphatase 77 Total Protein 5.4 L Albumin 2.6 L Blood Type Antibody Screen 07/03/18 23:20 Tracheal Aspirate Gram Stain - Final 07/03/18 23:20 Tracheal Aspirate Sputum Culture - Final Mrsa (Meth Resis Staph Aureus) Normal [place] Absent 06/28/18 06/28/18 07/03/18 15:30 15:30 20:05 Creatine Kinase < 20 L 76 CK-MB (CK-2) Troponin I < 0.012 07/03/18 07/04/18 07/04/18 20:05 02:38 02:38 Creatine Kinase 83 CK-MB (CK-2) 4.98 H 6.58 H Troponin I 0.078 0.158 07/04/18 07/04/18 09:44 09:44 Creatine Kinase 43 CK-MB (CK-2) 5.94 H Troponin I 0.273 Impressions: Abdomen/Pelvis CT 07/01/18 00:00 IMPRESSION: 1. Moderate constipation. 2. Left exophytic solid renal lesion has increased in size and now measures 2.1 cm. This could represent complex cyst although a solid mass cannot be excluded. 3. Decubitus ulcer just right of midline overlying the sacrum. Inflammation extends to the level of the lower sacrum and coccyx. Bone involvement cannot be excluded. 4. Subcutaneous edema. Lung Scan-[facility] 07/02/18 13:06 IMPRESSION: Very limited anterior and anterior oblique planar perfusion images on bed bound patient unable to tolerate flat positioning and unable to perform ventilation imaging. Generally nondiagnostic examination without obvious perfusion defect. Recommend CT pulmonary angiogram to further evaluate if there is persistent suspicion for pulmonary embolism. Head CT 07/03/18 00:00 IMPRESSION: No acute intracranial hemorrhage or mass effect. Mild chronic microvascular ischemic change and generalized atrophy. Remote lacunar infarcts about the bilateral lentiform nuclei and left thalamus. TECHNICAL DOCUMENTATION: Quality ID # [id number]: Final reports with documentation of one or more dose reduction techniques (e.g., Automated exposure control, adjustment of the mA and/or kV according to patient size, use of iterative reconstruction technique) copyright 2011 [employer]- All Rights Reserved Chest X-Ray 07/05/18 00:00 IMPRESSION: 1. Endotracheal tube is again noted. The tip of the tube is approximately 1.6 cm proximal to the perlita. Correlation suggested. 2. No acute pulmonary findings. KUB X-Ray 07/06/18 00:00 IMPRESSION: Improved stool burden. No acute radiographic abnormality. Assessment and Plan - Diagnosis (1) Acute and chronic respiratory failure with hypoxia Is this a current diagnosis for this admission?: Yes Plan: Improving. Multifcatorial, likely due to underlying pneumonia and aspiration. Not a candidate for CTA due to worsening renal function, VQ scan sub-optimal due to patient being bedbound. Continue supplemental oxygen. If PO2 drops patient will need to be intubated as she is to altered for BiPAP. Continue empiric antibiotics. 07/03/2018: ABG pH 7.34, PCO2 39.9, PO2 73.3. 07/02/2018: ABG pH 7.34, PCO2 39.1, PO2 48.2. 07/04/2018-patient was transferred to ICU last night because of pulseless electrical activity status post resuscitation for less than a minute she was intubated during the process ABG had 30% oxygen he is pH 7.42 PCO2 35 PO2 52 oxygen saturation is 88.5. Plan is to continue to keep her intubated underscore keep it under sedation/ consultation with Dr. Escobar is going to be requested. plan to repeat the ABG in the morning. 07/05/2018-patient is still intubated propofol is turned off pulse ox 100% on 25% oxygen. ABG this morning is pending. No acute events in the last 24 hours. Patient is afebrile. presently on ceftazadime and vancomycin. ABG today pending. Today's chest x-ray is pending. 07/06/2018-patient is still on mechanical ventilation off the sedatives. Alert awake responding to the verbal commands. ABG on room air shows pH of 7.43 PCO2 36 PO2 110 bicarb is 23. Plan is to wean her off from the vent today. presently on geftazadime and vancomycin. Sputum cultures are showing MRSA urine culture showing MRSA. Chest x-ray done yesterday shows no acute pulmonary pathology n oticed. 07/07/2018-patient is off of mechanical ventilation. Breathing around on. Pulse ox is 100% on 2 L. Plan is to continue scheduled and as needed nebulizations. Presently on ceftazadime/vancomycin. on exam chest bilateral air entry is decreased but no wheezing no crepitations present. (2) CKD (chronic kidney disease) stage 4, GFR 15-29 ml/min Is this a current diagnosis for this admission?: Yes Plan: Worsening stable. Electrolytes within normal limits except for magnesium. Will DC Lasix. 07/03/2018: FiO2 91-97 4 L nasal cannula. I/O 360/900 -540. ABG pH 7.34, PCO2 39.9, PO2 73.3. Sodium 141.7, potassium 4.3, chloride 106, creatinine 2.47, magnesium 3.6, 07/02/2018: Sodium 137.5, potassium 4.3, bicarb 19, creatinine 2.24 up from 1.94, baseline 2.41, Mg 3.4 down from 3.5. Fluid balance -1640. 07/01/2018. sodium 135.4, potassium 4.8, bicarbonate 17, creatinine 1.94 down from 2.54 from admission. Baseline 2.4. Urine culture from 06/30/2018 growing MRSA. BMP tomorrow. Replace electrolytes as needed. 07/04/2018-patient has a stage IV kidney disease creatinine 2 days at 2.28 baseline creatinine is around 2.4. Urine cultures are showing MRSA. Presently on ceftazadime and vancomycin. Potassium is 3.6 stable bicarb is 19. Serum sodium is 141.9. Plan is to repeat the labs tomorrow. Patient has a negative fluid balance of 1100 mL. 07/05/2018-patient serum creatinine today is 2.34. sLightly improved from 2.44 yesterday. Patient is presently on D5 half-normal saline at 75 cc/h. Serum potassium is 3.6 bicarb is 21. Sodium is 148. Plan is to continue the present management. 07/06/2018-patient has today's creatinine is 2.34 today's creatinine is pending. Presently on a D5 half-normal saline at 75 cc/h. Patient has baseline creatinine of around 2.4. Urine culture showing MRSA. Plan is to continue the present management. 07/07/2018-patient serum creatinine today is 2.15. Plan is to start tube feedings yesterday and IV fluids are discontinued because of the severe constipation feedings tube was not started plan to start on a feeding tube as per the protocol today. Hopefully it will improve her creatinine. Her baseline creatinine is around 2.4. (3) Leukocytosis Qualifiers: Leukocytosis type: unspecified Qualified Code(s): D72.829 - Elevated white blood cell count, unspecified Is this a current diagnosis for this admission?: Yes Plan: Improving. Urine culture positive for MRSA. No blood culture available from admission. Continue Fortaz and Vanco Started vancomycin 06/30/2018. Total 4 days of IV antibiotics. 07/03/2018: WBC 17.8, hemoglobin 8.7, platelet 312. ABG pH 7.34, PCO2 39.9, PO2 73.3. Sodium 141.7, potassium 4.3, chloride 106, creatinine 2.47, magnesium 3.6, 07/01/2018. WBC 18.2 down from 30.6 on admission, sodium 135.4, potassium 4.8, bicarbonate 17, creatinine 1.94 down from 2.54 from admission Urine culture from 06/30/2018 growing MRSA. Patient febrile was, altered, leukocytosis on admission urine culture positive for MRSA raises a question of seeding possibly endocarditis or decubitus ulcer. 07/01/2018. 2D echo no vegetations. Ejection fraction 60%. CT pelvis constipation and decubitus ulcer inflammation extending to the sacrum. No sign of osteomyelitis. 07/04/2018-WBC count is 21,900 today. Presently on Fortaz and vancomycin. Urine culture shows MRSA. Blood cultures are negative. T-max is 99.1 today. She has a sacral decubiti and also decubitus ulcer on the right thigh. Echocardiogram was done EF is 60% no evidence of any vegetation no suspicion for vegetation. CT pelvis shows constipation under decubitus ulcer inflammation extending to the sacrum but no signs of osteomyelitis. Plan is to continue the present management. 07/05/2018-patient's WBC count is 16,200 today. Improved from 21,900 yesterday. Presently on Fortaz and IV vancomycin. Urine culture shows MRSA. Blood cultures are negative. Afebrile. Temperature is 98.1 today. Pulse rate is 80. Plan is to continue the present management. 07/06/2018-WBC count came down to 14,300. WBC count is improving. Plan is to continue Ceftazadime and IV vancomycin. Sputum culture on the urine culture showing MRSA. Patient has also has sacral wounds as per the surgery there is no evidence of infection . T-max is 98.8 today. 07/07/2018-patient WBC count is 14,600 today. Steadily improving. Presently on c ceftazadime and vancomycin. Patient is afebrile. T-max is 97.7. Sputum culture shows MRSA urine culture shows MRSA. (4) Acute encephalopathy Is this a current diagnosis for this admission?: Yes Plan: Multifactorial, most likely due to underlying infectious, worsening azotemia, narcotics and hypoxia. 07/03/2018: SBP of 130-150, T-max 99.3, HR 95-157, RR 16-20, FiO2 91-97 4 L nasal cannula. I/O 360/900 -540. WBC 17.8, hemoglobin 8.7, platelet 312. ABG pH 7.34, PCO2 39.9, PO2 73.3. Sodium 141.7, potassium 4.3, chloride 106, creatinine 2.47, magnesium 3.6, 07/02/2018: SBP 136-170, T-max 98.4, pulse 70-94, SPO2 97 to 102 L NC, WBC 19.6, platelet 341, Hgb 9.4, 137.5, potassium 4.3, bicarb 19, creatinine 2.24 up from 1.94, baseline 2.41. 07/01/2018. SBP 139-170. T-max 98.2. Pulse 69-86. SPO2 100% on 2 L nasal cannula FiO2 28%. WBC 18.2 down from 30.6 on admission, sodium 135.4, potassium 4.8, bicarbonate 17, creatinine 1.94 down from 2.54 from admission Urine culture from 06/30/2018 growing MRSA. Continue treating the underlying infectious process. Blood cultures no growth x 72 hours. 07/04/2018-patient admitted with altered mental status and sepsis. Presently intubated on sedation. Unable to assisted neuro evaluation. Acute e ncephalopathy/altered mental status most likely multifactorial including sepsis and electrolyte abnormalities. 07/05/2018-patient was admitted for acute encephalopathy/altered mental status. Patient is on mechanical ventilation and propofol was turned off this morning. Pulse ox is 100% on 25% oxygen. Altered mental status most likely secondary to electrolyte abnormalities and underlying sepsis. She also has history of strokes and dementia. 07/06/2018-patient is alert and awake and responding to verbal commands very well. Still intubated but off the sedation. Acute encephalopathy/altered mental status is resolving. 07/07/2018-patient looks lethargic this morning. Responding slowly to verbal commands. Patient has history of stroke involving the right side. Able to give her name able to tell where she is but unable to get the date of . Plan to do the ABG this morning and repeat the CT head without contrast. (5) Diabetes Qualifiers: Diabetes mellitus adjunct faculty for medical terminology insulin use: with adjunct faculty for medical terminology use Diabetes mellitus complication status: with kidney complications Chronic kidney disease stage: stage 4 (severe) Is this a current diagnosis for this admission?: No Plan: 06/29/2018-patient has a history of type 2 diabetes mellitus. Plan to start her on insulin sliding scale. Patient is not on diabetic medications at home. diatery consult is going to be requested and to check for hemoglobin A1c tomorrow. 07/04/2018-patient has a history of type 2 diabetes nurses also insulin sliding scale is n.p.o. we will under intubated. Plan to start her on D5 half-normal saline because blood sugars are dropping to 75 this morning. 07/05/2018-patient has history of type 2 diabetes mellitus blood sugar this morning is 94 , tube feedings are on hold. Presently on D5 half-normal saline at 50 cc/h to prevent hypoglycemic episodes. 07/06/2018-patient is presently on D5 half-normal saline to prevent hypoglycemia. Plan to do the KUB today if it is okay , going to start back on tube feeds with Glucerna. 07/07/2018-patient's latest blood sugar is 111. To start back on feeding tubes today Glucerna and to check the blood sugars every 6 hours the sliding scale coverage. (6) UTI (urinary tract infection) Qualifiers: Urinary tract infection type: acute cystitis Hematuria presence: with hematuria Qualified Code(s): N30.01 - Acute cystitis with hematuria Is this a current diagnosis for this admission?: Yes Plan: Urine culture positive for MRSA. History of recurrent E. coli sensitive UTIs. Continue Fortaz Stat blood cultures. Started vancomycin 06/30/2018. Total 4 days of IV antibiotics. Urine culture from 06/30/2018 growing MRSA. 07/04/2018-urine cultures positive for MRSA patient has history of recurrent E. coli's causing urinary tract infection. Present on Fortaz and vancomycin. Blood cultures are negative. Plan is to continue the present management. 07/05/2018-urine culture is positive for MRSA sensitivity to vancomycin. Present on Fortaz and vancomycin blood cultures are negative plan is to continue the present management. 07/06/2018-urine culture is positive for MRSA sensitive to the vancomycin. Presently on Ceftazadime and vancomycin. Plan is to continue present management. 07/07/2018-patient's urine culture is positive for MRSA. On vancomycin and ceftazadime (7) Sacral decubitus ulcer, stage III Is this a current diagnosis for this admission?: No Plan: Patient has sacral decubitus stage III. Active discharge or drainage will collection. Was evaluated by surgery and at this point no drainage she will collection was observed. 07/01/2018. CT abdomen and pelvis. Moderate constipation. Decubitus ulcer just right of midline overlying the sacrum. Inflammation extends to the level of the lower sacrum and coccyx. Bone involvement cannot be excluded. 07/04/2018-patient has a decubitus ulcer over the sacrum and she has also decubitus ulcer on the lateral aspect of the right upper thigh. Present on Fortaz and vancomycin .surgical team signed off on her yesterday. 07/05/2018-patient has a stage III sacral decubitus and also decubitus ulcer on the lateral aspect of the right upper thigh. Surgery signed off on her. Presently on Fortaz and vancomycin. 07/07/2018-patient has a sacral decubitus stage III and decubitus wound on the lateral aspect of the right upper thigh wounds looks clean no signs of infection. Surgeons signed off from the case. (8) PEA (Pulseless electrical activity) Is this a current diagnosis for this admission?: Yes Plan: 07/04/2018-patient has pulseless electrical activity last night transferred to ICU status post intubation. Resuscitation lasted less than a minute. She was given EPI. Patient is intubated at this moment blood pressure is 157/62 heart rate is around 100. cause is unknown at this point. 07/05/2018-patient was transferred to ICU for pulseless electrical activity rapid response was called she was coded for less than 1 minute. Presently intubated no cardiac arrhythmias are noted. Patient is doing well on mechanical ventilation plan is to start weaning process from tomorrow. 07/07/2018-patient was transferred to ICU for pulseless electric activity, underwent resuscitation for less than a minute, status post intubation and extubation no cardiac arrhythmias noticed for the last 48 hours. (9) Hx of AKA (above knee amputation) Qualifiers: Laterality: right Qualified Code(s): Z89.611 - Acquired absence of right leg above knee Is this a current diagnosis for this admission?: No (10) Hx of BKA Qualifiers: Laterality: left Qualified Code(s): Z89.512 - Acquired absence of left leg below knee Is this a current diagnosis for this admission?: No - Time Time Spent with patient: 25-34 minutes Medications reviewed and adjusted accordingly: Yes Anticipated discharge: SNF
[2018-07-07 09:10] LABS: ARTERIAL BLOOD BASE EXCESS -2.4 mmol/L; ARTERIAL BLOOD HCO3 21.3 mmol/L (20-24); ARTERIAL BLOOD O2 SATURATION 76.2 % (94-98); ARTERIAL BLOOD PCO2 33.3 mmHg (35-45); ARTERIAL BLOOD PH 7.42 (7.35-7.45); ARTERIAL BLOOD TOTAL CO2 22.3 mmol/L (21-25)
[2018-07-07 09:11] LABS: ARTERIAL BLOOD FIO2 2L
[2018-07-07 09:15] LABS: ARTERIAL BLOOD PO2 39.5 mmHg (80-100)
--- NOTE | 2018-07-07 10:07 | RADIOLOGY REPORT (SQ) ---
EXAM DESCRIPTION: CT HEAD WITHOUT COMPLETED DATE/TIME: 07/07/2018 9:49 am REASON FOR STUDY: altered mental status COMPARISON: CT brain 07/03/2018, 03/10/2016 MRI brain 03/28/2018 TECHNIQUE: Axial images acquired through the brain without intravenous contrast. Images reviewed wi th bone, brain and subdural windows. Additional sagittal and coronal reconstructions were generated. Images stored on PACS. All CT scanners at this facility use dose modulation, iterative reconstruction, and/or weight based d osing when appropriate to reduce radiation dose to as low as reasonably achievable (ALARA). [facility]: Dose Right [facility]: CareDose [facility]: Dose Right [facility]: Teradose 4D [facility]: [employer] RADIATION DOSE: CT Rad equipment meets quality standard of care and radiation dose reduction techniq ues were employed. CTDIvol: 48.5 mGy. DLP: 854 mGy-cm. mGy. LIMITATIONS: None. FINDINGS: VENTRICLES: Normal size and contour. CEREBRUM: No masses. No hemorrhage. No midline shift. No evidence for acute infarction. Old lacunar infarcts are present in the left thalamus and right basal ganglia. There is biparietal s mall vessel ischemic change in the hemispheric white matter right greater than left. These findings are stable compared to prior CT brain 06/25/2018. The right parietal white disease was acute on the M RI 03/28/2018. CEREBELLUM: No masses. No hemorrhage. No alteration of density. No evidence for acute infarction. EXTRAAXIAL SPACES: No fluid collections. No masses. ORBITS AND GLOBE: No intra- or extraconal masses. Post bilateral cataract surgery. CALVARIUM: No fracture. PARANASAL SINUSES: Air-fluid levels in the bilateral sphenoid sinus and right mastoid air cells from acute inflammatory change SOFT TISSUES: No mass or hematoma. OTHER: No other significant finding. IMPRESSION: No CT evidence of acute large territory ischemic change. Sphenoid sinusitis. Right mastoid air cell fluid. EVIDENCE OF ACUTE STROKE: NO. COMMENT: Quality ID # [id number]: Final reports with documentation of one or more dose reduction techniques (e.g., Automated exposure control, adjustment of the mA and/or kV according to patient size, use of iterative reconstruction technique) TECHNICAL DOCUMENTATION: JOB ID: [id number] [employer]- All Rights Reserved Reading location - IP/workstation name: [email or web address]
[2018-07-07 10:39] LABS: ARTERIAL BLOOD BASE EXCESS -0.3 mmol/L; ARTERIAL BLOOD H2CO3 1.05 mmol/L (1.05-1.35); ARTERIAL BLOOD HCO3 23.2 mmol/L (20-24); ARTERIAL BLOOD O2 SATURATION 95.3 % (94-98); ARTERIAL BLOOD PCO2 34.8 mmHg (35-45); ARTERIAL BLOOD PH 7.44 (7.35-7.45); ARTERIAL BLOOD PO2 72.6 mmHg (80-100); ARTERIAL BLOOD TOTAL CO2 24.3 mmol/L (21-25)
[2018-07-07 10:41] LABS: ARTERIAL BLOOD FIO2 2L
[2018-07-07] MEDS: INSULIN LISPRO 100 UNIT/ML 3 ML VIAL SUBCUT SCH ×4 (11:23→21:43)
[2018-07-07] MEDS: LUBIPROSTONE 24 MCG CAPSULE PO SCH (11:24)
[2018-07-07] MEDS: NA PHOS,M-B/NA PHOS,DI-BA (ADULT) 133 ML ENEMA PR SCH ×2 (11:26→21:35)
[2018-07-07] MEDS: ASPIRIN 81 MG TABLET, ENT COATED PO SCH ×2 (11:26→21:35)
[2018-07-07] MEDS: CHOLECALCIFEROL (D3) 1,000 UNIT TABLET PO SCH (11:33)
[2018-07-07] MEDS: CETIRIZINE 5 MG TABLET PO SCH (11:33)
[2018-07-07] MEDS: CLOPIDOGREL BISULFATE 75 MG TABLET PO SCH (11:35)
[2018-07-07] MEDS: DOCUSATE SODIUM 100 MG/10 ML UDC NG SCH (11:36)
[2018-07-07] MEDS: FONDAPARINUX SODIUM INJ 2.5 MG/0.5 ML DISP.SYRIN SUBCUT SCH (11:37)
[2018-07-07] MEDS: VANCOMYCIN HCL 750 MG in DEXTROSE 5%-WATER 250 ML IV SCH (11:57)
[2018-07-07] MEDS: FENTANYL CITRATE INJ/PF 100 MCG/2 ML AMPUL IV PRN (13:08)
[2018-07-07] MEDS ORDERED: HYDRALAZINE HCL INJ/PF 20 MG/1 ML SDV ONE ×2 (13:20→13:22)
[2018-07-07] MEDS ORDERED: HYDRALAZINE HCL INJ/PF 20 MG/1 ML SDV IV PRN (13:35)
[2018-07-07] MEDS ORDERED: LABETALOL HCL INJ 20 MG/4 ML DISP.SYRIN IV PRN (14:26)
[2018-07-07] MEDS: ENALAPRILAT DIHYDRATE INJ/PF 2.5 MG/2 ML SDV IV PRN (16:01)
[2018-07-07] MEDS: ATORVASTATIN CALCIUM 40 MG TABLET PO SCH (21:41)
[2018-07-08 04:55] LABS: ABSOLUTE BASOPHILS # (AUTO) 0.1 10^3/uL (0.0-0.2); ABSOLUTE EOSINOPHILS # (AUTO) 1.2 10^3/uL (0.0-0.6); ABSOLUTE LYMPHOCYTES (AUTO) 1.4 10^3/uL (0.5-4.7); ABSOLUTE NEUT (AUTO) 9.8 10^3/uL (1.7-8.2); BASOPHILS % (AUTO) 0.7 % (0-2); EOSINOPHILS % (AUTO) 8.7 % (0-6); HEMATOCRIT 31.4 % (36.0-47.0); HEMOGLOBIN 10.3 g/dL (12.0-15.5); LYMPHOCYTES % (AUTO) 10.3 % (13-45); MEAN CORPUSCULAR HGB CONC 32.8 g/dL (32.0-36.0); MEAN CORPUSCULAR VOLUME 85 fl (80-97); MONOCYTES % (AUTO) 7.3 % (3-13); PLATELET COUNT 155 10^3/uL (150-450); RED BLOOD COUNT 3.67 10^6/uL (3.72-5.28); RED CELL DISTRIBUTION WIDTH 14.8 % (11.5-14.0); TOTAL CELLS COUNTED % (AUTO) 100 %; WHITE BLOOD COUNT 13.4 10^3/uL (4.0-10.5)
[2018-07-08 05:14] LABS: ALANINE AMINOTRANSFERASE 64 U/L (9-52); ALBUMIN 2.6 g/dL (3.5-5.0); ALKALINE PHOSPHATASE 68 U/L (38-126); ANION GAP 10 (5-19); ASPARTATE AMINO TRANSFERASE 20 U/L (14-36); BILIRUBIN,DIRECT 0.5 mg/dL (0.0-0.4); BILIRUBIN,TOTAL 0.6 mg/dL (0.2-1.3); BLOOD UREA NITROGEN 94 mg/dL (7-20); CALCIUM 8.9 mg/dL (8.4-10.2); CARBON DIOXIDE 21 mmol/L (22-30); CHLORIDE 113 mmol/L (98-107); GLUCOSE 84 mg/dL (75-110); POTASSIUM 3.9 mmol/L (3.6-5.0); SODIUM 143.6 mmol/L (137-145); TOTAL PROTEIN 5.5 g/dL (6.3-8.2)
[2018-07-08] MEDS: GABAPENTIN 100 MG CAPSULE PO SCH ×3 (05:40→22:07)
[2018-07-08] MEDS: ENALAPRILAT DIHYDRATE INJ/PF 2.5 MG/2 ML SDV IV PRN ×2 (08:10→14:21)
--- NOTE | 2018-07-08 08:36 | PDOC PROGRESS REPORT ---
Subjective Progress Note for:: 07/08/18 Subjective:: 68 year old female with a past medical history of CVA with immobility, peripheral vascular disease status post bilateral lower extremity amputation, chronic kidney disease, diabetes, chronic UTI and stage III sacral decubiti. She is brought to the emergency room for altered mental status found to have leukocytosis, acute on chronic renal failure, pyuria, 4 x 4 centimeter stage IV sacral decubiti, 2 x 3 cm stage II decubiti at the gluteal fold bilaterally. Patient admits to pain but is unable to localize. She received empiric antibiotic and refer to the hospitalist for admission. 07/04/2018-patient was brought to the ICU last night she has PEA ,status post resuscitation lasted for less than a minute she was given EPI and intubated. EKG shows questionable new RBBB. Troponin went up to 0.158 may be because of the resuscitation effort. Patient is presently on 30% oxygen pH is 7.42/PO2 35 PCO2 52 oxygen saturation is 88%. Patient is presently on propofol. Sedated. Nurses noticing fecal-like matter coming through the NG tube. Patient is severely constipated she was started on soapsuds enemas yesterday. And has a PEG tube. She has also has a stage III sacral decubitus and also stage III wound on the lateral aspect of the right upper thigh. Presently WBC count is 21,900 on vancomycin and Fortaz. Blood sugars are dropping to 75 to start on a D5 today to prevent hypoglycemic episodes. CT head done last night shows mild microvascular changes. On examination right eye pupil is dilated mildly reactive. Left pupil is reacting well. Unable to do neuro examination because patient is sedated. 07/05/2018-patient is still on ventilator pulse ox is 100% on 25% oxygen. Patient ventilator settings are SIMV with tidal volume of 500 PEEP of 5 oxygen saturation of 25%. Decreasing requirements of oxygen. KUB done yesterday suggests significant amount of stool. To give Kayexalate, mag citrate and enemas today to resolve the constipation. No acute events in the last 24 hours. Propofol is turned off this morning. Patient is on a D5 half-normal saline because of hypoglycemia yesterday. Blood sugar is around 94 this morning. NG tube feedings are on hold. 07/06/2018-no acute events in the last 24 hours. Patient is afebrile. Patient's hemoglobin dropped to 7.3 today. Yesterday's hemoglobin is 8.2 plan is to transfuse at least 2 units today. ABG done this morning shows pH of 7.43 PCO2 36 PO2 110 bicarb is 23 this is on room air. Plan to wean her off from the vent today. Plan to do the KUB today before starting the tube feedings. Family members are at bedside they are happy with the care so far. 07/07/2018-patient is successfully extubated yesterday no acute events last night patient is afebrile. She received 2 units of PRBC yesterday. Hemoglobin is 10.4 this morning. Pulse ox is 100% on 2 L blood pressure is 176/66 heart rate in the 70s. Nurse is concerned about patient is more lethargic this morning plan to do the ABG. 07/08/2018-no acute events in the last 24 hours. Patient is afebrile. Patient still lethargic. She is able to give her name. She is saying she is okay. She has occasional twitches involving the left the arm. She had a residual of 200 yesterday NG tube feedings running at 5 cc/h. To do the KUB this morning. Afebrile. She has a PEG tube, she has a rectal tube , she has a indwelling Carrillo's catheter. Reason For Visit: UTI ,DECUB SEPSIS, UREMIA Physical Exam Vital Signs: Temp Pulse Resp BP Pulse Ox 98.4 F 78 15 166/70 H 94 07/08/18 06:00 07/07/18 23:50 07/08/18 06:00 07/08/18 05:10 07/08/18 06:00 Intake & Output 07/07/18 07/08/18 07/09/18 06:59 06:59 06:59 Intake Total 833 840 Output Total 2970 1225 Balance -2137 -385 Weight 63.2 kg 59.8 kg General appearance: PRESENT: no acute distress, other - Lethargic but awake alert. Head exam: PRESENT: atraumatic Eye exam: PRESENT: other - Right pupil is dilated react to light accommodation, left pupil reacting well to light and accommodation. Mouth exam: PRESENT: moist, tongue midline Teeth exam: PRESENT: poor dentation Neck exam: ABSENT: carotid bruit, JVD, lymphadenopathy, thyromegaly Respiratory exam: PRESENT: decreased breath sounds Cardiovascular exam: PRESENT: RRR, systolic murmur, tachycardia. ABSENT: diastolic murmur, rubs GI/Abdominal exam: PRESENT: other - Patient has a feeding tube abdominal soft nontender no organomegaly. Rectal exam: PRESENT: other - She has a rectal tube. Gentrourinary exam: PRESENT: indwelling catheter Extremities exam: PRESENT: other - Right AKA and left BKA. Neurological exam: PRESENT: alert, awake, other - And history of history of stroke affecting the right side of the body. Psychiatric exam: PRESENT: appropriate affect, normal mood. ABSENT: homicidal ideation, suicidal ideation Skin exam: PRESENT: other - And has stage III sacral decubitus and decubitus ul cer on the lateral aspect of the right upper thigh. Results Laboratory Results: 07/08/18 03:35 07/08/18 03:35 07/07/18 07/07/18 07/08/18 08:45 10:10 03:35 WBC RBC Hgb Hct MCV MCH MCHC RDW Plt Count Seg Neutrophils % Lymphocytes % Monocytes % Eosinophils % Basophils % Absolute Neutrophils Absolute Lymphocytes Absolute Monocytes Absolute Eosinophils Absolute Basophils Carbonic Acid 1.00 L 1.05 HCO3/H2CO3 Ratio 21:1 22:1 ABG pH 7.42 7.44 ABG pCO2 33.3 L 34.8 L ABG pO2 39.5 L* 72.6 L ABG HCO3 21.3 23.2 ABG O2 Saturation 76.2 L 95.3 ABG Base Excess -2.4 -0.3 FiO2 2L 2L Sodium 143.6 Potassium 3.9 Chloride 113 H Carbon Dioxide 21 L Anion Gap 10 BUN 94 H Creatinine 2.08 H Est GFR ( Amer) 28 L Est GFR (Non-Af Amer) 24 L Glucose 84 Calcium 8.9 Magnesium 3.5 H Total Bilirubin 0.6 AST 20 ALT 64 H Alkaline Phosphatase 68 Total Protein 5.5 L Albumin 2.6 L 07/08/18 03:35 WBC 13.4 H RBC 3.67 L Hgb 10.3 L Hct 31.4 L MCV 85 MCH 28.0 MCHC 32.8 RDW 14.8 H Plt Count 155 Seg Neutrophils % 73.0 Lymphocytes % 10.3 L Monocytes % 7.3 Eosinophils % 8.7 H Basophils % 0.7 Absolute Neutrophils 9.8 H Absolute Lymphocytes 1.4 Absolute Monocytes 1.0 Absolute Eosinophils 1.2 H Absolute Basophils 0.1 Carbonic Acid HCO3/H2CO3 Ratio ABG pH ABG pCO2 ABG pO2 ABG HCO3 ABG O2 Saturation ABG Base Excess FiO2 Sodium Potassium Chloride Carbon Dioxide Anion Gap BUN Creatinine Est GFR ( Amer) Est GFR (Non-Af Amer) Glucose Calcium Magnesium Total Bilirubin AST ALT Alkaline Phosphatase Total Protein Albumin 06/28/18 06/28/18 07/03/18 15:30 15:30 20:05 Creatine Kinase < 20 L 76 CK-MB (CK-2) Troponin I < 0.012 07/03/18 07/04/18 07/04/18 20:05 02:38 02:38 Creatine Kinase 83 CK-MB (CK-2) 4.98 H 6.58 H Troponin I 0.078 0.158 07/04/18 07/04/18 09:44 09:44 Creatine Kinase 43 CK-MB (CK-2) 5.94 H Troponin I 0.273 Impressions: Abdomen/Pelvis CT 07/01/18 00:00 IMPRESSION: 1. Moderate constipation. 2. Left exophytic solid renal lesion has increased in size and now measures 2.1 cm. This could represent complex cyst although a solid mass cannot be excluded. 3. Decubitus ulcer just right of midline overlying the sacrum. Inflammation extends to the level of the lower sacrum and coccyx. Bone involvement cannot be excluded. 4. Subcutaneous edema. Lung Scan-VQ NM 07/02/18 13:06 IMPRESSION: Very limited anterior and anterior oblique planar perfusion images on bed bound patient unable to tolerate flat positioning and unable to perform ventilation imaging. Generally nondiagnostic examination without obvious perfusion defect. Recommend CT pulmonary angiogram to further evaluate if there is persistent suspicion for pulmonary embolism. Chest X-Ray 07/05/18 00:00 IMPRESSION: 1. Endotracheal tube is again noted. The tip of the tube is approximately 1.6 cm proximal to the perlita. Correlation suggested. 2. No acute pulmonary findings. KUB X-Ray 07/06/18 00:00 IMPRESSION: Improved stool burden. No acute radiographic abnormality. Head CT 07/07/18 00:00 IMPRESSION: No CT evidence of acute large territory ischemic change. Sphenoid sinusitis. Right mastoid air cell fluid. EVIDENCE OF ACUTE STROKE: NO. Assessment and Plan - Diagnosis (1) Acute and chronic respiratory failure with hypoxia Is this a current diagnosis for this admission?: Yes Plan: Improving. Multifcatorial, likely due to underlying pneumonia and aspiration. Not a candidate for CTA due to worsening renal function, VQ scan sub-optimal due to patient being bedbound. Continue supplemental oxygen. If PO2 drops patient will need to be intubated as she is to altered for BiPAP. Continue empiric antibiotics. 07/03/2018: ABG pH 7.34, PCO2 39.9, PO2 73.3. 07/02/2018: ABG pH 7.34, PCO2 39.1, PO2 48.2. 07/04/2018-patient was transferred to ICU last night because of pulseless electrical activity status post resuscitation for less than a minute she was intubated during the process ABG had 30% oxygen he is pH 7.42 PCO2 35 PO2 52 oxygen saturation is 88.5. Plan is to continue to keep her intubated underscore keep it under sedation/ consultation with Dr. Escobar is going to be requested. plan to repeat the ABG in the morning. 07/05/2018-patient is still intubated propofol is turned off pulse ox 100% on 25% oxygen. ABG this morning is pending. No acute events in the last 24 hours. Patient is afebrile. presently on ceftazadime and vancomycin. ABG today pending. Today's chest x-ray is pending. 07/06/2018-patient is still on mechanical ventilation off the sedatives. Alert awake responding to the verbal commands. ABG on room air shows pH of 7.43 PCO2 36 PO2 110 bicarb is 23. Plan is to wean her off from the vent today. presently on geftazadime and vancomycin. Sputum cultures are showing MRSA urine culture showing MRSA. Chest x-ray done yesterday shows no acute pulmonary pathology noticed. 07/07/2018-patient is off of mechanical ventilation. Breathing around on. Pulse ox is 100% on 2 L. Plan is to continue scheduled and as needed nebulizations. Presently on ceftazadime/vancomycin. on exam chest bilateral air entry is decreased but no wheezing no crepitations present. 07/08/2018-patient admitted to the ICU from the floor for acute on chronic respiratory failure hypoxia. Status post intubation and extubation. She was extubated yesterday. ABG done this morning shows pH of 7.44/PCO2 34.8/PO2 72.6 with pulse ox of 95%. Patient is presently on 2 L oxygen via nasal cannula. (2) CKD (chronic kidney disease) stage 4, GFR 15-29 ml/min Is this a current diagnosis for this admission?: Yes Plan: Worsening stable. Electrolytes within normal limits except for magnesium. Will DC Lasix. 07/03/2018: FiO2 91-97 4 L nasal cannula. I/O 360/900 -540. ABG pH 7.34, PCO2 39.9, PO2 73.3. Sodium 141.7, potassium 4.3, chloride 106, creatinine 2.47, magnesium 3.6, 07/02/2018: Sodium 137.5, potassium 4.3, bicarb 19, creatinine 2.24 up from 1.94, baseline 2.41, Mg 3.4 down from 3.5. Fluid balance -1640. 07/01/2018. sodium 135.4, potassium 4.8, bicarbonate 17, creatinine 1.94 down from 2.54 from admission. Baseline 2.4. Urine culture from 06/30/2018 growing MRSA. BMP tomorrow. Replace electrolytes as needed. 07/04/2018-patient has a stage IV kidney disease creatinine 2 days at 2.28 baseline creatinine is around 2.4. Urine cultures are showing MRSA. Presently on ceftazadime and vancomycin. Potassium is 3.6 stable bicarb is 19. Serum sodium is 141.9. Plan is to repeat the labs tomorrow. Patient has a negative fluid balance of 1100 mL. 07/05/2018-patient serum creatinine today is 2.34. sLightly improved from 2.44 yesterday. Patient is presently on D5 half-normal saline at 75 cc/h. Serum potassium is 3.6 bicarb is 21. Sodium is 148. Plan is to continue the present management. 07/06/2018-patient has today's creatinine is 2.34 today's creatinine is pending. Presently on a D5 half-normal saline at 75 cc/h. Patient has baseline creatinine of around 2.4. Urine culture showing MRSA. Plan is to continue the present management. 07/07/2018-patient serum creatinine today is 2.15. Plan is to start tube feedings yesterday and IV fluids are discontinued because of the severe constipation feedings tube was not started plan to start on a feeding tube as per the protocol today. Hopefully it will improve her creatinine. Her baseline creatinine is around 2.4. 07/08/2018-serum creatinine today is 2.08 improving. Her baseline creatinine is around 2.4 NG tube feedings are running at 5 cc/h. Plan to do the KUB if there is no obstruction plan is to increase the rate of tube feedings. Patient has also has a rectal tube. Acute kidney injury secondary to poor oral intake is resolving. (3) Leukocytosis Qualifiers: Leukocytosis type: unspecified Qualified Code(s): D72.829 - Elevated white blood cell count, unspecified Is this a current diagnosis for this admission?: Yes Plan: Improving. Urine culture positive for MRSA. No blood culture available from admission. Continue Fortaz and Vanco Started vancomycin 06/30/2018. Total 4 days of IV antibiotics. 07/03/2018: WBC 17.8, hemoglobin 8.7, platelet 312. ABG pH 7.34, PCO2 39.9, PO2 73.3. Sodium 141.7, potassium 4.3, chloride 106, creatinine 2.47, magnesium 3.6, 07/01/2018. WBC 18.2 down from 30.6 on admission, sodium 135.4, potassium 4.8, bicarbonate 17, creatinine 1.94 down from 2.54 from admission Urine culture from 06/30/2018 growing MRSA. Patient febrile was, altered, leukocytosis on admission urine culture positive for MRSA raises a question of seeding possibly endocarditis or decubitus ulcer. 07/01/2018. 2D echo no vegetations. Ejection fraction 60%. CT pelvis constipation and decubitus ulcer inflammation extending to the sacrum. No sign of osteomyelitis. 07/04/2018-WBC count is 21,900 today. Presently on Fortaz and vancomycin. Urine culture shows MRSA. Blood cultures are negative. T-max is 99.1 today. She has a sacral decubiti and also decubitus ulcer on the right thigh. Echocardiogram was done EF is 60% no evidence of any vegetation no suspicion for vegetation. CT pelvis shows constipation under decubitus ulcer inflammation extending to the sacrum but no signs of osteomyelitis. Plan is to continue the present management. 07/05/2018-patient's WBC count is 16,200 today. Improved from 21,900 yesterday. Presently on Fortaz and IV vancomycin. Urine culture shows MRSA. Blood cultures are negative. Afebrile. Temperature is 98.1 today. Pulse rate is 80. Plan is to continue the present management. 07/06/2018-WBC count came down to 14,300. WBC count is improving. Plan is to continue Ceftazadime and IV vancomycin. Sputum culture on the urine culture showing MRSA. Patient has also has sacral wounds as per the surgery there is no evidence of infection . T-max is 98.8 today. 07/07/2018-patient WBC count is 14,600 today. Steadily improving. Presently on c ceftazadime and vancomycin. Patient is afebrile. T-max is 97.7. Sputum culture shows MRSA urine culture shows MRSA. 07/08/2018-patient's WBC count is 13,400. Leukocytosis is resolving. Patient is presently on vancomycin. blood culture ,urine culture showing MRSA , patient is on contact isolation. (4) Acute encephalopathy Is this a current diagnosis for this admission?: Yes Plan: Multifactorial, most likely due to underlying infectious, worsening azotemia, narcotics and hypoxia. 07/03/2018: SBP of 130-150, T-max 99.3, HR 95-157, RR 16-20, FiO2 91-97 4 L nasal cannula. I/O 360/900 -540. WBC 17.8, hemoglobin 8.7, platelet 312. ABG pH 7.34, PCO2 39.9, PO2 73.3. Sodium 141.7, potassium 4.3, chloride 106, creatinine 2.47, magnesium 3.6, 07/02/2018: SBP 136-170, T-max 98.4, pulse 70-94, SPO2 97 to 102 L NC, WBC 19.6, platelet 341, Hgb 9.4, 137.5, potassium 4.3, bicarb 19, creatinine 2.24 up from 1.94, baseline 2.41. 07/01/2018. SBP 139-170. T-max 98.2. Pulse 69-86. SPO2 100% on 2 L nasal cannula FiO2 28%. WBC 18.2 down from 30.6 on admission, sodium 135.4, potassium 4.8, bicarbonate 17, creatinine 1.94 down from 2.54 from admission Urine culture from 06/30/2018 growing MRSA. Continue treating the underlying infectious process. Blood cultures no growth x 72 hours. 07/04/2018-patient admitted with altered mental status and sepsis. Presently intubated on sedation. Unable to assisted neuro evaluation. Acute encephalopathy/altered mental status most likely multifactorial including sepsis and electrolyte abnormalities. 07/05/2018-patient was admitted for acute encephalopathy/altered mental status. Patient is on mechanical ventilation and propofol was turned off this morning. Pulse ox is 100% on 25% oxygen. Altered mental status most likely secondary to electrolyte abnormalities and underlying sepsis. She also has history of strokes and dementia. 07/06/2018-patient is alert and awake and responding to verbal commands very well. Still intubated but off the sedation. Acute encephalopathy/altered mental status is resolving. 07/07/2018-patient looks lethargic this morning. Responding slowly to verbal commands. Patient has history of stroke involving the right side. Able to give her name able to tell where she is but unable to get the date of . Plan to do the ABG this morning and repeat the CT head without contrast. 07/08/2018-patient is alert awake still lethargic. Able to give her name and saying she is fine. Occasional twitching involving the left shoulder. CT head done yesterday negative for acute pathology. 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 Plan to start her on insulin sliding scale. Patient is not on diabetic medications at home. diatery consult is going to be requested and to check for hemoglobin A1c tomorrow. 07/04/2018-patient has a history of type 2 diabetes nurses also insulin sliding scale is n.p.o. we will under intubated. Plan to start her on D5 half-normal saline because blood sugars are dropping to 75 this morning. 07/05/2018-patient has history of type 2 diabetes mellitus blood sugar this morning is 94 , tube feedings are on hold. Presently on D5 half-normal saline at 50 cc/h to prevent hypoglycemic episodes. 07/06/2018-patient is presently on D5 half-normal saline to prevent hypoglycemia. Plan to do the KUB today if it is okay , going to start back on tube feeds with Glucerna. 07/07/2018-patient's latest blood sugar is 111. To start back on feeding tubes today Glucerna and to check the blood sugars every 6 hours the sliding scale coverage. 07/08/2018-patient latest blood sugar is 84. Presently on insulin sliding scale receiving Glucerna. Plan is to continue to check the blood sugars every 6 hours. (6) UTI (urinary tract infection) Qualifiers: Urinary tract infection type: acute cystitis Hematuria presence: with hematuria Qualified Code(s): N30.01 - Acute cystitis with hematuria Is this a current diagnosis for this admission?: Yes Plan: Urine culture positive for MRSA. History of recurrent E. coli sensitive UTIs. Continue Fortaz Stat blood cultures. Started vancomycin 06/30/2018. Total 4 days of IV antibiotics. Urine culture from 06/30/2018 growing MRSA. 07/04/2018-urine cultures positive for MRSA patient has history of recurrent E. coli's causing urinary tract infection. Present on Fortaz and vancomycin. Blood cultures are negative. Plan is to continue the present management. 07/05/2018-urine culture is positive for MRSA sensitivity to vancomycin. Present on Fortaz and vancomycin blood cultures are negative plan is to continue the present management. 07/06/2018-urine culture is positive for MRSA sensitive to the vancomycin. Presently on Ceftazadime and vancomycin. Plan is to continue present management. 07/07/2018-patient's urine culture is positive for MRSA. On vancomycin and ceftazadime 07/08/2018-patient's urine culture is positive for MRSA presently on IV vancomycin. (7) Sacral decubitus ulcer, stage III Is this a current diagnosis for this admission?: No Plan: Patient has sacral decubitus stage III. Active discharge or drainage will collection. Was evaluated by surgery and at this point no drainage she will collection was observed. 07/01/2018. CT abdomen and pelvis. Moderate constipation. Decubitus ulcer just right of midline overlying the sacrum. Inflammation extends to the level of the lower sacrum and coccyx. Bone involvement cannot be e xcluded. 07/04/2018-patient has a decubitus ulcer over the sacrum and she has also decubitus ulcer on the lateral aspect of the right upper thigh. Present on Fortaz and vancomycin .surgical team signed off on her yesterday. 07/05/2018-patient has a stage III sacral decubitus and also decubitus ulcer on the lateral aspect of the right upper thigh. Surgery signed off on her. Presently on Fortaz and vancomycin. 07/07/2018-patient has a sacral decubitus stage III and decubitus wound on the lateral aspect of the right upper thigh wounds looks clean no signs of infection. Surgeons signed off from the case. 07/08/2018-patient has a stage III sacral decubitus, decubitus wound on the lateral aspect of the right upper thigh. No signs of infection. Surgical team signed off. (8) PEA (Pulseless electrical activity) Is this a current diagnosis for this admission?: Yes (9) Hx of AKA (above knee amputation) Qualifiers: Laterality: right Qualified Code(s): Z89.611 - Acquired absence of right leg above knee Is this a current diagnosis for this admission?: No (10) Hx of BKA Qualifiers: Laterality: left Qualified Code(s): Z89.512 - Acquired absence of left leg below knee Is this a current diagnosis for this admission?: No - Time Time Spent with patient: 15-24 minutes Medications reviewed and adjusted accordingly: Yes Anticipated discharge: [facility]
[2018-07-08] MEDS: IPRATROPIUM/ALBUTEROL 0.5-2.5 MG/3 ML AMPUL NEB SCH ×2 (08:52→17:26)
[2018-07-08] MEDS: AMLODIPINE BESYLATE 5 MG TABLET PO SCH ×2 (09:14→09:15)
[2018-07-08] MEDS: NA PHOS,M-B/NA PHOS,DI-BA (ADULT) 133 ML ENEMA PR SCH (09:14)
[2018-07-08] MEDS: ASPIRIN 81 MG TABLET, ENT COATED PO SCH ×3 (09:16→22:07)
[2018-07-08] MEDS: DOCUSATE SODIUM 100 MG/10 ML UDC NG SCH (09:16)
[2018-07-08] MEDS: CLOPIDOGREL BISULFATE 75 MG TABLET PO SCH (09:16)
[2018-07-08] MEDS: CHOLECALCIFEROL (D3) 1,000 UNIT TABLET PO SCH (09:16)
[2018-07-08] MEDS: FONDAPARINUX SODIUM INJ 2.5 MG/0.5 ML DISP.SYRIN SUBCUT SCH (09:16)
[2018-07-08] MEDS: INSULIN LISPRO 100 UNIT/ML 3 ML VIAL SUBCUT SCH ×4 (09:17→22:01)
[2018-07-08] MEDS: LUBIPROSTONE 24 MCG CAPSULE PO SCH (09:17)
[2018-07-08] MEDS: CETIRIZINE 5 MG TABLET PO SCH (09:17)
--- NOTE | 2018-07-08 10:25 | RADIOLOGY REPORT (SQ) ---
EXAM DESCRIPTION: CHEST SINGLE VIEW COMPLETED DATE/TIME: 07/08/2018 10:14 am REASON FOR STUDY: pneumonia COMPARISON: 07/05/2018 NUMBER OF VIEWS: One view. TECHNIQUE: Single frontal radiographic image of the chest acquired. LIMITATIONS: None. FINDINGS: LUNGS AND PLEURA: Right-sided pleural effusion has developed. The patient has been extuba molina and NG tube removed. The left lung field remains grossly clear. There is some pleural thickenin g along the left lateral chest wall. No pneumothorax. MEDIASTINUM AND HILAR STRUCTURES: Stable heart size and mediastinal structures. HEART AND VASCULAR STRUCTURES: Stable appearance. SUPPORT DEVICES: Appropriate location without change. BONES: Unchanged. OTHER: No other significant finding. IMPRESSION: Increasing right-sided pleural effusion underlying airspace disease cannot be excluded. TECHNICAL DOCUMENTATION: JOB ID: [id number] [employer]- All Rights Reserved Reading location - IP/workstation name: [email or web address]
--- NOTE | 2018-07-08 10:26 | RADIOLOGY REPORT (SQ) ---
EXAM DESCRIPTION: KUB/ABDOMEN (SINGLE VIEW) COMPLETED DATE/TIME: 07/08/2018 10:14 am REASON FOR STUDY: ileus COMPARISON: 07/06/2018 NUMBER OF VIEWS: One view. TECHNIQUE: Supine radiographic image of the abdomen acquired. LIMITATIONS: None. FINDINGS: BOWEL GAS PATTERN: Normal bowel gas pattern. No dilated loops. Evidence constipation is n o longer identified. CALCIFICATIONS: No suspicious calcifications. SOFT TISSUES: No gross mass or suggestion of organomegaly. HARDWARE: None in the abdomen. BONES: No acute fracture. No worrisome bone lesions. OTHER: No other significant finding. IMPRESSION: NO RADIOGRAPHIC EVIDENCE FOR ACUTE ABDOMINAL DISEASE. TECHNICAL DOCUMENTATION: JOB ID: [id number] [employer]- All Rights Reserved Reading location - IP/workstation name: [email or web address]
[2018-07-08 13:23] LABS: ARTERIAL BLOOD BASE EXCESS -0.3 mmol/L; ARTERIAL BLOOD H2CO3 1.09 mmol/L (1.05-1.35); ARTERIAL BLOOD HCO3 23.6 mmol/L (20-24); ARTERIAL BLOOD O2 SATURATION 89.8 % (94-98); ARTERIAL BLOOD PCO2 36.1 mmHg (35-45); ARTERIAL BLOOD PH 7.43 (7.35-7.45); ARTERIAL BLOOD TOTAL CO2 24.7 mmol/L (21-25)
[2018-07-08 13:37] LABS: ARTERIAL BLOOD FIO2 60%
[2018-07-08] MEDS: ATORVASTATIN CALCIUM 40 MG TABLET PO SCH (22:07)
[2018-07-09] MEDS: IPRATROPIUM/ALBUTEROL 0.5-2.5 MG/3 ML AMPUL NEB SCH ×3 (00:18→16:20)
[2018-07-09] MEDS: ENALAPRILAT DIHYDRATE INJ/PF 2.5 MG/2 ML SDV IV PRN ×2 (01:20→17:15)
[2018-07-09 04:47] LABS: ABSOLUTE BASOPHILS # (AUTO) 0.1 10^3/uL (0.0-0.2); ABSOLUTE EOSINOPHILS # (AUTO) 0.8 10^3/uL (0.0-0.6); ABSOLUTE LYMPHOCYTES (AUTO) 1.2 10^3/uL (0.5-4.7); BASOPHILS % (AUTO) 0.6 % (0-2); HEMATOCRIT 32.8 % (36.0-47.0); HEMOGLOBIN 10.8 g/dL (12.0-15.5); LYMPHOCYTES % (AUTO) 8.8 % (13-45); MEAN CORPUSCULAR HEMOGLOBIN 28.3 pg (27.0-33.4); MEAN CORPUSCULAR VOLUME 86 fl (80-97); MONOCYTES % (AUTO) 6.8 % (3-13); PLATELET COUNT 202 10^3/uL (150-450); RED BLOOD COUNT 3.83 10^6/uL (3.72-5.28); RED CELL DISTRIBUTION WIDTH 15.1 % (11.5-14.0); SEGMENTED NEUTROPHILS % (AUTO) 77.8 % (42-78); TOTAL CELLS COUNTED % (AUTO) 100 %; WHITE BLOOD COUNT 14.2 10^3/uL (4.0-10.5)
[2018-07-09 05:08] LABS: ALANINE AMINOTRANSFERASE 48 U/L (9-52); ALBUMIN 2.6 g/dL (3.5-5.0); ALKALINE PHOSPHATASE 81 U/L (38-126); ANION GAP 11 (5-19); ASPARTATE AMINO TRANSFERASE 12 U/L (14-36); BILIRUBIN,DIRECT 0.4 mg/dL (0.0-0.4); BILIRUBIN,TOTAL 0.6 mg/dL (0.2-1.3); BLOOD UREA NITROGEN 88 mg/dL (7-20); CALCIUM 8.9 mg/dL (8.4-10.2); CARBON DIOXIDE 24 mmol/L (22-30); CHLORIDE 111 mmol/L (98-107); GLUCOSE 108 mg/dL (75-110); POTASSIUM 3.5 mmol/L (3.6-5.0); SODIUM 145.5 mmol/L (137-145); TOTAL PROTEIN 5.5 g/dL (6.3-8.2)
[2018-07-09] MEDS: GABAPENTIN 100 MG CAPSULE PO SCH ×3 (05:59→22:21)
[2018-07-09] MEDS ORDERED: DEXTROSE 5%-NORMAL SALINE 1,000 ML IV PRN (08:12)
--- NOTE | 2018-07-09 08:22 | PDOC PROGRESS REPORT ---
Subjective Progress Note for:: 07/09/18 Subjective:: 68 year old female with a past medical history of CVA with immobility, peripheral vascular disease status post bilateral lower extremity amputation, chronic kidney disease, diabetes, chronic UTI and stage III sacral decubiti. She is brought to the emergency room for altered mental status found to have leukocytosis, acute on chronic renal failure, pyuria, 4 x 4 centimeter stage IV sacral decubiti, 2 x 3 cm stage II decubiti at the gluteal fold bilaterally. Patient admits to pain but is unable to localize. She received empiric antibiotic and refer to the hospitalist for admission. 07/04/2018-patient was brought to the ICU last night she has PEA ,status post resuscitation lasted for less than a minute she was given EPI and intubated. EKG shows questionable new RBBB. Troponin went up to 0.158 may be because of the resuscitation effort. Patient is presently on 30% oxygen pH is 7.42/PO2 35 PCO2 52 oxygen saturation is 88%. Patient is presently on propofol. Sedated. Nurses noticing fecal-like matter coming through the NG tube. Patient is severely constipated she was started on soapsuds enemas yesterday. And has a PEG tube. She has also has a stage III sacral decubitus and also stage III wound on the lateral aspect of the right upper thigh. Presently WBC count is 21,900 on vancomycin and Fortaz. Blood sugars are dropping to 75 to start on a D5 today to prevent hypoglycemic episodes. CT head done last night shows mild microvascular changes. On examination right eye pupil is dilated mildly reactive. Left pupil is reacting well. Unable to do neuro examination because patient is sedated. 07/05/2018-patient is still on ventilator pulse ox is 100% on 25% oxygen. Patient ventilator settings are SIMV with tidal volume of 500 PEEP of 5 oxygen saturation of 25%. Decreasing requirements of oxygen. KUB done yesterday suggests significant amount of stool. To give Kayexalate, mag citrate and enemas today to resolve the constipation. No acute events in the last 24 hours. Propofol is turned off this morning. Patient is on a D5 half-normal saline because of hypoglycemia yesterday. Blood sugar is around 94 this morning. NG tube feedings are on hold. 07/06/2018-no acute events in the last 24 hours. Patient is afebrile. Patient's hemoglobin dropped to 7.3 today. Yesterday's hemoglobin is 8.2 plan is to transfuse at least 2 units today. ABG done this morning shows pH of 7.43 PCO2 36 PO2 110 bicarb is 23 this is on room air. Plan to wean her off from the vent today. Plan to do the KUB today before starting the tube feedings. Family members are at bedside they are happy with the care so far. 07/07/2018-patient is successfully extubated yesterday no acute events last night patient is afebrile. She received 2 units of PRBC yesterday. Hemoglobin is 10.4 this morning. Pulse ox is 100% on 2 L blood pressure is 176/66 heart rate in the 70s. Nurse is concerned about patient is more lethargic this morning plan to do the ABG. 07/08/2018-no acute events in the last 24 hours. Patient is afebrile. Patient still lethargic. She is able to give her name. She is saying she is okay. She has occasional twitches involving the left the arm. She had a residual of 200 yesterday NG tube feedings running at 5 cc/h. To do the KUB this morning. Afebrile. She has a PEG tube, she has a rectal tube , she has a indwelling Carrillo's catheter. 07/09/2018-no acute events in the last 24 hours. Patient is afebrile. On BiPAP with 35% oxygen pulse ox is around 98%. Comfortable in the bed responding to the verbal commands by nodding her head. Not in distress. Blood pressure still around 167/80. Plan to increase amlodipine to 10 mg daily. Urine output is decreased since yesterday plan is to give D5 normal saline at 50 cc/h. if The patient is stable enough today I may move her to [facility] tomorrow. Reason For Visit: UTI ,DECUB SEPSIS, UREMIA Physical Exam Vital Signs: Temp Pulse Resp BP Pulse Ox 97.3 F 82 15 167/74 H 92 07/09/18 07:10 07/09/18 01:20 07/09/18 07:10 07/09/18 07:10 07/09/18 07:10 Intake & Output 07/08/18 07/09/18 07/10/18 06:59 06:59 06:59 Intake Total 840 320 Output Total 1225 1300 Balance -385 -980 Weight 59.8 kg 58.9 kg General appearance: PRESENT: no acute distress Head exam: PRESENT: atraumatic Eye exam: PRESENT: other - Patient's right pupil is dilated responding to the li ght accommodation. Pupil is normal size responding to light, and accommodation. Mouth exam: PRESENT: moist, tongue midline Neck exam: ABSENT: carotid bruit, JVD, lymphadenopathy, thyromegaly Respiratory exam: PRESENT: clear to auscultation nicole. ABSENT: rales, rhonchi, wheezes Cardiovascular exam: PRESENT: RRR, systolic murmur, tachycardia. ABSENT: diastolic murmur, rubs GI/Abdominal exam: PRESENT: other - PEG tube is in place. Rectal exam: PRESENT: deferred Extremities exam: PRESENT: other - Right AKA and left BKA. Neurological exam: PRESENT: alert, awake, other - Has history of stroke with right-sided weakness. Skin exam: PRESENT: other - And has a sacral decubitus stage III and decubitus ulcer on the lateral aspect of the right upper thigh. Results Laboratory Results: 07/09/18 04:15 07/09/18 04:15 07/08/18 07/09/18 07/09/18 13:10 04:15 04:15 WBC 14.2 H RBC 3.83 Hgb 10.8 L Hct 32.8 L MCV 86 MCH 28.3 MCHC 33.0 RDW 15.1 H Plt Count 202 Seg Neutrophils % 77.8 Lymphocytes % 8.8 L Monocytes % 6.8 Eosinophils % 6.0 Basophils % 0.6 Absolute Neutrophils 11.0 H Absolute Lymphocytes 1.2 Absolute Monocytes 1.0 Absolute Eosinophils 0.8 H Absolute Basophils 0.1 Carbonic Acid 1.09 HCO3/H2CO3 Ratio 21:1 ABG pH 7.43 ABG pCO2 36.1 ABG pO2 55.0 L ABG HCO3 23.6 ABG O2 Saturation 89.8 L ABG Base Excess -0.3 FiO2 60% Sodium 145.5 H Potassium 3.5 L Chloride 111 H Carbon Dioxide 24 Anion Gap 11 BUN 88 H Creatinine 2.23 H Est GFR ( Amer) 26 L Est GFR (Non-Af Amer) 22 L Glucose 108 Calcium 8.9 Magnesium 3.5 H Total Bilirubin 0.6 AST 12 L ALT 48 Alkaline Phosphatase 81 Total Protein 5.5 L Albumin 2.6 L 06/28/18 06/28/18 07/03/18 15:30 15:30 20:05 Creatine Kinase < 20 L 76 CK-MB (CK-2) Troponin I < 0.012 07/03/18 07/04/18 07/04/18 20:05 02:38 02:38 Creatine Kinase 83 CK-MB (CK-2) 4.98 H 6.58 H Troponin I 0.078 0.158 07/04/18 07/04/18 09:44 09:44 Creatine Kinase 43 CK-MB (CK-2) 5.94 H Troponin I 0.273 Impressions: Abdomen/Pelvis CT 07/01/18 00:00 IMPRESSION: 1. Moderate constipation. 2. Left exophytic solid renal lesion has increased in size and now measures 2.1 cm. This could represent complex cyst although a solid mass cannot be excluded. 3. Decubitus ulcer just right of midline overlying the sacrum. Inflammation extends to the level of the lower sacrum and coccyx. Bone involvement cannot be excluded. 4. Subcutaneous edema. Lung Scan-VQ NM 07/02/18 13:06 IMPRESSION: Very limited anterior and anterior oblique planar perfusion images on bed bound patient unable to tolerate flat positioning and unable to perform ventilation imaging. Generally nondiagnostic examination without obvious perfusion defect. Recommend CT pulmonary angiogram to further evaluate if there is persistent suspicion for pulmonary embolism. Head CT 07/07/18 00:00 IMPRESSION: No CT evidence of acute large territory ischemic change. Sphenoid sinusitis. Right mastoid air cell fluid. EVIDENCE OF ACUTE STROKE: NO. Chest X-Ray 07/08/18 00:00 IMPRESSION: Increasing right-sided pleural effusion underlying airspace disease cannot be excluded. KUB X-Ray 07/08/18 00:00 IMPRESSION: NO RADIOGRAPHIC EVIDENCE FOR ACUTE ABDOMINAL DISEASE. Assessment and Plan - Diagnosis (1) Acute and chronic respiratory failure with hypoxia Is this a current diagnosis for this admission?: Yes Plan: Improving. Multifcatorial, likely due to underlying pneumonia and aspiration. Not a candidate for CTA due to worsening renal function, VQ scan sub-optimal due to patient being bedbound. Continue supplemental oxygen. If PO2 drops patient will need to be intubated as she is to altered for BiPAP. Continue empiric antibiotics. 07/03/2018: ABG pH 7.34, PCO2 39.9, PO2 73.3. 07/02/2018: ABG pH 7.34, PCO2 39.1, PO2 48.2. 07/04/2018-patient was transferred to ICU last night because of pulseless electrical activity status post resuscitation for less than a minute she was intubated during the process ABG had 30% oxygen he is pH 7.42 PCO2 35 PO2 52 ox ygen saturation is 88.5. Plan is to continue to keep her intubated underscore keep it under sedation/ consultation with Dr. Escobar is going to be requested. plan to repeat the ABG in the morning. 07/05/2018-patient is still intubated propofol is turned off pulse ox 100% on 25% oxygen. ABG this morning is pending. No acute events in the last 24 hours. Patient is afebrile. presently on ceftazadime and vancomycin. ABG today pending. Today's chest x-ray is pending. 07/06/2018-patient is still on mechanical ventilation off the sedatives. Alert awake responding to the verbal commands. ABG on room air shows pH of 7.43 PCO2 36 PO2 110 bicarb is 23. Plan is to wean her off from the vent today. presently on ceftazadime and vancomycin. Sputum cultures are showing MRSA urine culture showing MRSA. Chest x-ray done yesterday shows no acute pulmonary pathology noticed. 07/07/2018-patient is off of mechanical ventilation. Breathing around on. Pulse ox is 100% on 2 L. Plan is to continue scheduled and as needed nebulizations. Presently on ceftazadime/vancomycin. on exam chest bilateral air entry is decreased but no wheezing no crepitations present. 07/08/2018-patient admitted to the ICU from the floor for acute on chronic respiratory failure hypoxia. Status post intubation and extubation. She was extubated yesterday. ABG done this morning shows pH of 7.44/PCO2 34.8/PO2 72.6 with pulse ox of 95%. Patient is presently on 2 L oxygen via nasal cannula. 07/09/2018-patient was admitted with acute respiratory failure with hypoxia. Sputum culture and carpals are positive for MRSA. Presently on IV vancomycin. Extubated successfully present on BiPAP. On examination chest bilateral entry was decreased no wheezing no crepitations. Socks is a 96% on 35% oxygen. (2) CKD (chronic kidney disease) stage 4, GFR 15-29 ml/min Is this a current diagnosis for this admission?: Yes Plan: Worsening stable. Electrolytes within normal limits except for magnesium. Will DC Lasix. 07/03/2018: FiO2 91-97 4 L nasal cannula. I/O 360/900 -540. ABG pH 7.34, PCO2 39.9, PO2 73.3. Sodium 141.7, potassium 4.3, chloride 106, creatinine 2.47, magnesium 3.6, 07/02/2018: Sodium 137.5, potassium 4.3, bicarb 19, creatinine 2.24 up from 1.94, baseline 2.41, Mg 3.4 down from 3.5. Fluid balance -1640. 07/01/2018. sodium 135.4, potassium 4.8, bicarbonate 17, creatinine 1.94 down from 2.54 from admission. Baseline 2.4. Urine culture from 06/30/2018 growing MRSA. BMP tomorrow. Replace electrolytes as needed. 07/04/2018-patient has a stage IV kidney disease creatinine 2 days at 2.28 baseline creatinine is around 2.4. Urine cultures are showing MRSA. Presently on ceftazadime and vancomycin. Potassium is 3.6 stable bicarb is 19. Serum sodium is 141.9. Plan is to repeat the labs tomorrow. Patient has a negative fluid balance of 1100 mL. 07/05/2018-patient serum creatinine today is 2.34. sLightly improved from 2.44 yesterday. Patient is presently on D5 half-normal saline at 75 cc/h. Serum potassium is 3.6 bicarb is 21. Sodium is 148. Plan is to continue the present management. 07/06/2018-patient has today's creatinine is 2.34 today's creatinine is pending. Presently on a D5 half-normal saline at 75 cc/h. Patient has baseline creatinine of around 2.4. Urine culture showing MRSA. Plan is to continue the present management. 07/07/2018-patient serum creatinine today is 2.15. Plan is to start tube feedings yesterday and IV fluids are discontinued because of the severe constipation feedings tube was not started plan to start on a feeding tube as per the protocol today. Hopefully it will improve her creatinine. Her baseline creatinine is around 2.4. 07/08/2018-serum creatinine today is 2.08 improving. Her baseline creatinine is around 2.4 NG tube feedings are running at 5 cc/h. Plan to do the KUB if there is no obstruction plan is to increase the rate of tube feedings. Patient has also has a rectal tube. Acute kidney injury secondary to poor oral intake is resolving. 07/09/2018-serum creatinine today is 2.33 and urinary output is decreased. Patient is only on minimal amount of PEG feeding. With concerns about the large amount of aspiration. KUB was negative yesterday. Plan is to increase the tube feedings to 30 cc/h and start on D5 normal saline at 50 cc/h. Plan to recheck the labs tomorrow. (3) Leukocytosis Qualifiers: Leukocytosis type: unspecified Qualified Code(s): D72.829 - Elevated white blood cell count, unspecified Is this a current diagnosis for this admission?: Yes Plan: Improving. Urine culture positive for MRSA. No blood culture available from admission. Continue Fortaz and Vanco Started vancomycin 06/30/2018. Total 4 days of IV antibiotics. 07/03/2018: WBC 17.8, hemoglobin 8.7, platelet 312. ABG pH 7.34, PCO2 39.9, PO2 73.3. Sodium 141.7, potassium 4.3, chloride 106, creatinine 2.47, magnesium 3.6, 07/01/2018. WBC 18.2 down from 30.6 on admission, sodium 135.4, potassium 4.8, bicarbonate 17, creatinine 1.94 down from 2.54 from admission Urine culture from 06/30/2018 growing MRSA. Patient febrile was, altered, leukocytosis on admission urine culture positive for MRSA raises a question of seeding possibly endocarditis or decubitus ulcer. 07/01/2018. 2D echo no vegetations. Ejection fraction 60%. CT pelvis constipation and decubitus ulcer inflammation extending to the sacrum. No sign of osteomyelitis. 07/04/2018-WBC count is 21,900 today. Presently on Fortaz and vancomycin. Urine culture shows MRSA. Blood cultures are negative. T-max is 99.1 today. She has a sacral decubiti and also decubitus ulcer on the right thigh. Echocardiogram was done EF is 60% no evidence of any vegetation no suspicion for vegetation. CT pelvis shows constipation under decubitus ulcer inflammation extending to the sacrum but no signs of osteomyelitis. Plan is to continue the present management. 07/05/2018-patient's WBC count is 16,200 today. Improved from 21,900 yesterday. Presently on Fortaz and IV vancomycin. Urine culture shows MRSA. Blood cultures are negative. Afebrile. Temperature is 98.1 today. Pulse rate is 80. Plan is to continue the present management. 07/06/2018-WBC count came down to 14,300. WBC count is improving. Plan is to continue Ceftazadime and IV vancomycin. Sputum culture on the urine culture showing MRSA. Patient has also has sacral wounds as per the surgery there is no evidence of infection . T-max is 98.8 today. 07/07/2018-patient WBC count is 14,600 today. Steadily improving. Presently on c ceftazadime and vancomycin. Patient is afebrile. T-max is 97.7. Sputum culture shows MRSA urine culture shows MRSA. 07/08/2018-patient's WBC count is 13,400. Leukocytosis is resolving. Patient is presently on vancomycin. sputum culture ,urine culture showing MRSA , patient is on contact isolation. 07/09/2018-WBC count is 14,200 today presently in IV vancomycin. Tracheal aspirate and urine culture showing MRSA. Febrile. Temperature 97.3. Respiratory to 15. (4) Acute encephalopathy Is this a current diagnosis for this admission?: Yes Plan: Multifactorial, most likely due to underlying infectious, worsening azotemia, narcotics and hypoxia. 07/03/2018: SBP of 130-150, T-max 99.3, HR 95-157, RR 16-20, FiO2 91-97 4 L nasal cannula. I/O 360/900 -540. WBC 17.8, hemoglobin 8.7, platelet 312. ABG pH 7.34, PCO2 39.9, PO2 73.3. Sodium 141.7, potassium 4.3, chloride 106, creatinine 2.47, magnesium 3.6, 07/02/2018: SBP 136-170, T-max 98.4, pulse 70-94, SPO2 97 to 102 L NC, WBC 19.6, platelet 341, Hgb 9.4, 137.5, potassium 4.3, bicarb 19, creatinine 2.24 up from 1.94, baseline 2.41. 07/01/2018. SBP 139-170. T-max 98.2. Pulse 69-86. SPO2 100% on 2 L nasal cannula FiO2 28%. WBC 18.2 down from 30.6 on admission, sodium 135.4, potassium 4.8, bicarbonate 17, creatinine 1.94 down from 2.54 from admission Urine culture from 06/30/2018 growing MRSA. Continue treating the underlying infectious process. Blood cultures no growth x 72 hours. 07/04/2018-patient admitted with altered mental status and sepsis. Presently intubated on sedation. Unable to assisted neuro evaluation. Acute encephalopathy/altered mental status most likely multifactorial including sepsis and electrolyte abnormalities. 07/05/2018-patient was admitted for acute encephalopathy/altered mental status. Patient is on mechanical ventilation and propofol was turned off this morning. Pulse ox is 100% on 25% oxygen. Altered mental status most likely secondary to electrolyte abnormalities and underlying sepsis. She also has history of strokes and dementia. 07/06/2018-patient is alert and awake and responding to verbal commands very well. Still intubated but off the sedation. Acute encephalopathy/altered mental status is resolving. 07/07/2018-patient looks lethargic this morning. Responding slowly to verbal commands. Patient has history of stroke involving the right side. Able to give her name able to tell where she is but unable to get the date of . Plan to do the ABG this morning and repeat the CT head without contrast. 07/08/2018-patient is alert awake still lethargic. Able to give her name and saying she is fine. Occasional twitching involving the left shoulder. CT head done yesterday negative for acute pathology. 07/09/2018-patient is more alert more awake today. Acute encephalopathy/altered mental status is resolving. Latest CT head was negative for acute changes. 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 Plan to start her on insulin sliding scale. Patient is not on diabetic medications at home. diatery consult is going to be requested and to check for hemoglobin A1c tomorrow. 07/04/2018-patient has a history of type 2 diabetes nurses also insulin sliding scale is n.p.o. we will under intubated. Plan to start her on D5 half-normal saline because blood sugars are dropping to 75 this morning. 07/05/2018-patient has history of type 2 diabetes mellitus blood sugar this morning is 94 , tube feedings are on hold. Presently on D5 half-normal saline at 50 cc/h to prevent hypoglycemic episodes. 07/06/2018-patient is presently on D5 half-normal saline to prevent hypoglycemia. Plan to do the KUB today if it is okay , going to start back on tube feeds with Glucerna. 07/07/2018-patient's latest blood sugar is 111. To start back on feeding tubes today Glucerna and to check the blood sugars every 6 hours the sliding scale coverage. 07/08/2018-patient latest blood sugar is 84. Presently on insulin sliding scale receiving Glucerna. Plan is to continue to check the blood sugars every 6 hours. 07/09/2018-patient's latest blood sugar is 108 on insulin sliding scale receiving Glucerna. checking the blood sugars every 6 hours with sliding scale coverage. (6) UTI (urinary tract infection) Qualifiers: Urinary tract infection type: acute cystitis Hematuria presence: with hematuria Qualified Code(s): N30.01 - Acute cystitis with hematuria Is this a current diagnosis for this admission?: Yes Plan: Urine culture positive for MRSA. History of recurrent E. coli sensitive UTIs. Continue Fortaz Stat blood cultures. Started vancomycin 06/30/2018. Total 4 days of IV antibiotics. Urine culture from 06/30/2018 growing MRSA. 07/04/2018-urine cultures positive for MRSA patient has history of recurrent E. coli's causing urinary tract infection. Present on Fortaz and vancomycin. Blood cultures are negative. Plan is to continue the present management. 07/05/2018-urine culture is positive for MRSA sensitivity to vancomycin. Present on Fortaz and vancomycin blood cultures are negative plan is to continue the present management. 07/06/2018-urine culture is positive for MRSA sensitive to the vancomycin. Presently on Ceftazadime and vancomycin. Plan is to continue present ma nagement. 07/07/2018-patient's urine culture is positive for MRSA. On vancomycin and ceftazadime 07/08/2018-patient's urine culture is positive for MRSA presently on IV vancomycin. 07/09/2018-urine culture is positive for MRSA presently on IV vancomycin. Plan is to complete the antibiotic therapy. (7) Sacral decubitus ulcer, stage III Is this a current diagnosis for this admission?: No (8) PEA (Pulseless electrical activity) Is this a current diagnosis for this admission?: Yes (9) Hx of AKA (above knee amputation) Qualifiers: Laterality: right Qualified Code(s): Z89.611 - Acquired absence of right leg above knee Is this a current diagnosis for this admission?: No (10) Hx of BKA Qualifiers: Laterality: left Qualified Code(s): Z89.512 - Acquired absence of left leg below knee Is this a current diagnosis for this admission?: No - Time Time Spent with patient: 35 or more minutes Medications reviewed and adjusted accordingly: Yes Anticipated discharge: SN[facility]
[2018-07-09] MEDS ORDERED: 1/2 NORMAL SALINE 1,000 ML IV PRN ×2 (08:42→18:09)
[2018-07-09] MEDS: INSULIN LISPRO 100 UNIT/ML 3 ML VIAL SUBCUT SCH ×3 (08:56→17:50)
[2018-07-09] MEDS: ASPIRIN 81 MG TABLET, ENT COATED PO SCH ×2 (10:44→22:21)
[2018-07-09] MEDS: FONDAPARINUX SODIUM INJ 2.5 MG/0.5 ML DISP.SYRIN SUBCUT SCH (10:44)
[2018-07-09] MEDS: AMLODIPINE BESYLATE 5 MG TABLET PO SCH (10:44)
[2018-07-09] MEDS: CLOPIDOGREL BISULFATE 75 MG TABLET PO SCH (10:44)
[2018-07-09] MEDS: DOCUSATE SODIUM 100 MG/10 ML UDC NG SCH (10:45)
[2018-07-09] MEDS: CHOLECALCIFEROL (D3) 1,000 UNIT TABLET PO SCH (10:45)
[2018-07-09] MEDS: LUBIPROSTONE 24 MCG CAPSULE PO SCH (10:45)
[2018-07-09] MEDS: CLONIDINE 0.3 MG/24 HR PATCH.TDWK TD SCH (10:45)
[2018-07-09] MEDS: CETIRIZINE 5 MG TABLET PO SCH (10:52)
[2018-07-09 11:52] LABS: VANCOMYCIN,TROUGH 22.2 ug/mL (5.0-20.0)
[2018-07-09] MEDS: VANCOMYCIN HCL 750 MG in DEXTROSE 5%-WATER 250 ML IV SCH (17:52)
[2018-07-09] MEDS: ATORVASTATIN CALCIUM 40 MG TABLET PO SCH (22:21)
[2018-07-10] MEDS: INSULIN LISPRO 100 UNIT/ML 3 ML VIAL SUBCUT SCH ×4 (00:07→17:59)
[2018-07-10] MEDS: IPRATROPIUM/ALBUTEROL 0.5-2.5 MG/3 ML AMPUL NEB SCH ×3 (00:34→16:36)
[2018-07-10 04:29] LABS: ANION GAP 10 (5-19); BLOOD UREA NITROGEN 80 mg/dL (7-20); CALCIUM 8.9 mg/dL (8.4-10.2); CARBON DIOXIDE 23 mmol/L (22-30); CHLORIDE 110 mmol/L (98-107); GLUCOSE 119 mg/dL (75-110); POTASSIUM 3.5 mmol/L (3.6-5.0)
[2018-07-10] MEDS: GABAPENTIN 100 MG CAPSULE PO SCH ×3 (05:39→22:41)
--- NOTE | 2018-07-10 09:04 | PDOC PROGRESS REPORT ---
Subjective Progress Note for:: 07/10/18 Subjective:: 68 year old female with a past medical history of CVA with immobility, peripheral vascular disease status post bilateral lower extremity amputation, chronic kidney disease, diabetes, chronic UTI and stage III sacral decubiti. She is brought to the emergency room for altered mental status found to have leukocytosis, acute on chronic renal failure, pyuria, 4 x 4 centimeter stage IV sacral decubiti, 2 x 3 cm stage II decubiti at the gluteal fold bilaterally. Patient admits to pain but is unable to localize. She received empiric antibiotic and refer to the hospitalist for admission. 07/04/2018-patient was brought to the ICU last night she has PEA ,status post resuscitation lasted for less than a minute she was given EPI and intubated. EKG shows questionable new RBBB. Troponin went up to 0.158 may be because of the resuscitation effort. Patient is presently on 30% oxygen pH is 7.42/PO2 35 PCO2 52 oxygen saturation is 88%. Patient is presently on propofol. Sedated. Nurses noticing fecal-like matter coming through the NG tube. Patient is severely constipated she was started on soapsuds enemas yesterday. And has a PEG tube. She has also has a stage III sacral decubitus and also stage III wound on the lateral aspect of the right upper thigh. Presently WBC count is 21,900 on vancomycin and Fortaz. Blood sugars are dropping to 75 to start on a D5 today to prevent hypoglycemic episodes. CT head done last night shows mild microvascular changes. On examination right eye pupil is dilated mildly reactive. Left pupil is reacting well. Unable to do neuro examination because patient is sedated. 07/05/2018-patient is still on ventilator pulse ox is 100% on 25% oxygen. Patient ventilator settings are SIMV with tidal volume of 500 PEEP of 5 oxygen saturation of 25%. Decreasing requirements of oxygen. KUB done yesterday suggests significant amount of stool. To give Kayexalate, mag citrate and enemas today to resolve the constipation. No acute events in the last 24 hours. Propofol is turned off this morning. Patient is on a D5 half-normal saline because of hypoglycemia yesterday. Blood sugar is around 94 this morning. NG tube feedings are on hold. 07/06/2018-no acute events in the last 24 hours. Patient is afebrile. Patient's hemoglobin dropped to 7.3 today. Yesterday's hemoglobin is 8.2 plan is to transfuse at least 2 units today. ABG done this morning shows pH of 7.43 PCO2 36 PO2 110 bicarb is 23 this is on room air. Plan to wean her off from the vent today. Plan to do the KUB today before starting the tube feedings. Family members are at bedside they are happy with the care so far. 07/07/2018-patient is successfully extubated yesterday no acute events last night patient is afebrile. She received 2 units of PRBC yesterday. Hemoglobin is 10.4 this morning. Pulse ox is 100% on 2 L blood pressure is 176/66 heart rate in the 70s. Nurse is concerned about patient is more lethargic this morning plan to do the ABG. 07/08/2018-no acute events in the last 24 hours. Patient is afebrile. Patient still lethargic. She is able to give her name. She is saying she is okay. She has occasional twitches involving the left the arm. She had a residual of 200 yesterday NG tube feedings running at 5 cc/h. To do the KUB this morning. Afebrile. She has a PEG tube, she has a rectal tube , she has a indwelling Carrillo's catheter. 07/09/2018-no acute events in the last 24 hours. Patient is afebrile. On BiPAP with 35% oxygen pulse ox is around 98%. Comfortable in the bed responding to the verbal commands by nodding her head. Not in distress. Blood pressure still around 167/80. Plan to increase amlodipine to 10 mg daily. Urine output is decreased since yesterday plan is to give D5 normal saline at 50 cc/h. if The patient is stable enough today I may move her to [facility] tomorrow. 07/10/2018-no acute events in the last 24 hours. Patient is afebrile. Pulse ox is 93% on 3 L. Comfortably in the bed responded to the verbal commands. Patient is stable enough to go to the IMCU. Reason For Visit: UTI ,DECUB SEPSIS, UREMIA Physical Exam Vital Signs: Temp Pulse Resp BP Pulse Ox 98.4 F 76 17 175/72 H 98 07/10/18 08:00 07/10/18 08:00 07/10/18 08:00 07/10/18 08:00 07/10/18 08:00 Intake & Output 07/09/18 07/10/18 07/11/18 06:59 06:59 06:59 Intake Total 320 1570 Output Total 1300 650 200 Balance -980 920 -200 Weight 58.9 kg 61.7 kg General appearance: PRESENT: no acute distress, obese Head exam: PRESENT: atraumatic Eye exam: PRESENT: PERRLA Mouth exam: PRESENT: moist, tongue midline Teeth exam: PRESENT: poor dentation Neck exam: PRESENT: carotid bruit Respiratory exam: PRESENT: decreased breath sounds Cardiovascular exam: PRESENT: systolic murmur, tachycardia GI/Abdominal exam: PRESENT: other - Feeding tube in place. Tube feedings are running at 15 cc/h. Rectal exam: PRESENT: deferred Extremities exam: PRESENT: full ROM. ABSENT: calf tenderness, clubbing, pedal edema Musculoskeletal exam: PRESENT: other - Patient is bedbound Neurological exam: PRESENT: alert, awake, other - Patient has a previous history of stroke involving the right side of the body. Psychiatric exam: PRESENT: appropriate affect, normal mood. ABSENT: homicidal ideation, suicidal ideation Results Laboratory Results: 07/09/18 04:15 07/10/18 03:25 07/10/18 03:25 Sodium 143.0 Potassium 3.5 L Chloride 110 H Carbon Dioxide 23 Anion Gap 10 BUN 80 H Creatinine 1.97 H Est GFR ( Amer) 30 L Est GFR (Non-Af Amer) 25 L Glucose 119 H Calcium 8.9 Magnesium 3.3 H 06/28/18 06/28/18 07/03/18 15:30 15:30 20:05 Creatine Kinase < 20 L 76 CK-MB (CK-2) Troponin I < 0.012 07/03/18 07/04/18 07/04/18 20:05 02:38 02:38 Creatine Kinase 83 CK-MB (CK-2) 4.98 H 6.58 H Troponin I 0.078 0.158 07/04/18 07/04/18 09:44 09:44 Creatine Kinase 43 CK-MB (CK-2) 5.94 H Troponin I 0.273 Impressions: Abdomen/Pelvis CT 07/01/18 00:00 IMPRESSION: 1. Moderate constipation. 2. Left exophytic solid renal lesion has increased in size and now measures 2.1 cm. This could represent complex cyst although a solid mass cannot be excluded. 3. Decubitus ulcer just right of midline overlying the sacrum. Inflammation extends to the level of the lower sacrum and coccyx. Bone involvement cannot be excluded. 4. Subcutaneous edema. Lung Scan-VQ NM 07/02/18 13:06 IMPRESSION: Very limited anterior and anterior oblique planar perfusion images on bed bound patient unable to tolerate flat positioning and unable to perform ventilation imaging. Generally nondiagnostic examination without obvious perfusion defect. Recommend CT pulmonary angiogram to further evaluate if there is persistent suspicion for pulmonary embolism. Head CT 07/07/18 00:00 IMPRESSION: No CT evidence of acute large territory ischemic change. Sphenoid sinusitis. Right mastoid air cell fluid. EVIDENCE OF ACUTE STROKE: NO. Chest X-Ray 07/08/18 00:00 IMPRESSION: Increasing right-sided pleural effusion underlying airspace disease cannot be excluded. KUB X-Ray 07/08/18 00:00 IMPRESSION: NO RADIOGRAPHIC EVIDENCE FOR ACUTE ABDOMINAL DISEASE. Assessment and Plan - Diagnosis (1) Acute and chronic respiratory failure with hypoxia Is this a current diagnosis for this admission?: Yes Plan: Improving. Multifcatorial, likely due to underlying pneumonia and aspiration. Not a candidate for CTA due to worsening renal function, VQ scan sub-optimal due to patient being bedbound. Continue supplemental oxygen. If PO2 drops patient will need to be intubated as she is to altered for BiPAP. Continue empiric antibiotics. 07/03/2018: ABG pH 7.34, PCO2 39.9, PO2 73.3. 07/02/2018: ABG pH 7.34, PCO2 39.1, PO2 48.2. 07/04/2018-patient was transferred to ICU last night because of pulseless electrical activity status post resuscitation for less than a minute she was intubated during the process ABG had 30% oxygen he is pH 7.42 PCO2 35 PO2 52 o xygen saturation is 88.5. Plan is to continue to keep her intubated underscore keep it under sedation/ consultation with Dr. Escobar is going to be requested. plan to repeat the ABG in the morning. 07/05/2018-patient is still intubated propofol is turned off pulse ox 100% on 25% oxygen. ABG this morning is pending. No acute events in the last 24 hours. Patient is afebrile. presently on ceftazadime and vancomycin. ABG today pending. Today's chest x-ray is pending. 07/06/2018-patient is still on mechanical ventilation off the sedatives. Alert awake responding to the verbal commands. ABG on room air shows pH of 7.43 PCO2 36 PO2 110 bicarb is 23. Plan is to wean her off from the vent today. presently on ceftazadime and vancomycin. Sputum cultures are showing MRSA urine culture showing MRSA. Chest x-ray done yesterday shows no acute pulmonary pathology noticed. 07/07/2018-patient is off of mechanical ventilation. Breathing around on. Pulse ox is 100% on 2 L. Plan is to continue scheduled and as needed nebulizations. Presently on ceftazadime/vancomycin. on exam chest bilateral air entry is decreased but no wheezing no crepitations present. 07/08/2018-patient admitted to the ICU from the floor for acute on chronic respiratory failure hypoxia. Status post intubation and extubation. She was extubated yesterday. ABG done this morning shows pH of 7.44/PCO2 34.8/PO2 72.6 with pulse ox of 95%. Patient is presently on 2 L oxygen via nasal cannula. 07/09/2018-patient was admitted with acute respiratory failure with hypoxia. Sputum culture are positive for MRSA. Presently on IV vancomycin. Extubated successfully present on BiPAP. On examination chest bilateral entry was decreased no wheezing no crepitations. pulse ox is a 96% on 35% oxygen. 07/10/2018-patient is admitted with acute respiratory failure with hypoxia. Sputum cultures are positive for MRSA. Recently on IV vancomycin. Patient was successfully extubated. On examination chest bilateral entry was decreased no wheezing no crepitations. Pulse oxes are 93 to 94% on 3 L. Patient can go up to IMCU and continue the nebulizer treatments. (2) CKD (chronic kidney disease) stage 4, GFR 15-29 ml/min Is this a current diagnosis for this admission?: Yes Plan: Worsening stable. Electrolytes within normal limits except for magnesium. Will DC Lasix. 07/03/2018: FiO2 91-97 4 L nasal cannula. I/O 360/900 -540. ABG pH 7.34, PCO2 39.9, PO2 73.3. Sodium 141.7, potassium 4.3, chloride 106, creatinine 2.47, magnesium 3.6, 07/02/2018: Sodium 137.5, potassium 4.3, bicarb 19, creatinine 2.24 up from 1.94, baseline 2.41, Mg 3.4 down from 3.5. Fluid balance -1640. 07/01/2018. sodium 135.4, potassium 4.8, bicarbonate 17, creatinine 1.94 down from 2.54 from admission. Baseline 2.4. Urine culture from 06/30/2018 growing MRSA. BMP tomorrow. Replace electrolytes as needed. 07/04/2018-patient has a stage IV kidney disease creatinine 2 days at 2.28 baseline creatinine is around 2.4. Urine cultures are showing MRSA. Presently on ceftazadime and vancomycin. Potassium is 3.6 stable bicarb is 19. Serum sodium is 141.9. Plan is to repeat the labs tomorrow. Patient has a negative fluid balance of 1100 mL. 07/05/2018-patient serum creatinine today is 2.34. sLightly improved from 2.44 yesterday. Patient is presently on D5 half-normal saline at 75 cc/h. Serum potassium is 3.6 bicarb is 21. Sodium is 148. Plan is to continue the present management. 07/06/2018-patient has today's creatinine is 2.34 today's creatinine is pending. Presently on a D5 half-normal saline at 75 cc/h. Patient has baseline creatinine of around 2.4. Urine culture showing MRSA. Plan is to continue the present management. 07/07/2018-patient serum creatinine today is 2.15. Plan is to start tube feedings yesterday and IV fluids are discontinued because of the severe constipation feedings tube was not started plan to start on a feeding tube as per the protocol today. Hopefully it will improve her creatinine. Her baseline creatinine is around 2.4. 07/08/2018-serum creatinine today is 2.08 improving. Her baseline creatinine is around 2.4 NG tube feedings are running at 5 cc/h. Plan to do the KUB if there is no obstruction plan is to increase the rate of tube feedings. Patient has also has a rectal tube. Acute kidney injury secondary to poor oral intake is resolving. 07/09/2018-serum creatinine today is 2.33 and urinary output is decreased. Patient is only on minimal amount of PEG feeding. With concerns about the large amount of aspiration. KUB was negative yesterday. Plan is to increase the tube feedings to 30 cc/h and start on D5 normal saline at 50 cc/h. Plan to recheck the labs tomorrow. 07/10/2018-today's creatinine is 1.97. Improved from yesterday's creatinine of 2.23. Her baseline creatinine is around 2.4. Patient is receiving tube feedings at 15 cc/h. Acute kidney injury most likely secondary to poor oral intake resolved. (3) Leukocytosis Qualifiers: Leukocytosis type: unspecified Qualified Code(s): D72.829 - Elevated white blood cell count, unspecified Is this a current diagnosis for this admission?: Yes Plan: Improving. Urine culture positive for MRSA. No blood culture available from admission. Continue Fortaz and Vanco Started vancomycin 06/30/2018. Total 4 days of IV antibiotics. 07/03/2018: WBC 17.8, hemoglobin 8.7, platelet 312. ABG pH 7.34, PCO2 39.9, PO2 73.3. Sodium 141.7, potassium 4.3, chloride 106, creatinine 2.47, magnesium 3.6, 07/01/2018. WBC 18.2 down from 30.6 on admission, sodium 135.4, potassium 4.8, bicarbonate 17, creatinine 1.94 down from 2.54 from admission Urine culture from 06/30/2018 growing MRSA. Patient febrile was, altered, leukocytosis on admission urine culture positive for MRSA raises a question of seeding possibly endocarditis or decubitus ulcer. 07/01/2018. 2D echo no vegetations. Ejection fraction 60%. CT pelvis constipation and decubitus ulcer inflammation extending to the sacrum. No sign of osteomyelitis. 07/04/2018-WBC count is 21,900 today. Presently on Fortaz and vancomycin. Urine culture shows MRSA. Blood cultures are negative. T-max is 99.1 today. She has a sacral decubiti and also decubitus ulcer on the right thigh. Echocardiogram was done EF is 60% no evidence of any vegetation no suspicion for vegetation. CT pelvis shows constipation under decubitus ulcer inflammation extending to the sacrum but no signs of osteomyelitis. Plan is to continue the present management. 07/05/2018-patient's WBC count is 16,200 today. Improved from 21,900 yesterday. Presently on Fortaz and IV vancomycin. Urine culture shows MRSA. Blood cultures are negative. Afebrile. Temperature is 98.1 today. Pulse rate is 80. Plan is to continue the present management. 07/06/2018-WBC count came down to 14,300. WBC count is improving. Plan is to continue Ceftazadime and IV vancomycin. Sputum culture on the urine culture showing MRSA. Patient has also has sacral wounds as per the surgery there is no evidence of infection . T-max is 98.8 today. 07/07/2018-patient WBC count is 14,600 today. Steadily improving. Presently on c ceftazadime and vancomycin. Patient is afebrile. T-max is 97.7. Sputum culture shows MRSA urine culture shows MRSA. 07/08/2018-patient's WBC count is 13,400. Leukocytosis is resolving. Patient is presently on vancomycin. sputum culture ,urine culture showing MRSA , patient is on contact isolation. 07/09/2018-WBC count is 14,200 today presently in IV vancomycin. Tracheal aspirate and urine culture showing MRSA. Febrile. Temperature 97.3. Respiratory to 15. 07/10/2018-WBC count is 14,100 yesterday. His hemoglobin is pending. Presently on IV vancomycin. Afebrile. Tracheal aspirate and urine culture showing MRSA. (4) Acute encephalopathy Is this a current diagnosis for this admission?: Yes Plan: Multifactorial, most likely due to underlying infectious, worsening azotemia, narcotics and hypoxia. 07/03/2018: SBP of 130-150, T-max 99.3, HR 95-157, RR 16-20, FiO2 91-97 4 L nasal cannula. I/O 360/900 -540. WBC 17.8, hemoglobin 8.7, platelet 312. ABG pH 7.34, PCO2 39.9, PO2 73.3. Sodium 141.7, potassium 4.3, chloride 106, creatinine 2.47, magnesium 3.6, 07/02/2018: SBP 136-170, T-max 98.4, pulse 70-94, SPO2 97 to 102 L NC, WBC 19.6, platelet 341, Hgb 9.4, 137.5, potassium 4.3, bicarb 19, creatinine 2.24 up from 1.94, baseline 2.41. 07/01/2018. SBP 139-170. T-max 98.2. Pulse 69-86. SPO2 100% on 2 L nasal cannula FiO2 28%. WBC 18.2 down from 30.6 on admission, sodium 135.4, potassium 4.8, bicarbonate 17, creatinine 1.94 down from 2.54 from admission Urine culture from 06/30/2018 growing MRSA. Continue treating the underlying infectious process. Blood cultures no growth x 72 hours. 07/04/2018-patient admitted with altered mental status and sepsis. Presently intubated on sedation. Unable to assisted neuro evaluation. Acute encephalopathy/altered mental status most likely multifactorial including sepsis and electrolyte abnormalities. 07/05/2018-patient was admitted for acute encephalopathy/altered mental status. Patient is on mechanical ventilation and propofol was turned off this morning. Pulse ox is 100% on 25% oxygen. Altered mental status most likely secondary to electrolyte abnormalities and underlying sepsis. She also has history of strokes and dementia. 07/06/2018-patient is alert and awake and responding to verbal commands very well. Still intubated but off the sedation. Acute encephalopathy/altered mental status is resolving. 07/07/2018-patient looks lethargic this morning. Responding slowly to verbal commands. Patient has history of stroke involving the right side. Able to give her name able to tell where she is but unable to get the date of . Plan to do the ABG this morning and repeat the CT head without contrast. 07/08/2018-patient is alert awake still lethargic. Able to give her name and saying she is fine. Occasional twitching involving the left shoulder. CT head done yesterday negative for acute pathology. 07/09/2018-patient is more alert more awake today. Acute encephalopathy/altered mental status is resolving. Latest CT head was negative for acute changes. 07/10/2018-altered mental status/acute and coagulopathy resolved. Latest CT head is negative for acute changes. 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 Plan to start her on insulin sliding scale. Patient is not on diabetic medications at home. diatery consult is going to be requested and to check for hemoglobin A1c tomorrow. 07/04/2018-patient has a history of type 2 diabetes nurses also insulin sliding scale is n.p.o. we will under intubated. Plan to start her on D5 half-normal saline because blood sugars are dropping to 75 this morning. 07/05/2018-patient has history of type 2 diabetes mellitus blood sugar this morning is 94 , tube feedings are on hold. Presently on D5 half-normal saline at 50 cc/h to prevent hypoglycemic episodes. 07/06/2018-patient is presently on D5 half-normal saline to prevent hypoglycemia. Plan to do the KUB today if it is okay , going to start back on tube feeds with Glucerna. 07/07/2018-patient's latest blood sugar is 111. To start back on feeding tubes today Glucerna and to check the blood sugars every 6 hours the sliding scale coverage. 07/08/2018-patient latest blood sugar is 84. Presently on insulin sliding scale receiving Glucerna. Plan is to continue to check the blood sugars every 6 hours. 07/09/2018-patient's latest blood sugar is 108 on insulin sliding scale receiving Glucerna. checking the blood sugars every 6 hours with sliding scale coverage. 07/10/2018-patient's latest blood sugar is 123. Receiving Glucerna via PEG tube. Patient on insulin sliding scale every 6 hours. Plan is to continue the present management. (6) UTI (urinary tract infection) Qualifiers: Urinary tract infection type: acute cystitis Hematuria presence: with hematuria Qualified Code(s): N30.01 - Acute cystitis with hematuria Is this a current diagnosis for this admission?: Yes Plan: Urine culture positive for MRSA. History of recurrent E. coli sensitive UTIs. Continue Fortaz Stat blood cultures. Started vancomycin 06/30/2018. Total 4 days of IV antibiotics. Urine culture from 06/30/2018 growing MRSA. 07/04/2018-urine cultures positive for MRSA patient has history of recurrent E. coli's causing urinary tract infection. Present on Fortaz and vancomycin. Blood cultures are negative. Plan is to continue the present management. 07/05/2018-urine culture is positive for MRSA sensitivity to vancomycin. Present on Fortaz and vancomycin blood cultures are negative plan is to continue the present management. 07/06/2018-urine culture is positive for MRSA sensitive to the vancomycin. Presently on Ceftazadime and vancomycin. Plan is to continue present management. 07/07/2018-patient's urine culture is positive for MRSA. On vancomycin and ceftazadime 07/08/2018-patient's urine culture is positive for MRSA presently on IV vancomycin. 07/09/2018-urine culture is positive for MRSA presently on IV vancomycin. Plan is to complete the antibiotic therapy. 07/10/2018-urine culture is positive for MRSA and on IV vancomycin. (7) Sacral decubitus ulcer, stage III Is this a current diagnosis for this admission?: No Plan: Patient has sacral decubitus stage III. Active discharge or drainage will collection. Was evaluated by surgery and at this point no drainage she will collection was observed. 07/01/2018. CT abdomen and pelvis. Moderate constipation. Decubitus ulcer just right of midline overlying the sacrum. Inflammation extends to the level of the lower sacrum and coccyx. Bone involvement cannot be excluded. 07/04/2018-patient has a decubitus ulcer over the sacrum and she has also decubitus ulcer on the lateral aspect of the right upper thigh. Present on Fortaz and vancomycin .surgical team signed off on her yesterday. 07/05/2018-patient has a stage III sacral decubitus and also decubitus ulcer on the lateral aspect of the right upper thigh. Surgery signed off on her. Presently on Fortaz and vancomycin. 07/07/2018-patient has a sacral decubitus stage III and decubitus wound on the lateral aspect of the right upper thigh wounds looks clean no signs of infection. Surgeons signed off from the case. 07/08/2018-patient has a stage III sacral decubitus, decubitus wound on the lateral aspect of the right upper thigh. No signs of infection. Surgical team signed off. 07/10/2018-patient has stage III sacral decubitus and a decubitus wound on the lateral aspect of the right upper thigh. No signs of infection. Plan is to closely monitor the wounds and do the daily dressings. (8) PEA (Pulseless electrical activity) Is this a current diagnosis for this admission?: Yes (9) Hx of AKA (above knee amputation) Qualifiers: Laterality: right Qualified Code(s): Z89.611 - Acquired absence of right leg above knee Is this a current diagnosis for this admission?: No (10) Hx of BKA Qualifiers: Laterality: left Qualified Code(s): Z89.512 - Acquired absence of left leg below knee Is this a current diagnosis for this admission?: No - Time Time Spent with patient: 25-34 minutes Medications reviewed and adjusted accordingly: Yes Anticipated discharge: SNF
[2018-07-10 10:00] LABS: ABSOLUTE BASOPHILS # (AUTO) 0.1 10^3/uL (0.0-0.2); ABSOLUTE EOSINOPHILS # (AUTO) 0.9 10^3/uL (0.0-0.6); ABSOLUTE LYMPHOCYTES (AUTO) 1.7 10^3/uL (0.5-4.7); ABSOLUTE MONOCYTES (AUTO) 1.5 10^3/uL (0.1-1.4); ABSOLUTE NEUT (AUTO) 12.4 10^3/uL (1.7-8.2); BASOPHILS % (AUTO) 0.5 % (0-2); EOSINOPHILS % (AUTO) 5.3 % (0-6); HEMATOCRIT 30.3 % (36.0-47.0); HEMOGLOBIN 9.9 g/dL (12.0-15.5); LYMPHOCYTES % (AUTO) 10.1 % (13-45); MEAN CORPUSCULAR HEMOGLOBIN 28.2 pg (27.0-33.4); MEAN CORPUSCULAR HGB CONC 32.7 g/dL (32.0-36.0); MEAN CORPUSCULAR VOLUME 86 fl (80-97); MONOCYTES % (AUTO) 8.9 % (3-13); PLATELET COUNT 204 10^3/uL (150-450); RED BLOOD COUNT 3.51 10^6/uL (3.72-5.28); RED CELL DISTRIBUTION WIDTH 14.7 % (11.5-14.0); SEGMENTED NEUTROPHILS % (AUTO) 75.2 % (42-78); TOTAL CELLS COUNTED % (AUTO) 100 %; WHITE BLOOD COUNT 16.4 10^3/uL (4.0-10.5)
[2018-07-10 10:16] LABS: ALANINE AMINOTRANSFERASE 37 U/L (9-52); ALBUMIN 2.4 g/dL (3.5-5.0); ALKALINE PHOSPHATASE 89 U/L (38-126); ANION GAP 11 (5-19); ASPARTATE AMINO TRANSFERASE 12 U/L (14-36); BILIRUBIN,DIRECT 0.4 mg/dL (0.0-0.4); BILIRUBIN,TOTAL 0.4 mg/dL (0.2-1.3); BLOOD UREA NITROGEN 77 mg/dL (7-20); CALCIUM 8.6 mg/dL (8.4-10.2); CARBON DIOXIDE 23 mmol/L (22-30); CHLORIDE 108 mmol/L (98-107); GLUCOSE 122 mg/dL (75-110); POTASSIUM 3.6 mmol/L (3.6-5.0); SODIUM 141.6 mmol/L (137-145); TOTAL PROTEIN 5.2 g/dL (6.3-8.2)
[2018-07-10] MEDS: LUBIPROSTONE 24 MCG CAPSULE PO SCH (10:39)
[2018-07-10] MEDS: AMLODIPINE BESYLATE 5 MG TABLET PO SCH (11:41)
[2018-07-10] MEDS: CLOPIDOGREL BISULFATE 75 MG TABLET PO SCH (11:41)
[2018-07-10] MEDS: CHOLECALCIFEROL (D3) 1,000 UNIT TABLET PO SCH (11:41)
[2018-07-10] MEDS: CETIRIZINE 5 MG TABLET PO SCH (11:41)
[2018-07-10] MEDS: ASPIRIN 81 MG TABLET, ENT COATED PO SCH ×2 (11:41→22:41)
[2018-07-10] MEDS: ACETAMINOPHEN SOLN 325 MG/10.15 ML UDCUP PEG PRN (11:42)
[2018-07-10] MEDS: DOCUSATE SODIUM 100 MG/10 ML UDC NG SCH (11:42)
[2018-07-10] MEDS: LABETALOL HCL 200 MG TABLET PO SCH ×2 (11:46→22:41)
[2018-07-10] MEDS: FONDAPARINUX SODIUM INJ 2.5 MG/0.5 ML DISP.SYRIN SUBCUT SCH (11:47)
[2018-07-10] MEDS: ATORVASTATIN CALCIUM 40 MG TABLET PO SCH (22:41)
[2018-07-11] MEDS: IPRATROPIUM/ALBUTEROL 0.5-2.5 MG/3 ML AMPUL NEB SCH ×3 (00:10→15:50)
[2018-07-11] MEDS: INSULIN LISPRO 100 UNIT/ML 3 ML VIAL SUBCUT SCH ×4 (00:24→18:45)
[2018-07-11] MEDS: GABAPENTIN 100 MG CAPSULE PO SCH ×4 (06:44→21:18)
[2018-07-11] MEDS: DOCUSATE SODIUM 100 MG/10 ML UDC NG SCH (10:30)
[2018-07-11] MEDS: VANCOMYCIN HCL 500 MG in DEXTROSE 5%-WATER 100 ML IV SCH (10:31)
[2018-07-11] MEDS: FONDAPARINUX SODIUM INJ 2.5 MG/0.5 ML DISP.SYRIN SUBCUT SCH (10:32)
[2018-07-11] MEDS: LUBIPROSTONE 24 MCG CAPSULE PO SCH (10:32)
[2018-07-11] MEDS: ASPIRIN 81 MG TABLET, ENT COATED PO SCH ×2 (10:35→21:18)
[2018-07-11] MEDS: AMLODIPINE BESYLATE 5 MG TABLET PO SCH (10:35)
[2018-07-11] MEDS: CHOLECALCIFEROL (D3) 1,000 UNIT TABLET PO SCH (10:35)
[2018-07-11] MEDS: CLOPIDOGREL BISULFATE 75 MG TABLET PO SCH (10:37)
[2018-07-11] MEDS: LABETALOL HCL 200 MG TABLET PO SCH ×2 (10:37→21:18)
[2018-07-11] MEDS: CETIRIZINE 5 MG TABLET PO SCH (10:49)
--- NOTE | 2018-07-11 10:50 | PDOC PROGRESS REPORT ---
Subjective Progress Note for:: 07/11/18 Subjective:: 68 year old female with a past medical history of CVA with immobility, peripheral vascular disease status post bilateral lower extremity amputation, chronic kidney disease, diabetes, chronic UTI and stage III sacral decubiti. She is brought to the emergency room for altered mental status found to have leukocytosis, acute on chronic renal failure, pyuria, 4 x 4 centimeter stage IV sacral decubiti, 2 x 3 cm stage II decubiti at the gluteal fold bilaterally. Patient admits to pain but is unable to localize. She received empiric antibiotic and refer to the hospitalist for admission. 07/04/2018-patient was brought to the ICU last night she has PEA ,status post resuscitation lasted for less than a minute she was given EPI and intubated. EKG shows questionable new RBBB. Troponin went up to 0.158 may be because of the resuscitation effort. Patient is presently on 30% oxygen pH is 7.42/PO2 35 PCO2 52 oxygen saturation is 88%. Patient is presently on propofol. Sedated. Nurses noticing fecal-like matter coming through the NG tube. Patient is severely constipated she was started on soapsuds enemas yesterday. And has a PEG tube. She has also has a stage III sacral decubitus and also stage III wound on the lateral aspect of the right upper thigh. Presently WBC count is 21,900 on vancomycin and Fortaz. Blood sugars are dropping to 75 to start on a D5 today to prevent hypoglycemic episodes. CT head done last night shows mild microvascular changes. On examination right eye pupil is dilated mildly reactive. Left pupil is reacting well. Unable to do neuro examination because patient is sedated. 07/05/2018-patient is still on ventilator pulse ox is 100% on 25% oxygen. Patient ventilator settings are SIMV with tidal volume of 500 PEEP of 5 oxygen saturation of 25%. Decreasing requirements of oxygen. KUB done yesterday suggests significant amount of stool. To give Kayexalate, mag citrate and enemas today to resolve the constipation. No acute events in the last 24 hours. Propofol is turned off this morning. Patient is on a D5 half-normal saline because of hypoglycemia yesterday. Blood sugar is around 94 this morning. NG tube feedings are on hold. 07/06/2018-no acute events in the last 24 hours. Patient is afebrile. Patient's hemoglobin dropped to 7.3 today. Yesterday's hemoglobin is 8.2 plan is to transfuse at least 2 units today. ABG done this morning shows pH of 7.43 PCO2 36 PO2 110 bicarb is 23 this is on room air. Plan to wean her off from the vent today. Plan to do the KUB today before starting the tube feedings. Family members are at bedside they are happy with the care so far. 07/07/2018-patient is successfully extubated yesterday no acute events last night patient is afebrile. She received 2 units of PRBC yesterday. Hemoglobin is 10.4 this morning. Pulse ox is 100% on 2 L blood pressure is 176/66 heart rate in the 70s. Nurse is concerned about patient is more lethargic this morning plan to do the ABG. 07/08/2018-no acute events in the last 24 hours. Patient is afebrile. Patient still lethargic. She is able to give her name. She is saying she is okay. She has occasional twitches involving the left the arm. She had a residual of 200 yesterday NG tube feedings running at 5 cc/h. To do the KUB this morning. Afebrile. She has a PEG tube, she has a rectal tube , she has a indwelling Carrillo's catheter. 07/09/2018-no acute events in the last 24 hours. Patient is afebrile. On BiPAP with 35% oxygen pulse ox is around 98%. Comfortable in the bed responding to the verbal commands by nodding her head. Not in distress. Blood pressure still around 167/80. Plan to increase amlodipine to 10 mg daily. Urine output is decreased since yesterday plan is to give D5 normal saline at 50 cc/h. if The patient is stable enough today I may move her to [facility] tomorrow. 07/10/2018-no acute events in the last 24 hours. Patient is afebrile. Pulse ox is 93% on 3 L. Comfortably in the bed responded to the verbal commands. Patient is stable enough to go to the [facility]. 07/11/2018-no acute events in the last 24 hours. Patient is afebrile. Pulse ox is 84% on 35% BiPAP. pt is comfortable in the bed communicating okay. Reason For Visit: UTI ,DECUB SEPSIS, UREMIA Physical Exam Vital Signs: Temp Pulse Resp BP Pulse Ox 100.6 F H 83 19 146/67 H 94 07/11/18 07:11 07/11/18 08:59 07/11/18 08:59 07/11/18 07:11 07/11/18 08:59 Intake & Output 07/10/18 07/11/18 07/12/18 06:59 06:59 06:59 Intake Total 1570 930 Output Total 650 985 Balance 920 -55 Weight 61.7 kg 61.2 kg General appearance: PRESENT: no acute distress Head exam: PRESENT: atraumatic Eye exam: PRESENT: PERRLA Mouth exam: PRESENT: moist, tongue midline Neck exam: ABSENT: carotid bruit, JVD, lymphadenopathy, thyromegaly Respiratory exam: PRESENT: decreased breath sounds Cardiovascular exam: PRESENT: systolic murmur, tachycardia GI/Abdominal exam: PRESENT: normal bowel sounds, soft. ABSENT: distended, guarding, mass, organolmegaly, rebound, tenderness Rectal exam: PRESENT: deferred Gentrourinary exam: PRESENT: indwelling catheter Extremities exam: PRESENT: other - And has a right AKA and left BKA. Neurological exam: PRESENT: alert Psychiatric exam: PRESENT: appropriate affect, normal mood. ABSENT: homicidal ideation, suicidal ideation Skin exam: PRESENT: other - And has a stage III sacral decubitus and decubitus ulcer on the lateral aspect of the right upper thigh. Results Laboratory Results: 07/10/18 09:37 07/10/18 09:37 07/11/18 03:46 Magnesium 3.3 H 06/28/18 06/28/18 07/03/18 15:30 15:30 20:05 Creatine Kinase < 20 L 76 CK-MB (CK-2) Troponin I < 0.012 07/03/18 07/04/18 07/04/18 20:05 02:38 02:38 Creatine Kinase 83 CK-MB (CK-2) 4.98 H 6.58 H Troponin I 0.078 0.158 07/04/18 07/04/18 09:44 09:44 Creatine Kinase 43 CK-MB (CK-2) 5.94 H Troponin I 0.273 Impressions: Abdomen/Pelvis CT 07/01/18 00:00 IMPRESSION: 1. Moderate constipation. 2. Left exophytic solid renal lesion has increased in size and now measures 2.1 cm. This could represent complex cyst although a solid mass cannot be excluded. 3. Decubitus ulcer just right of midline overlying the sacrum. Inflammation extends to the level of the lower sacrum and coccyx. Bone involvement cannot be excluded. 4. Subcutaneous edema. Lung Scan-VQ NM 07/02/18 13:06 IMPRESSION: Very limited anterior and anterior oblique planar perfusion images on bed bound patient unable to tolerate flat positioning and unable to perform ventilation imaging. Generally nondiagnostic examination without obvious perfusion defect. Recommend CT pulmonary angiogram to further evaluate if there is persistent suspicion for pulmonary embolism. Head CT 07/07/18 00:00 IMPRESSION: No CT evidence of acute large territory ischemic change. Sphenoid sinusitis. Right mastoid air cell fluid. EVIDENCE OF ACUTE STROKE: NO. Chest X-Ray 07/08/18 00:00 IMPRESSION: Increasing right-sided pleural effusion underlying airspace disease cannot be excluded. KUB X-Ray 07/08/18 00:00 IMPRESSION: NO RADIOGRAPHIC EVIDENCE FOR ACUTE ABDOMINAL DISEASE. Assessment and Plan - Diagnosis (1) Acute and chronic respiratory failure with hypoxia Is this a current diagnosis for this admission?: Yes Plan: Improving. Multifcatorial, likely due to underlying pneumonia and aspiration. Not a candidate for CTA due to worsening renal function, VQ scan sub-optimal due to patient being bedbound. Continue supplemental oxygen. If PO2 drops patient will need to be intubated as she is to altered for BiPAP. Continue empiric antibiotics. 07/03/2018: ABG pH 7.34, PCO2 39.9, PO2 73.3. 07/02/2018: ABG pH 7.34, PCO2 39.1, PO2 48.2. 07/04/2018-patient was transferred to ICU last night because of pulseless electrical activity status post resuscitation for less than a minute she was intubated during the process ABG had 30% oxygen he is pH 7.42 PCO2 35 PO2 52 oxygen saturation is 88.5. Plan is to continue to keep her intubated underscore keep it under sedation/ consultation with Dr. Escobar is going to be requested. plan to repeat the ABG in the morning. 07/05/2018-patient is still intubated propofol is turned off pulse ox 100% on 25% oxygen. ABG this morning is pending. No acute events in the last 24 hours. Patient is afebrile. presently on ceftazadime and vancomycin. ABG today pending. Today's chest x-ray is pending. 07/06/2018-patient is still on mechanical ventilation off the sedatives. Alert awake responding to the verbal commands. ABG on room air shows pH of 7.43 PCO2 36 PO2 110 bicarb is 23. Plan is to wean her off from the vent today. presently on ceftazadime and vancomycin. Sputum cultures are showing MRSA urine culture showing MRSA. Chest x-ray done yesterday shows no acute pulmonary pathology noticed. 07/07/2018-patient is off of mechanical ventilation. Breathing around on. Pulse ox is 100% on 2 L. Plan is to continue scheduled and as needed nebulizations. Presently on ceftazadime/vancomycin. on exam chest bilateral air entry is decreased but no wheezing no crepitations present. 07/08/2018-patient admitted to the ICU from the floor for acute on chronic respiratory failure hypoxia. Status post intubation and extubation. She was extubated yesterday. ABG done this morning shows pH of 7.44/PCO2 34.8/PO2 72.6 with pulse ox of 95%. Patient is presently on 2 L oxygen via nasal cannula. 07/09/2018-patient was admitted with acute respiratory failure with hypoxia. Sputum culture are positive for MRSA. Presently on IV vancomycin. Extubated successfully present on BiPAP. On examination chest bilateral entry was decreased no wheezing no crepitations. pulse ox is a 96% on 35% oxygen. 07/10/2018-patient is admitted with acute respiratory failure with hypoxia. Sputum cultures are positive for MRSA. Recently on IV vancomycin. Patient was successfully extubated. On examination chest bilateral entry was decreased no wheezing no crepitations. Pulse oxes are 93 to 94% on 3 L. Patient can go up to IMCU and continue the nebulizer treatments. 07/11/2018-patient is admitted admitted to the ICU for acute respiratory failure with hypoxia status post intubation and extubation. Sputum cultures are positive for MRSA. Presently on IV vancomycin. Patient has a T-max of 99 WBC count is 16,400. (2) CKD (chronic kidney disease) stage 4, GFR 15-29 ml/min Is this a current diagnosis for this admission?: Yes Plan: Worsening stable. Electrolytes within normal limits except for magnesium. Will DC Lasix. 07/03/2018: FiO2 91-97 4 L nasal cannula. I/O 360/900 -540. ABG pH 7.34, PCO2 39.9, PO2 73.3. Sodium 141.7, potassium 4.3, chloride 106, creatinine 2.47, magnesium 3.6, 07/02/2018: Sodium 137.5, potassium 4.3, bicarb 19, creatinine 2.24 up from 1.94, baseline 2.41, Mg 3.4 down from 3.5. Fluid balance -1640. 07/01/2018. sodium 135.4, potassium 4.8, bicarbonate 17, creatinine 1.94 down from 2.54 from admission. Baseline 2.4. Urine culture from 06/30/2018 growing MRSA. BMP tomorrow. Replace electrolytes as needed. 07/04/2018-patient has a stage IV kidney disease creatinine 2 days at 2.28 baseline creatinine is around 2.4. Urine cultures are showing MRSA. Presently on ceftazadime and vancomycin. Potassium is 3.6 stable bicarb is 19. Serum sodium is 141.9. Plan is to repeat the labs tomorrow. Patient has a negative fluid balance of 1100 mL. 07/05/2018-patient serum creatinine today is 2.34. sLightly improved from 2.44 yesterday. Patient is presently on D5 half-normal saline at 75 cc/h. Serum potassium is 3.6 bicarb is 21. Sodium is 148. Plan is to continue the present management. 07/06/2018-patient has today's creatinine is 2.34 today's creatinine is pending. Presently on a D5 half-normal saline at 75 cc/h. Patient has baseline creatinine of around 2.4. Urine culture showing MRSA. Plan is to continue the present management. 07/07/2018-patient serum creatinine today is 2.15. Plan is to start tube feedings yesterday and IV fluids are discontinued because of the severe constipation feedings tube was not started plan to start on a feeding tube as per the protocol today. Hopefully it will improve her creatinine. Her baseline creatinine is around 2.4. 07/08/2018-serum creatinine today is 2.08 improving. Her baseline creatinine is a round 2.4 NG tube feedings are running at 5 cc/h. Plan to do the KUB if there is no obstruction plan is to increase the rate of tube feedings. Patient has also has a rectal tube. Acute kidney injury secondary to poor oral intake is resolving. 07/09/2018-serum creatinine today is 2.33 and urinary output is decreased. Patient is only on minimal amount of PEG feeding. With concerns about the large amount of aspiration. KUB was negative yesterday. Plan is to increase the tube feedings to 30 cc/h and start on D5 normal saline at 50 cc/h. Plan to recheck the labs tomorrow. 07/10/2018-today's creatinine is 1.97. Improved from yesterday's creatinine of 2.23. Her baseline creatinine is around 2.4. Patient is receiving tube feedings at 15 cc/h. Acute kidney injury most likely secondary to poor oral intake resolved. Urine output yesterday 650 mL. 07/11/2018-patient's serum creatinine is 1.96 stable. Yesterday it is 1.97. Patient receiving PEG feedings and also on IV fluids. Patient's baseline creatinine is around 2. (3) Leukocytosis Qualifiers: Leukocytosis type: unspecified Qualified Code(s): D72.829 - Elevated white blood cell count, unspecified Is this a current diagnosis for this admission?: Yes Plan: Improving. Urine culture positive for MRSA. No blood culture available from admission. Continue Fortaz and Vanco Started vancomycin 06/30/2018. Total 4 days of IV antibiotics. 07/03/2018: WBC 17.8, hemoglobin 8.7, platelet 312. ABG pH 7.34, PCO2 39.9, PO2 73.3. Sodium 141.7, potassium 4.3, chloride 106, creatinine 2.47, magnesium 3.6, 07/01/2018. WBC 18.2 down from 30.6 on admission, sodium 135.4, potassium 4.8, bicarbonate 17, creatinine 1.94 down from 2.54 from admission Urine culture from 06/30/2018 growing MRSA. Patient febrile was, altered, leukocytosis on admission urine culture positive for MRSA raises a question of seeding possibly endocarditis or decubitus ulcer. 07/01/2018. 2D echo no vegetations. Ejection fraction 60%. CT pelvis constipation and decubitus ulcer inflammation extending to the sacrum. No sign of osteomyelitis. 07/04/2018-WBC count is 21,900 today. Presently on Fortaz and vancomycin. Urine culture shows MRSA. Blood cultures are negative. T-max is 99.1 today. She has a sacral decubiti and also decubitus ulcer on the right thigh. Echocardiogram was done EF is 60% no evidence of any vegetation no suspicion for vegetation. CT pelvis shows constipation under decubitus ulcer inflammation extending to the sacrum but no signs of osteomyelitis. Plan is to continue the present management. 07/05/2018-patient's WBC count is 16,200 today. Improved from 21,900 yesterday. Presently on Fortaz and IV vancomycin. Urine culture shows MRSA. Blood cultures are negative. Afebrile. Temperature is 98.1 today. Pulse rate is 80. Plan is to continue the present management. 07/06/2018-WBC count came down to 14,300. WBC count is improving. Plan is to continue Ceftazadime and IV vancomycin. Sputum culture on the urine culture showing MRSA. Patient has also has sacral wounds as per the surgery there is no evidence of infection . T-max is 98.8 today. 07/07/2018-patient WBC count is 14,600 today. Steadily improving. Presently on c ceftazadime and vancomycin. Patient is afebrile. T-max is 97.7. Sputum culture shows MRSA urine culture shows MRSA. 07/08/2018-patient's WBC count is 13,400. Leukocytosis is resolving. Patient is presently on vancomycin. sputum culture ,urine culture showing MRSA , patient is on contact isolation. 07/09/2018-WBC count is 14,200 today presently in IV vancomycin. Tracheal aspirate and urine culture showing MRSA. Febrile. Temperature 97.3. Respirat ory to 15. 07/10/2018-WBC count is 14,100 yesterday. His hemoglobin is pending. Presently on IV vancomycin. Afebrile. Tracheal aspirate and urine culture showing MRSA. 07/11/2018-WBC count is going up to 16,400. Presently on IV vancomycin. I am going to start her on Zosyn also. (4) Acute encephalopathy Is this a current diagnosis for this admission?: Yes Plan: Multifactorial, most likely due to underlying infectious, worsening azotemia, narcotics and hypoxia. 07/03/2018: SBP of 130-150, T-max 99.3, HR 95-157, RR 16-20, FiO2 91-97 4 L nasal cannula. I/O 360/900 -540. WBC 17.8, hemoglobin 8.7, platelet 312. ABG pH 7.34 , PCO2 39.9, PO2 73.3. Sodium 141.7, potassium 4.3, chloride 106, creatinine 2.47, magnesium 3.6, 07/02/2018: SBP 136-170, T-max 98.4, pulse 70-94, SPO2 97 to 102 L NC, WBC 19.6, platelet 341, Hgb 9.4, 137.5, potassium 4.3, bicarb 19, creatinine 2.24 up from 1.94, baseline 2.41. 07/01/2018. SBP 139-170. T-max 98.2. Pulse 69-86. SPO2 100% on 2 L nasal cannula FiO2 28%. WBC 18.2 down from 30.6 on admission, sodium 135.4, potassium 4.8, bicarbonate 17, creatinine 1.94 down from 2.54 from admission Urine culture from 06/30/2018 growing MRSA. Continue treating the underlying infectious process. Blood cultures no growth x 72 hours. 07/04/2018-patient admitted with altered mental status and sepsis. Presently intubated on sedation. Unable to assisted neuro evaluation. Acute encephalopat hy/altered mental status most likely multifactorial including sepsis and electrolyte abnormalities. 07/05/2018-patient was admitted for acute encephalopathy/altered mental status. Patient is on mechanical ventilation and propofol was turned off this morning. Pulse ox is 100% on 25% oxygen. Altered mental status most likely secondary to electrolyte abnormalities and underlying sepsis. She also has history of strokes and dementia. 07/06/2018-patient is alert and awake and responding to verbal commands very well. Still intubated but off the sedation. Acute encephalopathy/altered mental status is resolving. 07/07/2018-patient looks lethargic this morning. Responding slowly to verbal commands. Patient has history of stroke involving the right side. Able to give her name able to tell where she is but unable to get the date of . Plan to do the ABG this morning and repeat the CT head without contrast. 07/08/2018-patient is alert awake still lethargic. Able to give her name and say ing she is fine. Occasional twitching involving the left shoulder. CT head done yesterday negative for acute pathology. 07/09/2018-patient is more alert more awake today. Acute encephalopathy/altered mental status is resolving. Latest CT head was negative for acute changes. 07/10/2018-altered mental status/acute encephalopathy resolved. Latest CT head is negative for acute changes. 07/11/2018-patient admitted with altered mental status/acute encephalopathy. Latest CT head was negative. Altered mental status resolving patient is at her baseline. (5) Diabetes Qualifiers: Diabetes mellitus manager intermediate insulin use: with manager intermediate use Diabetes mellitus complication status: with kidney complications Chronic kidney disease stage: stage 4 (severe) Is this a current diagnosis for this admission?: No Plan: 06/29/2018-patient has a history of type 2 diabetes mellitus. Plan to start her on insulin sliding scale. Patient is not on diabetic medications at home. diatery consult is going to be requested and to check for hemoglobin A1c tomorro w. 07/04/2018-patient has a history of type 2 diabetes nurses also insulin sliding scale is n.p.o. we will under intubated. Plan to start her on D5 half-normal saline because blood sugars are dropping to 75 this morning. 07/05/2018-patient has history of type 2 diabetes mellitus blood sugar this mo rning is 94 , tube feedings are on hold. Presently on D5 half-normal saline at 50 cc/h to prevent hypoglycemic episodes. 07/06/2018-patient is presently on D5 half-normal saline to prevent hypoglycemia. Plan to do the KUB today if it is okay , going to start back on tube feeds with Glucerna. 07/07/2018-patient's latest blood sugar is 111. To start back on feeding tubes today Glucerna and to check the blood sugars every 6 hours the sliding scale coverage. 07/08/2018-patient latest blood sugar is 84. Presently on insulin sliding scale receiving Glucerna. Plan is to continue to check the blood sugars every 6 hours. 07/09/2018-patient's latest blood sugar is 108 on insulin sliding scale receiving Glucerna. checking the blood sugars every 6 hours with sliding scale coverage. 07/10/2018-patient's latest blood sugar is 123. Receiving Glucerna via PEG tube. Patient on insulin sliding scale every 6 hours. Plan is to continue the present management. 07/11/2018-patient's latest blood sugar is 178. Patient is on insulin sliding scale. Receiving Glucerna via PEG tube. Plan is to continue the present management. (6) UTI (urinary tract infection) Qualifiers: Urinary tract infection type: acute cystitis Hematuria presence: with hematuria Qualified Code(s): N30.01 - Acute cystitis with hematuria Is this a current diagnosis for this admission?: Yes Plan: Urine culture positive for MRSA. History of recurrent E. coli sensitive UTIs. Continue Fortaz Stat blood cultures. Started vancomycin 06/30/2018. Total 4 days of IV antibiotics. Urine culture from 06/30/2018 growing MRSA. 07/04/2018-urine cultures positive for MRSA patient has history of recurrent E. coli's causing urinary tract infection. Present on Fortaz and vancomycin. Blood cultures are negative. Plan is to continue the present management. 07/05/2018-urine culture is positive for MRSA sensitivity to vancomycin. Present on Fortaz and vancomycin blood cultures are negative plan is to continue the present management. 07/06/2018-urine culture is positive for MRSA sensitive to the vancomycin. Presently on Ceftazadime and vancomycin. Plan is to continue present management. 07/07/2018-patient's urine culture is positive for MRSA. On vancomycin and ceftazadime 07/08/2018-patient's urine culture is positive for MRSA presently on IV vancomycin. 07/09/2018-urine culture is positive for MRSA presently on IV vancomycin. Plan is to complete the antibiotic therapy. 07/10/2018-urine culture is positive for MRSA and on IV vancomycin. 07/11/2018-urine culture is positive for MRSA and on IV vancomycin. (7) Sacral decubitus ulcer, stage III Is this a current diagnosis for this admission?: No (8) PEA (Pulseless electrical activity) Is this a current diagnosis for this admission?: Yes (9) Hx of AKA (above knee amputation) Qualifiers: Laterality: right Qualified Code(s): Z89.611 - Acquired absence of right l eg above knee Is this a current diagnosis for this admission?: No (10) Hx of BKA Qualifiers: Laterality: left Qualified Code(s): Z89.512 - Acquired absence of left leg below knee Is this a current diagnosis for this admission?: No - Time Time Spent with patient: 25-34 minutes Medications reviewed and adjusted accordingly: Yes Anticipated discharge: [facility]
[2018-07-11] MEDS ORDERED: LEVOFLOXACIN 500 MG/D5W RTU 500 MG/100 ML RTUPB IV SCH (11:00)
[2018-07-11] MEDS: LEVOFLOXACIN 250 MG/D5W RTU 250 MG/50 ML RTUPB IV SCH (15:33)
[2018-07-11] MEDS: ATORVASTATIN CALCIUM 40 MG TABLET PO SCH (21:18)
[2018-07-12] MEDS: IPRATROPIUM/ALBUTEROL 0.5-2.5 MG/3 ML AMPUL NEB SCH ×4 (00:35→20:50)
[2018-07-12] MEDS: INSULIN LISPRO 100 UNIT/ML 3 ML VIAL SUBCUT SCH ×4 (03:26→18:03)
[2018-07-12] MEDS: GABAPENTIN 100 MG CAPSULE PO SCH (05:33)
[2018-07-12] MEDS: LUBIPROSTONE 24 MCG CAPSULE PO SCH (10:31)
[2018-07-12] MEDS: FONDAPARINUX SODIUM INJ 2.5 MG/0.5 ML DISP.SYRIN SUBCUT SCH (10:38)
[2018-07-12] MEDS: LABETALOL HCL 200 MG TABLET PO SCH (10:39)
[2018-07-12] MEDS: CHOLECALCIFEROL (D3) 1,000 UNIT TABLET PO SCH (10:39)
[2018-07-12] MEDS: AMLODIPINE BESYLATE 5 MG TABLET PO SCH (10:41)
[2018-07-12] MEDS: CLOPIDOGREL BISULFATE 75 MG TABLET PO SCH (10:41)
[2018-07-12] MEDS: CETIRIZINE 5 MG TABLET PO SCH (10:41)
[2018-07-12] MEDS: ASPIRIN 81 MG TABLET, CHEWABLE PEG SCH ×2 (10:54→21:37)
[2018-07-12] MEDS: ACETAMINOPHEN SOLN 325 MG/10.15 ML UDCUP PEG PRN (10:57)
[2018-07-12 11:19] LABS: ABSOLUTE BASOPHILS # (AUTO) 0.1 10^3/uL (0.0-0.2); ABSOLUTE EOSINOPHILS # (AUTO) 0.6 10^3/uL (0.0-0.6); ABSOLUTE LYMPHOCYTES (AUTO) 1.4 10^3/uL (0.5-4.7); ABSOLUTE MONOCYTES (AUTO) 1.7 10^3/uL (0.1-1.4); ABSOLUTE NEUT (AUTO) 11.9 10^3/uL (1.7-8.2); BASOPHILS % (AUTO) 0.5 % (0-2); EOSINOPHILS % (AUTO) 3.6 % (0-6); HEMATOCRIT 31.3 % (36.0-47.0); HEMOGLOBIN 10.1 g/dL (12.0-15.5); LYMPHOCYTES % (AUTO) 8.7 % (13-45); MEAN CORPUSCULAR HEMOGLOBIN 28.2 pg (27.0-33.4); MEAN CORPUSCULAR HGB CONC 32.2 g/dL (32.0-36.0); MEAN CORPUSCULAR VOLUME 88 fl (80-97); MONOCYTES % (AUTO) 10.8 % (3-13); PLATELET COUNT 211 10^3/uL (150-450); RED BLOOD COUNT 3.56 10^6/uL (3.72-5.28); RED CELL DISTRIBUTION WIDTH 15.2 % (11.5-14.0); SEGMENTED NEUTROPHILS % (AUTO) 76.4 % (42-78); TOTAL CELLS COUNTED % (AUTO) 100 %; WHITE BLOOD COUNT 15.6 10^3/uL (4.0-10.5)
[2018-07-12] MEDS ORDERED: PROMETHAZINE HCL 6.25 MG/5 ML SYRUP 60 ML PEG PRN (11:30)
[2018-07-12] MEDS: LEVOFLOXACIN 250 MG/D5W RTU 250 MG/50 ML RTUPB IV SCH (12:08)
[2018-07-12] MEDS: IPRATROPIUM/ALBUTEROL 0.5-2.5 MG/3 ML AMPUL NEB PRN (12:24)
[2018-07-12] MEDS: GABAPENTIN 100 MG CAPSULE PEG SCH ×2 (13:16→21:38)
[2018-07-12] MEDS ORDERED: MIDAZOLAM 2 MG/2 ML INJ ONE (15:39)
[2018-07-12 15:54] LABS: ALANINE AMINOTRANSFERASE 33 U/L (9-52); ALBUMIN 2.4 g/dL (3.5-5.0); ALKALINE PHOSPHATASE 93 U/L (38-126); ANION GAP 12 (5-19); ASPARTATE AMINO TRANSFERASE 10 U/L (14-36); BILIRUBIN,DIRECT 0.4 mg/dL (0.0-0.4); BILIRUBIN,TOTAL 0.5 mg/dL (0.2-1.3); BLOOD UREA NITROGEN 75 mg/dL (7-20); CALCIUM 9.2 mg/dL (8.4-10.2); CARBON DIOXIDE 22 mmol/L (22-30); CHLORIDE 109 mmol/L (98-107); GLUCOSE 122 mg/dL (75-110); SODIUM 142.7 mmol/L (137-145); TOTAL PROTEIN 5.3 g/dL (6.3-8.2)
[2018-07-12] MEDS ORDERED: PROPOFOL 1,000 MG/100 ML INFUS..BTL IV PRN (15:54)
[2018-07-12] MEDS: MIDAZOLAM HCL 50 MG/100 ML RTUINJ IV PRN (16:00)
[2018-07-12] MEDS ORDERED: MIDAZOLAM HCL 50 MG/100 ML RTUINJ ONE (16:08)
[2018-07-12] MEDS ORDERED: NOREPINEPHRINE BITARTRATE INJ/PF 4 MG/4 ML SDV IV ONE (16:12)
[2018-07-12] MEDS ORDERED: ETOMIDATE INJ/PF 20 MG/10 ML SDV IV ONE (16:22)
[2018-07-12] MEDS ORDERED: PROPOFOL IV ONE (16:22)
[2018-07-12] MEDS ORDERED: DEXTROSE 5%-WATER 250 ML with NOREPINEPHRINE BITARTRATE 4 MG IV PRN ×2 (16:44)
--- NOTE | 2018-07-12 16:44 | RADIOLOGY REPORT (SQ) ---
EXAM DESCRIPTION: CHEST SINGLE VIEW COMPLETED DATE/TIME: 07/12/2018 4:30 pm REASON FOR STUDY: s/p intubation, ETT PLACEMENT COMPARISON: Chest films 07/05/2018, 07/08/2018 EXAM PARAMETERS: NUMBER OF VIEWS: One view. TECHNIQUE: Single frontal radiographic view of the chest acquired. RADIATION DOSE: NA LIMITATIONS: None. FINDINGS: LUNGS AND PLEURA: Complete collapse of the right lung, with opacification right hemithorax . This is represents a change from 07/08/2018. Findings discussed with Dr. Neil. Left lung well inflated and grossly clear. No left pneumothorax or pleural effusion. MEDIASTINUM AND HILAR STRUCTURES: No masses. Contour normal. HEART AND VASCULAR STRUCTURES: Heart normal in size. Normal vasculature. BONES: No acute findings. Multiple bilateral old rib fractures. New right anterior 7th rib fracture post code. HARDWARE: Endotracheal tube tip 2 cm above the perlita. OTHER: Gaseous distention of the stomach fundus. Defibrillator pads over the chest. IMPRESSION: Complete opacification right lung the to airspace disease and pleural effusion Endotracheal tube tip 2 cm above the perlita. Gaseous distention of the stomach. Acute right 7th rib fracture post code. TECHNICAL DOCUMENTATION: JOB ID: [id number] [employer]- All Rights Reserved Reading location - IP/workstation name: [email or web address]
[2018-07-12 16:47] LABS: ARTERIAL BLOOD BASE EXCESS -3.1 mmol/L; ARTERIAL BLOOD FIO2 100%; ARTERIAL BLOOD H2CO3 1.27 mmol/L (1.05-1.35); ARTERIAL BLOOD HCO3 22.4 mmol/L (20-24); ARTERIAL BLOOD O2 SATURATION 96.6 % (94-98); ARTERIAL BLOOD PCO2 42.2 mmHg (35-45); ARTERIAL BLOOD PH 7.34 (7.35-7.45); ARTERIAL BLOOD PO2 91.7 mmHg (80-100); ARTERIAL BLOOD TOTAL CO2 23.7 mmol/L (21-25)
[2018-07-12] MEDS: ASPIRIN 81 MG TABLET, ENT COATED PO SCH (18:42)
[2018-07-12] MEDS: DOCUSATE SODIUM 100 MG/10 ML UDC NG SCH (18:43)
--- NOTE | 2018-07-12 18:50 | PDOC PROGRESS REPORT ---
Subjective Progress Note for:: 07/12/18 Subjective:: This is a 68 year old female with a past medical history of CVA with immobility, peripheral vascular disease status post bilateral lower extremity amputation, chronic kidney disease, diabetes, chronic UTI and stage III sacral decubiti who was initially brought in to the emergency room for altered mental status found to have leukocytosis, acute on chronic renal failure, pyuria, 4 x 4 centimeter stage IV sacral decubiti, 2 x 3 cm stage II decubiti at the gluteal fold bilaterally. On 07/03, she went into PEA and had CPR for less than a minute and one dose of epi. Exact etiology appeared to have not been determined. There was question of PE but her renal function is not permissive for CTA and she is not able to participate with a VQ scan. She was downgraded from the ICU yesterday afternoon. This morning, she was saturating well on BIPAP. But later desaturated to the 80s and became increasingly SOB. She went into agonal breathing and was intubated and transferred back to ICU. Chest x-ray 4 days ago showed worsening right sided pleural effusion. Repeat CXR shows complete right lung whiteout and much worse effusion. Reason For Visit: UTI ,DECUB SEPSIS, UREMIA Physical Exam Vital Signs: Temp Pulse Resp BP Pulse Ox 97.6 F 77 19 148/59 H 94 07/12/18 11:04 07/12/18 12:27 07/12/18 12:27 07/12/18 11:04 07/12/18 12:27 Intake & Output 07/11/18 07/12/18 07/13/18 06:59 06:59 06:59 Intake Total 930 250 260 Output Total 985 675 150 Balance -55 -425 110 Weight 134 lb 14.766 oz 136 lb 10.986 oz General appearance: PRESENT: other - intubated, sedated Eye exam: PRESENT: conjunctiva pink, EOMI, PERRLA. ABSENT: scleral icterus Ear exam: PRESENT: normal external ear exam Mouth exam: PRESENT: moist, tongue midline Neck exam: ABSENT: carotid bruit, JVD, lymphadenopathy, thyromegaly Respiratory exam: PRESENT: decreased breath sounds - right. ABSENT: rales, rhonchi, wheezes Cardiovascular exam: PRESENT: RRR. ABSENT: diastolic murmur, rubs, systolic murmur Pulses: PRESENT: normal dorsalis pedis pul GI/Abdominal exam: PRESENT: normal bowel sounds, soft. ABSENT: distended, guarding, mass, organolmegaly, rebound, tenderness Rectal exam: PRESENT: deferred Neurological exam: PRESENT: other - intubated, sedated Results Laboratory Results: 07/12/18 06:30 07/12/18 07/12/18 06:30 06:30 WBC 15.6 H RBC 3.56 L Hgb 10.1 L Hct 31.3 L MCV 88 MCH 28.2 MCHC 32.2 RDW 15.2 H Plt Count 211 Seg Neutrophils % 76.4 Lymphocytes % 8.7 L Monocytes % 10.8 Eosinophils % 3.6 Basophils % 0.5 Absolute Neutrophils 11.9 H Absolute Lymphocytes 1.4 Absolute Monocytes 1.7 H Absolute Eosinophils 0.6 Absolute Basophils 0.1 Magnesium 3.3 H 06/28/18 06/28/18 07/03/18 15:30 15:30 20:05 Creatine Kinase < 20 L 76 CK-MB (CK-2) Troponin I < 0.012 07/03/18 07/04/18 07/04/18 20:05 02:38 02:38 Creatine Kinase 83 CK-MB (CK-2) 4.98 H 6.58 H Troponin I 0.078 0.158 07/04/18 07/04/18 09:44 09:44 Creatine Kinase 43 CK-MB (CK-2) 5.94 H Troponin I 0.273 Impressions: Abdomen/Pelvis CT 07/01/18 00:00 IMPRESSION: 1. Moderate constipation. 2. Left exophytic solid renal lesion has increased in size and now measures 2.1 cm. This could represent complex cyst although a solid mass cannot be excluded. 3. Decubitus ulcer just right of midline overlying the sacrum. Inflammation extends to the level of the lower sacrum and coccyx. Bone involvement cannot be excluded. 4. Subcutaneous edema. Lung Scan-VQ [place] 07/02/18 13:06 IMPRESSION: Very limited anterior and anterior oblique planar perfusion images on bed bound patient unable to tolerate flat positioning and unable to perform ventilation imaging. Generally nondiagnostic examination without obvious perfusion defect. Recommend CT pulmonary angiogram to further evaluate if there is persistent suspicion for pulmonary embolism. Head CT 07/07/18 00:00 IMPRESSION: No CT evidence of acute large territory ischemic change. Sphenoid sinusitis. Right mastoid air cell fluid. EVIDENCE OF ACUTE STROKE: NO. Chest X-Ray 07/08/18 00:00 IMPRESSION: Increasing right-sided pleural effusion underlying airspace disease cannot be excluded. KUB X-Ray 07/08/18 00:00 IMPRESSION: NO RADIOGRAPHIC EVIDENCE FOR ACUTE ABDOMINAL DISEASE. Assessment and Plan - Diagnosis (1) Acute hypoxemic respiratory failure Is this a current diagnosis for this admission?: Yes Plan: Chest x-ray 4 days ago showed worsening right sided pleural effusion. Repeat CXR shows complete right lung whiteout and much worse effusion. Concern for possible mucus plug with this much worse CXR finding. Will consult radiology for thoracentesis. Will reconsult pulmonology again and see if she will benefit from a bronch. Will add Levaquin for aspiration coverage as patient did have aspirate on first attempt to intubate. (2) Pleural effusion Is this a current diagnosis for this admission?: Yes Plan: Thoracentesis as mentioned. (3) CKD (chronic kidney disease) stage 4, GFR 15-29 ml/min Is this a current diagnosis for this admission?: Yes Plan: At baseline. (4) Sacral decubitus ulcer, stage III Is this a current diagnosis for this admission?: No Plan: Wound culture grew MRSA. On vancomycin. Re-examined ulcer today which showed a few necrotic areas. Will have surgicalist re-evaluate wound. - Time Time Spent with patient: 35 or more minutes
[2018-07-12 19:16] LABS: INTERNATIONAL RATION (INR) 1.07; PROTHROMBIN TIME 14.5 SEC (11.4-15.4)
[2018-07-12 19:17] LABS: PARTIAL THROMBOPLASTIN TIME 45.6 SEC (23.5-35.8)
[2018-07-12] MEDS: ACETYLCYSTEINE 10% NEB 400 MG/4 ML VIAL NEB SCH (20:50)
[2018-07-12] MEDS: ATORVASTATIN CALCIUM 40 MG TABLET PEG SCH (21:37)
[2018-07-12] MEDS: LABETALOL HCL 200 MG TABLET PEG SCH (21:37)
[2018-07-13] MEDS: INSULIN LISPRO 100 UNIT/ML 3 ML VIAL SUBCUT SCH ×4 (02:20→18:22)
[2018-07-13] MEDS: ACETYLCYSTEINE 10% NEB 400 MG/4 ML VIAL NEB SCH ×2 (02:24→08:34)
[2018-07-13] MEDS: IPRATROPIUM/ALBUTEROL 0.5-2.5 MG/3 ML AMPUL NEB SCH ×4 (02:28→19:41)
[2018-07-13] MEDS: MIDAZOLAM HCL 50 MG/100 ML RTUINJ IV PRN ×2 (05:21→17:33)
[2018-07-13] MEDS: GABAPENTIN 100 MG CAPSULE PEG SCH ×3 (05:22→22:00)
[2018-07-13 08:22] LABS: ABSOLUTE BASOPHILS # (AUTO) 0.1 10^3/uL (0.0-0.2); ABSOLUTE EOSINOPHILS # (AUTO) 0.2 10^3/uL (0.0-0.6); ABSOLUTE LYMPHOCYTES (AUTO) 1.1 10^3/uL (0.5-4.7); ABSOLUTE MONOCYTES (AUTO) 1.3 10^3/uL (0.1-1.4); ABSOLUTE NEUT (AUTO) 14.1 10^3/uL (1.7-8.2); BASOPHILS % (AUTO) 0.8 % (0-2); EOSINOPHILS % (AUTO) 1.1 % (0-6); HEMATOCRIT 29.9 % (36.0-47.0); HEMOGLOBIN 9.8 g/dL (12.0-15.5); LYMPHOCYTES % (AUTO) 6.8 % (13-45); MEAN CORPUSCULAR HEMOGLOBIN 28.4 pg (27.0-33.4); MEAN CORPUSCULAR HGB CONC 32.8 g/dL (32.0-36.0); MEAN CORPUSCULAR VOLUME 87 fl (80-97); MONOCYTES % (AUTO) 7.8 % (3-13); PLATELET COUNT 226 10^3/uL (150-450); RED BLOOD COUNT 3.45 10^6/uL (3.72-5.28); RED CELL DISTRIBUTION WIDTH 15.4 % (11.5-14.0); SEGMENTED NEUTROPHILS % (AUTO) 83.5 % (42-78); TOTAL CELLS COUNTED % (AUTO) 100 %; WHITE BLOOD COUNT 16.8 10^3/uL (4.0-10.5)
[2018-07-13 08:43] LABS: ANION GAP 14 (5-19); BLOOD UREA NITROGEN 80 mg/dL (7-20); CALCIUM 9.4 mg/dL (8.4-10.2); CARBON DIOXIDE 18 mmol/L (22-30); CHLORIDE 113 mmol/L (98-107); GLUCOSE 109 mg/dL (75-110); POTASSIUM 4.2 mmol/L (3.6-5.0); SODIUM 144.9 mmol/L (137-145)
[2018-07-13] MEDS ORDERED: DEXTROSE 5%-1/2 NORMAL SALINE 1,000 ML IV PRN (09:53)
[2018-07-13] MEDS ORDERED: AMLODIPINE BESYLATE 5 MG TABLET PEG SCH (10:00)
[2018-07-13] MEDS: DOCUSATE SODIUM 100 MG/10 ML UDC PEG SCH (10:02)
[2018-07-13] MEDS: CHOLECALCIFEROL (D3) 1,000 UNIT TABLET PO SCH (10:02)
[2018-07-13] MEDS: LABETALOL HCL 200 MG TABLET PEG SCH ×2 (10:02→22:01)
[2018-07-13] MEDS: CETIRIZINE 5 MG TABLET PEG SCH (10:02)
--- NOTE | 2018-07-13 10:02 | RADIOLOGY REPORT (SQ) ---
EXAM DESCRIPTION: CHEST SINGLE VIEW COMPLETED DATE/TIME: 07/13/2018 9:42 am REASON FOR STUDY: resp failure COMPARISON: 07/12/2018 EXAM PARAMETERS: NUMBER OF VIEWS: One view. TECHNIQUE: Single frontal radiographic view of the chest acquired. RADIATION DOSE: NA LIMITATIONS: None. FINDINGS: LUNGS AND PLEURA: Mildly improved right upper lobe aeration. Persistent dense consolidati on of the right mid and lower thorax. Unchanged left hemithorax. No pneumothorax. MEDIASTINUM AND HILAR STRUCTURES: Stable, partially obscured. HEART AND VASCULAR STRUCTURES: Stable, partially obscured. BONES: Osteopenia. Unchanged right-sided rib fractures. No new bony abnormality. HARDWARE: Endotracheal tube tip 1.3 cm above the perlita. Gastrostomy tube overlies left upper quadra nt. OTHER: No other significant finding. IMPRESSION: 1. Mildly improved right apical aeration. Persistent dense consolidation of the right mid and lower hemithorax, likely combination of airspace disease and effusion. 2. Low lying endotracheal tube with tip 1.3 cm above the perlita. TECHNICAL DOCUMENTATION: JOB ID: [id number] [employer]- All Rights Reserved Reading location - IP/workstation name: [email or web address]
[2018-07-13 10:16] LABS: ARTERIAL BLOOD BASE EXCESS -2.5 mmol/L; ARTERIAL BLOOD H2CO3 0.95 mmol/L (1.05-1.35); ARTERIAL BLOOD O2 SATURATION 87.2 % (94-98); ARTERIAL BLOOD PCO2 31.7 mmHg (35-45); ARTERIAL BLOOD PH 7.44 (7.35-7.45); ARTERIAL BLOOD PO2 49.9 mmHg (80-100)
[2018-07-13 10:18] LABS: ARTERIAL BLOOD FIO2 60%
[2018-07-13] MEDS: CLOPIDOGREL BISULFATE 75 MG TABLET PEG SCH (11:21)
[2018-07-13] MEDS: LUBIPROSTONE 24 MCG CAPSULE PO SCH (11:21)
[2018-07-13] MEDS: ASPIRIN 81 MG TABLET, CHEWABLE PEG SCH ×2 (11:38→22:01)
[2018-07-13] MEDS: LEVOFLOXACIN 500 MG/D5W RTU 500 MG/100 ML RTUPB IV SCH (11:52)
[2018-07-13] MEDS: VANCOMYCIN HCL 500 MG in DEXTROSE 5%-WATER 100 ML IV SCH (11:52)
--- NOTE | 2018-07-13 11:58 | RADIOLOGY REPORT (SQ) ---
EXAM DESCRIPTION: U/S CHEST COMPLETED DATE/TIME: 07/13/2018 10:58 am REASON FOR STUDY: R lung atelectasis COMPARISON: Same day radiograph TECHNIQUE: Dynamic and static grayscale images acquired of the localized site of clinical concern an d recorded on PACS. SITE OF CONCERN: Right chest LIMITATIONS: Limited sonographic evaluation of the right hemithorax. FINDINGS: Limited sonographic evaluation of the right hemithorax were obtained to evaluate for pleur al effusion. Partially evaluated pleural effusion, likely mild with associated consolidated lung. IMPRESSION: Limited sonographic evaluation demonstrates mild right pleural effusion with associated consolidated lung, likely atelectasis TECHNICAL DOCUMENTATION: JOB ID: [id number] [employer]- All Rights Reserved Reading location - IP/workstation name: [email or web address]
[2018-07-13 13:24] LABS: FLUID APPEARANCE CLOUDY; FLUID COLOR STRAW; FLUID SOURCE LUNG; FLUID TYPE BRONCHIAL WASH; FLUID VISCOSITY LIQUID
--- NOTE | 2018-07-13 13:34 | PDOC CONSULTATION ---
History of Present Illness Admission Date/PCP: 06/28/18 18:36 SHELBY RAYA MD History of Present Illness: GEORGE LAUGHLIN is a 68 year old female was admitted to [facility] with a UTI and progressively worsened, was transferred to the ICU and intubated. Patient was then downgraded back to the IMCU after adequate interventions, however today she presents back to ICU and is currently intubated and sedated. History obtained from chart history and family member at bedside. Patient has bilateral lower extremity amputations, peripheral vascular disease, chronic kidney disease, and diabetes. Consulted to see patient due to Acute Respiratory Failure. Past Medical History Cardiac Medical History: Reports: Hyperlipidema, Hypertension, Peripheral Vascular Disease Denies: Atrial Fibrillation, Congestive Heart Failure, Myocardial Infarction, Pulmonary Embolism Pulmonary Medical History: Reports: Chronic Obstructive Pulmonary Disease (COPD) Denies: Asthma Neurological Medical History: Denies: Seizures Endocrine Medical History: Reports: Diabetes Mellitus Type 2 GI Medical History: Denies: Hepatitis, Hiatal Hernia Psychiatric Medical History: Reports: Depression Hematology: Denies: Anemia, Sickle Cell Disease Past Surgical History Past Surgical History: Reports: Hysterectomy, Orthopedic Surgery - Left BKA, right AKA, Vascular Surgery - Failed angioplasty and stenting into the lower extremities. Denies: Amputation, Mastectomy, Pacemaker Social History Lives with: Family Smoking Status: Former Smoker Frequency of Alcohol Use: None Hx Recreational Drug Use: No Drugs: None Hx Prescription Drug Abuse: No - Advance Directive Resuscitation Status: Full Code Family History Family History: CAD, COPD Parental Family History Reviewed: No Children Family History Reviewed: No Sibling(s) Family History Reviewed.: No Medication/Allergy Home Medications: Amlodipine Besylate [Norvasc 5 mg Tablet] 10 mg PO DAILY 03/28/18 Buprenorphine [Butrans] 1 patch TD FR@1000 04/18/18 Metoprolol Tartrate [Lopressor 25 mg Tablet] 25 mg PO Q12 04/18/18 Naloxone HCl [Narcan] 1 spray NASL DAILY PRN 04/18/18 Atorvastatin Calcium [Lipitor 40 mg Tablet] 40 mg PO QHS 05/19/18 Clopidogrel Bisulfate [Plavix 75 mg Tablet] 75 mg PO DAILY 05/19/18 Dextrose [Glucose] 1 each PO PRN PRN 05/19/18 Gabapentin [Neurontin 100 mg Capsule] 100 mg PO QHS 05/19/18 Aspirin [Ecotrin 81 mg EC Tablet] 81 mg PO Q12 06/28/18 Cholecalciferol (Vitamin D3) [Vitamin D3 5000 unit Capsule] 5,000 unit PO DAILY 06/28/18 Clonidine [Catapres-Tts 3 (0.3 mg/24 Hr) Transderm Patch] 1 patch TD FR@1000 06/28/18 Oxycodone HCl [Oxy-Ir 5 mg Tablet] 7.5 mg PO Q5HP PRN MDD 37.5 MG 06/28/18 Polyethylene Glycol 3350 [Miralax Powder 17 gm/Packet] 1 packet PO Q2D 06/28/18 Allergies/Adverse Reactions: hydralazine Allergy (Severe, Verified 07/03/18 21:33) Tachycardia hypotension ams heparin Allergy (Intermediate, Verified 05/18/18 19:46) Hives latex [Latex] Allergy (Mild, Verified 05/18/18 19:46) RASH Penicillins Allergy (Mild, Verified 05/18/18 19:46) RASH, BREATHING DIFFICULTY shellfish derived Allergy (Unknown, Verified 06/30/18 07:57) coconut Allergy (Verified 05/18/18 19:46) codeine Allergy (Verified 05/18/18 19:46) Review of Systems ROS unobtainable: Due to endotracheal tube Physical Exam Vital Signs: Temp Pulse Resp BP Pulse Ox 97.3 F 70 14 145/63 H 94 07/13/18 08:00 07/13/18 09:24 07/13/18 08:35 07/13/18 08:00 07/13/18 08:35 Intake & Output 07/12/18 07/13/18 07/14/18 06:59 06:59 06:59 Intake Total 250 375 Output Total 675 465 10 Balance -425 -90 -10 Weight 62 kg 63.4 kg General appearance: PRESENT: no acute distress, disheveled, obese. ABSENT: cooperative Head exam: PRESENT: atraumatic, normocephalic Eye exam: ABSENT: EOMI, nystagmus Ear exam: PRESENT: normal external ear exam Mouth exam: PRESENT: dry mucosa, neck supple, tongue midline, other - ET TUBE IN PLACE Neck exam: ABSENT: carotid bruit, full ROM, JVD, lymphadenopathy, meningismus, tenderness, thyromegaly, tracheal deviation, tracheostomy, other Respiratory exam: PRESENT: crackles, decreased breath sounds, rales, rhonchi, wheezes. ABSENT: retraction, stridor, symmetrical, tachypnea, unlabored Cardiovascular exam: PRESENT: RRR, +S1, +S2 Pulses: PRESENT: normal radial pulses GI/Abdominal exam: PRESENT: soft Gentrourinary exam: PRESENT: indwelling catheter Extremities exam: PRESENT: other - BILATERAL AKA. ABSENT: clubbing, joint swelling Musculoskeletal exam: PRESENT: other - bilateral lower extremity amputation. A BSENT: ambulatory, dislocation, full ROM Neurological exam: PRESENT: other - patient sedated. ABSENT: awake Psychiatric exam: PRESENT: other - patient is currently sedated Skin exam: PRESENT: dry, intact, warm, other - stage III sacral decubiti. ABSENT: cyanosis, rash Results Laboratory Results: 07/13/18 03:57 07/13/18 03:57 07/12/18 07/12/18 07/12/18 06:30 06:30 16:34 WBC 15.6 H RBC 3.56 L Hgb 10.1 L Hct 31.3 L MCV 88 MCH 28.2 MCHC 32.2 RDW 15.2 H Plt Count 211 Seg Neutrophils % 76.4 Lymphocytes % 8.7 L Monocytes % 10.8 Eosinophils % 3.6 Basophils % 0.5 Absolute Neutrophils 11.9 H Absolute Lymphocytes 1.4 Absolute Monocytes 1.7 H Absolute Eosinophils 0.6 Absolute Basophils 0.1 Carbonic Acid 1.27 HCO3/H2CO3 Ratio 17:1 ABG pH 7.34 L ABG pCO2 42.2 ABG pO2 91.7 ABG HCO3 22.4 ABG O2 Saturation 96.6 ABG Base Excess -3.1 FiO2 100% Sodium 142.7 Potassium 4.0 Chloride 109 H Carbon Dioxide 22 Anion Gap 12 BUN 75 H Creatinine 2.14 H Est GFR ( Amer) 28 L Est GFR (Non-Af Amer) 23 L Glucose 122 H Calcium 9.2 Magnesium Total Bilirubin 0.5 AST 10 L ALT 33 Alkaline Phosphatase 93 Total Protein 5.3 L Albumin 2.4 L 07/13/18 07/13/18 07/13/18 03:57 03:57 03:57 WBC 16.8 H RBC 3.45 L Hgb 9.8 L Hct 29.9 L MCV 87 MCH 28.4 MCHC 32.8 RDW 15.4 H Plt Count 226 Seg Neutrophils % 83.5 H Lymphocytes % 6.8 L Monocytes % 7.8 Eosinophils % 1.1 Basophils % 0.8 Absolute Neutrophils 14.1 H Absolute Lymphocytes 1.1 Absolute Monocytes 1.3 Absolute Eosinophils 0.2 Absolute Basophils 0.1 Carbonic Acid HCO3/H2CO3 Ratio ABG pH ABG pCO2 ABG pO2 ABG HCO3 ABG O2 Saturation ABG Base Excess FiO2 Sodium 144.9 Potassium 4.2 Chloride 113 H Carbon Dioxide 18 L Anion Gap 14 BUN 80 H Creatinine 2.04 H Est GFR ( Amer) 29 L Est GFR (Non-Af Amer) 24 L Glucose 109 Calcium 9.4 Magnesium 3.3 H Total Bilirubin AST ALT Alkaline Phosphatase Total Protein Albumin 06/28/18 06/28/18 07/03/18 15:30 15:30 20:05 Creatine Kinase < 20 L 76 CK-MB (CK-2) Troponin I < 0.012 07/03/18 07/04/18 07/04/18 20:05 02:38 02:38 Creatine Kinase 83 CK-MB (CK-2) 4.98 H 6.58 H Troponin I 0.078 0.158 07/04/18 07/04/18 09:44 09:44 Creatine Kinase 43 CK-MB (CK-2) 5.94 H Troponin I 0.273 Impressions: Abdomen/Pelvis CT 07/01/18 00:00 IMPRESSION: 1. Moderate constipation. 2. Left exophytic solid renal lesion has increased in size and now measures 2.1 cm. This could represent complex cyst although a solid mass cannot be excluded. 3. Decubitus ulcer just right of midline overlying the sacrum. Inflammation extends to the level of the lower sacrum and coccyx. Bone involvement cannot be excluded. 4. Subcutaneous edema. Lung Scan-VQ [place] 07/02/18 13:06 IMPRESSION: Very limited anterior and anterior oblique planar perfusion images on bed bound patient unable to tolerate flat positioning and unable to perform ventilation imaging. Generally nondiagnostic examination without obvious perfusion defect. Recommend CT pulmonary angiogram to further evaluate if there is persistent suspicion for pulmonary embolism. Head CT 07/07/18 00:00 IMPRESSION: No CT evidence of acute large territory ischemic change. Sphenoid sinusitis. Right mastoid air cell fluid. EVIDENCE OF ACUTE STROKE: NO. KUB X-Ray 07/08/18 00:00 IMPRESSION: NO RADIOGRAPHIC EVIDENCE FOR ACUTE ABDOMINAL DISEASE. Chest X-Ray 07/12/18 00:00 IMPRESSION: Complete opacification right lung the to airspace disease and pleural effusion Endotracheal tube tip 2 cm above the perlita. Gaseous distention of the stomach. Acute right 7th rib fracture post code. Assessment & Plan - Diagnosis (1) Atelectasis Is this a current diagnosis for this admission?: Yes Plan: Today's x-ray shows right lung atelectasis, will plan for bronchoscopy (2) Acute and chronic respiratory failure with hypoxia Is this a current diagnosis for this admission?: Yes Plan: Patient on ventilator (3) CKD (chronic kidney disease) stage 4, GFR 15-29 ml/min Is this a current diagnosis for this admission?: Yes Plan: per nephrology (4) Pleural effusion Is this a current diagnosis for this admission?: Yes Plan: Spoke with radiology, ordered U/S Guided Thoracentesis to be done by radiology. U/S shows 2-3 small locculated pleural effusions. (5) Peripheral vascular disease Is this a current diagnosis for this admission?: Yes Plan: Control hypertension, blood glucose, and cholesterol - Time Total Critical Time (Minutes): 55 Inpatient Scribe Statement - . Entered by Bonnie Ruelas, acting as scribe for Dr. Escobar.
--- NOTE | 2018-07-13 14:03 | RADIOLOGY REPORT (SQ) ---
EXAM DESCRIPTION: CHEST SINGLE VIEW COMPLETED DATE/TIME: 07/13/2018 1:38 pm REASON FOR STUDY: POST BRONCHOSCOPY COMPARISON: 07/13/2018 EXAM PARAMETERS: NUMBER OF VIEWS: One view. TECHNIQUE: Single frontal radiographic view of the chest acquired. RADIATION DOSE: NA LIMITATIONS: None. FINDINGS: LUNGS AND PLEURA: Markedly improved aeration of the right hemithorax. Mild patchy opaciti es with small right pleural effusion. No pneumothorax post bronchoscopy. MEDIASTINUM AND HILAR STRUCTURES: Stable calcifications at the left thyroid. No other discrete mass. HEART AND VASCULAR STRUCTURES: Normal heart size. Aortic atherosclerosis. BONES: Decreased mineralization. No acute findings. HARDWARE: Endotracheal tube has been retracted with tip overlying midthoracic trachea. OTHER: No other significant finding. IMPRESSION: Markedly improved right sided aeration with mild persistent basilar opacities and small right effusion. No pneumothorax post bronchoscopy. TECHNICAL DOCUMENTATION: JOB ID: [id number] [employer]- All Rights Reserved Reading location - IP/workstation name: [email or web address]
--- NOTE | 2018-07-13 16:55 | Operative Report ---
Operative Report DATE OF SURGERY: 07/13/18 Operative Report: 68-year-old female status post FIRER BISQUE KILN has complete opacification of right lung. Patient status post ultrasound showed some very small loculated pleural effusions for we will proceed with fiberoptic bronchoscopy PREOPERATIVE DIAGNOSIS: Right lung atelectasis POSTOPERATIVE DIAGNOSIS: Same OPERATION: Fiberoptic bronchoscopy with bronchoalveolar lavage SURGEON: SWETA ETIENNE ANESTHESIA: GA TISSUE REMOVED OR ALTERED: Copious amounts of purulent thick sputum COMPLICATIONS: None ESTIMATED BLOOD LOSS: 0cc
--- NOTE | 2018-07-13 18:49 | PDOC PROGRESS REPORT ---
Subjective Progress Note for:: 07/13/18 Subjective:: This is a 68 year old female with a past medical history of CVA with immobility, peripheral vascular disease status post bilateral lower extremity amputation, chronic kidney disease, diabetes, chronic UTI and stage III sacral decubiti who was initially brought in to the emergency room for altered mental status found to have leukocytosis, acute on chronic renal failure, pyuria, 4 x 4 centimeter stage IV sacral decubiti, 2 x 3 cm stage II decubiti at the gluteal fold bilaterally. On 07/03, she went into PEA and had CPR for less than a minute and one dose of epi. Exact etiology appeared to have not been determined. There was question of PE but her renal function is not permissive for CTA and she is not able to participate with a VQ scan. She was downgraded from the ICU yesterday afternoon. 07/13/2018. No acute events overnight. Still ventilator dependent. Patient had a bronchoscopy with moderate resolution of right lung opacification. Reason For Visit: UTI ,DECUB SEPSIS, UREMIA Physical Exam Vital Signs: Temp Pulse Resp BP Pulse Ox 99.0 F 80 14 153/66 H 97 07/13/18 16:00 07/13/18 18:00 07/13/18 18:09 07/13/18 18:09 07/13/18 18:09 Intake & Output 07/12/18 07/13/18 07/14/18 06:59 06:59 06:59 Intake Total 250 375 98 Output Total 675 465 70 Balance -425 -90 28 Weight 62 kg 63.4 kg General appearance: PRESENT: no acute distress, well-developed, well-nourished Head exam: PRESENT: atraumatic, normocephalic Respiratory exam: PRESENT: clear to auscultation nicole, decreased breath sounds - Right lung.. ABSENT: rales, rhonchi, wheezes Cardiovascular exam: PRESENT: RRR. ABSENT: diastolic murmur, rubs, systolic [place] Neurological exam: PRESENT: other - Intubated and sedated. Results Laboratory Results: 07/13/18 03:57 07/13/18 03:57 07/13/18 07/13/18 07/13/18 03:57 03:57 03:57 WBC 16.8 H RBC 3.45 L Hgb 9.8 L Hct 29.9 L MCV 87 MCH 28.4 MCHC 32.8 RDW 15.4 H Plt Count 226 Seg Neutrophils % 83.5 H Lymphocytes % 6.8 L Monocytes % 7.8 Eosinophils % 1.1 Basophils % 0.8 Absolute Neutrophils 14.1 H Absolute Lymphocytes 1.1 Absolute Monocytes 1.3 Absolute Eosinophils 0.2 Absolute Basophils 0.1 Carbonic Acid HCO3/H2CO3 Ratio ABG pH ABG pCO2 ABG pO2 ABG HCO3 ABG O2 Saturation ABG Base Excess FiO2 Sodium 144.9 Potassium 4.2 Chloride 113 H Carbon Dioxide 18 L Anion Gap 14 BUN 80 H Creatinine 2.04 H Est GFR ( Amer) 29 L Est GFR (Non-Af Amer) 24 L Glucose 109 Calcium 9.4 Magnesium 3.3 H Fluid Type Fluid Source Fluid Color Fluid Appearance Fluid Viscosity Fluid WBC Fluid RBC 07/13/18 07/13/18 10:00 11:12 WBC RBC Hgb Hct MCV MCH MCHC RDW Plt Count Seg Neutrophils % Lymphocytes % Monocytes % Eosinophils % Basophils % Absolute Neutrophils Absolute Lymphocytes Absolute Monocytes Absolute Eosinophils Absolute Basophils Carbonic Acid 0.95 L HCO3/H2CO3 Ratio 22:1 ABG pH 7.44 ABG pCO2 31.7 L ABG pO2 49.9 L ABG HCO3 21.0 ABG O2 Saturation 87.2 L ABG Base Excess -2.5 FiO2 60% Sodium Potassium Chloride Carbon Dioxide Anion Gap BUN Creatinine Est GFR ( Amer) Est GFR (Non-Af Amer) Glucose Calcium Magnesium Fluid Type BRONCHIAL WASH Fluid Source LUNG Fluid Color STRAW Fluid Appearance CLOUDY Fluid Viscosity LIQUID Fluid WBC 4430 Fluid RBC 169 06/28/18 06/28/18 07/03/18 15:30 15:30 20:05 Creatine Kinase < 20 L 76 CK-MB (CK-2) Troponin I < 0.012 07/03/18 07/04/18 07/04/18 20:05 02:38 02:38 Creatine Kinase 83 CK-MB (CK-2) 4.98 H 6.58 H Troponin I 0.078 0.158 07/04/18 07/04/18 09:44 09:44 Creatine Kinase 43 CK-MB (CK-2) 5.94 H Troponin I 0.273 Impressions: Abdomen/Pelvis CT 07/01/18 00:00 IMPRESSION: 1. Moderate constipation. 2. Left exophytic solid renal lesion has increased in size and now measures 2.1 cm. This could represent complex cyst although a solid mass cannot be excluded. 3. Decubitus ulcer just right of midline overlying the sacrum. Inflammation ex tends to the level of the lower sacrum and coccyx. Bone involvement cannot be excluded. 4. Subcutaneous edema. Lung Scan-VQ NM 07/02/18 13:06 IMPRESSION: Very limited anterior and anterior oblique planar perfusion images on bed bound patient unable to tolerate flat positioning and unable to perform ventilation imaging. Generally nondiagnostic examination without obvious perfusion defect. Recommend CT pulmonary angiogram to further evaluate if there is persistent suspicion for pulmonary embolism. Head CT 07/07/18 00:00 IMPRESSION: No CT evidence of acute large territory ischemic change. Sphenoid sinusitis. Right mastoid air cell fluid. EVIDENCE OF ACUTE STROKE: NO. KUB X-Ray 07/08/18 00:00 IMPRESSION: NO RADIOGRAPHIC EVIDENCE FOR ACUTE ABDOMINAL DISEASE. Chest Ultrasound 07/13/18 00:00 IMPRESSION: Limited sonographic evaluation demonstrates mild right pleural effusion with associated consolidated lung, likely atelectasis Chest X-Ray 07/13/18 14:00 IMPRESSION: Markedly improved right sided aeration with mild persistent basilar opacities and small right effusion. No pneumothorax post bronchoscopy. Assessment and Plan - Diagnosis (1) Acute hypoxemic respiratory failure Is this a current diagnosis for this admission?: Yes Plan: Status post bronchoscopy by pulmonary. Repeat chest x-ray shows moderate improvement of right-sided pleural effusion. Continue ventilator support. ABG and chest x-ray tomorrow. Possible extubation tomorrow. (2) CKD (chronic kidney disease) stage 4, GFR 15-29 ml/min Is this a current diagnosis for this admission?: Yes Plan: At baseline. (3) Pleural effusion Is this a current diagnosis for this admission?: Yes Plan: Thoracentesis as mentioned. (4) Sacral decubitus ulcer, stage III Is this a current diagnosis for this admission?: No Plan: Wound culture grew MRSA. On vancomycin. Re-examined ulcer today which showed a few necrotic areas. Will have surgicalist re-evaluate wound.
[2018-07-13] MEDS: ACETYLCYSTEINE 20% SOLN 800 MG/4 ML VIAL.NEB IH SCH (19:41)
[2018-07-13] MEDS: ATORVASTATIN CALCIUM 40 MG TABLET PEG SCH (22:01)
[2018-07-14] MEDS: INSULIN LISPRO 100 UNIT/ML 3 ML VIAL SUBCUT SCH ×4 (00:24→18:57)
[2018-07-14] MEDS: IPRATROPIUM/ALBUTEROL 0.5-2.5 MG/3 ML AMPUL NEB SCH ×4 (02:14→20:27)
[2018-07-14 04:59] LABS: ABSOLUTE BASOPHILS # (AUTO) 0.1 10^3/uL (0.0-0.2); ABSOLUTE EOSINOPHILS # (AUTO) 0.5 10^3/uL (0.0-0.6); ABSOLUTE LYMPHOCYTES (AUTO) 1.1 10^3/uL (0.5-4.7); ABSOLUTE MONOCYTES (AUTO) 1.4 10^3/uL (0.1-1.4); ABSOLUTE NEUT (AUTO) 12.9 10^3/uL (1.7-8.2); BASOPHILS % (AUTO) 0.7 % (0-2); EOSINOPHILS % (AUTO) 3.3 % (0-6); HEMATOCRIT 27.3 % (36.0-47.0); MEAN CORPUSCULAR HEMOGLOBIN 28.3 pg (27.0-33.4); MEAN CORPUSCULAR VOLUME 86 fl (80-97); MONOCYTES % (AUTO) 8.7 % (3-13); PLATELET COUNT 225 10^3/uL (150-450); RED BLOOD COUNT 3.18 10^6/uL (3.72-5.28); RED CELL DISTRIBUTION WIDTH 15.4 % (11.5-14.0); SEGMENTED NEUTROPHILS % (AUTO) 80.3 % (42-78); TOTAL CELLS COUNTED % (AUTO) 100 %
[2018-07-14 05:20] LABS: ALANINE AMINOTRANSFERASE 25 U/L (9-52); ALBUMIN 2.4 g/dL (3.5-5.0); ALKALINE PHOSPHATASE 79 U/L (38-126); ANION GAP 10 (5-19); ASPARTATE AMINO TRANSFERASE 12 U/L (14-36); BILIRUBIN,DIRECT 0.6 mg/dL (0.0-0.4); BILIRUBIN,TOTAL 0.7 mg/dL (0.2-1.3); BLOOD UREA NITROGEN 76 mg/dL (7-20); CALCIUM 8.9 mg/dL (8.4-10.2); CARBON DIOXIDE 21 mmol/L (22-30); CHLORIDE 110 mmol/L (98-107); GLUCOSE 126 mg/dL (75-110); POTASSIUM 3.7 mmol/L (3.6-5.0); SODIUM 141.1 mmol/L (137-145); TOTAL PROTEIN 5.2 g/dL (6.3-8.2)
[2018-07-14] MEDS: GABAPENTIN 100 MG CAPSULE PEG SCH ×3 (05:39→23:11)
[2018-07-14 05:55] LABS: ARTERIAL BLOOD BASE EXCESS -1.5 mmol/L; ARTERIAL BLOOD FIO2 40%; ARTERIAL BLOOD H2CO3 0.91 mmol/L (1.05-1.35); ARTERIAL BLOOD HCO3 21.5 mmol/L (20-24); ARTERIAL BLOOD O2 SATURATION 95.2 % (94-98); ARTERIAL BLOOD PCO2 30.2 mmHg (35-45); ARTERIAL BLOOD PH 7.47 (7.35-7.45); ARTERIAL BLOOD PO2 69.9 mmHg (80-100); ARTERIAL BLOOD TOTAL CO2 22.4 mmol/L (21-25)
--- NOTE | 2018-07-14 07:57 | RADIOLOGY REPORT (SQ) ---
EXAM DESCRIPTION: XR CHEST 1 VIEW COMPLETED DATE/TME: 07/14/2018 06:00 CLINICAL HISTORY: 68 years Female, rresp failure COMPARISON: One day prior. NUMBER OF VIEWS/TECHNIQUE: 1/AP FINDINGS: Mild mixed interstitial and airspace opacity. Increased lung volume.Adequate appearing endotracheal tube. Atherosclerotic vascular disease. Normal cardiac silhouette size. No pneumothorax. Stable bony thorax. IMPRESSION: No significant change.
[2018-07-14] MEDS ORDERED: LABETALOL HCL INJ 20 MG/4 ML DISP.SYRIN IV PRN (08:03)
[2018-07-14] MEDS: ACETYLCYSTEINE 20% SOLN 800 MG/4 ML VIAL.NEB IH SCH ×2 (08:28→20:27)
[2018-07-14] MEDS: MIDAZOLAM HCL 50 MG/100 ML RTUINJ IV PRN ×2 (09:09→23:13)
--- NOTE | 2018-07-14 09:53 | PDOC PROGRESS REPORT ---
Subjective Progress Note for:: 07/14/18 Subjective:: patient intubated and sedated Reason For Visit: UTI ,DECUB SEPSIS, UREMIA Physical Exam Vital Signs: Temp Pulse Resp BP Pulse Ox 97.7 F 73 14 161/67 H 97 07/14/18 08:00 07/14/18 08:00 07/14/18 08:00 07/14/18 08:00 07/14/18 08:28 Intake & Output 07/13/18 07/14/18 07/15/18 06:59 06:59 06:59 Intake Total 375 398 Output Total 465 505 15 Balance -90 -107 -15 Weight 63.4 kg 65.5 kg General appearance: PRESENT: obese Head exam: PRESENT: atraumatic, normocephalic Eye exam: PRESENT: conjunctiva pink, EOMI Ear exam: PRESENT: normal external ear exam Mouth exam: PRESENT: moist, neck supple, tongue midline Throat exam: PRESENT: other - ET TUBE IN PLACE Neck exam: ABSENT: tracheal deviation, tracheostomy Vascular exam: PRESENT: normal capillary refill GI/Abdominal exam: PRESENT: normal bowel sounds, soft. ABSENT: firm, rigid Rectal exam: PRESENT: deferred Musculoskeletal exam: PRESENT: other - bilateral lower amputation. ABSENT: ambulatory, full ROM Neurological exam: ABSENT: oriented to person, oriented to time, oriented to situation Psychiatric exam: PRESENT: other - patient sedated Skin exam: PRESENT: dry, intact, other - stage III sacral decubiti Results Laboratory Results: 07/14/18 04:35 07/14/18 04:35 07/13/18 07/13/18 07/14/18 10:00 11:12 04:35 WBC RBC Hgb Hct MCV MCH MCHC RDW Plt Count Seg Neutrophils % Lymphocytes % Monocytes % Eosinophils % Basophils % Absolute Neutrophils Absolute Lymphocytes Absolute Monocytes Absolute Eosinophils Absolute Basophils Carbonic Acid 0.95 L HCO3/H2CO3 Ratio 22:1 ABG pH 7.44 ABG pCO2 31.7 L ABG pO2 49.9 L ABG HCO3 21.0 ABG O2 Saturation 87.2 L ABG Base Excess -2.5 FiO2 60% Sodium 141.1 Potassium 3.7 Chloride 110 H Carbon Dioxide 21 L Anion Gap 10 BUN 76 H Creatinine 2.14 H Est GFR ( Amer) 28 L Est GFR (Non-Af Amer) 23 L Glucose 126 H Calcium 8.9 Magnesium 3.1 H Total Bilirubin 0.7 AST 12 L ALT 25 Alkaline Phosphatase 79 Total Protein 5.2 L Albumin 2.4 L Fluid Type BRONCHIAL WASH Fluid Source LUNG Fluid Color STRAW Fluid Appearance CLOUDY Fluid Viscosity LIQUID Fluid WBC 4430 Fluid RBC 169 07/14/18 07/14/18 04:35 05:35 WBC 16.0 H RBC 3.18 L Hgb 9.0 L Hct 27.3 L MCV 86 MCH 28.3 MCHC 33.0 RDW 15.4 H Plt Count 225 Seg Neutrophils % 80.3 H Lymphocytes % 7.0 L Monocytes % 8.7 Eosinophils % 3.3 Basophils % 0.7 Absolute Neutrophils 12.9 H Absolute Lymphocytes 1.1 Absolute Monocytes 1.4 Absolute Eosinophils 0.5 Absolute Basophils 0.1 Carbonic Acid 0.91 L HCO3/H2CO3 Ratio 23:1 ABG pH 7.47 H ABG pCO2 30.2 L ABG pO2 69.9 L ABG HCO3 21.5 ABG O2 Saturation 95.2 ABG Base Excess -1.5 FiO2 40% Sodium Potassium Chloride Carbon Dioxide Anion Gap BUN Creatinine Est GFR ( Amer) Est GFR (Non-Af Amer) Glucose Calcium Magnesium Total Bilirubin AST ALT Alkaline Phosphatase Total Protein Albumin Fluid Type Fluid Source Fluid Color Fluid Appearance Fluid Viscosity Fluid WBC Fluid RBC 06/28/18 06/28/18 07/03/18 15:30 15:30 20:05 Creatine Kinase < 20 L 76 CK-MB (CK-2) Troponin I < 0.012 07/03/18 07/04/18 07/04/18 20:05 02:38 02:38 Creatine Kinase 83 CK-MB (CK-2) 4.98 H 6.58 H Troponin I 0.078 0.158 07/04/18 07/04/18 09:44 09:44 Creatine Kinase 43 CK-MB (CK-2) 5.94 H Troponin I 0.273 Impressions: Abdomen/Pelvis CT 07/01/18 00:00 IMPRESSION: 1. Moderate constipation. 2. Left exophytic solid renal lesion has increased in size and now measures 2.1 cm. This could represent complex cyst although a solid mass cannot be excluded. 3. Decubitus ulcer just right of midline overlying the sacrum. Inflammation extends to the level of the lower sacrum and coccyx. Bone involvement cannot be excluded. 4. Subcutaneous edema. Lung Scan-VQ NM 07/02/18 13:06 IMPRESSION: Very limited anterior and anterior oblique planar perfusion images on bed bound patient unable to tolerate flat positioning and unable to perform ventilation imaging. Generally nondiagnostic examination without obvious perfusion defect. Recommend CT pulmonary angiogram to further evaluate if there is persistent suspicion for pulmonary embolism. Head CT 07/07/18 00:00 IMPRESSION: No CT evidence of acute large territory ischemic change. Sphenoid sinusitis. Right mastoid air cell fluid. EVIDENCE OF ACUTE STROKE: NO. KUB X-Ray 07/08/18 00:00 IMPRESSION: NO RADIOGRAPHIC EVIDENCE FOR ACUTE ABDOMINAL DISEASE. Chest Ultrasound 07/13/18 00:00 IMPRESSION: Limited sonographic evaluation demonstrates mild right pleural effusion with associated consolidated lung, likely atelectasis Chest X-Ray 07/14/18 06:00 IMPRESSION: No significant change. Assessment & Plan - Diagnosis (1) Atelectasis Is this a current diagnosis for this admission?: Yes Plan: Reviewed chest xray post bronchoscopy 07/13/2018- increased lung volume from yesterdays reports (2) Acute and chronic respiratory failure with hypoxia Is this a current diagnosis for this admission?: Yes Plan: Decrease respiratory rate by 2 (3) CKD (chronic kidney disease) stage 4, GFR 15-29 ml/min Is this a current diagnosis for this admission?: Yes Plan: per nephrology (4) Pleural effusion Is this a current diagnosis for this admission?: Yes Plan: U/S shows 2-3 small locculated pleural effusions. (5) Peripheral vascular disease Is this a current diagnosis for this admission?: Yes Plan: Control hypertension, blood glucose, and cholesterol - Time Total Critical Time (Minutes): 40 Inpatient Scribe Statement - . Entered by Bonnie Ruelas, acting as scribe for Dr. Escobar.
[2018-07-14] MEDS: DEXTROSE 5%-1/2 NORMAL SALINE 1,000 ML IV PRN ×2 (10:54→23:13)
[2018-07-14] MEDS: LUBIPROSTONE 24 MCG CAPSULE PO SCH (11:06)
[2018-07-14] MEDS: CHOLECALCIFEROL (D3) 1,000 UNIT TABLET PO SCH (11:16)
[2018-07-14] MEDS: CLOPIDOGREL BISULFATE 75 MG TABLET PEG SCH (11:17)
[2018-07-14] MEDS: AMLODIPINE BESYLATE 10 MG TABLET PEG SCH (11:17)
[2018-07-14] MEDS: ASPIRIN 81 MG TABLET, CHEWABLE PEG SCH ×2 (11:18→23:12)
[2018-07-14] MEDS: LABETALOL HCL 200 MG TABLET PEG SCH ×2 (11:18→23:12)
[2018-07-14] MEDS: DOCUSATE SODIUM 100 MG/10 ML UDC PEG SCH (11:18)
[2018-07-14] MEDS: CETIRIZINE 5 MG TABLET PEG SCH (11:27)
--- NOTE | 2018-07-14 18:52 | PDOC PROGRESS REPORT ---
Subjective Progress Note for:: 07/14/18 Subjective:: This is a 68 year old female with a past medical history of CVA with immobility, peripheral vascular disease status post bilateral lower extremity amputation, chronic kidney disease, diabetes, chronic UTI and stage III sacral decubiti who was initially brought in to the emergency room for altered mental status found to have leukocytosis, acute on chronic renal failure, pyuria, 4 x 4 centimeter stage IV sacral decubiti, 2 x 3 cm stage II decubiti at the gluteal fold bilaterally. On 07/03, she went into PEA and had CPR for less than a minute and one dose of epi. Exact etiology appeared to have not been determined. There was question of PE but her renal function is not permissive for CTA and she is not able to participate with a VQ scan. She was downgraded from the ICU yesterday afternoon. 07/13/2018. No acute events overnight. Still ventilator dependent. Patient had a bronchoscopy with moderate resolution of right lung opacification. 07/14/2018. No acute events overnight. Moderate improvement of his her hypoxia after bronchoscopy. 07/14/2018: SBP 137-146, T-max 98.4, pulse 70s, SPO2 98% on mechanical ventilation, FiO2 35% SIMV, tidal volume 450, PEEP 5. ABG: pH 7.47, PCO2 30.2, PO2 69.9 up from 49.9, 5 to 40% down from 60%. WBC 16.0, hemoglobin 9.0, platelet 225, sodium 141, potassium 3.7, bicarb 21, creatinine 2.14 up from 2.04, Reason For Visit: UTI ,DECUB SEPSIS, UREMIA Physical Exam Vital Signs: Temp Pulse Resp BP Pulse Ox 98.4 F 73 12 141/61 H 98 07/14/18 18:00 07/14/18 18:00 07/14/18 18:40 07/14/18 18:40 07/14/18 18:40 Intake & Output 07/13/18 07/14/18 07/15/18 06:59 06:59 06:59 Intake Total 375 398 Output Total 465 505 260 Balance -90 -107 -260 Weight 63.4 kg 65.5 kg General appearance: PRESENT: other - Sedated and intubated. Head exam: PRESENT: atraumatic, normocephalic Respiratory exam: PRESENT: clear to auscultation nicole, crackles - Right lower lung.. ABSENT: rales, rhonchi, wheezes Cardiovascular exam: PRESENT: RRR. ABSENT: diastolic murmur, rubs, systolic murmur GI/Abdominal exam: PRESENT: normal bowel sounds, soft. ABSENT: distended, guarding, mass, organolmegaly, rebound, tenderness Neurological exam: PRESENT: other - Sedated and intubated. Results Laboratory Results: 07/14/18 04:35 07/14/18 04:35 07/14/18 07/14/18 07/14/18 04:35 04:35 05:35 WBC 16.0 H RBC 3.18 L Hgb 9.0 L Hct 27.3 L MCV 86 MCH 28.3 MCHC 33.0 RDW 15.4 H Plt Count 225 Seg Neutrophils % 80.3 H Lymphocytes % 7.0 L Monocytes % 8.7 Eosinophils % 3.3 Basophils % 0.7 Absolute Neutrophils 12.9 H Absolute Lymphocytes 1.1 Absolute Monocytes 1.4 Absolute Eosinophils 0.5 Absolute Basophils 0.1 Carbonic Acid 0.91 L HCO3/H2CO3 Ratio 23:1 ABG pH 7.47 H ABG pCO2 30.2 L ABG pO2 69.9 L ABG HCO3 21.5 ABG O2 Saturation 95.2 ABG Base Excess -1.5 FiO2 40% Sodium 141.1 Potassium 3.7 Chloride 110 H Carbon Dioxide 21 L Anion Gap 10 BUN 76 H Creatinine 2.14 H Est GFR ( Amer) 28 L Est GFR (Non-Af Amer) 23 L Glucose 126 H Calcium 8.9 Magnesium 3.1 H Total Bilirubin 0.7 AST 12 L ALT 25 Alkaline Phosphatase 79 Total Protein 5.2 L Albumin 2.4 L 07/13/18 11:12 Bronchial Washings Gram Stain - Final 07/13/18 11:12 Bronchial Washings Bronchial Washings Culture - Final Yeast, Not [place] Albicans Normal [place] Absent 06/28/18 06/28/18 07/03/18 15:30 15:30 20:05 Creatine Kinase < 20 L 76 CK-MB (CK-2) Troponin I < 0.012 07/03/18 07/04/18 07/04/18 20:05 02:38 02:38 Creatine Kinase 83 CK-MB (CK-2) 4.98 H 6.58 H Troponin I 0.078 0.158 07/04/18 07/04/18 09:44 09:44 Creatine Kinase 43 CK-MB (CK-2) 5.94 H Troponin I 0.273 Impressions: Abdomen/Pelvis CT 07/01/18 00:00 IMPRESSION: 1. Moderate constipation. 2. Left exophytic solid renal lesion has increased in size and now measures 2.1 cm. This could represent complex cyst although a solid mass cannot be excluded. 3. Decubitus ulcer just right of midline overlying the sacrum. Inflammation extends to the level of the lower sacrum and coccyx. Bone involvement cannot be excluded. 4. Subcutaneous edema. Lung Scan-VQ NM 07/02/18 13:06 IMPRESSION: Very limited anterior and anterior oblique planar perfusion images on bed bound patient unable to tolerate flat positioning and unable to perform ventilation imaging. Generally nondiagnostic examination without obvious perfusion defect. Recommend CT pulmonary angiogram to further evaluate if there is persistent suspicion for pulmonary embolism. Head CT 07/07/18 00:00 IMPRESSION: No CT evidence of acute large territory ischemic change. Sphenoid sinusitis. Right mastoid air cell fluid. EVIDENCE OF ACUTE STROKE: NO. KUB X-Ray 07/08/18 00:00 IMPRESSION: NO RADIOGRAPHIC EVIDENCE FOR ACUTE ABDOMINAL DISEASE. Chest Ultrasound 07/13/18 00:00 IMPRESSION: Limited sonographic evaluation demonstrates mild right pleural effusion with associated consolidated lung, likely atelectasis Chest X-Ray 07/14/18 06:00 IMPRESSION: No significant change. Assessment and Plan - Diagnosis (1) Acute hypoxemic respiratory failure Is this a current diagnosis for this admission?: Yes Plan: 07/14/2018: SBP 137-146, T-max 98.4, pulse 70s, SPO2 98% on mechanical ventilation, FiO2 35% SIMV, tidal volume 450, PEEP 5. ABG: pH 7.47, PCO2 30.2, PO2 69.9 up from 49.9, 5 to 40% down from 60%. Status post bronchoscopy by pulmonary 07/14/2018. Repeat chest x-ray shows moderate improvement of right-sided pleural effusion. Continue ventilator support. ABG and chest x-ray tomorrow. (2) CKD (chronic kidney disease) stage 4, GFR 15-29 ml/min Is this a current diagnosis for this admission?: Yes Plan: At baseline. WBC 16.0, hemoglobin 9.0, platelet 225, sodium 141, potassium 3.7, bicarb 21, creatinine 2.14 up from 2.04, (3) Pleural effusion Is this a current diagnosis for this admission?: Yes Plan: s/p post bronchoscopy on 07/13/2018 with removal of mucous plug. Moderate expansion and improvement of oxygenation and lungs post bronchoscopy. Hold for thoracentesis at this point. Chest x-ray tomorrow. Continue ventilator support. (4) Sacral decubitus ulcer, stage III Is this a current diagnosis for this admission?: No Plan: Wound culture grew MRSA. On vancomycin. Re-examined ulcer today which showed a few necrotic areas. Will have surgicalist re-evaluate wound.
[2018-07-14] MEDS: ATORVASTATIN CALCIUM 40 MG TABLET PEG SCH (23:12)
[2018-07-15] MEDS: INSULIN LISPRO 100 UNIT/ML 3 ML VIAL SUBCUT SCH ×4 (01:13→17:42)
[2018-07-15] MEDS: IPRATROPIUM/ALBUTEROL 0.5-2.5 MG/3 ML AMPUL NEB SCH ×4 (01:21→20:05)
[2018-07-15 04:19] LABS: ABSOLUTE BASOPHILS # (AUTO) 0.1 10^3/uL (0.0-0.2); ABSOLUTE EOSINOPHILS # (AUTO) 0.6 10^3/uL (0.0-0.6); ABSOLUTE LYMPHOCYTES (AUTO) 1.3 10^3/uL (0.5-4.7); ABSOLUTE MONOCYTES (AUTO) 1.1 10^3/uL (0.1-1.4); ABSOLUTE NEUT (AUTO) 9.9 10^3/uL (1.7-8.2); BASOPHILS % (AUTO) 0.4 % (0-2); EOSINOPHILS % (AUTO) 4.9 % (0-6); HEMATOCRIT 26.6 % (36.0-47.0); HEMOGLOBIN 8.9 g/dL (12.0-15.5); MEAN CORPUSCULAR HEMOGLOBIN 28.8 pg (27.0-33.4); MEAN CORPUSCULAR HGB CONC 33.4 g/dL (32.0-36.0); MEAN CORPUSCULAR VOLUME 86 fl (80-97); MONOCYTES % (AUTO) 8.6 % (3-13); PLATELET COUNT 238 10^3/uL (150-450); RED BLOOD COUNT 3.08 10^6/uL (3.72-5.28); RED CELL DISTRIBUTION WIDTH 15.6 % (11.5-14.0); SEGMENTED NEUTROPHILS % (AUTO) 76.1 % (42-78); TOTAL CELLS COUNTED % (AUTO) 100 %
[2018-07-15 04:38] LABS: ALANINE AMINOTRANSFERASE 27 U/L (9-52); ALBUMIN 2.2 g/dL (3.5-5.0); ALKALINE PHOSPHATASE 69 U/L (38-126); ANION GAP 10 (5-19); ASPARTATE AMINO TRANSFERASE 11 U/L (14-36); BILIRUBIN,DIRECT 0.5 mg/dL (0.0-0.4); BILIRUBIN,TOTAL 0.5 mg/dL (0.2-1.3); BLOOD UREA NITROGEN 72 mg/dL (7-20); CALCIUM 8.8 mg/dL (8.4-10.2); CARBON DIOXIDE 21 mmol/L (22-30); CHLORIDE 109 mmol/L (98-107); GLUCOSE 127 mg/dL (75-110); POTASSIUM 3.8 mmol/L (3.6-5.0); TOTAL PROTEIN 4.5 g/dL (6.3-8.2)
[2018-07-15] MEDS: GABAPENTIN 100 MG CAPSULE PEG SCH ×2 (05:16→15:53)
[2018-07-15 05:26] LABS: ARTERIAL BLOOD BASE EXCESS -4.1 mmol/L; ARTERIAL BLOOD H2CO3 0.97 mmol/L (1.05-1.35); ARTERIAL BLOOD HCO3 19.9 mmol/L (20-24); ARTERIAL BLOOD O2 SATURATION 95.3 % (94-98); ARTERIAL BLOOD PCO2 32.2 mmHg (35-45); ARTERIAL BLOOD PH 7.41 (7.35-7.45); ARTERIAL BLOOD PO2 74.7 mmHg (80-100); ARTERIAL BLOOD TOTAL CO2 20.8 mmol/L (21-25)
[2018-07-15 05:28] LABS: ARTERIAL BLOOD FIO2 35%
--- NOTE | 2018-07-15 07:23 | RADIOLOGY REPORT (SQ) ---
EXAM DESCRIPTION: XR CHEST 1 VIEW COMPLETED DATE/TME: 07/15/2018 06:00 CLINICAL HISTORY: 68 years Female, resp failure COMPARISON: One day prior. NUMBER OF VIEWS/TECHNIQUE: 1/AP FINDINGS: Moderate opacity-effusion of the right lower hemithorax. Small patchy opacity of the left lower lung. Moderate interstitial markings. Interval worsening. Adequate appearing endotracheal tube. Atherosclerotic vascular disease. Likely normal cardiac silhouette size partially obscured. No pneumothorax. Stable bony thorax. IMPRESSION: Moderate opacity-effusion of the right lower hemithorax. Small patchy opacity of the left lower lung. Moderate interstitial markings. Interval worsening.
[2018-07-15] MEDS: ACETYLCYSTEINE 20% SOLN 800 MG/4 ML VIAL.NEB IH SCH ×2 (08:05→20:05)
[2018-07-15] MEDS: DOCUSATE SODIUM 100 MG/10 ML UDC PEG SCH (10:23)
[2018-07-15] MEDS: LABETALOL HCL 200 MG TABLET PEG SCH (10:23)
[2018-07-15] MEDS: CLOPIDOGREL BISULFATE 75 MG TABLET PEG SCH (10:24)
[2018-07-15] MEDS: CETIRIZINE 5 MG TABLET PEG SCH (10:24)
[2018-07-15] MEDS: AMLODIPINE BESYLATE 10 MG TABLET PEG SCH (10:24)
[2018-07-15] MEDS: LUBIPROSTONE 24 MCG CAPSULE PO SCH (10:24)
[2018-07-15] MEDS: VANCOMYCIN HCL 500 MG in DEXTROSE 5%-WATER 100 ML IV SCH (10:25)
[2018-07-15] MEDS: ASPIRIN 81 MG TABLET, CHEWABLE PEG SCH (10:25)
[2018-07-15] MEDS: CHOLECALCIFEROL (D3) 1,000 UNIT TABLET PO SCH (10:25)
[2018-07-15] MEDS: LEVOFLOXACIN 500 MG/D5W RTU 500 MG/100 ML RTUPB IV SCH (10:25)
[2018-07-15] MEDS: DEXTROSE 5%-1/2 NORMAL SALINE 1,000 ML IV PRN (10:31)
[2018-07-15] MEDS: MIDAZOLAM HCL 50 MG/100 ML RTUINJ IV PRN (13:33)
--- NOTE | 2018-07-15 14:20 | PDOC PROGRESS REPORT ---
Subjective Progress Note for:: 07/15/18 Subjective:: This is a 68 year old female with a past medical history of CVA with immobility, peripheral vascular disease status post bilateral lower extremity amputation, chronic kidney disease, diabetes, chronic UTI and stage III sacral decubiti who was initially brought in to the emergency room for altered mental status found to have leukocytosis, acute on chronic renal failure, pyuria, 4 x 4 centimeter stage IV sacral decubiti, 2 x 3 cm stage II decubiti at the gluteal fold bilaterally. On 07/03, she went into PEA and had CPR for less than a minute and one dose of epi. Exact etiology appeared to have not been determined. There was question of PE but her renal function is not permissive for CTA and she is not able to participate with a VQ scan. She was downgraded from the ICU yesterday afternoon. 07/13/2018. No acute events overnight. Still ventilator dependent. Patient had a bronchoscopy with moderate resolution of right lung opacification. 07/14/2018. No acute events overnight. Moderate improvement of his her hypoxia after bronchoscopy. 07/15/2018. No acute events overnight. No significant improvement in patient status. Patient has worsening chest x-ray with enlarging right lung effusion. Had a conversation with Dr. Escobar program admin who is also following patient, we discussed patient's prognosis, and he suggested that I talked to his son who has power of privacy attorney, as patient is not improving and prognosis is not very optimistic at this point. I had a lengthy conversation with her son and updated him about prognosis and possible routes to take. either place a trach and transferring her to LTAC or making her LOADING UNIT OPERATOR SEATING as patient is not improving and her prognosis does not seem any better. Her son stated he needs to discuss it with her sister and will update us afterwards. Meanwhile he wants her full code. ' Reason For Visit: UTI ,DECUB SEPSIS, UREMIA Physical Exam Vital Signs: Temp Pulse Resp BP Pulse Ox 97.3 F 71 12 143/66 H 97 07/15/18 12:00 07/15/18 13:27 07/15/18 13:27 07/15/18 12:00 07/15/18 13:27 Intake & Output 07/14/18 07/15/18 07/16/18 06:59 06:59 06:59 Intake Total 398 1115 1004 Output Total 505 510 50 Balance -107 605 954 Weight 65.5 kg 66.8 kg General appearance: PRESENT: no acute distress, well-developed, well-nourished, other - Intubated. Head exam: PRESENT: atraumatic, normocephalic Neck exam: ABSENT: carotid bruit, JVD, lymphadenopathy, thyromegaly Respiratory exam: PRESENT: clear to auscultation nicole, decreased breath sounds - Right lower lung. ABSENT: rales, rhonchi, wheezes Cardiovascular exam: PRESENT: RRR. ABSENT: diastolic murmur, rubs, systolic murmur Neurological exam: PRESENT: other - Intubated and sedated. Results Laboratory Results: 07/15/18 03:50 07/15/18 10:30 07/15/18 07/15/18 07/15/18 03:50 03:50 05:14 WBC 13.0 H RBC 3.08 L Hgb 8.9 L Hct 26.6 L MCV 86 MCH 28.8 MCHC 33.4 RDW 15.6 H Plt Count 238 Seg Neutrophils % 76.1 Lymphocytes % 10.0 L Monocytes % 8.6 Eosinophils % 4.9 Basophils % 0.4 Absolute Neutrophils 9.9 H Absolute Lymphocytes 1.3 Absolute Monocytes 1.1 Absolute Eosinophils 0.6 Absolute Basophils 0.1 Carbonic Acid 0.97 L HCO3/H2CO3 Ratio 20:1 ABG pH 7.41 ABG pCO2 32.2 L ABG pO2 74.7 L ABG HCO3 19.9 L ABG O2 Saturation 95.3 ABG Base Excess -4.1 FiO2 35% Sodium 140.0 Potassium 3.8 Chloride 109 H Carbon Dioxide 21 L Anion Gap 10 BUN 72 H Creatinine 2.14 H Est GFR ( Amer) 28 L Est GFR (Non-Af Amer) 23 L Glucose 127 H Calcium 8.8 Magnesium 2.9 H Total Bilirubin 0.5 AST 11 L ALT 27 Alkaline Phosphatase 69 Total Protein 4.5 L Albumin 2.2 L 07/15/18 10:30 WBC RBC Hgb Hct MCV MCH MCHC RDW Plt Count Seg Neutrophils % Lymphocytes % Monocytes % Eosinophils % Basophils % Absolute Neutrophils Absolute Lymphocytes Absolute Monocytes Absolute Eosinophils Absolute Basophils Carbonic Acid HCO3/H2CO3 Ratio ABG pH ABG pCO2 ABG pO2 ABG HCO3 ABG O2 Saturation ABG Base Excess FiO2 Sodium Potassium Chloride Carbon Dioxide Anion Gap BUN Creatinine 2.07 H Est GFR ( Amer) 29 L Est GFR (Non-Af Amer) 24 L Glucose Calcium Magnesium Total Bilirubin AST ALT Alkaline Phosphatase Total Protein Albumin 07/13/18 11:12 Bronchial Washings Gram Stain - Final 07/13/18 11:12 Bronchial Washings Bronchial Washings Culture - Final Yeast, Not [place] Albicans Normal [place] Absent 06/28/18 06/28/18 07/03/18 15:30 15:30 20:05 Creatine Kinase < 20 L 76 CK-MB (CK-2) Troponin I < 0.012 07/03/18 07/04/18 07/04/18 20:05 02:38 02:38 Creatine Kinase 83 CK-MB (CK-2) 4.98 H 6.58 H Troponin I 0.078 0.158 07/04/18 07/04/18 09:44 09:44 Creatine Kinase 43 CK-MB (CK-2) 5.94 H Troponin I 0.273 Impressions: Abdomen/Pelvis CT 07/01/18 00:00 IMPRESSION: 1. Moderate constipation. 2. Left exophytic solid renal lesion has increased in size and now measures 2.1 cm. This could represent complex cyst although a solid mass cannot be excluded. 3. Decubitus ulcer just right of midline overlying the sacrum. Inflammation extends to the level of the lower sacrum and coccyx. Bone involvement cannot be excluded. 4. Subcutaneous edema. Lung Scan-VQ NM 07/02/18 13:06 IMPRESSION: Very limited anterior and anterior oblique planar perfusion images on bed bound patient unable to tolerate flat positioning and unable to perform ventilation imaging. Generally nondiagnostic examination without obvious perfusion defect. Recommend CT pulmonary angiogram to further evaluate if there is persistent suspicion for pulmonary embolism. Head CT 07/07/18 00:00 IMPRESSION: No CT evidence of acute large territory ischemic change. Sphenoid sinusitis. Right mastoid air cell fluid. EVIDENCE OF ACUTE STROKE: NO. KUB X-Ray 07/08/18 00:00 IMPRESSION: NO RADIOGRAPHIC EVIDENCE FOR ACUTE ABDOMINAL DISEASE. Chest Ultrasound 07/13/18 00:00 IMPRESSION: Limited sonographic evaluation demonstrates mild right pleural effusion with associated consolidated lung, likely atelectasis Chest X-Ray 07/15/18 06:00 IMPRESSION: Moderate opacity-effusion of the right lower hemithorax. Small patchy opacity of the left lower lung. Moderate interstitial markings. Interval worsening. Assessment and Plan - Diagnosis (1) Acute hypoxemic respiratory failure Is this a current diagnosis for this admission?: Yes Plan: No significant improvement. Multifactorial. Likely due to recurrent aspiration pneumonia/pneumonitis due to being unable to clear her secretion possibly a sequela of her CVA as will as MRSA pneumonia. 06/25/2018 tracheal aspirate positive for MRSA. 06/28/2018 urine culture positive for for MRSA. 07/13/2018 bronchial washing 1/3 growing yeast, 2/3 still pending. 07/15/2018. SBP 139-151, T-max 98.4, pulse 70s, story rate 12 intubated, SPO2 97% FiO2 30%. SIMV plus BS, rates it 12, volume 450, PEEP 5. ABG: pH 7.41, PCO2 32.2, PO2 74.7, FiO2 35%. 07/14/2018: SBP 137-146, T-max 98.4, pulse 70s, SPO2 98% on mechanical ventilat ion, FiO2 35% SIMV, tidal volume 450, PEEP 5. ABG: pH 7.47, PCO2 30.2, PO2 69.9 up from 49.9, 5 to 40% down from 60%. Status post bronchoscopy by pulmonary 07/14/2018. Repeat x-ray shows worsening of the right lower lobe effusion. Continue ventilator support. ABG and chest x-ray tomorrow. (2) CKD (chronic kidney disease) stage 4, GFR 15-29 ml/min Is this a current diagnosis for this admission?: Yes Plan: At baseline. 07/15/2018. WBC 13.0, hemoglobin 8.9, platelets 238, sodium 140, potassium 3.8, bicarb 21, BUN 72, creatinine 2.07 down from 2.14, FSG 127, POC glucose 130-141, magnesium 2.9 07/14/2018. WBC 16.0, hemoglobin 9.0, platelet 225, sodium 141, potassium 3.7, bicarb 21, creatinine 2.14 up from 2.04, (3) Pleural effusion Is this a current diagnosis for this admission?: Yes Plan: Recurrent. Likely due to recurrent aspiration as patient is not able to clear her secretions due to CVA 07/01/2018. 2D echo negative for any vegetation, left ventricular ejection fraction 60%. 07/13/2018. Status post bronchoscopy on with removal of mucous plug. Moderate expansion and improvement of oxygenation and lungs post bronchoscopy fortunately repeat chest x-ray the following day shows re-expansion of the right-sided pleural effusion. Chest x-ray tomorrow. Continue ventilator support. 07/15/2018. Had a conversation with Dr. Escobar program admin who is also following patient, we discussed patient's prognosis, and he suggested that I talked to his son who has power of privacy attorney, as patient is not improving and prognosis is not very optimistic at this point. I had a lengthy conversation with her son and updated him about prognosis and possible routes to take. either place a trach and transferring her to LTAC or making her LOADING UNIT OPERATOR SEATING as patient is not improving and her prognosis does not seem any better. Her son stated he needs to discuss it with her sister and will update us afterwards. Meanwhile he wants her full code. ' (4) Sacral decubitus ulcer, stage III Is this a current diagnosis for this admission?: No Plan: Patient has sacral decubitus stage III. No active discharge or drainage will collection. Still looks edematous necrotic tissue, no noticeable collection or drainage. Was evaluated by surgery and at this point no drainage she will collection was observed. 07/01/2018. CT abdomen and pelvis. Moderate constipation. Decubitus ulcer just right of midline overlying the sacrum. Inflammation extends to the level of the lower sacrum and coccyx. Bone involvement cannot be excluded. (5) Hypermagnesemia Is this a current diagnosis for this admission?: Yes Plan: Improving. Likely due to worsening kidney function. Patient is not on supplemental magnesium. 07/15/2018. Sodium 140, potassium 3.8, bicarb 21, BUN 72, creatinine 2.07 down from 2.14, FSG 127, POC glucose 130-141, magnesium 2.9 Medium level tomorrow. (6) Diabetes mellitus type 2 in obese Is this a current diagnosis for this admission?: No Plan: Continue diabetic diet, Accu-Chek, sliding scale insulin, long-acting insulin, pre-meal insulin, adjust dosage as needed. (7) Hypertension Qualifiers: Hypertension type: essential hypertension Qualified Code(s): I10 - Essential (primary) hypertension Is this a current diagnosis for this admission?: No Plan: Controlled. 07/15/2018. SBP 139-151, T-max 98.4, pulse 70s Continue Amlodipine 10 mg p.o. daily, clonidine 0.3 mg TD every 24 hours, labetalol 100 mg p.o. twice daily,
[2018-07-16] MEDS: GABAPENTIN 100 MG CAPSULE PEG SCH ×4 (00:12→22:25)
[2018-07-16] MEDS: LABETALOL HCL 200 MG TABLET PEG SCH ×4 (00:12→22:26)
[2018-07-16] MEDS: ASPIRIN 81 MG TABLET, CHEWABLE PEG SCH ×3 (00:13→21:30)
[2018-07-16] MEDS: INSULIN LISPRO 100 UNIT/ML 3 ML VIAL SUBCUT SCH ×4 (00:13→18:17)
[2018-07-16] MEDS: ATORVASTATIN CALCIUM 40 MG TABLET PEG SCH ×2 (00:13→22:25)
[2018-07-16] MEDS: DEXTROSE 5%-1/2 NORMAL SALINE 1,000 ML IV PRN ×2 (00:14→13:57)
[2018-07-16] MEDS: IPRATROPIUM/ALBUTEROL 0.5-2.5 MG/3 ML AMPUL NEB SCH ×4 (02:24→19:39)
[2018-07-16 03:50] LABS: ABSOLUTE EOSINOPHILS # (AUTO) 0.7 10^3/uL (0.0-0.6); ABSOLUTE LYMPHOCYTES (AUTO) 1.3 10^3/uL (0.5-4.7); ABSOLUTE MONOCYTES (AUTO) 0.9 10^3/uL (0.1-1.4); ABSOLUTE NEUT (AUTO) 8.5 10^3/uL (1.7-8.2); BASOPHILS % (AUTO) 0.4 % (0-2); EOSINOPHILS % (AUTO) 5.8 % (0-6); HEMOGLOBIN 8.6 g/dL (12.0-15.5); LYMPHOCYTES % (AUTO) 11.1 % (13-45); MEAN CORPUSCULAR HEMOGLOBIN 28.7 pg (27.0-33.4); MEAN CORPUSCULAR HGB CONC 33.1 g/dL (32.0-36.0); MEAN CORPUSCULAR VOLUME 87 fl (80-97); MONOCYTES % (AUTO) 7.7 % (3-13); PLATELET COUNT 229 10^3/uL (150-450); RED CELL DISTRIBUTION WIDTH 15.6 % (11.5-14.0); TOTAL CELLS COUNTED % (AUTO) 100 %; WHITE BLOOD COUNT 11.4 10^3/uL (4.0-10.5)
[2018-07-16 04:15] LABS: ANION GAP 12 (5-19); BLOOD UREA NITROGEN 71 mg/dL (7-20); CALCIUM 8.7 mg/dL (8.4-10.2); CARBON DIOXIDE 19 mmol/L (22-30); CHLORIDE 109 mmol/L (98-107); GLUCOSE 104 mg/dL (75-110); POTASSIUM 3.6 mmol/L (3.6-5.0); SODIUM 139.5 mmol/L (137-145)
[2018-07-16] MEDS: MIDAZOLAM HCL 50 MG/100 ML RTUINJ IV PRN (04:48)
[2018-07-16 06:29] LABS: ARTERIAL BLOOD BASE EXCESS -2.6 mmol/L; ARTERIAL BLOOD HCO3 21.9 mmol/L (20-24); ARTERIAL BLOOD O2 SATURATION 95.6 % (94-98); ARTERIAL BLOOD PCO2 36.5 mmHg (35-45); ARTERIAL BLOOD PO2 78.2 mmHg (80-100)
[2018-07-16 06:38] LABS: ARTERIAL BLOOD FIO2 30%
--- NOTE | 2018-07-16 06:43 | RADIOLOGY REPORT (SQ) ---
EXAM DESCRIPTION: XR CHEST 1 VIEW COMPLETED DATE/TME: 07/16/2018 06:00 CLINICAL HISTORY: 68 years Female, resp failure COMPARISON: One day prior. NUMBER OF VIEWS/TECHNIQUE: 1/AP FINDINGS: Moderate mixed airspace and interstitial opacities. Small left lower retrocardiac opacity. Moderate hazy opacity-effusion of the right lower hemithorax. Adequate appearing endotracheal tube. Atherosclerotic vascular disease. Normal cardiac silhouette size. No pneumothorax. Stable bony thorax. IMPRESSION: No significant change.
[2018-07-16] MEDS: ACETYLCYSTEINE 20% SOLN 800 MG/4 ML VIAL.NEB IH SCH ×2 (08:13→19:38)
[2018-07-16] MEDS: LUBIPROSTONE 24 MCG CAPSULE PO SCH (09:50)
[2018-07-16] MEDS: CETIRIZINE 5 MG TABLET PEG SCH (10:36)
[2018-07-16] MEDS: DOCUSATE SODIUM 100 MG/10 ML UDC PEG SCH (10:36)
[2018-07-16] MEDS: CLOPIDOGREL BISULFATE 75 MG TABLET PEG SCH (10:36)
[2018-07-16] MEDS: AMLODIPINE BESYLATE 10 MG TABLET PEG SCH (10:37)
[2018-07-16] MEDS: CLONIDINE 0.3 MG/24 HR PATCH.TDWK TD SCH (10:37)
[2018-07-16] MEDS: CHOLECALCIFEROL (D3) 1,000 UNIT TABLET PO SCH (10:37)
--- NOTE | 2018-07-16 16:03 | RADIOLOGY REPORT (SQ) ---
EXAM DESCRIPTION: KUB/ABDOMEN (SINGLE VIEW) COMPLETED DATE/TIME: 07/16/2018 3:44 pm REASON FOR STUDY: ileus COMPARISON: 07/08/2018. NUMBER OF VIEWS: One view. TECHNIQUE: Supine radiographic image of the abdomen acquired. LIMITATIONS: None. FINDINGS: BOWEL GAS PATTERN: Nonspecific. Gas in nondistended bowel which looks like colon predomin antly. CALCIFICATIONS: Vascular. SOFT TISSUES: No gross mass or suggestion of organomegaly. HARDWARE: G-tube in place left upper quadrant. Carrillo catheter in the pelvis. BONES: Osteopenic. OTHER: No other significant finding. IMPRESSION: NO RADIOGRAPHIC EVIDENCE FOR ACUTE ABDOMINAL DISEASE. TECHNICAL DOCUMENTATION: JOB ID: [id number] [employer]- All Rights Reserved Reading location - IP/workstation name: [email or web address]
[2018-07-16] MEDS: PANTOPRAZOLE SODIUM 40 MG VIAL IV SCH (16:56)
--- NOTE | 2018-07-16 17:00 | PDOC PROGRESS REPORT ---
Subjective Progress Note for:: 07/16/18 Subjective:: This is a 68 year old female with a past medical history of CVA with immobility, peripheral vascular disease status post bilateral lower extremity amputation, chronic kidney disease, diabetes, chronic UTI and stage III sacral decubiti who was initially brought in to the emergency room for altered mental status found to have leukocytosis, acute on chronic renal failure, pyuria, 4 x 4 centimeter stage IV sacral decubiti, 2 x 3 cm stage II decubiti at the gluteal fold bilaterally. On 07/03, she went into PEA and had CPR for less than a minute and one dose of epi. Exact etiology appeared to have not been determined. There was question of PE but her renal function is not permissive for CTA and she is not able to participate with a VQ scan. She was downgraded from the ICU yesterday afternoon. 07/13/2018. No acute events overnight. Still ventilator dependent. Patient had a bronchoscopy with moderate resolution of right lung opacification. 07/14/2018. No acute events overnight. Moderate improvement of his her hypoxia after bronchoscopy. 07/15/2018. No acute events overnight. No significant improvement in patient status. Patient has worsening chest x-ray with enlarging right lung effusion. Had a conversation with Dr. Escobar quality supervisor who is also following patient, we discussed patient's prognosis, and he suggested that I talked to his son who has power of sports attorney, as patient is not improving and prognosis is not very optimistic at this point. I had a lengthy conversation with her son and updated him about prognosis and possible routes to take. either place a trach and transferring her to LTAC or making her RUG WASHER as patient is not improving and her prognosis does not seem any better. Her son stated he needs to discuss it with her sister and will update us afterwards. Meanwhile he wants her full code. ' 07/16/2018. Remains intubated, high gastric residuals fecalith material, mild improvement of hypoxemia and leukocytosis. Still full code family has not has made a decision about CODE STATUS of yet. SBP 847358, T-max 98.1, pulse 70s, respiratory rate 12 intubated, SPO2 96% 5 to 30% mechanically ventilated, SIMV plus BS, TV 450, PEEP 5. Minute ventilation 5.4. BC 11.4, hemoglobin 8.6, platelets 229, pH 7.40, PCO2 36.5, PO2 78.2, FiO2 30% mechanical ventilation. Sodium 139.5, potassium 3.6, bicarb 19, creatinine 2.05, potassium 2.8. Reason For Visit: UTI ,DECUB SEPSIS, UREMIA Physical Exam Vital Signs: Temp Pulse Resp BP Pulse Ox 98.1 F 78 12 161/64 H 96 07/16/18 16:00 07/16/18 16:00 07/16/18 16:00 07/16/18 16:00 07/16/18 16:00 Intake & Output 07/15/18 07/16/18 07/17/18 06:59 06:59 06:59 Intake Total 1115 2310 1000 Output Total 510 905 600 Balance 605 1405 400 Weight 66.8 kg 66.8 kg General appearance: PRESENT: no acute distress, well-developed, well-nourished, other - intubated Neck exam: ABSENT: carotid bruit, JVD, lymphadenopathy, thyromegaly Respiratory exam: PRESENT: decreased breath sounds - RLL. ABSENT: rales, rhonchi, wheezes Cardiovascular exam: PRESENT: RRR. ABSENT: diastolic murmur, rubs, systolic murmur GI/Abdominal exam: PRESENT: hypoactive bowel sounds, soft. ABSENT: distended, guarding, mass, organolmegaly, rebound, tenderness Neurological exam: PRESENT: other - Sedated and intubated Results Laboratory Results: 07/16/18 03:41 07/16/18 03:41 07/16/18 07/16/18 07/16/18 03:41 03:41 05:55 WBC 11.4 H RBC 3.00 L Hgb 8.6 L Hct 26.0 L MCV 87 MCH 28.7 MCHC 33.1 RDW 15.6 H Plt Count 229 Seg Neutrophils % 75.0 Lymphocytes % 11.1 L Monocytes % 7.7 Eosinophils % 5.8 Basophils % 0.4 Absolute Neutrophils 8.5 H Absolute Lymphocytes 1.3 Absolute Monocytes 0.9 Absolute Eosinophils 0.7 H Absolute Basophils 0.0 Carbonic Acid 1.10 HCO3/H2CO3 Ratio 19:1 ABG pH 7.40 ABG pCO2 36.5 ABG pO2 78.2 L ABG HCO3 21.9 ABG O2 Saturation 95.6 ABG Base Excess -2.6 FiO2 30% Sodium 139.5 Potassium 3.6 Chloride 109 H Carbon Dioxide 19 L Anion Gap 12 BUN 71 H Creatinine 2.05 H Est GFR ( Amer) 29 L Est GFR (Non-Af Amer) 24 L Glucose 104 Calcium 8.7 Magnesium 2.8 H 07/13/18 11:12 Bronchial Washings Fungal Smear - Final 07/13/18 11:12 Bronchial Washings Fungal Smear - Final 07/13/18 11:12 Bronchial Washings AFB Smear Concentration - Final 07/13/18 11:12 Bronchial Washings Acid Fast Bacilli Smear - Final 06/28/18 06/28/18 07/03/18 15:30 15:30 20:05 Creatine Kinase < 20 L 76 CK-MB (CK-2) Troponin I < 0.012 NT-Pro-B Natriuret Pep 07/03/18 07/04/18 07/04/18 20:05 02:38 02:38 Creatine Kinase 83 CK-MB (CK-2) 4.98 H 6.58 H Troponin I 0.078 0.158 NT-Pro-B Natriuret Pep 07/04/18 07/04/18 07/16/18 09:44 09:44 03:41 Creatine Kinase 43 CK-MB (CK-2) 5.94 H Troponin I 0.273 NT-Pro-B Natriuret Pep 6580 H Impressions: Abdomen/Pelvis CT 07/01/18 00:00 IMPRESSION: 1. Moderate constipation. 2. Left exophytic solid renal lesion has increased in size and now measures 2.1 cm. This could represent complex cyst although a solid mass cannot be excluded. 3. Decubitus ulcer just right of midline overlying the sacrum. Inflammation extends to the level of the lower sacrum and coccyx. Bone involvement cannot be excluded. 4. Subcutaneous edema. Lung Scan-VQ [place] 07/02/18 13:06 IMPRESSION: Very limited anterior and anterior oblique planar perfusion images on bed bound patient unable to tolerate flat positioning and unable to perform ventilation imaging. Generally nondiagnostic examination without obvious perfusion defect. Recommend CT pulmonary angiogram to further evaluate if there is persistent suspicion for pulmonary embolism. Head CT 07/07/18 00:00 IMPRESSION: No CT evidence of acute large territory ischemic change. Sphenoid sinusitis. Right mastoid air cell fluid. EVIDENCE OF ACUTE STROKE: NO. Chest Ultrasound 07/13/18 00:00 IMPRESSION: Limited sonographic evaluation demonstrates mild right pleural effusion with associated consolidated lung, likely atelectasis KUB X-Ray 07/16/18 00:00 IMPRESSION: NO RADIOGRAPHIC EVIDENCE FOR ACUTE ABDOMINAL DISEASE. Chest X-Ray 07/16/18 06:00 IMPRESSION: No significant change. Assessment and Plan - Diagnosis (1) Acute hypoxemic respiratory failure Is this a current diagnosis for this admission?: Yes Plan: Mild improvement. X-ray remains unchanged. Multifactorial. Likely due to recurrent aspiration pneumonia/pneumonitis due to being unable to clear her secretion possibly a sequela of her CVA as will as MRSA pneumonia. 06/25/2018 tracheal aspirate positive for MRSA. 06/28/2018 urine culture positive for for MRSA. 07/13/2018 bronchial washing 1/3 growing yeast, 2/3 still pending. 07/16/2018: SBP 106665, T-max 98.1, pulse 70s, RR 12 , SPO2 96% 5 to 30% mechanically ventilated, SIMV plus BS, TV 450, PEEP 5. MV 5.4. ABG: pH 7.40, PCO2 36.5, PO2 78.2, FiO2 30% 07/15/2018. SBP 139-151, T-max 98.4, pulse 70s, story rate 12 intubated, SPO2 97% FiO2 30%. SIMV plus BS, rates it 12, volume 450, PEEP 5. ABG: pH 7.41, PCO2 32.2, PO2 74.7, FiO2 35%. 07/14/2018: SBP 137-146, T-max 98.4, pulse 70s, SPO2 98% on mechanical ventilation, FiO2 35% SIMV, tidal volume 450, PEEP 5. ABG: pH 7.47, PCO2 30.2, PO2 69.9 up from 49.9, 5 to 40% down from 60%. Status post bronchoscopy by pulmonary 07/14/2018. Repeat x-ray shows worsening of the right lower lobe effusion. Continue ventilator support empiric IV antibiotics. ABG and chest x-ray tomorrow. (2) CKD (chronic kidney disease) stage 4, GFR 15-29 ml/min Is this a current diagnosis for this admission?: Yes Plan: At baseline. 07/16/2018: WBC 11.4, hemoglobin 8.6, platelets 229, pH 7.40, PCO2 36.5, PO2 78.2, FiO2 30% mechanical ventilation. Sodium 139.5, potassium 3.6, bicarb 19, creatinine 2.05, Mg 2.8. 07/15/2018. WBC 13.0, hemoglobin 8.9, platelets 238, sodium 140, potassium 3.8, bicarb 21, BUN 72, creatinine 2.07 down from 2.14, FSG 127, POC glucose 130-141, magnesium 2.9 07/14/2018. WBC 16.0, hemoglobin 9.0, platelet 225, sodium 141, potassium 3.7, bicarb 21, creatinine 2.14 up from 2.04, Volume status and electrolytes. Replace as needed. (3) Pleural effusion Is this a current diagnosis for this admission?: Yes Plan: Chest x-ray remains unchanged. Recurrent. Likely due to recurrent aspiration as patient is not able to clear her secretions due to CVA 07/01/2018. 2D echo negative for any vegetation, left ventricular ejection fraction 60%. 07/13/2018. Status post bronchoscopy on with removal of mucous plug. Moderate expansion and improvement of oxygenation and lungs post bronchoscopy fortunately repeat chest x-ray the following day shows re-expansion of the right-sided pleural effusion. Chest x-ray tomorrow. Continue ventilator support. 07/15/2018. Had a conversation with Dr. Escobar quality supervisor who is also following patient, we discussed patient's prognosis, and he suggested that I talked to his son who has power of sports attorney, as patient is not improving and prognosis is not very optimistic at this point. I had a lengthy conversation with her son and updated him about prognosis and possible routes to take. either place a trach and transferring her to LTAC or making her RUG WASHER as patient is not improving and her prognosis does not seem any better. Her son stated he needs to discuss it with her sister and will update us afterwards. Meanwhile he wants her full code. ' (4) Sacral decubitus ulcer, stage III Is this a current diagnosis for this admission?: No Plan: Patient has sacral decubitus stage III. No active discharge or drainage will collection. Still looks edematous necrotic tissue, no noticeable collection or drainage. Was evaluated by surgery and at this point no drainage she will collection was observed. 07/01/2018. CT abdomen and pelvis. Moderate constipation. Decubitus ulcer just right of midline overlying the sacrum. Inflammation extends to the level of the lower sacrum and coccyx. Bone involvement cannot be excluded. (5) Diabetes mellitus type 2 in obese Is this a current diagnosis for this admission?: No Plan: Continue diabetic diet, Accu-Chek, sliding scale insulin, long-acting insulin, pre-meal insulin, adjust dosage as needed. (6) Hypertension Qualifiers: Hypertension type: essential hypertension Qualified Code(s): I10 - Essential (primary) hypertension Is this a current diagnosis for this admission?: No Plan: Controlled. 07/16/2018: SBP 654059, T-max 98.1, pulse 70s, respiratory rate 12 07/15/2018. SBP 139-151, T-max 98.4, pulse 70s Continue Amlodipine 10 mg p.o. daily, clonidine 0.3 mg TD every 24 hours, l abetalol 100 mg p.o. twice daily. PRN labetalol.
[2018-07-16] MEDS: LACTULOSE SYRUP 20 GM/30 ML UDCUP PR PRN (17:15)
[2018-07-16] MEDS ORDERED: PANTOPRAZOLE SODIUM 40 MG VIAL IV ONE (22:29)
[2018-07-16] MEDS ORDERED: DESMOPRESSIN NASAL SPRAY 100 MCG/1 ML 5 ML NASL ONE (22:39)
[2018-07-16 23:01] LABS: INTERNATIONAL RATION (INR) 1.11; PROTHROMBIN TIME 14.9 SEC (11.4-15.4)
[2018-07-16] MEDS ORDERED: LABETALOL HCL INJ 20 MG/4 ML DISP.SYRIN IV ONE (23:01)
[2018-07-16 23:04] LABS: HEMATOCRIT 26.1 % (36.0-47.0); HEMOGLOBIN 8.7 g/dL (12.0-15.5); MEAN CORPUSCULAR HEMOGLOBIN 28.6 pg (27.0-33.4); MEAN CORPUSCULAR HGB CONC 33.3 g/dL (32.0-36.0); MEAN CORPUSCULAR VOLUME 86 fl (80-97); PLATELET COUNT 274 10^3/uL (150-450); RED BLOOD COUNT 3.03 10^6/uL (3.72-5.28); RED CELL DISTRIBUTION WIDTH 15.4 % (11.5-14.0); WHITE BLOOD COUNT 9.8 10^3/uL (4.0-10.5)
[2018-07-17] MEDS ORDERED: HYDRALAZINE HCL INJ/PF 20 MG/1 ML SDV IV PRN (00:05)
[2018-07-17] MEDS ORDERED: HYDRALAZINE HCL INJ/PF 20 MG/1 ML SDV ONE (00:09)
[2018-07-17] MEDS ORDERED: DESMOPRESSIN ACETATE INJ 4 MCG/1 ML AMPULE ONE ×2 (01:43→02:36)
[2018-07-17] MEDS: INSULIN LISPRO 100 UNIT/ML 3 ML VIAL SUBCUT SCH ×4 (02:13→17:53)
[2018-07-17] MEDS ORDERED: DESMOPRESSIN ACETATE 20 MCG in NORMAL SALINE 50 ML IV ONE (02:15)
[2018-07-17] MEDS: DEXTROSE 5%-1/2 NORMAL SALINE 1,000 ML IV PRN ×2 (02:15→22:26)
[2018-07-17] MEDS: PANTOPRAZOLE SODIUM 40 MG VIAL IV PRN (02:25)
[2018-07-17] MEDS: IPRATROPIUM/ALBUTEROL 0.5-2.5 MG/3 ML AMPUL NEB SCH ×4 (02:29→20:38)
[2018-07-17 04:02] LABS: ARTERIAL BLOOD BASE EXCESS -4.3 mmol/L; ARTERIAL BLOOD H2CO3 0.95 mmol/L (1.05-1.35); ARTERIAL BLOOD HCO3 19.2 mmol/L (20-24); ARTERIAL BLOOD O2 SATURATION 94.2 % (94-98); ARTERIAL BLOOD PCO2 31.4 mmHg (35-45); ARTERIAL BLOOD PO2 69.3 mmHg (80-100); ARTERIAL BLOOD TOTAL CO2 20.2 mmol/L (21-25)
[2018-07-17 04:04] LABS: ARTERIAL BLOOD FIO2 30%
[2018-07-17 06:05] LABS: ABSOLUTE EOSINOPHILS # (AUTO) 0.7 10^3/uL (0.0-0.6); ABSOLUTE LYMPHOCYTES (AUTO) 1.1 10^3/uL (0.5-4.7); ABSOLUTE MONOCYTES (AUTO) 0.8 10^3/uL (0.1-1.4); ABSOLUTE NEUT (AUTO) 6.2 10^3/uL (1.7-8.2); BASOPHILS % (AUTO) 0.5 % (0-2); EOSINOPHILS % (AUTO) 7.9 % (0-6); HEMOGLOBIN 8.1 g/dL (12.0-15.5); LYMPHOCYTES % (AUTO) 12.4 % (13-45); MEAN CORPUSCULAR HEMOGLOBIN 28.1 pg (27.0-33.4); MEAN CORPUSCULAR HGB CONC 32.6 g/dL (32.0-36.0); MEAN CORPUSCULAR VOLUME 86 fl (80-97); MONOCYTES % (AUTO) 8.9 % (3-13); PLATELET COUNT 243 10^3/uL (150-450); RED BLOOD COUNT 2.89 10^6/uL (3.72-5.28); RED CELL DISTRIBUTION WIDTH 16.1 % (11.5-14.0); SEGMENTED NEUTROPHILS % (AUTO) 70.3 % (42-78); TOTAL CELLS COUNTED % (AUTO) 100 %; WHITE BLOOD COUNT 8.9 10^3/uL (4.0-10.5)
[2018-07-17 06:30] LABS: ALANINE AMINOTRANSFERASE 24 U/L (9-52); ALBUMIN 2.3 g/dL (3.5-5.0); ALKALINE PHOSPHATASE 84 U/L (38-126); ANION GAP 11 (5-19); ASPARTATE AMINO TRANSFERASE 19 U/L (14-36); BILIRUBIN,DIRECT 0.5 mg/dL (0.0-0.4); BILIRUBIN,TOTAL 0.6 mg/dL (0.2-1.3); BLOOD UREA NITROGEN 66 mg/dL (7-20); CALCIUM 8.9 mg/dL (8.4-10.2); CARBON DIOXIDE 19 mmol/L (22-30); CHLORIDE 111 mmol/L (98-107); GLUCOSE 121 mg/dL (75-110); POTASSIUM 3.4 mmol/L (3.6-5.0); SODIUM 140.6 mmol/L (137-145); TOTAL PROTEIN 5.1 g/dL (6.3-8.2)
[2018-07-17] MEDS: GABAPENTIN 100 MG CAPSULE PEG SCH ×3 (06:38→22:28)
--- NOTE | 2018-07-17 07:35 | RADIOLOGY REPORT (SQ) ---
EXAM DESCRIPTION: XR CHEST 1 VIEW COMPLETED DATE/TME: 07/17/2018 06:00 CLINICAL HISTORY: 68 years Female, intubated COMPARISON: One day prior. NUMBER OF VIEWS/TECHNIQUE: 1/AP FINDINGS: Moderate mixed interstitial and airspace opacity includes a moderate left lower retrocardiac consolidate. Interval worsening. Small hazy opacity-effusion of the right lower hemithorax. Tip of an endotracheal tube is 1.7 cm from the perlita. Recommend 3.3 cm retraction of the endotracheal tube. Normal cardiac silhouette. Atherosclerotic vascular disease. No pneumothorax. Stable bony thorax. IMPRESSION: 1. Tip of an endotracheal tube is 1.7 cm from the perlita. Recommend 3.3 cm retraction of the endotracheal tube. 2. Moderate mixed interstitial and airspace opacity includes a moderate left lower retrocardiac consolidate. Interval worsening.
[2018-07-17] MEDS: ACETYLCYSTEINE 20% SOLN 800 MG/4 ML VIAL.NEB IH SCH ×2 (07:43→20:38)
[2018-07-17] MEDS ORDERED: BUMETANIDE INJ/PF 1 MG/4 ML SDV IV PRN (10:00)
[2018-07-17] MEDS: ENALAPRILAT DIHYDRATE INJ/PF 1.25 MG/1 ML SDV IV SCH ×2 (11:45→17:50)
[2018-07-17] MEDS: LEVOFLOXACIN 500 MG/D5W RTU 500 MG/100 ML RTUPB IV SCH (11:47)
[2018-07-17] MEDS: ALBUMIN HUMAN 12.5 GM/50 ML RTUINJ IV SCH ×2 (11:48→14:26)
[2018-07-17] MEDS: LUBIPROSTONE 24 MCG CAPSULE PO SCH (11:52)
[2018-07-17] MEDS: PANTOPRAZOLE SODIUM 40 MG VIAL IV SCH (11:53)
[2018-07-17] MEDS: MIDAZOLAM HCL 50 MG/100 ML RTUINJ IV PRN (13:05)
--- NOTE | 2018-07-17 13:20 | PDOC PROGRESS REPORT ---
Subjective Progress Note for:: 07/17/18 Subjective:: Patient's son is at the bedside. This is a well-developed but pale 68-year-old female intubated and sedated. Preparations for upper endoscopy underway. Reason For Visit: UTI ,DECUB SEPSIS, UREMIA Acute hypoxic respiratory failure Gastrointestinal bleed Physical Exam Vital Signs: Temp Pulse Resp BP Pulse Ox 96.3 F L 70 12 182/79 H 99 07/17/18 12:00 07/17/18 12:00 07/17/18 12:00 07/17/18 12:00 07/17/18 12:10 Intake & Output 07/16/18 07/17/18 07/18/18 06:59 06:59 06:59 Intake Total 2310 2105 Output Total 905 1960 150 Balance 1405 145 -150 Weight 66.8 kg 66 kg General appearance: PRESENT: no acute distress, morbidly obese, well-developed, other - Intubated and sedated Head exam: PRESENT: atraumatic, normocephalic Mouth exam: PRESENT: other - Endotracheal tube in place Respiratory exam: PRESENT: clear to auscultation nicole - Anteriorly, symmetrical. ABSENT: rales, rhonchi, wheezes Cardiovascular exam: PRESENT: RRR, +S1, +S2 GI/Abdominal exam: PRESENT: normal bowel sounds, soft, other - PEG tube in place. ABSENT: distended, tenderness Rectal exam: PRESENT: other - Fecal collection system in place. Brown stool. Gentrourinary exam: PRESENT: indwelling catheter Extremities exam: PRESENT: +1 edema - Bilateral hands Musculoskeletal exam: PRESENT: other - Bilateral below-knee amputations. ABSENT: ambulatory Neurological exam: PRESENT: other - Intubated and sedated. ABSENT: awake Psychiatric exam: PRESENT: other - Intubated and sedated Results Laboratory Results: 07/17/18 04:58 07/17/18 04:58 07/16/18 07/17/18 07/17/18 22:48 03:55 04:58 WBC 9.8 RBC 3.03 L Hgb 8.7 L Hct 26.1 L MCV 86 MCH 28.6 MCHC 33.3 RDW 15.4 H Plt Count 274 Seg Neutrophils % Lymphocytes % Monocytes % Eosinophils % Basophils % Absolute Neutrophils Absolute Lymphocytes Absolute Monocytes Absolute Eosinophils Absolute Basophils Carbonic Acid 0.95 L HCO3/H2CO3 Ratio 20:1 ABG pH 7.40 ABG pCO2 31.4 L ABG pO2 69.3 L ABG HCO3 19.2 L ABG O2 Saturation 94.2 ABG Base Excess -4.3 FiO2 30% Sodium 140.6 Potassium 3.4 L Chloride 111 H Carbon Dioxide 19 L Anion Gap 11 BUN 66 H Creatinine 2.23 H Est GFR ( Amer) 26 L Est GFR (Non-Af Amer) 22 L Glucose 121 H Calcium 8.9 Magnesium 2.7 H Total Bilirubin 0.6 AST 19 ALT 24 Alkaline Phosphatase 84 Total Protein 5.1 L Albumin 2.3 L 07/17/18 04:58 WBC 8.9 RBC 2.89 L Hgb 8.1 L Hct 25.0 L MCV 86 MCH 28.1 MCHC 32.6 RDW 16.1 H Plt Count 243 Seg Neutrophils % 70.3 Lymphocytes % 12.4 L Monocytes % 8.9 Eosinophils % 7.9 H Basophils % 0.5 Absolute Neutrophils 6.2 Absolute Lymphocytes 1.1 Absolute Monocytes 0.8 Absolute Eosinophils 0.7 H Absolute Basophils 0.0 Carbonic Acid HCO3/H2CO3 Ratio ABG pH ABG pCO2 ABG pO2 ABG HCO3 ABG O2 Saturation ABG Base Excess FiO2 Sodium Potassium Chloride Carbon Dioxide Anion Gap BUN Creatinine Est GFR ( Amer) Est GFR (Non-Af Amer) Glucose Calcium Magnesium Total Bilirubin AST ALT Alkaline Phosphatase Total Protein Albumin 06/28/18 06/28/18 07/03/18 15:30 15:30 20:05 Creatine Kinase < 20 L 76 CK-MB (CK-2) Troponin I < 0.012 NT-Pro-B Natriuret Pep 07/03/18 07/04/18 07/04/18 20:05 02:38 02:38 Creatine Kinase 83 CK-MB (CK-2) 4.98 H 6.58 H Troponin I 0.078 0.158 NT-Pro-B Natriuret Pep 07/04/18 07/04/18 07/16/18 09:44 09:44 03:41 Creatine Kinase 43 CK-MB (CK-2) 5.94 H Troponin I 0.273 NT-Pro-B Natriuret Pep 6580 H Impressions: Abdomen/Pelvis CT 07/01/18 00:00 IMPRESSION: 1. Moderate constipation. 2. Left exophytic solid renal lesion has increased in size and now measures 2.1 cm. This could represent complex cyst although a solid mass cannot be excluded. 3. Decubitus ulcer just right of midline overlying the sacrum. Inflammation extends to the level of the lower sacrum and coccyx. Bone involvement cannot be excluded. 4. Subcutaneous edema. Lung Scan-VQ NM 07/02/18 13:06 IMPRESSION: Very limited anterior and anterior oblique planar perfusion images on bed bound patient unable to tolerate flat positioning and unable to perform ventilation imaging. Generally nondiagnostic examination without obvious perfusion defect. Recommend CT pulmonary angiogram to further evaluate if there is persistent suspicion for pulmonary embolism. Head CT 07/07/18 00:00 IMPRESSION: No CT evidence of acute large territory ischemic change. Sphenoid sinusitis. Right mastoid air cell fluid. EVIDENCE OF ACUTE STROKE: NO. Chest Ultrasound 07/13/18 00:00 IMPRESSION: Limited sonographic evaluation demonstrates mild right pleural effusion with associated consolidated lung, likely atelectasis KUB X-Ray 07/16/18 00:00 IMPRESSION: NO RADIOGRAPHIC EVIDENCE FOR ACUTE ABDOMINAL DISEASE. Chest X-Ray 07/17/18 06:00 IMPRESSION: 1. Tip of an endotracheal tube is 1.7 cm from the perlita. Recommend 3.3 cm retraction of the endotracheal tube. 2. Moderate mixed interstitial and airspace opacity includes a moderate left lower retrocardiac consolidate. Interval worsening. Assessment and Plan - Diagnosis (1) Acute hypoxemic respiratory failure Is this a current diagnosis for this admission?: Yes Plan: Mild improvement. X-ray remains unchanged. Multifactorial. Likely due to recurrent aspiration pneumonia/pneumonitis due to being unable to clear her secretion possibly a sequela of her CVA as will as MRSA pneumonia. 06/25/2018 tracheal aspirate positive for MRSA. 06/28/2018 urine culture positive for for MRSA. 07/13/2018 bronchial washing 1/3 growing yeast, 2/3 still pending. 07/16/2018: SBP 456586, T-max 98.1, pulse 70s, RR 12 , SPO2 96% 5 to 30% mechanically ventilated, SIMV plus BS, TV 450, PEEP 5. MV 5.4. ABG: pH 7.40, PCO2 36.5, PO2 78.2, FiO2 30% 07/15/2018. SBP 139-151, T-max 98.4, pulse 70s, story rate 12 intubated, SPO2 97% FiO2 30%. SIMV plus BS, rates it 12, volume 450, PEEP 5. ABG: pH 7.41, PCO2 32.2, PO2 74.7, FiO2 35%. 07/14/2018: SBP 137-146, T-max 98.4, pulse 70s, SPO2 98% on mechanical ve ntilation, FiO2 35% SIMV, tidal volume 450, PEEP 5. ABG: pH 7.47, PCO2 30.2, PO2 69.9 up from 49.9, 5 to 40% down from 60%. Status post bronchoscopy by pulmonary 07/14/2018. Repeat x-ray shows worsening of the right lower lobe effusion. Continue ventilator support empiric IV antibiotics. ABG and chest x-ray tomorrow. 07/17/2018-please also see pulmonology note. As noted there is slight worsening of the pleural effusion and consolidation process. The patient is still on mechanical ventilation. She is sedated. With upper endoscopy planned for today weaning is very unlikely. Also with consideration for worsening infiltrate it is likely that there will be weaning today. Pulmonology continues to follow as well. Appreciate their input. (2) CKD (chronic kidney disease) stage 4, GFR 15-29 ml/min Is this a current diagnosis for this admission?: Yes Plan: At baseline. 07/16/2018: WBC 11.4, hemoglobin 8.6, platelets 229, pH 7.40, PCO2 36.5, PO2 78.2, FiO2 30% mechanical ventilation. Sodium 139.5, potassium 3.6, bicarb 19, creatinine 2.05, Mg 2.8. 07/15/2018. WBC 13.0, hemoglobin 8.9, platelets 238, sodium 140, potassium 3.8, bicarb 21, BUN 72, creatinine 2.07 down from 2.14, FSG 127, POC glucose 130-141, magnesium 2.9 07/14/2018. WBC 16.0, hemoglobin 9.0, platelet 225, sodium 141, potassium 3.7, bicarb 21, creatinine 2.14 up from 2.04, Volume status and electrolytes. Replace as needed. 07/17/2018-GFR is only 22. Continue to follow. As noted above IV enalapril started and intermittent diuresis will be undertaken. Please also see nephrology note. (3) Pleural effusion Is this a current diagnosis for this admission?: Yes Plan: Chest x-ray remains unchanged. Recurrent. Likely due to recurrent aspiration as patient is not able to clear her secretions due to CVA 07/01/2018. 2D echo negative for any vegetation, left ventricular ejection fraction 60%. 07/13/2018. Status post bronchoscopy on with removal of mucous plug. Moderate expansion and improvement of oxygenation and lungs post bronchoscopy fortunately repeat chest x-ray the following day shows re-expansion of the right-sided pleural effusion. Chest x-ray tomorrow. Continue ventilator support. 07/15/2018. Had a conversation with Dr. Escobar orthopedic physician who is also following patient, we discussed patient's prognosis, and he suggested that I talked to his son who has power of civil litigation attorney, as patient is not improving and prognosis is not very optimistic at this point. I had a lengthy conversation with her son and updated him about prognosis and possible routes to take. either place a trach and transferring her to LTAC or making her [employer] as patient is not i mproving and her prognosis does not seem any better. Her son stated he needs to discuss it with her sister and will update us afterwards. Meanwhile he wants her full code. ' 07/17/2018-still with small pleural effusion. Mixed interstitial infiltrate versus fluid worsening by x-ray report. Continue antibiotics at this time. Because of low albumin I will give IV albumin and follow that with a dose of Bumex to see if I can mobilize some fluid. Blood pressure is high and so will be tolerated. The only question is how much urine output can she generate with her underlying kidney disease. We will continue to monitor intake and output closely. (4) Sacral decubitus ulcer, stage III Is this a current diagnosis for this admission?: No Plan: Patient has sacral decubitus stage III. No active discharge or drainage will co llection. Still looks edematous necrotic tissue, no noticeable collection or drainage. Was evaluated by surgery and at this point no drainage she will collection was observed. 07/01/2018. CT abdomen and pelvis. Moderate constipation. Decubitus ulcer just right of midline overlying the sacrum. Inflammation extends to the level of the lower sacrum and coccyx. Bone involvement cannot be excl uded. 07/17/2018-did not examine today as patient is preparing for upper endoscopy. (5) Diabetes mellitus type 2 in obese Is this a current diagnosis for this admission?: No Plan: Continue diabetic diet, Accu-Chek, sliding scale insulin, long-acting insulin, pre-meal insulin, adjust dosage as needed. 07/17/2018-with excellent glucose control. Accu-Cheks reveal glucose less than 200 consistently. Continue sliding scale coverage at this time. (6) Hypertension Qualifiers: Hypertension type: essential hypertension Qualified Code(s): I10 - Essential (primary) hypertension Is this a current diagnosis for this admission?: No Plan: Controlled. 07/16/2018: SBP 411661, T-max 98.1, pulse 70s, respiratory rate 12 07/15/2018. SBP 139-151, T-max 98.4, pulse 70s Continue Amlodipine 10 mg p.o. daily, clonidine 0.3 mg TD every 24 hours, labetalol 100 mg p.o. twice daily. PRN labetalol. 07/17/2018-the patient has an allergy to hydralazine. This is been discontinued. According to her son this drops her blood pressure precipitously. I have initiated scheduled IV enalapril. It is low dose so it should not adversely affect her kidneys however we will continue to monitor. Consider changing to m etoprolol through the PEG tube. Await upper endoscopy before medication changes. (7) Hypokalemia Is this a current diagnosis for this admission?: Yes Plan: 07/17/2018-patient serum potassium is low today. I will add low-dose potassium through the PEG tube. Continue to monitor serum potassium. (8) Anemia Qualifiers: Anemia type: due to chronic kidney disease Chronic kidney disease stage: stage 4 (severe) Qualified Code(s): N18.4 - Chronic kidney disease, stage 4 (severe); D63.1 - Anemia in chronic kidney disease Is this a current diagnosis for this admission?: Yes Plan: 07/17/2018-patient has chronic anemia related to her chronic kidney disease however a new gastrointestinal bleed has been discovered. She did receive 2 units of packed red blood cells early during this admission. If her hemoglobin continues to decline she would be a candidate for additional packed red blood cells. (9) Gastrointestinal bleed Qualifiers: Gastritis type: unspecified gastritis Is this a current diagnosis for this admission?: Yes Plan: 07/17/2018-bright red blood was noted in the PEG tube aspirate. Her hemoglobin has been slowly trickling down. Today it was 8.1 and this is down from 9.8. The blood losses on top of her chronic anemia from chronic kidney disease. Continue to monitor hemoglobin. Surgery is performing upper endoscopy today. - Time Time Spent with patient: 35 or more minutes - Plan Summary Plan Summary: He did have a discussion with the patient's son. Explained the capabilities of an LTAC. He is considering a change to comfort measures if the LTAC does not feel the patient is appropriate. With her multiple comorbidities and underlying history of stroke her prognosis is poor. Change to comfort measures would not be inappropriate at this time. Await evaluation by the LTAC tomorrow.
[2018-07-17] MEDS ORDERED: ENALAPRILAT DIHYDRATE INJ/PF 2.5 MG/2 ML SDV IV ONE ×2 (14:00)
--- NOTE | 2018-07-17 14:21 | Operative Report ---
Nonrecallable Operative Report DATE OF SURGERY: 07/17/18 PREOPERATIVE DIAGNOSIS: Acute GI bleed; respiratory failure; status post PEG tube placement POSTOPERATIVE DIAGNOSIS: Same with diffuse proximal gastritis with punctate, active arterial oozing OPERATION: 1. Esophagogastroduodenoscopy. 2. Mucosal injection of 0.75 mg of epinephrine at multiple sites proximal greater curvature the stomach. 3. Irrigation and aspiration of clot from stomach SURGEON: REDDY GOODEN ANESTHESIA: Moderate Sedation TISSUE REMOVED OR ALTERED: Clot from stomach COMPLICATIONS: None ESTIMATED BLOOD LOSS: See below INTRAOPERATIVE FINDINGS: See below PROCEDURE: The patient was left in a semirecumbent position, intubated in intensive care unit 12, with Versed sedation, and Vasotec IV for antihypertensive management. Consent was provided by the patient's son. Appropriate equipment set up for upper endoscopy. Surgical plan surgical timeout were conducted. Flexible upper endoscope was advanced to the patient's oropharynx without difficulty through the esophagus and then into the stomach. There was a massive amount of annular clot in the body of the stomach. The PEG tube was in appropriate position. It was photographed. We spent about 25 minutes irrigating aspirating and suctioning out as much if not nearly all of the granular clot. There remained a well denies clot mass in the proximal stomach. Adjacent to it were multiple punctate areas of arterial oozing. Photos were taken. Did advance the scope at this point through the pylorus which appeared grossly normal into the first and second portions of the duodenum which were normal as well there was no active bleeding or clot in the small bowel. We returned to the greater curvature, proximal stomach, and used the Maldonado net to retrieve the organized firm clot mass. Once this was removed by removing the endoscope and then reinserting it, we are able to see multiple small punctate areas of arterial oozing. We now injected approximately 0.75 mg of epinephrine at 5-7 different sites along the proximal greater curvature the stomach. The bleeding appeared to. We irrigated out the proximal stomach again and felt that we had successfully stabilized the acute problem. The scope was retroflexed in the stomach, and no other acute bleeding identified. The scope was brought back to the GE junction, and the distal esophagus was washed out. The scope was withdrawn to the patient's oropharynx. She tolerated procedure well Impression: Acute GI bleed secondary to multiple punctate sites of gastritis, status post injection therapy with small, interim results.; no ulcer. Recommendations: 1. Continue medical therapy per hospitalist service including proton pump inhibitors; hopefully if bleeding stopped, tube feeds can be resumed 2. Discussed the above with patient's son
[2018-07-17] MEDS: CHOLECALCIFEROL (D3) 1,000 UNIT TABLET PO SCH (14:22)
[2018-07-17] MEDS: CETIRIZINE 5 MG TABLET PEG SCH (14:22)
[2018-07-17] MEDS: DOCUSATE SODIUM 100 MG/10 ML UDC PEG SCH (14:22)
[2018-07-17] MEDS: CLOPIDOGREL BISULFATE 75 MG TABLET PEG SCH (14:22)
[2018-07-17] MEDS: AMLODIPINE BESYLATE 10 MG TABLET PEG SCH (14:22)
[2018-07-17] MEDS: LABETALOL HCL 200 MG TABLET PEG SCH ×2 (14:22→22:28)
[2018-07-17] MEDS: ASPIRIN 81 MG TABLET, CHEWABLE PEG SCH ×2 (14:23→21:18)
[2018-07-17 14:52] LABS: HEMATOCRIT 23.4 % (36.0-47.0); MEAN CORPUSCULAR HEMOGLOBIN 28.5 pg (27.0-33.4); MEAN CORPUSCULAR HGB CONC 33.2 g/dL (32.0-36.0); MEAN CORPUSCULAR VOLUME 86 fl (80-97); PLATELET COUNT 240 10^3/uL (150-450); RED BLOOD COUNT 2.73 10^6/uL (3.72-5.28); RED CELL DISTRIBUTION WIDTH 15.7 % (11.5-14.0); WHITE BLOOD COUNT 7.9 10^3/uL (4.0-10.5)
[2018-07-17 14:56] LABS: HEMOGLOBIN 7.8 g/dL (12.0-15.5)
[2018-07-17 15:11] LABS: ANION GAP 11 (5-19); BLOOD UREA NITROGEN 63 mg/dL (7-20); CALCIUM 8.8 mg/dL (8.4-10.2); CARBON DIOXIDE 18 mmol/L (22-30); CHLORIDE 110 mmol/L (98-107); GLUCOSE 142 mg/dL (75-110); POTASSIUM 3.4 mmol/L (3.6-5.0); SODIUM 138.8 mmol/L (137-145)
[2018-07-17] MEDS: ATORVASTATIN CALCIUM 40 MG TABLET PEG SCH (22:28)
[2018-07-18] MEDS: IPRATROPIUM/ALBUTEROL 0.5-2.5 MG/3 ML AMPUL NEB SCH ×4 (02:30→20:49)
[2018-07-18] MEDS: INSULIN LISPRO 100 UNIT/ML 3 ML VIAL SUBCUT SCH ×5 (02:50→23:43)
[2018-07-18] MEDS: ENALAPRILAT DIHYDRATE INJ/PF 1.25 MG/1 ML SDV IV SCH ×5 (02:50→23:32)
[2018-07-18 02:56] LABS: ABSOLUTE BASOPHILS # (AUTO) 0.1 10^3/uL (0.0-0.2); ABSOLUTE EOSINOPHILS # (AUTO) 0.6 10^3/uL (0.0-0.6); ABSOLUTE LYMPHOCYTES (AUTO) 1.3 10^3/uL (0.5-4.7); ABSOLUTE MONOCYTES (AUTO) 0.8 10^3/uL (0.1-1.4); BASOPHILS % (AUTO) 0.8 % (0-2); EOSINOPHILS % (AUTO) 8.2 % (0-6); HEMATOCRIT 24.6 % (36.0-47.0); LYMPHOCYTES % (AUTO) 16.7 % (13-45); MEAN CORPUSCULAR HEMOGLOBIN 28.1 pg (27.0-33.4); MEAN CORPUSCULAR HGB CONC 32.6 g/dL (32.0-36.0); MEAN CORPUSCULAR VOLUME 86 fl (80-97); MONOCYTES % (AUTO) 10.1 % (3-13); PLATELET COUNT 248 10^3/uL (150-450); RED BLOOD COUNT 2.85 10^6/uL (3.72-5.28); RED CELL DISTRIBUTION WIDTH 15.5 % (11.5-14.0); SEGMENTED NEUTROPHILS % (AUTO) 64.2 % (42-78); TOTAL CELLS COUNTED % (AUTO) 100 %; WHITE BLOOD COUNT 7.9 10^3/uL (4.0-10.5)
[2018-07-18] MEDS: PANTOPRAZOLE SODIUM 40 MG VIAL IV PRN (02:58)
[2018-07-18 03:14] LABS: ALANINE AMINOTRANSFERASE 33 U/L (9-52); ALBUMIN 2.4 g/dL (3.5-5.0); ALKALINE PHOSPHATASE 78 U/L (38-126); ANION GAP 9 (5-19); ASPARTATE AMINO TRANSFERASE 10 U/L (14-36); BILIRUBIN,DIRECT 0.4 mg/dL (0.0-0.4); BILIRUBIN,TOTAL 0.6 mg/dL (0.2-1.3); BLOOD UREA NITROGEN 59 mg/dL (7-20); CALCIUM 8.9 mg/dL (8.4-10.2); CARBON DIOXIDE 20 mmol/L (22-30); CHLORIDE 109 mmol/L (98-107); GLUCOSE 87 mg/dL (75-110); POTASSIUM 3.3 mmol/L (3.6-5.0); SODIUM 138.1 mmol/L (137-145); TOTAL PROTEIN 4.9 g/dL (6.3-8.2)
[2018-07-18] MEDS: MIDAZOLAM HCL 50 MG/100 ML RTUINJ IV PRN (03:39)
[2018-07-18 05:38] LABS: ARTERIAL BLOOD BASE EXCESS -4.3 mmol/L; ARTERIAL BLOOD H2CO3 0.93 mmol/L (1.05-1.35); ARTERIAL BLOOD HCO3 19.6 mmol/L (20-24); ARTERIAL BLOOD O2 SATURATION 95.7 % (94-98); ARTERIAL BLOOD PCO2 30.8 mmHg (35-45); ARTERIAL BLOOD PH 7.42 (7.35-7.45); ARTERIAL BLOOD PO2 76.5 mmHg (80-100); ARTERIAL BLOOD TOTAL CO2 20.6 mmol/L (21-25)
[2018-07-18 05:42] LABS: ARTERIAL BLOOD FIO2 30%
[2018-07-18] MEDS: GABAPENTIN 100 MG CAPSULE PEG SCH ×3 (05:59→21:14)
[2018-07-18] MEDS: POTASSIUM CHLORIDE 20 MEQ/50 ML RTU IV SCH ×2 (06:03→07:39)
--- NOTE | 2018-07-18 06:25 | RADIOLOGY REPORT (SQ) ---
EXAM DESCRIPTION: XR CHEST 1 VIEW COMPLETED DATE/TME: 07/18/2018 06:00 CLINICAL HISTORY: 68 years Female, resp. failure COMPARISON: One day prior. NUMBER OF VIEWS/TECHNIQUE: 1/AP FINDINGS: Moderate mixed airspace and interstitial opacities. Bilateral lower thoracic opacity/effusion. Adequate appearing endotracheal tube. Atherosclerotic vascular disease. Normal cardiac silhouette size. No pneumothorax. Stable bony thorax. IMPRESSION: No significant change.
[2018-07-18] MEDS: ACETYLCYSTEINE 20% SOLN 800 MG/4 ML VIAL.NEB IH SCH ×2 (08:19→20:49)
[2018-07-18] MEDS ORDERED: VANCOMYCIN HCL 500 MG in DEXTROSE 5%-WATER 100 ML IV SCH (10:00)
[2018-07-18] MEDS ORDERED: METOCLOPRAMIDE HCL INJ/PF 10 MG/2 ML SDV ONE (10:05)
[2018-07-18] MEDS: METOCLOPRAMIDE HCL INJ/PF 10 MG/2 ML SDV IV SCH ×2 (10:13→17:15)
[2018-07-18] MEDS: LUBIPROSTONE 24 MCG CAPSULE PO SCH (10:14)
[2018-07-18] MEDS: CLOPIDOGREL BISULFATE 75 MG TABLET PEG SCH (10:14)
[2018-07-18] MEDS: DOCUSATE SODIUM 100 MG/10 ML UDC PEG SCH (10:14)
[2018-07-18] MEDS: CETIRIZINE 5 MG TABLET PEG SCH (10:14)
[2018-07-18] MEDS: CHOLECALCIFEROL (D3) 1,000 UNIT TABLET PO SCH (10:14)
[2018-07-18] MEDS: LABETALOL HCL 200 MG TABLET PEG SCH ×2 (10:14→21:14)
[2018-07-18] MEDS: AMLODIPINE BESYLATE 10 MG TABLET PEG SCH (10:15)
[2018-07-18] MEDS: ASPIRIN 81 MG TABLET, CHEWABLE PEG SCH ×2 (10:15→21:19)
[2018-07-18] MEDS: PANTOPRAZOLE SODIUM 40 MG VIAL IV SCH ×2 (10:20→21:12)
[2018-07-18] MEDS ORDERED: ACETAMINOPHEN SOLN 325 MG/10.15 ML UDCUP PEG PRN (10:48)
--- NOTE | 2018-07-18 12:08 | PDOC PROGRESS REPORT ---
Subjective Progress Note for:: 07/15/18 Subjective:: Intubated and sedated Reason For Visit: UTI ,DECUB SEPSIS, UREMIA Physical Exam Vital Signs: Temp Pulse Resp BP Pulse Ox 97.2 F 71 12 139/69 H 97 07/15/18 08:00 07/15/18 09:03 07/15/18 08:05 07/15/18 08:00 07/15/18 08:05 Intake & Output 07/14/18 07/15/18 07/16/18 06:59 06:59 06:59 Intake Total 398 1115 Output Total 505 510 20 Balance -107 605 -20 Weight 65.5 kg 66.8 kg General appearance: PRESENT: no acute distress, disheveled, obese. ABSENT: cooperative Head exam: PRESENT: atraumatic, normocephalic Eye exam: PRESENT: conjunctiva pale. ABSENT: nystagmus Mouth exam: PRESENT: dry mucosa, neck supple, tongue midline, other - ET tube Respiratory exam: PRESENT: decreased breath sounds, prolonged expiratory phas, rales, rhonchi, symmetrical, unlabored. ABSENT: retraction, stridor, tachypnea Cardiovascular exam: PRESENT: RRR, +S1, +S2 Pulses: PRESENT: normal radial pulses GI/Abdominal exam: PRESENT: soft - PEG tube, other - PEG feeding tube Gentrourinary exam: PRESENT: indwelling catheter Extremities exam: PRESENT: other - biLateral AKA. ABSENT: calf tenderness, clu bbing Musculoskeletal exam: ABSENT: ambulatory, deformity, dislocation Neurological exam: ABSENT: awake Skin exam: PRESENT: dry, warm, other - sacral decubitus Results Laboratory Results: 07/15/18 03:50 07/15/18 03:50 07/15/18 07/15/18 07/15/18 03:50 03:50 05:14 WBC 13.0 H RBC 3.08 L Hgb 8.9 L Hct 26.6 L MCV 86 MCH 28.8 MCHC 33.4 RDW 15.6 H Plt Count 238 Seg Neutrophils % 76.1 Lymphocytes % 10.0 L Monocytes % 8.6 Eosinophils % 4.9 Basophils % 0.4 Absolute Neutrophils 9.9 H Absolute Lymphocytes 1.3 Absolute Monocytes 1.1 Absolute Eosinophils 0.6 Absolute Basophils 0.1 Carbonic Acid 0.97 L HCO3/H2CO3 Ratio 20:1 ABG pH 7.41 ABG pCO2 32.2 L ABG pO2 74.7 L ABG HCO3 19.9 L ABG O2 Saturation 95.3 ABG Base Excess -4.1 FiO2 35% Sodium 140.0 Potassium 3.8 Chloride 109 H Carbon Dioxide 21 L Anion Gap 10 BUN 72 H Creatinine 2.14 H Est GFR ( Amer) 28 L Est GFR (Non-Af Amer) 23 L Glucose 127 H Calcium 8.8 Magnesium 2.9 H Total Bilirubin 0.5 AST 11 L ALT 27 Alkaline Phosphatase 69 Total Protein 4.5 L Albumin 2.2 L 07/13/18 11:12 Bronchial Washings Gram Stain - Final 07/13/18 11:12 Bronchial Washings Bronchial Washings Culture - Final Yeast, Not [place] Albicans Normal [place] Absent 06/28/18 06/28/18 07/03/18 15:30 15:30 20:05 Creatine Kinase < 20 L 76 CK-MB (CK-2) Troponin I < 0.012 07/03/18 07/04/18 07/04/18 20:05 02:38 02:38 Creatine Kinase 83 CK-MB (CK-2) 4.98 H 6.58 H Troponin I 0.078 0.158 07/04/18 07/04/18 09:44 09:44 Creatine Kinase 43 CK-MB (CK-2) 5.94 H Troponin I 0.273 Impressions: Abdomen/Pelvis CT 07/01/18 00:00 IMPRESSION: 1. Moderate constipation. 2. Left exophytic solid renal lesion has increased in size and now measures 2.1 cm. This could represent complex cyst although a solid mass cannot be excluded. 3. Decubitus ulcer just right of midline overlying the sacrum. Inflammation extends to the level of the lower sacrum and coccyx. Bone involvement cannot be excluded. 4. Subcutaneous edema. Lung Scan-VQ NM 07/02/18 13:06 IMPRESSION: Very limited anterior and anterior oblique planar perfusion images on bed bound patient unable to tolerate flat positioning and unable to perform v entilation imaging. Generally nondiagnostic examination without obvious perfusion defect. Recommend CT pulmonary angiogram to further evaluate if there is persistent suspicion for pulmonary embolism. Head CT 07/07/18 00:00 IMPRESSION: No CT evidence of acute large territory ischemic change. Sphenoid sinusitis. Right mastoid air cell fluid. EVIDENCE OF ACUTE STROKE: NO. KUB X-Ray 07/08/18 00:00 IMPRESSION: NO RADIOGRAPHIC EVIDENCE FOR ACUTE ABDOMINAL DISEASE. Chest Ultrasound 07/13/18 00:00 IMPRESSION: Limited sonographic evaluation demonstrates mild right pleural effusion with associated consolidated lung, likely atelectasis Chest X-Ray 07/15/18 06:00 IMPRESSION: Moderate opacity-effusion of the right lower hemithorax. Small patchy opacity of the left lower lung. Moderate interstitial markings. Interval worsening. Assessment & Plan - Diagnosis (1) Sepsis Is this a current diagnosis for this admission?: Yes Plan: mrsa urine sputum (2) Acute and chronic respiratory failure with hypoxia Is this a current diagnosis for this admission?: Yes Plan: unchanged (3) CKD (chronic kidney disease) stage 4, GFR 15-29 ml/min Is this a current diagnosis for this admission?: Yes Plan: Stable (4) Sacral decubitus ulcer, stage III Is this a current diagnosis for this admission?: Yes Plan: unChanged - Time Total Critical Time (Minutes): 45
--- NOTE | 2018-07-18 12:10 | PDOC PROGRESS REPORT ---
Subjective Progress Note for:: 07/16/18 Subjective:: Intubated and sedated Reason For Visit: UTI ,DECUB SEPSIS, UREMIA Physical Exam Vital Signs: Temp Pulse Resp BP Pulse Ox 98.4 F 71 12 158/67 H 99 07/18/18 04:00 07/18/18 08:20 07/18/18 08:20 07/18/18 05:46 07/18/18 08:20 Intake & Output 07/17/18 07/18/18 07/19/18 06:59 06:59 06:59 Intake Total 2105 1379 40 Output Total 1960 1160 Balance 145 219 40 Weight 66 kg 66.1 kg General appearance: PRESENT: disheveled, morbidly obese. ABSENT: no acute distress, cooperative Head exam: PRESENT: atraumatic, normocephalic Eye exam: PRESENT: conjunctiva pale. ABSENT: EOMI, nystagmus Mouth exam: PRESENT: dry mucosa, neck supple, tongue midline, other - ET tube Neck exam: ABSENT: carotid bruit, full ROM, JVD, lymphadenopathy, meningismus, tenderness, thyromegaly, tracheal deviation, tracheostomy, other Respiratory exam: PRESENT: decreased breath sounds, prolonged expiratory phas, rales, rhonchi, unlabored, wheezes. ABSENT: retraction, stridor Cardiovascular exam: PRESENT: RRR, +S1, +S2 Pulses: PRESENT: normal radial pulses GI/Abdominal exam: PRESENT: soft, other - Feeding tube Extremities exam: PRESENT: other - Bilateral AKA Musculoskeletal exam: ABSENT: ambulatory, deformity, dislocation Neurological exam: ABSENT: awake Skin exam: PRESENT: dry, warm Results Laboratory Results: 07/18/18 02:45 07/18/18 02:45 07/17/18 07/17/18 07/18/18 14:40 14:40 02:45 WBC 7.9 RBC 2.73 L Hgb 7.8 L Hct 23.4 L MCV 86 MCH 28.5 MCHC 33.2 RDW 15.7 H Plt Count 240 Seg Neutrophils % Lymphocytes % Monocytes % Eosinophils % Basophils % Absolute Neutrophils Absolute Lymphocytes Absolute Monocytes Absolute Eosinophils Absolute Basophils Carbonic Acid HCO3/H2CO3 Ratio ABG pH ABG pCO2 ABG pO2 ABG HCO3 ABG O2 Saturation ABG Base Excess FiO2 Sodium 138.8 Potassium 3.4 L Chloride 110 H Carbon Dioxide 18 L Anion Gap 11 BUN 63 H Creatinine 2.09 H Est GFR ( Amer) 28 L Est GFR (Non-Af Amer) 23 L Glucose 142 H Calcium 8.8 Magnesium 2.5 H Total Bilirubin AST ALT Alkaline Phosphatase Total Protein Albumin 07/18/18 07/18/18 07/18/18 02:45 02:45 05:15 WBC 7.9 RBC 2.85 L Hgb 8.0 L Hct 24.6 L MCV 86 MCH 28.1 MCHC 32.6 RDW 15.5 H Plt Count 248 Seg Neutrophils % 64.2 Lymphocytes % 16.7 Monocytes % 10.1 Eosinophils % 8.2 H Basophils % 0.8 Absolute Neutrophils 5.0 Absolute Lymphocytes 1.3 Absolute Monocytes 0.8 Absolute Eosinophils 0.6 Absolute Basophils 0.1 Carbonic Acid 0.93 L HCO3/H2CO3 Ratio 21:1 ABG pH 7.42 ABG pCO2 30.8 L ABG pO2 76.5 L ABG HCO3 19.6 L ABG O2 Saturation 95.7 ABG Base Excess -4.3 FiO2 30% Sodium 138.1 Potassium 3.3 L Chloride 109 H Carbon Dioxide 20 L Anion Gap 9 BUN 59 H Creatinine 2.18 H Est GFR ( Amer) 27 L Est GFR (Non-Af Amer) 22 L Glucose 87 Calcium 8.9 Magnesium Total Bilirubin 0.6 AST 10 L ALT 33 Alkaline Phosphatase 78 Total Protein 4.9 L Albumin 2.4 L 06/28/18 06/28/18 07/03/18 15:30 15:30 20:05 Creatine Kinase < 20 L 76 CK-MB (CK-2) Troponin I < 0.012 NT-Pro-B Natriuret Pep 07/03/18 07/04/18 07/04/18 20:05 02:38 02:38 Creatine Kinase 83 CK-MB (CK-2) 4.98 H 6.58 H Troponin I 0.078 0.158 NT-Pro-B Natriuret Pep 07/04/18 07/04/18 07/16/18 09:44 09:44 03:41 Creatine Kinase 43 CK-MB (CK-2) 5.94 H Troponin I 0.273 NT-Pro-B Natriuret Pep 6580 H Impressions: Abdomen/Pelvis CT 07/01/18 00:00 IMPRESSION: 1. Moderate constipation. 2. Left exophytic solid renal lesion has increased in size and now measures 2.1 cm. This could represent complex cyst although a solid mass cannot be excluded. 3. Decubitus ulcer just right of midline overlying the sacrum. Inflammation extends to the level of the lower sacrum and coccyx. Bone involvement cannot be excluded. 4. Subcutaneous edema. Lung Scan-VQ NM 07/02/18 13:06 IMPRESSION: Very limited anterior and anterior oblique planar perfusion images on bed bound patient unable to tolerate flat positioning and unable to perform ventilation imaging. Generally nondiagnostic examination without obvious perfusion defect. Recommend CT pulmonary angiogram to further evaluate if there is persistent suspicion for pulmonary embolism. Head CT 07/07/18 00:00 IMPRESSION: No CT evidence of acute large territory ischemic change. Sphenoid sinusitis. Right mastoid air cell fluid. EVIDENCE OF ACUTE STROKE: NO. Chest Ultrasound 07/13/18 00:00 IMPRESSION: Limited sonographic evaluation demonstrates mild right pleural effusion with associated consolidated lung, likely atelectasis KUB X-Ray 07/16/18 00:00 IMPRESSION: NO RADIOGRAPHIC EVIDENCE FOR ACUTE ABDOMINAL DISEASE. Chest X-Ray 07/18/18 06:00 IMPRESSION: No significant change. Assessment & Plan - Diagnosis (1) Sepsis Is this a current diagnosis for this admission?: Yes Plan: mrsa urine sputum (2) Acute and chronic respiratory failure with hypoxia Is this a current diagnosis for this admission?: Yes Plan: unchanged (3) CKD (chronic kidney disease) stage 4, GFR 15-29 ml/min Is this a current diagnosis for this admission?: Yes (4) Sacral decubitus ulcer, stage III Is this a current diagnosis for this admission?: Yes Plan: unChanged - Time Total Critical Time (Minutes): 40
--- NOTE | 2018-07-18 12:12 | PDOC PROGRESS REPORT ---
Subjective Progress Note for:: 07/17/18 Subjective:: Intubated and sedated Reason For Visit: UTI ,DECUB SEPSIS, UREMIA Physical Exam Vital Signs: Temp Pulse Resp BP Pulse Ox 98.4 F 71 12 158/67 H 99 07/18/18 04:00 07/18/18 08:20 07/18/18 08:20 07/18/18 05:46 07/18/18 08:20 Intake & Output 07/17/18 07/18/18 07/19/18 06:59 06:59 06:59 Intake Total 2105 1379 40 Output Total 1960 1160 Balance 145 219 40 Weight 66 kg 66.1 kg General appearance: PRESENT: no acute distress, disheveled, morbidly obese. ABSENT: cooperative Head exam: PRESENT: atraumatic, normocephalic Eye exam: PRESENT: conjunctiva pale. ABSENT: EOMI, nystagmus, periorbital swelling Mouth exam: PRESENT: dry mucosa, neck supple, tongue midline, other - ET tube Neck exam: ABSENT: carotid bruit, full ROM, JVD, lymphadenopathy, meningismus, tenderness, thyromegaly, tracheal deviation, tracheostomy, other Respiratory exam: PRESENT: decreased breath sounds, prolonged expiratory phas, rales, rhonchi, unlabored, wheezes. ABSENT: retraction, stridor Cardiovascular exam: PRESENT: RRR, +S1, +S2 Pulses: PRESENT: normal radial pulses GI/Abdominal exam: PRESENT: soft, other - PEG tube Gentrourinary exam: PRESENT: indwelling catheter Musculoskeletal exam: ABSENT: ambulatory, deformity, dislocation Neurological exam: ABSENT: awake Skin exam: PRESENT: dry Results Laboratory Results: 07/18/18 02:45 07/18/18 02:45 07/17/18 07/17/18 07/18/18 14:40 14:40 02:45 WBC 7.9 RBC 2.73 L Hgb 7.8 L Hct 23.4 L MCV 86 MCH 28.5 MCHC 33.2 RDW 15.7 H Plt Count 240 Seg Neutrophils % Lymphocytes % Monocytes % Eosinophils % Basophils % Absolute Neutrophils Absolute Lymphocytes Absolute Monocytes Absolute Eosinophils Absolute Basophils Carbonic Acid HCO3/H2CO3 Ratio ABG pH ABG pCO2 ABG pO2 ABG HCO3 ABG O2 Saturation ABG Base Excess FiO2 Sodium 138.8 Potassium 3.4 L Chloride 110 H Carbon Dioxide 18 L Anion Gap 11 BUN 63 H Creatinine 2.09 H Est GFR ( Amer) 28 L Est GFR (Non-Af Amer) 23 L Glucose 142 H Calcium 8.8 Magnesium 2.5 H Total Bilirubin AST ALT Alkaline Phosphatase Total Protein Albumin 07/18/18 07/18/18 07/18/18 02:45 02:45 05:15 WBC 7.9 RBC 2.85 L Hgb 8.0 L Hct 24.6 L MCV 86 MCH 28.1 MCHC 32.6 RDW 15.5 H Plt Count 248 Seg Neutrophils % 64.2 Lymphocytes % 16.7 Monocytes % 10.1 Eosinophils % 8.2 H Basophils % 0.8 Absolute Neutrophils 5.0 Absolute Lymphocytes 1.3 Absolute Monocytes 0.8 Absolute Eosinophils 0.6 Absolute Basophils 0.1 Carbonic Acid 0.93 L HCO3/H2CO3 Ratio 21:1 ABG pH 7.42 ABG pCO2 30.8 L ABG pO2 76.5 L ABG HCO3 19.6 L ABG O2 Saturation 95.7 ABG Base Excess -4.3 FiO2 30% Sodium 138.1 Potassium 3.3 L Chloride 109 H Carbon Dioxide 20 L Anion Gap 9 BUN 59 H Creatinine 2.18 H Est GFR ( Amer) 27 L Est GFR (Non-Af Amer) 22 L Glucose 87 Calcium 8.9 Magnesium Total Bilirubin 0.6 AST 10 L ALT 33 Alkaline Phosphatase 78 Total Protein 4.9 L Albumin 2.4 L 06/28/18 06/28/18 07/03/18 15:30 15:30 20:05 Creatine Kinase < 20 L 76 CK-MB (CK-2) Troponin I < 0.012 NT-Pro-B Natriuret Pep 07/03/18 07/04/18 07/04/18 20:05 02:38 02:38 Creatine Kinase 83 CK-MB (CK-2) 4.98 H 6.58 H Troponin I 0.078 0.158 NT-Pro-B Natriuret Pep 07/04/18 07/04/18 07/16/18 09:44 09:44 03:41 Creatine Kinase 43 CK-MB (CK-2) 5.94 H Troponin I 0.273 NT-Pro-B Natriuret Pep 6580 H Impressions: Abdomen/Pelvis CT 07/01/18 00:00 IMPRESSION: 1. Moderate constipation. 2. Left exophytic solid renal lesion has increased in size and now measures 2.1 cm. This could represent complex cyst although a solid mass cannot be excluded. 3. Decubitus ulcer just right of midline overlying the sacrum. Inflammation extends to the level of the lower sacrum and coccyx. Bone involvement cannot be excluded. 4. Subcutaneous edema. Lung Scan-VQ NM 07/02/18 13:06 IMPRESSION: Very limited anterior and anterior oblique planar perfusion images on bed bound patient unable to tolerate flat positioning and unable to perform ventilation imaging. Generally nondiagnostic examination without obvious perfusion defect. Recommend CT pulmonary angiogram to further evaluate if there is persistent suspicion for pulmonary embolism. Head CT 07/07/18 00:00 IMPRESSION: No CT evidence of acute large territory ischemic change. Sphenoid sinusitis. Right mastoid air cell fluid. EVIDENCE OF ACUTE STROKE: NO. Chest Ultrasound 07/13/18 00:00 IMPRESSION: Limited sonographic evaluation demonstrates mild right pleural effusion with associated consolidated lung, likely atelectasis KUB X-Ray 07/16/18 00:00 IMPRESSION: NO RADIOGRAPHIC EVIDENCE FOR ACUTE ABDOMINAL DISEASE. Chest X-Ray 07/18/18 06:00 IMPRESSION: No significant change. Assessment & Plan - Diagnosis (1) Sepsis Is this a current diagnosis for this admission?: Yes Plan: mrsa urine sputum (2) Acute and chronic respiratory failure with hypoxia Is this a current diagnosis for this admission?: Yes Plan: unchanged (3) CKD (chronic kidney disease) stage 4, GFR 15-29 ml/min Is this a current diagnosis for this admission?: Yes Plan: Stable (4) Sacral decubitus ulcer, stage III Is this a current diagnosis for this admission?: No Plan: unChanged - Time Total Critical Time (Minutes): 45
--- NOTE | 2018-07-18 12:15 | PDOC PROGRESS REPORT ---
Subjective Progress Note for:: 07/18/18 Subjective:: Intubated and sedated awaiting a visit from LTAC Reason For Visit: UTI ,DECUB SEPSIS, UREMIA Physical Exam Vital Signs: Temp Pulse Resp BP Pulse Ox 98.4 F 71 12 158/67 H 99 07/18/18 04:00 07/18/18 08:20 07/18/18 08:20 07/18/18 05:46 07/18/18 08:20 Intake & Output 07/17/18 07/18/18 07/19/18 06:59 06:59 06:59 Intake Total 2105 1379 40 Output Total 1960 1160 Balance 145 219 40 Weight 66 kg 66.1 kg General appearance: PRESENT: no acute distress, disheveled, morbidly obese. ABSENT: cooperative Head exam: PRESENT: atraumatic, normocephalic Eye exam: PRESENT: conjunctiva pale. ABSENT: EOMI, nystagmus, periorbital swelling Mouth exam: PRESENT: dry mucosa, neck supple, tongue midline, other - Endotracheal tube Neck exam: ABSENT: carotid bruit, full ROM, JVD, lymphadenopathy, meningismus, tenderness, thyromegaly, tracheal deviation, tracheostomy, other Respiratory exam: PRESENT: decreased breath sounds, prolonged expiratory phas, rales, rhonchi, unlabored, wheezes. ABSENT: retraction, stridor Cardiovascular exam: PRESENT: RRR, +S1, +S2 Pulses: PRESENT: normal radial pulses GI/Abdominal exam: PRESENT: soft, other - Feeding tube. ABSENT: normal bowel sounds Gentrourinary exam: PRESENT: indwelling catheter Extremities exam: PRESENT: other - Status post bilateral AKA Musculoskeletal exam: ABSENT: ambulatory, deformity, dislocation Neurological exam: ABSENT: awake Skin exam: PRESENT: dry, warm Results Laboratory Results: 07/18/18 02:45 07/18/18 02:45 07/17/18 07/17/18 07/18/18 14:40 14:40 02:45 WBC 7.9 RBC 2.73 L Hgb 7.8 L Hct 23.4 L MCV 86 MCH 28.5 MCHC 33.2 RDW 15.7 H Plt Count 240 Seg Neutrophils % Lymphocytes % Monocytes % Eosinophils % Basophils % Absolute Neutrophils Absolute Lymphocytes Absolute Monocytes Absolute Eosinophils Absolute Basophils Carbonic Acid HCO3/H2CO3 Ratio ABG pH ABG pCO2 ABG pO2 ABG HCO3 ABG O2 Saturation ABG Base Excess FiO2 Sodium 138.8 Potassium 3.4 L Chloride 110 H Carbon Dioxide 18 L Anion Gap 11 BUN 63 H Creatinine 2.09 H Est GFR ( Amer) 28 L Est GFR (Non-Af Amer) 23 L Glucose 142 H Calcium 8.8 Magnesium 2.5 H Total Bilirubin AST ALT Alkaline Phosphatase Total Protein Albumin 07/18/18 07/18/18 07/18/18 02:45 02:45 05:15 WBC 7.9 RBC 2.85 L Hgb 8.0 L Hct 24.6 L MCV 86 MCH 28.1 MCHC 32.6 RDW 15.5 H Plt Count 248 Seg Neutrophils % 64.2 Lymphocytes % 16.7 Monocytes % 10.1 Eosinophils % 8.2 H Basophils % 0.8 Absolute Neutrophils 5.0 Absolute Lymphocytes 1.3 Absolute Monocytes 0.8 Absolute Eosinophils 0.6 Absolute Basophils 0.1 Carbonic Acid 0.93 L HCO3/H2CO3 Ratio 21:1 ABG pH 7.42 ABG pCO2 30.8 L ABG pO2 76.5 L ABG HCO3 19.6 L ABG O2 Saturation 95.7 ABG Base Excess -4.3 FiO2 30% Sodium 138.1 Potassium 3.3 L Chloride 109 H Carbon Dioxide 20 L Anion Gap 9 BUN 59 H Creatinine 2.18 H Est GFR ( Amer) 27 L Est GFR (Non-Af Amer) 22 L Glucose 87 Calcium 8.9 Magnesium Total Bilirubin 0.6 AST 10 L ALT 33 Alkaline Phosphatase 78 Total Protein 4.9 L Albumin 2.4 L 06/28/18 06/28/18 07/03/18 15:30 15:30 20:05 Creatine Kinase < 20 L 76 CK-MB (CK-2) Troponin I < 0.012 NT-Pro-B Natriuret Pep 07/03/18 07/04/18 07/04/18 20:05 02:38 02:38 Creatine Kinase 83 CK-MB (CK-2) 4.98 H 6.58 H Troponin I 0.078 0.158 NT-Pro-B Natriuret Pep 07/04/18 07/04/18 07/16/18 09:44 09:44 03:41 Creatine Kinase 43 CK-MB (CK-2) 5.94 H Troponin I 0.273 NT-Pro-B Natriuret Pep 6580 H Impressions: Abdomen/Pelvis CT 07/01/18 00:00 IMPRESSION: 1. Moderate constipation. 2. Left exophytic solid renal lesion has increased in size and now measures 2.1 cm. This could represent complex cyst although a solid mass cannot be excluded. 3. Decubitus ulcer just right of midline overlying the sacrum. Inflammation extends to the level of the lower sacrum and coccyx. Bone involvement cannot be excluded. 4. Subcutaneous edema. Lung Scan-VQ NM 07/02/18 13:06 IMPRESSION: Very limited anterior and anterior oblique planar perfusion images on bed bound patient unable to tolerate flat positioning and unable to perform ventilation imaging. Generally nondiagnostic examination without obvious perfusion defect. Recommend CT pulmonary angiogram to further evaluate if there is persistent suspicion for pulmonary embolism. Head CT 07/07/18 00:00 IMPRESSION: No CT evidence of acute large territory ischemic change. Sphenoid sinusitis. Right mastoid air cell fluid. EVIDENCE OF ACUTE STROKE: NO. Chest Ultrasound 07/13/18 00:00 IMPRESSION: Limited sonographic evaluation demonstrates mild right pleural effusion with associated consolidated lung, likely atelectasis KUB X-Ray 07/16/18 00:00 IMPRESSION: NO RADIOGRAPHIC EVIDENCE FOR ACUTE ABDOMINAL DISEASE. Chest X-Ray 07/18/18 06:00 IMPRESSION: No significant change. Assessment & Plan - Diagnosis (1) Sepsis Is this a current diagnosis for this admission?: Yes Plan: Improved (2) Acute and chronic respiratory failure with hypoxia Is this a current diagnosis for this admission?: Yes Plan: LTAC to evaluate as patient is very weak not be able to cough successfully (3) CKD (chronic kidney disease) stage 4, GFR 15-29 ml/min Is this a current diagnosis for this admission?: Yes Plan: Stable (4) Sacral decubitus ulcer, stage III Is this a current diagnosis for this admission?: Yes Plan: unChanged - Time Total Critical Time (Minutes): 45
[2018-07-18 13:37] LABS: ANION GAP 11 (5-19); BLOOD UREA NITROGEN 59 mg/dL (7-20); CALCIUM 8.7 mg/dL (8.4-10.2); CARBON DIOXIDE 18 mmol/L (22-30); CHLORIDE 109 mmol/L (98-107); GLUCOSE 118 mg/dL (75-110); POTASSIUM 3.8 mmol/L (3.6-5.0); SODIUM 137.9 mmol/L (137-145)
[2018-07-18] MEDS: DEXTROSE 5%-1/2 NORMAL SALINE 1,000 ML IV PRN (13:54)
[2018-07-18] MEDS: ATORVASTATIN CALCIUM 40 MG TABLET PEG SCH (21:14)
[2018-07-19] MEDS: METOCLOPRAMIDE HCL INJ/PF 10 MG/2 ML SDV IV SCH ×2 (01:17→09:00)
[2018-07-19] MEDS: IPRATROPIUM/ALBUTEROL 0.5-2.5 MG/3 ML AMPUL NEB SCH ×2 (02:40→08:05)
[2018-07-19 02:55] LABS: ABSOLUTE EOSINOPHILS # (AUTO) 0.5 10^3/uL (0.0-0.6); ABSOLUTE MONOCYTES (AUTO) 0.8 10^3/uL (0.1-1.4); ABSOLUTE NEUT (AUTO) 5.2 10^3/uL (1.7-8.2); BASOPHILS % (AUTO) 0.4 % (0-2); HEMATOCRIT 24.3 % (36.0-47.0); LYMPHOCYTES % (AUTO) 13.5 % (13-45); MEAN CORPUSCULAR HEMOGLOBIN 27.9 pg (27.0-33.4); MEAN CORPUSCULAR HGB CONC 32.4 g/dL (32.0-36.0); MEAN CORPUSCULAR VOLUME 86 fl (80-97); MONOCYTES % (AUTO) 10.6 % (3-13); PLATELET COUNT 247 10^3/uL (150-450); RED BLOOD COUNT 2.81 10^6/uL (3.72-5.28); RED CELL DISTRIBUTION WIDTH 15.6 % (11.5-14.0); SEGMENTED NEUTROPHILS % (AUTO) 68.5 % (42-78); TOTAL CELLS COUNTED % (AUTO) 100 %; WHITE BLOOD COUNT 7.5 10^3/uL (4.0-10.5)
[2018-07-19 02:58] LABS: HEMOGLOBIN 7.9 g/dL (12.0-15.5)
[2018-07-19] MEDS: DEXTROSE 5%-1/2 NORMAL SALINE 1,000 ML IV PRN (02:58)
[2018-07-19 04:22] LABS: ARTERIAL BLOOD BASE EXCESS -4.7 mmol/L; ARTERIAL BLOOD H2CO3 0.95 mmol/L (1.05-1.35); ARTERIAL BLOOD HCO3 19.5 mmol/L (20-24); ARTERIAL BLOOD O2 SATURATION 96.3 % (94-98); ARTERIAL BLOOD PCO2 31.5 mmHg (35-45); ARTERIAL BLOOD PH 7.41 (7.35-7.45); ARTERIAL BLOOD PO2 81.8 mmHg (80-100); ARTERIAL BLOOD TOTAL CO2 20.4 mmol/L (21-25)
[2018-07-19 04:23] LABS: ARTERIAL BLOOD FIO2 30%
[2018-07-19] MEDS: ENALAPRILAT DIHYDRATE INJ/PF 1.25 MG/1 ML SDV IV SCH ×2 (05:25→12:08)
[2018-07-19] MEDS: GABAPENTIN 100 MG CAPSULE PEG SCH (05:26)
[2018-07-19 05:36] LABS: ALANINE AMINOTRANSFERASE 26 U/L (9-52); ALBUMIN 2.2 g/dL (3.5-5.0); ALKALINE PHOSPHATASE 100 U/L (38-126); ANION GAP 10 (5-19); ASPARTATE AMINO TRANSFERASE 14 U/L (14-36); BILIRUBIN,DIRECT 0.4 mg/dL (0.0-0.4); BILIRUBIN,TOTAL 0.5 mg/dL (0.2-1.3); BLOOD UREA NITROGEN 55 mg/dL (7-20); CALCIUM 8.6 mg/dL (8.4-10.2); CARBON DIOXIDE 19 mmol/L (22-30); CHLORIDE 108 mmol/L (98-107); GLUCOSE 138 mg/dL (75-110); POTASSIUM 3.8 mmol/L (3.6-5.0); SODIUM 136.7 mmol/L (137-145); TOTAL PROTEIN 4.7 g/dL (6.3-8.2)
[2018-07-19] MEDS: INSULIN LISPRO 100 UNIT/ML 3 ML VIAL SUBCUT SCH ×2 (05:59→12:08)
[2018-07-19] MEDS: ACETYLCYSTEINE 20% SOLN 800 MG/4 ML VIAL.NEB IH SCH (08:05)
--- NOTE | 2018-07-19 08:14 | PDOC DISCHARGE SUMMARY ---
General - Admit/Disc Date/PCP Admission Date/Primary Care Provider: 06/28/18 18:36 SHELBY RAYA MD Discharge Date: 07/19/18 - Discharge summary being dictated tonight in anticipation of manager client support transfer to long-term acute [facility] - Discharge Diagnosis (1) Acute hypoxemic respiratory failure Is this a current diagnosis for this admission?: Yes Summary: Patient had a complex hospital course. Initially she was admitted for sepsis with urinary tract infection on June 29. She experienced PEA arrest on 03 July. She was transferred to the ICU and intubated. She was stable for several days. She then developed complete atelectasis of the right lung requiring bronchoscopy. Tracheal aspirate was positive for methicillin- resistant staph aureus. With bronchial lavage and suctioning the right lung began to expand. The patient was on aggressive antibiotic therapy. We have not seen a consistent improvement in her pneumonia. There is been varying appearances of patchy consolidation both on the right and left despite antibiotic therapy. An endotracheal specimen did grow Ashley but this was felt to be colonization and not treated with antifungal medication. At this point she remains intubated and ventilated. She has been accepted at a long-term acute care facility and they will be performing a tracheostomy there tomorrow or the next day for long-term vent weaning. Her premorbid condition was fairly debilitated secondary to late effects of stroke. As of July 18 she still has multiple opacities on x-ray and is still on vancomycin and levofloxacin. (2) CKD (chronic kidney disease) stage 4, GFR 15-29 ml/min Is this a current diagnosis for this admission?: Yes Summary: From a day of admission the patient's GFR was 19. It has only improved to 25. She does have chronic stage IV kidney disease. Her kidney failure has been stable. Medications have been dosed according to her renal function. (3) Pleural effusion Is this a current diagnosis for this admission?: Yes Summary: Most likely parapneumonic effusion. Ultrasound was performed and confirmed effusion however the patient on a ventilator the benefit did not outweigh the risk for thoracentesis. Continuing to monitor by chest x-ray. (4) Sacral decubitus ulcer, stage III Is this a current diagnosis for this admission?: Yes Summary: The patient presented with stage III decubitus ulcer. On July 03 surgery debrided the lesion. Continue current dressings until evaluated by wound care at the receiving facility. (5) Diabetes mellitus type 2 in obese Is this a current diagnosis for this admission?: Yes Summary: On the current tube feed regimen and insulin therapy the patient's glucose control has been very good. See medication administration reconciliation for details. (6) Hypertension Is this a current diagnosis for this admission?: Yes Summary: Diastolic pressures have been running high. Because of GI bleeding PEG tube administration of medications was temporarily on hold. She is currently on IV enalapril and this can be changed to PEG tube administration. She is also on amlodipine, labetalol and a clonidine patch. Adjustments will still be required to achieve consistent control. (7) Hypokalemia Is this a current diagnosis for this admission?: Yes Summary: The patient has exhibited low potassium recently. She is on the electrolyte replacement protocol and has been receiving supplements. (8) Anemia Is this a current diagnosis for this admission?: Yes Summary: Likely secondary to GI bleed as well as anemia of chronic disease. Continue to monitor hemoglobin. Patient has received 2 units of packed red blood cells during this hospitalization. (9) Gastrointestinal bleed Is this a current diagnosis for this admission?: Yes Summary: Please see endoscopy notes and pictures. A large clot was found. There is no active bleeding. Site was injected. The patient is on maximum proton pump inhibitor therapy at this time. - Additional Information Resuscitation Status: Full Code Home Medications: Amlodipine Besylate [Norvasc 5 mg Tablet] 10 mg PO DAILY 03/28/18 Atorvastatin Calcium [Lipitor 40 mg Tablet] 40 mg PO QHS 05/19/18 Gabapentin [Neurontin 100 mg Capsule] 100 mg PO QHS 05/19/18 Cholecalciferol (Vitamin D3) [Vitamin D3 5000 unit Capsule] 5,000 unit PO DAILY 06/28/18 Clonidine [Catapres-Tts 3 (0.3 mg/24 Hr) Transderm Patch] 1 patch TD FR@1000 06/28/18 Acetaminophen [Tylenol Soln 325 mg/10.15 ml Udcup] 650 mg PEG Q6HP PRN udc 07/18/18 Acetylcysteine [Mucomist 20% Soln 800 mg/4 mL] 600 mg IH RTBID vial 07/18/18 Amlodipine Besylate [Norvasc 10 mg Tablet] 10 mg PEG DAILY tablet 07/18/18 Aspirin [Ecotrin 81 mg EC Tablet] 81 mg PO Q12 #0 07/18/18 Bisacodyl [Dulcolax 10 mg Supp.rect] 10 mg MN DAILYP PRN supp.rect 07/18/18 Cetirizine HCl [Zyrtec 5 mg Tablet] 5 mg PEG DAILY tablet 07/18/18 Clonidine [Catapres-Tts 3 (0.3 mg/24 Hr) Transderm Patch] 1 each TD Sa@10 patch.tdwk 07/18/18 Clopidogrel Bisulfate [Plavix 75 mg Tablet] 75 mg PO DAILY #0 07/18/18 Docusate Sodium [Colace Udc 100 mg/10 ml Oral Soln] 200 mg PEG DAILY udc 07/18/18 Enalaprilat Dihydrate [Vasotec Inj/Pf 1.25 mg/1 ml Sdv] 0.625 mg IV Q6 vial 07/18/18 Fondaparinux Sodium [Arixtra Inj 2.5 mg/0.5 ml Disp.syrin] 2.5 mg SUBCUT DAILY disp.syrin 07/18/18 Insulin Lispro [Humalog Insulin (Lispro) 100 unit/mL] 0 - 12 unit SUBCUT Q6 unit 07/18/18 Ipratropium/Albuterol Sulfate [Duoneb 3 ml Ampul] 3 ml NEB [id number] PRN vial.neb 07/18/18 Ipratropium/Albuterol Sulfate [Duoneb 3 ml Ampul] 3 ml NEB RTQ6 vial.neb 07/18/18 Labetalol HCl [Normodyne 200 mg Tablet] 100 mg PEG Q12 tablet 07/18/18 Labetalol HCl [Normodyne Inj 20 mg/4 ml Syringe] 20 mg IV Q2HP PRN disp.syrin 07/18/18 Lactulose [Cephulac Syrup 20 gm/30 ml Udcup] 200 gm MN DAILYP PRN udc 07/18/18 Lubiprostone [Amitiza 24 Mcg Capsule] 24 mcg PO DAILY capsule 07/18/18 Metoclopramide HCl [Reglan Inj/Pf 10 mg/2 ml Sdv] 5 mg IV Q8A vial 07/18/18 Ondansetron HCl/Pf [Zofran Inj/Pf 4 mg/2 ml Sdv] 4 mg IV Q4HP PRN vial 07/18/18 Pantoprazole Sodium [Protonix IV Inj 40 mg Vial] 80 mg IV Q12 vial 07/18/18 Promethazine HCl [Phenergan 6.25 mg/5 ml Syrup] 6.25 mg PEG Q4HP PRN ml 07/18/18 Vancomycin HCl [Vancocin Inj 500 mg Vial] 500 mg IV Q3DAYS vial 07/18/18 History of Present Illness Patient complains of: Altered mental status with cystitis History of Present Illness: GEORGE LAUGHLIN is a 68 year old female with late effects of stroke including immobility with approximately 70% of her time in bed and 30% of her time in wheelchair. Her son transfers her by [employer]. She has a stage III decubitus ulcer on admission. She presented with altered mental status and was found to have methicillin-resistant staph aureus cystitis with sepsis. She was referred to the hospital service for admission. Hospital Course Hospital Course: The patient had a lengthy and complex hospital stay. Please see medical records for full details. Please see above as well. The patient was admitted for sepsis from cystitis with methicillin-resistant staph aureus. She experienced cardiac arrest with pulseless electrical activity and was quickly resuscitated. She was transferred to the ICU intubated and on mechanical ventilation. She subsequently developed pneumonia with atelectasis of the right lung requiring bronchoscopy with lavage. Large amounts of thick mucoid material were suctioned. Cultures were positive for methicillin-resistant staph aureus. Since that time she has had patchy areas of consolidation bilaterally with small pleural effusion. She has been unable to consistently wean and is transferring to long-term acute care hospital for tracheostomy and long-term vent weaning. In addition she had an ileus with feculent gastric secretions by NG tube. She had evidence of GI bleeding when checking residuals from her PEG tube. Endoscop y revealed a large clot but no active bleeding and the area was injected. She has a left below-knee amputation and right above-knee amputation from peripheral arterial disease and unsuccessful intervention. This also contributes to her immobility in addition to the stroke. The stage III decubitus ulcer has been debrided during this hospitalization. The patient is transferring to a long-term acute care hospital for long-term vent weaning to maximize the possibility of recovery. Physical Exam Vital Signs: Temp Pulse Resp BP Pulse Ox 96.6 F L 71 12 175/77 H 98 07/18/18 12:00 07/18/18 18:00 07/18/18 18:00 07/18/18 18:00 07/18/18 18:00 Intake & Output 07/17/18 07/18/18 07/19/18 06:59 06:59 06:59 Intake Total 2105 1379 1400 Output Total 4706 1160 575 Balance 145 219 825 Weight 66 kg 66.1 kg General appearance: PRESENT: no acute distress, well-developed - This is a well- developed but extremely frail appearing 68-year-old female who looks older than her stated age. Her eyes are open but she is not responding with head nodding. There is no tracking. It is hard to know if she understands the questions. Head exam: PRESENT: atraumatic, normocephalic Eye exam: PRESENT: conjunctiva pale. ABSENT: scleral icterus Ear exam: PRESENT: normal external ear exam Mouth exam: PRESENT: other - Endotracheal tube in place Respiratory exam: PRESENT: rhonchi - Scattered rhonchi bilaterally, symmetrical. ABSENT: accessory muscle use, rales, tachypnea, wheezes Cardiovascular exam: PRESENT: RRR - With borderline tachycardia, +S1, +S2 GI/Abdominal exam: PRESENT: hypoactive bowel sounds, soft, other - PEG tube in place. ABSENT: distended, tenderness Rectal exam: PRESENT: deferred Gentrourinary exam: PRESENT: indwelling catheter Extremities exam: PRESENT: other - Bilateral amputations. Right above-knee and left below knee. Musculoskeletal exam: ABSENT: ambulatory Neurological exam: PRESENT: alert - She is alert but noninteractive. Appears to be staring blankly into space. No recognizable response to her name or simple questions such as to have any pain., awake Psychiatric exam: PRESENT: flat affect. ABSENT: agitated, anxious Results Laboratory Results: 07/18/18 02:45 07/18/18 12:52 07/18/18 07/18/18 07/18/18 02:45 02:45 02:45 WBC 7.9 RBC 2.85 L Hgb 8.0 L Hct 24.6 L MCV 86 MCH 28.1 MCHC 32.6 RDW 15.5 H Plt Count 248 Seg Neutrophils % 64.2 Lymphocytes % 16.7 Monocytes % 10.1 Eosinophils % 8.2 H Basophils % 0.8 Absolute Neutrophils 5.0 Absolute Lymphocytes 1.3 Absolute Monocytes 0.8 Absolute Eosinophils 0.6 Absolute Basophils 0.1 Carbonic Acid HCO3/H2CO3 Ratio ABG pH ABG pCO2 ABG pO2 ABG HCO3 ABG O2 Saturation ABG Base Excess FiO2 Sodium 138.1 Potassium 3.3 L Chloride 109 H Carbon Dioxide 20 L Anion Gap 9 BUN 59 H Creatinine 2.18 H Est GFR ( Amer) 27 L Est GFR (Non-Af Amer) 22 L Glucose 87 Calcium 8.9 Magnesium 2.5 H Total Bilirubin 0.6 AST 10 L ALT 33 Alkaline Phosphatase 78 Total Protein 4.9 L Albumin 2.4 L 07/18/18 07/18/18 05:15 12:52 WBC RBC Hgb Hct MCV MCH MCHC RDW Plt Count Seg Neutrophils % Lymphocytes % Monocytes % Eosinophils % Basophils % Absolute Neutrophils Absolute Lymphocytes Absolute Monocytes Absolute Eosinophils Absolute Basophils Carbonic Acid 0.93 L HCO3/H2CO3 Ratio 21:1 ABG pH 7.42 ABG pCO2 30.8 L ABG pO2 76.5 L ABG HCO3 19.6 L ABG O2 Saturation 95.7 ABG Base Excess -4.3 FiO2 30% Sodium 137.9 Potassium 3.8 Chloride 109 H Carbon Dioxide 18 L Anion Gap 11 BUN 59 H Creatinine 2.00 H Est GFR ( Amer) 30 L Est GFR (Non-Af Amer) 25 L Glucose 118 H Calcium 8.7 Magnesium Total Bilirubin AST ALT Alkaline Phosphatase Total Protein Albumin 06/28/18 06/28/18 07/03/18 15:30 15:30 20:05 Creatine Kinase < 20 L 76 CK-MB (CK-2) Troponin I < 0.012 NT-Pro-B Natriuret Pep 07/03/18 07/04/18 07/04/18 20:05 02:38 02:38 Creatine Kinase 83 CK-MB (CK-2) 4.98 H 6.58 H Troponin I 0.078 0.158 NT-Pro-B Natriuret Pep 07/04/18 07/04/18 07/16/18 09:44 09:44 03:41 Creatine Kinase 43 CK-MB (CK-2) 5.94 H Troponin I 0.273 NT-Pro-B Natriuret Pep 6580 H Impressions: Abdomen/Pelvis CT 07/01/18 00:00 IMPRESSION: 1. Moderate constipation. 2. Left exophytic solid renal lesion has increased in size and now measures 2.1 cm. This could represent complex cyst although a solid mass cannot be excluded. 3. Decubitus ulcer just right of midline overlying the sacrum. Inflammation extends to the level of the lower sacrum and coccyx. Bone involvement cannot be excluded. 4. Subcutaneous edema. Lung Scan-VQ NM 07/02/18 13:06 IMPRESSION: Very limited anterior and anterior oblique planar perfusion images on bed bound patient unable to tolerate flat positioning and unable to perform ventilation imaging. Generally nondiagnostic examination without obvious perfusion defect. Recommend CT pulmonary angiogram to further evaluate if there is persistent suspicion for pulmonary embolism. Head CT 07/07/18 00:00 IMPRESSION: No CT evidence of acute large territory ischemic change. Sphenoid sinusitis. Right mastoid air cell fluid. EVIDENCE OF ACUTE STROKE: NO. Chest Ultrasound 07/13/18 00:00 IMPRESSION: Limited sonographic evaluation demonstrates mild right pleural effusion with associated consolidated lung, likely atelectasis KUB X-Ray 07/16/18 00:00 IMPRESSION: NO RADIOGRAPHIC EVIDENCE FOR ACUTE ABDOMINAL DISEASE. Chest X-Ray 07/18/18 06:00 IMPRESSION: No significant change. Qualifiers - * PATIENT BEING DISCHARGED WITH ANY OF THE FOLLOWING DIAGNOSIS: No Acute Heart Failure Is this a Heart Failure Patient?: No Plan Discharge Plan: Anticipated manager client support transfer to long-term acute [facility]. Discharge prepared this evening. Time Spent: Greater than 30 Minutes
--- NOTE | 2018-07-19 08:44 | RADIOLOGY REPORT (SQ) ---
EXAM DESCRIPTION: CHEST SINGLE VIEW COMPLETED DATE/TIME: 07/19/2018 6:18 am REASON FOR STUDY: resp failure/pna COMPARISON: Multiple chest films since 07/02/2018, most recently 07/18/2018 EXAM PARAMETERS: NUMBER OF VIEWS: One view. TECHNIQUE: Single frontal radiographic view of the chest acquired. RADIATION DOSE: NA LIMITATIONS: None. FINDINGS: LUNGS AND PLEURA: Persistent left retrocardiac consolidation atelectasis versus pneumonia. Persistent right pleural thickening and right retrocardiac consolidation atelectasis versus pneumonia . No pneumothorax. MEDIASTINUM AND HILAR STRUCTURES: Old calcified nodule left thyroid HEART AND VASCULAR STRUCTURES: Stable cardiomegaly BONES: Osteoporotic HARDWARE: Endotracheal tube tip 4 cm above the perlita. OTHER: No other significant finding. IMPRESSION: No change from yesterday TECHNICAL DOCUMENTATION: JOB ID: [id number] All Rights Reserved Reading location - IP/workstation name: [email or web address]
[2018-07-19] MEDS: PANTOPRAZOLE SODIUM 40 MG VIAL IV SCH (09:01)
[2018-07-19] MEDS: CETIRIZINE 5 MG TABLET PEG SCH (09:01)
[2018-07-19] MEDS: LABETALOL HCL 200 MG TABLET PEG SCH (09:01)
[2018-07-19] MEDS: CLOPIDOGREL BISULFATE 75 MG TABLET PEG SCH (09:01)
[2018-07-19] MEDS: DOCUSATE SODIUM 100 MG/10 ML UDC PEG SCH (09:01)
[2018-07-19] MEDS: CHOLECALCIFEROL (D3) 1,000 UNIT TABLET PO SCH (09:01)
[2018-07-19] MEDS: LUBIPROSTONE 24 MCG CAPSULE PO SCH (09:02)
[2018-07-19] MEDS: ASPIRIN 81 MG TABLET, CHEWABLE PEG SCH (09:02)
[2018-07-19] MEDS: AMLODIPINE BESYLATE 10 MG TABLET PEG SCH (09:02)
[2018-07-19] MEDS: LEVOFLOXACIN 500 MG/D5W RTU 500 MG/100 ML RTUPB IV SCH (09:02)
--- NOTE | 2018-07-19 09:07 | PDOC PROGRESS REPORT ---
Subjective Progress Note for:: 07/19/18 Subjective:: Intubated and sedated accepted to LTAC Reason For Visit: UTI ,DECUB SEPSIS, UREMIA Physical Exam Vital Signs: Temp Pulse Resp BP Pulse Ox 98.1 F 76 12 182/80 H 99 07/19/18 08:00 07/19/18 08:06 07/19/18 08:06 07/19/18 08:00 07/19/18 08:06 Intake & Output 07/18/18 07/19/18 07/20/18 06:59 06:59 06:59 Intake Total 1379 2850 Output Total 1160 1135 0 Balance 219 1715 0 Weight 66.1 kg 68.7 kg General appearance: PRESENT: no acute distress, disheveled, morbidly obese. ABSENT: cooperative Head exam: PRESENT: atraumatic, normocephalic Eye exam: PRESENT: conjunctiva pale. ABSENT: nystagmus, periorbital swelling Mouth exam: PRESENT: dry mucosa, neck supple, tongue midline, other - ET Neck exam: ABSENT: carotid bruit, full ROM, JVD, lymphadenopathy, meningismus, tenderness, thyromegaly, tracheal deviation, tracheostomy, other Respiratory exam: PRESENT: decreased breath sounds, prolonged expiratory phas, rales, rhonchi, unlabored, wheezes. ABSENT: retraction, tachypnea Cardiovascular exam: PRESENT: RRR, +S1, +S2 Pulses: PRESENT: normal radial pulses GI/Abdominal exam: PRESENT: soft, other - PEG tube Extremities exam: PRESENT: other - s/p bilateral aka Neurological exam: ABSENT: awake Skin exam: PRESENT: dry, warm Results Laboratory Results: 07/19/18 02:40 07/19/18 05:06 07/18/18 07/19/18 07/19/18 12:52 02:40 03:59 WBC 7.5 RBC 2.81 L Hgb 7.9 L Hct 24.3 L MCV 86 MCH 27.9 MCHC 32.4 RDW 15.6 H Plt Count 247 Seg Neutrophils % 68.5 Lymphocytes % 13.5 Monocytes % 10.6 Eosinophils % 7.0 H Basophils % 0.4 Absolute Neutrophils 5.2 Absolute Lymphocytes 1.0 Absolute Monocytes 0.8 Absolute Eosinophils 0.5 Absolute Basophils 0.0 Carbonic Acid 0.95 L HCO3/H2CO3 Ratio 20:1 ABG pH 7.41 ABG pCO2 31.5 L ABG pO2 81.8 ABG HCO3 19.5 L ABG O2 Saturation 96.3 ABG Base Excess -4.7 FiO2 30% Sodium 137.9 Potassium 3.8 Chloride 109 H Carbon Dioxide 18 L Anion Gap 11 BUN 59 H Creatinine 2.00 H Est GFR ( Amer) 30 L Est GFR (Non-Af Amer) 25 L Glucose 118 H Calcium 8.7 Magnesium Total Bilirubin AST ALT Alkaline Phosphatase Total Protein Albumin Prealbumin 07/19/18 05:06 WBC RBC Hgb Hct MCV MCH MCHC RDW Plt Count Seg Neutrophils % Lymphocytes % Monocytes % Eosinophils % Basophils % Absolute Neutrophils Absolute Lymphocytes Absolute Monocytes Absolute Eosinophils Absolute Basophils Carbonic Acid HCO3/H2CO3 Ratio ABG pH ABG pCO2 ABG pO2 ABG HCO3 ABG O2 Saturation ABG Base Excess FiO2 Sodium 136.7 L Potassium 3.8 Chloride 108 H Carbon Dioxide 19 L Anion Gap 10 BUN 55 H Creatinine 2.05 H Est GFR ( Amer) 29 L Est GFR (Non-Af Amer) 24 L Glucose 138 H Calcium 8.6 Magnesium 2.4 H Total Bilirubin 0.5 AST 14 ALT 26 Alkaline Phosphatase 100 Total Protein 4.7 L Albumin 2.2 L Prealbumin 8.0 L 06/28/18 06/28/18 07/03/18 15:30 15:30 20:05 Creatine Kinase < 20 L 76 CK-MB (CK-2) Troponin I < 0.012 NT-Pro-B Natriuret Pep 07/03/18 07/04/18 07/04/18 20:05 02:38 02:38 Creatine Kinase 83 CK-MB (CK-2) 4.98 H 6.58 H Troponin I 0.078 0.158 NT-Pro-B Natriuret Pep 07/04/18 07/04/18 07/16/18 09:44 09:44 03:41 Creatine Kinase 43 CK-MB (CK-2) 5.94 H Troponin I 0.273 NT-Pro-B Natriuret Pep 6580 H Impressions: Abdomen/Pelvis CT 07/01/18 00:00 IMPRESSION: 1. Moderate constipation. 2. Left exophytic solid renal lesion has increased in size and now measures 2.1 cm. This could represent complex cyst although a solid mass cannot be excluded. 3. Decubitus ulcer just right of midline overlying the sacrum. Inflammation extends to the level of the lower sacrum and coccyx. Bone involvement cannot be excluded. 4. Subcutaneous edema. Lung Scan-VQ NM 07/02/18 13:06 IMPRESSION: Very limited anterior and anterior oblique planar perfusion images on bed bound patient unable to tolerate flat positioning and unable to perform v entilation imaging. Generally nondiagnostic examination without obvious perfusion defect. Recommend CT pulmonary angiogram to further evaluate if there is persistent suspicion for pulmonary embolism. Head CT 07/07/18 00:00 IMPRESSION: No CT evidence of acute large territory ischemic change. Sphenoid sinusitis. Right mastoid air cell fluid. EVIDENCE OF ACUTE STROKE: NO. Chest Ultrasound 07/13/18 00:00 IMPRESSION: Limited sonographic evaluation demonstrates mild right pleural effusion with associated consolidated lung, likely atelectasis KUB X-Ray 07/16/18 00:00 IMPRESSION: NO RADIOGRAPHIC EVIDENCE FOR ACUTE ABDOMINAL DISEASE. Chest X-Ray 07/19/18 06:00 IMPRESSION: No change from yesterday Assessment & Plan - Diagnosis (1) Sepsis Qualifiers: Sepsis type: methicillin resistant Staphylococcus aureus Qualified Code(s): A41.02 - Sepsis due to Methicillin resistant Staphylococcus aureus Is this a current diagnosis for this admission?: Yes Plan: Improved mrsa (2) Acute and chronic respiratory failure with hypoxia Is this a current diagnosis for this admission?: Yes Plan: LTAC to receive patient today (3) CKD (chronic kidney disease) stage 4, GFR 15-29 ml/min Is this a current diagnosis for this admission?: Yes Plan: Stable (4) Sacral decubitus ulcer, stage III Is this a current diagnosis for this admission?: Yes Plan: unChanged - Time Total Critical Time (Minutes): 45
[2018-07-19 12:09] VITALS: BP 175/73
== END 2018-07-19 13:25 | DRG 870 ==
LOC: ER 11:59 → EH 18:36 → 3N 06-29 16:15 → ICU 07-03 20:18 → 3S 07-11 18:03 → ICU 07-12 16:20
PROVIDERS: ADMIT Internal Medicine; ATTEND Internal Medicine
PROC: 0HB6XZZ Excision of Back Skin, External Approach (ICD-10-PCS; 2018-07-03)
PROC: 0BH17EZ Insertion of Endotracheal Airway into Trachea, Via Natural or Artificial Opening (ICD-10-PCS; 2018-07-04)
PROC: 5A1945Z Respiratory Ventilation, 24-96 Consecutive Hours (ICD-10-PCS; 2018-07-04)
PROC: 30233N1 Transfusion of Nonautologous Red Blood Cells into Peripheral Vein, Percutaneous Approach (ICD-10-PCS; 2018-07-06)
PROC: 5A1955Z Respiratory Ventilation, Greater than 96 Consecutive Hours (ICD-10-PCS; principal; 2018-07-12)
PROC: 0BH17EZ Insertion of Endotracheal Airway into Trachea, Via Natural or Artificial Opening (ICD-10-PCS; 2018-07-12)
PROC: 0B9D8ZX Drainage of Right Middle Lung Lobe, Via Natural or Artificial Opening Endoscopic, Diagnostic (ICD-10-PCS; 2018-07-13)
PROC: 0B9C8ZX Drainage of Right Upper Lung Lobe, Via Natural or Artificial Opening Endoscopic, Diagnostic (ICD-10-PCS; 2018-07-13)
PROC: 0B9G8ZX Drainage of Left Upper Lung Lobe, Via Natural or Artificial Opening Endoscopic, Diagnostic (ICD-10-PCS; 2018-07-13)
PROC: 3E0G8GC Introduction of Other Therapeutic Substance into Upper GI, Via Natural or Artificial Opening Endoscopic (ICD-10-PCS; 2018-07-17)
PROC: 0DJ08ZZ Inspection of Upper Intestinal Tract, Via Natural or Artificial Opening Endoscopic (ICD-10-PCS; 2018-07-17)
DX: A41.02 Sepsis due to Methicillin resistant Staphylococcus aureus (principal); L89.153 Pressure ulcer of sacral region, stage 3; L89.893 Pressure ulcer of other site, stage 3; G93.41 Metabolic encephalopathy; J96.21 Acute and chronic respiratory failure with hypoxia; I46.9 Cardiac arrest, cause unspecified; J15.212 Pneumonia due to Methicillin resistant Staphylococcus aureus; K29.71 Gastritis, unspecified, with bleeding; N17.9 Acute kidney failure, unspecified; N30.01 Acute cystitis with hematuria; E87.1 Hypo-osmolality and hyponatremia; N18.4 Chronic kidney disease, stage 4 (severe); J98.11 Atelectasis; K56.7 Ileus, unspecified; J90 Pleural effusion, not elsewhere classified; I12.9 Hypertensive chronic kidney disease with stage 1 through stage 4 chronic kidney disease, or unspecified chronic kidney disease; L89.322 Pressure ulcer of left buttock, stage 2; L89.312 Pressure ulcer of right buttock, stage 2; E11.51 Type 2 diabetes mellitus with diabetic peripheral angiopathy without gangrene; I73.9 Peripheral vascular disease, unspecified; E78.5 Hyperlipidemia, unspecified; E11.22 Type 2 diabetes mellitus with diabetic chronic kidney disease; B95.62 Methicillin resistant Staphylococcus aureus infection as the cause of diseases classified elsewhere; D72.829 Elevated white blood cell count, unspecified; K59.00 Constipation, unspecified; E83.41 Hypermagnesemia; Z93.1 Gastrostomy status; D63.1 Anemia in chronic kidney disease; E87.6 Hypokalemia; B96.20 Unspecified Escherichia coli [E. coli] as the cause of diseases classified elsewhere; F32.9 Major depressive disorder, single episode, unspecified; Z89.512 Acquired absence of left leg below knee; I69.398 Other sequelae of cerebral infarction; Z89.611 Acquired absence of right leg above knee; Z87.891 Personal history of nicotine dependence; Z82.49 Family history of ischemic heart disease and other diseases of the circulatory system; Z79.82 Long term (current) use of aspirin; Z79.899 Other long term (current) drug therapy; Z88.8 Allergy status to other drugs, medicaments and biological substances; Z91.040 Latex allergy status; Z88.5 Allergy status to narcotic agent; Z91.013 Allergy to seafood; Z91.018 Allergy to other foods; Z74.01 Bed confinement status; Z78.1 Physical restraint status
CPT/HCPCS: 36415; 36430; 36600; 43236; 51702; 70450; 71045; 74018; 74176; 76604; 78580; 80048; 80053; 80202; 81001; 82140; 82271; 82550; 82553; 82565; 82803; 82962; 83605; 83735; 83880; 84100; 84134; 84484; 85025; 85027; 85610; 85730; 86850; 86900; 86901; 86920; 87015; 87040; 87070; 87077; 87086; 87088; 87101; 87116; 87186; 87205; 87206; 88305; 88312; 89050; 93005; 93010; 93306; 94002; 94003; 94660; 94667; 94668; 96360; 96361; 99291; A4649; A6266; A9540; J0171; J0360; J0610; J0696; J0713; J1652; J1940; J1956; J2250; J2270; J2405; J2597; J2704; J2765; J3010; J3370; J3480; J3490; J7030; J7060; J7620; P9016; P9047; Q9969; S0164